=== PATIENT | male | born 1970 | race American Indian/Alaskan Native ===

== ENCOUNTER 2020-10-02 00:33 | Inpatient (IN) | payer BC, OTHER, SELFPAY ==
[2020-10-02] MEDS ORDERED: fentaNYL 100 MCG/2 ML INJ IV PRN (00:53)
[2020-10-02] MEDS ORDERED: MINERAL OIL/PETROLATUM, WHITE OPHTH OINT 3.5 GM OU PRN (00:53)
[2020-10-02] MEDS ORDERED: LIP THERAPY VASELINE TP PRN (00:53)
--- NOTE | 2020-10-02 00:55 | Emergency Department Report ---
ED Altered Mental Status HPI - General Chief Complaint: Altered Mental Status Stated Complaint: POSS STROKE PUI?: No Time Seen by Provider: 10/02/20 00:33 Mode of arrival: Stretcher Limitations: Altered Mental Status, Physical Limitation - History of Present Illness Initial Comments: Patient is a 50-year-old male who presents emergency room for altered mental status and decreased depression. Patient's minimally responsive. Patient is not responsive to pain. Patient brought in by EMS. EMS states that EMS states that patient's last known well time was last night 8 PM on 09/30/2020. Patient family states that the patient was sitting in the recliner at 8 PM on 09/30/2020 and when the family member returned home patient was in the same position but had vomited on himself. Patient was found to be unresponsive by the family and the family called EMS. EMS initiated a stroke alert due to the patient's mental status and minimal responsiveness. Patient has a history of diabetes hypertension. Patient was also diagnosed with COVID-19 1 week ago. MD Complaint: altered mental status, decreased responsiveness -: Sudden Consistency of Symptoms: constant - Related Data Allergies Allergy/AdvReac Type Severity Reaction Status Date / Time No Known Allergies Allergy Verified 10/02/20 01:44 ED Review of Systems ROS: Stated complaint: POSS STROKE Other details as noted in HPI Comment: Unobtainable due to pts medical conditions ED Past Medical Hx - Past Medical History Previous Medical History?: Yes Hx Hypertension: Yes Hx Diabetes: Yes - Surgical History Past Surgical History?: No - Family History Family history: no significant - Social History Smoking Status: Unknown if ever smoked Substance Use Type: None ED Physical Exam - General Limitations: Altered Mental Status, Physical Limitation General appearance: obtunded - Head Head exam: Present: atraumatic, normocephalic - Eye Eye exam: Present: normal appearance, PERRL Pupils: Present: normal accommodation - ENT ENT exam: Present: mucous membranes dry - Neck Neck exam: Present: normal inspection - Respiratory Respiratory exam: Present: normal lung sounds bilaterally. Absent: respiratory distress, wheezes, rales - Cardiovascular Cardiovascular Exam: Present: regular rate, normal rhythm. Absent: systolic murmur, diastolic murmur, rubs, gallop - GI/Abdominal GI/Abdominal exam: Present: soft, normal bowel sounds - Rectal Rectal exam: Present: deferred - Extremities Exam Extremities exam: Present: normal inspection - Back Exam Back exam: Present: normal inspection - Neurological Exam Neurological exam: Present: altered - Expanded Neurological Exam Expanded Best Eye Response (Parlin): (3) open to voice Best Motor Response ([place]): (1) no motor response Best Verbal Response ([place]lin): (1) no verbal response Parlin Total: 5 - Skin Skin exam: Present: warm, dry, intact, normal color. Absent: rash - Assessment Assessment Interval: Baseline - Level of Consciousness 1a. Level of Consciousness: coma/unresponsive - LOC Questions 1b. LOC Questions: dysarthric/intubated - LOC Command 1c. LOC Commands: performs no tasks correctly - Best Gaze 2. Best Gaze: normal - Visual 3. Visual: no visual loss - Facial Palsy 4. Facial Palsy: normal symmetrical movement - Motor Arm 5a. Motor Arm Left: no movement 5b. Motor Arm Right: no movement - Motor Leg 6a. Motor Leg Left: no movement 6b. Motor Leg Right: no movement - Limb Ataxia 7. Limb Ataxia: absent - Sensory 8. Sensory: no response/quadraplegic - Best Language 9. Best Language: coma/unresponsive - Dysarthria 10. Dysarthria: intubated or other barrier - Extinction and Inattention 11. Extinction/Inattention: no abnormality - Scoring Total Score: 27 Stroke Severity: Severe Stroke ED Course Vital Signs 10/01/20 10/01/20 10/01/20 21:30 22:00 22:30 Temperature Pulse Rate Respiratory Rate Blood Pressure 139/78 139/78 139/78 Blood Pressure [Right] O2 Sat by Pulse 95 95 90 Oximetry 10/01/20 10/01/20 10/02/20 23:00 23:30 00:00 Temperature Pulse Rate Respiratory Rate Blood Pressure 139/78 139/78 139/78 Blood Pressure [Right] O2 Sat by Pulse 96 93 92 Oximetry 10/02/20 10/02/20 10/02/20 00:30 01:00 01:11 Temperature Pulse Rate 104 H 96 H Respiratory 20 Rate Blood Pressure 139/78 129/64 129/64 Blood Pressure [Right] O2 Sat by Pulse 92 93 94 Oximetry 10/02/20 10/02/20 10/02/20 01:31 01:37 01:41 Temperature 98.4 F Pulse Rate 90 93 H Respiratory 20 20 Rate Blood Pressure 151/96 Blood Pressure 154/96 [Right] O2 Sat by Pulse 98 97 97 Oximetry 10/02/20 10/02/20 10/02/20 02:29 02:31 02:36 Temperature Pulse Rate 105 H 106 H Respiratory 20 21 Rate Blood Pressure 162/84 162/84 Blood Pressure [Right] O2 Sat by Pulse 93 Oximetry 10/02/20 10/02/20 10/02/20 02:59 03:01 03:31 Temperature Pulse Rate 109 H 93 H 86 Respiratory 20 20 Rate Blood Pressure 162/85 103/61 Blood Pressure [Right] O2 Sat by Pulse 94 94 Oximetry 10/02/20 10/02/20 10/02/20 04:01 04:03 04:31 Temperature Pulse Rate 82 82 76 Respiratory 20 20 Rate Blood Pressure 125/76 125/76 108/63 Blood Pressure [Right] O2 Sat by Pulse 95 95 96 Oximetry 10/02/20 05:01 Temperature Pulse Rate 75 Respiratory 20 Rate Blood Pressure 117/67 Blood Pressure [Right] O2 Sat by Pulse 98 Oximetry - Reevaluation(s) Reevaluation #1: Patient intubated. Patient on monitor. Patient stable on vent. Code stroke has already been initiated. 10/02/20 00:48 Reevaluation #2: Patient's vital signs are stable. Patient is on the ventilator. Patient on sedation. Sedation will be changed as needed. 10/02/20 01:12 Reevaluation #3: Patient's vital signs stable. Patient's heart rate improved. Patient stable. Patient's blood pressure stable. Patient still on the ventilator. 10/02/20 02:13 Reevaluation #4: Patient is starting to move while on the vent. Patient will have propofol added. Patient is already maxed on fentanyl. 10/02/20 03:03 Reevaluation #5: Patient admitted to the hospitalist service. 10/02/20 05:14 - Consultations Consultation #1: I discussed case with neurology. Neurology wants patient having immediate CT and CTA of the head neck. 10/02/20 00:55 Consultation #2: Hospitalist consulted for admission. Hospitalist to admit patient. 10/02/20 05:14 - Intubation Time Out Performed: Yes Sedative: Etomidate Paralytic: Rocuronium Laryngoscope: fiberoptic video scope Assist Device Used: fiberoptic device ET Tube Size: 7.5 Tube Secured Depth (cm): 24 Tube Secured Location: teeth Tube Placement Confirmation: visualized tube passing t, equal breath sounds bilat, no breath sounds over epi, confirmation by capnometr Patient Tolerated Procedure: well, no complications Intubation Complications: none - Lab Data Result diagrams: 10/02/20 01:01 10/02/20 01:01 Lab Results 10/02/20 10/02/20 10/02/20 Range/Units 01:01 01:01 01:01 WBC 11.0 (4.5-11.0) K/mm3 RBC 5.04 H (3.65-5.03) M/mm3 Hgb 13.7 (11.8-15.2) gm/dl Hct 41.0 (35.5-45.6) % MCV 81 L (84-94) fl MCH 27 L (28-32) pg MCHC 33 (32-34) % RDW 14.3 (13.2-15.2) % Plt Count 151 (140-440) K/mm3 Add Manual Diff Complete Total Counted 100 Seg Neuts % (Manual) 85.0 H (40.0-70.0) % Band Neutrophils % 3.0 % Lymphocytes % (Manual) 1.0 L (13.4-35.0) % Monocytes % (Manual) 11.0 H (0.0-7.3) % Nucleated RBC % 1.0 H (0.0-0.9) % Seg Neutrophils # Man 9.4 H (1.8-7.7) K/mm3 Band Neutrophils # 0.3 K/mm3 Lymphocytes # (Manual) 0.1 L (1.2-5.4) K/mm3 Abs React Lymphs (Man) 0.0 K/mm3 Monocytes # (Manual) 1.2 H (0.0-0.8) K/mm3 Eosinophils # (Manual) 0.0 (0.0-0.4) K/mm3 Basophils # (Manual) 0.0 (0.0-0.1) K/mm3 Metamyelocytes # 0.0 K/mm3 Myelocytes # 0.0 K/mm3 Promyelocytes # 0.0 K/mm3 Blast Cells # 0.0 K/mm3 WBC Morphology Not Reportable Hypersegmented Neuts Not Reportable Hyposegmented Neuts Not Reportable Hypogranular Neuts Not Reportable Smudge Cells Not Reportable Toxic Granulation Not Reportable Toxic Vacuolation Not Reportable Dohle Bodies Not Reportable Pelger-Huet Anomaly Not Reportable Yohan Rods Not Reportable Platelet Estimate Consistent w auto Clumped Platelets Not Reportable Plt Clumps, EDTA Not Reportable Large Platelets Few Giant Platelets Not Reportable Platelet Satelliting Not Reportable Plt Morphology Comment Not Reportable RBC Morphology Not Reportable Dimorphic RBCs Not Reportable Polychromasia Not Reportable Hypochromasia Not Reportable Poikilocytosis Not Reportable Anisocytosis 1+ Microcytosis Not Reportable Macrocytosis Not Reportable Spherocytes Not Reportable Pappenheimer Bodies Not Reportable Sickle Cells Not Reportable Target Cells Not Reportable Tear Drop Cells Not Reportable Ovalocytes Not Reportable Helmet Cells Not Reportable [place] Bodies Not Reportable [place] Rings Not Reportable Obdulia Cells Not Reportable Bite Cells Not Reportable Crenated Cell Not Reportable Elliptocytes Not Reportable Acanthocytes (Spur) Not Reportable Rouleaux Not Reportable Hemoglobin C Crystals Not Reportable Schistocytes Not Reportable Malaria parasites Not Reportable Shekhar Bodies Not Reportable Hem Pathologist Commnt No PT 15.3 H (12.2-14.9) Sec. INR 1.16 H (0.87-1.13) APTT 30.9 (24.2-36.6) Sec. Thrombin Time 23.2 H (15.1-19.6) Sec. ABG pH (7.320-7.450) POC ABG pCO2 (32.0-48.0) mmHg POC ABG pO2 (83-108) mmHg POC ABG HCO3 ABG O2 Saturation (0-100) POC ABG Base Excess ABG Hemoglobin (12.0-17.5) ABG Oxyhemoglobin (94-98) ABG Methemoglobin (0.0-1.5) ABG Sodium (136.0-145.0) mmol/L ABG Potassium (3.40-4.50) mmol/L ABG Chloride (98-107) mmol/L ABG Glucose (65-95) mg/dL Carboxyhemoglobin (0.5-1.5) FiO2 % Sodium 133 L (137-145) mmol/L Potassium 4.3 (3.6-5.0) mmol/L Chloride 85.1 L (98-107) mmol/L Carbon Dioxide 28 (22-30) mmol/L Anion Gap 24 mmol/L BUN 66 H (9-20) mg/dL Creatinine 5.6 H (0.8-1.3) mg/dL Estimated GFR 13 ml/min BUN/Creatinine Ratio 12 % Glucose 292 H (75-100) mg/dL Calcium 9.4 (8.4-10.2) mg/dL Total Bilirubin 0.80 (0.1-1.2) mg/dL AST 173 H (5-40) units/L ALT 139 H (7-56) units/L Alkaline Phosphatase 69 (35-129) units/L Total Creatine Kinase 2544 H (55-170) units/L CK-MB (CK-2) 14.8 H (0.0-4.0) ng/mL CK-MB (CK-2) Rel Index 0.5 (0-4) Troponin T 0.036 H (0.00-0.029) ng/mL Total Protein 7.8 (6.3-8.2) g/dL Albumin 3.3 L (3.9-5) g/dL Albumin/Globulin Ratio 0.7 % Triglycerides 427 H (2-149) mg/dL Cholesterol 165 (50-199) mg/dL LDL Cholesterol Direct TNR HDL Cholesterol 31 L (40-59) mg/dL Cholesterol/HDL Ratio 5.32 % Arterial Blood Glucose (65-95) mg/dL Urine Color (Yellow) Urine Turbidity (Clear) Urine pH (5.0-7.0) Ur Specific Adkins (1.003-1.030) Urine Protein (Negative) mg/dL Urine Glucose (UA) (Negative) mg/dL Urine Ketones (Negative) mg/dL Urine Blood (Negative) Urine Nitrite (Negative) Urine Bilirubin (Negative) Urine Urobilinogen (<2.0) mg/dL Ur Leukocyte Esterase (Negative) Urine WBC (Auto) (0.0-6.0) /HPF Urine RBC (Auto) (0.0-6.0) /HPF U Epithel Cells (Auto) (0-13.0) /HPF Amorphous Crystals Urine Mucus /HPF Urine Opiates Screen Urine Methadone Screen Ur Barbiturates Screen Ur Phencyclidine Scrn Ur Amphetamines Screen U Benzodiazepines Scrn Urine Cocaine Screen U Marijuana (THC) Screen Drugs of Abuse Note Plasma/Serum Alcohol (0-0.07) % 10/02/20 10/02/20 10/02/20 Range/Units 01:01 02:59 02:59 WBC (4.5-11.0) K/mm3 RBC (3.65-5.03) M/mm3 Hgb (11.8-15.2) gm/dl Hct (35.5-45.6) % MCV (84-94) fl MCH (28-32) pg MCHC (32-34) % RDW (13.2-15.2) % Plt Count (140-440) K/mm3 Add Manual Diff Total Counted Seg Neuts % (Manual) (40.0-70.0) % Band Neutrophils % % Lymphocytes % (Manual) (13.4-35.0) % Monocytes % (Manual) (0.0-7.3) % Nucleated RBC % (0.0-0.9) % Seg Neutrophils # Man (1.8-7.7) K/mm3 Band Neutrophils # K/mm3 Lymphocytes # (Manual) (1.2-5.4) K/mm3 Abs React Lymphs (Man) K/mm3 Monocytes # (Manual) (0.0-0.8) K/mm3 Eosinophils # (Manual) (0.0-0.4) K/mm3 Basophils # (Manual) (0.0-0.1) K/mm3 Metamyelocytes # K/mm3 Myelocytes # K/mm3 Promyelocytes # K/mm3 Blast Cells # K/mm3 WBC Morphology Hypersegmented Neuts Hyposegmented Neuts Hypogranular Neuts Smudge Cells Toxic Granulation Toxic Vacuolation Dohle Bodies Pelger-Huet Anomaly Yohan Rods Platelet Estimate Clumped Platelets Plt Clumps, EDTA Large Platelets Giant Platelets Platelet Satelliting Plt Morphology Comment RBC Morphology Dimorphic RBCs Polychromasia Hypochromasia Poikilocytosis Anisocytosis Microcytosis Macrocytosis Spherocytes Pappenheimer Bodies Sickle Cells Target Cells Tear Drop Cells Ovalocytes Helmet Cells [place] Bodies [place] Rings Obdulia Cells Bite Cells Crenated Cell Elliptocytes Acanthocytes (Spur) Rouleaux Hemoglobin C Crystals Schistocytes Malaria parasites Shekhar Bodies Hem Pathologist Commnt PT (12.2-14.9) Sec. INR (0.87-1.13) APTT (24.2-36.6) Sec. Thrombin Time (15.1-19.6) Sec. ABG pH (7.320-7.450) POC ABG pCO2 (32.0-48.0) mmHg POC ABG pO2 (83-108) mmHg POC ABG HCO3 ABG O2 Saturation (0-100) POC ABG Base Excess ABG Hemoglobin (12.0-17.5) ABG Oxyhemoglobin (94-98) ABG Methemoglobin (0.0-1.5) ABG Sodium (136.0-145.0) mmol/L ABG Potassium (3.40-4.50) mmol/L ABG Chloride (98-107) mmol/L ABG Glucose (65-95) mg/dL Carboxyhemoglobin (0.5-1.5) FiO2 % Sodium (137-145) mmol/L Potassium (3.6-5.0) mmol/L Chloride (98-107) mmol/L Carbon Dioxide (22-30) mmol/L Anion Gap mmol/L BUN (9-20) mg/dL Creatinine (0.8-1.3) mg/dL Estimated GFR ml/min BUN/Creatinine Ratio % Glucose (75-100) mg/dL Calcium (8.4-10.2) mg/dL Total Bilirubin (0.1-1.2) mg/dL AST (5-40) units/L ALT (7-56) units/L Alkaline Phosphatase (35-129) units/L Total Creatine Kinase (55-170) units/L CK-MB (CK-2) (0.0-4.0) ng/mL CK-MB (CK-2) Rel Index (0-4) Troponin T (0.00-0.029) ng/mL Total Protein (6.3-8.2) g/dL Albumin (3.9-5) g/dL Albumin/Globulin Ratio % Triglycerides (2-149) mg/dL Cholesterol (50-199) mg/dL LDL Cholesterol Direct HDL Cholesterol (40-59) mg/dL Cholesterol/HDL Ratio % Arterial Blood Glucose (65-95) mg/dL Urine Color Alison (Yellow) Urine Turbidity Cloudy (Clear) Urine pH 5.0 (5.0-7.0) Ur Specific Adkins 1.025 (1.003-1.030) Urine Protein >500 (Negative) mg/dL Urine Glucose (UA) 50 (Negative) mg/dL Urine Ketones Neg (Negative) mg/dL Urine Blood Lg (Negative) Urine Nitrite Neg (Negative) Urine Bilirubin Neg (Negative) Urine Urobilinogen < 2.0 (<2.0) mg/dL Ur Leukocyte Esterase Neg (Negative) Urine WBC (Auto) 8.0 H (0.0-6.0) /HPF Urine RBC (Auto) 3.0 (0.0-6.0) /HPF U Epithel Cells (Auto) 2.0 (0-13.0) /HPF Amorphous Crystals Few Urine Mucus Few /HPF Urine Opiates Screen Negative Urine Methadone Screen Negative Ur Barbiturates Screen Negative Ur Phencyclidine Scrn Negative Ur Amphetamines Screen Negative U Benzodiazepines Scrn Negative Urine Cocaine Screen Negative U Marijuana (THC) Screen Negative Drugs of Abuse Note Disclamer Plasma/Serum Alcohol < 0.01 (0-0.07) % // Range/Units 03:51 WBC (4.5-11.0) K/mm3 RBC (3.65-5.03) M/mm3 Hgb (11.8-15.2) gm/dl Hct (35.5-45.6) % MCV (84-94) fl MCH (28-32) pg MCHC (32-34) % RDW (13.2-15.2) % Plt Count (140-440) K/mm3 Add Manual Diff Total Counted Seg Neuts % (Manual) (40.0-70.0) % Band Neutrophils % % Lymphocytes % (Manual) (13.4-35.0) % Monocytes % (Manual) (0.0-7.3) % Nucleated RBC % (0.0-0.9) % Seg Neutrophils # Man (1.8-7.7) K/mm3 Band Neutrophils # K/mm3 Lymphocytes # (Manual) (1.2-5.4) K/mm3 Abs React Lymphs (Man) K/mm3 Monocytes # (Manual) (0.0-0.8) K/mm3 Eosinophils # (Manual) (0.0-0.4) K/mm3 Basophils # (Manual) (0.0-0.1) K/mm3 Metamyelocytes # K/mm3 Myelocytes # K/mm3 Promyelocytes # K/mm3 Blast Cells # K/mm3 WBC Morphology Hypersegmented Neuts Hyposegmented Neuts Hypogranular Neuts Smudge Cells Toxic Granulation Toxic Vacuolation Dohle Bodies Pelger-Huet Anomaly Yohan Rods Platelet Estimate Clumped Platelets Plt Clumps, EDTA Large Platelets Giant Platelets Platelet Satelliting Plt Morphology Comment RBC Morphology Dimorphic RBCs Polychromasia Hypochromasia Poikilocytosis Anisocytosis Microcytosis Macrocytosis Spherocytes Pappenheimer Bodies Sickle Cells Target Cells Tear Drop Cells Ovalocytes Helmet Cells [place] Bodies [place] Rings [place] Cells Bite Cells Crenated Cell Elliptocytes Acanthocytes (Spur) Rouleaux Hemoglobin C Crystals Schistocytes Malaria parasites Shekhar Bodies Hem Pathologist Commnt PT (12.2-14.9) Sec. INR (0.87-1.13) APTT (24.2-36.6) Sec. Thrombin Time (15.1-19.6) Sec. ABG pH 7.393 (7.320-7.450) POC ABG pCO2 46.2 (32.0-48.0) mmHg POC ABG pO2 55.2 L (83-108) mmHg POC ABG HCO3 27.5 ABG O2 Saturation 86.0 (0-100) POC ABG Base Excess 1.9 ABG Hemoglobin 16.5 (12.0-17.5) ABG Oxyhemoglobin 85.4 L (94-98) ABG Methemoglobin 0 (0.0-1.5) ABG Sodium 132.0 L (136.0-145.0) mmol/L ABG Potassium 3.8 (3.40-4.50) mmol/L ABG Chloride 89.0 L (98-107) mmol/L ABG Glucose 372 H (65-95) mg/dL Carboxyhemoglobin 0.7 (0.5-1.5) FiO2 % 100.0 Sodium (137-145) mmol/L Potassium (3.6-5.0) mmol/L Chloride (98-107) mmol/L Carbon Dioxide (22-30) mmol/L Anion Gap mmol/L BUN (9-20) mg/dL Creatinine (0.8-1.3) mg/dL Estimated GFR ml/min BUN/Creatinine Ratio % Glucose (75-100) mg/dL Calcium (8.4-10.2) mg/dL Total Bilirubin (0.1-1.2) mg/dL AST (5-40) units/L ALT (7-56) units/L Alkaline Phosphatase (35-129) units/L Total Creatine Kinase (55-170) units/L CK-MB (CK-2) (0.0-4.0) ng/mL CK-MB (CK-2) Rel Index (0-4) Troponin T (0.00-0.029) ng/mL Total Protein (6.3-8.2) g/dL Albumin (3.9-5) g/dL Albumin/Globulin Ratio % Triglycerides (2-149) mg/dL Cholesterol (50-199) mg/dL LDL Cholesterol Direct HDL Cholesterol (40-59) mg/dL Cholesterol/HDL Ratio % Arterial Blood Glucose 372 H (65-95) mg/dL Urine Color (Yellow) Urine Turbidity (Clear) Urine pH (5.0-7.0) Ur Specific Adkins (1.003-1.030) Urine Protein (Negative) mg/dL Urine Glucose (UA) (Negative) mg/dL Urine Ketones (Negative) mg/dL Urine Blood (Negative) Urine Nitrite (Negative) Urine Bilirubin (Negative) Urine Urobilinogen (<2.0) mg/dL Ur Leukocyte Esterase (Negative) Urine WBC (Auto) (0.0-6.0) /HPF Urine RBC (Auto) (0.0-6.0) /HPF U Epithel Cells (Auto) (0-13.0) /HPF Amorphous Crystals Urine Mucus /HPF Urine Opiates Screen Urine Methadone Screen Ur Barbiturates Screen Ur Phencyclidine Scrn Ur Amphetamines Screen U Benzodiazepines Scrn Urine Cocaine Screen U Marijuana (THC) Screen Drugs of Abuse Note Plasma/Serum Alcohol (0-0.07) % - EKG Data -: EKG Interpreted by Me EKG shows normal: sinus rhythm, axis, intervals, QRS complexes, ST-T waves Rate: tachycardia Interpretation: other (PVCs and bigeminy) - Radiology Data Radiology results: report reviewed, image reviewed interpreted by me: Chest x-ray: Bilateral pneumonia, no pneumothorax, ET tube in good placement, no osseous findings, CHEST 1 VIEW 10/02/2020 1:18 AM INDICATION / CLINICAL INFORMATION: ETT placement. Code stroke. COMPARISON: None available. FINDINGS: SUPPORT DEVICES: Endotracheal tube has been placed with the tip 3.6 cm above the juan daniel. HEART / MEDIASTINUM: Heart is mildly enlarged. LUNGS / PLEURA: Patchy bilateral airspace disease. No pneumothorax. ADDITIONAL FINDINGS: No significant additional findings. IMPRESSION: 1. Endotracheal tube in expected position. 2. Bilateral pneumonia. CT HEAD WITHOUT CONTRAST INDICATION / CLINICAL INFORMATION: CODE STROKE PROTOCOL!!!! Pt has stroke-like symptoms.. TECHNIQUE: All CT scans at this location are performed using CT dose reduction for ALARA by means of automated exposure control. COMPARISON: None available. FINDINGS: HEMORRHAGE: None. EXTRA-AXIAL SPACES: Normal in size and morphology for the patient's age. VENTRICULAR SYSTEM: Normal in size and morphology for the patient's age. CEREBRAL PARENCHYMA: Subtle areas of subcortical white matter hypodensity in the right frontal lobe. MIDLINE SHIFT / HERNIATION: None. CEREBELLUM / BRAINSTEM: No significant abnormality. ORBITS: Normal as visualized. SOFT TISSUES: No significant abnormality. SKULL: No significant abnormality. PARANASAL SINUSES / MASTOID AIR CELLS: Normal as visualized. ADDITIONAL FINDINGS: None. IMPRESSION: 1. Subtle subcortical white matter hypodensity in the right frontal lobe. No acute bleed. CT angio head INDICATION / CLINICAL INFORMATION: 50 years Male; CODE STROKE PROTOCOL!!!! Pt has stroke-like symptoms.. TECHNIQUE: Thin cut axial images obtained through the head during IV bolus contrast administration. Sagittal, coronal, and 3 plane MIP reconstructions performed by the technologist. NASCET type criteria used evaluate stenoses. Automated exposure control utilized for radiation reduction purposes. COMPARISON: None available. FINDINGS: INTERNAL CAROTID ARTERIES: There are foci of calcification involving distal in ternal carotid arteries. The motion degrades image quality in this intubated patient. However, there is no clear evidence of significant focal stenosis involving distal ICAs. The vertebral basilar system VERTEBROBASILAR SYSTEM: Also appears to demonstrate appropriate caliber without significant focal stenosis. CEREBRAL ARTERIES: The proximal cerebral arteries and adjacent segments dem onstrate appropriate caliber without significant focal stenosis or evidence of large vessel occlusi on. ANEURYSM: None identified. ADDITIONAL FINDINGS: Remainder of the surrounding soft tissues are grossly normal. IMPRESSION: There is no CTA evidence of large vessel occlusion CT angio neck INDICATION / CLINICAL INFORMATION: 50 years Male; CODE STROKE PROTOCOL!!!! Pt has stroke-like symptoms.. TECHNIQUE: Thin cut axial images obtained through the head during IV bolus contrast administration. Sagittal, coronal, and 3 plane MIP reconstructions performed by the technologist. NASCET type criteria used evaluate stenoses. All CT scans at this location are performed using CT dose reduction for ALARA by means of automated exposure control. COMPARISON: None available. FINDINGS: CAROTID ARTERIES: The motion and beam hardening degrade the image quality in this intubated patient. However, there is no clear evidence of significant stenosis involving carotid arteries by NASCET criteria. VERTEBRAL ARTERIES: The visualized vertebral arteries also appear to demo nstrate appropriate caliber without significant focal stenosis. ARCH: The arch vessels are particularly obscured by the streak artifact from the dense contrast within the adjacent venous structures. However, there is no clear evidence of significant stenosis involving origins of the arch vessels. ADDITIONAL FINDINGS: There is notable consolidation within the visualized left upper lung. Milder findings are seen on the right. IMPRESSION: The motion degrades the image quality in this intubated patient. However, there is no clear CTA evidence of significant stenosis involving cervical carotid or vertebral arteries by NASCET criteria. There is dense consolidation involving the visualized left upper lung. - Medical Decision Making Patient is a 50-year-old male presents emergency room for altered mental status. Patient diagnosed 1 week ago with Covid. Patient had a code stroke initiated after initial evaluation. During this evaluation, the patient was found to be hypoxic and minimally responsive. Patient was immediately intubated to protect his airway. Patient intubated without difficulty see procedure note. I discussed the case with neurology neurology recommends to proceed with code stroke to include CT of the head, CTA of the head and neck. Patient had a CT scan of the head was negative for acute findings. Patient had a CTA of the head and neck and they were both negative for large vessel occlusions. Patient had labs done which were multiple lab abnormalities including acute renal failure, rhabdomyolysis, elevated troponin. Patient given fluids and early antibiotics. Patient had a chest x-ray which shows bilateral pneumonia mostly consistent with COVID-19. Patient given Decadron, Rocephin and Zithromax. Patient required 2 forms of sedation to tolerate the vent. Patient admitted to the hospital service for further evaluation and treatment and admitted into the ICU. Critical care time documented due to the multiple reassessments, prolonged time at the bedside, interpretation of diagnostics and labs. - Differential Diagnosis Altered mental status, Covid pneumonia, sepsis, CVA, ICH, Critical Care Time: Yes Critical care time in (mins) excluding proc time.: 80 Critical care attestation.: If time is entered above; I have spent that time in minutes in the direct care of this critically ill patient, excluding procedure time. Critical Care Time: 80 minutes ED Disposition Clinical Impression: Unresponsiveness, COVID-19, Elevated CK, Elevated troponin I level, Acute encephalopathy Altered mental status Qualifiers: Altered mental status type: unspecified Qualified Code(s): R41.82 - Altered mental status, unspecified Respiratory failure Qualifiers: Chronicity: acute Respiratory failure complication: hypoxia Qualified Code(s): J96.01 - Acute respiratory failure with hypoxia Acute renal failure Qualifiers: Acute renal failure type: unspecified Qualified Code(s): N17.9 - Acute kidney failure, unspecified Rhabdomyolysis Qualifiers: Rhabdomyolysis type: non-traumatic Qualified Code(s): M62.82 - Rhabdomyolysis Pneumonia Qualifiers: Pneumonia type: due to unspecified organism Laterality: bilateral Lung location: unspecified part of lung Qualified Code(s): J18.9 - Pneumonia, un specified organism Sepsis Qualifiers: Sepsis type: sepsis due to unspecified organism Sepsis acute organ dysfunction status: with acute organ dysfunction Severe sepsis acute organ dysfunction type: acute respiratory failure Acute respiratory failure type: with hypoxia Severe sepsis shock status: without septic shock Qualified Code(s): A41.9 - Sepsis, unspecified organism Disposition: OP ADMIT IP TO THIS HOSP Is pt being admited?: Yes Does the pt Need Aspirin: No Condition: Critical Instructions: Bacterial Pneumonia (ED) Time of Disposition: 05:20
--- NOTE | 2020-10-02 01:25 | Consultation ---
History of Present Illness History of present illness: [facility] Consult Note # Demographics Consult Type: Acute Stroke Level 2 (4.5-24 hrs) Patient Location: Emergency Room First Name: Barron Last Name: Tyler Date of : 1970 Age: 50 Gender: Male Time of Initial Page (Eastern Time): 10/02/2020, 00:39 Time of Return Call (Eastern Time): 10/02/2020, 00:39 # HPI History: 50 year-old male presented to the ED after being found unresponsive. He was intubated upon arrival to the ED for airway protection. EMS was concerned about unilateral weakness (unclear which side). Patient was diagnosed with COVID 1 week ago. # Exam Vitals: vital signs reviewed # PMH-FH-SH Past Medical History: hypertension COVID # Assessment Impression: Acute encephalopathy - possible stroke # Plan Thrombolytic/Intervention: NOT IV Thrombolysis or IA Intervention candidate Thrombolytic Exclusion: > 4.5 hours Intraarterial Exclusion: CTA pending Labs: CBC comprehensive metabolic panel Imaging: (urgency: STAT): CT Head without contrast CT Angiogram Head and CT Angiogram Neck AND call back with results if abnormal Imaging: (urgency: routine): If symptoms persist without clear cause, consider brain MRI. Therapy/Evaluation: NPO until swallow evaluation PT/OT evaluation speech/swallow consultation Medication: aspirin 325 mg daily start statin with goal of LDL < 70 Other: permissive hypertension telemetry monitoring I have discussed my recommendations with the referring provider Disposition: admit Medications and Allergies Active Meds: Active Medications Fentanyl (Fentanyl 100 Mcg/2 Ml Inj) 50 mcg IV Q10MIN PRN PRN Reason: ANALGESIA Hydrophilic Ointment (Lip Therapy Vaseline) 1 applic TP Q2HR PRN PRN Reason: Dry Lips Fentanyl Citrate (Fentanyl Drip Premix) 2,000 mcg in 100 mls @ 0 mls/hr IV TITR MUSTAPHA; Protocol Multi-Ingred Cream/Lotion/Oil/Oint (Mineral Oil/Petrolatum, White Ophth Oint 3.5 Gm) 1 applic OU Q4HR PRN PRN Reason: Dry Eye(s) Physical Examination - Vital Signs Vital Signs: Vital Signs Pulse BP Pulse Ox 96 H 129/64 94 10/02/20 01:11 10/02/20 01:11 10/02/20 01:11
[2020-10-02 01:26] LABS: Hemoglobin 13.7 gm/dl (11.8-15.2); Mean Corpuscular HGB Conc 33 % (32-34); Mean Corpuscular Volume 81 fl (84-94); Red Blood Count 5.04 M/mm3 (3.65-5.03); Red Cell Distribution Width 14.3 % (13.2-15.2)
--- NOTE | 2020-10-02 01:28 | XRay Report ---
CHEST 1 VIEW 10/02/2020 1:18 AM INDICATION / CLINICAL INFORMATION: ETT placement. Code stroke. COMPARISON: None available. FINDINGS: SUPPORT DEVICES: Endotracheal tube has been placed with the tip 3.6 cm above the juan daniel. HEART / MEDIASTINUM: Heart is mildly enlarged. LUNGS / PLEURA: Patchy bilateral airspace disease. No pneumothorax. ADDITIONAL FINDINGS: No significant additional findings. IMPRESSION: 1. Endotracheal tube in expected position. 2. Bilateral pneumonia. Signer Name: Aleida Arteaga MD Signed: 10/02/2020 1:24 AM Workstation Name: [id number]
[2020-10-02 01:31] LABS: Platelet Count 151 K/mm3 (140-440)
[2020-10-02 01:35] LABS: INR 1.16 (0.87-1.13)
[2020-10-02 01:36] LABS: Partial Thromboplastin Time 30.9 Sec. (24.2-36.6); Thrombin Time 23.2 Sec. (15.1-19.6)
[2020-10-02 01:42] LABS: Creatine Kinase MB 14.8 ng/mL (0.0-4.0)
[2020-10-02 01:44] LABS: Alanine Aminotransferase 139 units/L (7-56); Albumin 3.3 g/dL (3.9-5); Blood Urea Nitrogen 66 mg/dL (9-20); Calcium 9.4 mg/dL (8.4-10.2); Hemolysis Index 19
[2020-10-02 01:47] LABS: BUN/Creatinine Ratio 12
[2020-10-02] MEDS: fentaNYL DRIP Premix 2,000 MCG/100 ML BAG IV SCH ×4 (01:59→18:57)
[2020-10-02 02:04] LABS: Band Neutrophils # (Manual) 0.3 K/mm3; Total Cells Counted 100
[2020-10-02 02:05] LABS: Anisocytosis 1+
[2020-10-02 02:06] LABS: Large Platelets Few; Platelet Estimate Consistent w Auto
[2020-10-02 02:17] LABS: Chol/HDL Ratio 5.32 %; HDL Cholesterol 31 mg/dL (40-59); LDL Cholesterol,Direct TNR mg/dL (50-130)
--- NOTE | 2020-10-02 02:57 | Cat Scan Report ---
CT HEAD WITHOUT CONTRAST INDICATION / CLINICAL INFORMATION: CODE STROKE PROTOCOL!!!! Pt has stroke-like symptoms.. TECHNIQUE: All CT scans at this location are performed using CT dose reduction for ALARA by means of automated exposure control. COMPARISON: None available. FINDINGS: HEMORRHAGE: None. EXTRA-AXIAL SPACES: Normal in size and morphology for the patient's age. VENTRICULAR SYSTEM: Normal in size and morphology for the patient's age. CEREBRAL PARENCHYMA: Subtle areas of subcortical white matter hypodensity in the right frontal lobe. MIDLINE SHIFT / HERNIATION: None. CEREBELLUM / BRAINSTEM: No significant abnormality. ORBITS: Normal as visualized. SOFT TISSUES: No significant abnormality. SKULL: No significant abnormality. PARANASAL SINUSES / MASTOID AIR CELLS: Normal as visualized. ADDITIONAL FINDINGS: None. IMPRESSION: 1. Subtle subcortical white matter hypodensity in the right frontal lobe. No acute bleed. CODE STROKE Time of Communication (CASINO DEALER/CDT): 1:51 AM Licensed Practitioner Receiving Report: Dr. Costa in the ED Signer Name: Aleida Arteaga MD Signed: 10/02/2020 2:52 AM Workstation Name: [id number]
[2020-10-02] MEDS ORDERED: cefTRIAXone/NS 2 GM/100 ML 2 GM/100 ML BAG IV ONE (03:01)
[2020-10-02] MEDS ORDERED: dexAMETHasone 4 MG/ML VIAL IV ONE (03:01)
[2020-10-02] MEDS ORDERED: SODIUM CHLORIDE 0.9% 1000 ML 1,000 ML IV ONE (03:01)
--- NOTE | 2020-10-02 03:07 | Cat Scan Report ---
CT angio neck INDICATION / CLINICAL INFORMATION: 50 years Male; CODE STROKE PROTOCOL!!!! Pt has stroke-like symptoms.. TECHNIQUE: Thin cut axial images obtained through the head during IV bolus contrast administration. S agittal, coronal, and 3 plane MIP reconstructions performed by the technologist. NASCET type criteria used evaluate stenoses. All CT scans at this location are performed using CT dose reduction for ALAR A by means of automated exposure control. COMPARISON: None available. FINDINGS: CAROTID ARTERIES: The motion and beam hardening degrade the image quality in this intubated patient. However, there is no clear evidence of significant stenosis involving carotid arteries by NASCET crit eria. VERTEBRAL ARTERIES: The visualized vertebral arteries also appear to demonstrate appropriate caliber without significant focal stenosis. ARCH: The arch vessels are particularly obscured by the streak artifact from the dense contrast withi n the adjacent venous structures. However, there is no clear evidence of significant stenosis involvi ng origins of the arch vessels. ADDITIONAL FINDINGS: There is notable consolidation within the visualized left upper lung. Milder fin dings are seen on the right. IMPRESSION: The motion degrades the image quality in this intubated patient. However, there is no clear CTA evide nce of significant stenosis involving cervical carotid or vertebral arteries by NASCET criteria. There is dense consolidation involving the visualized left upper lung. Signer Name: Sadiq Gibbs MD Signed: 10/02/2020 3:03 AM Workstation Name: [id number]
--- NOTE | 2020-10-02 03:13 | Cat Scan Report ---
CT angio head INDICATION / CLINICAL INFORMATION: 50 years Male; CODE STROKE PROTOCOL!!!! Pt has stroke-like symptoms.. TECHNIQUE: Thin cut axial images obtained through the head during IV bolus contrast administration. S agittal, coronal, and 3 plane MIP reconstructions performed by the technologist. NASCET type criteria used evaluate stenoses. Automated exposure control utilized for radiation reduction purposes. COMPARISON: None available. FINDINGS: INTERNAL CAROTID ARTERIES: There are foci of calcification involving distal internal carotid arteries . The motion degrades image quality in this intubated patient. However, there is no clear evidence of significant focal stenosis involving distal ICAs. The vertebral basilar system VERTEBROBASILAR SYSTEM: Also appears to demonstrate appropriate caliber without significant focal telma nosis. CEREBRAL ARTERIES: The proximal cerebral arteries and adjacent segments demonstrate appropriate calib er without significant focal stenosis or evidence of large vessel occlusion. ANEURYSM: None identified. ADDITIONAL FINDINGS: Remainder of the surrounding soft tissues are grossly normal. IMPRESSION: There is no CTA evidence of large vessel occlusion Signer Name: Sadiq Gibbs MD Signed: 10/02/2020 3:08 AM Workstation Name: [id number]
[2020-10-02 03:21] LABS: Amorphous Crystals,Urine Few; Bilirubin,Urine NEG (Negative); Blood,Urine LG (Negative); Color,Urine Amber (Yellow); Mucus,Urine FEW /HPF; Urobilinogen,Urine < 2.0 mg/dL (<2.0)
[2020-10-02 03:22] LABS: Protein,Urine >500 mg/dL (Negative)
[2020-10-02 03:23] LABS: Amphetamine Screen,Urine Negative; Benzodiazepines Screen,Urine Negative; Cannabinoid Screen,Urine Negative; Cocaine Screen,Urine Negative; Methadone Screen,Urine Negative; Opiate Screen,Urine Negative
[2020-10-02] MEDS ORDERED: AZITHROMYCIN/NS 500 MG/250 ML 500 MG/250 ML BAG IV SCH (04:00)
[2020-10-02] MEDS ORDERED: MORPHINE 2 MG/1 ML INJ IV PRN (05:23)
[2020-10-02] MEDS ORDERED: MAGNESIUM HYDROXIDE (MOM) ORAL LIQD UDC PO PRN (05:23)
[2020-10-02] MEDS ORDERED: METOCLOPRAMIDE 10 MG TAB PO PRN ×2 (05:23→05:53)
[2020-10-02] MEDS ORDERED: MORPHINE 4 MG/1 ML INJ IV PRN (05:23)
[2020-10-02] MEDS ORDERED: PROMETHAZINE 25 MG RECT SUPP PR PRN (05:23)
[2020-10-02] MEDS ORDERED: ACETAMINOPHEN 325 MG TAB PO PRN (05:23)
[2020-10-02] MEDS ORDERED: ONDANSETRON 4 MG/2 ML INJ IV PRN ×2 (05:23)
--- NOTE | 2020-10-02 05:47 | History and Physical Report ---
History of Present Illness Date of examination: 10/02/20 Date of admission: 10/02/2020 Chief complaint: Altered mental status Difficulty breathing History of present illness: 50-year-old male with known history of hypertension and diabetes mellitus brought into the emergency room by EMS for altered mental status and difficulty breathing. Patient was said to have been found at home unresponsive and last well-known time was about 8 PM on 09/30/2020. Patient's family indicates that patient was sitting in the recliner at about 8 PM on 09/30/2020 and was subseque ntly found in the same position today. Was said to have had some vomitus on his clothes and unresponsive. Patient was diagnosed with COVID-19 about a week ago. Most of the history was obtained from the ER staff. A code stroke was called while in the emergency room and CT scan of the head was subsequently ordered. Neurologist was also consulted . No further history was obtainable from patient as he is already intubated and sedated. Family members not available at this time. Work-up in the emergency room today, labs reveal total creatinine kinase of 2554, elevated liver enzymes, elevated troponin, BUN and creatinine of [address] scan of the head shows up to subcortical white matter hypodensity in the right frontal lobe. No acute bleed Chest x-ray reveals bilateral pneumonia Past History Past Medical History: diabetes, hypertension Past Surgical History: No surgical history Social history: no significant social history Family history: no significant family history Medications and Allergies Allergies Allergy/AdvReac Type Severity Reaction Status Date / Time No Known Allergies Allergy Verified 10/02/20 01:44 Active Meds: Active Medications Acetaminophen (Acetaminophen 325 Mg Tab) 650 mg PO Q4H PRN PRN Reason: Pain, Mild (1-3) Acetaminophen (Acetaminophen 325 Mg Tab) 650 mg PO Q6H PRN PRN Reason: Pain MILD(1-3)/Fever >100.5/CLIFTON Bisacodyl (Bisacodyl 10 Mg Rect Supp) 10 mg NH QDAY PRN PRN Reason: Constipation Fentanyl (Fentanyl 100 Mcg/2 Ml Inj) 50 mcg IV Q10MIN PRN PRN Reason: ANALGESIA Hydrophilic Ointment (Lip Therapy Vaseline) 1 applic TP Q2HR PRN PRN Reason: Dry Lips Fentanyl Citrate (Fentanyl Drip Premix) 2,000 mcg in 100 mls @ 4.2 mls/hr IV TITR MUSTAPHA; Protocol Last Titration: 10/02/20 03:00 Dose: 4 mcg/kg/hr, 16.8 mls/hr Documented by: Propofol (Diprivan 10 Mg/Ml) 1,000 mg in 100 mls @ 2.52 mls/hr IV TITR MUSTAPHA; Protocol Azithromycin (Zithromax/Ns) 500 mg in 250 mls @ 250 mls/hr IV Q24H MUSTAPHA Last Admin: 10/02/20 04:38 Dose: 250 mls/hr Documented by: Sodium Chloride (Nacl 0.9% 1000 Ml) 1,000 mls @ 125 mls/hr IV DIRECT MUSTAPHA Ceftriaxone Sodium (Rocephin/Ns 2 Gm/100 Ml) 2 gm in 100 mls @ 200 mls/hr IV Q24H MUSTAPHA; Protocol Azithromycin (Zithromax/Ns) 500 mg in 250 mls @ 250 mls/hr IV Q24H MUSTAPHA; Protocol Magnesium Hydroxide (Magnesium Hydroxide (Mom) Oral Liqd Udc) 30 ml PO Q4H PRN PRN Reason: Constipation Metoclopramide HCl (Metoclopramide 10 Mg Tab) 10 mg PO Q6H PRN PRN Reason: Nausea And Vomiting Morphine Sulfate (Morphine 2 Mg/1 Ml Inj) 2 mg IV Q4H PRN PRN Reason: Pain, Moderate (4-6) Morphine Sulfate (Morphine 4 Mg/1 Ml Inj) 4 mg IV Q4H PRN PRN Reason: Pain , Severe (7-10) Multi-Ingred Cream/Lotion/Oil/Oint (Mineral Oil/Petrolatum, White Ophth Oint 3.5 Gm) 1 applic OU Q4HR PRN PRN Reason: Dry Eye(s) Ondansetron HCl (Ondansetron 4 Mg/2 Ml Inj) 4 mg IV Q8H PRN PRN Reason: Nausea And Vomiting Promethazine HCl (Promethazine 25 Mg Rect Supp) 25 mg NH Q6H PRN PRN Reason: Nausea And Vomiting Sodium Chloride (Sodium Chloride 0.9% 10 Ml Flush Syringe) 10 ml IV BID MUSTAPHA Sodium Chloride (Sodium Chloride 0.9% 10 Ml Flush Syringe) 10 ml IV PRN PRN PRN Reason: LINE FLUSH Review of Systems ROS unobtainable: due to endotracheal tube Exam - Constitutional Vitals: Temp Pulse Resp BP Pulse Ox 98.4 F 75 20 117/67 98 10/02/20 01:41 10/02/20 05:01 10/02/20 05:01 10/02/20 05:01 10/02/20 05:01 General appearance: Present: other (Intubated and sedated) - EENT Eyes: Present: PERRL, EOM intact. Absent: scleral icterus ENT: hearing intact, clear oral mucosa, dentition normal - Neck Neck: Present: supple, normal ROM - Respiratory Respiratory effort: other (Currently intubated on the vent) Respiratory: bilateral: diminished - Cardiovascular Rhythm: regular Heart Sounds: Present: S1 & S2. Absent: gallop, systolic murmur, diastolic murmur, rub, click - Extremities Extremities: no ischemia, pulses intact, pulses symmetrical, No edema, normal temperature, normal color, Full ROM Peripheral Pulses: within normal limits - Abdominal General gastrointestinal: Present: soft, non-tender, non-distended, normal bowel sounds. Absent: mass - Musculoskeletal Musculoskeletal: strength equal bilaterally - Psychiatric Psychiatric: cooperative - Neurologic Neurologic: no focal deficits HEART Score - HEART Score Troponin: Troponin T 0.036 ng/mL (0.00-0.029) H 10/02/20 01:01 Results - Labs CBC & Chem 7: 10/02/20 01:01 10/02/20 01:01 Labs: Abnormal lab results 10/02/20 10/02/20 10/02/20 Range/Units 01:01 01:01 01:01 RBC 5.04 H (3.65-5.03) M/mm3 MCV 81 L (84-94) fl MCH 27 L (28-32) pg Seg Neuts % (Manual) 85.0 H (40.0-70.0) % Lymphocytes % (Manual) 1.0 L (13.4-35.0) % Monocytes % (Manual) 11.0 H (0.0-7.3) % Nucleated RBC % 1.0 H (0.0-0.9) % Seg Neutrophils # Man 9.4 H (1.8-7.7) K/mm3 Lymphocytes # (Manual) 0.1 L (1.2-5.4) K/mm3 Monocytes # (Manual) 1.2 H (0.0-0.8) K/mm3 PT 15.3 H (12.2-14.9) Sec. INR 1.16 H (0.87-1.13) Thrombin Time 23.2 H (15.1-19.6) Sec. POC ABG pO2 (83-108) mmHg ABG Oxyhemoglobin (94-98) ABG Sodium (136.0-145.0) mmol/L ABG Chloride (98-107) mmol/L ABG Glucose (65-95) mg/dL Sodium 133 L (137-145) mmol/L Chloride 85.1 L (98-107) mmol/L BUN 66 H (9-20) mg/dL Creatinine 5.6 H (0.8-1.3) mg/dL Glucose 292 H (75-100) mg/dL AST 173 H (5-40) units/L ALT 139 H (7-56) units/L Total Creatine Kinase 2544 H (55-170) units/L CK-MB (CK-2) 14.8 H (0.0-4.0) ng/mL Troponin T 0.036 H (0.00-0.029) ng/mL Albumin 3.3 L (3.9-5) g/dL Triglycerides 427 H (2-149) mg/dL HDL Cholesterol 31 L (40-59) mg/dL Arterial Blood Glucose (65-95) mg/dL Urine WBC (Auto) (0.0-6.0) /HPF 10/02/20 10/02/20 Range/Units 02:59 03:51 RBC (3.65-5.03) M/mm3 MCV (84-94) fl MCH (28-32) pg Seg Neuts % (Manual) (40.0-70.0) % Lymphocytes % (Manual) (13.4-35.0) % Monocytes % (Manual) (0.0-7.3) % Nucleated RBC % (0.0-0.9) % Seg Neutrophils # Man (1.8-7.7) K/mm3 Lymphocytes # (Manual) (1.2-5.4) K/mm3 Monocytes # (Manual) (0.0-0.8) K/mm3 PT (12.2-14.9) Sec. INR (0.87-1.13) Thrombin Time (15.1-19.6) Sec. POC ABG pO2 55.2 L (83-108) mmHg ABG Oxyhemoglobin 85.4 L (94-98) ABG Sodium 132.0 L (136.0-145.0) mmol/L ABG Chloride 89.0 L (98-107) mmol/L ABG Glucose 372 H (65-95) mg/dL Sodium (137-145) mmol/L Chloride (98-107) mmol/L BUN (9-20) mg/dL Creatinine (0.8-1.3) mg/dL Glucose (75-100) mg/dL AST (5-40) units/L ALT (7-56) units/L Total Creatine Kinase (55-170) units/L CK-MB (CK-2) (0.0-4.0) ng/mL Troponin T (0.00-0.029) ng/mL Albumin (3.9-5) g/dL Triglycerides (2-149) mg/dL HDL Cholesterol (40-59) mg/dL Arterial Blood Glucose 372 H (65-95) mg/dL Urine WBC (Auto) 8.0 H (0.0-6.0) /HPF Assessment and Plan - Patient Problems (1) Respiratory failure Current Visit: Yes Status: Acute Qualifiers: Chronicity: acute Respiratory failure complication: hypoxia Qualified Code(s): J96.01 - Acute respiratory failure with hypoxia Plan to address problem: Possibly secondary to the underlying pneumonia. Patient has been intubated and sedated. Consult placed to cell changer for further evaluation and recommendations. (2) Acute encephalopathy Current Visit: Yes Status: Acute Plan to address problem: Etiology unclear. Possibly secondary to underlying pneumonia and or possible CVA. (3) Acute renal failure Current Visit: Yes Status: Acute Qualifiers: Acute renal failure type: unspecified Qualified Code(s): N17.9 - Acute kidney failure, unspecified Plan to address problem: Patient placed on IV fluid normal saline. Will monitor BUN and creatinine await further recommendations from nephrology. (4) COVID-19 Current Visit: Yes Status: Acute Plan to address problem: Patient has been placed on isolation precautions. Patient started on IV steroid. Consult placed to infectious disease for further recommendations. (5) Elevated CK Current Visit: Yes Status: Acute Plan to address problem: Patient placed on IV fluid. We will monitor CK levels. Will await further evaluation and recommendations from nephrology. (6) Pneumonia Current Visit: Yes Status: Acute Qualifiers: Pneumonia type: due to unspecified organism Laterality: bilateral Lung location: unspecified part of lung Qualified Code(s): J18.9 - Pneumonia, unspecified organism Plan to address problem: Possibly secondary to COVID-19. Patient commenced on empiric IV antibiotics and IV steroid. We await evaluation by infectious disease. (7) DVT prophylaxis Current Visit: Yes Status: Acute Plan to address problem: Patient placed on subcutaneous heparin. (8) Full code status Current Visit: Yes Status: Acute Plan to address problem: Patient is full code.
[2020-10-02] MEDS ORDERED: ROCURONIUM 50 MG/5 ML INJ IV ONE (06:32)
[2020-10-02] MEDS ORDERED: ETOMIDATE 20 MG/10 ML INJ IV ONE (06:32)
[2020-10-02] MEDS ORDERED: MIDAZOLAM 5 MG/5 ML INJ MDV IV ONE (06:32)
[2020-10-02] MEDS: HEPARIN 5,000 UNIT/1 ML VIAL SUB-Q SCH ×3 (06:44→21:53)
[2020-10-02] MEDS ORDERED: DEXTROSE 50% IN WATER (25GM) 50 ML SYRINGE IV PRN (06:44)
[2020-10-02] MEDS ORDERED: INSULIN LISPRO 100 UNIT/ML SUB-Q SCH (07:30)
--- NOTE | 2020-10-02 08:03 | Gastroenterology Consultation ---
History of Present Illness - Reason for Consult Consult date: 10/02/20 elevated LFT Requesting physician: MELLISA SANDOVAL - History of Present Illness Patient intubated unable to respond so history obtained from chart Patient is a 50-year-old male who presents emergency room for altered mental status. Patient family states that the patient was sitting in the recliner at 8 PM on 09/30/2020 and when the family member returned home patient was in the same position but had vomited on himself. Patient was found to be unresponsive by the family and the family called EMS. EMS initiated a stroke alert due to the patient's mental status and minimal responsiveness. Patient has a history of diabetes hypertension. Patient was also diagnosed with COVID-19 1 week ago. Obtained/updated/reviewed patient's current medications Past History Past Medical History: diabetes, hypertension Past Surgical History: No surgical history Social history: no significant social history Family history: no significant family history Medications and Allergies Allergies Allergy/AdvReac Type Severity Reaction Status Date / Time No Known Allergies Allergy Verified 10/02/20 01:44 Active Meds: Active Medications Acetaminophen (Acetaminophen 325 Mg Tab) 650 mg PO Q4H PRN PRN Reason: Pain, Mild (1-3) Acetaminophen (Acetaminophen 325 Mg Tab) 650 mg PO Q6H PRN PRN Reason: Pain MILD(1-3)/Fever >100.5/CLIFTON Bisacodyl (Bisacodyl 10 Mg Rect Supp) [address] QDAY PRN PRN Reason: Constipation Dexamethasone (Dexamethasone 4 Mg/Ml Vial) 6 mg IV Q24H [facility] Dextrose (Dextrose 50% In Water (25gm) 50 Ml Syringe) 50 ml IV Q30MIN PRN; Protocol PRN Reason: Hypoglycemia Fentanyl (Fentanyl 100 Mcg/2 Ml Inj) 50 mcg IV Q10MIN PRN PRN Reason: ANALGESIA Heparin Sodium (Porcine) (Heparin 5,000 Unit/1 Ml Vial) 5,000 unit SUB-Q Q8HR [facility] Last Admin: 10/02/20 06:44 Dose: 5,000 unit Documented by: Hydrophilic Ointment (Lip Therapy Vaseline) 1 applic TP Q2HR PRN PRN Reason: Dry Lips Fentanyl Citrate (Fentanyl Drip Premix) 2,000 mcg in 100 mls @ 4.2 mls/hr IV TITR [facility]; Protocol Last Admin: 10/02/20 05:40 Dose: 4 mcg/kg/hr, 16.8 mls/hr Documented by: Propofol (Diprivan 10 Mg/Ml) 1,000 mg in 100 mls @ 2.52 mls/hr IV TITR [facility]; Protocol Sodium Chloride (Nacl 0.9% 1000 Ml) 1,000 mls @ 125 mls/hr IV DIRECT [facility] Ceftriaxone Sodium (Rocephin/Ns 2 Gm/100 Ml) 2 gm in 100 mls @ 200 mls/hr IV Q24H [facility]; Protocol Azithromycin (Zithromax/Ns) 500 mg in 250 mls @ 250 mls/hr IV Q24H [facility]; Protoco l Insulin Human Lispro (Insulin Lispro 100 Unit/Ml) 0 unit SUB-Q ACHS [facility]; Protocol Magnesium Hydroxide (Magnesium Hydroxide (Mom) Oral Liqd Udc) 30 ml PO Q4H PRN PRN Reason: Constipation Metoclopramide HCl (Metoclopramide 10 Mg Tab) 5 mg PO Q6H PRN PRN Reason: Nausea And Vomiting Morphine Sulfate (Morphine 2 Mg/1 Ml Inj) 2 mg IV Q4H PRN PRN Reason: Pain, Moderate (4-6) Morphine Sulfate (Morphine 4 Mg/1 Ml Inj) 4 mg IV Q4H PRN PRN Reason: Pain , Severe (7-10) Multi-Ingred Cream/Lotion/Oil/Oint (Mineral Oil/Petrolatum, White Ophth Oint 3.5 Gm) 1 applic OU Q4HR PRN PRN Reason: Dry Eye(s) Ondansetron HCl (Ondansetron 4 Mg/2 Ml Inj) 4 mg IV Q8H PRN PRN Reason: Nausea And Vomiting Promethazine HCl (Promethazine 25 Mg Rect Supp) [address] Q6H PRN PRN Reason: Nausea And Vomiting Sodium Chloride (Sodium Chloride 0.9% 10 Ml Flush Syringe) 10 ml IV BID [facility] Sodium Chloride (Sodium Chloride 0.9% 10 Ml Flush Syringe) 10 ml IV PRN PRN PRN Reason: LINE FLUSH Review of Systems - Review of Systems ROS unobtainable: due to mental status Exam - Constitutional Vital Signs: Temp Pulse Resp BP Pulse Ox 98.4 F 66 20 114/64 98 10/02/20 01:41 10/02/20 06:31 10/02/20 06:31 08/05/21 06:31 10/02/20 06:31 General appearance: other (Intubated) - EENT Eyes: other (No scleral icterus) - Neck Neck: other - Respiratory Respiratory effort: other (Patient intubated ) - Cardiovascular Rhythm: regular - Gastrointestinal General gastrointestinal: Present: soft, normal bowel sounds - Integumentary Integumentary: Present: dry - Neurologic Neurological: other (Sedated unresponsive) - Psychiatric Psychiatric: other (Sedated unresponsive) - Labs CBC & Chem 7: 10/02/20 01:01 10/02/20 01:01 Lab Results: Laboratory Results - last 24 hr 10/02/20 10/02/20 10/02/20 01:01 01:01 01:01 WBC 11.0 RBC 5.04 H Hgb 13.7 Hct 41.0 MCV 81 L MCH 27 L MCHC 33 RDW 14.3 Plt Count 151 Add Manual Diff Complete Total Counted 100 Seg Neuts % (Manual) 85.0 H Band Neutrophils % 3.0 Lymphocytes % (Manual) 1.0 L Monocytes % (Manual) 11.0 H Nucleated RBC % 1.0 H Seg Neutrophils # Man 9.4 H Band Neutrophils # 0.3 Lymphocytes # (Manual) 0.1 L Abs React Lymphs (Man) 0.0 Monocytes # (Manual) 1.2 H Eosinophils # (Manual) 0.0 Basophils # (Manual) 0.0 Metamyelocytes # 0.0 Myelocytes # 0.0 Promyelocytes # 0.0 Blast Cells # 0.0 WBC Morphology Not Reportable Hypersegmented Neuts Not Reportable Hyposegmented Neuts Not Reportable Hypogranular Neuts Not Reportable Smudge Cells Not Reportable Toxic Granulation Not Reportable Toxic Vacuolation Not Reportable Dohle Bodies Not Reportable Pelger-Huet Anomaly Not Reportable Yohan Rods Not Reportable Platelet Estimate Consistent w auto Clumped Platelets Not Reportable Plt Clumps, EDTA Not Reportable Large Platelets Few Giant Platelets Not Reportable Platelet Satelliting Not Reportable Plt Morphology Comment Not Reportable RBC Morphology Not Reportable Dimorphic RBCs Not Reportable Polychromasia Not Reportable Hypochromasia Not Reportable Poikilocytosis Not Reportable Anisocytosis 1+ Microcytosis Not Reportable Macrocytosis Not Reportable Spherocytes Not Reportable Pappenheimer Bodies Not Reportable Sickle Cells Not Reportable Target Cells Not Reportable Tear Drop Cells Not Reportable Ovalocytes Not Reportable Helmet Cells Not Reportable De Guzman-Snead Bodies Not Reportable [place] Rings Not Reportable Obdulia Cells Not Reportable Bite Cells Not Reportable Crenated Cell Not Reportable Elliptocytes Not Reportable Acanthocytes (Spur) Not Reportable Rouleaux Not Reportable Hemoglobin C Crystals Not Reportable Schistocytes Not Reportable Malaria parasites Not Reportable Shekhar Bodies Not Reportable Hem Pathologist Commnt No PT 15.3 H INR 1.16 H APTT 30.9 Thrombin Time 23.2 H ABG pH POC ABG pCO2 POC ABG pO2 POC ABG HCO3 ABG O2 Saturation POC ABG Base Excess ABG Hemoglobin ABG Oxyhemoglobin ABG Methemoglobin ABG Sodium ABG Potassium ABG Chloride ABG Glucose Carboxyhemoglobin FiO2 % Sodium 133 L Potassium 4.3 Chloride 85.1 L Carbon Dioxide 28 Anion Gap 24 BUN 66 H Creatinine 5.6 H Estimated GFR 13 BUN/Creatinine Ratio 12 Glucose 292 H Calcium 9.4 Total Bilirubin 0.80 AST 173 H ALT 139 H Alkaline Phosphatase 69 Total Creatine Kinase 2544 H CK-MB (CK-2) 14.8 H CK-MB (CK-2) Rel Index 0.5 Troponin T 0.036 H Total Protein 7.8 Albumin 3.3 L Albumin/Globulin Ratio 0.7 Triglycerides 427 H Cholesterol 165 LDL Cholesterol Direct TNR HDL Cholesterol 31 L Cholesterol/HDL Ratio 5.32 Arterial Blood Glucose Urine Color Urine Turbidity Urine pH Ur Specific [place] Urine Protein Urine Glucose (UA) Urine Ketones Urine Blood Urine Nitrite Urine Bilirubin Urine Urobilinogen Ur Leukocyte Esterase Urine WBC (Auto) Urine RBC (Auto) U Epithel Cells (Auto) Amorphous Crystals Urine Mucus Urine Opiates Screen Urine Methadone Screen Ur Barbiturates Screen Ur Phencyclidine Scrn Ur Amphetamines Screen U Benzodiazepines Scrn Urine Cocaine Screen U Marijuana (THC) Screen Drugs of Abuse Note Plasma/Serum Alcohol 10/02/20 10/02/20 10/02/20 01:01 02:59 02:59 WBC RBC Hgb Hct MCV MCH MCHC RDW Plt Count Add Manual Diff Total Counted Seg Neuts % (Manual) Band Neutrophils % Lymphocytes % (Manual) Monocytes % (Manual) Nucleated RBC % Seg Neutrophils # Man Band Neutrophils # Lymphocytes # (Manual) Abs React Lymphs (Man) Monocytes # (Manual) Eosinophils # (Manual) Basophils # (Manual) Metamyelocytes # Myelocytes # Promyelocytes # Blast Cells # WBC Morphology Hypersegmented Neuts Hyposegmented Neuts Hypogranular Neuts Smudge Cells Toxic Granulation Toxic Vacuolation Dohle Bodies Pelger-Huet Anomaly Yohan Rods Platelet Estimate Clumped Platelets Plt Clumps, EDTA Large Platelets Giant Platelets Platelet Satelliting Plt Morphology Comment RBC Morphology Dimorphic RBCs Polychromasia Hypochromasia Poikilocytosis Anisocytosis Microcytosis Macrocytosis Spherocytes Pappenheimer Bodies Sickle Cells Target Cells Tear Drop Cells Ovalocytes Helmet Cells De Guzman-Snead Bodies [place] Rings [place] Cells Bite Cells Crenated Cell Elliptocytes Acanthocytes (Spur) Rouleaux Hemoglobin C Crystals Schistocytes Malaria parasites Shekhar Bodies Hem Pathologist Commnt PT INR APTT Thrombin Time ABG pH POC ABG pCO2 POC ABG pO2 POC ABG HCO3 ABG O2 Saturation POC ABG Base Excess ABG Hemoglobin ABG Oxyhemoglobin ABG Methemoglobin ABG Sodium ABG Potassium ABG Chloride ABG Glucose Carboxyhemoglobin FiO2 % Sodium Potassium Chloride Carbon Dioxide Anion Gap BUN Creatinine Estimated GFR BUN/Creatinine Ratio Glucose Calcium Total Bilirubin AST ALT Alkaline Phosphatase Total Creatine Kinase CK-MB (CK-2) CK-MB (CK-2) Rel Index Troponin T Total Protein Albumin Albumin/Globulin Ratio Triglycerides Cholesterol LDL Cholesterol Direct HDL Cholesterol Cholesterol/HDL Ratio Arterial Blood Glucose Urine Color Alison Urine Turbidity Cloudy Urine pH 5.0 Ur Specific [place] 1.025 Urine Protein >500 Urine Glucose (UA) 50 Urine Ketones Neg Urine Blood Lg Urine Nitrite Neg Urine Bilirubin Neg Urine Urobilinogen < 2.0 Ur Leukocyte Esterase Neg Urine WBC (Auto) 8.0 H Urine RBC (Auto) 3.0 U Epithel Cells (Auto) 2.0 Amorphous Crystals Few Urine Mucus Few Urine Opiates Screen Negative Urine Methadone Screen Negative Ur Barbiturates Screen Negative Ur Phencyclidine Scrn Negative Ur Amphetamines Screen Negative U Benzodiazepines Scrn Negative Urine Cocaine Screen Negative U Marijuana (THC) Screen Negative Drugs of Abuse Note Disclamer Plasma/Serum Alcohol < 0.01 10/02/20 03:51 WBC RBC Hgb Hct MCV MCH MCHC RDW Plt Count Add Manual Diff Total Counted Seg Neuts % (Manual) Band Neutrophils % Lymphocytes % (Manual) Monocytes % (Manual) Nucleated RBC % Seg Neutrophils # Man Band Neutrophils # Lymphocytes # (Manual) Abs React Lymphs (Man) Monocytes # (Manual) Eosinophils # (Manual) Basophils # (Manual) Metamyelocytes # Myelocytes # Promyelocytes # Blast Cells # WBC Morphology Hypersegmented Neuts Hyposegmented Neuts Hypogranular Neuts Smudge Cells Toxic Granulation Toxic Vacuolation Dohle Bodies Pelger-Huet Anomaly Yohan Rods Platelet Estimate Clumped Platelets Plt Clumps, EDTA Large Platelets Giant Platelets Platelet Satelliting Plt Morphology Comment RBC Morphology Dimorphic RBCs Polychromasia Hypochromasia Poikilocytosis Anisocytosis Microcytosis Macrocytosis Spherocytes Pappenheimer Bodies Sickle Cells Target Cells Tear Drop Cells Ovalocytes Helmet Cells De Guzman-Snead Bodies [place] Rings Obdulia Cells Bite Cells Crenated Cell Elliptocytes Acanthocytes (Spur) Rouleaux Hemoglobin C Crystals Schistocytes Malaria parasites Shekhar Bodies Hem Pathologist Commnt PT INR APTT Thrombin Time ABG pH 7.393 POC ABG pCO2 46.2 POC ABG pO2 55.2 L POC ABG HCO3 27.5 ABG O2 Saturation 86.0 POC ABG Base Excess 1.9 ABG Hemoglobin 16.5 ABG Oxyhemoglobin 85.4 L ABG Methemoglobin 0 ABG Sodium 132.0 L ABG Potassium 3.8 ABG Chloride 89.0 L ABG Glucose 372 H Carboxyhemoglobin 0.7 FiO2 % 100.0 Sodium Potassium Chloride Carbon Dioxide Anion Gap BUN Creatinine Estimated GFR BUN/Creatinine Ratio Glucose Calcium Total Bilirubin AST ALT Alkaline Phosphatase Total Creatine Kinase CK-MB (CK-2) CK-MB (CK-2) Rel Index Troponin T Total Protein Albumin Albumin/Globulin Ratio Triglycerides Cholesterol LDL Cholesterol Direct HDL Cholesterol Cholesterol/HDL Ratio Arterial Blood Glucose 372 H Urine Color Urine Turbidity Urine pH Ur Specific [place] Urine Protein Urine Glucose (UA) Urine Ketones Urine Blood Urine Nitrite Urine Bilirubin Urine Urobilinogen Ur Leukocyte Esterase Urine WBC (Auto) Urine RBC (Auto) U Epithel Cells (Auto) Amorphous Crystals Urine Mucus Urine Opiates Screen Urine Methadone Screen Ur Barbiturates Screen Ur Phencyclidine Scrn Ur Amphetamines Screen U Benzodiazepines Scrn Urine Cocaine Screen U Marijuana (THC) Screen Drugs of Abuse Note Plasma/Serum Alcohol Assessment and Plan differential diagnosis would be ischemic hepatitis, infection related, med related, etc. Hepatic synthetic function intact Recommend checking acute hepatitis panel, recommend right upper quadrant ultrasound with Dopplers (I am ordering both), continue supportive care, avoid hepatotoxins trend LFTs and INR daily and we will continue to follow with you - Patient Problems (1) Transaminitis Current Visit: Yes Status: Acute
[2020-10-02] MEDS ORDERED: LORazepam 2 MG/ML VIAL ONE (09:45)
[2020-10-02] MEDS ORDERED: MIDAZOLAM 2 MG/2 ML INJ IV PRN (09:48)
--- NOTE | 2020-10-02 09:49 | Consultation ---
History of Present Illness - Reason for Consult Consult date: 10/02/20 acute renal failure, chronic renal failure - History of Present Illness The patient is a 50 YO male with history significant for Hypertension and Diabetes mellitus who was brought into [facility] ED 10/02 by EMS for altered mental s tatus and difficulty breathing. Patient was unable to provide any history and there was no family member at the bedside. He was said to have been found at home unresponsive and last well-known time was about 8 PM on 09/30/2020. Patient was diagnosed with COVID-19 about a week ago. A code stroke was called while in the emergency room. CT scan of the head shwoed R frontal white matter hypodensity. Chest x-ray revealed bilateral pneumonia. Labs significant for CK 2554, elevated liver enzymes, elevated troponin, BUN and creatinine of 66 and 5.6 respectively. Nephrology was consulted for further evaluation of OLIVIA. Past History Past Medical History: diabetes, hypertension Past Surgical History: No surgical history Social history: no significant social history Family history: no significant family history Medications and Allergies Allergies Allergy/AdvReac Type Severity Reaction Status Date / Time No Known Allergies Allergy Verified 10/02/20 01:44 Active Meds: Active Medications Acetaminophen (Acetaminophen 325 Mg Tab) 650 mg PO Q4H PRN PRN Reason: Pain, Mild (1-3) Acetaminophen (Acetaminophen 325 Mg Tab) 650 mg PO Q6H PRN PRN Reason: Pain MILD(1-3)/Fever >100.5/CL[place]ON Bisacodyl (Bisacodyl 10 Mg Rect Supp) 10 mg [place] QDAY PRN PRN Reason: Constipation Dexamethasone (Dexamethasone 4 Mg/Ml Vial) 6 mg IV Q24H [facility] Dextrose (Dextrose 50% In Water (25gm) 50 Ml Syringe) 50 ml IV Q30MIN PRN; Protocol PRN Reason: Hypoglycemia Fentanyl (Fentanyl 100 Mcg/2 Ml Inj) 50 mcg IV Q10MIN PRN PRN Reason: ANALGESIA Heparin Sodium (Porcine) (Heparin 5,000 Unit/1 Ml Vial) 5,000 unit SUB-Q Q8HR [facility] Last Admin: 10/02/20 06:44 Dose: 5,000 unit Documented by: Hydrophilic Ointment (Lip Therapy Vaseline) 1 applic TP Q2HR PRN PRN Reason: Dry Lips Fentanyl Citrate (Fentanyl Drip Premix) 2,000 mcg in 100 mls @ 4.2 mls/hr IV TITR [facility]; Protocol Last Admin: 10/02/20 05:40 Dose: 4 mcg/kg/hr, 16.8 mls/hr Documented by: Propofol (Diprivan 10 Mg/Ml) 1,000 mg in 100 mls @ 2.52 mls/hr IV TITR [facility]HA; Protocol Sodium Chloride (Nacl 0.9% 1000 Ml) 1,000 mls @ 125 mls/hr IV DIRECT [facility] Ceftriaxone Sodium (Rocephin/Ns 2 Gm/100 Ml) 2 gm in 100 mls @ 200 mls/hr IV Q24H [facility]; Protocol Azithromycin (Zithromax/Ns) 500 mg in 250 mls @ 250 mls/hr IV Q24H [facility]; Protocol Insulin Human Lispro (Insulin Lispro 100 Unit/Ml) 0 unit SUB-Q ACHS [facility]; Protocol Last Admin: 10/02/20 08:40 Dose: Not Given Documented by: Magnesium Hydroxide (Magnesium Hydroxide (Mom) Oral Liqd Udc) 30 ml PO Q4H PRN PRN Reason: Constipation Metoclopramide HCl (Metoclopramide 10 Mg Tab) 5 mg PO Q6H PRN PRN Reason: Nausea And Vomiting Morphine Sulfate (Morphine 2 Mg/1 Ml Inj) 2 mg IV Q4H PRN PRN Reason: Pain, Moderate (4-6) Morphine Sulfate (Morphine 4 Mg/1 Ml Inj) 4 mg IV Q4H PRN PRN Reason: Pain , Severe (7-10) Multi-Ingred Cream/Lotion/Oil/Oint (Mineral Oil/Petrolatum, White Ophth Oint 3.5 Gm) 1 applic OU Q4HR PRN PRN Reason: Dry Eye(s) Ondansetron HCl (Ondansetron 4 Mg/2 Ml Inj) 4 mg IV Q8H PRN PRN Reason: Nausea And Vomiting Promethazine HCl (Promethazine 25 Mg Rect Supp) 25 mg [place] Q6H PRN PRN Reason: Nausea And Vomiting Sodium Chloride (Sodium Chloride 0.9% 10 Ml Flush Syringe) 10 ml IV BID [facility] Sodium Chloride (Sodium Chloride 0.9% 10 Ml Flush Syringe) 10 ml IV PRN PRN PRN Reason: LINE FLUSH Review of Systems ROS unobtainable: due to mental status Exam - Vital Signs Vital signs: Vital Signs BP Pulse Ox 139/78 95 10/01/20 21:30 10/01/20 21:30 Results - Lab Results 10/02/20 01:01 10/02/20 01:01 Most recent lab results ABG pH 7.393 (7.320-7.450) 10/02/20 03:51 ABG O2 Saturation 86.0 (0-100) 10/02/20 03:51 Calcium 9.4 mg/dL (8.4-10.2) 10/02/20 01:01 Assessment and Plan 1. Acute kidney injury: OLIVIA in the setting of severe Covid infection. Received IV contrast 10/02. Renal US negative for hydro. Urine studies ordered. Monitor renal function. BUN and Creatinine level are very high. Avoid nephrotoxic agents. Meds dosage based on GFR. Monitor for DENTAL FRONT OFFICE ASSISTANT needs. 2. FEN: Monitor lytes and volume status. 3. Acute respiratory failure with hypoxemia: 2/2 Covid PNA. Currently on vent, wean as tolerated. 4. Covid PNA: Followed by ID. 5. Acute encephalopathy, POA: Multifactorial. R/O Seizure. CT brain remarkable for left frontal hypodensity. EEG pending. R/O CVA. 6. Rhabdomyolysis: Trend CK. 7. Elevated ALT & AST: Trend. 8. DM type 2: Monitor. Subjective: Patient was seen and examined at the bedside. Examination: General appearance: well-developed, appears stated age, intubated on vent HEENT: atraumatic, no icterus, pupils equal Neck: trachea midline Respiratory: MV sounds Heart: S1S2, regular, no murmur Abdomen: soft, bowel sounds heard, NT Integumentary: no obvious rash Neurologic: not responding Ext: edema : Blanchard catheter
[2020-10-02] MEDS ORDERED: LORazepam 2 MG/ML VIAL IV ONE (09:54)
[2020-10-02] MEDS ORDERED: MIDAZOLAM 100 MG in SODIUM CHLORIDE 0.9% 80 ML IV SCH (10:00)
--- NOTE | 2020-10-02 10:07 | Consultation ---
History of Present Illness Consult date: 10/02/20 Reason for Consult: found unresponsive at home 8, COVID-19 Positive History of present illness: Altered mental status Difficulty breathing History of present illness: 50-year-old male with known history of hypertension and diabetes mellitus brought into the emergency room by EMS for altered mental status and difficulty breathing. Patient was said to have been found at home unresponsive and last well-known time was about 8 PM on 09/30/2020. Patient's family indicates that patient was sitting in the recliner at about 8 PM on 09/30/2020 and was subsequently found in the same position today. Was said to have had some vomitus on his clothes and unresponsive. Patient was diagnosed with COVID-19 about a week ago. Most of the history was obtained from the ER staff. A code stroke was called while in the emergency room and CT scan of the head was subsequently ordered. tele Neurologist was also consulted . No further history was obtainable from patient as he is already intubated and sedated. Family members not available at this time. Work-up in the emergency room today, labs reveal total creatinine kinase of 2554, elevated liver enzymes, elevated troponin, BUN and creatinine of [address] scan of the head shows up to subcortical white matter hypodensity in the right frontal lobe. No acute bleed Chest x-ray reveals bilateral pneumonia pt. is currently intubated and sedated on fentanyl , versed and propofol initially No seizure is reported. Past History Past Medical History: diabetes, hypertension Past Surgical History: No surgical history Social history: no significant social history Family history: no significant family history Medications and Allergies Allergies Allergy/AdvReac Type Severity Reaction Status Date / Time No Known Allergies Allergy Verified 10/02/20 01:44 Active Meds: Active Medications Acetaminophen (Acetaminophen 325 Mg Tab) 650 mg PO Q4H PRN PRN Reason: Pain, Mild (1-3) Acetaminophen (Acetaminophen 325 Mg Tab) 650 mg PO Q6H PRN PRN Reason: Pain MILD(1-3)/Fever >100.5/CLIFTON Bisacodyl (Bisacodyl 10 Mg Rect Supp) 10 mg NH QDAY PRN PRN Reason: Constipation Fentanyl (Fentanyl 100 Mcg/2 Ml Inj) 50 mcg IV Q10MIN PRN PRN Reason: ANALGESIA Hydrophilic Ointment (Lip Therapy Vaseline) 1 applic TP Q2HR PRN PRN Reason: Dry Lips Fentanyl Citrate (Fentanyl Drip Premix) 2,000 mcg in 100 mls @ 4.2 mls/hr IV TITR MUSTAPHA; Protocol Last Titration: 10/02/20 03:00 Dose: 4 mcg/kg/hr, 16.8 mls/hr Documented by: Propofol (Diprivan 10 Mg/Ml) 1,000 mg in 100 mls @ 2.52 mls/hr IV TITR MUSTAPHA; Protocol Azithromycin (Zithromax/Ns) 500 mg in 250 mls @ 250 mls/hr IV Q24H MUSTAPHA Last Admin: 10/02/20 04:38 Dose: 250 mls/hr Documented by: Sodium Chloride (Nacl 0.9% 1000 Ml) 1,000 mls @ 125 mls/hr IV DIRECT MUSTAPHA Ceftriaxone Sodium (Rocephin/Ns 2 Gm/100 Ml) 2 gm in 100 mls @ 200 mls/hr IV Q24H MUSTAPHA; Protocol Azithromycin (Zithromax/Ns) 500 mg in 250 mls @ 250 mls/hr IV Q24H MUSTAPHA; Protocol Magnesium Hydroxide (Magnesium Hydroxide (Mom) Oral Liqd Udc) 30 ml PO Q4H PRN PRN Reason: Constipation Metoclopramide HCl (Metoclopramide 10 Mg Tab) 10 mg PO Q6H PRN PRN Reason: Nausea And Vomiting Morphine Sulfate (Morphine 2 Mg/1 Ml Inj) 2 mg IV Q4H PRN PRN Reason: Pain, Moderate (4-6) Morphine Sulfate (Morphine 4 Mg/1 Ml Inj) 4 mg IV Q4H PRN PRN Reason: Pain , Severe (7-10) Multi-Ingred Cream/Lotion/Oil/Oint (Mineral Oil/Petrolatum, White Ophth Oint 3.5 Gm) 1 applic OU Q4HR PRN PRN Reason: Dry Eye(s) Ondansetron HCl (Ondansetron 4 Mg/2 Ml Inj) 4 mg IV Q8H PRN PRN Reason: Nausea And Vomiting Promethazine HCl (Promethazine 25 Mg Rect Supp) 25 mg NH Q6H PRN PRN Reason: Nausea And Vomiting Sodium Chloride (Sodium Chloride 0.9% 10 Ml Flush Syringe) 10 ml IV BID MUSTAPHA Sodium Chloride (Sodium Chloride 0.9% 10 Ml Flush Syringe) 10 ml IV PRN PRN PRN Reason: LINE FLUSH Review of Systems ROS unobtainable: due to endotracheal tube Past History Past Medical History: diabetes, hypertension Past Surgical History: No surgical history Social history: no significant social history Family history: no significant family history Medications and Allergies Allergies Allergy/AdvReac Type Severity Reaction Status Date / Time No Known Allergies Allergy Verified 10/02/20 01:44 Active Meds: Active Medications Acetaminophen (Acetaminophen 325 Mg Tab) 650 mg PO Q6H PRN PRN Reason: Pain MILD(1-3)/Fever >100.5/CLIFTON Bisacodyl (Bisacodyl 10 Mg Rect Supp) 10 mg NH QDAY PRN PRN Reason: Constipation Dexamethasone (Dexamethasone 4 Mg/Ml Vial) 6 mg IV Q24H MUSTAPHA Stop: 10/12/20 04:01 Dextrose (Dextrose 50% In Water (25gm) 50 Ml Syringe) 50 ml IV Q30MIN PRN; Protocol PRN Reason: Hypoglycemia Famotidine (Famotidine 20 Mg/2 Ml Inj) 20 mg IV DAILY MUSTAPHA Fentanyl (Fentanyl 100 Mcg/2 Ml Inj) 50 mcg IV Q10MIN PRN PRN Reason: ANALGESIA Heparin Sodium (Porcine) (Heparin 5,000 Unit/1 Ml Vial) 5,000 unit SUB-Q Q8HR MUSTAPHA Last Admin: 10/02/20 06:44 Dose: 5,000 unit Documented by: Hydrophilic Ointment (Lip Therapy Vaseline) 1 applic TP Q2HR PRN PRN Reason: Dry Lips Fentanyl Citrate (Fentanyl Drip Premix) 2,000 mcg in 100 mls @ 4.2 mls/hr IV TITR MUSTAPHA; Protocol Last Admin: 10/02/20 05:40 Dose: 4 mcg/kg/hr, 16.8 mls/hr Documented by: Propofol (Diprivan 10 Mg/Ml) 1,000 mg in 100 mls @ 2.52 mls/hr IV TITR MUSTAPHA; Protocol Sodium Chloride (Nacl 0.9% 1000 Ml) 1,000 mls @ 125 mls/hr IV DIRECT MUSTAPHA Ceftriaxone Sodium (Rocephin/Ns 2 Gm/100 Ml) 2 gm in 100 mls @ 200 mls/hr IV Q24H MUSTAPHA; Protocol Azithromycin (Zithromax/Ns) 500 mg in 250 mls @ 250 mls/hr IV Q24H MUSTAPHA; Protocol Insulin Human Lispro (Insulin Lispro 100 Unit/Ml) 0 unit SUB-Q Q6HR MUSTAPHA; Protocol Magnesium Hydroxide (Magnesium Hydroxide (Mom) Oral Liqd Udc) 30 ml PO Q4H PRN PRN Reason: Constipation Metoclopramide HCl (Metoclopramide 10 Mg Tab) 5 mg PO Q6H PRN PRN Reason: Nausea And Vomiting Midazolam HCl (Midazolam 2 Mg/2 Ml Inj) 2 mg IV Q10MIN PRN PRN Reason: Sedation Multi-Ingred Cream/Lotion/Oil/Oint (Mineral Oil/Petrolatum, White Ophth Oint 3.5 Gm) 1 applic OU Q4HR PRN PRN Reason: Dry Eye(s) Ondansetron HCl (Ondansetron 4 Mg/2 Ml Inj) 4 mg IV Q8H PRN PRN Reason: Nausea And Vomiting Promethazine HCl (Promethazine 25 Mg Rect Supp) 25 mg NH Q6H PRN PRN Reason: Nausea And Vomiting Sodium Chloride (Sodium Chloride 0.9% 10 Ml Flush Syringe) 10 ml IV BID MUSTAPHA Sodium Chloride (Sodium Chloride 0.9% 10 Ml Flush Syringe) 10 ml IV PRN PRN PRN Reason: LINE FLUSH Review of Systems ROS unobtainable: due to endotracheal tube Physical Examination - Vital Signs Vital Signs: Vital Signs BP Pulse Ox 139/78 95 10/01/20 21:30 10/01/20 21:30 - Constitutional General appearance: comfortable, other (intubated and sedated) - EENT EENT: Present: PERRL, mucous membranes moist - Respiratory Respiratory: Present: chest non-tender, lungs clear, rhonchi - Cardiovascular Cardiovascular: Present: regular rate, normal S1, normal S2 Extremities: Present: no peripheral edema bilatateraly, no clubbing, cyanosis - Gastrointestinal Gastrointestinal: Present: normoactive bowel sounds - Integumentary Integumentary: Present: normal - Neurologic Cranial nerve examination: PERRL, other (pupils reactive , EOMI , corneal intact ,gag is intact ) Sensorimotor examination: other (no movment is noted to sternal rub.) Results - Laboratory Findings CBC and BMP: 10/02/20 01:01 10/02/20 01:01 Abnormal Lab Findings: Abnormal Labs 10/02/20 10/02/20 10/02/20 01:01 01:01 01:01 RBC 5.04 H MCV 81 L MCH 27 L Seg Neuts % (Manual) 85.0 H Lymphocytes % (Manual) 1.0 L Monocytes % (Manual) 11.0 H Nucleated RBC % 1.0 H Seg Neutrophils # Man 9.4 H Lymphocytes # (Manual) 0.1 L Monocytes # (Manual) 1.2 H PT 15.3 H INR 1.16 H Thrombin Time 23.2 H POC ABG pO2 ABG Oxyhemoglobin ABG Sodium ABG Chloride ABG Glucose Sodium 133 L Chloride 85.1 L BUN 66 H Creatinine 5.6 H Glucose 292 H AST 173 H ALT 139 H Total Creatine Kinase 2544 H CK-MB (CK-2) 14.8 H Troponin T 0.036 H Albumin 3.3 L Triglycerides 427 H HDL Cholesterol 31 L Arterial Blood Glucose Urine WBC (Auto) 10/02/20 10/02/20 02:59 03:51 RBC MCV MCH Seg Neuts % (Manual) Lymphocytes % (Manual) Monocytes % (Manual) Nucleated RBC % Seg Neutrophils # Man Lymphocytes # (Manual) Monocytes # (Manual) PT INR Thrombin Time POC ABG pO2 55.2 L ABG Oxyhemoglobin 85.4 L ABG Sodium 132.0 L ABG Chloride 89.0 L ABG Glucose 372 H Sodium Chloride BUN Creatinine Glucose AST ALT Total Creatine Kinase CK-MB (CK-2) Troponin T Albumin Triglycerides HDL Cholesterol Arterial Blood Glucose 372 H Urine WBC (Auto) 8.0 H Assessment and Plan Assessment and Plan - Patient Problems # Respiratory failure -Possibly secondary to the underlying pneumonia. -Patient has been intubated and sedated. # Acute encephalopathy -multifactorial -R/O Seizure - Ct brain is remarkable for left frontal hypodensity -EEG pending -Need MRI brain for now wo gd -R/O CVA # Elevated CK -Patient placed on IV fluid. -We will monitor CK levels. -CPK #2544 # Acute renal failure -Patient placed on IV fluid normal saline. -BUN/Cr#66/5.6 # COVID-19 -Patient has been placed on isolation precautions. -Patient started on IV steroid. # Pneumonia -Possibly secondary to COVID-19. -Patient commenced on empiric IV antibiotics and IV steroid. # HLP -elevated LDL and triglycerid -treat as indicated -elevated liver enzymes # DVT prophylaxis -Patient placed on subcutaneous heparin. #Full code status -Patient is full code. PLAN 1-Cut down sedation 2- EEG and brain MRI 3- Treat underlying infection 4- Correct electrolytes and renal function 5- Monitor CPK 6- R/O Seizure will follow
--- NOTE | 2020-10-02 11:14 | Electrocardiograph Report ---
[facility] Test Date: 2020-10-02 Test Time: 02:51:13 Pat Name: LUCERO SANDOVAL Department: Room: [place] [address] Gender: M Technical Systems Architect: ED NURSE : 1970 Requested By: ENZO SALINAS III Order Number: [id number] Reading MD: Nitin Eugene Measurements Intervals [place] Rate: 103 P: 3 MO: 164 QRS: -21 QRSD: 104 T: 1 QT: 359 QTc: 471 Interpretive Statements Sinus tachycardia With frequent PVCs and PACs No previous ECG available for comparison Electronically Signed On 10-02-2020 11:13:48 EDT by Nitin Eugene
[2020-10-02 12:30] LABS: C-Reactive Protein 13.6 mg/dL (0.00-1.30)
--- NOTE | 2020-10-02 13:10 | Consultation ---
History of Present Illness - Reason for Consult Consult date: 10/02/20 - History of Present Illness 50-year-old man past medical history of hypertension, diabetes brought to the hospital complaining of altered mental status and shortness of breath. He was found at home unresponsive with vomit on his clothes. Diagnosed total week prior to admission. He updated. Afebrile with a white count of 11. Poor renal function, elevated laboratory markers. Currently on ceftriaxone and Azithromycin with dexamethasone. Imaging personally reviewed: Chest x-ray: Bilateral pneumonia Past History Past Medical History: diabetes, hypertension Past Surgical History: No surgical history Social history: no significant social history Family history: no significant family history Medications and Allergies Allergies Allergy/AdvReac Type Severity Reaction Status Date / Time No Known Allergies Allergy Verified 10/02/20 01:44 Active Meds: Active Medications Acetaminophen (Acetaminophen 325 Mg Tab) 650 mg PO Q6H PRN PRN Reason: Pain MILD(1-3)/Fever >100.5/CLIFTON Bisacodyl (Bisacodyl 10 Mg Rect Supp) 10 mg IA QDAY PRN PRN Reason: Constipation Dexamethasone (Dexamethasone 4 Mg/Ml Vial) 6 mg IV Q24H MUSTAPHA Stop: 10/12/20 04:01 Dextrose (Dextrose 50% In Water (25gm) 50 Ml Syringe) 50 ml IV Q30MIN PRN; Protocol PRN Reason: Hypoglycemia Famotidine (Famotidine 20 Mg/2 Ml Inj) 20 mg IV DAILY MUSTAPHA Fentanyl (Fentanyl 100 Mcg/2 Ml Inj) 50 mcg IV Q10MIN PRN PRN Reason: ANALGESIA Heparin Sodium (Porcine) (Heparin 5,000 Unit/1 Ml Vial) 5,000 unit SUB-Q Q8HR MUSTAPHA Last Admin: 10/02/20 06:44 Dose: 5,000 unit Documented by: Hydrophilic Ointment (Lip Therapy Vaseline) 1 applic TP Q2HR PRN PRN Reason: Dry Lips Fentanyl Citrate (Fentanyl Drip Premix) 2,000 mcg in 100 mls @ 4.2 mls/hr IV TITR MUSTAPHA; Protocol Last Admin: 10/02/20 05:40 Dose: 4 mcg/kg/hr, 16.8 mls/hr Documented by: Propofol (Diprivan 10 Mg/Ml) 1,000 mg in 100 mls @ 2.52 mls/hr IV TITR MUSTAPHA; Protocol Sodium Chloride (Nacl 0.9% 1000 Ml) 1,000 mls @ 125 mls/hr IV DIRECT MUSTAPHA Ceftriaxone Sodium (Rocephin/Ns 2 Gm/100 Ml) 2 gm in 100 mls @ 200 mls/hr IV Q24H MUSTAPHA; Protocol Azithromycin (Zithromax/Ns) 500 mg in 250 mls @ 250 mls/hr IV Q24H MUSTAPHA; Protocol Insulin Human Lispro (Insulin Lispro 100 Unit/Ml) 0 unit SUB-Q Q6HR MUSTAPHA; Protoc ol Magnesium Hydroxide (Magnesium Hydroxide (Mom) Oral Liqd Udc) 30 ml PO Q4H PRN PRN Reason: Constipation Metoclopramide HCl (Metoclopramide 10 Mg Tab) 5 mg PO Q6H PRN PRN Reason: Nausea And Vomiting Midazolam HCl (Midazolam 2 Mg/2 Ml Inj) 2 mg IV Q10MIN PRN PRN Reason: Sedation Multi-Ingred Cream/Lotion/Oil/Oint (Mineral Oil/Petrolatum, White Ophth Oint 3.5 Gm) 1 applic OU Q4HR PRN PRN Reason: Dry Eye(s) Ondansetron HCl (Ondansetron 4 Mg/2 Ml Inj) 4 mg IV Q8H PRN PRN Reason: Nausea And Vomiting Promethazine HCl (Promethazine 25 Mg Rect Supp) 25 mg IA Q6H PRN PRN Reason: Nausea And Vomiting Sodium Chloride (Sodium Chloride 0.9% 10 Ml Flush Syringe) 10 ml IV BID MUSTAPHA Sodium Chloride (Sodium Chloride 0.9% 10 Ml Flush Syringe) 10 ml IV PRN PRN PRN Reason: LINE FLUSH Review of Systems ROS unobtainable: due to endotracheal tube Physical Examination - Physical Exam Narrative exam: Physical exam deferred to reduce risk of transmission of COVID-19. Please refer to primary team's note. - Constitutional Vitals: Vital Signs Temp Pulse Resp BP Pulse Ox 98.4 F 63 20 113/70 93 10/02/20 01:41 10/02/20 10:58 10/02/20 09:01 10/02/20 10:58 10/02/20 10:58 Temperature -Last 24 Hours Temperature 98.4 F Results - Labs CBC & Chem 7: 10/02/20 01:01 10/02/20 01:01 Labs: Abnormal lab results 10/02/20 10/02/2010/02/21 Range/Units 01:01 01:01 01:01 RBC 5.04 H (3.65-5.03) M/mm3 MCV 81 L (84-94) fl MCH 27 L (28-32) pg Seg Neuts % (Manual) 85.0 H (40.0-70.0) % Lymphocytes % (Manual) 1.0 L (13.4-35.0) % Monocytes % (Manual) 11.0 H (0.0-7.3) % Nucleated RBC % 1.0 H (0.0-0.9) % Seg Neutrophils # Man 9.4 H (1.8-7.7) K/mm3 Lymphocytes # (Manual) 0.1 L (1.2-5.4) K/mm3 Monocytes # (Manual) 1.2 H (0.0-0.8) K/mm3 PT 15.3 H (12.2-14.9) Sec. INR 1.16 H (0.87-1.13) Thrombin Time 23.2 H (15.1-19.6) Sec. D-Dimer (0-234) ng/mlDDU POC ABG pO2 (83-108) mmHg ABG Oxyhemoglobin (94-98) ABG Sodium (136.0-145.0) mmol/L ABG Chloride (98-107) mmol/L ABG Glucose (65-95) mg/dL Sodium 133 L (137-145) mmol/L Chloride 85.1 L (98-107) mmol/L BUN 66 H (9-20) mg/dL Creatinine 5.6 H (0.8-1.3) mg/dL Glucose 292 H (75-100) mg/dL AST 173 H (5-40) units/L ALT 139 H (7-56) units/L Lactate Dehydrogenase (91-180) units/L Total Creatine Kinase 2544 H (55-170) units/L CK-MB (CK-2) 14.8 H (0.0-4.0) ng/mL Troponin T 0.036 H (0.00-0.029) ng/mL C-Reactive Protein (0.00-1.30) mg/dL Albumin 3.3 L (3.9-5) g/dL Triglycerides 427 H (2-149) mg/dL HDL Cholesterol 31 L (40-59) mg/dL Arterial Blood Glucose (65-95) mg/dL Urine WBC (Auto) (0.0-6.0) /HPF 10/02/20 10/02/20 10/02/20 Range/Units 02:59 03:51 11:47 RBC (3.65-5.03) M/mm3 MCV (84-94) fl MCH (28-32) pg Seg Neuts % (Manual) (40.0-70.0) % Lymphocytes % (Manual) (13.4-35.0) % Monocytes % (Manual) (0.0-7.3) % Nucleated RBC % (0.0-0.9) % Seg Neutrophils # Man (1.8-7.7) K/mm3 Lymphocytes # (Manual) (1.2-5.4) K/mm3 Monocytes # (Manual) (0.0-0.8) K/mm3 PT (12.2-14.9) Sec. INR (0.87-1.13) Thrombin Time (15.1-19.6) Sec. D-Dimer 1023.48 H (0-234) ng/mlDDU POC ABG pO2 55.2 L (83-108) mmHg ABG Oxyhemoglobin 85.4 L (94-98) ABG Sodium 132.0 L (136.0-145.0) mmol/L ABG Chloride 89.0 L (98-107) mmol/L ABG Glucose 372 H (65-95) mg/dL Sodium (137-145) mmol/L Chloride (98-107) mmol/L BUN (9-20) mg/dL Creatinine (0.8-1.3) mg/dL Glucose (75-100) mg/dL AST (5-40) units/L ALT (7-56) units/L Lactate Dehydrogenase (91-180) units/L Total Creatine Kinase (55-170) units/L CK-MB (CK-2) (0.0-4.0) ng/mL Troponin T (0.00-0.029) ng/mL C-Reactive Protein (0.00-1.30) mg/dL Albumin (3.9-5) g/dL Triglycerides (2-149) mg/dL HDL Cholesterol (40-59) mg/dL Arterial Blood Glucose 372 H (65-95) mg/dL Urine WBC (Auto) 8.0 H (0.0-6.0) /HPF 10/02/20 Range/Units 11:47 RBC (3.65-5.03) M/mm3 MCV (84-94) fl MCH (28-32) pg Seg Neuts % (Manual) (40.0-70.0) % Lymphocytes % (Manual) (13.4-35.0) % Monocytes % (Manual) (0.0-7.3) % Nucleated RBC % (0.0-0.9) % Seg Neutrophils # Man (1.8-7.7) K/mm3 Lymphocytes # (Manual) (1.2-5.4) K/mm3 Monocytes # (Manual) (0.0-0.8) K/mm3 PT (12.2-14.9) Sec. INR (0.87-1.13) Thrombin Time (15.1-19.6) Sec. D-Dimer (0-234) ng/mlDDU POC ABG pO2 (83-108) mmHg ABG Oxyhemoglobin (94-98) ABG Sodium (136.0-145.0) mmol/L ABG Chloride (98-107) mmol/L ABG Glucose (65-95) mg/dL Sodium (137-145) mmol/L Chloride (98-107) mmol/L BUN (9-20) mg/dL Creatinine (0.8-1.3) mg/dL Glucose (75-100) mg/dL AST (5-40) units/L ALT (7-56) units/L Lactate Dehydrogenase 828 H (91-180) units/L Total Creatine Kinase (55-170) units/L CK-MB (CK-2) (0.0-4.0) ng/mL Troponin T (0.00-0.029) ng/mL C-Reactive Protein 13.60 H (0.00-1.30) mg/dL Albumin (3.9-5) g/dL Triglycerides (2-149) mg/dL HDL Cholesterol (40-59) mg/dL Arterial Blood Glucose (65-95) mg/dL Urine WBC (Auto) (0.0-6.0) /HPF Assessment and Plan Cultures: Blood culture no growth so far Covid PCR: Pending A/P: 50-year-old man past medical history of hypertension, diabetes admitted as COVID PUI #COVID PUI: with bilateral pneumonia. Pending PCR. Was also found to be covered in vomitus, as such concern for aspiration pneumonia. #Acute hypoxic respiratory failure: Currently vent. Secondary to pneumonia #Diabetes: tight glycemic control for best outcomes. #OLIVIA: Renally dose antibiotics Recs: -Continue steroids per pulmonary to complete 10 days. -Procalcitonin likely be falsely elevated in setting of renal abscess complete 5 days of ceftriaxone and azithromycin. -If Covid PCR positive recommend Actemra -Not a candidate for remdesivir due to renal failure. Thank you for the consult, we will continue to follow. Malgorzata Milligan MD [facility] ([facility] O: [phone] F: [phone]
[2020-10-02] MEDS: INSULIN LISPRO 100 UNIT/ML SUB-Q SCH ×3 (13:16→23:58)
[2020-10-02] MEDS: FAMOTIDINE 20 MG/2 ML INJ IV SCH (13:16)
--- NOTE | 2020-10-02 13:18 | Vascular Lab Report ---
DUPLEX DOPPLER ULTRASOUND CAROTID, BILATERAL INDICATION / CLINICAL INFORMATION: stroke. COMPARISON: None available. FINDINGS: RIGHT CAROTID: - PLAQUE ESTIMATE (%): < 50% - CCA velocity: 68 cm/sec. - ICA peak systolic velocity: 45 cm/sec. - ICA/CCA PSV Ratio: Less than 2 Right Vertebral Artery: Antegrade flow. LEFT CAROTID: - PLAQUE ESTIMATE (%): < 50% - CCA velocity: 95 cm/sec. - ICA peak systolic velocity: 46 cm/sec. - ICA/CCA PSV Ratio: Less than 2 Left Vertebral Artery: Antegrade flow. IMPRESSION: 1. Right Internal Carotid Artery: Less than 50% diameter stenosis. 2. Left Internal Carotid Artery: Less than 50% diameter stenosis. Velocity criteria are extrapolated from diameter data as defined by the Society of Radiologists in Ul trasound Consensus Conference, Radiology 2003; 229;340-346. NO STENOSIS (NORMAL) - Plaque = none; ICA PSV < 125 cm/sec; ICA/CCA PSV Ratio < 2.0 <50% STENOSIS - Plaque < 50%; ICA PSV < 125 cm/sec; ICA/CCA PSV Ratio < 2.0 50-69% STENOSIS - Plaque > 50%; ICA PSV = 125-230 cm/sec; ICA/CCA PSV Ratio = 2.0-4.0 >70% BUT <100% STENOSIS - Plaque > 50%; ICA PSV > 230 cm/sec; ICA/CCA PSV Ratio > 4.0 NEAR OCCLUSION - Plaque = visible lumen; ICA PSV = high/low/none; ICA/CCA PSV Ratio = variable TOTAL OCCLUSION - Plaque = no lumen; ICA PSV = none; ICA/CCA PSV Ratio = N/A Signer Name: Perez Merida MD Signed: 10/02/2020 1:14 PM Workstation Name: [id number]
[2020-10-02 13:29] LABS: Hepatitis B Surface Antigen Non-Reactive (Negative); Hepatitis C Virus Antibody Non-Reactive (NonReactive)
--- NOTE | 2020-10-02 15:01 | Event Note ---
Date: 10/02/20 Patient seen and examined, remains intubated, full ventilatory support. Continue current management and adjust as needed
--- NOTE | 2020-10-02 15:46 | Ultrasound Report ---
US abdomen complete with Doppler PROVIDED REASON FOR EXAM: elevated lft, please include doppler of liver TECHNIQUE: A limited examination of the liver, gallbladder, biliary tree, and pancreas was performed. In addition Doppler examination of flow within the portal vein, hepatic veins, and hepatic arteries was performed. COMPARISON: None available FINDINGS: Visualized abdominal aorta is within normal limits. Hepatic veins are patent with appropriate directi on of flow. Portal vein is patent, though demonstrates hepatofugal flow. Visualized portions of the pancreas are unremarkable. Findings in the kidneys are detailed separately . Liver is enlarged measuring 18.8 cm. Liver is enlarged with coarsened heterogeneous echotexture. Fo steven areas of hypoechogenicity in the liver, largest dimension measuring up to 3.1 cm. This could refl ect areas of focal fatty sparing or hepatic lesions. Spleen is mildly enlarged, measuring 13.8 cm. No focal lesion. Trace perihepatic ascites. IMPRESSION: 1. Hepatomegaly with coarsened heterogeneous echotexture of the liver, may reflect chronic liver dise ase/cirrhosis or fatty infiltration. Several indeterminate areas of hypoechogenicity in the liver, wh ich could reflect hepatic lesions or focal fatty sparing. Recommend evaluation with multiphasic CT. 2. Mild splenomegaly and trace perihepatic ascites. The main portal vein is patent with abnormal hepa tofugal flow. Findings may be seen with portal hypertension in the setting of cirrhosis. Signer Name: Baron Mitchell MD Signed: 10/02/2020 2:29 PM Workstation Name: [id number]
--- NOTE | 2020-10-02 15:46 | Ultrasound Report ---
. ULTRASOUND RENAL INDICATION / CLINICAL INFORMATION: OLIVIA. COMPARISON: None available. FINDINGS: RIGHT KIDNEY: Size (in cm): 12.1 - Echogenicity: Normal. - Cortical Thickness: Normal. - Hydronephrosis: None. - Cyst or mass: 1.2 cm cyst at the superior pole. - Stones: None seen. LEFT KIDNEY: Size (in cm): 11.7 - Echogenicity: Normal. - Cortical Thickness: Normal. - Hydronephrosis: None. - Cyst or mass: 7 mm exophytic cyst at the superior pole of the left kidney. - Stones: None seen. URINARY BLADDER: Blanchard catheter decompresses the bladder. FREE FLUID: None. ADDITIONAL FINDINGS: None. IMPRESSION: 1. No acute abnormality. No hydronephrosis. 2. Small bilateral renal cysts. 3. Blanchard catheter decompresses the bladder. Signer Name: Baron Mitchell MD Signed: 10/02/2020 2:18 PM Workstation Name: [id number]
--- NOTE | 2020-10-02 16:35 | Consultation ---
History of Present Illness Consult date: 10/02/20 Requesting physician: MELLISA SANDOVAL Reason for consult: pneumonia, other (COVID-19 infection) History of present illness: PULMONARY/CCM CONSULT NOTE (Full dictation # [id number]) Please see dictated notes for full details Past History Past Medical History: diabetes, hypertension Past Surgical History: No surgical history Social history: no significant social history Family history: no significant family history Medications and Allergies Allergies Allergy/AdvReac Type Severity Reaction Status Date / Time No Known Allergies Allergy Verified 10/02/20 01:44 Active Meds: Active Medications Acetaminophen (Acetaminophen 325 Mg Tab) 650 mg PO Q6H PRN PRN Reason: Pain MILD(1-3)/Fever >100.5/CLIFTON Bisacodyl (Bisacodyl 10 Mg Rect Supp) 10 mg TX QDAY PRN PRN Reason: Constipation Dexamethasone (Dexamethasone 4 Mg/Ml Vial) 6 mg IV Q24H [facility] Stop: 10/12/20 04:01 Dextrose (Dextrose 50% In Water (25gm) 50 Ml Syringe) 50 ml IV Q30MIN PRN; Protocol PRN Reason: Hypoglycemia Famotidine (Famotidine 20 Mg/2 Ml Inj) 20 mg IV DAILY [facility] Last Admin: 10/02/20 13:16 Dose: 20 mg Documented by: Fentanyl (Fentanyl 100 Mcg/2 Ml Inj) 50 mcg IV Q10MIN PRN PRN Reason: ANALGESIA Heparin Sodium (Porcine) (Heparin 5,000 Unit/1 Ml Vial) 5,000 unit SUB-Q Q8HR [facility] Last Admin: 10/02/20 06:44 Dose: 5,000 unit Documented by: Hydrophilic Ointment (Lip Therapy Vaseline) 1 applic TP Q2HR PRN PRN Reason: Dry Lips Fentanyl Citrate (Fentanyl Drip Premix) 2,000 mcg in 100 mls @ 4.2 mls/hr IV TITR [facility]; Protocol Last Admin: 10/02/20 13:17 Dose: 4 mcg/kg/hr, 16.8 mls/hr Documented by: Propofol (Diprivan 10 Mg/Ml) 1,000 mg in 100 mls @ 2.52 mls/hr IV TITR [facility]; Protocol Sodium Chloride (Nacl 0.9% 1000 Ml) 1,000 mls @ 125 mls/hr IV DIRECT [facility] Ceftriaxone Sodium (Rocephin/Ns 2 Gm/100 Ml) 2 gm in 100 mls @ 200 mls/hr IV Q24H [facility]; Protocol Stop: 10/07/20 03:59 Azithromycin (Zithromax/Ns) 500 mg in 250 mls @ 250 mls/hr IV Q24H [facility]; Protocol Stop: 10/07/20 04:59 Insulin Human Lispro (Insulin Lispro 100 Unit/Ml) 0 unit SUB-Q Q6HR [facility]; Protocol Last Admin: 10/02/20 13:16 Dose: Not Given Documented by: Magnesium Hydroxide (Magnesium Hydroxide (Mom) Oral Liqd Udc) 30 ml PO Q4H PRN PRN Reason: Constipation Metoclopramide HCl (Metoclopramide 10 Mg Tab) 5 mg PO Q6H PRN PRN Reason: Nausea And Vomiting Midazolam HCl (Midazolam 2 Mg/2 Ml Inj) 2 mg IV Q10MIN PRN PRN Reason: Sedation Multi-Ingred Cream/Lotion/Oil/Oint (Mineral Oil/Petrolatum, White Ophth Oint 3.5 Gm) 1 applic OU Q4HR PRN PRN Reason: Dry Eye(s) Ondansetron HCl (Ondansetron 4 Mg/2 Ml Inj) 4 mg IV Q8H PRN PRN Reason: Nausea And Vomiting Promethazine HCl (Promethazine 25 Mg Rect Supp) 25 mg [place] Q6H PRN PRN Reason: Nausea And Vomiting Sodium Chloride (Sodium Chloride 0.9% 10 Ml Flush Syringe) 10 ml IV BID [facility] Last Admin: 10/02/20 13:16 Dose: 10 ml Documented by: Sodium Chloride (Sodium Chloride 0.9% 10 Ml Flush Syringe) 10 ml IV PRN PRN PRN Reason: LINE FLUSH Physical Examination Vital signs: Vital Signs BP Pulse Ox 139/78 95 10/01/20 21:30 10/01/20 21:30 Results - Laboratory Findings CBC and BMP: 10/02/20 01:01 10/02/20 01:01 ABG ABG pH 7.393 (7.320-7.450) 10/02/20 03:51 POC ABG pCO2 46.2 mmHg (32.0-48.0) 10/02/20 03:51 POC ABG pO2 55.2 mmHg (83-108) L 10/02/20 03:51 POC ABG HCO3 27.5 10/02/20 03:51 ABG O2 Saturation 86.0 (0-100) 10/02/20 03:51 PT/INR, D-dimer PT 15.3 Sec. (12.2-14.9) H 10/02/20 01:01 INR 1.16 (0.87-1.13) H 10/02/20 01:01 D-Dimer 1023.48 ng/mlDDU (0-234) H 10/02/20 11:47 Abnormal lab findings: Abnormal Labs 10/02/20 10/02/20 10/02/20 01:01 01:01 01:01 RBC 5.04 H MCV 81 L MCH 27 L Seg Neuts % (Manual) 85.0 H Lymphocytes % (Manual) 1.0 L Monocytes % (Manual) 11.0 H Nucleated RBC % 1.0 H Seg Neutrophils # Man 9.4 H Lymphocytes # (Manual) 0.1 L Monocytes # (Manual) 1.2 H PT 15.3 H INR 1.16 H Thrombin Time 23.2 H D-Dimer POC ABG pO2 ABG Oxyhemoglobin ABG Sodium ABG Chloride ABG Glucose Sodium 133 L Chloride 85.1 L BUN 66 H Creatinine 5.6 H Glucose 292 H Ferritin AST 173 H ALT 139 H Lactate Dehydrogenase Total Creatine Kinase 2544 H CK-MB (CK-2) 14.8 H Troponin T 0.036 H C-Reactive Protein Albumin 3.3 L Triglycerides 427 H HDL Cholesterol 31 L Arterial Blood Glucose Urine WBC (Auto) Coronavirus (PCR) 10/02/20 10/02/20 10/02/20 02:59 03:51 11:47 RBC MCV MCH Seg Neuts % (Manual) Lymphocytes % (Manual) Monocytes % (Manual) Nucleated RBC % Seg Neutrophils # Man Lymphocytes # (Manual) Monocytes # (Manual) PT INR Thrombin Time D-Dimer POC ABG pO2 55.2 L ABG Oxyhemoglobin 85.4 L ABG Sodium 132.0 L ABG Chloride 89.0 L ABG Glucose 372 H Sodium Chloride BUN Creatinine Glucose Ferritin AST ALT Lactate Dehydrogenase Total Creatine Kinase 2548 H CK-MB (CK-2) Troponin T C-Reactive Protein Albumin Triglycerides HDL Cholesterol Arterial Blood Glucose 372 H Urine WBC (Auto) 8.0 H Coronavirus (PCR) 10/02/20 10/02/20 10/02/20 11:47 11:47 11:47 RBC MCV MCH Seg Neuts % (Manual) Lymphocytes % (Manual) Monocytes % (Manual) Nucleated RBC % Seg Neutrophils # Man Lymphocytes # (Manual) Monocytes # (Manual) PT INR Thrombin Time D-Dimer 1023.48 H POC ABG pO2 ABG Oxyhemoglobin ABG Sodium ABG Chloride ABG Glucose Sodium Chloride BUN Creatinine Glucose Ferritin 8643.0 H AST ALT Lactate Dehydrogenase 828 H Total Creatine Kinase CK-MB (CK-2) Troponin T C-Reactive Protein 13.60 H Albumin Triglycerides HDL Cholesterol Arterial Blood Glucose Urine WBC (Auto) Coronavirus (PCR) 10/02/20 Unknown RBC MCV MCH Seg Neuts % (Manual) Lymphocytes % (Manual) Monocytes % (Manual) Nucleated RBC % Seg Neutrophils # Man Lymphocytes # (Manual) Monocytes # (Manual) PT INR Thrombin Time D-Dimer POC ABG pO2 ABG Oxyhemoglobin ABG Sodium ABG Chloride ABG Glucose Sodium Chloride BUN Creatinine Glucose Ferritin AST ALT Lactate Dehydrogenase Total Creatine Kinase CK-MB (CK-2) Troponin T C-Reactive Protein Albumin Triglycerides HDL Cholesterol Arterial Blood Glucose Urine WBC (Auto) Coronavirus (PCR) Positive A
[2020-10-02] MEDS: SODIUM CHLORIDE 0.9% 1000 ML 1,000 ML IV SCH (18:58)
[2020-10-02] MEDS: SENNOSIDES/DOCUSATE SODIUM 8.6/50 MG TAB FEEDTUBE SCH (21:49)
[2020-10-03] MEDS: fentaNYL DRIP Premix 2,000 MCG/100 ML BAG IV SCH ×3 (00:54→18:20)
--- NOTE | 2020-10-03 02:04 | Consultation ---
DATE OF CONSULTATION: 10/02/2020 PULMONARY CRITICAL CARE CONSULTATION NOTE DATE OF CONSULTATION: 10/02/2020 CONSULTING PHYSICIAN: Dr. Reji Hernandez. REASON FOR CONSULTATION: Acute hypoxemic respiratory failure, on mechanical ventilatory support. COVID-19 infection. CHIEF COMPLAINT AND HISTORY OF PRESENT ILLNESS: As follows: The patient is a 50-year-old male with a past medical history significant for diabetes and hypertension, brought into the emergency room for altered mental status and decreased alertness as a stroke alert who was not responsive even to pain. His last known well time was the night before presentation. He apparently had a diagnosis of COVID-19 one week prior to coming to the hospital. He was evaluated in the emergency room, had a low GCS score, ultimately was intubated both for airway protection as well as for oxygenation. We are asked to assist with management. When I stopped by to see him, he was resting in bed. He was on a fentanyl drip at 4 mcg/kg per hour. No significant patient-ventilator dyssynchrony, but unable to give me much more of history. I do not have any history of vomiting or overt aspiration. Workup in the ER amongst other things showed an elevated CPK consistent with rhabdomyolysis state. He also had acute kidney injury likely. A CT of the head showed no acute bleed and chest x-rays revealed bilateral pneumonia. This really is as much of the history of presentation as I have. PAST MEDICAL HISTORY: Diabetes, hypertension. PAST SURGICAL HISTORY: Unknown. MEDICATIONS: He was on at the time I stopped by to see him, according to the medication administration record included the following: Tylenol 650 mg p.o. q. 6 hours p.r.n. mild pain or fevers, Zithromax 500 mg IV daily, Rocephin 2 grams IV daily, Decadron 6 mg IV daily, Pepcid 20 mg IV daily, fentanyl drip like I mentioned at 4 mcg/kg per hour, heparin 5000 units subQ q. 8 hours, insulin via sliding scale, Zofran 4 mg IV q. 8 hours p.r.n. nausea and vomiting. Propofol drip was ordered. ALLERGIES: No known drug allergies. DIET: Well-built gentleman, acute weight loss or gain history is unknown. FAMILY AND SOCIAL HISTORY: Lives in the community. Alcohol, tobacco, or illicit drug use or abuse and family history is otherwise unknown. REVIEW OF SYSTEMS: Unobtainable secondary to the patient's medical and mental condition. Since he has been here, no gross hematochezia or melena, no gross hematuria, no hematemesis, no bloody tracheal secretions, no witnessed seizures. Review of systems is otherwise unobtainable or as in the body of the history above. PHYSICAL EXAMINATION: VITAL SIGNS: On presentation, he was afebrile, temperature 98.4 degrees Fahrenheit, pulse was 104, respiratory rate was 20, blood pressure was 139/78, O2 sats were 92%, inspired oxygen concentration at that time was not recorded. When I stopped by to see him, O2 sats were 99% that was on the assist control mode of ventilation, tidal volume 500, rate of 20, PEEP of 10, on 100% FiO2 at that time. GENERAL: He is a well-built male, normocephalic, atraumatic, on the mechanical ventilator without significant patient-ventilator dyssynchrony. HEAD, EYES, EARS, NOSE, AND THROAT: Anicteric. No conjunctival erythema. Oropharynx was moist. ET tube was taped 23-24 cm at the lips. NECK: No gross jugular venous distention. No thyromegaly. He does have a large neck circumference. Grossly, there were no palpable lymph nodes in the supraclavicular or submandibular lymph node chains. LUNGS: Auscultation of both lung miguel was done. He had good bilateral air movement, scant rhonchi, no wheezing. HEART: Sounds 1 and 2 are heard. There were regular rate and rhythm at the time of my evaluation without overt rubs or murmurs. ABDOMEN: Soft, full, protuberant. Bowel sounds positive, nontender, no palpable hepatosplenomegaly. EXTREMITIES: Without overt digital clubbing or cyanosis. No pedal edema. Pedal pulses are 2+ bilaterally. NEUROLOGIC: Pupils were equal, round, about 3 mm, sluggishly reactive to light. Extraocular muscle movements cannot be assessed. He did have spontaneous withdrawal movements to his extremities on stimulation; otherwise, he was sedated. SKIN: Normal turgor in the areas I examined without overt cellulitis or rash. Please see the wound care nurses' notes for full description of his skin. PSYCHIATRIC: Mood and affect could not be assessed. He was sedated. LABORATORY DATA: From my review are as follows: White cell count 11,000, hemoglobin 13.7, hematocrit 41.0, platelet count was 141. 3% band neutrophils on the manual differential. D-dimer was elevated at 1023. INR 1.16. Arterial blood gas showed a pH of 7.39, pCO2 of 46, pO2 of 55 on the above-mentioned vent settings on 100% FiO2. Serum sodium was 133, potassium 4.3, chloride 85, bicarbonate 28, BUN 66, creatinine 5.6, glucose was 292. AST elevated at 173, ALT 139. CPK 2544. Troponin 0.036. CRP 13.6. LDL cholesterol, too numerous to count. Total cholesterol 165. Urinalysis showed large blood; however, 3 rbc's per high power field, negative for nitrites and leukocyte esterase. Urine drug screen was presumptive negative. Alcohol level was nondetectable. Coronavirus PCR positive. Hepatitis screen is negative. Two sets of blood cultures, no growth to date. Radiographic studies have been reviewed. A chest x-ray done at presentation essentially shows endotracheal tube tip appears to be at the level of the aortic knob, it is a rotated film. He does have perihilar infiltrates, borderline cardiomegaly, small lung volumes, bilateral infiltrates. A CT scan was done of the head. It was read as subtle subcortical white matter hypodensity in the right frontal lobe, no acute bleed. A CTA of the neck showed no evidence of significant stenosis involving cervical, carotid, or vertebral arteries. It mentions dense consolidation in the visualized left upper lung. A CTA of the brain, no large vessel occlusion. Renal ultrasound has also been done. ASSESSMENT: 1. Acute hypoxemic respiratory failure, on mechanical ventilatory support. 2. COVID-19 infection. 3. Bilateral pneumonia. 4. Acute kidney injury. 5. Acute toxic metabolic encephalopathy. 6. Rhabdomyolysis. 7. Elevated serum inflammatory markers to include the D-dimers as well as ferritin level. 8. Non-ST elevation myocardial infarction. 9. Oropharyngeal dysphagia. PLAN: We will keep him on full mechanical ventilatory support. Oxygen will be weaned to keep sats greater than or equal to about 92%. Aspiration precautions will be maintained. Ventilator-associated pneumonia bundle has been introduced. He will be kept in COVID-19 isolation to include airborne and contact isolation empirically. He is not a candidate for remdesivir. He is appropriately on systemic steroid therapy. Community-acquired pneumonia therapy is appropriate and will be continued for 5 days. We will trend his procalcitonin and CRP levels to help guide clinical decision making. Nephrology consultation has been placed and is appropriate. He may well end up needing dialysis, we will see how things go. Enteral nutrition will be the feeding modality of choice. He is appropriately on GI prophylaxis as well as DVT prophylaxis. We will be doing a DVT workup and follow VTE workup with first of all bilateral lower extremity Dopplers. Hold on the CT angio at this time as he is still unstable and his creatinine and renal function will not take it, but for now, we will continue DVT prophylaxis doses. Flu and pneumonia vaccination will be addressed per protocol. Thank you very much for the consult. We will follow along and make further recommendations as picture progresses/becomes clearer. He is critically ill on life-sustaining interventions including mechanical ventilatory support at high risk of from cardiopulmonary system decompensation. At this time, I have spent about 35-40 minutes of critical care time without overlap and excluding any procedural time that may be necessary. TID: [id number] RECEIPT: [id number] SMOOTH/JUSTICE
[2020-10-03] MEDS: SODIUM CHLORIDE 0.9% 1000 ML 1,000 ML IV SCH ×3 (02:13→22:44)
--- NOTE | 2020-10-03 02:16 | XRay Report ---
CHEST 1 VIEW 10/03/2020 2:00 AM INDICATION / CLINICAL INFORMATION: follow up respiratory failure. COMPARISON: 10/02/20 FINDINGS: SUPPORT DEVICES: Unchanged. HEART / MEDIASTINUM: Stable. LUNGS / PLEURA: Patchy bilateral pulmonary opacities are unchanged. No pneumothorax. ADDITIONAL FINDINGS: No significant additional findings. IMPRESSION: 1. No significant change. Signer Name: Aleida Arteaga MD Signed: 10/03/2020 2:11 AM Workstation Name: [id number]
[2020-10-03] MEDS: cefTRIAXone/NS 2 GM/100 ML 2 GM/100 ML BAG IV SCH (02:36)
[2020-10-03] MEDS: dexAMETHasone 4 MG/ML VIAL IV SCH (03:36)
[2020-10-03] MEDS: AZITHROMYCIN/NS 500 MG/250 ML 500 MG/250 ML BAG IV SCH (03:36)
[2020-10-03] MEDS: HEPARIN 5,000 UNIT/1 ML VIAL SUB-Q SCH ×3 (06:20→21:49)
[2020-10-03] MEDS: INSULIN LISPRO 100 UNIT/ML SUB-Q SCH ×4 (06:20→23:58)
[2020-10-03 06:23] LABS: Alanine Aminotransferase 88 units/L (7-56); Albumin 2.6 g/dL (3.9-5)
[2020-10-03 06:30] LABS: Bilirubin,Direct < 0.2 mg/dL (0-0.2)
[2020-10-03 07:14] LABS: Creatinine,Urine 156.1 mg/dL (0.1-20.0)
--- NOTE | 2020-10-03 08:37 | Gastroenterology Progress Note ---
Assessment and Plan LFT improving, consistent with combination of mild ischemic hepatitis and related to his covid infection Hepatic synthetic function intact continue supportive care, avoid hepatotoxins and liver enzymes should continue to gradually normalize GI will sign off please call us back if we can be of any further assistance - Patient Problems (1) Transaminitis Current Visit: Yes Status: Acute Subjective Date of service: 10/03/20 Principal diagnosis: elevated lft Interval history: pt remains intubated COVID positive Objective - Constitutional Vitals: Temp Pulse Resp BP Pulse Ox 97.7 F 60 20 124/81 97 10/02/20 22:00 10/03/20 08:01 10/03/20 08:01 10/03/20 08:01 10/03/20 08:01 General appearance: other (intubated) - Respiratory Respiratory effort: other (intubated) - Cardiovascular Rhythm: regular - Integumentary Integumentary: Present: dry - Labs CBC & Chem 7: 10/02/20 01:01 10/02/20 01:01 Labs: Laboratory Results - last 24 hr 10/02/20 10/02/20 10/02/20 01:01 11:47 11:47 D-Dimer 1023.48 H ABG pH POC ABG pCO2 POC ABG pO2 POC ABG HCO3 ABG O2 Saturation POC ABG Base Excess ABG Hemoglobin ABG Oxyhemoglobin ABG Methemoglobin ABG Sodium ABG Potassium ABG Chloride ABG Glucose Carboxyhemoglobin FiO2 % POC Glucose Ferritin Total Bilirubin Direct Bilirubin Indirect Bilirubin AST ALT Alkaline Phosphatase Lactate Dehydrogenase Total Creatine Kinase 2548 H C-Reactive Protein Total Protein Albumin Albumin/Globulin Ratio Arterial Blood Glucose Urine Creatinine Urine Sodium Coronavirus (PCR) Hepatitis A IgM Ab Non-reactive Hep Bs Antigen Non-reactive Hep B Core IgM Ab Non-reactive Hepatitis C Antibody Non-reactive 10/02/20 10/02/20 10/02/20 11:47 11:47 18:48 D-Dimer ABG pH POC ABG pCO2 POC ABG pO2 POC ABG HCO3 ABG O2 Saturation POC ABG Base Excess ABG Hemoglobin ABG Oxyhemoglobin ABG Methemoglobin ABG Sodium ABG Potassium ABG Chloride ABG Glucose Carboxyhemoglobin FiO2 % POC Glucose 441 H Ferritin 8643.0 H Total Bilirubin Direct Bilirubin Indirect Bilirubin AST ALT Alkaline Phosphatase Lactate Dehydrogenase 828 H Total Creatine Kinase C-Reactive Protein 13.60 H Total Protein Albumin Albumin/Globulin Ratio Arterial Blood Glucose Urine Creatinine Urine Sodium Coronavirus (PCR) Hepatitis A IgM Ab Hep Bs Antigen Hep B Core IgM Ab Hepatitis C Antibody 10/02/20 10/02/20 10/03/20 23:51 Unknown 05:22 D-Dimer ABG pH 7.410 POC ABG pCO2 40.6 POC ABG pO2 74.3 L POC ABG HCO3 25.2 ABG O2 Saturation 93.5 POC ABG Base Excess 0.5 ABG Hemoglobin 13.5 ABG Oxyhemoglobin 93.2 L ABG Methemoglobin 0 ABG Sodium 133.6 L ABG Potassium 4.1 ABG Chloride 92.0 L ABG Glucose 399 H Carboxyhemoglobin 0.3 L FiO2 % 100.0 POC Glucose 457 H Ferritin Total Bilirubin Direct Bilirubin Indirect Bilirubin AST ALT Alkaline Phosphatase Lactate Dehydrogenase Total Creatine Kinase C-Reactive Protein Total Protein Albumin Albumin/Globulin Ratio Arterial Blood Glucose 399 H Urine Creatinine Urine Sodium Coronavirus (PCR) Positive A Hepatitis A IgM Ab Hep Bs Antigen Hep B Core IgM Ab Hepatitis C Antibody 10/03/20 10/03/20 10/03/20 05:25 06:09 06:30 D-Dimer ABG pH POC ABG pCO2 POC ABG pO2 POC ABG HCO3 ABG O2 Saturation POC ABG Base Excess ABG Hemoglobin ABG Oxyhemoglobin ABG Methemoglobin ABG Sodium ABG Potassium ABG Chloride ABG Glucose Carboxyhemoglobin FiO2 % POC Glucose 360 H Ferritin Total Bilirubin 0.30 Direct Bilirubin < 0.2 Indirect Bilirubin 0.1 AST 71 H ALT 88 H Alkaline Phosphatase 60 Lactate Dehydrogenase Total Creatine Kinase 1597 H C-Reactive Protein Total Protein 6.7 Albumin 2.6 L Albumin/Globulin Ratio 0.6 Arterial Blood Glucose Urine Creatinine 156.1 H Urine Sodium 22 Coronavirus (PCR) Hepatitis A IgM Ab Hep Bs Antigen Hep B Core IgM Ab Hepatitis C Antibody
--- NOTE | 2020-10-03 08:47 | Progress Note ---
Assessment and Plan 1. Acute kidney injury: OLIVIA in the setting of severe Covid infection. Received IV contrast 10/02. FeNa low. Renal US negative for hydro. Monitor renal function. BUN and Creatinine level continue to increase. Avoid nephrotoxic agents. Meds dosage based on GFR. 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 2. FEN: Monitor lytes and volume status. 3. Acute respiratory failure with hypoxemia: 2/2 Covid PNA. Currently on vent, wean as tolerated. 4. Covid PNA: Followed by ID. 5. Acute encephalopathy, POA: Multifactorial. R/O Seizure. CT brain remarkable for left frontal hypodensity. EEG suggestive of encephalopathy. R/O CVA. 6. Rhabdomyolysis: Trend CK. 7. Elevated ALT & AST: Trend. 8. DM type 2: Monitor. Subjective: Patient was seen and examined at the bedside. Examination: General appearance: well-developed, appears stated age, intubated on vent HEENT: atraumatic, no icterus, pupils equal Neck: trachea midline Respiratory: MV sounds Heart: S1S2, regular, no murmur Abdomen: soft, bowel sounds heard, NT Integumentary: no obvious rash Neurologic: not responding Ext: edema : Blanchard catheter Subjective Date of service: 10/03/20 Principal diagnosis: elevated lft Objective - Vital Signs Vital signs: Vital Signs - 12hr 10/02/20 10/02/20 10/02/20 21:01 21:31 22:00 Temperature 97.7 F Pulse Rate 51 L 55 L Respiratory 20 20 Rate Blood Pressure 144/93 130/85 O2 Sat by Pulse 92 93 Oximetry 10/02/20 10/02/20 10/02/20 22:01 22:31 23:01 Temperature Pulse Rate 52 L 53 L 52 L Respiratory 20 20 20 Rate Blood Pressure 132/83 129/80 129/80 O2 Sat by Pulse 94 94 94 Oximetry 10/02/20 10/02/20 10/03/20 23:31 23:56 00:00 Temperature Pulse Rate 51 L 45 L Respiratory 20 Rate Blood Pressure 122/76 134/83 O2 Sat by Pulse 94 95 95 Oximetry 10/03/20 10/03/20 10/03/20 00:01 00:31 01:01 Temperature Pulse Rate 45 L 47 L 47 L Respiratory 20 20 20 Rate Blood Pressure 134/83 138/84 135/86 O2 Sat by Pulse 94 94 94 Oximetry 10/03/20 10/03/20 10/03/20 01:31 01:45 02:01 Temperature Pulse Rate 71 77 Respiratory 20 20 Rate Blood Pressure 176/103 141/88 O2 Sat by Pulse 96 95 96 Oximetry 10/03/20 10/03/20 10/03/20 02:31 03:01 03:31 Temperature Pulse Rate 73 68 63 Respiratory 20 20 20 Rate Blood Pressure 136/86 111/73 110/73 O2 Sat by Pulse 97 94 95 Oximetry 10/03/20 10/03/20 10/03/20 04:01 04:31 05:01 Temperature Pulse Rate 60 57 L 55 L Respiratory 20 20 20 Rate Blood Pressure 102/67 106/73 108/74 O2 Sat by Pulse 95 97 98 Oximetry 10/03/20 10/03/20 10/03/20 05:21 05:31 05:45 Temperature Pulse Rate 52 L 67 Respiratory 20 Rate Blood Pressure 106/74 158/94 O2 Sat by Pulse 98 96 95 Oximetry 10/03/20 10/03/20 10/03/20 06:01 06:31 07:01 Temperature Pulse Rate 85 78 68 Respiratory 19 20 20 Rate Blood Pressure 187/108 168/108 137/88 O2 Sat by Pulse 100 99 97 Oximetry 10/03/20 10/03/20 07:31 08:01 Temperature Pulse Rate 62 60 Respiratory 20 20 Rate Blood Pressure 126/77 124/81 O2 Sat by Pulse 97 97 Oximetry - Lab 10/02/20 01:01 10/03/20 05:25 Most recent lab results ABG pH 7.410 (7.320-7.450) 10/03/20 05:22 ABG O2 Saturation 93.5 (0-100) 10/03/20 05:22 Calcium 9.4 mg/dL (8.4-10.2) 10/02/20 01:01 Urine Creatinine 156.1 mg/dL (0.1-20.0) H 10/03/20 06:30 Urine Sodium 22 mmol/L 10/03/20 06:30 Medications & Allergies - Medications Allergies/Adverse Reactions: Allergies No Known Allergies Allergy (Verified 10/02/20 01:44) Active Medications: Generic Name Dose Route Start Last Admin Trade Name Freq PRN Reason Stop Dose Admin Acetaminophen 650 mg 10/02/20 05:23 Acetaminophen 325 Mg Tab PO Q6H PRN Pain MILD(1-3)/Fever >100.5/CLIFTON Bisacodyl 10 mg 10/02/20 05:23 Bisacodyl 10 Mg Rect Supp MN QDAY PRN Constipation Dexamethasone 6 mg 10/03/20 04:00 10/03/20 03:36 Dexamethasone 4 Mg/Ml Vial IV 10/12/20 04:01 6 mg Q24H MUSTAPHA Administration Dextrose 50 ml 10/02/20 06:44 Dextrose 50% In Water (25gm) 50 Ml Syringe IV Q30MIN PRN Hypoglycemia Protocol Famotidine 20 mg 10/02/20 10:00 10/02/20 13:16 Famotidine 20 Mg/2 Ml Inj IV 20 mg DAILY MUSTAPHA Administration Fentanyl 50 mcg 10/02/20 00:53 Fentanyl 100 Mcg/2 Ml Inj IV Q10MIN PRN ANALGESIA Heparin Sodium (Porcine) 5,000 unit 10/02/20 06:00 10/03/20 06:20 Heparin 5,000 Unit/1 Ml Vial SUB-Q 5,000 unit Q8HR MUSTAPHA Administration Hydrophilic Ointment 1 applic 10/02/20 00:53 Lip Therapy Vaseline TP Q2HR PRN Dry Lips Fentanyl Citrate 2,000 mcg in 100 mls @ 4.2 mls/hr 10/02/20 01:00 10/03/20 06:15 Fentanyl Drip Premix IV 4 mcg/kg/hr TITR MUSTAPHA 16.8 mls/hr Titration Protocol 1 MCG/KG/HR Propofol 1,000 mg in 100 mls @ 2.52 mls/hr 10/02/20 03:00 Diprivan 10 Mg/Ml IV TITR MUSTAPHA Protocol 5 MCG/KG/MIN Sodium Chloride 1,000 mls @ 125 mls/hr 10/02/20 05:30 10/03/20 02:13 Nacl 0.9% 1000 Ml IV 125 mls/hr DIRECT MUSTAPHA Administration Ceftriaxone Sodium 2 gm in 100 mls @ 200 mls/hr 10/03/20 03:30 10/03/20 02:36 Rocephin/Ns 2 Gm/100 Ml IV 10/07/20 03:59 200 mls/hr Q24H MUSTAPHA Administration Protocol Azithromycin 500 mg in 250 mls @ 250 mls/hr 10/03/20 04:00 10/03/20 03:36 Zithromax/Ns IV 10/07/20 04:59 250 mls/hr Q24H MUSTAPHA Administration Protocol Insulin Human Lispro 0 unit 10/02/20 12:00 10/03/20 06:20 Insulin Lispro 100 Unit/Ml SUB-Q 8 unit Q6HR MUSTAPHA Administration Protocol Magnesium Hydroxide 30 ml 10/02/20 05:23 Magnesium Hydroxide (Mom) Oral Liqd Udc PO Q4H PRN Constipation Metoclopramide HCl 5 mg 10/02/20 05:53 Metoclopramide 10 Mg Tab PO Q6H PRN Nausea And Vomiting Midazolam HCl 2 mg 10/02/20 09:48 Midazolam 2 Mg/2 Ml Inj IV Q10MIN PRN Sedation Multi-Ingred Cream/Lotion/Oil/Oint 1 applic 10/02/20 00:53 Mineral Oil/Petrolatum, White Ophth Oint 3.5 Gm OU Q4HR PRN Dry Eye(s) Ondansetron HCl 4 mg 10/02/20 05:23 Ondansetron 4 Mg/2 Ml Inj IV Q8H PRN Nausea And Vomiting Promethazine HCl 25 mg 10/02/20 05:23 Promethazine 25 Mg Rect Supp MN Q6H PRN Nausea And Vomiting Senna/Docusate Sodium 1 tab 10/02/20 22:00 10/02/20 21:49 Sennosides/Docusate Sodium 8.6/50 Mg Tab FEEDTUBE Not Given BID MUSTAPHA Sodium Chloride 10 ml 10/02/20 10:00 10/02/20 21:53 Sodium Chloride 0.9% 10 Ml Flush Syringe IV 10 ml BID MUSTAPHA Administration Sodium Chloride 10 ml 10/02/20 05:23 Sodium Chloride 0.9% 10 Ml Flush Syringe IV PRN PRN LINE FLUSH
[2020-10-03 09:09] LABS: Calcium 9.3 mg/dL (8.4-10.2)
[2020-10-03] MEDS ORDERED: TOCILIZUMAB 600 MG in SODIUM CHLORIDE 0.9% 100 ML IV ONE (10:33)
--- NOTE | 2020-10-03 10:35 | Progress Note ---
Assessment and Plan Cultures: Blood culture no growth so far Covid PCR: Positive A/P: 50-year-old man past medical history of hypertension, diabetes admitted as COVID #COVID pneumonia: with bilateral pneumonia. Pending PCR. Was also found to be covered in vomitus, as such concern for aspiration pneumonia. #Acute hypoxic respiratory failure: Currently vent. Secondary to pneumonia #Diabetes: tight glycemic control for best outcomes. #OLIVIA: Renally dose antibiotics Recs: -Continue steroids per pulmonary to complete 10 days. -Procalcitonin likely be falsely elevated in setting of renal failure complete 5 days of ceftriaxone and azithromycin. -Recommend Actemra given elevated CRP and intubation -Not a candidate for remdesivir due to renal failure. Thank you for the consult, we will continue to follow. Malgorzata Milligan MD [facility] O: [phone] F: [phone] Subjective Date of service: 10/03/20 Principal diagnosis: elevated lft Interval history: Afebrile, normal white count. Covid positive. Imaging personally viewed: Chest x-ray: No change Remains on the vent Objective - Exam Narrative Exam: Physical exam deferred to reduce risk of transmission of COVID-19. Please refer to primary team's note. - Constitutional Vitals: Vital Signs Temp Pulse Resp BP Pulse Ox 97.7 F 55 L 20 124/81 100 10/02/20 22:00 10/03/20 08:45 10/03/20 08:31 10/03/20 08:45 10/03/20 08:45 Temperature -Last 24 Hours Temperature 97.7 F - Labs CBC & Chem 7: 10/02/20 01:01 10/03/20 05:25 Labs: Abnormal lab results 10/02/20 10/02/20 10/02/20 Range/Units 11:47 11:47 11:47 D-Dimer 1023.48 H (0-234) ng/mlDDU POC ABG pO2 (83-108) mmHg ABG Oxyhemoglobin (94-98) ABG Sodium (136.0-145.0) mmol/L ABG Chloride (98-107) mmol/L ABG Glucose (65-95) mg/dL Carboxyhemoglobin (0.5-1.5) Sodium (137-145) mmol/L Chloride (98-107) mmol/L BUN (9-20) mg/dL Creatinine (0.8-1.3) mg/dL Glucose (75-100) mg/dL POC Glucose (70-105) mg/dL Ferritin 8643.0 H (30.0-300.0) ng/mL AST (5-40) units/L ALT (7-56) units/L Lactate Dehydrogenase (91-180) units/L Total Creatine Kinase 2548 H (55-170) units/L C-Reactive Protein (0.00-1.30) mg/dL Albumin (3.9-5) g/dL Arterial Blood Glucose (65-95) mg/dL Urine Creatinine (0.1-20.0) mg/dL Coronavirus (PCR) (Negative) 10/02/20 10/02/20 10/02/20 Range/Units 11:47 18:48 23:51 D-Dimer (0-234) ng/mlDDU POC ABG pO2 (83-108) mmHg ABG Oxyhemoglobin (94-98) ABG Sodium (136.0-145.0) mmol/L ABG Chloride (98-107) mmol/L ABG Glucose (65-95) mg/dL Carboxyhemoglobin (0.5-1.5) Sodium (137-145) mmol/L Chloride (98-107) mmol/L BUN (9-20) mg/dL Creatinine (0.8-1.3) mg/dL Glucose (75-100) mg/dL POC Glucose 441 H 457 H (70-105) mg/dL Ferritin (30.0-300.0) ng/mL AST (5-40) units/L ALT (7-56) units/L Lactate Dehydrogenase 828 H (91-180) units/L Total Creatine Kinase (55-170) units/L C-Reactive Protein 13.60 H (0.00-1.30) mg/dL Albumin (3.9-5) g/dL Arterial Blood Glucose (65-95) mg/dL Urine Creatinine (0.1-20.0) mg/dL Coronavirus (PCR) (Negative) 10/02/20 10/03/20 10/03/20 Range/Units Unknown 05:22 05:25 D-Dimer (0-234) ng/mlDDU POC ABG pO2 74.3 L (83-108) mmHg ABG Oxyhemoglobin 93.2 L (94-98) ABG Sodium 133.6 L (136.0-145.0) mmol/L ABG Chloride 92.0 L (98-107) mmol/L ABG Glucose 399 H (65-95) mg/dL Carboxyhemoglobin 0.3 L (0.5-1.5) Sodium (137-145) mmol/L Chloride (98-107) mmol/L BUN (9-20) mg/dL Creatinine (0.8-1.3) mg/dL Glucose (75-100) mg/dL POC Glucose (70-105) mg/dL Ferritin (30.0-300.0) ng/mL AST 71 H (5-40) units/L ALT 88 H (7-56) units/L Lactate Dehydrogenase (91-180) units/L Total Creatine Kinase 1597 H (55-170) units/L C-Reactive Protein (0.00-1.30) mg/dL Albumin 2.6 L (3.9-5) g/dL Arterial Blood Glucose 399 H (65-95) mg/dL Urine Creatinine (0.1-20.0) mg/dL Coronavirus (PCR) Positive A (Negative) 10/03/20 10/03/20 10/03/20 Range/Units 05:25 06:09 06:30 D-Dimer (0-234) ng/mlDDU POC ABG pO2 (83-108) mmHg ABG Oxyhemoglobin (94-98) ABG Sodium (136.0-145.0) mmol/L ABG Chloride (98-107) mmol/L ABG Glucose (65-95) mg/dL Carboxyhemoglobin (0.5-1.5) Sodium 135 L (137-145) mmol/L Chloride 88.0 L (98-107) mmol/L BUN 102 H (9-20) mg/dL Creatinine 7.5 H (0.8-1.3) mg/dL Glucose 383 H (75-100) mg/dL POC Glucose 360 H (70-105) mg/dL Ferritin (30.0-300.0) ng/mL AST (5-40) units/L ALT (7-56) units/L Lactate Dehydrogenase (91-180) units/L Total Creatine Kinase (55-170) units/L C-Reactive Protein (0.00-1.30) mg/dL Albumin (3.9-5) g/dL Arterial Blood Glucose (65-95) mg/dL Urine Creatinine 156.1 H (0.1-20.0) mg/dL Coronavirus (PCR) (Negative) 10/03/20 Range/Units 09:06 D-Dimer (0-234) ng/mlDDU POC ABG pO2 (83-108) mmHg ABG Oxyhemoglobin (94-98) ABG Sodium (136.0-145.0) mmol/L ABG Chloride (98-107) mmol/L ABG Glucose (65-95) mg/dL Carboxyhemoglobin (0.5-1.5) Sodium (137-145) mmol/L Chloride (98-107) mmol/L BUN (9-20) mg/dL Creatinine (0.8-1.3) mg/dL Glucose (75-100) mg/dL POC Glucose 298 H (70-105) mg/dL Ferritin (30.0-300.0) ng/mL AST (5-40) units/L ALT (7-56) units/L Lactate Dehydrogenase (91-180) units/L Total Creatine Kinase (55-170) units/L C-Reactive Protein (0.00-1.30) mg/dL Albumin (3.9-5) g/dL Arterial Blood Glucose (65-95) mg/dL Urine Creatinine (0.1-20.0) mg/dL Coronavirus (PCR) (Negative)
--- NOTE | 2020-10-03 11:27 | Progress Note ---
Assessment and Plan Assessment and plan: 50-year-old male with known history of hypertension and diabetes mellitus brought into the emergency room by EMS for altered mental status and difficulty breathing. Patient was said to have been found at home unresponsive and last well-known time was about 8 PM on 09/30/2020. Patient's family indicates that patient was sitting in the recliner at about 8 PM on 09/30/2020 and was subsequently found in the same position today. Was said to have had some vomitus on his clothes and unresponsive. Patient was diagnosed with COVID-19 about a week ago. Most of the history was obtained from the ER staff. A code stroke was called while in the emergency room and CT scan of the head was subsequently ordered. Neurologist was also consulted . No further history was obtainable from patient as he is already intubated and sedated. Family members not available at this time. Work-up in the emergency room today, labs reveal total creatinine kinase of 2554, elevated liver enzymes, elevated troponin, BUN and creatinine of [address] scan of the head shows up to subcortical white matter hypodensity in the right frontal lobe. No acute bleed Chest x-ray reveals bilateral pneumonia 10/03: Patient continues on full ventilator support. Continues on steroids. Recommend Actemra given elevated CRP and intubation. Continue to monitor renal function. [employer] Operations Manager following patient may need dialysis support but will defer to quality checker. Will adjust insulin for better blood sugar control. GI input noted: LFT improving, consistent with combination of mild ischemic hepatitis and related to his covid infection, Hepatic synthetic function intact continue supportive care, avoid hepatotoxins and liver enzymes should continue to gradually normalize" Neurologist input is also noted recommending an MRI for further evaluation of abnormal CT head finding. (1) Acute hypoxic respiratory failure (2) Acute encephalopathy (3) Acute renal failure secondary to COVID-19 with underlying vasomotor nephropathy (4) COVID-19 Current Visit: Yes Status: Acute Plan to address problem: Patient has been placed on isolation precautions. Patient started on IV steroid. Consult placed to infectious disease for further recommendations. (5) acute rhabdomyolysis Current Visit: Yes Status: Acute Plan to address problem: Patient placed on IV fluid. We will monitor CK levels. Will await further evaluation and recommendations from nephrology. (6) Pneumonia Current Visit: Yes Status: Acute Qualifiers: Pneumonia type: due to unspecified organism Laterality: bilateral Lung location: unspecified part of lung Qualified Code(s): J18.9 - Pneumonia, unspecified organism Plan to address problem: Possibly secondary to COVID-19. Patient commenced on empiric IV antibiotics and IV steroid. We await evaluation by infectious disease. (7) hyperglycemia possible underlining diabetes mellitus (8) DVT prophylaxis Current Visit: Yes Status: Acute Plan to address problem: Patient placed on subcutaneous heparin. (9) abnormal CT head (10)full code status Current Visit: Yes Status: Acute Plan to address problem: Patient is full code. The high probability of a clinically significant, sudden or life threatening deterioration of the [PULMONARY, NEUROLOGY] system(s) required my full and direct attention, intervention and personal management. The aggregate critical care time was [35] minutes. This time is in addition to time spent performing reported procedures but includes the following: [X] Data Review and interpretation [X] Patient assessment and monitoring of vital signs [X] Documentation [X] Medication orders and management History Interval history: Patient seen and examined remains on full ventilatory support. Discussed with nursing staff reports that patient when awake moves all extremities follows some commands. No fever documented. Hospitalist Physical - Physical exam Narrative exam: General appearance: Present: other (Intubated and sedated) - EENT Eyes: Present: PERRL, EOM intact. Absent: scleral icterus ENT: hearing intact, clear oral mucosa, dentition normal - Neck Neck: Present: supple, normal ROM - Respiratory Respiratory effort: other (Currently intubated on the vent) Respiratory: bilateral: diminished - Cardiovascular Rhythm: regular Heart Sounds: Present: S1 & S2. Absent: gallop, systolic murmur, diastolic murmur, rub, click - Extremities Extremities: no ischemia, pulses intact, pulses symmetrical, No edema, normal temperature, normal color, Full ROM Peripheral Pulses: within normal limits - Abdominal General gastrointestinal: Present: soft, non-tender, non-distended, normal bowel sounds. Absent: mass - Musculoskeletal Musculoskeletal: strength equal bilaterally - Psychiatric Psychiatric: cooperative - Neurologic Neurologic: no focal deficits - Constitutional Vitals: Temp Pulse Resp BP Pulse Ox 97.7 F 55 L 20 124/81 100 10/02/20 22:00 10/03/20 08:45 10/03/20 08:31 10/03/20 08:45 10/03/20 08:45 General appearance: Present: other (Intubated and sedated) HEART Score - HEART Score Troponin: Troponin T 0.036 ng/mL (0.00-0.029) H 10/02/20 01:01 Results - Labs CBC & Chem 7: 10/02/20 01:01 10/03/20 05:25 Labs: Laboratory Last Values WBC 11.0 K/mm3 (4.5-11.0) 10/02/20 01:01 RBC 5.04 M/mm3 (3.65-5.03) H 10/02/20 01:01 Hgb 13.7 gm/dl (11.8-15.2) 10/02/20 01:01 Hct 41.0 % (35.5-45.6) 10/02/20 01:01 MCV 81 fl (84-94) L 10/02/20 01:01 MCH 27 pg (28-32) L 10/02/20 01:01 MCHC 33 % (32-34) 10/02/20 01:01 RDW 14.3 % (13.2-15.2) 10/02/20 01:01 Plt Count 151 K/mm3 (140-440) 10/02/20 01:01 Add Manual Diff Complete 10/02/20 01:01 Total Counted 100 10/02/20 01:01 Seg Neuts % (Manual) 85.0 % (40.0-70.0) H 10/02/20 01:01 Band Neutrophils % 3.0 % 10/02/20 01:01 Lymphocytes % (Manual) 1.0 % (13.4-35.0) L 10/02/20 01:01 Monocytes % (Manual) 11.0 % (0.0-7.3) H 10/02/20 01:01 Nucleated RBC % 1.0 % (0.0-0.9) H 10/02/20 01:01 Seg Neutrophils # Man 9.4 K/mm3 (1.8-7.7) H 10/02/20 01:01 Band Neutrophils # 0.3 K/mm3 10/02/20 01:01 Lymphocytes # (Manual) 0.1 K/mm3 (1.2-5.4) L 10/02/20 01:01 Abs React Lymphs (Man) 0.0 K/mm3 10/02/20 01:01 Monocytes # (Manual) 1.2 K/mm3 (0.0-0.8) H 10/02/20 01:01 Eosinophils # (Manual) 0.0 K/mm3 (0.0-0.4) 10/02/20 01:01 Basophils # (Manual) 0.0 K/mm3 (0.0-0.1) 10/02/20 01:01 Metamyelocytes # 0.0 K/mm3 10/02/20 01:01 Myelocytes # 0.0 K/mm3 10/02/20 01:01 Promyelocytes # 0.0 K/mm3 10/02/20 01:01 Blast Cells # 0.0 K/mm3 10/02/20 01:01 WBC Morphology Not Reportable 10/02/20 01:01 Hypersegmented Neuts Not Reportable 10/02/20 01:01 Hyposegmented Neuts Not Reportable 10/02/20 01:01 Hypogranular Neuts Not Reportable 10/02/20 01:01 Smudge Cells Not Reportable 10/02/20 01:01 Toxic Granulation Not Reportable 10/02/20 01:01 Toxic Vacuolation Not Reportable 10/02/20 01:01 Dohle Bodies Not Reportable 10/02/20 01:01 Pelger-Huet Anomaly Not Reportable 10/02/20 01:01 Yohan Rods Not Reportable 10/02/20 01:01 Platelet Estimate Consistent w auto 10/02/20 01:01 Clumped Platelets Not Reportable 10/02/20 01:01 Plt Clumps, EDTA Not Reportable 10/02/20 01:01 Large Platelets Few 10/02/20 01:01 Giant Platelets Not Reportable 10/02/20 01:01 Platelet Satelliting Not Reportable 10/02/20 01:01 Plt Morphology Comment Not Reportable 10/02/20 01:01 RBC Morphology Not Reportable 10/02/20 01:01 Dimorphic RBCs Not Reportable 10/02/20 01:01 Polychromasia Not Reportable 10/02/20 01:01 Hypochromasia Not Reportable 10/02/20 01:01 Poikilocytosis Not Reportable 10/02/20 01:01 Anisocytosis 1+ 10/02/20 01:01 Microcytosis Not Reportable 10/02/20 01:01 Macrocytosis Not Reportable 10/02/20 01:01 Spherocytes Not Reportable 10/02/20 01:01 Pappenheimer Bodies Not Reportable 10/02/20 01:01 Sickle Cells Not Reportable 10/02/20 01:01 Target Cells Not Reportable 10/02/20 01:01 Tear Drop Cells Not Reportable 10/02/20 01:01 Ovalocytes Not Reportable 10/02/20 01:01 Helmet Cells Not Reportable 10/02/20 01:01 De Guzman-Tanana Bodies Not Reportable 10/02/20 01:01 [place] Rings Not Reportable 10/02/20 01:01 Obdulia Cells Not Reportable 10/02/20 01:01 Bite Cells Not Reportable 10/02/20 01:01 Crenated Cell Not Reportable 10/02/20 01:01 Elliptocytes Not Reportable 10/02/20 01:01 Acanthocytes (Spur) Not Reportable 10/02/20 01:01 Rouleaux Not Reportable 10/02/20 01:01 Hemoglobin C Crystals Not Reportable 10/02/20 01:01 Schistocytes Not Reportable 10/02/20 01:01 Malaria parasites Not Reportable 10/02/20 01:01 Shekhar Bodies Not Reportable 10/02/20 01:01 Hem Pathologist Commnt No 10/02/20 01:01 PT 15.3 Sec. (12.2-14.9) H 10/02/20 01:01 INR 1.16 (0.87-1.13) H 10/02/20 01:01 APTT 30.9 Sec. (24.2-36.6) 10/02/20 01:01 Thrombin Time 23.2 Sec. (15.1-19.6) H 10/02/20 01:01 D-Dimer 1023.48 ng/mlDDU (0-234) H 10/02/20 11:47 ABG pH 7.410 (7.320-7.450) 10/03/20 05:22 POC ABG pCO2 40.6 mmHg (32.0-48.0) 10/03/20 05:22 POC ABG pO2 74.3 mmHg (83-108) L 10/03/20 05:22 POC ABG HCO3 25.2 10/03/20 05:22 ABG O2 Saturation 93.5 (0-100) 10/03/20 05:22 POC ABG Base Excess 0.5 10/03/20 05:22 ABG Hemoglobin 13.5 (12.0-17.5) 10/03/20 05:22 ABG Oxyhemoglobin 93.2 (94-98) L 10/03/20 05:22 ABG Methemoglobin 0 (0.0-1.5) 10/03/20 05:22 ABG Sodium 133.6 mmol/L (136.0-145.0) L 10/03/20 05:22 ABG Potassium 4.1 mmol/L (3.40-4.50) 10/03/20 05:22 ABG Chloride 92.0 mmol/L (98-107) L 10/03/20 05:22 ABG Glucose 399 mg/dL (65-95) H 10/03/20 05:22 Carboxyhemoglobin 0.3 (0.5-1.5) L 10/03/20 05:22 FiO2 % 100.0 10/03/20 05:22 Sodium 135 mmol/L (137-145) L 10/03/20 05:25 Potassium 4.3 mmol/L (3.6-5.0) 10/03/20 05:25 Chloride 88.0 mmol/L (98-107) L 10/03/20 05:25 Carbon Dioxide 27 mmol/L (22-30) 10/03/20 05:25 Anion Gap 24 mmol/L 10/03/20 05:25 BUN 102 mg/dL (9-20) H 10/03/20 05:25 Creatinine 7.5 mg/dL (0.8-1.3) H 10/03/20 05:25 Estimated GFR 9 ml/min 10/03/20 05:25 BUN/Creatinine Ratio 14 % 10/03/20 05:25 Glucose 383 mg/dL (75-100) H 10/03/20 05:25 POC Glucose 298 mg/dL (70-105) H 10/03/20 09:06 Calcium 9.3 mg/dL (8.4-10.2) 10/03/20 05:25 Ferritin 8643.0 ng/mL (30.0-300.0) H 10/02/20 11:47 Total Bilirubin 0.30 mg/dL (0.1-1.2) 10/03/20 05:25 Direct Bilirubin < 0.2 mg/dL (0-0.2) 10/03/20 05:25 Indirect Bilirubin 0.1 mg/dL 10/03/20 05:25 AST 71 units/L (5-40) H 10/03/20 05:25 ALT 88 units/L (7-56) H 10/03/20 05:25 Alkaline Phosphatase 60 units/L (35-129) 10/03/20 05:25 Lactate Dehydrogenase 828 units/L (91-180) H 10/02/20 11:47 Total Creatine Kinase 1597 units/L (55-170) H 10/03/20 05:25 CK-MB (CK-2) 14.8 ng/mL (0.0-4.0) H 10/02/20 01:01 CK-MB (CK-2) Rel Index 0.5 (0-4) 10/02/20 01:01 Troponin T 0.036 ng/mL (0.00-0.029) H 10/02/20 01:01 C-Reactive Protein 13.60 mg/dL (0.00-1.30) H 10/02/20 11:47 Total Protein 6.7 g/dL (6.3-8.2) 10/03/20 05:25 Albumin 2.6 g/dL (3.9-5) L 10/03/20 05:25 Albumin/Globulin Ratio 0.6 % 10/03/20 05:25 Triglycerides 427 mg/dL (2-149) H 10/02/20 01:01 Cholesterol 165 mg/dL (50-199) 10/02/20 01:01 LDL Cholesterol Direct TNR 10/02/20 01:01 HDL Cholesterol 31 mg/dL (40-59) L 10/02/20 01:01 Cholesterol/HDL Ratio 5.32 % 10/02/20 01:01 Procalcitonin 18.80 ng/mL (<0.15) 10/02/20 11:47 Arterial Blood Glucose 399 mg/dL (65-95) H 10/03/20 05:22 Urine Color Alison (Yellow) 10/02/20 02:59 Urine Turbidity Cloudy (Clear) 10/02/20 02:59 Urine pH 5.0 (5.0-7.0) 10/02/20 02:59 Ur Specific [place] 1.025 (1.003-1.030) 10/02/20 02:59 Urine Protein >500 mg/dL (Negative) 10/02/20 02:59 Urine Glucose (UA) 50 mg/dL (Negative) 10/02/20 02:59 Urine Ketones Neg mg/dL (Negative) 10/02/20 02:59 Urine Blood Lg (Negative) 10/02/20 02:59 Urine Nitrite Neg (Negative) 10/02/20 02:59 Urine Bilirubin Neg (Negative) 10/02/20 02:59 Urine Urobilinogen < 2.0 mg/dL (<2.0) 10/02/20 02:59 Ur Leukocyte Esterase Neg (Negative) 10/02/20 02:59 Urine WBC (Auto) 8.0 /HPF (0.0-6.0) H 10/02/20 02:59 Urine RBC (Auto) 3.0 /HPF (0.0-6.0) 10/02/20 02:59 U Epithel Cells (Auto) 2.0 /HPF (0-13.0) 10/02/20 02:59 Amorphous Crystals Few 10/02/20 02:59 Urine Mucus Few /HPF 10/02/20 02:59 Urine Creatinine 156.1 mg/dL (0.1-20.0) H 10/03/20 06:30 Urine Sodium 22 mmol/L 10/03/20 06:30 Urine Opiates Screen Negative 10/02/20 02:59 Urine Methadone Screen Negative 10/02/20 02:59 Ur Barbiturates Screen Negative 10/02/20 02:59 Ur Phencyclidine Scrn Negative 10/02/20 02:59 Ur Amphetamines Screen Negative 10/02/20 02:59 U Benzodiazepines Scrn Negative 10/02/20 02:59 Urine Cocaine Screen Negative 10/02/20 02:59 U Marijuana (THC) Screen Negative 10/02/20 02:59 Drugs of Abuse Note Disclamer 10/02/20 02:59 Plasma/Serum Alcohol < 0.01 % (0-0.07) 10/02/20 01:01 Coronavirus (PCR) Positive (Negative) A 10/02/20 Unknown Hepatitis A IgM Ab Non-reactive (NonReactive) 10/02/20 01:01 Hep Bs Antigen Non-reactive (Negative) 10/02/20 01:01 Hep B Core IgM Ab Non-reactive (NonReactive) 10/02/20 01:01 Hepatitis C Antibody Non-reactive (NonReactive) 10/02/20 01:01 Microbiology: Microbiology 10/02/20 01:18 Peripheral/Venous Blood Culture - Preliminary NO GROWTH AFTER 24 HOURS 10/02/20 01:13 Peripheral/Venous Blood Culture - Preliminary NO GROWTH AFTER 24 HOURS [place]/IV: Voiding Method Indwelling Catheter Active Medications - Current Medications Current Medications: Generic Name Dose Route Start Last Admin Trade Name Freq PRN Reason Stop Dose Admin Acetaminophen 650 mg 10/02/20 05:23 Acetaminophen 325 Mg Tab PO Q6H PRN Pain MILD(1-3)/Fever >100.5/CLIFTON Bisacodyl 10 mg 10/02/20 05:23 Bisacodyl 10 Mg Rect Supp [place] QDAY PRN Constipation Dexamethasone 6 mg 10/03/20 04:00 10/03/20 03:36 Dexamethasone 4 Mg/Ml Vial IV 10/12/20 04:01 6 mg Q24H MUSTAPHA Administration Dextrose 50 ml 10/02/20 06:44 Dextrose 50% In Water (25gm) 50 Ml Syringe IV Q30MIN PRN Hypoglycemia Protocol Famotidine 20 mg 10/02/20 10:00 10/02/20 13:16 Famotidine 20 Mg/2 Ml Inj IV 20 mg DAILY MUSTAPHA Administration Fentanyl 50 mcg 10/02/20 00:53 Fentanyl 100 Mcg/2 Ml Inj IV Q10MIN PRN ANALGESIA Heparin Sodium (Porcine) 5,000 unit 10/02/20 06:00 10/03/20 06:20 Heparin 5,000 Unit/1 Ml Vial SUB-Q 5,000 unit Q8HR MUSTAPHA Administration Hydrophilic Ointment 1 applic 10/02/20 00:53 Lip Therapy Vaseline TP Q2HR PRN Dry Lips Fentanyl Citrate 2,000 mcg in 100 mls @ 4.2 mls/hr 10/02/20 01:00 10/03/20 06:15 Fentanyl Drip Premix IV 4 mcg/kg/hr TITR MUSTAPHA 16.8 mls/hr Titration Protocol 1 MCG/KG/HR Propofol 1,000 mg in 100 mls @ 2.52 mls/hr 10/02/20 03:00 Diprivan 10 Mg/Ml IV TITR MUSTAPHA Protocol 5 MCG/KG/MIN Sodium Chloride 1,000 mls @ 125 mls/hr 10/02/20 05:30 10/03/20 02:13 Nacl 0.9% 1000 Ml IV 125 mls/hr DIRECT MUSTAPHA Administration Ceftriaxone Sodium 2 gm in 100 mls @ 200 mls/hr 10/03/20 03:30 10/03/20 02:36 Rocephin/Ns 2 Gm/100 Ml IV 10/07/20 03:59 200 mls/hr Q24H MUSTAPHA Administration Protocol Azithromycin 500 mg in 250 mls @ 250 mls/hr 10/03/20 04:00 10/03/20 03:36 Zithromax/Ns IV 10/07/20 04:59 250 mls/hr Q24H MUSTAPHA Administration Protocol TOCILIZUMAB 600 mg/ Sodium 130 mls @ 120 mls/hr 10/03/20 10:33 Chloride IV 10/03/20 11:37 ONCE ONE Insulin Glargine 20 units 10/03/20 22:00 Insulin Glargine 100 Units/Ml SUB-Q QHS [facility]1983 Insulin Human Lispro 0 unit 10/02/20 12:00 10/03/20 06:20 Insulin Lispro 100 Unit/Ml SUB-Q 8 unit Q6HR [facility]1983 Administration Protocol Magnesium Hydroxide 30 ml 10/02/20 05:23 Magnesium Hydroxide (Mom) Oral Liqd Udc PO Q4H PRN Constipation Metoclopramide HCl 5 mg 10/02/20 05:53 Metoclopramide 10 Mg Tab PO Q6H PRN Nausea And Vomiting Midazolam HCl 2 mg 10/02/20 09:48 Midazolam 2 Mg/2 Ml Inj IV Q10MIN PRN Sedation Multi-Ingred Cream/Lotion/Oil/Oint 1 applic 10/02/20 00:53 Mineral Oil/Petrolatum, White Ophth Oint 3.5 Gm OU Q4HR PRN Dry Eye(s) Ondansetron HCl 4 mg 10/02/20 05:23 Ondansetron 4 Mg/2 Ml Inj IV Q8H PRN Nausea And Vomiting Promethazine HCl 25 mg 10/02/20 05:23 Promethazine 25 Mg Rect Supp [place] Q6H PRN Nausea And Vomiting Senna/Docusate Sodium 1 tab 10/02/20 22:00 10/02/20 21:49 Sennosides/Docusate Sodium 8.6/50 Mg Tab FEEDTUBE Not Given BID MUSTAPHA Sodium Chloride 10 ml 10/02/20 10:00 10/03/20 10:50 Sodium Chloride 0.9% 10 Ml Flush Syringe IV Not Given BID MUSTAPHA Sodium Chloride 10 ml 10/02/20 05:23 Sodium Chloride 0.9% 10 Ml Flush Syringe IV PRN PRN LINE FLUSH Nutrition/Malnutrition Assess - Dietary Evaluation Nutrition/Malnutrition Findings: Nutrition Notes Start: 10/02/20 07:33 Freq: Status: Active Protocol: Document 10/02/20 07:33 TODD (Rec: 10/02/20 07:39 [id number]) Nutrition Notes Need for Assessment generated from: MD Order Initial or Follow up Assessment Current Diagnosis Acute Kidney Injury,Diabetes, Hypertension,Respiratory Failure Other Pertinent Diagnosis pneu, COVID Current Diet NPO Labs/Tests BUN 66 Cr 5.6 BG 292 Pertinent Medications reviewed Height 5 ft 9 in Weight 84 kg [place] Body Weight (kg) 72.72 BMI 27.3 Weight Status Overweight Subjective/Other Information MD consult for diet education and nutrition recommendations. Pt on on hold and on vent. Burn Absent Trauma Absent Current % PO Negligible Minimum of two criteria No physical signs of malnutrition #1 Nutrition Diagnosis Inadequate oral intake Etiology respiratory failure As Evidenced by Signs and Symptoms pt on vent and unable to consume PO Is patient on ventilator? Yes Is Patient Ambulatory and/or Out of Bed No REE-([facility]-confined to bed) 2025.344 Calculation Used for Recommendations [facility] Additional Notes Protein: (1.2-2g/kg) 101-168g Fluid: 1 ml/kcal or per MD Nutrition Intervention Change Diet Order: Advance as able or start TF Nutrition Support: Recommend: Vital AF 1.2 at 65 ml/hr Flush 100 ml q4h Kcal 1,872 Protein (gm) 117 Fluid (mL) 1,265 Goal #1 Start TF or extubation Anticipated Discharge Needs: Unable to determine at this time Follow-Up By: 10/06/20 Additional Comments F/u: TF consult or extubation
--- NOTE | 2020-10-03 12:30 | Vascular Lab Report ---
DUPLEX DOPPLER LOWER EXTREMITY VEINS, BILATERAL INDICATION / CLINICAL INFORMATION: Bilateral lower extremity swelling. TECHNIQUE: Duplex doppler imaging was performed through the veins of both lower extremities using venous cortes alexey and other maneuvers. COMPARISON: None available. FINDINGS: RIGHT COMMON FEMORAL VEIN: Negative. RIGHT FEMORAL VEIN: Negative. RIGHT POPLITEAL VEIN: Negative. RIGHT CALF VEINS: Negative. LEFT COMMON FEMORAL VEIN: Negative. LEFT FEMORAL VEIN: Negative. LEFT POPLITEAL VEIN: Negative. LEFT CALF VEINS: Negative. ADDITIONAL FINDINGS: None. IMPRESSION: 1. No sonographic evidence for DVT in either lower extremity. Signer Name: Noman Morales MD Signed: 10/03/2020 12:25 PM Workstation Name: [id number]
[2020-10-03] MEDS: FAMOTIDINE 20 MG/2 ML INJ IV SCH (12:44)
[2020-10-03] MEDS: SENNOSIDES/DOCUSATE SODIUM 8.6/50 MG TAB FEEDTUBE SCH ×2 (12:44→21:49)
--- NOTE | 2020-10-03 13:13 | Progress Note ---
Assessment and Plan Acute hypoxemic respiratory failure on MVS COVID-19 infection Bilateral pneumonia Acute kidney injury Acute toxic metabolic encephalopathy Rhabdomyolysis Elevated serum inflammatory markers to include the D-dimers as well as ferritin level Non-ST elevation myocardial infarction Oropharyngeal dysphagia - increased peep to 14 cm H2O - paced nutrition consult - continue Daily SAT and SBT assessment as tolerated - continue to wean supplemental oxygen for target O2 sat's > 90% acutely - VAP bundle addressed - continue lung protective strategies - continue bronchodilators with pulmonary hygiene per RT - wean per pulmonary driven protocols otherwise - continue accuchecks with glycemic control per SSI (While critically ill target blood glucose of 140-180 mg/dL; avoid hypoglycemia) - sedation prn for target RASS 0 to -1 - avoid nephrotoxins, renally dose all medications - continue to avoid benzodiazepine's, reduce the possibility of delirium - complete AB's per ID rec's - prn analgesia per CPOT score - Maintenance of sleep-wake cycle, avoid delirium - continue enteral nutritional support at goal rate as tolerated - G.I. & VTE prophylaxis - PT/OT/ROM exercises - continue mobility protocols for pressure ulcer prophylaxis - Monitor hemodynamics closely - continue other care per attending / other consultants - discharge planning ongoing concurrently COVID SPECIFIC INTERVENTIONS - To receive Actemra - Remdesivir as per ID/Pulmonary developed protocols (not a candidate) - continue systemic steroids for severe COVID-19 infection empirically - follow repeat COVID tests results - zinc and vitamin C supplementation - Monitor inflammatory markers per facility protocol - ferritin, Ddimer, CRP - therapeutic anticoagulation per system Protocol based on d-dimer and clinical considerations - Continue contact and airborne isolation .... Re-evaluate in am & prn CONDITION: CRITICAL PROGNOSIS: GUARDED CODE STATUS: FULL CODE The high probability of a clinically significant, sudden or life-threatening deterioration of the [respiratory, cardiovascular, renal & neurologic] system(s) required my full and direct attention, intervention and personal management. The aggregate critical care time was [36] minutes without overlap. Time includes spent on; [x] Data Review and interpretation [x] Patient assessment and monitoring of vital signs [x] Documentation [x] Medication orders and management Subjective Date of service: 10/03/20 Principal diagnosis: Ac hypoxemic resp; COVID-19; Pneumonia; OLIVIA; Ac encephalopathy; NSTEMI Interval history: Patient is seen today for: Acute hypoxemic respiratory; COVID-19 infection; Pneumonia; OLIVIA; Acute toxic metabolic encephalopathy; NSTEMI Seen and examined at bedside; 24hour events reviewed; nursing and respiratory care staff consulted; no adverse overnight events reported to me; resting in bed; remains on 100% FiO2; sedated; no emesis or overt aspiration; peep at 10 Objective Vital Signs - 12hr 10/03/20 10/03/20 10/03/20 01:31 01:45 02:01 Pulse Rate 71 77 Respiratory 20 20 Rate Blood Pressure 176/103 141/88 O2 Sat by Pulse 96 95 96 Oximetry 10/03/20 10/03/20 10/03/20 02:31 03:01 03:31 Pulse Rate 73 68 63 Respiratory 20 20 20 Rate Blood Pressure 136/86 111/73 110/73 O2 Sat by Pulse 97 94 95 Oximetry 10/03/20 10/03/20 10/03/20 04:01 04:31 05:01 Pulse Rate 60 57 L 55 L Respiratory 20 20 20 Rate Blood Pressure 102/67 106/73 108/74 O2 Sat by Pulse 95 97 98 Oximetry 10/03/20 10/03/20 10/03/20 05:21 05:31 05:45 Pulse Rate 52 L 67 Respiratory 20 Rate Blood Pressure 106/74 158/94 O2 Sat by Pulse 98 96 95 Oximetry 10/03/20 10/03/20 10/03/20 06:01 06:31 07:01 Pulse Rate 85 78 68 Respiratory 19 20 20 Rate Blood Pressure 187/108 168/108 137/88 O2 Sat by Pulse 100 99 97 Oximetry 10/03/20 10/03/20 10/03/20 07:31 08:01 08:31 Pulse Rate 62 60 59 L Respiratory 20 20 20 Rate Blood Pressure 126/77 124/81 124/80 O2 Sat by Pulse 97 97 98 Oximetry 10/03/20 10/03/20 10/03/20 08:45 09:01 09:11 Pulse Rate 55 L 58 L 57 L Respiratory 20 20 Rate Blood Pressure 124/81 126/80 123/81 O2 Sat by Pulse 100 99 99 Oximetry 10/03/20 10/03/20 10/03/20 09:21 09:31 09:41 Pulse Rate 53 L 56 L 53 L Respiratory 20 20 20 Rate Blood Pressure 123/81 131/86 130/87 O2 Sat by Pulse 100 100 100 Oximetry 10/03/20 10/03/20 10/03/20 09:51 10:01 10:11 Pulse Rate 58 L 57 L 57 L Respiratory 20 20 20 Rate Blood Pressure 130/87 126/84 127/84 O2 Sat by Pulse 99 99 99 Oximetry 10/03/20 10/03/20 10/03/20 10:21 10:31 10:41 Pulse Rate 59 L 59 L 58 L Respiratory 20 20 20 Rate Blood Pressure 127/84 122/80 128/79 O2 Sat by Pulse 98 98 98 Oximetry 10/03/20 10/03/20 10/03/20 10:51 11:01 11:11 Pulse Rate 58 L 66 72 Respiratory 20 21 20 Rate Blood Pressure 128/79 124/83 169/101 O2 Sat by Pulse 99 99 99 Oximetry 10/03/20 10/03/20 10/03/20 11:21 11:31 11:41 Pulse Rate 82 67 74 Respiratory 15 20 20 Rate Blood Pressure 169/101 167/101 155/94 O2 Sat by Pulse 97 97 94 Oximetry Constitutional: no acute distress, other (middle aged male with mildly increased respiratory effort at rest on MVS) Eyes: non-icteric ENT: oropharynx moist, other (ETT 24 cm CARY) Neck: supple, no lymphadenopathy, no JVD, other (large circumference) Effort: mildly labored Ascultation: Bilateral: diminished breath sounds, rhonchi Percussion: Bilateral: not dull Cardiovascular: regular rate and rhythm Gastrointestinal: normoactive bowel sounds, soft, non-tender, non-distended (protuberant) Integumentary: normal Extremities: no cyanosis, no edema, pulses normal, no ischemia or petechiae Neurologic: non-focal exam (grossly), pupils equal and round, unable to assess, other (sedated) Psychiatric: other (unable to assess re: AMS) CBC and BMP: 10/06/20 02:09 10/06/20 02:09 ABG, PT/INR, D-dimer: ABG ABG pH 7.410 (7.320-7.450) 10/03/20 05:22 POC ABG pCO2 40.6 mmHg (32.0-48.0) 10/03/20 05:22 POC ABG pO2 74.3 mmHg (83-108) L 10/03/20 05:22 POC ABG HCO3 25.2 10/03/20 05:22 ABG O2 Saturation 93.5 (0-100) 10/03/20 05:22 PT/INR, D-dimer PT 15.3 Sec. (12.2-14.9) H 10/02/20 01:01 INR 1.16 (0.87-1.13) H 10/02/20 01:01 D-Dimer 1023.48 ng/mlDDU (0-234) H 10/02/20 11:47 Abnormal lab findings: Abnormal Labs 10/02/20 10/02/20 10/02/20 01:01 01:01 01:01 RBC 5.04 H MCV 81 L MCH 27 L Seg Neuts % (Manual) 85.0 H Lymphocytes % (Manual) 1.0 L Monocytes % (Manual) 11.0 H Nucleated RBC % 1.0 H Seg Neutrophils # Man 9.4 H Lymphocytes # (Manual) 0.1 L Monocytes # (Manual) 1.2 H PT 15.3 H INR 1.16 H Thrombin Time 23.2 H D-Dimer POC ABG pO2 ABG Oxyhemoglobin ABG Sodium ABG Chloride ABG Glucose Carboxyhemoglobin Sodium 133 L Chloride 85.1 L BUN 66 H Creatinine 5.6 H Glucose 292 H POC Glucose Ferritin AST 173 H ALT 139 H Lactate Dehydrogenase Total Creatine Kinase 2544 H CK-MB (CK-2) 14.8 H Troponin T 0.036 H C-Reactive Protein Albumin 3.3 L Triglycerides 427 H HDL Cholesterol 31 L Arterial Blood Glucose Urine WBC (Auto) Urine Creatinine Coronavirus (PCR) 10/02/20 10/02/20 10/02/20 02:59 03:51 11:47 RBC MCV MCH Seg Neuts % (Manual) Lymphocytes % (Manual) Monocytes % (Manual) Nucleated RBC % Seg Neutrophils # Man Lymphocytes # (Manual) Monocytes # (Manual) PT INR Thrombin Time D-Dimer POC ABG pO2 55.2 L ABG Oxyhemoglobin 85.4 L ABG Sodium 132.0 L ABG Chloride 89.0 L ABG Glucose 372 H Carboxyhemoglobin Sodium Chloride BUN Creatinine Glucose POC Glucose Ferritin AST ALT Lactate Dehydrogenase Total Creatine Kinase 2548 H CK-MB (CK-2) Troponin T C-Reactive Protein Albumin Triglycerides HDL Cholesterol Arterial Blood Glucose 372 H Urine WBC (Auto) 8.0 H Urine Creatinine Coronavirus (PCR) 10/02/20 10/02/20 10/02/20 11:47 11:47 11:47 RBC MCV MCH Seg Neuts % (Manual) Lymphocytes % (Manual) Monocytes % (Manual) Nucleated RBC % Seg Neutrophils # Man Lymphocytes # (Manual) Monocytes # (Manual) PT INR Thrombin Time D-Dimer 1023.48 H POC ABG pO2 ABG Oxyhemoglobin ABG Sodium ABG Chloride ABG Glucose Carboxyhemoglobin Sodium Chloride BUN Creatinine Glucose POC Glucose Ferritin 8643.0 H AST ALT Lactate Dehydrogenase 828 H Total Creatine Kinase CK-MB (CK-2) Troponin T C-Reactive Protein 13.60 H Albumin Triglycerides HDL Cholesterol Arterial Blood Glucose Urine WBC (Auto) Urine Creatinine Coronavirus (PCR) 10/02/20 10/02/20 10/02/20 18:48 23:51 Unknown RBC MCV MCH Seg Neuts % (Manual) Lymphocytes % (Manual) Monocytes % (Manual) Nucleated RBC % Seg Neutrophils # Man Lymphocytes # (Manual) Monocytes # (Manual) PT INR Thrombin Time D-Dimer POC ABG pO2 ABG Oxyhemoglobin ABG Sodium ABG Chloride ABG Glucose Carboxyhemoglobin Sodium Chloride BUN Creatinine Glucose POC Glucose 441 H 457 H Ferritin AST ALT Lactate Dehydrogenase Total Creatine Kinase CK-MB (CK-2) Troponin T C-Reactive Protein Albumin Triglycerides HDL Cholesterol Arterial Blood Glucose Urine WBC (Auto) Urine Creatinine Coronavirus (PCR) Positive A 10/03/20 10/03/20 10/03/20 05:22 05:25 05:25 RBC MCV MCH Seg Neuts % (Manual) Lymphocytes % (Manual) Monocytes % (Manual) Nucleated RBC % Seg Neutrophils # Man Lymphocytes # (Manual) Monocytes # (Manual) PT INR Thrombin Time D-Dimer POC ABG pO2 74.3 L ABG Oxyhemoglobin 93.2 L ABG Sodium 133.6 L ABG Chloride 92.0 L ABG Glucose 399 H Carboxyhemoglobin 0.3 L Sodium 135 L Chloride 88.0 L BUN 102 H Creatinine 7.5 H Glucose 383 H POC Glucose Ferritin AST 71 H ALT 88 H Lactate Dehydrogenase Total Creatine Kinase 1597 H CK-MB (CK-2) Troponin T C-Reactive Protein Albumin 2.6 L Triglycerides HDL Cholesterol Arterial Blood Glucose 399 H Urine WBC (Auto) Urine Creatinine Coronavirus (PCR) 08/06/21 08/06/21 08/06/21 06:09 06:30 09:06 RBC MCV MCH Seg Neuts % (Manual) Lymphocytes % (Manual) Monocytes % (Manual) Nucleated RBC % Seg Neutrophils # Man Lymphocytes # (Manual) Monocytes # (Manual) PT INR Thrombin Time D-Dimer POC ABG pO2 ABG Oxyhemoglobin ABG Sodium ABG Chloride ABG Glucose Carboxyhemoglobin Sodium Chloride BUN Creatinine Glucose POC Glucose 360 H 298 H Ferritin AST ALT Lactate Dehydrogenase Total Creatine Kinase CK-MB (CK-2) Troponin T C-Reactive Protein Albumin Triglycerides HDL Cholesterol Arterial Blood Glucose Urine WBC (Auto) Urine Creatinine 156.1 H Coronavirus (PCR) 10/03/20 13:07 RBC MCV MCH Seg Neuts % (Manual) Lymphocytes % (Manual) Monocytes % (Manual) Nucleated RBC % Seg Neutrophils # Man Lymphocytes # (Manual) Monocytes # (Manual) PT INR Thrombin Time D-Dimer POC ABG pO2 ABG Oxyhemoglobin ABG Sodium ABG Chloride ABG Glucose Carboxyhemoglobin Sodium Chloride BUN Creatinine Glucose POC Glucose 243 H Ferritin AST ALT Lactate Dehydrogenase Total Creatine Kinase CK-MB (CK-2) Troponin T C-Reactive Protein Albumin Triglycerides HDL Cholesterol Arterial Blood Glucose Urine WBC (Auto) Urine Creatinine Coronavirus (PCR) Chest x-ray: image reviewed (bilateral pilmonary infiltrates stable) Allied health notes reviewed: nursing
[2020-10-03] MEDS: INSULIN GLARGINE 100 UNITS/ML SUB-Q SCH (21:52)
[2020-10-03] MEDS: ACETAMINOPHEN 325 MG TAB PO PRN (23:57)
--- NOTE | 2020-10-04 02:51 | XRay Report ---
CHEST - 1 VIEW INDICATION: follow up respiratory failure COMPARISON: Yesterday FINDINGS: SUPPORT DEVICES: Stable support device positioning. HEART: Stable cardiomediastinal silhouette. LUNGS/PLEURA: Persistent moderate patchy multifocal airspace disease. ADDITIONAL FINDINGS: None. IMPRESSION: Unchanged exam. Signer Name: Perez Merida MD Signed: 10/04/2020 2:47 AM Workstation Name: [id number]
[2020-10-04] MEDS: AZITHROMYCIN/NS 500 MG/250 ML 500 MG/250 ML BAG IV SCH (04:36)
[2020-10-04] MEDS: cefTRIAXone/NS 2 GM/100 ML 2 GM/100 ML BAG IV SCH (04:36)
[2020-10-04] MEDS: dexAMETHasone 4 MG/ML VIAL IV SCH (04:37)
[2020-10-04] MEDS: INSULIN LISPRO 100 UNIT/ML SUB-Q SCH ×3 (05:12→19:09)
--- NOTE | 2020-10-04 05:15 | Progress Note ---
Assessment and Plan Acute hypoxemic respiratory failure on MVS COVID-19 infection Bilateral pneumonia Acute kidney injury Acute toxic metabolic encephalopathy Rhabdomyolysis Elevated serum inflammatory markers to include the D-dimers as well as ferritin level Non-ST elevation myocardial infarction Oropharyngeal dysphagia He continue to desaturate requiring increasing FIO2 and PEEP. Once Trialysis catheter is placed and the patient get hemodialysis, he is to be proned per facility critical care proning protocol - continue to wean supplemental oxygen forSpO2 89-92% - VAP bundle addressed, aspiration precautions HOb >30 - continue lung protective strategies, monitor airway pressures - continue bronchodilators with pulmonary hygiene per RT - continue accuchecks with glycemic control per SSI (While critically ill target blood glucose of 140-180 mg/dL; avoid hypoglycemia) - sedation prn for target RASS -4 to -5 - avoid nephrotoxins, renally dose all medications - continue to avoid benzodiazepines, reduce the possibility of delirium - complete antibiotics per ID - Maintenance of sleep-wake cycle, avoid delirium - continue enteral nutritional support at goal rate as tolerated, adjust goal rate once proned - Stress ulcer and VTE prophylaxis - PT/OT/ROM exercises - continue mobility protocols for pressure ulcer prophylaxis - Monitor hemodynamics closely - continue other care per attending / other consultants - discharge planning ongoing concurrently COVID SPECIFIC INTERVENTIONS - To receive Actemra - Remdesivir as per ID/Pulmonary developed protocols (not a candidate) - continue systemic steroids for severe COVID-19 infection empirically - follow repeat COVID tests results - zinc and vitamin C supplementation - Monitor inflammatory markers per facility protocol - ferritin, Ddimer, CRP - therapeutic anticoagulation per system Protocol based on d-dimer and clinical considerations - Continue contact and airborne isolation CONDITION: CRITICAL PROGNOSIS: GUARDED CODE STATUS: FULL CODE The high probability of a clinically significant, sudden or life-threatening deterioration of the [respiratory, cardiovascular, renal & neurologic] system(s) required my full and direct attention, intervention and personal management. The aggregate critical care time was [35] minutes without overlap. The time excludes procedures . Time includes spent on; [x] Data Review and interpretation [x] Patient assessment and monitoring of vital signs [x] Documentation [x] Medication orders and management Subjective Date of service: 10/04/20 Principal diagnosis: elevated lft Interval history: Patient is seen today for: Acute hypoxemic respiratory; COVID-19 infection; Pn eumonia; OLIVIA; Acute toxic metabolic encephalopathy; NSTEMI Seen and examined at bedside; 24hour events reviewed; nursing and respiratory care staff consulted; no adverse overnight events reported to me; resting in bed; on MVS and heaprin infusion Critically ill, PEEP 14, FIO2 100% with P/F 77. Sedated, not responding. No reported fevers, no vomiting Objective Vital Signs - 12hr 10/03/20 10/03/20 10/03/20 17:21 17:23 17:31 Temperature 98.1 F Pulse Rate 75 80 Respiratory 21 20 Rate Blood Pressure 190/88 151/72 O2 Sat by Pulse 96 96 Oximetry 10/03/20 10/03/20 10/03/20 17:41 17:51 18:00 Temperature Pulse Rate 68 66 65 Respiratory 20 20 20 Rate Blood Pressure 151/72 139/82 136/79 O2 Sat by Pulse 94 93 94 Oximetry 10/03/20 10/03/20 10/03/20 18:11 18:21 18:30 Temperature Pulse Rate 64 66 65 Respiratory 20 19 20 Rate Blood Pressure 136/79 135/80 126/87 O2 Sat by Pulse 96 92 95 Oximetry 10/03/20 10/03/20 10/03/20 18:41 18:51 19:00 Temperature Pulse Rate 65 60 62 Respiratory 20 20 20 Rate Blood Pressure 126/87 145/85 139/84 O2 Sat by Pulse 87 95 96 Oximetry 10/03/20 10/03/20 10/03/20 19:11 19:15 19:21 Temperature Pulse Rate 61 61 61 Respiratory 20 20 Rate Blood Pressure 139/84 143/80 139/84 O2 Sat by Pulse 95 94 94 Oximetry 10/03/20 10/03/20 10/03/20 19:26 19:30 19:41 Temperature 99.8 F H Pulse Rate 61 60 Respiratory 20 20 Rate Blood Pressure 143/82 143/82 O2 Sat by Pulse 96 97 Oximetry 10/03/20 10/03/20 10/03/20 19:45 19:51 20:00 Temperature Pulse Rate 62 61 61 Respiratory 20 20 Rate Blood Pressure 143/83 144/83 O2 Sat by Pulse 92 97 97 Oximetry 10/03/20 10/03/20 10/03/20 20:11 20:21 20:30 Temperature Pulse Rate 64 62 61 Respiratory 20 21 20 Rate Blood Pressure 144/83 144/83 146/81 O2 Sat by Pulse 98 98 98 Oximetry 10/03/20 10/03/20 10/03/20 20:41 20:51 21:00 Temperature Pulse Rate 62 62 60 Respiratory 20 20 20 Rate Blood Pressure 146/81 147/84 153/85 O2 Sat by Pulse 97 96 97 Oximetry 10/03/20 10/03/20 10/03/20 21:11 21:21 21:30 Temperature Pulse Rate 67 63 85 Respiratory 20 20 15 Rate Blood Pressure 153/85 160/87 168/82 O2 Sat by Pulse 97 98 96 Oximetry 10/03/20 10/03/20 10/03/20 21:41 21:45 21:51 Temperature Pulse Rate 74 75 Respiratory 20 22 Rate Blood Pressure 168/82 170/81 O2 Sat by Pulse 97 92 97 Oximetry 10/03/20 10/03/20 10/03/20 22:00 22:11 22:21 Temperature Pulse Rate 70 69 69 Respiratory 21 20 19 Rate Blood Pressure 161/85 161/85 151/83 O2 Sat by Pulse 94 95 95 Oximetry 10/03/20 10/03/20 10/03/20 22:30 22:40 22:51 Temperature Pulse Rate 67 69 70 Respiratory 20 20 21 Rate Blood Pressure 154/83 154/83 156/86 O2 Sat by Pulse 95 95 95 Oximetry 10/03/20 10/03/20 10/03/20 23:00 23:11 23:21 Temperature Pulse Rate 71 67 67 Respiratory 19 20 20 Rate Blood Pressure 145/82 145/82 150/80 O2 Sat by Pulse 91 95 95 Oximetry 10/03/20 10/03/20 10/03/20 23:28 23:30 23:35 Temperature 101.8 F H Pulse Rate 67 75 Respiratory 20 2 L Rate Blood Pressure 152/83 191/102 O2 Sat by Pulse 92 73 L Oximetry 10/03/20 10/03/20 10/03/20 23:41 23:45 23:51 Temperature Pulse Rate 67 89 72 Respiratory 23 22 Rate Blood Pressure 152/83 169/87 O2 Sat by Pulse 96 92 95 Oximetry 10/03/20 10/04/20 10/04/20 23:57 00:00 00:01 Temperature Pulse Rate 76 89 Respiratory 25 H 21 Rate Blood Pressure 191/102 O2 Sat by Pulse 97 Oximetry 10/04/20 10/04/20 10/04/20 00:04 00:11 00:21 Temperature Pulse Rate 77 75 79 Respiratory 23 21 22 Rate Blood Pressure 191/102 191/102 158/84 O2 Sat by Pulse 97 92 92 Oximetry 10/04/20 10/04/20 10/04/20 00:30 00:41 00:51 Temperature Pulse Rate 78 78 78 Respiratory 21 23 24 Rate Blood Pressure 154/85 154/85 138/93 O2 Sat by Pulse 91 91 93 Oximetry 10/04/20 10/04/20 10/04/20 00:57 01:00 01:11 Temperature Pulse Rate 78 77 Respiratory 20 21 19 Rate Blood Pressure 157/85 157/85 O2 Sat by Pulse 91 90 Oximetry 10/04/20 10/04/20 10/04/20 01:21 01:30 01:41 Temperature Pulse Rate 77 75 76 Respiratory 20 20 21 Rate Blood Pressure 149/84 145/80 145/80 O2 Sat by Pulse 93 97 90 Oximetry 10/04/20 10/04/20 10/04/20 01:45 01:51 02:00 Temperature Pulse Rate 72 74 Respiratory 23 22 Rate Blood Pressure 148/80 150/82 O2 Sat by Pulse 92 93 92 Oximetry 10/04/20 10/04/20 10/04/20 02:11 02:21 02:30 Temperature Pulse Rate 72 72 91 H Respiratory 23 24 26 H Rate Blood Pressure 150/82 155/84 173/95 O2 Sat by Pulse 95 94 96 Oximetry 10/04/20 10/04/20 10/04/20 02:41 02:47 02:51 Temperature 102.7 F H Pulse Rate 78 76 Respiratory 16 24 Rate Blood Pressure 173/95 167/87 O2 Sat by Pulse 96 94 Oximetry 10/04/20 10/04/20 10/04/20 03:00 03:11 03:21 Temperature Pulse Rate 73 75 84 Respiratory 24 24 25 H Rate Blood Pressure 166/87 166/87 159/86 O2 Sat by Pulse 95 95 95 Oximetry 10/04/20 10/04/20 10/04/20 03:30 03:40 03:41 Temperature Pulse Rate 78 74 76 Respiratory 25 H 2 L 25 H Rate Blood Pressure 163/85 147/79 163/85 O2 Sat by Pulse 94 94 96 Oximetry 10/04/20 10/04/20 10/04/20 03:51 04:00 04:11 Temperature Pulse Rate 76 75 74 Respiratory 22 22 23 Rate Blood Pressure 151/81 140/76 140/76 O2 Sat by Pulse 92 91 93 Oximetry 10/04/20 04:21 Temperature Pulse Rate 74 Respiratory 22 Rate Blood Pressure 147/79 O2 Sat by Pulse 94 Oximetry Constitutional: no acute distress, other (middle aged male with mildly increased respiratory effort at rest on MVS) Eyes: non-icteric ENT: oropharynx moist, other (ETT 24 cm CARY) Neck: supple, no lymphadenopathy, no JVD, other (large circumference) Effort: mildly labored Ascultation: Bilateral: diminished breath sounds, rhonchi Percussion: Bilateral: not dull Cardiovascular: regular rate and rhythm, other (S1,S2) Gastrointestinal: normoactive bowel sounds, soft, non-tender, non-distended (protuberant) Integumentary: normal Extremities: no cyanosis, no edema, pulses normal, no ischemia or petechiae Neurologic: pupils equal and round, unable to assess, other (sedated) Psychiatric: other (unable to assess re: AMS) CBC and BMP: 10/04/20 14:16 10/05/20 05:04 ABG, PT/INR, D-dimer: ABG ABG pH 7.410 (7.320-7.450) 10/03/20 05:22 POC ABG pCO2 40.6 mmHg (32.0-48.0) 10/03/20 05:22 POC ABG pO2 74.3 mmHg (83-108) L 10/03/20 05:22 POC ABG HCO3 25.2 10/03/20 05:22 ABG O2 Saturation 93.5 (0-100) 10/03/20 05:22 PT/INR, D-dimer PT 15.3 Sec. (12.2-14.9) H 10/02/20 01:01 INR 1.16 (0.87-1.13) H 10/02/20 01:01 D-Dimer 1023.48 ng/mlDDU (0-234) H 10/02/20 11:47 Abnormal lab findings: Abnormal Labs 10/02/20 10/02/20 10/02/20 01:01 01:01 01:01 RBC 5.04 H MCV 81 L MCH 27 L Seg Neuts % (Manual) 85.0 H Lymphocytes % (Manual) 1.0 L Monocytes % (Manual) 11.0 H Nucleated RBC % 1.0 H Seg Neutrophils # Man 9.4 H Lymphocytes # (Manual) 0.1 L Monocytes # (Manual) 1.2 H PT 15.3 H INR 1.16 H Thrombin Time 23.2 H D-Dimer POC ABG pO2 ABG Oxyhemoglobin ABG Sodium ABG Chloride ABG Glucose Carboxyhemoglobin Sodium 133 L Chloride 85.1 L BUN 66 H Creatinine 5.6 H Glucose 292 H POC Glucose Ferritin AST 173 H ALT 139 H Lactate Dehydrogenase Total Creatine Kinase 2544 H CK-MB (CK-2) 14.8 H Troponin T 0.036 H C-Reactive Protein Albumin 3.3 L Triglycerides 427 H HDL Cholesterol 31 L Arterial Blood Glucose Urine WBC (Auto) Urine Creatinine Coronavirus (PCR) 10/02/20 10/02/20 10/02/20 02:59 03:51 11:47 RBC MCV MCH Seg Neuts % (Manual) Lymphocytes % (Manual) Monocytes % (Manual) Nucleated RBC % Seg Neutrophils # Man Lymphocytes # (Manual) Monocytes # (Manual) PT INR Thrombin Time D-Dimer POC ABG pO2 55.2 L ABG Oxyhemoglobin 85.4 L ABG Sodium 132.0 L ABG Chloride 89.0 L ABG Glucose 372 H Carboxyhemoglobin Sodium Chloride BUN Creatinine Glucose POC Glucose Ferritin AST ALT Lactate Dehydrogenase Total Creatine Kinase 2548 H CK-MB (CK-2) Troponin T C-Reactive Protein Albumin Triglycerides HDL Cholesterol Arterial Blood Glucose 372 H Urine WBC (Auto) 8.0 H Urine Creatinine Coronavirus (PCR) 10/02/20 10/02/20 10/02/20 11:47 11:47 11:47 RBC MCV MCH Seg Neuts % (Manual) Lymphocytes % (Manual) Monocytes % (Manual) Nucleated RBC % Seg Neutrophils # Man Lymphocytes # (Manual) Monocytes # (Manual) PT INR Thrombin Time D-Dimer 1023.48 H POC ABG pO2 ABG Oxyhemoglobin ABG Sodium ABG Chloride ABG Glucose Carboxyhemoglobin Sodium Chloride BUN Creatinine Glucose POC Glucose Ferritin 8643.0 H AST ALT Lactate Dehydrogenase 828 H Total Creatine Kinase CK-MB (CK-2) Troponin T C-Reactive Protein 13.60 H Albumin Triglycerides HDL Cholesterol Arterial Blood Glucose Urine WBC (Auto) Urine Creatinine Coronavirus (PCR) 10/02/20 10/02/20 10/02/20 18:48 23:51 Unknown RBC MCV MCH Seg Neuts % (Manual) Lymphocytes % (Manual) Monocytes % (Manual) Nucleated RBC % Seg Neutrophils # Man Lymphocytes # (Manual) Monocytes # (Manual) PT INR Thrombin Time D-Dimer POC ABG pO2 ABG Oxyhemoglobin ABG Sodium ABG Chloride ABG Glucose Carboxyhemoglobin Sodium Chloride BUN Creatinine Glucose POC Glucose 441 H 457 H Ferritin AST ALT Lactate Dehydrogenase Total Creatine Kinase CK-MB (CK-2) Troponin T C-Reactive Protein Albumin Triglycerides HDL Cholesterol Arterial Blood Glucose Urine WBC (Auto) Urine Creatinine Coronavirus (PCR) Positive A 10/03/20 10/03/20 10/03/20 05:22 05:25 05:25 RBC MCV MCH Seg Neuts % (Manual) Lymphocytes % (Manual) Monocytes % (Manual) Nucleated RBC % Seg Neutrophils # Man Lymphocytes # (Manual) Monocytes # (Manual) PT INR Thrombin Time D-Dimer POC ABG pO2 74.3 L ABG Oxyhemoglobin 93.2 L ABG Sodium 133.6 L ABG Chloride 92.0 L ABG Glucose 399 H Carboxyhemoglobin 0.3 L Sodium 135 L Chloride 88.0 L BUN 102 H Creatinine 7.5 H Glucose 383 H POC Glucose Ferritin AST 71 H ALT 88 H Lactate Dehydrogenase Total Creatine Kinase 1597 H CK-MB (CK-2) Troponin T C-Reactive Protein Albumin 2.6 L Triglycerides HDL Cholesterol Arterial Blood Glucose 399 H Urine WBC (Auto) Urine Creatinine Coronavirus (PCR) 10/03/20 10/03/20 10/03/20 06:09 06:30 09:06 RBC MCV MCH Seg Neuts % (Manual) Lymphocytes % (Manual) Monocytes % (Manual) Nucleated RBC % Seg Neutrophils # Man Lymphocytes # (Manual) Monocytes # (Manual) PT INR Thrombin Time D-Dimer POC ABG pO2 ABG Oxyhemoglobin ABG Sodium ABG Chloride ABG Glucose Carboxyhemoglobin Sodium Chloride BUN Creatinine Glucose POC Glucose 360 H 298 H Ferritin AST ALT Lactate Dehydrogenase Total Creatine Kinase CK-MB (CK-2) Troponin T C-Reactive Protein Albumin Triglycerides HDL Cholesterol Arterial Blood Glucose Urine WBC (Auto) Urine Creatinine 156.1 H Coronavirus (PCR) 10/03/20 10/03/20 10/03/20 13:07 16:37 21:32 RBC MCV MCH Seg Neuts % (Manual) Lymphocytes % (Manual) Monocytes % (Manual) Nucleated RBC % Seg Neutrophils # Man Lymphocytes # (Manual) Monocytes # (Manual) PT INR Thrombin Time D-Dimer POC ABG pO2 ABG Oxyhemoglobin ABG Sodium ABG Chloride ABG Glucose Carboxyhemoglobin Sodium Chloride BUN Creatinine Glucose POC Glucose 243 H 229 H 169 H Ferritin AST ALT Lactate Dehydrogenase Total Creatine Kinase CK-MB (CK-2) Troponin T C-Reactive Protein Albumin Triglycerides HDL Cholesterol Arterial Blood Glucose Urine WBC (Auto) Urine Creatinine Coronavirus (PCR) 10/03/20 23:09 RBC MCV MCH Seg Neuts % (Manual) Lymphocytes % (Manual) Monocytes % (Manual) Nucleated RBC % Seg Neutrophils # Man Lymphocytes # (Manual) Monocytes # (Manual) PT INR Thrombin Time D-Dimer POC ABG pO2 ABG Oxyhemoglobin ABG Sodium ABG Chloride ABG Glucose Carboxyhemoglobin Sodium Chloride BUN Creatinine Glucose POC Glucose 150 H Ferritin AST ALT Lactate Dehydrogenase Total Creatine Kinase CK-MB (CK-2) Troponin T C-Reactive Protein Albumin Triglycerides HDL Cholesterol Arterial Blood Glucose Urine WBC (Auto) Urine Creatinine Coronavirus (PCR) Chest x-ray: image reviewed Allied health notes reviewed: RT
[2020-10-04] MEDS: fentaNYL DRIP Premix 2,000 MCG/100 ML BAG IV SCH ×4 (05:41→22:50)
[2020-10-04] MEDS: HEPARIN 5,000 UNIT/1 ML VIAL SUB-Q SCH (05:42)
[2020-10-04 06:32] LABS: Mean Corpuscular HGB Conc 33 % (32-34); Mean Corpuscular Volume 82 fl (84-94); Platelet Count 244 K/mm3 (140-440); Red Blood Count 4.37 M/mm3 (3.65-5.03); Red Cell Distribution Width 14.2 % (13.2-15.2)
[2020-10-04 06:44] LABS: Albumin 2.6 g/dL (3.9-5); Calcium 8.8 mg/dL (8.4-10.2)
[2020-10-04] MEDS: SODIUM CHLORIDE 0.9% 1000 ML 1,000 ML IV SCH ×2 (08:07→15:52)
[2020-10-04] MEDS: SENNOSIDES/DOCUSATE SODIUM 8.6/50 MG TAB FEEDTUBE SCH ×2 (10:58→21:00)
[2020-10-04] MEDS: ACETAMINOPHEN 325 MG TAB PO PRN (10:58)
[2020-10-04] MEDS: FAMOTIDINE 20 MG/2 ML INJ IV SCH (10:59)
[2020-10-04 11:10] LABS: C-Reactive Protein 16.4 mg/dL (0.00-1.30)
--- NOTE | 2020-10-04 11:52 | Progress Note ---
Assessment and Plan Assessment and Plan - Patient Problems # Respiratory failure -Possibly secondary to the underlying pneumonia. -Patient has been intubated and sedated. # Acute encephalopathy -multifactorial -R/O Seizure EEG showed diffuse slowing with no sign of seizure - Ct brain is remarkable for left frontal hypodensity -Need MRI brain wo gd due to ESRD might require with GD ? -R/O CVA # Elevated CK -Patient placed on IV fluid. -We will monitor CK levels. -CPK #2544 # Acute renal failure -Patient placed on IV fluid normal saline. -BUN/Cr#66/5.6 # COVID-19 -Patient has been placed on isolation precautions. -Patient started on IV steroid. # Pneumonia -Possibly secondary to COVID-19. -Patient commenced on empiric IV antibiotics and IV steroid. # HLP -elevated LDL and triglycerid -treat as indicated -elevated liver enzymes and inflammatory markers # DVT prophylaxis -Patient placed on subcutaneous heparin. #Full code status -Patient is full code. PLAN 1-Cut down sedation 2- brain MRI 3- Treat underlying infection 4- Correct electrolytes and renal function will follow as needed Subjective Date of service: 10/04/20 Principal diagnosis: elevated inflammatory markers, COVID positive,ESRD on dialysis Interval history: status is unchanged he is intubated and sedated MRI is pending had dialysis yesterday he is on fentanyl 2 mc Objective - Vital Sign Vital Signs - 12hr 10/03/20 10/03/20 10/04/20 23:51 23:57 00:00 Temperature Pulse Rate 72 76 Respiratory 22 25 H Rate Blood Pressure 169/87 O2 Sat by Pulse 95 Oximetry 10/04/20 10/04/20 10/04/20 00:01 00:04 00:11 Temperature Pulse Rate 89 77 75 Respiratory 21 23 21 Rate Blood Pressure 191/102 191/102 191/102 O2 Sat by Pulse 97 97 92 Oximetry 10/04/20 10/04/20 10/04/20 00:21 00:30 00:41 Temperature Pulse Rate 79 78 78 Respiratory 22 21 23 Rate Blood Pressure 158/84 154/85 154/85 O2 Sat by Pulse 92 91 91 Oximetry 10/04/20 10/04/20 10/04/20 00:51 00:57 01:00 Temperature Pulse Rate 78 78 Respiratory 24 20 21 Rate Blood Pressure 138/93 157/85 O2 Sat by Pulse 93 91 Oximetry 10/04/20 10/04/20 10/04/20 01:11 01:21 01:30 Temperature Pulse Rate 77 77 75 Respiratory 19 20 20 Rate Blood Pressure 157/85 149/84 145/80 O2 Sat by Pulse 90 93 97 Oximetry 10/04/20 10/04/20 10/04/20 01:41 01:45 01:51 Temperature Pulse Rate 76 72 Respiratory 21 23 Rate Blood Pressure 145/80 148/80 O2 Sat by Pulse 90 92 93 Oximetry 10/04/20 10/04/20 10/04/20 02:00 02:11 02:21 Temperature Pulse Rate 74 72 72 Respiratory 22 23 24 Rate Blood Pressure 150/82 150/82 155/84 O2 Sat by Pulse 92 95 94 Oximetry 10/04/20 10/04/20 10/04/20 02:30 02:41 02:47 Temperature 102.7 F H Pulse Rate 91 H 78 Respiratory 26 H 16 Rate Blood Pressure 173/95 173/95 O2 Sat by Pulse 96 96 Oximetry 10/04/20 10/04/20 10/04/20 02:51 03:00 03:11 Temperature Pulse Rate 76 73 75 Respiratory 24 24 24 Rate Blood Pressure 167/87 166/87 166/87 O2 Sat by Pulse 94 95 95 Oximetry 10/04/20 10/04/20 10/04/20 03:21 03:30 03:40 Temperature Pulse Rate 84 78 74 Respiratory 25 H 25 H 2 L Rate Blood Pressure 159/86 163/85 147/79 O2 Sat by Pulse 95 94 94 Oximetry 10/04/20 10/04/20 10/04/20 03:41 03:51 04:00 Temperature Pulse Rate 76 76 75 Respiratory 25 H 22 22 Rate Blood Pressure 163/85 151/81 140/76 O2 Sat by Pulse 96 92 91 Oximetry 10/04/20 10/04/20 10/04/20 04:11 04:21 04:30 Temperature Pulse Rate 74 74 74 Respiratory 23 22 24 Rate Blood Pressure 140/76 147/79 150/81 O2 Sat by Pulse 93 94 95 Oximetry 10/04/20 10/04/20 10/04/20 04:41 04:51 05:00 Temperature Pulse Rate 86 85 82 Respiratory 26 H 22 25 H Rate Blood Pressure 150/81 165/93 133/75 O2 Sat by Pulse 94 95 94 Oximetry 10/04/20 10/04/20 10/04/20 05:11 05:21 05:30 Temperature Pulse Rate 79 79 80 Respiratory 25 H 24 24 Rate Blood Pressure 133/75 125/72 135/75 O2 Sat by Pulse 94 94 93 Oximetry 10/04/20 10/04/20 10/04/20 05:41 05:45 05:51 Temperature Pulse Rate 80 78 79 Respiratory 24 23 Rate Blood Pressure 133/75 138/78 O2 Sat by Pulse 93 92 94 Oximetry 10/04/20 10/04/20 10/04/20 06:00 06:11 06:21 Temperature Pulse Rate 78 78 79 Respiratory 21 22 22 Rate Blood Pressure 131/73 131/73 129/73 O2 Sat by Pulse 92 90 90 Oximetry 10/04/20 10/04/20 10/04/20 06:30 06:41 06:50 Temperature Pulse Rate 77 79 79 Respiratory 20 22 21 Rate Blood Pressure 123/72 123/72 124/72 O2 Sat by Pulse 92 91 90 Oximetry 10/04/20 10/04/20 10/04/20 07:00 07:11 07:21 Temperature Pulse Rate 78 77 75 Respiratory 22 23 23 Rate Blood Pressure 119/72 124/72 128/75 O2 Sat by Pulse 92 91 92 Oximetry 10/04/20 10/04/20 10/04/20 07:22 07:30 07:41 Temperature 101.2 F H Pulse Rate 75 75 Respiratory 22 23 Rate Blood Pressure 123/72 123/72 O2 Sat by Pulse 92 92 Oximetry 10/04/20 10/04/20 10/04/20 07:51 08:00 08:11 Temperature Pulse Rate 84 82 81 Respiratory 26 H 25 H 23 Rate Blood Pressure 145/86 150/84 150/84 O2 Sat by Pulse 94 91 91 Oximetry 10/04/20 10/04/20 10/04/20 08:21 08:30 08:41 Temperature Pulse Rate 81 79 77 Respiratory 24 23 23 Rate Blood Pressure 139/81 138/79 150/84 O2 Sat by Pulse 92 92 94 Oximetry 10/04/20 10/04/20 10/04/20 08:45 08:51 09:00 Temperature Pulse Rate 76 78 76 Respiratory 21 24 Rate Blood Pressure 125/74 125/74 127/74 O2 Sat by Pulse 94 93 94 Oximetry 10/04/20 10/04/20 10/04/20 09:11 09:21 09:30 Temperature Pulse Rate 76 76 75 Respiratory 22 22 21 Rate Blood Pressure 127/74 125/74 129/76 O2 Sat by Pulse 94 94 Oximetry 10/04/20 10/04/20 10/04/20 09:41 09:51 10:00 Temperature Pulse Rate 73 82 73 Respiratory 20 21 23 Rate Blood Pressure 129/76 123/73 131/76 O2 Sat by Pulse 93 89 91 Oximetry 10/04/20 10/04/20 10/04/20 10:11 10:21 10:30 Temperature Pulse Rate 75 72 71 Respiratory 21 20 20 Rate Blood Pressure 131/76 125/74 128/72 O2 Sat by Pulse 88 92 94 Oximetry 10/04/20 10/04/20 10/04/20 10:41 10:51 11:01 Temperature Pulse Rate 71 90 89 Respiratory 19 14 27 H Rate Blood Pressure 128/72 121/75 168/97 O2 Sat by Pulse 93 100 98 Oximetry 10/04/20 10/04/20 10/04/20 11:11 11:21 11:30 Temperature Pulse Rate 91 H 79 78 Respiratory 27 H 22 20 Rate Blood Pressure 168/97 166/94 128/73 O2 Sat by Pulse 90 91 93 Oximetry 10/04/20 11:44 Temperature 100.5 F H Pulse Rate Respiratory Rate Blood Pressure O2 Sat by Pulse Oximetry - General Apperance Constitutional: comfortable - EENT EENT: PERRL, mucous membranes moist - Respiratory Respiratory: chest non-tender, lungs clear, rhonchi - Cardiovascular Cardiovascular: regular rate, normal S1, normal S2 Extremities: no peripheral edema bilat, no clubbing, cyanosis - Gastrointestinal Gastrointestinal: normoactive bowel sounds - Integumentary Integumentary: normal - Neurologic Cranial nerve examination: PERRL, EOMI, ptosis, intact Detailed motor examination: other (slight withdrwal both upper and lower to pain stimuli) - Laboratory Findings CBC and BMP: 10/04/20 04:58 10/04/20 04:58 Abnormal Lab Findings: Abnormal Labs 10/02/20 10/02/20 10/02/20 01:01 01:01 01:01 WBC RBC 5.04 H MCV 81 L MCH 27 L Seg Neuts % (Manual) 85.0 H Lymphocytes % (Manual) 1.0 L Monocytes % (Manual) 11.0 H Nucleated RBC % 1.0 H Seg Neutrophils # Man 9.4 H Lymphocytes # (Manual) 0.1 L Monocytes # (Manual) 1.2 H PT 15.3 H INR 1.16 H Thrombin Time 23.2 H D-Dimer POC ABG pO2 ABG Oxyhemoglobin ABG Sodium ABG Chloride ABG Glucose Carboxyhemoglobin Sodium 133 L Chloride 85.1 L BUN 66 H Creatinine 5.6 H Glucose 292 H POC Glucose Phosphorus Ferritin AST 173 H ALT 139 H Lactate Dehydrogenase Total Creatine Kinase 2544 H CK-MB (CK-2) 14.8 H Troponin T 0.036 H C-Reactive Protein Albumin 3.3 L Triglycerides 427 H HDL Cholesterol 31 L PTH Intact Arterial Blood Glucose Arterial Blood Ionized Calcium Urine WBC (Auto) Urine Creatinine Coronavirus (PCR) 10/02/20 10/02/20 10/02/20 02:59 03:51 11:47 WBC RBC MCV MCH Seg Neuts % (Manual) Lymphocytes % (Manual) Monocytes % (Manual) Nucleated RBC % Seg Neutrophils # Man Lymphocytes # (Manual) Monocytes # (Manual) PT INR Thrombin Time D-Dimer POC ABG pO2 55.2 L ABG Oxyhemoglobin 85.4 L ABG Sodium 132.0 L ABG Chloride 89.0 L ABG Glucose 372 H Carboxyhemoglobin Sodium Chloride BUN Creatinine Glucose POC Glucose Phosphorus Ferritin AST ALT Lactate Dehydrogenase Total Creatine Kinase 2548 H CK-MB (CK-2) Troponin T C-Reactive Protein Albumin Triglycerides HDL Cholesterol PTH Intact Arterial Blood Glucose 372 H Arterial Blood Ionized Calcium Urine WBC (Auto) 8.0 H Urine Creatinine Coronavirus (PCR) 10/02/20 10/02/20 10/02/20 11:47 11:47 11:47 WBC RBC MCV MCH Seg Neuts % (Manual) Lymphocytes % (Manual) Monocytes % (Manual) Nucleated RBC % Seg Neutrophils # Man Lymphocytes # (Manual) Monocytes # (Manual) PT INR Thrombin Time D-Dimer 1023.48 H POC ABG pO2 ABG Oxyhemoglobin ABG Sodium ABG Chloride ABG Glucose Carboxyhemoglobin Sodium Chloride BUN Creatinine Glucose POC Glucose Phosphorus Ferritin 8643.0 H AST ALT Lactate Dehydrogenase 828 H Total Creatine Kinase CK-MB (CK-2) Troponin T C-Reactive Protein 13.60 H Albumin Triglycerides HDL Cholesterol PTH Intact Arterial Blood Glucose Arterial Blood Ionized Calcium Urine WBC (Auto) Urine Creatinine Coronavirus (PCR) 10/02/20 10/02/20 10/02/20 18:48 23:51 Unknown WBC RBC MCV MCH Seg Neuts % (Manual) Lymphocytes % (Manual) Monocytes % (Manual) Nucleated RBC % Seg Neutrophils # Man Lymphocytes # (Manual) Monocytes # (Manual) PT INR Thrombin Time D-Dimer POC ABG pO2 ABG Oxyhemoglobin ABG Sodium ABG Chloride ABG Glucose Carboxyhemoglobin Sodium Chloride BUN Creatinine Glucose POC Glucose 441 H 457 H Phosphorus Ferritin AST ALT Lactate Dehydrogenase Total Creatine Kinase CK-MB (CK-2) Troponin T C-Reactive Protein Albumin Triglycerides HDL Cholesterol PTH Intact Arterial Blood Glucose Arterial Blood Ionized Calcium Urine WBC (Auto) Urine Creatinine Coronavirus (PCR) Positive A 10/03/20 10/03/20 10/03/20 05:22 05:25 05:25 WBC RBC MCV MCH Seg Neuts % (Manual) Lymphocytes % (Manual) Monocytes % (Manual) Nucleated RBC % Seg Neutrophils # Man Lymphocytes # (Manual) Monocytes # (Manual) PT INR Thrombin Time D-Dimer POC ABG pO2 74.3 L ABG Oxyhemoglobin 93.2 L ABG Sodium 133.6 L ABG Chloride 92.0 L ABG Glucose 399 H Carboxyhemoglobin 0.3 L Sodium 135 L Chloride 88.0 L BUN 102 H Creatinine 7.5 H Glucose 383 H POC Glucose Phosphorus Ferritin AST 71 H ALT 88 H Lactate Dehydrogenase Total Creatine Kinase 1597 H CK-MB (CK-2) Troponin T C-Reactive Protein Albumin 2.6 L Triglycerides HDL Cholesterol PTH Intact Arterial Blood Glucose 399 H Arterial Blood Ionized Calcium Urine WBC (Auto) Urine Creatinine Coronavirus (PCR) 10/03/20 10/03/20 10/03/20 06:09 06:30 09:06 WBC RBC MCV MCH Seg Neuts % (Manual) Lymphocytes % (Manual) Monocytes % (Manual) Nucleated RBC % Seg Neutrophils # Man Lymphocytes # (Manual) Monocytes # (Manual) PT INR Thrombin Time D-Dimer POC ABG pO2 ABG Oxyhemoglobin ABG Sodium ABG Chloride ABG Glucose Carboxyhemoglobin Sodium Chloride BUN Creatinine Glucose POC Glucose 360 H 298 H Phosphorus Ferritin AST ALT Lactate Dehydrogenase Total Creatine Kinase CK-MB (CK-2) Troponin T C-Reactive Protein Albumin Triglycerides HDL Cholesterol PTH Intact Arterial Blood Glucose Arterial Blood Ionized Calcium Urine WBC (Auto) Urine Creatinine 156.1 H Coronavirus (PCR) 10/03/20 10/03/20 10/03/20 13:07 16:37 21:32 WBC RBC MCV MCH Seg Neuts % (Manual) Lymphocytes % (Manual) Monocytes % (Manual) Nucleated RBC % Seg Neutrophils # Man Lymphocytes # (Manual) Monocytes # (Manual) PT INR Thrombin Time D-Dimer POC ABG pO2 ABG Oxyhemoglobin ABG Sodium ABG Chloride ABG Glucose Carboxyhemoglobin Sodium Chloride BUN Creatinine Glucose POC Glucose 243 H 229 H 169 H Phosphorus Ferritin AST ALT Lactate Dehydrogenase Total Creatine Kinase CK-MB (CK-2) Troponin T C-Reactive Protein Albumin Triglycerides HDL Cholesterol PTH Intact Arterial Blood Glucose Arterial Blood Ionized Calcium Urine WBC (Auto) Urine Creatinine Coronavirus (PCR) 10/03/20 10/04/20 10/04/20 23:09 03:26 04:58 WBC RBC MCV MCH Seg Neuts % (Manual) Lymphocytes % (Manual) Monocytes % (Manual) Nucleated RBC % Seg Neutrophils # Man Lymphocytes # (Manual) Monocytes # (Manual) PT INR Thrombin Time D-Dimer POC ABG pO2 77.8 L ABG Oxyhemoglobin ABG Sodium ABG Chloride ABG Glucose Carboxyhemoglobin 0.1 L Sodium Chloride 97.1 L BUN 112 H Creatinine 8.2 H Glucose 70 L POC Glucose 150 H Phosphorus 8.10 H Ferritin AST 50 H ALT 66 H Lactate Dehydrogenase Total Creatine Kinase 983 H CK-MB (CK-2) Troponin T C-Reactive Protein Albumin 2.6 L Triglycerides HDL Cholesterol PTH Intact Arterial Blood Glucose Arterial Blood Ionized Calcium 4.5 L Urine WBC (Auto) Urine Creatinine Coronavirus (PCR) 10/04/20 10/04/20 10/04/20 04:58 04:58 09:59 WBC 15.7 H RBC MCV 82 L MCH Seg Neuts % (Manual) Lymphocytes % (Manual) Monocytes % (Manual) Nucleated RBC % Seg Neutrophils # Man Lymphocytes # (Manual) Monocytes # (Manual) PT INR Thrombin Time D-Dimer 2287.60 H POC ABG pO2 ABG Oxyhemoglobin ABG Sodium ABG Chloride ABG Glucose Carboxyhemoglobin Sodium Chloride BUN Creatinine Glucose POC Glucose Phosphorus Ferritin AST ALT Lactate Dehydrogenase Total Creatine Kinase CK-MB (CK-2) Troponin T C-Reactive Protein Albumin Triglycerides HDL Cholesterol PTH Intact 140.3 H Arterial Blood Glucose Arterial Blood Ionized Calcium Urine WBC (Auto) Urine Creatinine Coronavirus (PCR) 10/04/20 10/04/20 10/04/20 09:59 09:59 11:35 WBC RBC MCV MCH Seg Neuts % (Manual) Lymphocytes % (Manual) Monocytes % (Manual) Nucleated RBC % Seg Neutrophils # Man Lymphocytes # (Manual) Monocytes # (Manual) PT INR Thrombin Time D-Dimer POC ABG pO2 ABG Oxyhemoglobin ABG Sodium ABG Chloride ABG Glucose Carboxyhemoglobin Sodium Chloride BUN Creatinine Glucose POC Glucose 126 H Phosphorus Ferritin > 2000.0 H AST ALT Lactate Dehydrogenase 735 H Total Creatine Kinase CK-MB (CK-2) Troponin T C-Reactive Protein 16.40 H Albumin Triglycerides HDL Cholesterol PTH Intact Arterial Blood Glucose Arterial Blood Ionized Calcium Urine WBC (Auto) Urine Creatinine Coronavirus (PCR)
--- NOTE | 2020-10-04 12:01 | XRay Report ---
ABDOMEN 1 VIEW(S) 10/04/2020 10:52 AM INDICATION / CLINICAL INFORMATION: NGT PLACEMENT. COMPARISON: None available. FINDINGS: The tip of an esophagogastric tube projects over the junction of second and third portion duodenum. Signer Name: Roderick Dias MD Signed: 10/04/2020 11:56 AM Workstation Name: [id number]
[2020-10-04] MEDS ORDERED: SIMPLE SYRUP 15 ML FEEDTUBE PRN ×2 (12:06)
[2020-10-04] MEDS ORDERED: LIPASE 10,500/PROTEASE 25,000/AMYLASE 43,750 (UNITS) DR CAP FEEDTUBE PRN (12:06)
[2020-10-04] MEDS ORDERED: SODIUM BICARBONATE 325 MG TAB FEEDTUBE PRN (12:06)
--- NOTE | 2020-10-04 12:14 | Progress Note ---
Assessment and Plan 1. Acute kidney injury: OLIVIA in the setting of severe Covid infection. Received IV contrast 10/02. FeNa low. Renal US negative for hydro. Monitor renal function. BUN and Creatinine level continue to increase. Avoid nephrotoxic agents. Meds dosage based on GFR. Monitor for [employer] needs. Patient need hemodialysis due to above. Requested for Vascath placement. Hemodialysis today. 2. FEN: Monitor lytes and volume status. 3. Acute respiratory failure with hypoxemia: 2/2 Covid PNA. Currently on vent, wean as tolerated. 4. Covid PNA: Followed by ID. 5. Acute encephalopathy, POA: Multifactorial. R/O Seizure. CT brain remarkable for left frontal hypodensity. EEG suggestive of encephalopathy. R/O CVA. 6. Rhabdomyolysis: Trend CK, improving. 7. Elevated ALT & AST: Trend. 8. DM type 2: Monitor. Subjective: Patient was seen and examined at the bedside. Examination: General appearance: well-developed, appears stated age, intubated on vent HEENT: atraumatic, no icterus, pupils equal Neck: trachea midline Respiratory: MV sounds Heart: S1S2, regular, no murmur Abdomen: soft, bowel sounds heard, NT Integumentary: no obvious rash Neurologic: not responding Ext: edema : Blanchard catheter Subjective Date of service: 10/04/20 Principal diagnosis: elevated inflammatory markers, COVID positive,ESRD on dialysis Objective - Vital Signs Vital signs: Vital Signs - 12hr 10/04/20 10/04/20 10/04/20 00:11 00:21 00:30 Temperature Pulse Rate 75 79 78 Respiratory 21 22 21 Rate Blood Pressure 191/102 158/84 154/85 O2 Sat by Pulse 92 92 91 Oximetry 10/04/20 10/04/20 10/04/20 00:41 00:51 00:57 Temperature Pulse Rate 78 78 Respiratory 23 24 20 Rate Blood Pressure 154/85 138/93 O2 Sat by Pulse 91 93 Oximetry 10/04/20 10/04/20 10/04/20 01:00 01:11 01:21 Temperature Pulse Rate 78 77 77 Respiratory 21 19 20 Rate Blood Pressure 157/85 157/85 149/84 O2 Sat by Pulse 91 90 93 Oximetry 10/04/20 10/04/20 10/04/20 01:30 01:41 01:45 Temperature Pulse Rate 75 76 Respiratory 20 21 Rate Blood Pressure 145/80 145/80 O2 Sat by Pulse 97 90 92 Oximetry 10/04/20 10/04/20 10/04/20 01:51 02:00 02:11 Temperature Pulse Rate 72 74 72 Respiratory 23 22 23 Rate Blood Pressure 148/80 150/82 150/82 O2 Sat by Pulse 93 92 95 Oximetry 10/04/20 10/04/20 10/04/20 02:21 02:30 02:41 Temperature Pulse Rate 72 91 H 78 Respiratory 24 26 H 16 Rate Blood Pressure 155/84 173/95 173/95 O2 Sat by Pulse 94 96 96 Oximetry 10/04/20 10/04/20 10/04/20 02:47 02:51 03:00 Temperature 102.7 F H Pulse Rate 76 73 Respiratory 24 24 Rate Blood Pressure 167/87 166/87 O2 Sat by Pulse 94 95 Oximetry 10/04/20 10/04/20 10/04/20 03:11 03:21 03:30 Temperature Pulse Rate 75 84 78 Respiratory 24 25 H 25 H Rate Blood Pressure 166/87 159/86 163/85 O2 Sat by Pulse 95 95 94 Oximetry 10/04/20 10/04/20 10/04/20 03:40 03:41 03:51 Temperature Pulse Rate 74 76 76 Respiratory 2 L 25 H 22 Rate Blood Pressure 147/79 163/85 151/81 O2 Sat by Pulse 94 96 92 Oximetry 10/04/20 10/04/20 10/04/20 04:00 04:11 04:21 Temperature Pulse Rate 75 74 74 Respiratory 22 23 22 Rate Blood Pressure 140/76 140/76 147/79 O2 Sat by Pulse 91 93 94 Oximetry 10/04/20 10/04/20 10/04/20 04:30 04:41 04:51 Temperature Pulse Rate 74 86 85 Respiratory 24 26 H 22 Rate Blood Pressure 150/81 150/81 165/93 O2 Sat by Pulse 95 94 95 Oximetry 10/04/20 10/04/20 10/04/20 05:00 05:11 05:21 Temperature Pulse Rate 82 79 79 Respiratory 25 H 25 H 24 Rate Blood Pressure 133/75 133/75 125/72 O2 Sat by Pulse 94 94 94 Oximetry 10/04/20 10/04/20 10/04/20 05:30 05:41 05:45 Temperature Pulse Rate 80 80 78 Respiratory 24 24 Rate Blood Pressure 135/75 133/75 O2 Sat by Pulse 93 93 92 Oximetry 10/04/20 10/04/20 10/04/20 05:51 06:00 06:11 Temperature Pulse Rate 79 78 78 Respiratory 23 21 22 Rate Blood Pressure 138/78 131/73 131/73 O2 Sat by Pulse 94 92 90 Oximetry 10/04/20 10/04/20 10/04/20 06:21 06:30 06:41 Temperature Pulse Rate 79 77 79 Respiratory 22 20 22 Rate Blood Pressure 129/73 123/72 123/72 O2 Sat by Pulse 90 92 91 Oximetry 10/04/20 10/04/20 10/04/20 06:50 07:00 07:11 Temperature Pulse Rate 79 78 77 Respiratory 21 22 23 Rate Blood Pressure 124/72 119/72 124/72 O2 Sat by Pulse 90 92 91 Oximetry 10/04/20 10/04/20 10/04/20 07:21 07:22 07:30 Temperature 101.2 F H Pulse Rate 75 75 Respiratory 23 22 Rate Blood Pressure 128/75 123/72 O2 Sat by Pulse 92 92 Oximetry 10/04/20 10/04/20 10/04/20 07:41 07:51 08:00 Temperature Pulse Rate 75 84 82 Respiratory 23 26 H 25 H Rate Blood Pressure 123/72 145/86 150/84 O2 Sat by Pulse 92 94 91 Oximetry 10/04/20 10/04/20 10/04/20 08:11 08:21 08:30 Temperature Pulse Rate 81 81 79 Respiratory 23 24 23 Rate Blood Pressure 150/84 139/81 138/79 O2 Sat by Pulse 91 92 92 Oximetry 10/04/20 10/04/20 10/04/20 08:41 08:45 08:51 Temperature Pulse Rate 77 76 78 Respiratory 23 21 Rate Blood Pressure 150/84 125/74 125/74 O2 Sat by Pulse 94 94 93 Oximetry 10/04/20 10/04/20 10/04/20 09:00 09:11 09:21 Temperature Pulse Rate 76 76 76 Respiratory 24 22 22 Rate Blood Pressure 127/74 127/74 125/74 O2 Sat by Pulse 94 94 94 Oximetry 10/04/20 10/04/20 10/04/20 09:30 09:41 09:51 Temperature Pulse Rate 75 73 82 Respiratory 21 20 21 Rate Blood Pressure 129/76 129/76 123/73 O2 Sat by Pulse 93 89 Oximetry 10/04/20 10/04/20 10/04/20 10:00 10:11 10:21 Temperature Pulse Rate 73 75 72 Respiratory 23 21 20 Rate Blood Pressure 131/76 131/76 125/74 O2 Sat by Pulse 91 88 92 Oximetry 10/04/20 10/04/20 10/04/20 10:30 10:41 10:51 Temperature Pulse Rate 71 71 90 Respiratory 20 19 14 Rate Blood Pressure 128/72 128/72 121/75 O2 Sat by Pulse 94 93 100 Oximetry 10/04/20 10/04/20 10/04/20 11:01 11:11 11:21 Temperature Pulse Rate 89 91 H 79 Respiratory 27 H 27 H 22 Rate Blood Pressure 168/97 168/97 166/94 O2 Sat by Pulse 98 90 91 Oximetry 10/04/20 10/04/20 11:30 11:44 Temperature 100.5 F H Pulse Rate 78 Respiratory 20 Rate Blood Pressure 128/73 O2 Sat by Pulse 93 Oximetry - Lab 10/04/20 04:58 10/04/20 04:58 Most recent lab results ABG pH 7.427 (7.320-7.450) 10/04/20 03:26 ABG O2 Saturation 95.4 (0-100) 10/04/20 03:26 Calcium 8.8 mg/dL (8.4-10.2) 10/04/20 04:58 Phosphorus 8.10 mg/dL (2.5-4.5) H 10/04/20 04:58 Urine Creatinine 156.1 mg/dL (0.1-20.0) H 10/03/20 06:30 Urine Sodium 22 mmol/L 10/03/20 06:30 Medications & Allergies - Medications Allergies/Adverse Reactions: Allergies No Known Allergies Allergy (Verified 10/02/20 01:44) Active Medications: Generic Name Dose Route Start Last Admin Trade Name Freq PRN Reason Stop Dose Admin Acetaminophen 650 mg 10/02/20 05:23 10/04/20 10:58 Acetaminophen 325 Mg Tab PO 650 mg Q6H PRN Administration Pain MILD(1-3)/Fever >100.5/[place] Lipase/Protease/Amylase 1 each 10/04/20 12:06 Lipase 10,500/Protease 25,000/Amylase 43,750 (Units) Dr Cap FEEDTUBE PRN PRN For Clogged Feeding Tube Bisacodyl 10 mg 10/02/20 05:23 Bisacodyl 10 Mg Rect Supp NC QDAY PRN Constipation Dexamethasone 6 mg 10/03/20 04:00 10/04/20 04:37 Dexamethasone 4 Mg/Ml Vial IV 10/12/20 04:01 6 mg Q24H MUSTAPHA Administration Dextrose 50 ml 10/02/20 06:44 Dextrose 50% In Water (25gm) 50 Ml Syringe IV Q30MIN PRN Hypoglycemia Protocol Famotidine 20 mg 10/02/20 10:00 10/04/20 10:59 Famotidine 20 Mg/2 Ml Inj IV 20 mg DAILY MUSTAPHA Administration Fentanyl 50 mcg 10/02/20 00:53 Fentanyl 100 Mcg/2 Ml Inj IV Q10MIN PRN ANALGESIA Heparin Sodium (Porcine) 5,000 unit 10/02/20 06:00 10/04/20 05:42 Heparin 5,000 Unit/1 Ml Vial SUB-Q 5,000 unit Q8HR MUSTAPHA Administration Hydrophilic Ointment 1 applic 10/02/20 00:53 Lip Therapy Vaseline TP Q2HR PRN Dry Lips Fentanyl Citrate 2,000 mcg in 100 mls @ 4.2 mls/hr 10/02/20 01:00 10/04/20 11:34 Fentanyl Drip Premix IV 4 mcg/kg/hr TITR MUSTAPHA 16.8 mls/hr Administration Protocol 1 MCG/KG/HR Propofol 1,000 mg in 100 mls @ 2.52 mls/hr 10/02/20 03:00 10/04/20 08:07 Diprivan 10 Mg/Ml IV 25 mcg/kg/min TITR MUSTAPHA 12.6 mls/hr Administration Protocol 5 MCG/KG/MIN Sodium Chloride 1,000 mls @ 125 mls/hr 10/02/20 05:30 10/04/20 08:07 Nacl 0.9% 1000 Ml IV 125 mls/hr DIRECT MUSTAPHA Administration Ceftriaxone Sodium 2 gm in 100 mls @ 200 mls/hr 10/03/20 03:30 10/04/20 04:36 Rocephin/Ns 2 Gm/100 Ml IV 10/07/20 03:59 200 mls/hr Q24H MUSTAPHA Administration Protocol Azithromycin 500 mg in 250 mls @ 250 mls/hr 10/03/20 04:00 10/04/20 04:36 Zithromax/Ns IV 10/07/20 04:59 250 mls/hr Q24H MUSTAPHA Administration Protocol TOCILIZUMAB 600 mg/ Sodium 130 mls @ 120 mls/hr 10/03/20 10:33 Chloride IV 10/03/20 11:37 ONCE ONE Insulin Glargine 20 units 10/03/20 22:00 10/03/20 21:52 Insulin Glargine 100 Units/Ml SUB-Q 20 units QHS MUSTAPHA Administration Insulin Human Lispro 0 unit 10/02/20 12:00 10/04/20 05:12 Insulin Lispro 100 Unit/Ml SUB-Q Not Given Q6HR [facility] Protocol Magnesium Hydroxide 30 ml 10/02/20 05:23 Magnesium Hydroxide (Mom) Oral Liqd Udc PO Q4H PRN Constipation Metoclopramide HCl 5 mg 10/02/20 05:53 Metoclopramide 10 Mg Tab PO Q6H PRN Nausea And Vomiting Midazolam HCl 2 mg 10/02/20 09:48 Midazolam 2 Mg/2 Ml Inj IV Q10MIN PRN Sedation Multi-Ingred Cream/Lotion/Oil/Oint 1 applic 10/02/20 00:53 Mineral Oil/Petrolatum, White Ophth Oint 3.5 Gm OU Q4HR PRN Dry Eye(s) Ondansetron HCl 4 mg 10/02/20 05:23 Ondansetron 4 Mg/2 Ml Inj IV Q8H PRN Nausea And Vomiting Promethazine HCl 25 mg 10/02/20 05:23 Promethazine 25 Mg Rect Supp NC Q6H PRN Nausea And Vomiting Senna/Docusate Sodium 1 tab 10/02/20 22:00 10/04/20 10:58 Sennosides/Docusate Sodium 8.6/50 Mg Tab FEEDTUBE 1 tab BID MUSTAPHA Administration Simple Syrup 15 ml 10/04/20 12:06 Simple Syrup 15 Ml FEEDTUBE PRN PRN Hypoglycemia Simple Syrup 30 ml 10/04/20 12:06 Simple Syrup 15 Ml FEEDTUBE PRN PRN Hypoglycemia Sodium Bicarbonate 325 mg 10/04/20 12:06 Sodium Bicarbonate 325 Mg Tab FEEDTUBE PRN PRN For Clogged Feeding Tube Sodium Chloride 10 ml 10/02/20 10:00 08/07/21 10:58 Sodium Chloride 0.9% 10 Ml Flush Syringe IV 10 ml BID MUSTAPHA Administration Sodium Chloride 10 ml 10/02/20 05:23 Sodium Chloride 0.9% 10 Ml Flush Syringe IV PRN PRN LINE FLUSH
[2020-10-04] MEDS ORDERED: SODIUM CHLORIDE 0.9% 100 ML IV PRN (12:18)
[2020-10-04] MEDS ORDERED: HEPARIN 10,000 UNITS/10 ML VIAL IV PRN ×2 (12:18→12:51)
--- NOTE | 2020-10-04 12:18 | Event Note ---
Date: 10/04/20 Patient require hemodialysis. D/w his sister over the phone about the indications, benefits, risks and alternatives involved in hemodialysis. She voiced understanding and gave verbal consent. Per his sister's request I also talked to patient's friend Ms.Tanya EDOUARD @ [phone].
--- NOTE | 2020-10-04 12:46 | Progress Note ---
Assessment and Plan Assessment and plan: 50-year-old male with known history of hypertension and diabetes mellitus brought into the emergency room by EMS for altered mental status and difficulty breathing. Patient was said to have been found at home unresponsive and last well-known time was about 8 PM on 09/30/2020. Patient's family indicates that patient was sitting in the recliner at about 8 PM on 09/30/2020 and was subsequently found in the same position today. Was said to have had some vomitus on his clothes and unresponsive. Patient was diagnosed with COVID-19 about a week ago. Most of the history was obtained from the ER staff. A code stroke was called while in the emergency room and CT scan of the head was subsequently ordered. Neurologist was also consulted . No further history was obtainable from patient as he is already intubated and sedated. Family members not available at this time. Work-up in the emergency room today, labs reveal total creatinine kinase of 2554, elevated liver enzymes, elevated troponin, BUN and creatinine of [address] scan of the head shows up to subcortical white matter hypodensity in the right frontal lobe. No acute bleed Chest x-ray reveals bilateral pneumonia 10/03: Patient continues on full ventilator support. Continues on steroids. Recommend Actemra given elevated CRP and intubation. Continue to monitor renal function. Staff Electrical Engineer following patient may need dialysis support but will defer to sport psychologist. Will adjust insulin for better blood sugar control. GI input noted: LFT improving, consistent with combination of mild ischemic hepatitis and related to his covid infection, Hepatic synthetic function intact continue supportive care, avoid hepatotoxins and liver enzymes should continue to gradually normalize" Neurologist input is also noted recommending an MRI for further evaluation of abnormal CT head finding. 10/04: Patient seen and examined. D-dimer is elevated. Will start on heparin drip until final embolism is ruled out and DVT is ruled out. Will check creatinine kinase to ensure improvement in the rhabdomyolysis. Called family, unable to Obtain AND COULD NOT LEAVE A MESSAGE PER NURSE PATIENT DOES WAKE UP (1) Acute hypoxic respiratory failure (2) Acute encephalopathy (3) Acute renal failure secondary to COVID-19 with underlying vasomotor nephropathy (4) COVID-19 Current Visit: Yes Status: Acute Plan to address problem: Patient has been placed on isolation precautions. Patient started on IV steroid. Consult placed to infectious disease for further recommendations. (5) acute rhabdomyolysis Current Visit: Yes Status: Acute Plan to address problem: Patient placed on IV fluid. We will monitor CK levels. Will await further evaluation and recommendations from nephrology. (6) Pneumonia Current Visit: Yes Status: Acute Qualifiers: Pneumonia type: due to unspecified organism Laterality: bilateral Lung location: unspecified part of lung Qualified Code(s): J18.9 - Pneumonia, uns pecified organism Plan to address problem: Possibly secondary to COVID-19. Patient commenced on empiric IV antibiotics and IV steroid. We await evaluation by infectious disease. (7) hyperglycemia possible underlining diabetes mellitus (8) DVT prophylaxis Current Visit: Yes Status: Acute Plan to address problem: Patient placed on subcutaneous heparin. (9) abnormal CT head (10)full code status Current Visit: Yes Status: Acute Plan to address problem: Patient is full code. The high probability of a clinically significant, sudden or life threatening deterioration of the [PULMONARY, NEUROLOGY] system(s) required my full and direct attention, intervention and personal management. The aggregate critical care time was [35] minutes. This time is in addition to time spent performing reported procedures but includes the following: [X] Data Review and interpretation [X] Patient assessment and monitoring of vital signs [X] Documentation [X] Medication orders and management History Interval history: Patient seen and examined remains on full ventilatory support. Discussed with nursing staff reports that patient when awake moves all extremities follows some commands. No fever documented. Family had called requesting for update however no one picked up on a call back. Hospitalist Physical - Physical exam Narrative exam: General appearance: Present: other (Intubated and sedated) - EENT Eyes: Present: PERRL, EOM intact. Absent: scleral icterus ENT: hearing intact, clear oral mucosa, dentition normal - Neck Neck: Present: supple, normal ROM - Respiratory Respiratory effort: other (Currently intubated on the vent) Respiratory: bilateral: diminished - Cardiovascular Rhythm: regular Heart Sounds: Present: S1 & S2. Absent: gallop, systolic murmur, diastolic murmur, rub, click - Extremities Extremities: no ischemia, pulses intact, pulses symmetrical, No edema, normal temperature, normal color, Full ROM Peripheral Pulses: within normal limits - Abdominal General gastrointestinal: Present: soft, non-tender, non-distended, normal bowel sounds. Absent: mass - Musculoskeletal Musculoskeletal: strength equal bilaterally - Psychiatric Psychiatric: cooperative - Neurologic Neurologic: no focal deficits - Constitutional Vitals: Temp Pulse Resp BP Pulse Ox 100.5 F H 78 20 128/73 93 10/04/20 11:44 10/04/20 11:30 10/04/20 11:30 10/04/20 11:30 10/04/20 11:30 General appearance: Present: other (Intubated and sedated) HEART Score - HEART Score Troponin: Troponin T 0.036 ng/mL (0.00-0.029) H 10/02/20 01:01 Results - Labs CBC & Chem 7: 10/04/20 14:16 10/04/20 04:58 Labs: Laboratory Last Values WBC 15.7 K/mm3 (4.5-11.0) H 10/04/20 04:58 RBC 4.37 M/mm3 (3.65-5.03) 10/04/20 04:58 Hgb 12.0 gm/dl (11.8-15.2) 10/04/20 04:58 Hct 36.0 % (35.5-45.6) 10/04/20 04:58 MCV 82 fl (84-94) L 10/04/20 04:58 MCH 28 pg (28-32) 10/04/20 04:58 MCHC 33 % (32-34) 10/04/20 04:58 RDW 14.2 % (13.2-15.2) 10/04/20 04:58 Plt Count 244 K/mm3 (140-440) 10/04/20 04:58 Add Manual Diff Complete 10/02/20 01:01 Total Counted 100 10/02/20 01:01 Seg Neuts % (Manual) 85.0 % (40.0-70.0) H 10/02/20 01:01 Band Neutrophils % 3.0 % 10/02/20 01:01 Lymphocytes % (Manual) 1.0 % (13.4-35.0) L 10/02/20 01:01 Monocytes % (Manual) 11.0 % (0.0-7.3) H 10/02/20 01:01 Nucleated RBC % 1.0 % (0.0-0.9) H 10/02/20 01:01 Seg Neutrophils # Man 9.4 K/mm3 (1.8-7.7) H 10/02/20 01:01 Band Neutrophils # 0.3 K/mm3 10/02/20 01:01 Lymphocytes # (Manual) 0.1 K/mm3 (1.2-5.4) L 10/02/20 01:01 Abs React Lymphs (Man) 0.0 K/mm3 10/02/20 01:01 Monocytes # (Manual) 1.2 K/mm3 (0.0-0.8) H 10/02/20 01:01 Eosinophils # (Manual) 0.0 K/mm3 (0.0-0.4) 10/02/20 01:01 Basophils # (Manual) 0.0 K/mm3 (0.0-0.1) 10/02/20 01:01 Metamyelocytes # 0.0 K/mm3 10/02/20 01:01 Myelocytes # 0.0 K/mm3 10/02/20 01:01 Promyelocytes # 0.0 K/mm3 10/02/20 01:01 Blast Cells # 0.0 K/mm3 10/02/20 01:01 WBC Morphology Not Reportable 10/02/20 01:01 Hypersegmented Neuts Not Reportable 10/02/20 01:01 Hyposegmented Neuts Not Reportable 10/02/20 01:01 Hypogranular Neuts Not Reportable 10/02/20 01:01 Smudge Cells Not Reportable 10/02/20 01:01 Toxic Granulation Not Reportable 10/02/20 01:01 Toxic Vacuolation Not Reportable 10/02/20 01:01 Dohle Bodies Not Reportable 10/02/20 01:01 Pelger-Huet Anomaly Not Reportable 10/02/20 01:01 Yohan Rods Not Reportable 10/02/20 01:01 Platelet Estimate Consistent w auto 10/02/20 01:01 Clumped Platelets Not Reportable 10/02/20 01:01 Plt Clumps, EDTA Not Reportable 10/02/20 01:01 Large Platelets Few 10/02/20 01:01 Giant Platelets Not Reportable 10/02/20 01:01 Platelet Satelliting Not Reportable 10/02/20 01:01 Plt Morphology Comment Not Reportable 10/02/20 01:01 RBC Morphology Not Reportable 10/02/20 01:01 Dimorphic RBCs Not Reportable 10/02/20 01:01 Polychromasia Not Reportable 10/02/20 01:01 Hypochromasia Not Reportable 10/02/20 01:01 Poikilocytosis Not Reportable 10/02/20 01:01 Anisocytosis 1+ 10/02/20 01:01 Microcytosis Not Reportable 10/02/20 01:01 Macrocytosis Not Reportable 10/02/20 01:01 Spherocytes Not Reportable 10/02/20 01:01 Pappenheimer Bodies Not Reportable 10/02/20 01:01 Sickle Cells Not Reportable 10/02/20 01:01 Target Cells Not Reportable 10/02/20 01:01 Tear Drop Cells Not Reportable 10/02/20 01:01 Ovalocytes Not Reportable 10/02/20 01:01 Helmet Cells Not Reportable 10/02/20 01:01 De Guzman-Comstock Bodies Not Reportable 10/02/20 01:01 Winton Rings Not Reportable 10/02/20 01:01 Harrod Cells Not Reportable 10/02/20 01:01 Bite Cells Not Reportable 10/02/20 01:01 Crenated Cell Not Reportable 10/02/20 01:01 Elliptocytes Not Reportable 10/02/20 01:01 Acanthocytes (Spur) Not Reportable 10/02/20 01:01 Rouleaux Not Reportable 10/02/20 01:01 Hemoglobin C Crystals Not Reportable 10/02/20 01:01 Schistocytes Not Reportable 10/02/20 01:01 Malaria parasites Not Reportable 10/02/20 01:01 Shekhar Bodies Not Reportable 10/02/20 01:01 Hem Pathologist Commnt No 10/02/20 01:01 PT 15.3 Sec. (12.2-14.9) H 10/02/20 01:01 INR 1.16 (0.87-1.13) H 10/02/20 01:01 APTT 30.9 Sec. (24.2-36.6) 10/02/20 01:01 Thrombin Time 23.2 Sec. (15.1-19.6) H 10/02/20 01:01 D-Dimer 2287.60 ng/mlDDU (0-234) H 10/04/20 09:59 ABG pH 7.427 (7.320-7.450) 10/04/20 03:26 POC ABG pCO2 35.7 mmHg (32.0-48.0) 10/04/20 03:26 POC ABG pO2 77.8 mmHg (83-108) L 10/04/20 03:26 POC ABG HCO3 23.0 10/04/20 03:26 ABG O2 Saturation 95.4 (0-100) 10/04/20 03:26 POC ABG Base Excess -0.9 10/04/20 03:26 ABG Hemoglobin 13.0 (12.0-17.5) 10/04/20 03:26 ABG Oxyhemoglobin 95.0 (94-98) 10/04/20 03:26 ABG Methemoglobin 0.3 (0.0-1.5) 10/04/20 03:26 ABG Sodium 137.9 mmol/L (136.0-145.0) 10/04/20 03:26 ABG Potassium 3.5 mmol/L (3.40-4.50) 10/04/20 03:26 ABG Chloride 101.0 mmol/L (98-107) 10/04/20 03:26 ABG Glucose 80 mg/dL (65-95) 10/04/20 03:26 Carboxyhemoglobin 0.1 (0.5-1.5) L 10/04/20 03:26 FiO2 % 100.0 10/04/20 03:26 Sodium 143 mmol/L (137-145) D 10/04/20 04:58 Potassium 3.7 mmol/L (3.6-5.0) 10/04/20 04:58 Chloride 97.1 mmol/L (98-107) L 10/04/20 04:58 Carbon Dioxide 22 mmol/L (22-30) 10/04/20 04:58 Anion Gap 28 mmol/L 10/04/20 04:58 BUN 112 mg/dL (9-20) H 10/04/20 04:58 Creatinine 8.2 mg/dL (0.8-1.3) H 10/04/20 04:58 Estimated GFR 8 ml/min 10/04/20 04:58 BUN/Creatinine Ratio 14 % 10/04/20 04:58 Glucose 70 mg/dL (75-100) L 10/04/20 04:58 POC Glucose 126 mg/dL (70-105) H 10/04/20 11:35 Calcium 8.8 mg/dL (8.4-10.2) 10/04/20 04:58 Phosphorus 8.10 mg/dL (2.5-4.5) H 10/04/20 04:58 Ferritin > 2000.0 ng/mL (30.0-300.0) H 10/04/20 09:59 Total Bilirubin 0.50 mg/dL (0.1-1.2) 10/04/20 04:58 Direct Bilirubin < 0.2 mg/dL (0-0.2) 10/03/20 05:25 Indirect Bilirubin 0.1 mg/dL 10/03/20 05:25 AST 50 units/L (5-40) H 10/04/20 04:58 ALT 66 units/L (7-56) H 10/04/20 04:58 Alkaline Phosphatase 68 units/L (35-129) 10/04/20 04:58 Lactate Dehydrogenase 735 units/L (91-180) H 10/04/20 09:59 Total Creatine Kinase 983 units/L (55-170) H 10/04/20 04:58 CK-MB (CK-2) 14.8 ng/mL (0.0-4.0) H 10/02/20 01:01 CK-MB (CK-2) Rel Index 0.5 (0-4) 10/02/20 01:01 Troponin T 0.036 ng/mL (0.00-0.029) H 10/02/20 01:01 C-Reactive Protein 16.40 mg/dL (0.00-1.30) H 10/04/20 09:59 Total Protein 6.5 g/dL (6.3-8.2) 10/04/20 04:58 Albumin 2.6 g/dL (3.9-5) L 10/04/20 04:58 Albumin/Globulin Ratio 0.7 % 10/04/20 04:58 Triglycerides 427 mg/dL (2-149) H 10/02/20 01:01 Cholesterol 165 mg/dL (50-199) 10/02/20 01:01 LDL Cholesterol Direct TNR 10/02/20 01:01 HDL Cholesterol 31 mg/dL (40-59) L 10/02/20 01:01 Cholesterol/HDL Ratio 5.32 % 10/02/20 01:01 Procalcitonin 18.80 ng/mL (<0.15) 10/02/20 11:47 PTH Intact 140.3 pg/mL (15-65) H 10/04/20 04:58 Arterial Blood Glucose 80 mg/dL (65-95) 10/04/20 03:26 Arterial Blood Ionized Calcium 4.5 mg/dL (4.6-5.3) L 10/04/20 03:26 Urine Color Alison (Yellow) 10/02/20 02:59 Urine Turbidity Cloudy (Clear) 10/02/20 02:59 Urine pH 5.0 (5.0-7.0) 10/02/20 02:59 Ur Specific Raphine 1.025 (1.003-1.030) 10/02/20 02:59 Urine Protein >500 mg/dL (Negative) 10/02/20 02:59 Urine Glucose (UA) 50 mg/dL (Negative) 10/02/20 02:59 Urine Ketones Neg mg/dL (Negative) 10/02/20 02:59 Urine Blood Lg (Negative) 10/02/20 02:59 Urine Nitrite Neg (Negative) 10/02/20 02:59 Urine Bilirubin Neg (Negative) 10/02/20 02:59 Urine Urobilinogen < 2.0 mg/dL (<2.0) 10/02/20 02:59 Ur Leukocyte Esterase Neg (Negative) 10/02/20 02:59 Urine WBC (Auto) 8.0 /HPF (0.0-6.0) H 10/02/20 02:59 Urine RBC (Auto) 3.0 /HPF (0.0-6.0) 10/02/20 02:59 U Epithel Cells (Auto) 2.0 /HPF (0-13.0) 10/02/20 02:59 Amorphous Crystals Few 10/02/20 02:59 Urine Mucus Few /HPF 10/02/20 02:59 Urine Creatinine 156.1 mg/dL (0.1-20.0) H 10/03/20 06:30 Urine Sodium 22 mmol/L 10/03/20 06:30 Urine Opiates Screen Negative 10/02/20 02:59 Urine Methadone Screen Negative 10/02/20 02:59 Ur Barbiturates Screen Negative 10/02/20 02:59 Ur Phencyclidine Scrn Negative 10/02/20 02:59 Ur Amphetamines Screen Negative 10/02/20 02:59 U Benzodiazepines Scrn Negative 10/02/20 02:59 Urine Cocaine Screen Negative 10/02/20 02:59 U Marijuana (THC) Screen Negative 10/02/20 02:59 Drugs of Abuse Note Disclamer 10/02/20 02:59 Plasma/Serum Alcohol < 0.01 % (0-0.07) 10/02/20 01:01 Coronavirus (PCR) Positive (Negative) A 10/02/20 Unknown Hepatitis A IgM Ab Non-reactive (NonReactive) 10/02/20 01:01 Hep Bs Antigen Non-reactive (Negative) 10/02/20 01:01 Hep B Core IgM Ab Non-reactive (NonReactive) 10/02/20 01:01 Hepatitis C Antibody Non-reactive (NonReactive) 10/02/20 01:01 Microbiology: Microbiology 10/02/20 01:18 Peripheral/Venous Blood Culture - Preliminary NO GROWTH AFTER 48 HOURS 10/02/20 01:13 Peripheral/Venous Blood Culture - Preliminary NO GROWTH AFTER 48 HOURS 10/02/20 00:53 Tracheal Aspirate Sputum Culture - Final Blanchard/IV: Voiding Method Indwelling Catheter Active Medications - Current Medications Current Medications: Generic Name Dose Route Start Last Admin Trade Name Freq PRN Reason Stop Dose Admin Acetaminophen 650 mg 10/02/20 05:23 10/04/20 10:58 Acetaminophen 325 Mg Tab PO 650 mg Q6H PRN Administration Pain MILD(1-3)/Fever >100.5/CLIFTON Lipase/Protease/Amylase 1 each 10/04/20 12:06 Lipase 10,500/Protease 25,000/Amylase 43,750 (Units) Cap FEEDTUBE PRN PRN For Clogged Feeding Tube Bisacodyl 10 mg 10/02/20 05:23 Bisacodyl 10 Mg Rect Supp HI QDAY PRN Constipation Dexamethasone 6 mg 10/03/20 04:00 10/04/20 04:37 Dexamethasone 4 Mg/Ml Vial IV 10/12/20 04:01 6 mg Q24H MUSTAPHA Administration Dextrose 50 ml 10/02/20 06:44 Dextrose 50% In Water (25gm) 50 Ml Syringe IV Q30MIN PRN Hypoglycemia Protocol Famotidine 20 mg 10/02/20 10:00 10/04/20 10:59 Famotidine 20 Mg/2 Ml Inj IV 20 mg DAILY MUSTAPHA Administration Fentanyl 50 mcg 10/02/20 00:53 Fentanyl 100 Mcg/2 Ml Inj IV Q10MIN PRN ANALGESIA Heparin Sodium (Porcine) 5,000 unit 10/02/20 06:00 10/04/20 05:42 Heparin 5,000 Unit/1 Ml Vial SUB-Q 5,000 unit Q8HR MUSTAPHA Administration Heparin Sodium (Porcine) 2,000 unit 10/04/20 12:18 Heparin 10,000 Units/10 Ml Vial IV RADHA PRN hemodialysis Hydrophilic Ointment 1 applic 10/02/20 00:53 Lip Therapy Vaseline TP Q2HR PRN Dry Lips Fentanyl Citrate 2,000 mcg in 100 mls @ 4.2 mls/hr 10/02/20 01:00 10/04/20 11:34 Fentanyl Drip Premix IV 4 mcg/kg/hr TITR MUSTAPHA 16.8 mls/hr Administration Protocol 1 MCG/KG/HR Propofol 1,000 mg in 100 mls @ 2.52 mls/hr 10/02/20 03:00 10/04/20 08:07 Diprivan 10 Mg/Ml IV 25 mcg/kg/min TITR MUSTAPHA 12.6 mls/hr Administration Protocol 5 MCG/KG/MIN Sodium Chloride 1,000 mls @ 125 mls/hr 10/02/20 05:30 10/04/20 08:07 Nacl 0.9% 1000 Ml IV 125 mls/hr DIRECT MUSTAPHA Administration Ceftriaxone Sodium 2 gm in 100 mls @ 200 mls/hr 10/03/20 03:30 10/04/20 04:36 Rocephin/Ns 2 Gm/100 Ml IV 10/07/20 03:59 200 mls/hr Q24H MUSTAPHA Administration Protocol Azithromycin 500 mg in 250 mls @ 250 mls/hr 10/03/20 04:00 10/04/20 04:36 Zithromax/Ns IV 10/07/20 04:59 250 mls/hr Q24H MUSTAPHA Administration Protocol TOCILIZUMAB 600 mg/ Sodium 130 mls @ 120 mls/hr 10/03/20 10:33 Chloride IV 10/03/20 11:37 ONCE ONE Sodium Chloride 100 mls @ 999 mls/hr 10/04/20 12:18 Nacl 0.9% IV RADHA PRN Hypotension Insulin Glargine 20 units 10/03/20 22:00 10/03/20 21:52 Insulin Glargine 100 Units/Ml SUB-Q 20 units QHS MUSTAPHA Administration Insulin Human Lispro 0 unit 10/02/20 12:00 10/04/20 05:12 Insulin Lispro 100 Unit/Ml SUB-Q Not Given Q6HR [facility] Protocol Magnesium Hydroxide 30 ml 10/02/20 05:23 Magnesium Hydroxide (Mom) Oral Liqd Udc PO Q4H PRN Constipation Metoclopramide HCl 5 mg 10/02/20 05:53 Metoclopramide 10 Mg Tab PO Q6H PRN Nausea And Vomiting Midazolam HCl 2 mg 10/02/20 09:48 Midazolam 2 Mg/2 Ml Inj IV Q10MIN PRN Sedation Multi-Ingred Cream/Lotion/Oil/Oint 1 applic 10/02/20 00:53 Mineral Oil/Petrolatum, White Ophth Oint 3.5 Gm OU Q4HR PRN Dry Eye(s) Ondansetron HCl 4 mg 10/02/20 05:23 Ondansetron 4 Mg/2 Ml Inj IV Q8H PRN Nausea And Vomiting Promethazine HCl 25 mg 10/02/20 05:23 Promethazine 25 Mg Rect Supp HI Q6H PRN Nausea And Vomiting Senna/Docusate Sodium 1 tab 10/02/20 22:00 10/04/20 10:58 Sennosides/Docusate Sodium 8.6/50 Mg Tab FEEDTUBE 1 tab BID MUSTAPHA Administration Simple Syrup 15 ml 10/04/20 12:06 Simple Syrup 15 Ml FEEDTUBE PRN PRN Hypoglycemia Simple Syrup 30 ml 10/04/20 12:06 Simple Syrup 15 Ml FEEDTUBE PRN PRN Hypoglycemia Sodium Bicarbonate 325 mg 10/04/20 12:06 Sodium Bicarbonate 325 Mg Tab FEEDTUBE PRN PRN For Clogged Feeding Tube Sodium Chloride 10 ml 10/02/20 10:00 10/04/20 10:58 Sodium Chloride 0.9% 10 Ml Flush Syringe IV 10 ml BID MUSTAPHA Administration Sodium Chloride 10 ml 10/02/20 05:23 Sodium Chloride 0.9% 10 Ml Flush Syringe IV PRN PRN LINE FLUSH Nutrition/Malnutrition Assess - Dietary Evaluation Nutrition/Malnutrition Findings: Nutrition Notes Start: 10/02/20 07:33 Freq: Status: Active Protocol: Document 10/04/20 11:54 CW (Rec: 10/04/20 12:06 CW [id number]) Nutrition Notes Need for Assessment generated from: MD Order Initial or Follow up Reassessment Current Diagnosis Acute Kidney Injury,Diabetes, Hypertension,Respiratory Failure Other Pertinent Diagnosis pneu, COVID Current Diet NPO Labs/Tests BUN 112 Cr 8.2 BG 70 phos 8.1 Pertinent Medications senokot NS at 125 ml/hr propofol at 12.6ml/hr (333 kcal) decadron Lantus Height 5 ft 10.8 in Weight 84 kg Canon Body Weight (kg) 77.63 BMI 25.9 Weight Status Overweight Subjective/Other Information MD consult for write/manage TF . Pt remains on mechanical vent. Renal functioning worsening. Recommend Nepro. Percent of energy/protein needs met: 0%/0% Burn Absent Trauma Absent Current % PO Negligible Minimum of two criteria No physical signs of malnutrition #1 Nutrition Diagnosis Inadequate oral intake Diagnosis Progress(for reassessment Continues documentation) Is patient on ventilator? Yes Is Patient Ambulatory and/or Out of Bed No REE-([facility]-confined to bed) 2059.61 Calculation Used for Recommendations [facility] Additional Notes Protein: (1.2-2g/kg) 101-168g Fluid: 1 ml/kcal or per MD Nutrition Intervention Change Diet Order: Initiate TF Nutrition Support: Nepro at 40 ml/hr. Free water flush of 225 ml q4h Kcal 1,728 Protein (gm) 78 Fluid (mL) 698 Goal #1 Initiate TF regimen Goal #2 Meet at least 75% of EER via TF Anticipated Discharge Needs: unable to determine at this time Follow-Up By: 10/06/20 Additional Comments F/U for TF at goal and tolerance
[2020-10-04 14:52] LABS: Hematocrit 35.2 % (35.5-45.6); Hemoglobin 11.6 gm/dl (11.8-15.2)
[2020-10-04 15:11] LABS: INR 1.12 (0.87-1.13); Partial Thromboplastin Time 28.5 Sec. (24.2-36.6)
[2020-10-04] MEDS: HEPARIN/ 0.45% NACL DRIP 25,000 UNIT/500 ML BAG IV SCH (15:47)
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
--- NOTE | 2020-10-04 21:03 | XRay Report ---
CHEST 1 VIEW 10/04/2020 8:05 PM INDICATION / CLINICAL INFORMATION: Trialysate /HD catheter placemet. COMPARISON: 12:29 AM today FINDINGS: SUPPORT DEVICES: New right IJ trialysis catheter projects over SVC. ET tube and NG tube again project in expected position HEART / MEDIASTINUM: Remains enlarged LUNGS / PLEURA: Moderate multifocal bilateral parenchymal disease has slightly worsened. No pneumotho rax. ADDITIONAL FINDINGS: No significant additional findings. IMPRESSION: 1. Worsening bilateral pneumonia Signer Name: Roderick Dias MD Signed: 10/04/2020 8:58 PM Workstation Name: [id number]
[2020-10-04] MEDS: INSULIN GLARGINE 100 UNITS/ML SUB-Q SCH (21:43)
[2020-10-05] MEDS: INSULIN LISPRO 100 UNIT/ML SUB-Q SCH ×5 (00:30→22:11)
[2020-10-05] MEDS: cefTRIAXone/NS 2 GM/100 ML 2 GM/100 ML BAG IV SCH (02:32)
[2020-10-05] MEDS: fentaNYL DRIP Premix 2,000 MCG/100 ML BAG IV SCH ×3 (04:09→17:02)
[2020-10-05] MEDS: dexAMETHasone 4 MG/ML VIAL IV SCH (04:10)
[2020-10-05] MEDS: AZITHROMYCIN/NS 500 MG/250 ML 500 MG/250 ML BAG IV SCH (04:11)
[2020-10-05 06:31] LABS: Calcium 9.1 mg/dL (8.4-10.2)
--- NOTE | 2020-10-05 07:59 | Progress Note ---
Assessment and Plan Assessment and plan: 50-year-old male with known history of hypertension and diabetes mellitus brought into the emergency room by EMS for altered mental status and difficulty breathing. Patient was said to have been found at home unresponsive and last well-known time was about 8 PM on 09/30/2020. Patient's family indicates that patient was sitting in the recliner at about 8 PM on 09/30/2020 and was subsequently found in the same position today. Was said to have had some vomitus on his clothes and unresponsive. Patient was diagnosed with COVID-19 about a week ago. Most of the history was obtained from the ER staff. A code stroke was called while in the emergency room and CT scan of the head was subsequently ordered. Neurologist was also consulted . No further history was obtainable from patient as he is already intubated and sedated. Family members not available at this time. Work-up in the emergency room today, labs reveal total creatinine kinase of 2554, elevated liver enzymes, elevated troponin, BUN and creatinine of [address] scan of the head shows up to subcortical white matter hypodensity in the right frontal lobe. No acute bleed Chest x-ray reveals bilateral pneumonia 10/03: Patient continues on full ventilator support. Continues on steroids. Recommend Actemra given elevated CRP and intubation. Continue to monitor renal function. Air Gun Operator following patient may need dialysis support but will defer to division leader. Will adjust insulin for better blood sugar control. GI input noted: LFT improving, consistent with combination of mild ischemic hepatitis and related to his covid infection, Hepatic synthetic function intact continue supportive care, avoid hepatotoxins and liver enzymes should continue to gradually normalize" Neurologist input is also noted recommending an MRI for further evaluation of abnormal CT head finding. 10/04: Patient seen and examined. D-dimer is elevated. Will start on heparin drip until final embolism is ruled out and DVT is ruled out. Will check creatinine kinase to ensure improvement in the rhabdomyolysis. Called family, unable to Obtain AND COULD NOT LEAVE A MESSAGE PER NURSE PATIENT DOES WAKE UP 10/05: Patient seen and examined, remains on full ventilatory support. Rhabdomylsis, improving, Patient started on HD, Awaiting MRI for further evaluation. CXR done yesterday showed worsening bilateral infiltrate. ID input noted, Patient still following commands some when off sedation. - Continue Dexamethasone. - Awaiting Acetmara- Out of stock for now in the hospital - Renal function precludes Remdesivir - Continue heparin drip considering elevated D.dimer till VTE ruled out. (1) Acute hypoxic respiratory failure (2) Acute encephalopathy (3) Acute renal failure secondary to COVID-19 with underlying vasomotor nephropathy (4) Acute Spesis seconday to (5) COVID-19 Current Visit: Yes Status: Acute Plan to address problem: Patient has been placed on isolation precautions. Patient started on IV steroid. Consult placed to infectious disease for further recommendations. (6) Acute rhabdomyolysis Resolved with hydration (7) Pneumonia Current Visit: Yes Status: Acute Qualifiers: Pneumonia type: due to unspecified organism Laterality: bilateral Lung location: unspecified part of lung Qualified Code(s): J18.9 - Pneumonia, unspecified organism Plan to address problem: Possibly secondary to COVID-19. Patient commenced on empiric IV antibiotics and IV steroid. We await evaluation by infectious disease. (8) Hyperglycemia possible underlining diabetes mellitus (9) Abnormal CT head (10) DVT prophylaxis Current Visit: Yes Status: Acute Plan to address problem: Patient placed on subcutaneous heparin. (11)full code status Current Visit: Yes Status: Acute Plan to address problem: Patient is full code. The high probability of a clinically significant, sudden or life threatening deterioration of the [PULMONARY, NEUROLOGY] system(s) required my full and direct attention, intervention and personal management. The aggregate critical care time was [35] minutes. This time is in addition to time spent performing reported procedures but includes the following: [X] Data Review and interpretation [X] Patient assessment and monitoring of vital signs [X] Documentation [X] Medication orders and management History Interval history: Patient seen and examined remains on full ventilatory support. Family had called requesting for update however no one picked up on a call back. Hospitalist Physical - Physical exam Narrative exam: General appearance: Present: other (Intubated and sedated) - EENT Eyes: Present: PERRL, EOM intact. Absent: scleral icterus ENT: hearing intact, clear oral mucosa, dentition normal - Neck Neck: Present: supple, normal ROM - Respiratory Respiratory effort: other (Currently intubated on the vent) Respiratory: bilateral: diminished - Cardiovascular Rhythm: regular Heart Sounds: Present: S1 & S2. Absent: gallop, systolic murmur, diastolic murmur, rub, click - Extremities Extremities: no ischemia, pulses intact, pulses symmetrical, No edema, normal temperature, normal color, Full ROM Peripheral Pulses: within normal limits - Abdominal General gastrointestinal: Present: soft, non-tender, non-distended, normal bowel sounds. Absent: mass - Musculoskeletal Musculoskeletal: strength equal bilaterally - Psychiatric Psychiatric: cooperative - Neurologic Neurologic: no focal deficits - Constitutional Vitals: Temp Pulse Resp BP Pulse Ox 97.2 F L 63 20 118/59 96 10/05/20 07:35 10/05/20 07:31 10/05/20 07:30 10/05/20 07:31 10/05/20 07:31 General appearance: Present: other (Intubated and sedated) HEART Score - HEART Score Troponin: Troponin T 0.036 ng/mL (0.00-0.029) H 10/02/20 01:01 Results - Labs CBC & Chem 7: 10/04/20 14:16 10/05/20 05:04 Labs: Laboratory Last Values WBC 15.7 K/mm3 (4.5-11.0) H 10/04/20 04:58 RBC 4.37 M/mm3 (3.65-5.03) 10/04/20 04:58 Hgb 11.6 gm/dl (11.8-15.2) L 10/04/20 14:16 Hct 35.2 % (35.5-45.6) L 10/04/20 14:16 MCV 82 fl (84-94) L 10/04/20 04:58 MCH 28 pg (28-32) 10/04/20 04:58 MCHC 33 % (32-34) 10/04/20 04:58 RDW 14.2 % (13.2-15.2) 10/04/20 04:58 Plt Count 241 K/mm3 (140-440) 10/04/20 14:16 Add Manual Diff Complete 10/02/20 01:01 Total Counted 100 10/02/20 01:01 Seg Neuts % (Manual) 85.0 % (40.0-70.0) H 10/02/20 01:01 Band Neutrophils % 3.0 % 10/02/20 01:01 Lymphocytes % (Manual) 1.0 % (13.4-35.0) L 10/02/20 01:01 Monocytes % (Manual) 11.0 % (0.0-7.3) H 10/02/20 01:01 Nucleated RBC % 1.0 % (0.0-0.9) H 10/02/20 01:01 Seg Neutrophils # Man 9.4 K/mm3 (1.8-7.7) H 10/02/20 01:01 Band Neutrophils # 0.3 K/mm3 10/02/20 01:01 Lymphocytes # (Manual) 0.1 K/mm3 (1.2-5.4) L 10/02/20 01:01 Abs React Lymphs (Man) 0.0 K/mm3 10/02/20 01:01 Monocytes # (Manual) 1.2 K/mm3 (0.0-0.8) H 10/02/20 01:01 Eosinophils # (Manual) 0.0 K/mm3 (0.0-0.4) 10/02/20 01:01 Basophils # (Manual) 0.0 K/mm3 (0.0-0.1) 10/02/20 01:01 Metamyelocytes # 0.0 K/mm3 10/02/20 01:01 Myelocytes # 0.0 K/mm3 10/02/20 01:01 Promyelocytes # 0.0 K/mm3 10/02/20 01:01 Blast Cells # 0.0 K/mm3 10/02/20 01:01 WBC Morphology Not Reportable 10/02/20 01:01 Hypersegmented Neuts Not Reportable 10/02/20 01:01 Hyposegmented Neuts Not Reportable 10/02/20 01:01 Hypogranular Neuts Not Reportable 10/02/20 01:01 Smudge Cells Not Reportable 10/02/20 01:01 Toxic Granulation Not Reportable 10/02/20 01:01 Toxic Vacuolation Not Reportable 10/02/20 01:01 Dohle Bodies Not Reportable 10/02/20 01:01 Pelger-Huet Anomaly Not Reportable 10/02/20 01:01 Yohan Rods Not Reportable 10/02/20 01:01 Platelet Estimate Consistent w auto 10/02/20 01:01 Clumped Platelets Not Reportable 10/02/20 01:01 Plt Clumps, EDTA Not Reportable 10/02/20 01:01 Large Platelets Few 10/02/20 01:01 Giant Platelets Not Reportable 10/02/20 01:01 Platelet Satelliting Not Reportable 10/02/20 01:01 Plt Morphology Comment Not Reportable 10/02/20 01:01 RBC Morphology Not Reportable 10/02/20 01:01 Dimorphic RBCs Not Reportable 10/02/20 01:01 Polychromasia Not Reportable 10/02/20 01:01 Hypochromasia Not Reportable 10/02/20 01:01 Poikilocytosis Not Reportable 10/02/20 01:01 Anisocytosis 1+ 10/02/20 01:01 Microcytosis Not Reportable 10/02/20 01:01 Macrocytosis Not Reportable 10/02/20 01:01 Spherocytes Not Reportable 10/02/20 01:01 Pappenheimer Bodies Not Reportable 10/02/20 01:01 Sickle Cells Not Reportable 10/02/20 01:01 Target Cells Not Reportable 10/02/20 01:01 Tear Drop Cells Not Reportable 10/02/20 01:01 Ovalocytes Not Reportable 10/02/20 01:01 Helmet Cells Not Reportable 10/02/20 01:01 De Guzman-[place] Bodies Not Reportable 10/02/20 01:01 [place] Rings Not Reportable 10/02/20 01:01 [place] Cells Not Reportable 10/02/20 01:01 Bite Cells Not Reportable 10/02/20 01:01 Crenated Cell Not Reportable 10/02/20 01:01 Elliptocytes Not Reportable 10/02/20 01:01 Acanthocytes (Spur) Not Reportable 10/02/20 01:01 Rouleaux Not Reportable 10/02/20 01:01 Hemoglobin C Crystals Not Reportable 10/02/20 01:01 Schistocytes Not Reportable 10/02/20 01:01 Malaria parasites Not Reportable 10/02/20 01:01 Shekhar Bodies Not Reportable 10/02/20 01:01 Hem Pathologist Commnt No 10/02/20 01:01 PT 14.9 Sec. (12.2-14.9) 10/04/20 14:16 INR 1.12 (0.87-1.13) 10/04/20 14:16 APTT 28.5 Sec. (24.2-36.6) 10/04/20 14:16 Thrombin Time 23.2 Sec. (15.1-19.6) H 10/02/20 01:01 D-Dimer 2287.60 ng/mlDDU (0-234) H 10/04/20 09:59 Heparin Anti-Xa Level 0.33 U.I./ml (0.3-0.7) 10/04/20 21:40 ABG pH 7.388 (7.320-7.450) 10/05/20 03:13 POC ABG pCO2 41.7 mmHg (32.0-48.0) 10/05/20 03:13 POC ABG pO2 99.3 mmHg (83-108) 10/05/20 03:13 POC ABG HCO3 24.6 10/05/20 03:13 ABG O2 Saturation 97.1 (0-100) 10/05/20 03:13 POC ABG Base Excess -0.4 10/05/20 03:13 ABG Hemoglobin 12.1 (12.0-17.5) 10/05/20 03:13 ABG Oxyhemoglobin 96.5 (94-98) 10/05/20 03:13 ABG Methemoglobin 0.3 (0.0-1.5) 10/05/20 03:13 ABG Sodium 140.1 mmol/L (136.0-145.0) 10/05/20 03:13 ABG Potassium 4.0 mmol/L (3.40-4.50) 10/05/20 03:13 ABG Chloride 104.0 mmol/L (98-107) 10/05/20 03:13 ABG Glucose 119 mg/dL (65-95) H 10/05/20 03:13 Carboxyhemoglobin 0.3 (0.5-1.5) L 10/05/20 03:13 FiO2 % 100.0 10/05/20 03:13 Sodium 144 mmol/L (137-145) 10/05/20 05:04 Potassium 4.3 mmol/L (3.6-5.0) 10/05/20 05:04 Chloride 102.4 mmol/L (98-107) 10/05/20 05:04 Carbon Dioxide 24 mmol/L (22-30) 10/05/20 05:04 Anion Gap 22 mmol/L 10/05/20 05:04 BUN 90 mg/dL (9-20) H 10/05/20 05:04 Creatinine 5.9 mg/dL (0.8-1.3) H 10/05/20 05:04 Estimated GFR 12 ml/min 10/05/20 05:04 BUN/Creatinine Ratio 15 % 10/05/20 05:04 Glucose 107 mg/dL (75-100) H 10/05/20 05:04 POC Glucose 103 mg/dL (70-105) 10/05/20 05:29 Calcium 9.1 mg/dL (8.4-10.2) 10/05/20 05:04 Phosphorus 8.10 mg/dL (2.5-4.5) H 10/04/20 04:58 Ferritin > 2000.0 ng/mL (30.0-300.0) H 10/04/20 09:59 Total Bilirubin 0.50 mg/dL (0.1-1.2) 10/04/20 04:58 Direct Bilirubin < 0.2 mg/dL (0-0.2) 10/03/20 05:25 Indirect Bilirubin 0.1 mg/dL 10/03/20 05:25 AST 50 units/L (5-40) H 10/04/20 04:58 ALT 66 units/L (7-56) H 10/04/20 04:58 Alkaline Phosphatase 68 units/L (35-129) 10/04/20 04:58 Lactate Dehydrogenase 735 units/L (91-180) H 10/04/20 09:59 Total Creatine Kinase 482 units/L (55-170) H 10/05/20 05:04 CK-MB (CK-2) 14.8 ng/mL (0.0-4.0) H 10/02/20 01:01 CK-MB (CK-2) Rel Index 0.5 (0-4) 10/02/20 01:01 Troponin T 0.036 ng/mL (0.00-0.029) H 10/02/20 01:01 C-Reactive Protein 16.40 mg/dL (0.00-1.30) H 10/04/20 09:59 Total Protein 6.5 g/dL (6.3-8.2) 10/04/20 04:58 Albumin 2.6 g/dL (3.9-5) L 10/04/20 04:58 Albumin/Globulin Ratio 0.7 % 10/04/20 04:58 Triglycerides 427 mg/dL (2-149) H 10/02/20 01:01 Cholesterol 165 mg/dL (50-199) 10/02/20 01:01 LDL Cholesterol Direct TNR 10/02/20 01:01 HDL Cholesterol 31 mg/dL (40-59) L 10/02/20 01:01 Cholesterol/HDL Ratio 5.32 % 10/02/20 01:01 Procalcitonin 18.80 ng/mL (<0.15) 10/02/20 11:47 PTH Intact 140.3 pg/mL (15-65) H 10/04/20 04:58 Arterial Blood Glucose 119 mg/dL (65-95) H 10/05/20 03:13 Arterial Blood Ionized Calcium 4.4 mg/dL (4.6-5.3) L 10/05/20 03:13 Urine Color Alison (Yellow) 10/02/20 02:59 Urine Turbidity Cloudy (Clear) 10/02/20 02:59 Urine pH 5.0 (5.0-7.0) 10/02/20 02:59 Ur Specific [place] 1.025 (1.003-1.030) 10/02/20 02:59 Urine Protein >500 mg/dL (Negative) 10/02/20 02:59 Urine Glucose (UA) 50 mg/dL (Negative) 10/02/20 02:59 Urine Ketones Neg mg/dL (Negative) 10/02/20 02:59 Urine Blood Lg (Negative) 10/02/20 02:59 Urine Nitrite Neg (Negative) 10/02/20 02:59 Urine Bilirubin Neg (Negative) 10/02/20 02:59 Urine Urobilinogen < 2.0 mg/dL (<2.0) 10/02/20 02:59 Ur Leukocyte Esterase Neg (Negative) 10/02/20 02:59 Urine WBC (Auto) 8.0 /HPF (0.0-6.0) H 10/02/20 02:59 Urine RBC (Auto) 3.0 /HPF (0.0-6.0) 10/02/20 02:59 U Epithel Cells (Auto) 2.0 /HPF (0-13.0) 10/02/20 02:59 Amorphous Crystals Few 10/02/20 02:59 Urine Mucus Few /HPF 10/02/20 02:59 Urine Creatinine 156.1 mg/dL (0.1-20.0) H 10/03/20 06:30 Urine Sodium 22 mmol/L 10/03/20 06:30 Urine Opiates Screen Negative 10/02/20 02:59 Urine Methadone Screen Negative 10/02/20 02:59 Ur Barbiturates Screen Negative 10/02/20 02:59 Ur Phencyclidine Scrn Negative 10/02/20 02:59 Ur Amphetamines Screen Negative 10/02/20 02:59 U Benzodiazepines Scrn Negative 10/02/20 02:59 Urine Cocaine Screen Negative 10/02/20 02:59 U Marijuana (THC) Screen Negative 10/02/20 02:59 Drugs of Abuse Note Disclamer 10/02/20 02:59 Plasma/Serum Alcohol < 0.01 % (0-0.07) 10/02/20 01:01 Coronavirus (PCR) Positive (Negative) A 10/02/20 Unknown Hepatitis A IgM Ab Non-reactive (NonReactive) 10/02/20 01:01 Hep Bs Antigen Non-reactive (Negative) 10/02/20 01:01 Hep B Core IgM Ab Non-reactive (NonReactive) 10/02/20 01:01 Hepatitis C Antibody Non-reactive (NonReactive) 10/02/20 01:01 Microbiology: Microbiology 10/02/20 01:18 Peripheral/Venous Blood Culture - Preliminary NO GROWTH AFTER 72 HOURS 10/02/20 01:13 Peripheral/Venous Blood Culture - Preliminary NO GROWTH AFTER 72 HOURS [place]/IV: Voiding Method Indwelling Catheter Active Medications - Current Medications Current Medications: Generic Name Dose Route Start Last Admin Trade Name Freq PRN Reason Stop Dose Admin Acetaminophen 650 mg 10/02/20 05:23 10/04/20 10:58 Acetaminophen 325 Mg Tab PO 650 mg Q6H PRN Administration Pain MILD(1-3)/Fever >100.5/[place] Lipase/Protease/Amylase 1 each 10/04/20 12:06 Lipase 10,500/Protease 25,000/Amylase 43,750 (Units) Dr Cap FEEDTUBE PRN PRN For Clogged Feeding Tube Bisacodyl 10 mg 10/02/20 05:23 Bisacodyl 10 Mg Rect Supp [place] QDAY PRN Constipation Dexamethasone 6 mg 10/03/20 04:00 10/05/20 04:10 Dexamethasone 4 Mg/Ml Vial IV 10/12/20 04:01 6 mg Q24H MUSTAPHA Administration Dextrose 50 ml 10/02/20 06:44 Dextrose 50% In Water (25gm) 50 Ml Syringe IV Q30MIN PRN Hypoglycemia Protocol Famotidine 20 mg 10/02/20 10:00 10/04/20 10:59 Famotidine 20 Mg/2 Ml Inj IV 20 mg DAILY MUSTAPHA Administration Fentanyl 50 mcg 10/02/20 00:53 Fentanyl 100 Mcg/2 Ml Inj IV Q10MIN PRN ANALGESIA Heparin Sodium (Porcine) 2,000 unit 10/04/20 12:18 Heparin 10,000 Units/10 Ml Vial IV RADHA PRN hemodialysis Heparin Sodium (Porcine) 3,400 unit 10/04/20 12:51 Heparin 10,000 Units/10 Ml Vial 40 unit/kg (3400 unit) IV Q6H PRN Anti-Xa Assay < 0.1 units/ml Hydrophilic Ointment 1 applic 10/02/20 00:53 Lip Therapy Vaseline TP Q2HR PRN Dry Lips Fentanyl Citrate 2,000 mcg in 100 mls @ 4.2 mls/hr 10/02/20 01:00 10/05/20 04:09 Fentanyl Drip Premix IV 4 mcg/kg/hr TITR MUSTAPHA 16.8 mls/hr Administration Protocol 1 MCG/KG/HR Propofol 1,000 mg in 100 mls @ 2.52 mls/hr 10/02/20 03:00 10/05/20 06:07 Diprivan 10 Mg/Ml IV 50 mcg/kg/min TITR MUSTAPHA 25.2 mls/hr Administration Protocol 5 MCG/KG/MIN Ceftriaxone Sodium 2 gm in 100 mls @ 200 mls/hr 10/03/20 03:30 10/05/20 02:32 Rocephin/Ns 2 Gm/100 Ml IV 10/07/20 03:59 200 mls/hr Q24H MUSTAPHA Administration Protocol Azithromycin 500 mg in 250 mls @ 250 mls/hr 10/03/20 04:00 10/05/20 04:11 Zithromax/Ns IV 10/07/20 04:59 250 mls/hr Q24H MUSTAPHA Administration Protocol TOCILIZUMAB 600 mg/ Sodium 130 mls @ 120 mls/hr 10/03/20 10:33 Chloride IV 10/03/20 11:37 ONCE ONE Sodium Chloride 100 mls @ 999 mls/hr 10/04/20 12:18 Nacl 0.9% IV RADHA PRN Hypotension Heparin Sodium/Sodium Chloride 25,000 unit in 500 mls @ 20 mls/hr 10/04/20 14:00 10/04/20 22:34 Heparin/ 0.45% Nacl-25,000 Unit/500 Ml IV 1,000 units/hr TITRATE MUSTAPHA 20 mls/hr Titration Protocol 1,000 UNITS/HR Insulin Glargine 20 units 10/03/20 22:00 10/04/20 21:43 Insulin Glargine 100 Units/Ml SUB-Q 20 units QHS [facility] Administration Insulin Human Lispro 0 unit 10/02/20 12:00 10/05/20 07:45 Insulin Lispro 100 Unit/Ml SUB-Q Not Given Q6HR [facility] Protocol Magnesium Hydroxide 30 ml 10/02/20 05:23 Magnesium Hydroxide (Mom) Oral Liqd Udc PO Q4H PRN Constipation Metoclopramide HCl 5 mg 10/02/20 05:53 Metoclopramide 10 Mg Tab PO Q6H PRN Nausea And Vomiting Midazolam HCl 2 mg 10/02/20 09:48 Midazolam 2 Mg/2 Ml Inj IV Q10MIN PRN Sedation Multi-Ingred Cream/Lotion/Oil/Oint 1 applic 10/02/20 00:53 Mineral Oil/Petrolatum, White Ophth Oint 3.5 Gm OU Q4HR PRN Dry Eye(s) Ondansetron HCl 4 mg 10/02/20 05:23 Ondansetron 4 Mg/2 Ml Inj IV Q8H PRN Nausea And Vomiting Promethazine HCl 25 mg 10/02/20 05:23 Promethazine 25 Mg Rect Supp [place] Q6H PRN Nausea And Vomiting Senna/Docusate Sodium 1 tab 10/02/20 22:00 10/04/20 21:00 Sennosides/Docusate Sodium 8.6/50 Mg Tab FEEDTUBE Not Given BID MUSTAPHA Simple Syrup 15 ml 10/04/20 12:06 Simple Syrup 15 Ml FEEDTUBE PRN PRN Hypoglycemia Simple Syrup 30 ml 10/04/20 12:06 Simple Syrup 15 Ml FEEDTUBE PRN PRN Hypoglycemia Sodium Bicarbonate 325 mg 10/04/20 12:06 Sodium Bicarbonate 325 Mg Tab FEEDTUBE PRN PRN For Clogged Feeding Tube Sodium Chloride 10 ml 10/02/20 10:00 10/04/20 22:00 Sodium Chloride 0.9% 10 Ml Flush Syringe IV 10 ml BID MUSTAPHA Administration Sodium Chloride 10 ml 10/02/20 05:23 10/05/20 04:10 Sodium Chloride 0.9% 10 Ml Flush Syringe IV 10 ml PRN PRN Administration LINE FLUSH Nutrition/Malnutrition Assess - Dietary Evaluation Nutrition/Malnutrition Findings: Nutrition Notes Start: 10/02/20 07:33 Freq: Status: Active Protocol: Document 10/04/20 11:54 CW (Rec: 10/04/20 12:06 CW [id number]) Nutrition Notes Need for Assessment generated from: MD Order Initial or Follow up Reassessment Current Diagnosis Acute Kidney Injury,Diabetes, Hypertension,Respiratory Failure Other Pertinent Diagnosis pneu, COVID Current Diet NPO Labs/Tests BUN 112 Cr 8.2 BG 70 phos 8.1 Pertinent Medications senokot NS at 125 ml/hr propofol at 12.6ml/hr (333 kcal) decadron Lantus Height 5 ft 10.8 in Weight 84 kg [place] Body Weight (kg) 77.63 BMI 25.9 Weight Status Overweight Subjective/Other Information MD consult for write/manage TF . Pt remains on mechanical vent. Renal functioning worsening. Recommend Nepro. Percent of energy/protein needs met: 0%/0% Burn Absent Trauma Absent Current % PO Negligible Minimum of two criteria No physical signs of malnutrition #1 Nutrition Diagnosis Inadequate oral intake Diagnosis Progress(for reassessment Continues documentation) Is patient on ventilator? Yes Is Patient Ambulatory and/or Out of Bed No REE-([place]-St. Jeor-confined to bed) 61 Calculation Used for Recommendations [place]-St Jeor Additional Notes Protein: (1.2-2g/kg) 101-168g Fluid: 1 ml/kcal or per Nutrition Intervention Change Diet Order: Initiate TF Nutrition Support: Nepro at 40 ml/hr. Free water flush of 225 ml q4h Kcal 1,728 Protein (gm) 78 Fluid (mL) 698 Goal #1 Initiate TF regimen Goal #2 Meet at least 75% of EER via TF Anticipated Discharge Needs: unable to determine at this time Follow-Up By: 10/06/20 Additional Comments F/U for TF at goal and tolerance
--- NOTE | 2020-10-05 11:40 | Progress Note ---
Assessment and Plan 1. Acute kidney injury: OLIVIA in the setting of severe Covid infection. Received IV contrast 10/02. FeNa low. Renal US negative for hydro. Monitor renal function. BUN and Creatinine level remains high. Avoid nephrotoxic agents. Meds dosage based on GFR. Monitor for [employer] needs. Patient was started on hemodialysis due to worsening renal function. Hemodialysis: 10/04. 2. FEN: Monitor lytes and volume status. 3. Acute respiratory failure with hypoxemia: 2/2 Covid PNA. Currently proned, on vent, wean as tolerated. 4. Covid PNA: Followed by ID. 5. Acute encephalopathy, POA: Multifactorial. R/O Seizure. CT brain remarkable for left frontal hypodensity. EEG suggestive of encephalopathy. R/O CVA. 6. Rhabdomyolysis: Trend CK, improving. 7. Elevated ALT & AST: Trend. 8. DM type 2: Monitor. Subjective: Patient was seen and examined at the bedside. Examination: General appearance: well-developed, appears stated age, intubated on vent, proned HEENT: atraumatic, no icterus Neck: trachea midline Respiratory: MV sounds Heart: S1S2, regular, no murmur Abdomen: soft, bowel sounds heard, NT Integumentary: no obvious rash Neurologic: not responding Ext: no edema : Blanchard catheter Hemodialysis access: R IJ temp catheter Subjective Date of service: 10/05/20 Principal diagnosis: elevated inflammatory markers, COVID positive,ESRD on dialysis Objective - Vital Signs Vital signs: Vital Signs - 12hr 10/04/20 10/04/20 10/05/20 23:42 23:50 00:00 Temperature 99.2 F Pulse Rate 79 78 76 Pulse Rate [ From Monitor] Respiratory 23 14 13 Rate Blood Pressure 111/78 97/59 101/62 O2 Sat by Pulse 92 88 Oximetry 10/05/20 10/05/20 10/05/20 00:10 00:20 00:30 Temperature Pulse Rate 74 74 72 Pulse Rate [ From Monitor] Respiratory 21 20 19 Rate Blood Pressure 95/58 88/56 99/59 O2 Sat by Pulse 95 90 88 Oximetry 10/05/20 10/05/20 10/05/20 00:40 00:50 00:57 Temperature Pulse Rate 70 72 69 Pulse Rate [ From Monitor] Respiratory 20 20 Rate Blood Pressure 96/62 99/59 98/56 O2 Sat by Pulse 91 88 90 Oximetry 10/05/20 10/05/20 10/05/20 01:00 01:10 01:20 Temperature Pulse Rate 70 68 71 Pulse Rate [ From Monitor] Respiratory 20 20 21 Rate Blood Pressure 93/60 99/59 92/58 O2 Sat by Pulse 90 91 90 Oximetry 10/05/20 10/05/20 10/05/20 01:30 01:40 01:50 Temperature Pulse Rate 71 69 69 Pulse Rate [ From Monitor] Respiratory 19 20 20 Rate Blood Pressure 96/61 94/61 102/63 O2 Sat by Pulse 90 92 92 Oximetry 10/05/20 10/05/20 10/05/20 02:00 02:10 02:20 Temperature Pulse Rate 68 70 61 Pulse Rate [ From Monitor] Respiratory 20 20 20 Rate Blood Pressure 100/60 102/57 100/61 O2 Sat by Pulse 93 84 Oximetry 10/05/20 10/05/20 10/05/20 02:30 02:40 02:50 Temperature Pulse Rate 61 65 68 Pulse Rate [ From Monitor] Respiratory 20 20 20 Rate Blood Pressure 104/64 99/59 96/59 O2 Sat by Pulse 98 96 92 Oximetry 10/05/20 10/05/20 10/05/20 02:51 03:00 03:10 Temperature Pulse Rate 70 66 66 Pulse Rate [ From Monitor] Respiratory 21 20 Rate Blood Pressure 104/60 100/62 O2 Sat by Pulse 92 91 Oximetry 10/05/20 10/05/20 10/05/20 03:20 03:30 03:40 Temperature Pulse Rate 66 68 63 Pulse Rate [ From Monitor] Respiratory 20 20 20 Rate Blood Pressure 99/60 100/56 98/58 O2 Sat by Pulse 93 94 98 Oximetry 10/05/20 10/05/20 10/05/20 03:50 04:00 04:10 Temperature Pulse Rate 66 67 66 Pulse Rate [ From Monitor] Respiratory 20 20 20 Rate Blood Pressure 104/63 99/57 103/61 O2 Sat by Pulse 95 93 91 Oximetry 10/05/20 10/05/20 10/05/20 04:20 04:30 04:40 Temperature Pulse Rate 68 68 64 Pulse Rate [ From Monitor] Respiratory 20 20 20 Rate Blood Pressure 98/60 97/54 99/58 O2 Sat by Pulse 94 92 Oximetry 10/05/20 10/05/20 10/05/20 04:50 05:00 05:06 Temperature Pulse Rate 68 68 68 Pulse Rate [ From Monitor] Respiratory 20 19 Rate Blood Pressure 93/57 98/60 114/66 O2 Sat by Pulse 93 91 90 Oximetry 10/05/20 10/05/20 10/05/20 05:10 05:20 05:30 Temperature Pulse Rate 67 57 L 65 Pulse Rate [ From Monitor] Respiratory 20 13 22 Rate Blood Pressure 114/66 117/64 129/78 O2 Sat by Pulse 88 72 L Oximetry 10/05/20 10/05/20 10/05/20 05:40 05:50 06:00 Temperature Pulse Rate 65 63 73 Pulse Rate [ From Monitor] Respiratory 20 20 17 Rate Blood Pressure 120/64 124/72 133/81 O2 Sat by Pulse 88 88 89 Oximetry 10/05/20 10/05/20 10/05/20 06:10 06:20 06:30 Temperature Pulse Rate 64 66 68 Pulse Rate [ From Monitor] Respiratory 20 20 21 Rate Blood Pressure 159/87 138/72 132/64 O2 Sat by Pulse 92 87 90 Oximetry 10/05/20 10/05/20 10/05/20 06:40 06:50 07:00 Temperature Pulse Rate 66 67 65 Pulse Rate [ From Monitor] Respiratory 20 19 22 Rate Blood Pressure 133/69 122/64 124/61 O2 Sat by Pulse 88 91 91 Oximetry 10/05/20 10/05/20 10/05/20 07:10 07:20 07:30 Temperature Pulse Rate 64 64 62 Pulse Rate [ From Monitor] Respiratory 20 20 20 Rate Blood Pressure 112/62 114/60 117/63 O2 Sat by Pulse 93 94 92 Oximetry 10/05/20 10/05/20 10/05/20 07:31 07:35 07:40 Temperature 97.2 F L Pulse Rate 63 63 Pulse Rate [ From Monitor] Respiratory 20 Rate Blood Pressure 118/59 118/59 O2 Sat by Pulse 96 95 Oximetry 10/05/20 10/05/20 10/05/20 07:50 08:00 08:10 Temperature Pulse Rate 60 60 58 L Pulse Rate [ From Monitor] Respiratory 20 20 20 Rate Blood Pressure 120/60 116/59 117/58 O2 Sat by Pulse 95 95 95 Oximetry 10/05/20 10/05/20 10/05/20 08:20 08:30 08:40 Temperature Pulse Rate 58 L 56 L 54 L Pulse Rate [ From Monitor] Respiratory 20 20 20 Rate Blood Pressure 122/63 117/60 115/58 O2 Sat by Pulse 96 96 96 Oximetry 10/05/20 10/05/20 10/05/20 08:50 09:00 09:07 Temperature 97.5 F L Pulse Rate 53 L 52 L Pulse Rate [ From Monitor] Respiratory 20 20 Rate Blood Pressure 114/58 120/60 O2 Sat by Pulse 96 96 Oximetry 10/05/20 10/05/20 10/05/20 09:10 09:13 09:20 Temperature Pulse Rate 53 L 53 L Pulse Rate [ 53 L From Monitor] Respiratory 20 20 20 Rate Blood Pressure 119/59 119/59 O2 Sat by Pulse 98 95 98 Oximetry 10/05/20 10/05/20 10/05/20 09:30 09:40 09:50 Temperature Pulse Rate 52 L 52 L 51 L Pulse Rate [ From Monitor] Respiratory 20 20 20 Rate Blood Pressure 119/59 119/59 119/59 O2 Sat by Pulse 98 98 98 Oximetry 10/05/20 10/05/20 10/05/20 10:00 10:10 10:20 Temperature Pulse Rate 53 L 51 L 45 L Pulse Rate [ From Monitor] Respiratory 20 20 20 Rate Blood Pressure 120/57 120/57 120/57 O2 Sat by Pulse 95 98 94 Oximetry 10/05/20 10/05/20 10/05/20 10:30 10:40 10:50 Temperature Pulse Rate 52 L 49 L 52 L Pulse Rate [ From Monitor] Respiratory 20 20 20 Rate Blood Pressure 120/57 120/57 120/57 O2 Sat by Pulse 93 99 98 Oximetry 10/05/20 10/05/20 10/05/20 11:00 11:10 11:20 Temperature Pulse Rate 51 L 51 L 50 L Pulse Rate [ From Monitor] Respiratory 20 20 20 Rate Blood Pressure 125/58 125/58 125/58 O2 Sat by Pulse 96 98 98 Oximetry 10/05/20 11:30 Temperature Pulse Rate 51 L Pulse Rate [ From Monitor] Respiratory 20 Rate Blood Pressure 125/58 O2 Sat by Pulse 99 Oximetry - Lab 10/04/20 14:16 10/05/20 05:04 Most recent lab results ABG pH 7.388 (7.320-7.450) 10/05/20 03:13 ABG O2 Saturation 97.1 (0-100) 10/05/20 03:13 Calcium 9.1 mg/dL (8.4-10.2) 10/05/20 05:04 Phosphorus 8.10 mg/dL (2.5-4.5) H 10/04/20 04:58 Urine Creatinine 156.1 mg/dL (0.1-20.0) H 10/03/20 06:30 Urine Sodium 22 mmol/L 10/03/20 06:30 Medications & Allergies - Medications Allergies/Adverse Reactions: Allergies No Known Allergies Allergy (Verified 10/02/20 01:44) Active Medications: Generic Name Dose Route Start Last Admin Trade Name Freq PRN Reason Stop Dose Admin Acetaminophen 650 mg 10/02/20 05:23 10/04/20 10:58 Acetaminophen 325 Mg Tab PO 650 mg Q6H PRN Administration Pain MILD(1-3)/Fever >100.5/[place] Lipase/Protease/Amylase 1 each 10/04/20 12:06 Lipase 10,500/Protease 25,000/Amylase 43,750 (Units) Dr Albarran FEEDTUBE PRN PRN For Clogged Feeding Tube Bisacodyl 10 mg 10/02/20 05:23 Bisacodyl 10 Mg Rect Supp IA QDAY PRN Constipation Dexamethasone 6 mg 10/03/20 04:00 10/05/20 04:10 Dexamethasone 4 Mg/Ml Vial IV 10/12/20 04:01 6 mg Q24H MUSTAPHA Administration Dextrose 50 ml 10/02/20 06:44 Dextrose 50% In Water (25gm) 50 Ml Syringe IV Q30MIN PRN Hypoglycemia Protocol Famotidine 20 mg 10/02/20 10:00 10/04/20 10:59 Famotidine 20 Mg/2 Ml Inj IV 20 mg DAILY MUSTAPHA Administration Fentanyl 50 mcg 10/02/20 00:53 Fentanyl 100 Mcg/2 Ml Inj IV Q10MIN PRN ANALGESIA Heparin Sodium (Porcine) 2,000 unit 10/04/20 12:18 Heparin 10,000 Units/10 Ml Vial IV RAHDA PRN hemodialysis Heparin Sodium (Porcine) 3,400 unit 10/04/20 12:51 Heparin 10,000 Units/10 Ml Vial 40 unit/kg (3400 unit) IV Q6H PRN Anti-Xa Assay < 0.1 units/ml Hydrophilic Ointment 1 applic 10/02/20 00:53 Lip Therapy Vaseline TP Q2HR PRN Dry Lips Fentanyl Citrate 2,000 mcg in 100 mls @ 4.2 mls/hr 10/02/20 01:00 10/05/20 10:25 Fentanyl Drip Premix IV 4 mcg/kg/hr TITR MUSTAPHA 16.8 mls/hr Administration Protocol 1 MCG/KG/HR Propofol 1,000 mg in 100 mls @ 2.52 mls/hr 10/02/20 03:00 10/05/20 10:25 Diprivan 10 Mg/Ml IV 50 mcg/kg/min TITR MUSTAPHA 25.2 mls/hr Administration Protocol 5 MCG/KG/MIN Ceftriaxone Sodium 2 gm in 100 mls @ 200 mls/hr 10/03/20 03:30 10/05/20 02:32 Rocephin/Ns 2 Gm/100 Ml IV 10/07/20 03:59 200 mls/hr Q24H MUSTAPHA Administration Protocol Azithromycin 500 mg in 250 mls @ 250 mls/hr 10/03/20 04:00 10/05/20 04:11 Zithromax/Ns IV 10/07/20 04:59 250 mls/hr Q24H MUSTAPHA Administration Protocol TOCILIZUMAB 600 mg/ Sodium 130 mls @ 120 mls/hr 10/03/20 10:33 Chloride IV 10/03/20 11:37 ONCE ONE Sodium Chloride 100 mls @ 999 mls/hr 10/04/20 12:18 Nacl 0.9% IV RADHA PRN Hypotension Heparin Sodium/Sodium Chloride 25,000 unit in 500 mls @ 20 mls/hr 10/04/20 14:00 10/04/20 22:34 Heparin/ 0.45% Nacl-25,000 Unit/500 Ml IV 1,000 units/hr TITRATE MUSTAPHA 20 mls/hr Titration Protocol 1,000 UNITS/HR Insulin Glargine 20 units 10/03/20 22:00 10/04/20 21:43 Insulin Glargine 100 Units/Ml SUB-Q 20 units QHS MUSTAPHA Administration Insulin Human Lispro 0 unit 10/02/20 12:00 10/05/20 11:36 Insulin Lispro 100 Unit/Ml SUB-Q Not Given Q6HR MUSTAPHA Protocol Magnesium Hydroxide 30 ml 10/02/20 05:23 Magnesium Hydroxide (Mom) Oral Liqd Udc PO Q4H PRN Constipation Metoclopramide HCl 5 mg 10/02/20 05:53 Metoclopramide 10 Mg Tab PO Q6H PRN Nausea And Vomiting Midazolam HCl 2 mg 10/02/20 09:48 Midazolam 2 Mg/2 Ml Inj IV Q10MIN PRN Sedation Multi-Ingred Cream/Lotion/Oil/Oint 1 applic 10/02/20 00:53 Mineral Oil/Petrolatum, White Ophth Oint 3.5 Gm OU Q4HR PRN Dry Eye(s) Ondansetron HCl 4 mg 10/02/20 05:23 Ondansetron 4 Mg/2 Ml Inj IV Q8H PRN Nausea And Vomiting Promethazine HCl 25 mg 10/02/20 05:23 Promethazine 25 Mg Rect Supp IA Q6H PRN Nausea And Vomiting Senna/Docusate Sodium 1 tab 10/02/20 22:00 10/04/20 21:00 Sennosides/Docusate Sodium 8.6/50 Mg Tab FEEDTUBE Not Given BID MUSTAPHA Simple Syrup 15 ml 10/04/20 12:06 Simple Syrup 15 Ml FEEDTUBE PRN PRN Hypoglycemia Simple Syrup 30 ml 10/04/20 12:06 Simple Syrup 15 Ml FEEDTUBE PRN PRN Hypoglycemia Sodium Bicarbonate 325 mg 10/04/20 12:06 Sodium Bicarbonate 325 Mg Tab FEEDTUBE PRN PRN For Clogged Feeding Tube Sodium Chloride 10 ml 10/02/20 10:00 10/04/20 22:00 Sodium Chloride 0.9% 10 Ml Flush Syringe IV 10 ml BID MUSTAPHA Administration Sodium Chloride 10 ml 10/02/20 05:23 10/05/20 04:10 Sodium Chloride 0.9% 10 Ml Flush Syringe IV 10 ml PRN PRN Administration LINE FLUSH
[2020-10-05] MEDS: HEPARIN/ 0.45% NACL DRIP 25,000 UNIT/500 ML BAG IV SCH (11:50)
--- NOTE | 2020-10-05 11:52 | Progress Note ---
Assessment and Plan Assessment and Plan - Patient Problems # Respiratory failure -Possibly secondary to the underlying pneumonia. -Patient has been intubated and sedated. # Acute encephalopathy -multifactorial -R/O Seizure EEG showed diffuse slowing with no sign of seizure - Ct brain is remarkable for left frontal hypodensity -Need MRI brain wo gd due to ESRD might require with GD ? -R/O CVA -CAN REPEAT CT brain if MRI is unable to do -Cut doen sedation as possible # Elevated CK -Patient placed on IV fluid. -We will monitor CK levels. -CPK #2544 # Acute renal failure -Patient placed on IV fluid normal saline. -BUN/Cr#66/5.6--5.9 # COVID-19 -Patient has been placed on isolation precautions. -Patient started on IV steroid. # Pneumonia -Possibly secondary to COVID-19. -Patient commenced on empiric IV antibiotics and IV steroid. # HLP -elevated LDL and triglycerid -treat as indicated -elevated liver enzymes and inflammatory markers # DVT prophylaxis -Patient placed on subcutaneous heparin. #Full code status -Patient is full code. PLAN 1-Cut down sedation 2- brain MRI other adams repeat CT brain 3- Treat underlying infection 4- Correct electrolytes and renal function will follow as needed Subjective Date of service: 10/05/20 Principal diagnosis: elevated inflammatory markers, COVID positive,ESRD on dialysis Interval history: status is unchanged he is intubated and sedated MRI is pending had dialysis yesterday he is on fentanyl 4 mc and propofol 50 mc Objective - Vital Sign Vital Signs - 12hr 10/04/20 10/05/20 10/05/20 23:50 00:00 00:10 Temperature 99.2 F Pulse Rate 78 76 74 Pulse Rate [ From Monitor] Respiratory 14 13 21 Rate Blood Pressure 97/59 101/62 95/58 O2 Sat by Pulse 92 88 95 Oximetry 10/05/20 10/05/20 10/05/20 00:20 00:30 00:40 Temperature Pulse Rate 74 72 70 Pulse Rate [ From Monitor] Respiratory 20 19 20 Rate Blood Pressure 88/56 99/59 96/62 O2 Sat by Pulse 90 88 91 Oximetry 10/05/20 10/05/20 10/05/20 00:50 00:57 01:00 Temperature Pulse Rate 72 69 70 Pulse Rate [ From Monitor] Respiratory 20 20 Rate Blood Pressure 99/59 98/56 93/60 O2 Sat by Pulse 88 90 90 Oximetry 10/05/20 10/05/20 10/05/20 01:10 01:20 01:30 Temperature Pulse Rate 68 71 71 Pulse Rate [ From Monitor] Respiratory 20 21 19 Rate Blood Pressure 99/59 92/58 96/61 O2 Sat by Pulse 91 90 90 Oximetry 10/05/20 10/05/20 10/05/20 01:40 01:50 02:00 Temperature Pulse Rate 69 69 68 Pulse Rate [ From Monitor] Respiratory 20 20 20 Rate Blood Pressure 94/61 102/63 100/60 O2 Sat by Pulse 92 92 93 Oximetry 10/05/20 10/05/20 10/05/20 02:10 02:20 02:30 Temperature Pulse Rate 70 61 61 Pulse Rate [ From Monitor] Respiratory 20 20 20 Rate Blood Pressure 102/57 100/61 104/64 O2 Sat by Pulse 84 98 Oximetry 10/05/20 10/05/20 10/05/20 02:40 02:50 02:51 Temperature Pulse Rate 65 68 70 Pulse Rate [ From Monitor] Respiratory 20 20 Rate Blood Pressure 99/59 96/59 O2 Sat by Pulse 96 92 Oximetry 10/05/20 10/05/20 10/05/20 03:00 03:10 03:20 Temperature Pulse Rate 66 66 66 Pulse Rate [ From Monitor] Respiratory 21 20 20 Rate Blood Pressure 104/60 100/62 99/60 O2 Sat by Pulse 92 91 93 Oximetry 10/05/20 10/05/20 10/05/20 03:30 03:40 03:50 Temperature Pulse Rate 68 63 66 Pulse Rate [ From Monitor] Respiratory 20 20 20 Rate Blood Pressure 100/56 98/58 104/63 O2 Sat by Pulse 94 98 95 Oximetry 10/05/20 10/05/20 10/05/20 04:00 04:10 04:20 Temperature Pulse Rate 67 66 68 Pulse Rate [ From Monitor] Respiratory 20 20 20 Rate Blood Pressure 99/57 103/61 98/60 O2 Sat by Pulse 93 91 94 Oximetry 10/05/20 10/05/20 10/05/20 04:30 04:40 04:50 Temperature Pulse Rate 68 64 68 Pulse Rate [ From Monitor] Respiratory 20 20 20 Rate Blood Pressure 97/54 99/58 93/57 O2 Sat by Pulse 92 93 Oximetry 0810/05/20 10/05/20 05:00 05:06 05:10 Temperature Pulse Rate 68 68 67 Pulse Rate [ From Monitor] Respiratory 19 20 Rate Blood Pressure 98/60 114/66 114/66 O2 Sat by Pulse 91 90 88 Oximetry 10/05/20 10/05/20 10/05/20 05:20 05:30 05:40 Temperature Pulse Rate 57 L 65 65 Pulse Rate [ From Monitor] Respiratory 13 22 20 Rate Blood Pressure 117/64 129/78 120/64 O2 Sat by Pulse 72 L 88 Oximetry 10/05/20 10/05/20 10/05/20 05:50 06:00 06:10 Temperature Pulse Rate 63 73 64 Pulse Rate [ From Monitor] Respiratory 20 17 20 Rate Blood Pressure 124/72 133/81 159/87 O2 Sat by Pulse 88 89 92 Oximetry 10/05/20 10/05/20 10/05/20 06:20 06:30 06:40 Temperature Pulse Rate 66 68 66 Pulse Rate [ From Monitor] Respiratory 20 21 20 Rate Blood Pressure 138/72 132/64 133/69 O2 Sat by Pulse 87 90 88 Oximetry 10/05/20 10/05/20 10/05/20 06:50 07:00 07:10 Temperature Pulse Rate 67 65 64 Pulse Rate [ From Monitor] Respiratory 19 22 20 Rate Blood Pressure 122/64 124/61 112/62 O2 Sat by Pulse 91 91 93 Oximetry 10/05/20 10/05/20 10/05/20 07:20 07:30 07:31 Temperature Pulse Rate 64 62 63 Pulse Rate [ From Monitor] Respiratory 20 20 Rate Blood Pressure 114/60 117/63 118/59 O2 Sat by Pulse 94 92 96 Oximetry 10/05/20 10/05/20 10/05/20 07:35 07:40 07:50 Temperature 97.2 F L Pulse Rate 63 60 Pulse Rate [ From Monitor] Respiratory 20 20 Rate Blood Pressure 118/59 120/60 O2 Sat by Pulse 95 95 Oximetry 10/05/20 10/05/20 10/05/20 08:00 08:10 08:20 Temperature Pulse Rate 60 58 L 58 L Pulse Rate [ From Monitor] Respiratory 20 20 20 Rate Blood Pressure 116/59 117/58 122/63 O2 Sat by Pulse 95 95 96 Oximetry 10/05/20 10/05/20 10/05/20 08:30 08:40 08:50 Temperature Pulse Rate 56 L 54 L 53 L Pulse Rate [ From Monitor] Respiratory 20 20 20 Rate Blood Pressure 117/60 115/58 114/58 O2 Sat by Pulse 96 96 96 Oximetry 10/05/20 10/05/20 10/05/20 09:00 09:07 09:10 Temperature 97.5 F L Pulse Rate 52 L 53 L Pulse Rate [ From Monitor] Respiratory 20 20 Rate Blood Pressure 120/60 119/59 O2 Sat by Pulse 96 98 Oximetry 10/05/20 10/05/20 10/05/20 09:13 09:20 09:30 Temperature Pulse Rate 53 L 52 L Pulse Rate [ 53 L From Monitor] Respiratory 20 20 20 Rate Blood Pressure 119/59 119/59 O2 Sat by Pulse 95 98 98 Oximetry 10/05/20 10/05/20 10/05/20 09:40 09:50 10:00 Temperature Pulse Rate 52 L 51 L 53 L Pulse Rate [ From Monitor] Respiratory 20 20 20 Rate Blood Pressure 119/59 119/59 120/57 O2 Sat by Pulse 98 98 95 Oximetry 10/05/20 10/05/20 10/05/20 10:10 10:20 10:30 Temperature Pulse Rate 51 L 45 L 52 L Pulse Rate [ From Monitor] Respiratory 20 20 20 Rate Blood Pressure 120/57 120/57 120/57 O2 Sat by Pulse 98 94 93 Oximetry 10/05/20 10/05/20 10/05/20 10:40 10:50 11:00 Temperature Pulse Rate 49 L 52 L 51 L Pulse Rate [ From Monitor] Respiratory 20 20 20 Rate Blood Pressure 120/57 120/57 125/58 O2 Sat by Pulse 99 98 96 Oximetry 10/05/20 10/05/20 10/05/20 11:10 11:20 11:30 Temperature Pulse Rate 51 L 50 L 51 L Pulse Rate [ From Monitor] Respiratory 20 20 20 Rate Blood Pressure 125/58 125/58 125/58 O2 Sat by Pulse 98 98 99 Oximetry 10/05/20 11:44 Temperature 97.3 F L Pulse Rate Pulse Rate [ From Monitor] Respiratory Rate Blood Pressure O2 Sat by Pulse Oximetry - General Apperance Constitutional: comfortable - EENT EENT: PERRL, mucous membranes moist - Respiratory Respiratory: chest non-tender, lungs clear, rhonchi - Cardiovascular Cardiovascular: regular rate, normal S1, normal S2 Extremities: no peripheral edema bilat - Gastrointestinal Gastrointestinal: normoactive bowel sounds - Integumentary Integumentary: normal - Neurologic Cranial nerve examination: other (pupil consticted poorly reactive, No EOM , no gag or corneal ) Reflex and gait examination: other (no movment to stimuli) - Laboratory Findings CBC and BMP: 10/04/20 14:16 10/05/20 05:04 Abnormal Lab Findings: Abnormal Labs 10/02/20 10/02/20 10/02/20 01:01 01:01 01:01 WBC RBC 5.04 H Hgb Hct MCV 81 L MCH 27 L Seg Neuts % (Manual) 85.0 H Lymphocytes % (Manual) 1.0 L Monocytes % (Manual) 11.0 H Nucleated RBC % 1.0 H Seg Neutrophils # Man 9.4 H Lymphocytes # (Manual) 0.1 L Monocytes # (Manual) 1.2 H PT 15.3 H INR 1.16 H Thrombin Time 23.2 H D-Dimer POC ABG pO2 ABG Oxyhemoglobin ABG Sodium ABG Chloride ABG Glucose Carboxyhemoglobin Sodium 133 L Chloride 85.1 L BUN 66 H Creatinine 5.6 H Glucose 292 H POC Glucose Phosphorus Ferritin AST 173 H ALT 139 H Lactate Dehydrogenase Total Creatine Kinase 2544 H CK-MB (CK-2) 14.8 H Troponin T 0.036 H C-Reactive Protein Albumin 3.3 L Triglycerides 427 H HDL Cholesterol 31 L PTH Intact Arterial Blood Glucose Arterial Blood Ionized Calcium Urine WBC (Auto) Urine Creatinine Coronavirus (PCR) 10/02/20 10/02/20 10/02/20 02:59 03:51 11:47 WBC RBC Hgb Hct MCV MCH Seg Neuts % (Manual) Lymphocytes % (Manual) Monocytes % (Manual) Nucleated RBC % Seg Neutrophils # Man Lymphocytes # (Manual) Monocytes # (Manual) PT INR Thrombin Time D-Dimer POC ABG pO2 55.2 L ABG Oxyhemoglobin 85.4 L ABG Sodium 132.0 L ABG Chloride 89.0 L ABG Glucose 372 H Carboxyhemoglobin Sodium Chloride BUN Creatinine Glucose POC Glucose Phosphorus Ferritin AST ALT Lactate Dehydrogenase Total Creatine Kinase 2548 H CK-MB (CK-2) Troponin T C-Reactive Protein Albumin Triglycerides HDL Cholesterol PTH Intact Arterial Blood Glucose 372 H Arterial Blood Ionized Calcium Urine WBC (Auto) 8.0 H Urine Creatinine Coronavirus (PCR) 10/02/20 10/02/20 10/02/20 11:47 11:47 11:47 WBC RBC Hgb Hct MCV MCH Seg Neuts % (Manual) Lymphocytes % (Manual) Monocytes % (Manual) Nucleated RBC % Seg Neutrophils # Man Lymphocytes # (Manual) Monocytes # (Manual) PT INR Thrombin Time D-Dimer 1023.48 H POC ABG pO2 ABG Oxyhemoglobin ABG Sodium ABG Chloride ABG Glucose Carboxyhemoglobin Sodium Chloride BUN Creatinine Glucose POC Glucose Phosphorus Ferritin 8643.0 H AST ALT Lactate Dehydrogenase 828 H Total Creatine Kinase CK-MB (CK-2) Troponin T C-Reactive Protein 13.60 H Albumin Triglycerides HDL Cholesterol PTH Intact Arterial Blood Glucose Arterial Blood Ionized Calcium Urine WBC (Auto) Urine Creatinine Coronavirus (PCR) 10/02/20 10/02/20 10/02/20 18:48 23:51 Unknown WBC RBC Hgb Hct MCV MCH Seg Neuts % (Manual) Lymphocytes % (Manual) Monocytes % (Manual) Nucleated RBC % Seg Neutrophils # Man Lymphocytes # (Manual) Monocytes # (Manual) PT INR Thrombin Time D-Dimer POC ABG pO2 ABG Oxyhemoglobin ABG Sodium ABG Chloride ABG Glucose Carboxyhemoglobin Sodium Chloride BUN Creatinine Glucose POC Glucose 441 H 457 H Phosphorus Ferritin AST ALT Lactate Dehydrogenase Total Creatine Kinase CK-MB (CK-2) Troponin T C-Reactive Protein Albumin Triglycerides HDL Cholesterol PTH Intact Arterial Blood Glucose Arterial Blood Ionized Calcium Urine WBC (Auto) Urine Creatinine Coronavirus (PCR) Positive A 10/03/20 10/03/20 10/03/20 05:22 05:25 05:25 WBC RBC Hgb Hct MCV MCH Seg Neuts % (Manual) Lymphocytes % (Manual) Monocytes % (Manual) Nucleated RBC % Seg Neutrophils # Man Lymphocytes # (Manual) Monocytes # (Manual) PT INR Thrombin Time D-Dimer POC ABG pO2 74.3 L ABG Oxyhemoglobin 93.2 L ABG Sodium 133.6 L ABG Chloride 92.0 L ABG Glucose 399 H Carboxyhemoglobin 0.3 L Sodium 135 L Chloride 88.0 L BUN 102 H Creatinine 7.5 H Glucose 383 H POC Glucose Phosphorus Ferritin AST 71 H ALT 88 H Lactate Dehydrogenase Total Creatine Kinase 1597 H CK-MB (CK-2) Troponin T C-Reactive Protein Albumin 2.6 L Triglycerides HDL Cholesterol PTH Intact Arterial Blood Glucose 399 H Arterial Blood Ionized Calcium Urine WBC (Auto) Urine Creatinine Coronavirus (PCR) 10/03/20 10/03/20 10/03/20 06:09 06:30 09:06 WBC RBC Hgb Hct MCV MCH Seg Neuts % (Manual) Lymphocytes % (Manual) Monocytes % (Manual) Nucleated RBC % Seg Neutrophils # Man Lymphocytes # (Manual) Monocytes # (Manual) PT INR Thrombin Time D-Dimer POC ABG pO2 ABG Oxyhemoglobin ABG Sodium ABG Chloride ABG Glucose Carboxyhemoglobin Sodium Chloride BUN Creatinine Glucose POC Glucose 360 H 298 H Phosphorus Ferritin AST ALT Lactate Dehydrogenase Total Creatine Kinase CK-MB (CK-2) Troponin T C-Reactive Protein Albumin Triglycerides HDL Cholesterol PTH Intact Arterial Blood Glucose Arterial Blood Ionized Calcium Urine WBC (Auto) Urine Creatinine 156.1 H Coronavirus (PCR) 10/03/20 10/03/20 10/03/20 13:07 16:37 21:32 WBC RBC Hgb Hct MCV MCH Seg Neuts % (Manual) Lymphocytes % (Manual) Monocytes % (Manual) Nucleated RBC % Seg Neutrophils # Man Lymphocytes # (Manual) Monocytes # (Manual) PT INR Thrombin Time D-Dimer POC ABG pO2 ABG Oxyhemoglobin ABG Sodium ABG Chloride ABG Glucose Carboxyhemoglobin Sodium Chloride BUN Creatinine Glucose POC Glucose 243 H 229 H 169 H Phosphorus Ferritin AST ALT Lactate Dehydrogenase Total Creatine Kinase CK-MB (CK-2) Troponin T C-Reactive Protein Albumin Triglycerides HDL Cholesterol PTH Intact Arterial Blood Glucose Arterial Blood Ionized Calcium Urine WBC (Auto) Urine Creatinine Coronavirus (PCR) 10/03/20 10/04/20 10/04/20 23:09 03:26 04:58 WBC RBC Hgb Hct MCV MCH Seg Neuts % (Manual) Lymphocytes % (Manual) Monocytes % (Manual) Nucleated RBC % Seg Neutrophils # Man Lymphocytes # (Manual) Monocytes # (Manual) PT INR Thrombin Time D-Dimer POC ABG pO2 77.8 L ABG Oxyhemoglobin ABG Sodium ABG Chloride ABG Glucose Carboxyhemoglobin 0.1 L Sodium Chloride 97.1 L BUN 112 H Creatinine 8.2 H Glucose 70 L POC Glucose 150 H Phosphorus 8.10 H Ferritin AST 50 H ALT 66 H Lactate Dehydrogenase Total Creatine Kinase 983 H CK-MB (CK-2) Troponin T C-Reactive Protein Albumin 2.6 L Triglycerides HDL Cholesterol PTH Intact Arterial Blood Glucose Arterial Blood Ionized Calcium 4.5 L Urine WBC (Auto) Urine Creatinine Coronavirus (PCR) 10/04/20 10/04/20 10/04/20 04:58 04:58 09:59 WBC 15.7 H RBC Hgb Hct MCV 82 L MCH Seg Neuts % (Manual) Lymphocytes % (Manual) Monocytes % (Manual) Nucleated RBC % Seg Neutrophils # Man Lymphocytes # (Manual) Monocytes # (Manual) PT INR Thrombin Time D-Dimer 2287.60 H POC ABG pO2 ABG Oxyhemoglobin ABG Sodium ABG Chloride ABG Glucose Carboxyhemoglobin Sodium Chloride BUN Creatinine Glucose POC Glucose Phosphorus Ferritin AST ALT Lactate Dehydrogenase Total Creatine Kinase CK-MB (CK-2) Troponin T C-Reactive Protein Albumin Triglycerides HDL Cholesterol PTH Intact 140.3 H Arterial Blood Glucose Arterial Blood Ionized Calcium Urine WBC (Auto) Urine Creatinine Coronavirus (PCR) 10/04/20 10/04/20 10/04/20 09:59 09:59 11:35 WBC RBC Hgb Hct MCV MCH Seg Neuts % (Manual) Lymphocytes % (Manual) Monocytes % (Manual) Nucleated RBC % Seg Neutrophils # Man Lymphocytes # (Manual) Monocytes # (Manual) PT INR Thrombin Time D-Dimer POC ABG pO2 ABG Oxyhemoglobin ABG Sodium ABG Chloride ABG Glucose Carboxyhemoglobin Sodium Chloride BUN Creatinine Glucose POC Glucose 126 H Phosphorus Ferritin > 2000.0 H AST ALT Lactate Dehydrogenase 735 H Total Creatine Kinase CK-MB (CK-2) Troponin T C-Reactive Protein 16.40 H Albumin Triglycerides HDL Cholesterol PTH Intact Arterial Blood Glucose Arterial Blood Ionized Calcium Urine WBC (Auto) Urine Creatinine Coronavirus (PCR) 10/04/20 10/04/20 10/04/20 14:16 17:17 21:39 WBC RBC Hgb 11.6 L Hct 35.2 L MCV MCH Seg Neuts % (Manual) Lymphocytes % (Manual) Monocytes % (Manual) Nucleated RBC % Seg Neutrophils # Man Lymphocytes # (Manual) Monocytes # (Manual) PT INR Thrombin Time D-Dimer POC ABG pO2 ABG Oxyhemoglobin ABG Sodium ABG Chloride ABG Glucose Carboxyhemoglobin Sodium Chloride BUN Creatinine Glucose POC Glucose 178 H 160 H Phosphorus Ferritin AST ALT Lactate Dehydrogenase Total Creatine Kinase CK-MB (CK-2) Troponin T C-Reactive Protein Albumin Triglycerides HDL Cholesterol PTH Intact Arterial Blood Glucose Arterial Blood Ionized Calcium Urine WBC (Auto) Urine Creatinine Coronavirus (PCR) 10/05/20 10/05/20 10/05/20 00:13 03:13 05:04 WBC RBC Hgb Hct MCV MCH Seg Neuts % (Manual) Lymphocytes % (Manual) Monocytes % (Manual) Nucleated RBC % Seg Neutrophils # Man Lymphocytes # (Manual) Monocytes # (Manual) PT INR Thrombin Time D-Dimer POC ABG pO2 ABG Oxyhemoglobin ABG Sodium ABG Chloride ABG Glucose 119 H Carboxyhemoglobin 0.3 L Sodium Chloride BUN 90 H Creatinine 5.9 H Glucose 107 H POC Glucose 141 H Phosphorus Ferritin AST ALT Lactate Dehydrogenase Total Creatine Kinase 482 H CK-MB (CK-2) Troponin T C-Reactive Protein Albumin Triglycerides HDL Cholesterol PTH Intact Arterial Blood Glucose 119 H Arterial Blood Ionized Calcium 4.4 L Urine WBC (Auto) Urine Creatinine Coronavirus (PCR) 10/05/20 11:33 WBC RBC Hgb Hct MCV MCH Seg Neuts % (Manual) Lymphocytes % (Manual) Monocytes % (Manual) Nucleated RBC % Seg Neutrophils # Man Lymphocytes # (Manual) Monocytes # (Manual) PT INR Thrombin Time D-Dimer POC ABG pO2 ABG Oxyhemoglobin ABG Sodium ABG Chloride ABG Glucose Carboxyhemoglobin Sodium Chloride BUN Creatinine Glucose POC Glucose 136 H Phosphorus Ferritin AST ALT Lactate Dehydrogenase Total Creatine Kinase CK-MB (CK-2) Troponin T C-Reactive Protein Albumin Triglycerides HDL Cholesterol PTH Intact Arterial Blood Glucose Arterial Blood Ionized Calcium Urine WBC (Auto) Urine Creatinine Coronavirus (PCR)
--- NOTE | 2020-10-05 14:42 | XRay Report ---
CHEST 1 VIEW 10/05/2020 1:28 PM INDICATION / CLINICAL INFORMATION: follow up respiratory failure. COMPARISON: 10/04/2020 FINDINGS: SUPPORT DEVICES: Lines and tubes again project in expected position HEART / MEDIASTINUM: No significant abnormality. LUNGS / PLEURA: Moderate multifocal bilateral pneumonia, unchanged No pneumothorax. ADDITIONAL FINDINGS: No significant additional findings. IMPRESSION: 1. Stable bilateral pneumonia Signer Name: Roderick Dias MD Signed: 10/05/2020 2:38 PM Workstation Name: [id number]
[2020-10-05] MEDS: FAMOTIDINE 20 MG/2 ML INJ IV SCH (14:53)
[2020-10-05] MEDS: SENNOSIDES/DOCUSATE SODIUM 8.6/50 MG TAB FEEDTUBE SCH ×2 (14:53→22:11)
--- NOTE | 2020-10-05 18:34 | Progress Note ---
Assessment and Plan Acute hypoxemic respiratory failure on MVS COVID-19 infection Bilateral pneumonia Acute kidney injury Acute toxic metabolic encephalopathy Rhabdomyolysis Elevated serum inflammatory markers to include the D-dimers as well as ferritin level Non-ST elevation myocardial infarction Oropharyngeal dysphagia He is to be proned per facility critical care proning protocol tonight HD/UF thing in the morning - continue to wean supplemental oxygen forSpO2 89-92% - VAP bundle addressed, aspiration precautions HOb >30 - continue lung protective strategies, monitor airway pressures - continue bronchodilators with pulmonary hygiene per RT - continue accuchecks with glycemic control per SSI (While critically ill target blood glucose of 140-180 mg/dL; avoid hypoglycemia) - sedation prn for target RASS -4 to -5 - avoid nephrotoxins, renally dose all medications - continue to avoid benzodiazepines, reduce the possibility of delirium - complete antibiotics per ID - Maintenance of sleep-wake cycle, avoid delirium - continue enteral nutritional support at goal rate as tolerated, adjust goal rate once proned - Stress ulcer and VTE prophylaxis - PT/OT/ROM exercises - continue mobility protocols for pressure ulcer prophylaxis - Monitor hemodynamics closely - continue other care per attending / other consultants COVID SPECIFIC INTERVENTIONS - To receive Actemra once available - Remdesivir as per ID/Pulmonary developed protocols (not a candidate) - continue systemic steroids for severe COVID-19 infection - Monitor inflammatory markers per facility protocol - ferritin, Ddimer, CRP - therapeutic anticoagulation per system Protocol based on d-dimer and clinical considerations - Continue contact and airborne isolation CONDITION: CRITICAL PROGNOSIS: GUARDED CODE STATUS: FULL CODE The high probability of a clinically significant, sudden or life-threatening deterioration of the [respiratory, cardiovascular, renal & neurologic] system(s) required my full and direct attention, intervention and personal management. The aggregate critical care time was [35] minutes without overlap. Time includes spent on; [x] Data Review and interpretation [x] Patient assessment and monitoring of vital signs [x] Documentation [x] Medication orders and management Subjective Date of service: 10/05/20 Principal diagnosis: elevated lft Interval history: Patient is seen today for: Acute hypoxemic respiratory; COVID-19 infection; Pneumonia; OLIVIA; Acute toxic metabolic encephalopathy; NSTEMI Seen and examined at bedside; 24hour events reviewed; nursing and respiratory care staff consulted; no adverse overnight events reported to me; resting in bed; on MVS and heparin infusion Critically ill, PEEP 14, FIO2 100% Sedated, not responding. No reported fevers, no vomiting s/p HD last night, Proned last night. Was to get HD/UF today but there was some miscommunication, so it will be done first thing in the morning Objective Vital Signs - 12hr 10/05/20 10/05/20 10/05/20 06:40 06:50 07:00 Temperature Pulse Rate 66 67 65 Pulse Rate [ From Monitor] Respiratory 20 19 22 Rate Blood Pressure 133/69 122/64 124/61 O2 Sat by Pulse 88 91 91 Oximetry 10/05/20 10/05/20 10/05/20 07:10 07:20 07:30 Temperature Pulse Rate 64 64 62 Pulse Rate [ From Monitor] Respiratory 20 20 20 Rate Blood Pressure 112/62 114/60 117/63 O2 Sat by Pulse 93 94 92 Oximetry 10/05/20 10/05/20 10/05/20 07:31 07:35 07:40 Temperature 97.2 F L Pulse Rate 63 63 Pulse Rate [ From Monitor] Respiratory 20 Rate Blood Pressure 118/59 118/59 O2 Sat by Pulse 96 95 Oximetry 10/05/20 10/05/20 10/05/20 07:50 08:00 08:10 Temperature Pulse Rate 60 60 58 L Pulse Rate [ From Monitor] Respiratory 20 20 20 Rate Blood Pressure 120/60 116/59 117/58 O2 Sat by Pulse 95 95 95 Oximetry 10/05/20 10/05/20 10/05/20 08:20 08:30 08:40 Temperature Pulse Rate 58 L 56 L 54 L Pulse Rate [ From Monitor] Respiratory 20 20 20 Rate Blood Pressure 122/63 117/60 115/58 O2 Sat by Pulse 96 96 96 Oximetry 10/05/20 10/05/20 10/05/20 08:50 09:00 09:07 Temperature 97.5 F L Pulse Rate 53 L 52 L Pulse Rate [ From Monitor] Respiratory 20 20 Rate Blood Pressure 114/58 120/60 O2 Sat by Pulse 96 96 Oximetry 10/05/20 10/05/20 10/05/20 09:10 09:13 09:20 Temperature Pulse Rate 53 L 53 L Pulse Rate [ 53 L From Monitor] Respiratory 20 20 20 Rate Blood Pressure 119/59 119/59 O2 Sat by Pulse 98 95 98 Oximetry 10/05/20 10/05/20 10/05/20 09:30 09:40 09:50 Temperature Pulse Rate 52 L 52 L 51 L Pulse Rate [ From Monitor] Respiratory 20 20 20 Rate Blood Pressure 119/59 119/59 119/59 O2 Sat by Pulse 98 98 98 Oximetry 10/05/20 10/05/20 10/05/20 10:00 10:10 10:20 Temperature Pulse Rate 53 L 51 L 45 L Pulse Rate [ From Monitor] Respiratory 20 20 20 Rate Blood Pressure 120/57 120/57 120/57 O2 Sat by Pulse 95 98 94 Oximetry 10/05/20 10/05/20 10/05/20 10:30 10:40 10:50 Temperature Pulse Rate 52 L 49 L 52 L Pulse Rate [ From Monitor] Respiratory 20 20 20 Rate Blood Pressure 120/57 120/57 120/57 O2 Sat by Pulse 93 99 98 Oximetry 10/05/20 10/05/20 10/05/20 11:00 11:10 11:20 Temperature Pulse Rate 51 L 51 L 50 L Pulse Rate [ From Monitor] Respiratory 20 20 20 Rate Blood Pressure 125/58 125/58 125/58 O2 Sat by Pulse 96 98 98 Oximetry 10/05/20 10/05/20 10/05/20 11:30 11:40 11:44 Temperature 97.3 F L Pulse Rate 51 L 49 L Pulse Rate [ From Monitor] Respiratory 20 20 Rate Blood Pressure 125/58 125/58 O2 Sat by Pulse 99 99 Oximetry 10/05/20 10/05/20 10/05/20 11:50 11:52 12:00 Temperature Pulse Rate 50 L 48 L Pulse Rate [ 49 L From Monitor] Respiratory 20 20 20 Rate Blood Pressure 125/58 118/57 O2 Sat by Pulse 99 99 96 Oximetry 10/05/20 10/05/20 10/05/20 12:10 12:15 12:20 Temperature Pulse Rate 49 L 48 L 47 L Pulse Rate [ From Monitor] Respiratory 20 20 Rate Blood Pressure 118/57 125/58 118/57 O2 Sat by Pulse 99 98 99 Oximetry 10/05/20 10/05/20 10/05/20 12:30 12:40 12:50 Temperature Pulse Rate 47 L 49 L 51 L Pulse Rate [ From Monitor] Respiratory 20 20 20 Rate Blood Pressure 118/57 118/57 118/57 O2 Sat by Pulse 100 100 Oximetry 0810/05/20 10/05/20 13:00 13:10 13:20 Temperature Pulse Rate 48 L 47 L 49 L Pulse Rate [ From Monitor] Respiratory 20 20 9 L Rate Blood Pressure 118/57 118/57 118/57 O2 Sat by Pulse 100 100 89 Oximetry 10/05/20 10/05/20 10/05/20 13:30 13:40 13:50 Temperature Pulse Rate 46 L 49 L 48 L Pulse Rate [ From Monitor] Respiratory 20 20 20 Rate Blood Pressure 136/80 136/80 136/80 O2 Sat by Pulse 98 97 97 Oximetry 10/05/20 10/05/20 10/05/20 14:00 14:10 14:20 Temperature Pulse Rate 47 L 46 L 45 L Pulse Rate [ From Monitor] Respiratory 20 20 21 Rate Blood Pressure 114/67 114/67 114/67 O2 Sat by Pulse 94 93 97 Oximetry 10/05/20 10/05/20 10/05/20 14:30 14:40 14:50 Temperature Pulse Rate 52 L 48 L 52 L Pulse Rate [ From Monitor] Respiratory 14 20 21 Rate Blood Pressure 114/67 114/67 114/67 O2 Sat by Pulse 93 98 99 Oximetry 10/05/20 10/05/20 10/05/20 15:01 15:10 15:20 Temperature 97.9 F Pulse Rate 51 L 50 L 51 L Pulse Rate [ From Monitor] Respiratory 20 19 16 Rate Blood Pressure 141/82 141/82 141/82 O2 Sat by Pulse 100 95 95 Oximetry 10/05/20 10/05/20 10/05/20 15:30 15:40 15:50 Temperature Pulse Rate 51 L 51 L 50 L Pulse Rate [ From Monitor] Respiratory 20 19 13 Rate Blood Pressure 141/82 141/82 141/82 O2 Sat by Pulse 93 91 97 Oximetry 10/05/20 10/05/20 10/05/20 16:00 16:10 16:20 Temperature 98.0 F Pulse Rate 51 L 50 L 50 L Pulse Rate [ 44 L From Monitor] Respiratory 20 15 12 Rate Blood Pressure 121/74 121/74 121/74 O2 Sat by Pulse 95 93 93 Oximetry 10/05/20 10/05/20 10/05/20 16:30 16:40 16:50 Temperature Pulse Rate 46 L 48 L 49 L Pulse Rate [ From Monitor] Respiratory 20 15 16 Rate Blood Pressure 121/74 121/74 121/74 O2 Sat by Pulse 96 93 93 Oximetry 10/05/20 10/05/20 10/05/20 17:00 17:10 17:20 Temperature Pulse Rate 47 L 47 L 46 L Pulse Rate [ From Monitor] Respiratory 20 20 16 Rate Blood Pressure 106/65 106/65 106/65 O2 Sat by Pulse 92 95 93 Oximetry 10/05/20 10/05/20 10/05/20 17:30 17:40 17:50 Temperature Pulse Rate 44 L 45 L 44 L Pulse Rate [ From Monitor] Respiratory 21 18 21 Rate Blood Pressure 106/65 106/65 106/65 O2 Sat by Pulse 93 93 95 Oximetry 10/05/20 18:00 Temperature Pulse Rate 46 L Pulse Rate [ From Monitor] Respiratory 21 Rate Blood Pressure 113/69 O2 Sat by Pulse 94 Oximetry Constitutional: no acute distress, other (middle aged male with mildly increased respiratory effort at rest on MVS) Eyes: non-icteric ENT: oropharynx moist, other (ETT 24 cm CARY, RIJ HD catheter) Neck: supple, no lymphadenopathy, no JVD, other (large neck circumference) Effort: mildly labored Ascultation: Bilateral: diminished breath sounds, rhonchi Percussion: Bilateral: not dull Cardiovascular: regular rate and rhythm, other (S1,S2) Gastrointestinal: normoactive bowel sounds, soft, non-tender, non-distended (protuberant) Integumentary: normal Extremities: no cyanosis, no edema, pulses normal, no ischemia or petechiae Neurologic: pupils equal and round, unable to assess, other (sedated) Psychiatric: other (unable to assess re: AMS) CBC and BMP: 10/11/20 04:00 10/11/20 04:00 ABG, PT/INR, D-dimer: ABG ABG pH 7.388 (7.320-7.450) 10/05/20 03:13 POC ABG pCO2 41.7 mmHg (32.0-48.0) 10/05/20 03:13 POC ABG pO2 99.3 mmHg (83-108) 10/05/20 03:13 POC ABG HCO3 24.6 10/05/20 03:13 ABG O2 Saturation 97.1 (0-100) 10/05/20 03:13 PT/INR, D-dimer PT 14.9 Sec. (12.2-14.9) 10/04/20 14:16 INR 1.12 (0.87-1.13) 10/04/20 14:16 D-Dimer 2287.60 ng/mlDDU (0-234) H 10/04/20 09:59 Abnormal lab findings: Abnormal Labs 10/02/20 10/02/20 10/02/20 01:01 01:01 01:01 WBC RBC 5.04 H Hgb Hct MCV 81 L MCH 27 L Seg Neuts % (Manual) 85.0 H Lymphocytes % (Manual) 1.0 L Monocytes % (Manual) 11.0 H Nucleated RBC % 1.0 H Seg Neutrophils # Man 9.4 H Lymphocytes # (Manual) 0.1 L Monocytes # (Manual) 1.2 H PT 15.3 H INR 1.16 H Thrombin Time 23.2 H D-Dimer POC ABG pO2 ABG Oxyhemoglobin ABG Sodium ABG Chloride ABG Glucose Carboxyhemoglobin Sodium 133 L Chloride 85.1 L BUN 66 H Creatinine 5.6 H Glucose 292 H POC Glucose Phosphorus Ferritin AST 173 H ALT 139 H Lactate Dehydrogenase Total Creatine Kinase 2544 H CK-MB (CK-2) 14.8 H Troponin T 0.036 H C-Reactive Protein Albumin 3.3 L Triglycerides 427 H HDL Cholesterol 31 L PTH Intact Arterial Blood Glucose Arterial Blood Ionized Calcium Urine WBC (Auto) Urine Creatinine Coronavirus (PCR) 10/02/20 10/02/20 10/02/20 02:59 03:51 11:47 WBC RBC Hgb Hct MCV MCH Seg Neuts % (Manual) Lymphocytes % (Manual) Monocytes % (Manual) Nucleated RBC % Seg Neutrophils # Man Lymphocytes # (Manual) Monocytes # (Manual) PT INR Thrombin Time D-Dimer POC ABG pO2 55.2 L ABG Oxyhemoglobin 85.4 L ABG Sodium 132.0 L ABG Chloride 89.0 L ABG Glucose 372 H Carboxyhemoglobin Sodium Chloride BUN Creatinine Glucose POC Glucose Phosphorus Ferritin AST ALT Lactate Dehydrogenase Total Creatine Kinase 2548 H CK-MB (CK-2) Troponin T C-Reactive Protein Albumin Triglycerides HDL Cholesterol PTH Intact Arterial Blood Glucose 372 H Arterial Blood Ionized Calcium Urine WBC (Auto) 8.0 H Urine Creatinine Coronavirus (PCR) 10/02/20 10/02/20 10/02/20 11:47 11:47 11:47 WBC RBC Hgb Hct MCV MCH Seg Neuts % (Manual) Lymphocytes % (Manual) Monocytes % (Manual) Nucleated RBC % Seg Neutrophils # Man Lymphocytes # (Manual) Monocytes # (Manual) PT INR Thrombin Time D-Dimer 1023.48 H POC ABG pO2 ABG Oxyhemoglobin ABG Sodium ABG Chloride ABG Glucose Carboxyhemoglobin Sodium Chloride BUN Creatinine Glucose POC Glucose Phosphorus Ferritin 8643.0 H AST ALT Lactate Dehydrogenase 828 H Total Creatine Kinase CK-MB (CK-2) Troponin T C-Reactive Protein 13.60 H Albumin Triglycerides HDL Cholesterol PTH Intact Arterial Blood Glucose Arterial Blood Ionized Calcium Urine WBC (Auto) Urine Creatinine Coronavirus (PCR) 10/02/20 10/02/20 10/02/20 18:48 23:51 Unknown WBC RBC Hgb Hct MCV MCH Seg Neuts % (Manual) Lymphocytes % (Manual) Monocytes % (Manual) Nucleated RBC % Seg Neutrophils # Man Lymphocytes # (Manual) Monocytes # (Manual) PT INR Thrombin Time D-Dimer POC ABG pO2 ABG Oxyhemoglobin ABG Sodium ABG Chloride ABG Glucose Carboxyhemoglobin Sodium Chloride BUN Creatinine Glucose POC Glucose 441 H 457 H Phosphorus Ferritin AST ALT Lactate Dehydrogenase Total Creatine Kinase CK-MB (CK-2) Troponin T C-Reactive Protein Albumin Triglycerides HDL Cholesterol PTH Intact Arterial Blood Glucose Arterial Blood Ionized Calcium Urine WBC (Auto) Urine Creatinine Coronavirus (PCR) Positive A 10/03/20 10/03/20 10/03/20 05:22 05:25 05:25 WBC RBC Hgb Hct MCV MCH Seg Neuts % (Manual) Lymphocytes % (Manual) Monocytes % (Manual) Nucleated RBC % Seg Neutrophils # Man Lymphocytes # (Manual) Monocytes # (Manual) PT INR Thrombin Time D-Dimer POC ABG pO2 74.3 L ABG Oxyhemoglobin 93.2 L ABG Sodium 133.6 L ABG Chloride 92.0 L ABG Glucose 399 H Carboxyhemoglobin 0.3 L Sodium 135 L Chloride 88.0 L BUN 102 H Creatinine 7.5 H Glucose 383 H POC Glucose Phosphorus Ferritin AST 71 H ALT 88 H Lactate Dehydrogenase Total Creatine Kinase 1597 H CK-MB (CK-2) Troponin T C-Reactive Protein Albumin 2.6 L Triglycerides HDL Cholesterol PTH Intact Arterial Blood Glucose 399 H Arterial Blood Ionized Calcium Urine WBC (Auto) Urine Creatinine Coronavirus (PCR) 10/03/20 10/03/20 10/03/20 06:09 06:30 09:06 WBC RBC Hgb Hct MCV MCH Seg Neuts % (Manual) Lymphocytes % (Manual) Monocytes % (Manual) Nucleated RBC % Seg Neutrophils # Man Lymphocytes # (Manual) Monocytes # (Manual) PT INR Thrombin Time D-Dimer POC ABG pO2 ABG Oxyhemoglobin ABG Sodium ABG Chloride ABG Glucose Carboxyhemoglobin Sodium Chloride BUN Creatinine Glucose POC Glucose 360 H 298 H Phosphorus Ferritin AST ALT Lactate Dehydrogenase Total Creatine Kinase CK-MB (CK-2) Troponin T C-Reactive Protein Albumin Triglycerides HDL Cholesterol PTH Intact Arterial Blood Glucose Arterial Blood Ionized Calcium Urine WBC (Auto) Urine Creatinine 156.1 H Coronavirus (PCR) 10/03/20 10/03/20 10/03/20 13:07 16:37 21:32 WBC RBC Hgb Hct MCV MCH Seg Neuts % (Manual) Lymphocytes % (Manual) Monocytes % (Manual) Nucleated RBC % Seg Neutrophils # Man Lymphocytes # (Manual) Monocytes # (Manual) PT INR Thrombin Time D-Dimer POC ABG pO2 ABG Oxyhemoglobin ABG Sodium ABG Chloride ABG Glucose Carboxyhemoglobin Sodium Chloride BUN Creatinine Glucose POC Glucose 243 H 229 H 169 H Phosphorus Ferritin AST ALT Lactate Dehydrogenase Total Creatine Kinase CK-MB (CK-2) Troponin T C-Reactive Protein Albumin Triglycerides HDL Cholesterol PTH Intact Arterial Blood Glucose Arterial Blood Ionized Calcium Urine WBC (Auto) Urine Creatinine Coronavirus (PCR) 10/03/20 10/04/20 10/04/20 23:09 03:26 04:58 WBC RBC Hgb Hct MCV MCH Seg Neuts % (Manual) Lymphocytes % (Manual) Monocytes % (Manual) Nucleated RBC % Seg Neutrophils # Man Lymphocytes # (Manual) Monocytes # (Manual) PT INR Thrombin Time D-Dimer POC ABG pO2 77.8 L ABG Oxyhemoglobin ABG Sodium ABG Chloride ABG Glucose Carboxyhemoglobin 0.1 L Sodium Chloride 97.1 L BUN 112 H Creatinine 8.2 H Glucose 70 L POC Glucose 150 H Phosphorus 8.10 H Ferritin AST 50 H ALT 66 H Lactate Dehydrogenase Total Creatine Kinase 983 H CK-MB (CK-2) Troponin T C-Reactive Protein Albumin 2.6 L Triglycerides HDL Cholesterol PTH Intact Arterial Blood Glucose Arterial Blood Ionized Calcium 4.5 L Urine WBC (Auto) Urine Creatinine Coronavirus (PCR) 10/04/20 10/04/20 10/04/20 04:58 04:58 09:59 WBC 15.7 H RBC Hgb Hct MCV 82 L MCH Seg Neuts % (Manual) Lymphocytes % (Manual) Monocytes % (Manual) Nucleated RBC % Seg Neutrophils # Man Lymphocytes # (Manual) Monocytes # (Manual) PT INR Thrombin Time D-Dimer 2287.60 H POC ABG pO2 ABG Oxyhemoglobin ABG Sodium ABG Chloride ABG Glucose Carboxyhemoglobin Sodium Chloride BUN Creatinine Glucose POC Glucose Phosphorus Ferritin AST ALT Lactate Dehydrogenase Total Creatine Kinase CK-MB (CK-2) Troponin T C-Reactive Protein Albumin Triglycerides HDL Cholesterol PTH Intact 140.3 H Arterial Blood Glucose Arterial Blood Ionized Calcium Urine WBC (Auto) Urine Creatinine Coronavirus (PCR) 10/04/20 10/04/20 10/04/20 09:59 09:59 11:35 WBC RBC Hgb Hct MCV MCH Seg Neuts % (Manual) Lymphocytes % (Manual) Monocytes % (Manual) Nucleated RBC % Seg Neutrophils # Man Lymphocytes # (Manual) Monocytes # (Manual) PT INR Thrombin Time D-Dimer POC ABG pO2 ABG Oxyhemoglobin ABG Sodium ABG Chloride ABG Glucose Carboxyhemoglobin Sodium Chloride BUN Creatinine Glucose POC Glucose 126 H Phosphorus Ferritin > 2000.0 H AST ALT Lactate Dehydrogenase 735 H Total Creatine Kinase CK-MB (CK-2) Troponin T C-Reactive Protein 16.40 H Albumin Triglycerides HDL Cholesterol PTH Intact Arterial Blood Glucose Arterial Blood Ionized Calcium Urine WBC (Auto) Urine Creatinine Coronavirus (PCR) 10/04/20 10/04/20 10/04/20 14:16 17:17 21:39 WBC RBC Hgb 11.6 L Hct 35.2 L MCV MCH Seg Neuts % (Manual) Lymphocytes % (Manual) Monocytes % (Manual) Nucleated RBC % Seg Neutrophils # Man Lymphocytes # (Manual) Monocytes # (Manual) PT INR Thrombin Time D-Dimer POC ABG pO2 ABG Oxyhemoglobin ABG Sodium ABG Chloride ABG Glucose Carboxyhemoglobin Sodium Chloride BUN Creatinine Glucose POC Glucose 178 H 160 H Phosphorus Ferritin AST ALT Lactate Dehydrogenase Total Creatine Kinase CK-MB (CK-2) Troponin T C-Reactive Protein Albumin Triglycerides HDL Cholesterol PTH Intact Arterial Blood Glucose Arterial Blood Ionized Calcium Urine WBC (Auto) Urine Creatinine Coronavirus (PCR) 10/05/20 10/05/20 10/05/20 00:13 03:13 05:04 WBC RBC Hgb Hct MCV MCH Seg Neuts % (Manual) Lymphocytes % (Manual) Monocytes % (Manual) Nucleated RBC % Seg Neutrophils # Man Lymphocytes # (Manual) Monocytes # (Manual) PT INR Thrombin Time D-Dimer POC ABG pO2 ABG Oxyhemoglobin ABG Sodium ABG Chloride ABG Glucose 119 H Carboxyhemoglobin 0.3 L Sodium Chloride BUN 90 H Creatinine 5.9 H Glucose 107 H POC Glucose 141 H Phosphorus Ferritin AST ALT Lactate Dehydrogenase Total Creatine Kinase 482 H CK-MB (CK-2) Troponin T C-Reactive Protein Albumin Triglycerides HDL Cholesterol PTH Intact Arterial Blood Glucose 119 H Arterial Blood Ionized Calcium 4.4 L Urine WBC (Auto) Urine Creatinine Coronavirus (PCR) 10/05/20 10/05/20 11:33 18:04 WBC RBC Hgb Hct MCV MCH Seg Neuts % (Manual) Lymphocytes % (Manual) Monocytes % (Manual) Nucleated RBC % Seg Neutrophils # Man Lymphocytes # (Manual) Monocytes # (Manual) PT INR Thrombin Time D-Dimer POC ABG pO2 ABG Oxyhemoglobin ABG Sodium ABG Chloride ABG Glucose Carboxyhemoglobin Sodium Chloride BUN Creatinine Glucose POC Glucose 136 H 185 H Phosphorus Ferritin AST ALT Lactate Dehydrogenase Total Creatine Kinase CK-MB (CK-2) Troponin T C-Reactive Protein Albumin Triglycerides HDL Cholesterol PTH Intact Arterial Blood Glucose Arterial Blood Ionized Calcium Urine WBC (Auto) Urine Creatinine Coronavirus (PCR) Chest x-ray: image reviewed (Persitent alveolar infiltrates) Allied health notes reviewed: RT
[2020-10-05] MEDS: INSULIN GLARGINE 100 UNITS/ML SUB-Q SCH (22:10)
[2020-10-06] MEDS: fentaNYL DRIP Premix 2,000 MCG/100 ML BAG IV SCH ×5 (00:30→22:57)
[2020-10-06] MEDS: INSULIN LISPRO 100 UNIT/ML SUB-Q SCH ×5 (00:37→17:58)
--- NOTE | 2020-10-06 01:48 | XRay Report ---
CHEST - 1 VIEW INDICATION: follow up respiratory failure COMPARISON: Yesterday FINDINGS: SUPPORT DEVICES: Stable support device positioning. HEART: Stable cardiomediastinal silhouette. LUNGS/PLEURA: Persistent mild patchy multifocal airspace disease. ADDITIONAL FINDINGS: None. IMPRESSION: Unchanged exam. Signer Name: Perez Merida MD Signed: 10/06/2020 1:44 AM Workstation Name: [id number]
[2020-10-06 02:22] LABS: Hematocrit 34.7 % (35.5-45.6); Hemoglobin 11.3 gm/dl (11.8-15.2); Mean Corpuscular HGB Conc 32 % (32-34); Mean Corpuscular Volume 83 fl (84-94); Platelet Count 248 K/mm3 (140-440); Red Blood Count 4.17 M/mm3 (3.65-5.03); Red Cell Distribution Width 14.9 % (13.2-15.2)
[2020-10-06 02:46] LABS: Albumin 2.3 g/dL (3.9-5)
[2020-10-06] MEDS: cefTRIAXone/NS 2 GM/100 ML 2 GM/100 ML BAG IV SCH (03:46)
[2020-10-06] MEDS: dexAMETHasone 4 MG/ML VIAL IV SCH (03:47)
[2020-10-06] MEDS: AZITHROMYCIN/NS 500 MG/250 ML 500 MG/250 ML BAG IV SCH (03:47)
--- NOTE | 2020-10-06 11:16 | Progress Note ---
Assessment and Plan Acute hypoxemic respiratory failure on MVS COVID-19 infection Bilateral pneumonia Acute kidney injury Acute toxic metabolic encephalopathy Rhabdomyolysis Elevated serum inflammatory markers to include the D-dimers as well as ferritin level Non-ST elevation myocardial infarction Oropharyngeal dysphagia - increased peep to 16 cm H2O - begin scopolamine and robinul for copious non-bloody secretions - continue Daily SAT and SBT assessment as tolerated - continue to wean supplemental oxygen for target O2 sat's > 90% acutely - VAP bundle addressed - continue lung protective strategies - continue bronchodilators with pulmonary hygiene per RT - wean per pulmonary driven protocols otherwise - continue accuchecks with glycemic control per SSI (While critically ill target blood glucose of 140-180 mg/dL; avoid hypoglycemia) - sedation prn for target RASS 0 to -1 - avoid nephrotoxins, renally dose all medications - continue to avoid benzodiazepine's, reduce the possibility of delirium - complete AB's per ID rec's - prn analgesia per CPOT score - Maintenance of sleep-wake cycle, avoid delirium - continue enteral nutritional support at goal rate as tolerated - G.I. & VTE prophylaxis - PT/OT/ROM exercises - continue mobility protocols for pressure ulcer prophylaxis - Monitor hemodynamics closely - continue other care per attending / other consultants - discharge planning ongoing concurrently COVID SPECIFIC INTERVENTIONS - To receive Actemra - Remdesivir as per ID/Pulmonary developed protocols (not a candidate) - continue systemic steroids for severe COVID-19 infection empirically - follow repeat COVID tests results - zinc and vitamin C supplementation - Monitor inflammatory markers per facility protocol - ferritin, Ddimer, CRP - therapeutic anticoagulation per system Protocol based on d-dimer and clinical considerations - Continue contact and airborne isolation .... Re-evaluate in am & prn CONDITION: CRITICAL PROGNOSIS: GUARDED CODE STATUS: FULL CODE The high probability of a clinically significant, sudden or life-threatening deterioration of the [respiratory, cardiovascular, renal & neurologic] system(s) required my full and direct attention, intervention and personal management. The aggregate critical care time was [32] minutes without overlap. Time includes spent on; [x] Data Review and interpretation [x] Patient assessment and monitoring of vital signs [x] Documentation [x] Medication orders and management Subjective Date of service: 10/06/20 Principal diagnosis: Ac hypoxemic resp; COVID-19; Pneumonia; OLIVIA; Ac encephalopathy; NSTEMI Interval history: Patient is seen today for: Acute hypoxemic respiratory; COVID-19 infection; Pneumonia; OLIVIA; Acute toxic metabolic encephalopathy; NSTEMI Seen and examined at bedside; 24hour events reviewed; nursing and respiratory care staff consulted; no adverse overnight events reported to me; resting in bed; now on dialysis; AMS is persistent and agitated but not following commands during prompts; no emesis or overt aspiration and no gross bleeding; still becoming hypoxemic on current vent settings though Objective Vital Signs - 12hr 10/05/20 10/05/20 10/05/20 23:20 23:30 23:40 Temperature Pulse Rate 55 L 49 L 51 L Pulse Rate [ From Monitor] Respiratory 18 20 19 Rate Blood Pressure 120/69 120/69 120/69 O2 Sat by Pulse 94 99 96 Oximetry 10/05/20 10/05/20 10/05/20 23:45 23:50 23:52 Temperature 99.1 F Pulse Rate 50 L 50 L Pulse Rate [ From Monitor] Respiratory 20 14 Rate Blood Pressure 120/69 120/69 O2 Sat by Pulse 94 94 Oximetry 10/05/20 10/06/20 10/06/20 23:53 00:00 00:10 Temperature Pulse Rate 48 L 47 L Pulse Rate [ 52 L From Monitor] Respiratory 20 18 16 Rate Blood Pressure 103/59 103/59 O2 Sat by Pulse 93 94 94 Oximetry 10/06/20 10/06/20 10/06/20 00:20 00:30 00:40 Temperature Pulse Rate 47 L 49 L 50 L Pulse Rate [ From Monitor] Respiratory 20 19 19 Rate Blood Pressure 103/59 103/59 103/59 O2 Sat by Pulse 95 95 97 Oximetry 10/06/20 10/06/20 10/06/20 00:50 01:00 01:10 Temperature Pulse Rate 58 L 56 L 62 Pulse Rate [ From Monitor] Respiratory 19 21 22 Rate Blood Pressure 103/59 127/79 127/79 O2 Sat by Pulse 90 95 96 Oximetry 10/06/20 10/06/20 10/06/20 01:20 01:30 01:40 Temperature Pulse Rate 81 66 62 Pulse Rate [ 52 L From Monitor] Respiratory 18 23 21 Rate Blood Pressure 127/79 127/79 127/79 O2 Sat by Pulse 85 94 94 Oximetry 10/06/20 10/06/20 10/06/20 01:50 02:00 02:10 Temperature Pulse Rate 59 L 69 63 Pulse Rate [ From Monitor] Respiratory 23 26 H 22 Rate Blood Pressure 127/79 108/78 127/79 O2 Sat by Pulse 91 96 91 Oximetry 10/06/20 10/06/20 10/06/20 02:20 02:30 02:34 Temperature Pulse Rate 64 110 H Pulse Rate [ From Monitor] Respiratory 22 12 20 Rate Blood Pressure 127/79 127/79 O2 Sat by Pulse 91 92 Oximetry 10/06/20 10/06/20 10/06/20 02:40 02:50 03:00 Temperature Pulse Rate 91 H 86 64 Pulse Rate [ From Monitor] Respiratory 26 H 26 H 23 Rate Blood Pressure 108/78 108/78 110/83 O2 Sat by Pulse 95 80 L 87 Oximetry 10/06/20 10/06/20 10/06/20 03:10 03:11 03:20 Temperature 100.6 F H Pulse Rate 62 60 Pulse Rate [ From Monitor] Respiratory 22 20 Rate Blood Pressure 110/83 110/83 O2 Sat by Pulse 90 88 Oximetry 10/06/20 10/06/20 10/06/20 03:30 03:40 03:50 Temperature Pulse Rate 59 L 61 60 Pulse Rate [ From Monitor] Respiratory 17 21 19 Rate Blood Pressure 110/83 110/83 110/83 O2 Sat by Pulse 86 97 95 Oximetry 10/06/20 10/06/20 10/06/20 04:00 04:10 04:20 Temperature Pulse Rate 60 63 61 Pulse Rate [ 52 L From Monitor] Respiratory 20 21 20 Rate Blood Pressure 106/79 106/79 106/79 O2 Sat by Pulse 93 93 91 Oximetry 10/06/20 10/06/20 10/06/20 04:30 04:36 04:40 Temperature Pulse Rate 62 62 62 Pulse Rate [ From Monitor] Respiratory 22 20 Rate Blood Pressure 106/79 106/79 106/79 O2 Sat by Pulse 91 90 90 Oximetry 10/06/20 10/06/20 10/06/20 04:50 05:00 05:10 Temperature Pulse Rate 65 61 62 Pulse Rate [ From Monitor] Respiratory 15 21 21 Rate Blood Pressure 106/79 106/79 106/79 O2 Sat by Pulse 89 91 89 Oximetry 10/06/20 10/06/20 10/06/20 05:20 05:30 05:40 Temperature Pulse Rate 61 61 58 L Pulse Rate [ From Monitor] Respiratory 20 21 20 Rate Blood Pressure 106/79 106/79 106/79 O2 Sat by Pulse 88 88 88 Oximetry 10/06/20 10/06/20 10/06/20 05:50 06:00 06:10 Temperature Pulse Rate 60 61 58 L Pulse Rate [ From Monitor] Respiratory 18 21 19 Rate Blood Pressure 106/79 119/77 119/77 O2 Sat by Pulse 87 90 89 Oximetry 10/06/20 10/06/20 10/06/20 06:20 06:30 06:40 Temperature Pulse Rate 59 L 59 L 64 Pulse Rate [ From Monitor] Respiratory 20 22 27 H Rate Blood Pressure 119/77 119/77 119/77 O2 Sat by Pulse 90 91 93 Oximetry 10/06/20 10/06/20 10/06/20 06:50 07:00 07:10 Temperature Pulse Rate 65 80 66 Pulse Rate [ From Monitor] Respiratory 29 H 22 29 H Rate Blood Pressure 119/77 119/77 146/85 O2 Sat by Pulse 90 87 79 L Oximetry 10/06/20 10/06/20 10/06/20 07:20 07:28 07:30 Temperature 101.1 F H Pulse Rate 65 65 Pulse Rate [ From Monitor] Respiratory 30 H 27 H Rate Blood Pressure 146/85 146/85 O2 Sat by Pulse 81 L 83 L Oximetry 10/06/20 10/06/20 10/06/20 07:40 07:50 08:00 Temperature Pulse Rate 63 67 65 Pulse Rate [ From Monitor] Respiratory 28 H 22 21 Rate Blood Pressure 146/85 146/85 123/77 O2 Sat by Pulse 82 L 90 95 Oximetry 10/06/20 10/06/20 10/06/20 08:10 08:20 08:30 Temperature Pulse Rate 62 62 62 Pulse Rate [ From Monitor] Respiratory 19 22 18 Rate Blood Pressure 117/71 117/71 117/71 O2 Sat by Pulse 89 89 91 Oximetry 10/06/20 10/06/20 10/06/20 08:40 08:50 09:00 Temperature Pulse Rate 61 62 62 Pulse Rate [ 62 From Monitor] Respiratory 20 22 21 Rate Blood Pressure 117/71 117/71 117/71 O2 Sat by Pulse 89 92 87 Oximetry 10/06/20 10/06/20 10/06/20 09:10 09:20 09:30 Temperature Pulse Rate 71 63 62 Pulse Rate [ From Monitor] Respiratory 22 22 20 Rate Blood Pressure 123/71 123/71 123/71 O2 Sat by Pulse 91 88 88 Oximetry 10/06/20 10/06/20 10/06/20 09:40 09:50 10:00 Temperature Pulse Rate 67 65 62 Pulse Rate [ From Monitor] Respiratory 20 18 19 Rate Blood Pressure 123/71 123/71 105/68 O2 Sat by Pulse 92 96 95 Oximetry Constitutional: appears uncomfortable, other (middle aged male with mildly increased respiratory effort at rest on MVS) Eyes: non-icteric ENT: oropharynx moist, other (ETT 24 cm CARY) Neck: supple, no lymphadenopathy, no JVD, other (large circumference) Effort: mildly labored Ascultation: Bilateral: diminished breath sounds, rhonchi Percussion: Bilateral: not dull Cardiovascular: regular rate and rhythm Gastrointestinal: normoactive bowel sounds, soft, non-tender, non-distended (protuberant) Integumentary: normal Extremities: no cyanosis, no edema, pulses normal, no ischemia or petechiae, edema (peripheral) Neurologic: non-focal exam (grossly), pupils equal and round, unable to assess, other (sedated) Psychiatric: other (unable to assess re: AMS) CBC and BMP: 10/06/20 02:09 10/06/20 02:09 ABG, PT/INR, D-dimer: ABG ABG pH 7.349 (7.320-7.450) 10/06/20 02:37 POC ABG pCO2 37.9 mmHg (32.0-48.0) 10/06/20 02:37 POC ABG pO2 75.5 mmHg (83-108) L 10/06/20 02:37 POC ABG HCO3 20.4 10/06/20 02:37 ABG O2 Saturation 93.7 (0-100) 10/06/20 02:37 PT/INR, D-dimer PT 14.9 Sec. (12.2-14.9) 10/04/20 14:16 INR 1.12 (0.87-1.13) 10/04/20 14:16 D-Dimer 2754.80 ng/mlDDU (0-234) H 10/06/20 06:53 Abnormal lab findings: Abnormal Labs 10/02/20 10/02/20 10/02/20 01:01 01:01 01:01 WBC RBC 5.04 H Hgb Hct MCV 81 L MCH 27 L Seg Neuts % (Manual) 85.0 H Lymphocytes % (Manual) 1.0 L Monocytes % (Manual) 11.0 H Nucleated RBC % 1.0 H Seg Neutrophils # Man 9.4 H Lymphocytes # (Manual) 0.1 L Monocytes # (Manual) 1.2 H PT 15.3 H INR 1.16 H Thrombin Time 23.2 H D-Dimer POC ABG pO2 ABG Oxyhemoglobin ABG Sodium ABG Chloride ABG Glucose Carboxyhemoglobin Sodium 133 L Chloride 85.1 L BUN 66 H Creatinine 5.6 H Glucose 292 H POC Glucose Phosphorus Ferritin AST 173 H ALT 139 H Lactate Dehydrogenase Total Creatine Kinase 2544 H CK-MB (CK-2) 14.8 H Troponin T 0.036 H C-Reactive Protein Total Protein Albumin 3.3 L Triglycerides 427 H HDL Cholesterol 31 L PTH Intact Arterial Blood Glucose Arterial Blood Ionized Calcium Urine WBC (Auto) Urine Creatinine Coronavirus (PCR) 10/02/20 10/02/20 10/02/20 02:59 03:51 11:47 WBC RBC Hgb Hct MCV MCH Seg Neuts % (Manual) Lymphocytes % (Manual) Monocytes % (Manual) Nucleated RBC % Seg Neutrophils # Man Lymphocytes # (Manual) Monocytes # (Manual) PT INR Thrombin Time D-Dimer POC ABG pO2 55.2 L ABG Oxyhemoglobin 85.4 L ABG Sodium 132.0 L ABG Chloride 89.0 L ABG Glucose 372 H Carboxyhemoglobin Sodium Chloride BUN Creatinine Glucose POC Glucose Phosphorus Ferritin AST ALT Lactate Dehydrogenase Total Creatine Kinase 2548 H CK-MB (CK-2) Troponin T C-Reactive Protein Total Protein Albumin Triglycerides HDL Cholesterol PTH Intact Arterial Blood Glucose 372 H Arterial Blood Ionized Calcium Urine WBC (Auto) 8.0 H Urine Creatinine Coronavirus (PCR) 10/02/20 10/02/20 10/02/20 11:47 11:47 11:47 WBC RBC Hgb Hct MCV MCH Seg Neuts % (Manual) Lymphocytes % (Manual) Monocytes % (Manual) Nucleated RBC % Seg Neutrophils # Man Lymphocytes # (Manual) Monocytes # (Manual) PT INR Thrombin Time D-Dimer 1023.48 H POC ABG pO2 ABG Oxyhemoglobin ABG Sodium ABG Chloride ABG Glucose Carboxyhemoglobin Sodium Chloride BUN Creatinine Glucose POC Glucose Phosphorus Ferritin 8643.0 H AST ALT Lactate Dehydrogenase 828 H Total Creatine Kinase CK-MB (CK-2) Troponin T C-Reactive Protein 13.60 H Total Protein Albumin Triglycerides HDL Cholesterol PTH Intact Arterial Blood Glucose Arterial Blood Ionized Calcium Urine WBC (Auto) Urine Creatinine Coronavirus (PCR) 10/02/20 10/02/20 10/02/20 18:48 23:51 Unknown WBC RBC Hgb Hct MCV MCH Seg Neuts % (Manual) Lymphocytes % (Manual) Monocytes % (Manual) Nucleated RBC % Seg Neutrophils # Man Lymphocytes # (Manual) Monocytes # (Manual) PT INR Thrombin Time D-Dimer POC ABG pO2 ABG Oxyhemoglobin ABG Sodium ABG Chloride ABG Glucose Carboxyhemoglobin Sodium Chloride BUN Creatinine Glucose POC Glucose 441 H 457 H Phosphorus Ferritin AST ALT Lactate Dehydrogenase Total Creatine Kinase CK-MB (CK-2) Troponin T C-Reactive Protein Total Protein Albumin Triglycerides HDL Cholesterol PTH Intact Arterial Blood Glucose Arterial Blood Ionized Calcium Urine WBC (Auto) Urine Creatinine Coronavirus (PCR) Positive A 10/03/20 10/03/20 10/03/20 05:22 05:25 05:25 WBC RBC Hgb Hct MCV MCH Seg Neuts % (Manual) Lymphocytes % (Manual) Monocytes % (Manual) Nucleated RBC % Seg Neutrophils # Man Lymphocytes # (Manual) Monocytes # (Manual) PT INR Thrombin Time D-Dimer POC ABG pO2 74.3 L ABG Oxyhemoglobin 93.2 L ABG Sodium 133.6 L ABG Chloride 92.0 L ABG Glucose 399 H Carboxyhemoglobin 0.3 L Sodium 135 L Chloride 88.0 L BUN 102 H Creatinine 7.5 H Glucose 383 H POC Glucose Phosphorus Ferritin AST 71 H ALT 88 H Lactate Dehydrogenase Total Creatine Kinase 1597 H CK-MB (CK-2) Troponin T C-Reactive Protein Total Protein Albumin 2.6 L Triglycerides HDL Cholesterol PTH Intact Arterial Blood Glucose 399 H Arterial Blood Ionized Calcium Urine WBC (Auto) Urine Creatinine Coronavirus (PCR) 10/03/20 10/03/20 10/03/20 06:09 06:30 09:06 WBC RBC Hgb Hct MCV MCH Seg Neuts % (Manual) Lymphocytes % (Manual) Monocytes % (Manual) Nucleated RBC % Seg Neutrophils # Man Lymphocytes # (Manual) Monocytes # (Manual) PT INR Thrombin Time D-Dimer POC ABG pO2 ABG Oxyhemoglobin ABG Sodium ABG Chloride ABG Glucose Carboxyhemoglobin Sodium Chloride BUN Creatinine Glucose POC Glucose 360 H 298 H Phosphorus Ferritin AST ALT Lactate Dehydrogenase Total Creatine Kinase CK-MB (CK-2) Troponin T C-Reactive Protein Total Protein Albumin Triglycerides HDL Cholesterol PTH Intact Arterial Blood Glucose Arterial Blood Ionized Calcium Urine WBC (Auto) Urine Creatinine 156.1 H Coronavirus (PCR) 10/03/20 10/03/20 10/03/20 13:07 16:37 21:32 WBC RBC Hgb Hct MCV MCH Seg Neuts % (Manual) Lymphocytes % (Manual) Monocytes % (Manual) Nucleated RBC % Seg Neutrophils # Man Lymphocytes # (Manual) Monocytes # (Manual) PT INR Thrombin Time D-Dimer POC ABG pO2 ABG Oxyhemoglobin ABG Sodium ABG Chloride ABG Glucose Carboxyhemoglobin Sodium Chloride BUN Creatinine Glucose POC Glucose 243 H 229 H 169 H Phosphorus Ferritin AST ALT Lactate Dehydrogenase Total Creatine Kinase CK-MB (CK-2) Troponin T C-Reactive Protein Total Protein Albumin Triglycerides HDL Cholesterol PTH Intact Arterial Blood Glucose Arterial Blood Ionized Calcium Urine WBC (Auto) Urine Creatinine Coronavirus (PCR) 10/03/20 10/04/20 10/04/20 23:09 03:26 04:58 WBC RBC Hgb Hct MCV MCH Seg Neuts % (Manual) Lymphocytes % (Manual) Monocytes % (Manual) Nucleated RBC % Seg Neutrophils # Man Lymphocytes # (Manual) Monocytes # (Manual) PT INR Thrombin Time D-Dimer POC ABG pO2 77.8 L ABG Oxyhemoglobin ABG Sodium ABG Chloride ABG Glucose Carboxyhemoglobin 0.1 L Sodium Chloride 97.1 L BUN 112 H Creatinine 8.2 H Glucose 70 L POC Glucose 150 H Phosphorus 8.10 H Ferritin AST 50 H ALT 66 H Lactate Dehydrogenase Total Creatine Kinase 983 H CK-MB (CK-2) Troponin T C-Reactive Protein Total Protein Albumin 2.6 L Triglycerides HDL Cholesterol PTH Intact Arterial Blood Glucose Arterial Blood Ionized Calcium 4.5 L Urine WBC (Auto) Urine Creatinine Coronavirus (PCR) 10/04/20 10/04/20 10/04/20 04:58 04:58 09:59 WBC 15.7 H RBC Hgb Hct MCV 82 L MCH Seg Neuts % (Manual) Lymphocytes % (Manual) Monocytes % (Manual) Nucleated RBC % Seg Neutrophils # Man Lymphocytes # (Manual) Monocytes # (Manual) PT INR Thrombin Time D-Dimer 2287.60 H POC ABG pO2 ABG Oxyhemoglobin ABG Sodium ABG Chloride ABG Glucose Carboxyhemoglobin Sodium Chloride BUN Creatinine Glucose POC Glucose Phosphorus Ferritin AST ALT Lactate Dehydrogenase Total Creatine Kinase CK-MB (CK-2) Troponin T C-Reactive Protein Total Protein Albumin Triglycerides HDL Cholesterol PTH Intact 140.3 H Arterial Blood Glucose Arterial Blood Ionized Calcium Urine WBC (Auto) Urine Creatinine Coronavirus (PCR) 10/04/20 10/04/20 10/04/20 09:59 09:59 11:35 WBC RBC Hgb Hct MCV MCH Seg Neuts % (Manual) Lymphocytes % (Manual) Monocytes % (Manual) Nucleated RBC % Seg Neutrophils # Man Lymphocytes # (Manual) Monocytes # (Manual) PT INR Thrombin Time D-Dimer POC ABG pO2 ABG Oxyhemoglobin ABG Sodium ABG Chloride ABG Glucose Carboxyhemoglobin Sodium Chloride BUN Creatinine Glucose POC Glucose 126 H Phosphorus Ferritin > 2000.0 H AST ALT Lactate Dehydrogenase 735 H Total Creatine Kinase CK-MB (CK-2) Troponin T C-Reactive Protein 16.40 H Total Protein Albumin Triglycerides HDL Cholesterol PTH Intact Arterial Blood Glucose Arterial Blood Ionized Calcium Urine WBC (Auto) Urine Creatinine Coronavirus (PCR) 10/04/20 10/04/20 10/04/20 14:16 17:17 21:39 WBC RBC Hgb 11.6 L Hct 35.2 L MCV MCH Seg Neuts % (Manual) Lymphocytes % (Manual) Monocytes % (Manual) Nucleated RBC % Seg Neutrophils # Man Lymphocytes # (Manual) Monocytes # (Manual) PT INR Thrombin Time D-Dimer POC ABG pO2 ABG Oxyhemoglobin ABG Sodium ABG Chloride ABG Glucose Carboxyhemoglobin Sodium Chloride BUN Creatinine Glucose POC Glucose 178 H 160 H Phosphorus Ferritin AST ALT Lactate Dehydrogenase Total Creatine Kinase CK-MB (CK-2) Troponin T C-Reactive Protein Total Protein Albumin Triglycerides HDL Cholesterol PTH Intact Arterial Blood Glucose Arterial Blood Ionized Calcium Urine WBC (Auto) Urine Creatinine Coronavirus (PCR) 10/05/20 10/05/20 10/05/20 00:13 03:13 05:04 WBC RBC Hgb Hct MCV MCH Seg Neuts % (Manual) Lymphocytes % (Manual) Monocytes % (Manual) Nucleated RBC % Seg Neutrophils # Man Lymphocytes # (Manual) Monocytes # (Manual) PT INR Thrombin Time D-Dimer POC ABG pO2 ABG Oxyhemoglobin ABG Sodium ABG Chloride ABG Glucose 119 H Carboxyhemoglobin 0.3 L Sodium Chloride BUN 90 H Creatinine 5.9 H Glucose 107 H POC Glucose 141 H Phosphorus Ferritin AST ALT Lactate Dehydrogenase Total Creatine Kinase 482 H CK-MB (CK-2) Troponin T C-Reactive Protein Total Protein Albumin Triglycerides HDL Cholesterol PTH Intact Arterial Blood Glucose 119 H Arterial Blood Ionized Calcium 4.4 L Urine WBC (Auto) Urine Creatinine Coronavirus (PCR) 10/05/20 10/05/20 10/05/20 11:33 18:04 21:10 WBC RBC Hgb Hct MCV MCH Seg Neuts % (Manual) Lymphocytes % (Manual) Monocytes % (Manual) Nucleated RBC % Seg Neutrophils # Man Lymphocytes # (Manual) Monocytes # (Manual) PT INR Thrombin Time D-Dimer POC ABG pO2 ABG Oxyhemoglobin ABG Sodium ABG Chloride ABG Glucose Carboxyhemoglobin Sodium Chloride BUN Creatinine Glucose POC Glucose 136 H 185 H 162 H Phosphorus Ferritin AST ALT Lactate Dehydrogenase Total Creatine Kinase CK-MB (CK-2) Troponin T C-Reactive Protein Total Protein Albumin Triglycerides HDL Cholesterol PTH Intact Arterial Blood Glucose Arterial Blood Ionized Calcium Urine WBC (Auto) Urine Creatinine Coronavirus (PCR) 10/06/20 10/06/20 10/06/20 02:09 02:09 02:09 WBC 16.3 H RBC Hgb 11.3 L Hct 34.7 L MCV 83 L MCH 27 L Seg Neuts % (Manual) Lymphocytes % (Manual) Monocytes % (Manual) Nucleated RBC % Seg Neutrophils # Man Lymphocytes # (Manual) Monocytes # (Manual) PT INR Thrombin Time D-Dimer POC ABG pO2 ABG Oxyhemoglobin ABG Sodium ABG Chloride ABG Glucose Carboxyhemoglobin Sodium Chloride BUN 107 H Creatinine 6.6 H Glucose 175 H POC Glucose Phosphorus Ferritin AST 52 H ALT Lactate Dehydrogenase 802 H Total Creatine Kinase CK-MB (CK-2) Troponin T C-Reactive Protein 27.00 H Total Protein 5.2 L Albumin 2.3 L Triglycerides HDL Cholesterol PTH Intact Arterial Blood Glucose Arterial Blood Ionized Calcium Urine WBC (Auto) Urine Creatinine Coronavirus (PCR) 10/06/20 10/06/20 10/06/20 02:09 02:37 05:12 WBC RBC Hgb Hct MCV MCH Seg Neuts % (Manual) Lymphocytes % (Manual) Monocytes % (Manual) Nucleated RBC % Seg Neutrophils # Man Lymphocytes # (Manual) Monocytes # (Manual) PT INR Thrombin Time D-Dimer POC ABG pO2 75.5 L ABG Oxyhemoglobin 93.3 L ABG Sodium ABG Chloride ABG Glucose 165 H Carboxyhemoglobin 0.1 L Sodium Chloride BUN Creatinine Glucose POC Glucose 142 H Phosphorus Ferritin AST ALT Lactate Dehydrogenase Total Creatine Kinase CK-MB (CK-2) Troponin T C-Reactive Protein Total Protein Albumin Triglycerides 392 H HDL Cholesterol PTH Intact Arterial Blood Glucose 165 H Arterial Blood Ionized Calcium Urine WBC (Auto) Urine Creatinine Coronavirus (PCR) 10/06/20 06:53 WBC RBC Hgb Hct MCV MCH Seg Neuts % (Manual) Lymphocytes % (Manual) Monocytes % (Manual) Nucleated RBC % Seg Neutrophils # Man Lymphocytes # (Manual) Monocytes # (Manual) PT INR Thrombin Time D-Dimer 2754.80 H POC ABG pO2 ABG Oxyhemoglobin ABG Sodium ABG Chloride ABG Glucose Carboxyhemoglobin Sodium Chloride BUN Creatinine Glucose POC Glucose Phosphorus Ferritin AST ALT Lactate Dehydrogenase Total Creatine Kinase CK-MB (CK-2) Troponin T C-Reactive Protein Total Protein Albumin Triglycerides HDL Cholesterol PTH Intact Arterial Blood Glucose Arterial Blood Ionized Calcium Urine WBC (Auto) Urine Creatinine Coronavirus (PCR) Chest x-ray: image reviewed (persistent non-proogressive bilateral infiltrates from yesterday) Allied health notes reviewed: nursing
[2020-10-06] MEDS: SENNOSIDES/DOCUSATE SODIUM 8.6/50 MG TAB FEEDTUBE SCH ×2 (11:35→21:07)
[2020-10-06] MEDS: FAMOTIDINE 20 MG/2 ML INJ IV SCH (12:31)
[2020-10-06] MEDS: HEPARIN/ 0.45% NACL DRIP 25,000 UNIT/500 ML BAG IV SCH (12:31)
--- NOTE | 2020-10-06 13:00 | Progress Note ---
Assessment and Plan 1. Acute kidney injury: OLIVIA in the setting of severe Covid infection. Received IV contrast 10/02. FeNa low. Renal US negative for hydro. Monitor renal function. BUN and Creatinine level remains high. Avoid nephrotoxic agents. Meds dosage based on GFR. Monitor for [employer] needs. Patient was started on hemodialysis due to worsening renal function. Hemodialysis: 10/04. HD today. 2. FEN: Monitor lytes and volume status. 3. Acute respiratory failure with hypoxemia: 2/2 Covid PNA. Currently proned, on vent, wean as tolerated. 4. Covid PNA: Followed by ID. 5. Acute encephalopathy, POA: Multifactorial. R/O Seizure. CT brain remarkable for left frontal hypodensity. EEG suggestive of encephalopathy. R/O CVA. 6. Rhabdomyolysis: Trend CK, improving. 7. Elevated ALT & AST: Trend. 8. DM type 2: Monitor. Subjective: Patient was seen and examined at the bedside. Examination: General appearance: well-developed, appears stated age, intubated on vent, proned HEENT: atraumatic, no icterus Neck: trachea midline Respiratory: MV sounds Heart: S1S2, regular, no murmur Abdomen: soft, bowel sounds heard, NT Integumentary: no obvious rash Neurologic: not responding Ext: no edema : Blanchard catheter Hemodialysis access: R IJ temp catheter Subjective Date of service: 10/06/20 Principal diagnosis: Ac hypoxemic resp; COVID-19; Pneumonia; OLIVIA; Ac ence phalopathy; NSTEMI Objective - Vital Signs Vital signs: Vital Signs - 12hr 10/06/20 10/06/20 10/06/20 01:00 01:10 01:20 Temperature Pulse Rate 56 L 62 81 Pulse Rate [ From Monitor] Respiratory 21 22 18 Rate Blood Pressure 127/79 127/79 127/79 O2 Sat by Pulse 95 96 85 Oximetry 10/06/20 10/06/20 10/06/20 01:30 01:40 01:50 Temperature Pulse Rate 66 62 59 L Pulse Rate [ 52 L From Monitor] Respiratory 23 21 23 Rate Blood Pressure 127/79 127/79 127/79 O2 Sat by Pulse 94 94 91 Oximetry 10/06/20 10/06/20 10/06/20 02:00 02:10 02:20 Temperature Pulse Rate 69 63 64 Pulse Rate [ From Monitor] Respiratory 26 H 22 22 Rate Blood Pressure 108/78 127/79 127/79 O2 Sat by Pulse 96 91 91 Oximetry 10/06/20 10/06/20 10/06/20 02:30 02:34 02:40 Temperature Pulse Rate 110 H 91 H Pulse Rate [ From Monitor] Respiratory 12 20 26 H Rate Blood Pressure 127/79 108/78 O2 Sat by Pulse 92 95 Oximetry 10/06/20 10/06/20 10/06/20 02:50 03:00 03:10 Temperature Pulse Rate 86 64 62 Pulse Rate [ From Monitor] Respiratory 26 H 23 22 Rate Blood Pressure 108/78 110/83 110/83 O2 Sat by Pulse 80 L 87 90 Oximetry 10/06/20 10/06/20 10/06/20 03:11 03:20 03:30 Temperature 100.6 F H Pulse Rate 60 59 L Pulse Rate [ From Monitor] Respiratory 20 17 Rate Blood Pressure 110/83 110/83 O2 Sat by Pulse 88 86 Oximetry 10/06/20 10/06/20 10/06/20 03:40 03:50 04:00 Temperature Pulse Rate 61 60 60 Pulse Rate [ 52 L From Monitor] Respiratory 19 20 Rate Blood Pressure 110/83 110/83 106/79 O2 Sat by Pulse 97 95 93 Oximetry 10/06/20 10/06/20 10/06/20 04:10 04:20 04:30 Temperature Pulse Rate 63 61 62 Pulse Rate [ From Monitor] Respiratory 21 22 Rate Blood Pressure 106/79 106/79 106/79 O2 Sat by Pulse 93 91 91 Oximetry 10/06/20 10/06/20 10/06/20 04:36 04:40 04:50 Temperature Pulse Rate 62 62 65 Pulse Rate [ From Monitor] Respiratory 20 15 Rate Blood Pressure 106/79 106/79 106/79 O2 Sat by Pulse 90 90 89 Oximetry 10/06/20 10/06/20 10/06/20 05:00 05:10 05:20 Temperature Pulse Rate 61 62 61 Pulse Rate [ From Monitor] Respiratory 21 21 20 Rate Blood Pressure 106/79 106/79 106/79 O2 Sat by Pulse 91 89 88 Oximetry 10/06/20 10/06/20 10/06/20 05:30 05:40 05:50 Temperature Pulse Rate 61 58 L 60 Pulse Rate [ From Monitor] Respiratory 18 Rate Blood Pressure 106/79 106/79 106/79 O2 Sat by Pulse 88 88 87 Oximetry 10/06/20 10/06/20 10/06/20 06:00 06:10 06:20 Temperature Pulse Rate 61 58 L 59 L Pulse Rate [ From Monitor] Respiratory 21 19 20 Rate Blood Pressure 119/77 119/77 119/77 O2 Sat by Pulse 90 89 90 Oximetry 10/06/20 10/06/20 10/06/20 06:30 06:40 06:50 Temperature Pulse Rate 59 L 64 65 Pulse Rate [ From Monitor] Respiratory 22 27 H 29 H Rate Blood Pressure 119/77 119/77 119/77 O2 Sat by Pulse 91 93 90 Oximetry 10/06/20 10/06/20 10/06/20 07:00 07:10 07:20 Temperature Pulse Rate 80 66 65 Pulse Rate [ From Monitor] Respiratory 22 29 H 30 H Rate Blood Pressure 119/77 146/85 146/85 O2 Sat by Pulse 87 79 L 81 L Oximetry 10/06/20 10/06/20 10/06/20 07:28 07:30 07:40 Temperature 101.1 F H Pulse Rate 65 63 Pulse Rate [ From Monitor] Respiratory 27 H 28 H Rate Blood Pressure 146/85 146/85 O2 Sat by Pulse 83 L 82 L Oximetry 10/06/20 10/06/20 10/06/20 07:50 08:00 08:10 Temperature Pulse Rate 67 65 62 Pulse Rate [ From Monitor] Respiratory 22 21 19 Rate Blood Pressure 146/85 123/77 117/71 O2 Sat by Pulse 90 95 89 Oximetry 10/06/20 10/06/20 10/06/20 08:20 08:30 08:40 Temperature Pulse Rate 62 62 61 Pulse Rate [ From Monitor] Respiratory 22 18 20 Rate Blood Pressure 117/71 117/71 117/71 O2 Sat by Pulse 89 91 89 Oximetry 10/06/20 10/06/20 10/06/20 08:50 09:00 09:10 Temperature Pulse Rate 62 62 71 Pulse Rate [ 62 From Monitor] Respiratory 22 21 22 Rate Blood Pressure 117/71 117/71 123/71 O2 Sat by Pulse 92 87 91 Oximetry 10/06/20 10/06/20 10/06/20 09:20 09:30 09:40 Temperature Pulse Rate 63 62 67 Pulse Rate [ From Monitor] Respiratory 22 20 20 Rate Blood Pressure 123/71 123/71 123/71 O2 Sat by Pulse 88 88 92 Oximetry 10/06/20 10/06/20 10/06/20 09:50 10:00 10:10 Temperature Pulse Rate 65 62 61 Pulse Rate [ From Monitor] Respiratory 18 19 22 Rate Blood Pressure 123/71 105/68 105/68 O2 Sat by Pulse 96 95 95 Oximetry 10/06/20 10/06/20 10/06/20 10:20 10:30 10:40 Temperature Pulse Rate 62 62 62 Pulse Rate [ From Monitor] Respiratory 20 21 18 Rate Blood Pressure 105/68 105/68 105/68 O2 Sat by Pulse 96 95 95 Oximetry 10/06/20 10/06/20 10/06/20 10:50 11:00 11:10 Temperature Pulse Rate 61 60 59 L Pulse Rate [ From Monitor] Respiratory 20 19 20 Rate Blood Pressure 105/68 106/66 106/66 O2 Sat by Pulse 95 93 95 Oximetry 10/06/20 10/06/20 10/06/20 11:20 11:30 11:40 Temperature Pulse Rate 60 58 L 59 L Pulse Rate [ From Monitor] Respiratory 20 20 20 Rate Blood Pressure 106/66 106/66 106/66 O2 Sat by Pulse 95 94 93 Oximetry 10/06/20 10/06/20 10/06/20 11:50 11:51 12:00 Temperature 100.0 F H Pulse Rate 58 L 60 Pulse Rate [ From Monitor] Respiratory 22 20 Rate Blood Pressure 106/66 110/67 O2 Sat by Pulse 94 94 Oximetry 10/06/20 10/06/20 12:10 12:20 Temperature Pulse Rate 56 L 59 L Pulse Rate [ From Monitor] Respiratory 22 23 Rate Blood Pressure 110/67 110/67 O2 Sat by Pulse 94 94 Oximetry - Lab 10/06/20 02:09 10/06/20 02:09 Most recent lab results ABG pH 7.349 (7.320-7.450) 10/06/20 02:37 ABG O2 Saturation 93.7 (0-100) 10/06/20 02:37 Calcium 9.0 mg/dL (8.4-10.2) 10/06/20 02:09 Phosphorus 8.10 mg/dL (2.5-4.5) H 10/04/20 04:58 Urine Creatinine 156.1 mg/dL (0.1-20.0) H 10/03/20 06:30 Urine Sodium 22 mmol/L 10/03/20 06:30 Medications & Allergies - Medications Allergies/Adverse Reactions: Allergies No Known Allergies Allergy (Verified 10/02/20 01:44) Active Medications: Generic Name Dose Route Start Last Admin Trade Name Freq PRN Reason Stop Dose Admin Acetaminophen 650 mg 10/02/20 05:23 10/04/20 10:58 Acetaminophen 325 Mg Tab PO 650 mg Q6H PRN Administration Pain MILD(1-3)/Fever >100.5/[place] Lipase/Protease/Amylase 1 each 10/04/20 12:06 Lipase 10,500/Protease 25,000/Amylase 43,750 (Units) Dr Cap FEEDTUBE PRN PRN For Clogged Feeding Tube Bisacodyl 10 mg 10/02/20 05:23 Bisacodyl 10 Mg Rect Supp RI QDAY PRN Constipation Dexamethasone 6 mg 10/03/20 04:00 10/06/20 03:47 Dexamethasone 4 Mg/Ml Vial IV 10/12/20 04:01 6 mg Q24H MUSTAPHA Administration Dextrose 50 ml 10/02/20 06:44 Dextrose 50% In Water (25gm) 50 Ml Syringe IV Q30MIN PRN Hypoglycemia Protocol Famotidine 20 mg 10/02/20 10:00 10/06/20 12:31 Famotidine 20 Mg/2 Ml Inj IV 20 mg DAILY MUSTAPHA Administration Fentanyl 50 mcg 10/02/20 00:53 Fentanyl 100 Mcg/2 Ml Inj IV Q10MIN PRN ANALGESIA Glycopyrrolate 1 mg 10/06/20 14:00 Glycopyrrolate 1 Mg Tab PO TID MUSTAPHA Heparin Sodium (Porcine) 2,000 unit 10/04/20 12:18 Heparin 10,000 Units/10 Ml Vial IV RADHA PRN hemodialysis Heparin Sodium (Porcine) 3,400 unit 10/04/20 12:51 Heparin 10,000 Units/10 Ml Vial 40 unit/kg (3400 unit) IV Q6H PRN Anti-Xa Assay < 0.1 units/ml Hydrophilic Ointment 1 applic 10/02/20 00:53 Lip Therapy Vaseline TP Q2HR PRN Dry Lips Fentanyl Citrate 2,000 mcg in 100 mls @ 4.2 mls/hr 10/02/20 01:00 10/06/20 11:47 Fentanyl Drip Premix IV 4 mcg/kg/hr TITR MUSTAPHA 16.8 mls/hr Administration Protocol 1 MCG/KG/HR Propofol 1,000 mg in 100 mls @ 2.52 mls/hr 10/02/20 03:00 10/06/20 12:30 Diprivan 10 Mg/Ml IV 50 mcg/kg/min TITR MUSTAPHA 25.2 mls/hr Administration Protocol 5 MCG/KG/MIN Ceftriaxone Sodium 2 gm in 100 mls @ 200 mls/hr 10/03/20 03:30 10/06/20 03:46 Rocephin/Ns 2 Gm/100 Ml IV 10/07/20 03:59 200 mls/hr Q24H MUSTAPHA Administration Protocol Azithromycin 500 mg in 250 mls @ 250 mls/hr 10/03/20 04:00 10/06/20 03:47 Zithromax/Ns IV 10/07/20 04:59 250 mls/hr Q24H MUSTAPHA Administration Protocol TOCILIZUMAB 600 mg/ Sodium 130 mls @ 120 mls/hr 10/03/20 10:33 Chloride IV 10/03/20 11:37 ONCE ONE Sodium Chloride 100 mls @ 999 mls/hr 10/04/20 12:18 Nacl 0.9% IV RADHA PRN Hypotension Heparin Sodium/Sodium Chloride 25,000 unit in 500 mls @ 20 mls/hr 10/04/20 14:00 10/06/20 12:31 Heparin/ 0.45% Nacl-25,000 Unit/500 Ml IV 900 units/hr TITRATE MUSTAPHA 18 mls/hr Administration Protocol 1,000 UNITS/HR Insulin Glargine 20 units 10/03/20 22:00 10/05/20 22:10 Insulin Glargine 100 Units/Ml SUB-Q 20 units QHS MUSTAPHA Administration Insulin Human Lispro 0 unit 10/02/20 12:00 10/06/20 11:46 Insulin Lispro 100 Unit/Ml SUB-Q 3 unit Q6HR MUSTAPHA Administration Protocol Magnesium Hydroxide 30 ml 10/02/20 05:23 Magnesium Hydroxide (Mom) Oral Liqd Udc PO Q4H PRN Constipation Metoclopramide HCl 5 mg 10/02/20 05:53 Metoclopramide 10 Mg Tab PO Q6H PRN Nausea And Vomiting Midazolam HCl 2 mg 10/02/20 09:48 Midazolam 2 Mg/2 Ml Inj IV Q10MIN PRN Sedation Multi-Ingred Cream/Lotion/Oil/Oint 1 applic 10/02/20 00:53 Mineral Oil/Petrolatum, White Ophth Oint 3.5 Gm OU Q4HR PRN Dry Eye(s) Ondansetron HCl 4 mg 10/02/20 05:23 Ondansetron 4 Mg/2 Ml Inj IV Q8H PRN Nausea And Vomiting Promethazine HCl 25 mg 10/02/20 05:23 Promethazine 25 Mg Rect Supp RI Q6H PRN Nausea And Vomiting Scopolamine 1 each 10/06/20 13:00 Scopolamine Transdermal Patch 72 Hr TD Q3D MUSTAPHA Senna/Docusate Sodium 1 tab 10/02/20 22:00 10/06/20 11:35 Sennosides/Docusate Sodium 8.6/50 Mg Tab FEEDTUBE 1 tab BID MUSTAPHA Administration Simple Syrup 15 ml 10/04/20 12:06 Simple Syrup 15 Ml FEEDTUBE PRN PRN Hypoglycemia Simple Syrup 30 ml 10/04/20 12:06 Simple Syrup 15 Ml FEEDTUBE PRN PRN Hypoglycemia Sodium Bicarbonate 325 mg 10/04/20 12:06 Sodium Bicarbonate 325 Mg Tab FEEDTUBE PRN PRN For Clogged Feeding Tube Sodium Chloride 10 ml 10/02/20 10:00 10/06/20 12:31 Sodium Chloride 0.9% 10 Ml Flush Syringe IV 10 ml BID MUSTAPHA Administration Sodium Chloride 10 ml 10/02/20 05:23 10/06/20 03:48 Sodium Chloride 0.9% 10 Ml Flush Syringe IV 10 ml PRN PRN Administration LINE FLUSH
--- NOTE | 2020-10-06 13:38 | Progress Note ---
Assessment and Plan Assessment and plan: This is a 50-year-old male with HTN, DM who was diagnosed with COVID-19 approximately 1 week prior to presentation admitted for COVID-19 pneumonia, acute respiratory failure, rule out CVA, acute encephalopathy, sepsis, OLIVIA. pMX: HTN, DM PSX: Unknown Neuro: Acute encephalopathy, rule out CVA -Neurology consulted, appreciate recommendations -Goal RASS -3 to -4 while proned -Sedated with fentanyl and propofol -MRI brain or CT brain pending as patient is too unstable at this time -10/02 CT head with abnormal finding, see reading -10/02 CTA head, see report -10/02 CTA neck, see report -10/02 carotid Doppler ultrasound, see report -EEG pending Cardiology: SRSB, H/O HTN -Blood pressure monitoring per protocol -Patient is now normotensive Respiratory: Acute hypoxic respiratory failure -CM consulted, patient recommendations -OETT 7.5 @ 24 lips on AC Rate 20, PEEP 14, TV 500, FiO2 100% -10/06 CXR reviewed -10/06 ABG 7.3/37/75.5/20 -Serial ABG and CXR -Pulmanory hygiene -VAP bundle -SAT/SBT when able GI: Transaminitis -GI consulted, appreciate recommendations -10/02 abdominal ultrasound shows hepatomegaly, mild splenomegaly and trace perihepatic ascites, see report -No recorded BM since admit however patient had been on trickle feeds till today -BR: As needed MOM/Dulcolax, Senokot -PPI -Trend LFTs : OLIVIA 2/2 COVID 19 with underlying vasomotor nephropathy, acute rhabdomyolysis -Nephrology consulted, patient recommendations -Daily weights -Last 24-hour fluid balance positive 343 mL -Avoid nephrotoxic medications -Renally dose medications -patient received contrast on 10/02 -Initiated hemodialysis 10/04 -HD per nephrology -Trend CK, BMP Endo: Hyperglycemia, h/o DM -Hemoglobin A1c pending -SSI, Accu-Cheks every 6 -Lantus -Avoid hypoglycemia Heme: Elevated D-dimer -Bilateral lower leg Doppler ultrasound negative for DVT/S VT -Transfuse for hemoglobin less than 7 -Systemic anticoagulation with heparin -Trend CBC ID: Sepsis, COVID-19 pneumonia -Infectious disease consulted, appreciate recommendations -Contact/isolation precautions -Steroids (10/03 through 10/13) -Ceftriaxone azithromycin for 5 days (10/03 through 10/07) -Awaiting Actemra x1 which was ordered by infectious disease but has been out of stock -Pulmonary hygiene with VAP bundle -Wean mechanical ventilation as tolerated -Vitamin D/zinc/vitamin C -Patient is on a candidate for remdesivir due to renal function -Trend COVID-19 inflammatory markers The high probability of a clinically significant, sudden or life threatening deterioration of the [PULMONARY, NEUROLOGY] system(s) required my full and direct attention, intervention and personal management. The aggregate critical care time was [90] minutes. This time is in addition to time spent performing reported procedures but includes the following: [X] Data Review and interpretation [X] Patient assessment and monitoring of vital signs [X] Documentation [X] Medication orders and management History Interval history: This is a 50-year-old male with HTN, DM who presented to the emergency department on 10/02 s/p being found unresponsive by his family with last known well at 8 PM on 09/30/2020 and was diagnosed with COVID-19 a week prior to presentation. Work-up in the emergency department revealed CK of 2554, transaminitis, elevated troponin, elevated BUN/creatinine and CT scan of the head showed subcortical white matter hypodensity in the right frontal lobe with no acute bleed and CXR showed bilateral pneumonia. Patient was admitted to the hospitalist service with consults to CCM, infectious disease, GI and nephrology as a COVID-19 PUI, OLIVIA, rhabdomyolysis, elevated liver enzymes, troponin, acute hypoxic respiratory failure with rule out CVA. 10/03: Patient continues on full ventilator support. Continues on steroids. Recommend Actemra given elevated CRP and intubation. Continue to monitor renal function. Cloth Boil Off Machine Operator following patient may need dialysis support but will defer to jewelry bench molder. Will adjust insulin for better blood sugar control. GI input noted: LFT improving, consistent with combination of mild ischemic hepatitis and related to his covid infection, Hepatic synthetic function intact continue supportive care, avoid hepatotoxins and liver enzymes should continue to gradually normalize" Neurologist input is also noted recommending an MRI for further evaluation of a bnormal CT head finding. 10/04: Patient seen and examined. D-dimer is elevated. Will start on heparin drip until final embolism is ruled out and DVT is ruled out. Will check creatinine kinase to ensure improvement in the rhabdomyolysis. Called family, unable to Obtain AND COULD NOT LEAVE A MESSAGE PER NURSE PATIENT DOES WAKE UP 10/05: Patient seen and examined, remains on full ventilatory support. Rhabdomylsis, improving, Patient started on HD, Awaiting MRI for further evaluation. CXR done yesterday showed worsening bilateral infiltrate. ID input noted, Patient still following commands some when off sedation. - Continue Dexamethasone. - Awaiting Acetmara- Out of stock for now in the hospital - Renal function precludes Remdesivir - Continue heparin drip considering elevated D.dimer till VTE ruled out. 10/06: This morning has some examination patient sedated on propofol and fentanyl, MV with a PEEP of 14 and 80% FiO2. T-max 101.1. Patient still awaiting Actemra dose. Patient is prone at the time of my examination and will be supine at 1330. Hospitalist Physical - Constitutional Vitals: Temp Pulse Resp BP Pulse Ox 100.0 F H 59 L 23 110/67 94 10/06/20 11:51 10/06/20 12:20 10/06/20 12:20 10/06/20 12:20 10/06/20 12:20 General appearance: Present: other (Intubated and sedated) - EENT Eyes: Present: PERRL ENT: clear oral mucosa - Respiratory Respiratory effort: normal Respiratory: bilateral: diminished, rhonchi - Cardiovascular Rhythm: regular - Extremities Extremities: no ischemia, pulses intact, pulses symmetrical, normal temperature, normal color Extremity abnormal: edema Peripheral Pulses: within normal limits - Abdominal General gastrointestinal: soft, non-tender, non-distended - Integumentary Integumentary: Present: warm, dry - Psychiatric Psychiatric: other (sedated) - Neurologic Neurologic: other (sedated) - Additional findings Additional findings: Patient was proned at the time of my examination, examination is limited - Allied Health Allied health notes reviewed: nursing, RT, social work HEART Score - HEART Score Troponin: Troponin T 0.036 ng/mL (0.00-0.029) H 10/02/20 01:01 Results - Labs CBC & Chem 7: 10/06/20 02:09 10/06/20 02:09 Labs: Laboratory Last Values WBC 16.3 K/mm3 (4.5-11.0) H 10/06/20 02:09 RBC 4.17 M/mm3 (3.65-5.03) 10/06/20 02:09 Hgb 11.3 gm/dl (11.8-15.2) L 10/06/20 02:09 Hct 34.7 % (35.5-45.6) L 10/06/20 02:09 MCV 83 fl (84-94) L 10/06/20 02:09 MCH 27 pg (28-32) L 10/06/20 02:09 MCHC 32 % (32-34) 10/06/20 02:09 RDW 14.9 % (13.2-15.2) 10/06/20 02:09 Plt Count 248 K/mm3 (140-440) 10/06/20 02:09 Add Manual Diff Complete 10/02/20 01:01 Total Counted 100 10/02/20 01:01 Seg Neuts % (Manual) 85.0 % (40.0-70.0) H 10/02/20 01:01 Band Neutrophils % 3.0 % 10/02/20 01:01 Lymphocytes % (Manual) 1.0 % (13.4-35.0) L 10/02/20 01:01 Monocytes % (Manual) 11.0 % (0.0-7.3) H 10/02/20 01:01 Nucleated RBC % 1.0 % (0.0-0.9) H 10/02/20 01:01 Seg Neutrophils # Man 9.4 K/mm3 (1.8-7.7) H 10/02/20 01:01 Band Neutrophils # 0.3 K/mm3 10/02/20 01:01 Lymphocytes # (Manual) 0.1 K/mm3 (1.2-5.4) L 10/02/20 01:01 Abs React Lymphs (Man) 0.0 K/mm3 10/02/20 01:01 Monocytes # (Manual) 1.2 K/mm3 (0.0-0.8) H 10/02/20 01:01 Eosinophils # (Manual) 0.0 K/mm3 (0.0-0.4) 10/02/20 01:01 Basophils # (Manual) 0.0 K/mm3 (0.0-0.1) 10/02/20 01:01 Metamyelocytes # 0.0 K/mm3 10/02/20 01:01 Myelocytes # 0.0 K/mm3 10/02/20 01:01 Promyelocytes # 0.0 K/mm3 10/02/20 01:01 Blast Cells # 0.0 K/mm3 10/02/20 01:01 WBC Morphology Not Reportable 10/02/20 01:01 Hypersegmented Neuts Not Reportable 10/02/20 01:01 Hyposegmented Neuts Not Reportable 10/02/20 01:01 Hypogranular Neuts Not Reportable 10/02/20 01:01 Smudge Cells Not Reportable 10/02/20 01:01 Toxic Granulation Not Reportable 10/02/20 01:01 Toxic Vacuolation Not Reportable 10/02/20 01:01 Dohle Bodies Not Reportable 10/02/20 01:01 Pelger-Huet Anomaly Not Reportable 10/02/20 01:01 Yohan Rods Not Reportable 10/02/20 01:01 Platelet Estimate Consistent w auto 10/02/20 01:01 Clumped Platelets Not Reportable 10/02/20 01:01 Plt Clumps, EDTA Not Reportable 10/02/20 01:01 Large Platelets Few 10/02/20 01:01 Giant Platelets Not Reportable 10/02/20 01:01 Platelet Satelliting Not Reportable 10/02/20 01:01 Plt Morphology Comment Not Reportable 10/02/20 01:01 RBC Morphology Not Reportable 10/02/20 01:01 Dimorphic RBCs Not Reportable 10/02/20 01:01 Polychromasia Not Reportable 10/02/20 01:01 Hypochromasia Not Reportable 10/02/20 01:01 Poikilocytosis Not Reportable 10/02/20 01:01 Anisocytosis 1+ 10/02/20 01:01 Microcytosis Not Reportable 10/02/20 01:01 Macrocytosis Not Reportable 10/02/20 01:01 Spherocytes Not Reportable 10/02/20 01:01 Pappenheimer Bodies Not Reportable 10/02/20 01:01 Sickle Cells Not Reportable 10/02/20 01:01 Target Cells Not Reportable 10/02/20 01:01 Tear Drop Cells Not Reportable 10/02/20 01:01 Ovalocytes Not Reportable 10/02/20 01:01 Helmet Cells Not Reportable 10/02/20 01:01 [place] Bodies Not Reportable 10/02/20 01:01 [place] Rings Not Reportable 10/02/20 01:01 [place] Cells Not Reportable 10/02/20 01:01 Bite Cells Not Reportable 10/02/20 01:01 Crenated Cell Not Reportable 10/02/20 01:01 Elliptocytes Not Reportable 10/02/20 01:01 Acanthocytes (Spur) Not Reportable 10/02/20 01:01 Rouleaux Not Reportable 10/02/20 01:01 Hemoglobin C Crystals Not Reportable 10/02/20 01:01 Schistocytes Not Reportable 10/02/20 01:01 Malaria parasites Not Reportable 10/02/20 01:01 [place] Bodies Not Reportable 10/02/20 01:01 Hem Pathologist Commnt No 10/02/20 01:01 PT 14.9 Sec. (12.2-14.9) 10/04/20 14:16 INR 1.12 (0.87-1.13) 10/04/20 14:16 APTT 28.5 Sec. (24.2-36.6) 10/04/20 14:16 Thrombin Time 23.2 Sec. (15.1-19.6) H 10/02/20 01:01 D-Dimer 2754.80 ng/mlDDU (0-234) H 10/06/20 06:53 Heparin Anti-Xa Level 0.33 U.I./ml (0.3-0.7) 10/06/20 06:53 ABG pH 7.349 (7.320-7.450) 10/06/20 02:37 POC ABG pCO2 37.9 mmHg (32.0-48.0) 10/06/20 02:37 POC ABG pO2 75.5 mmHg (83-108) L 10/06/20 02:37 POC ABG HCO3 20.4 10/06/20 02:37 ABG O2 Saturation 93.7 (0-100) 10/06/20 02:37 POC ABG Base Excess -4.7 10/06/20 02:37 ABG Hemoglobin 12.3 (12.0-17.5) 10/06/20 02:37 ABG Oxyhemoglobin 93.3 (94-98) L 10/06/20 02:37 ABG Methemoglobin 0.3 (0.0-1.5) 10/06/20 02:37 ABG Sodium 137.6 mmol/L (136.0-145.0) 10/06/20 02:37 ABG Potassium 4.0 mmol/L (3.40-4.50) 10/06/20 02:37 ABG Chloride 103.0 mmol/L (98-107) 10/06/20 02:37 ABG Glucose 165 mg/dL (65-95) H 10/06/20 02:37 Carboxyhemoglobin 0.1 (0.5-1.5) L 10/06/20 02:37 FiO2 % 100.0 10/06/20 02:37 Sodium 142 mmol/L (137-145) 10/06/20 02:09 Potassium 4.6 mmol/L (3.6-5.0) 10/06/20 02:09 Chloride 98.2 mmol/L (98-107) 10/06/20 02:09 Carbon Dioxide 22 mmol/L (22-30) 10/06/20 02:09 Anion Gap 26 mmol/L 10/06/20 02:09 BUN 107 mg/dL (9-20) H 10/06/20 02:09 Creatinine 6.6 mg/dL (0.8-1.3) H 10/06/20 02:09 Estimated GFR 11 ml/min 10/06/20 02:09 BUN/Creatinine Ratio 16 % 10/06/20 02:09 Glucose 175 mg/dL (75-100) H 10/06/20 02:09 POC Glucose 166 mg/dL (70-105) H 10/06/20 11:22 Calcium 9.0 mg/dL (8.4-10.2) 10/06/20 02:09 Phosphorus 8.10 mg/dL (2.5-4.5) H 10/04/20 04:58 Ferritin > 2000.0 ng/mL (30.0-300.0) H 10/06/20 10:38 Total Bilirubin 0.30 mg/dL (0.1-1.2) 10/06/20 02:09 Direct Bilirubin < 0.2 mg/dL (0-0.2) 10/03/20 05:25 Indirect Bilirubin 0.1 mg/dL 08/06/21 05:25 AST 52 units/L (5-40) H 10/06/20 02:09 ALT 50 units/L (7-56) 10/06/20 02:09 Alkaline Phosphatase 80 units/L (35-129) 10/06/20 02:09 Lactate Dehydrogenase 802 units/L (91-180) H 10/06/20 02:09 Total Creatine Kinase 482 units/L (55-170) H 10/05/20 05:04 CK-MB (CK-2) 14.8 ng/mL (0.0-4.0) H 10/02/20 01:01 CK-MB (CK-2) Rel Index 0.5 (0-4) 10/02/20 01:01 Troponin T 0.036 ng/mL (0.00-0.029) H 10/02/20 01:01 C-Reactive Protein 27.00 mg/dL (0.00-1.30) H 10/06/20 02:09 Total Protein 5.2 g/dL (6.3-8.2) L 10/06/20 02:09 Albumin 2.3 g/dL (3.9-5) L 10/06/20 02:09 Albumin/Globulin Ratio 0.8 % 10/06/20 02:09 Triglycerides 392 mg/dL (2-149) H 10/06/20 02:09 Cholesterol 165 mg/dL (50-199) 10/02/20 01:01 LDL Cholesterol Direct TNR 10/02/20 01:01 HDL Cholesterol 31 mg/dL (40-59) L 10/02/20 01:01 Cholesterol/HDL Ratio 5.32 % 10/02/20 01:01 Procalcitonin 18.80 ng/mL (<0.15) 10/02/20 11:47 PTH Intact 140.3 pg/mL (15-65) H 10/04/20 04:58 Arterial Blood Glucose 165 mg/dL (65-95) H 10/06/20 02:37 Arterial Blood Ionized Calcium 4.6 mg/dL (4.6-5.3) 10/06/20 02:37 Urine Color Alison (Yellow) 10/02/20 02:59 Urine Turbidity Cloudy (Clear) 10/02/20 02:59 Urine pH 5.0 (5.0-7.0) 10/02/20 02:59 Ur Specific [place] 1.025 (1.003-1.030) 10/02/20 02:59 Urine Protein >500 mg/dL (Negative) 10/02/20 02:59 Urine Glucose (UA) 50 mg/dL (Negative) 10/02/20 02:59 Urine Ketones Neg mg/dL (Negative) 10/02/20 02:59 Urine Blood Lg (Negative) 10/02/20 02:59 Urine Nitrite Neg (Negative) 10/02/20 02:59 Urine Bilirubin Neg (Negative) 10/02/20 02:59 Urine Urobilinogen < 2.0 mg/dL (<2.0) 10/02/20 02:59 Ur Leukocyte Esterase Neg (Negative) 10/02/20 02:59 Urine WBC (Auto) 8.0 /HPF (0.0-6.0) H 10/02/20 02:59 Urine RBC (Auto) 3.0 /HPF (0.0-6.0) 10/02/20 02:59 U Epithel Cells (Auto) 2.0 /HPF (0-13.0) 10/02/20 02:59 Amorphous Crystals Few 10/02/20 02:59 Urine Mucus Few /HPF 10/02/20 02:59 Urine Creatinine 156.1 mg/dL (0.1-20.0) H 10/03/20 06:30 Urine Sodium 22 mmol/L 10/03/20 06:30 Urine Opiates Screen Negative 10/02/20 02:59 Urine Methadone Screen Negative 10/02/20 02:59 Ur Barbiturates Screen Negative 10/02/20 02:59 Ur Phencyclidine Scrn Negative 10/02/20 02:59 Ur Amphetamines Screen Negative 10/02/20 02:59 U Benzodiazepines Scrn Negative 10/02/20 02:59 Urine Cocaine Screen Negative 10/02/20 02:59 U Marijuana (THC) Screen Negative 10/02/20 02:59 Drugs of Abuse Note Disclamer 10/02/20 02:59 Plasma/Serum Alcohol < 0.01 % (0-0.07) 10/02/20 01:01 Coronavirus (PCR) Positive (Negative) A 10/02/20 Unknown Hepatitis A IgM Ab Non-reactive (NonReactive) 10/02/20 01:01 Hep Bs Antigen Non-reactive (Negative) 10/02/20 01:01 Hep B Core IgM Ab Non-reactive (NonReactive) 10/02/20 01:01 Hepatitis C Antibody Non-reactive (NonReactive) 10/02/20 01:01 Microbiology: Microbiology 10/02/20 01:18 Peripheral/Venous Blood Culture - Preliminary NO GROWTH AFTER 4 DAYS 10/02/20 01:13 Peripheral/Venous Blood Culture - Preliminary NO GROWTH AFTER 4 DAYS [place]/IV: Voiding Method Indwelling Catheter Active Medications - Current Medications Current Medications: Generic Name Dose Route Start Last Admin Trade Name Freq PRN Reason Stop Dose Admin Acetaminophen 650 mg 10/02/20 05:23 10/04/20 10:58 Acetaminophen 325 Mg Tab PO 650 mg Q6H PRN Administration Pain MILD(1-3)/Fever >100.5/CLIFTON Lipase/Protease/Amylase 1 each 10/04/20 12:06 Lipase 10,500/Protease 25,000/Amylase 43,750 (Units) Dr Deion FEEDTUBE PRN PRN For Clogged Feeding Tube Bisacodyl 10 mg 10/02/20 05:23 Bisacodyl 10 Mg Rect Supp NE QDAY PRN Constipation Dexamethasone 6 mg 10/03/20 04:00 10/06/20 03:47 Dexamethasone 4 Mg/Ml Vial IV 10/12/20 04:01 6 mg Q24H MUSTAPHA Administration Dextrose 50 ml 10/02/20 06:44 Dextrose 50% In Water (25gm) 50 Ml Syringe IV Q30MIN PRN Hypoglycemia Protocol Famotidine 20 mg 10/02/20 10:00 10/06/20 12:31 Famotidine 20 Mg/2 Ml Inj IV 20 mg DAILY MUSTAPHA Administration Fentanyl 50 mcg 10/02/20 00:53 Fentanyl 100 Mcg/2 Ml Inj IV Q10MIN PRN ANALGESIA Glycopyrrolate 1 mg 10/06/20 14:00 Glycopyrrolate 1 Mg Tab PO TID MUSTAPHA Heparin Sodium (Porcine) 2,000 unit 10/04/20 12:18 Heparin 10,000 Units/10 Ml Vial IV RADHA PRN hemodialysis Heparin Sodium (Porcine) 3,400 unit 10/04/20 12:51 Heparin 10,000 Units/10 Ml Vial 40 unit/kg (3400 unit) IV Q6H PRN Anti-Xa Assay < 0.1 units/ml Hydrophilic Ointment 1 applic 10/02/20 00:53 Lip Therapy Vaseline TP Q2HR PRN Dry Lips Fentanyl Citrate 2,000 mcg in 100 mls @ 4.2 mls/hr 10/02/20 01:00 10/06/20 11:47 Fentanyl Drip Premix IV 4 mcg/kg/hr TITR MUSTAPHA 16.8 mls/hr Administration Protocol 1 MCG/KG/HR Propofol 1,000 mg in 100 mls @ 2.52 mls/hr 10/02/20 03:00 10/06/20 12:30 Diprivan 10 Mg/Ml IV 50 mcg/kg/min TITR MUSTAPHA 25.2 mls/hr Administration Protocol 5 MCG/KG/MIN Ceftriaxone Sodium 2 gm in 100 mls @ 200 mls/hr 10/03/20 03:30 10/06/20 03:46 Rocephin/Ns 2 Gm/100 Ml IV 10/07/20 03:59 200 mls/hr Q24H MUSTAPHA Administration Protocol Azithromycin 500 mg in 250 mls @ 250 mls/hr 10/03/20 04:00 10/06/20 03:47 Zithromax/Ns IV 10/07/20 04:59 250 mls/hr Q24H MUSTAPHA Administration Protocol TOCILIZUMAB 600 mg/ Sodium 130 mls @ 120 mls/hr 10/03/20 10:33 Chloride IV 10/03/20 11:37 ONCE ONE Sodium Chloride 100 mls @ 999 mls/hr 10/04/20 12:18 Nacl 0.9% IV RADHA PRN Hypotension Heparin Sodium/Sodium Chloride 25,000 unit in 500 mls @ 20 mls/hr 10/04/20 14:00 10/06/20 12:31 Heparin/ 0.45% Nacl-25,000 Unit/500 Ml IV 900 units/hr TITRATE MUSTAPHA 18 mls/hr Administration Protocol 1,000 UNITS/HR Insulin Glargine 20 units 10/03/20 22:00 10/05/20 22:10 Insulin Glargine 100 Units/Ml SUB-Q 20 units QHS MUSTAPHA Administration Insulin Human Lispro 0 unit 10/02/20 12:00 10/06/20 11:46 Insulin Lispro 100 Unit/Ml SUB-Q 3 unit Q6HR MUSTAPHA Administration Protocol Magnesium Hydroxide 30 ml 10/02/20 05:23 Magnesium Hydroxide (Mom) Oral Liqd Udc PO Q4H PRN Constipation Metoclopramide HCl 5 mg 10/02/20 05:53 Metoclopramide 10 Mg Tab PO Q6H PRN Nausea And Vomiting Midazolam HCl 2 mg 10/02/20 09:48 Midazolam 2 Mg/2 Ml Inj IV Q10MIN PRN Sedation Multi-Ingred Cream/Lotion/Oil/Oint 1 applic 10/02/20 00:53 Mineral Oil/Petrolatum, White Ophth Oint 3.5 Gm OU Q4HR PRN Dry Eye(s) Ondansetron HCl 4 mg 10/02/20 05:23 Ondansetron 4 Mg/2 Ml Inj IV Q8H PRN Nausea And Vomiting Promethazine HCl 25 mg 10/02/20 05:23 Promethazine 25 Mg Rect Supp NE Q6H PRN Nausea And Vomiting Scopolamine 1 each 10/06/20 13:00 Scopolamine Transdermal Patch 72 Hr TD Q3D MUSTAPHA Senna/Docusate Sodium 1 tab 10/02/20 22:00 10/06/20 11:35 Sennosides/Docusate Sodium 8.6/50 Mg Tab FEEDTUBE 1 tab BID MUSTAPHA Administration Simple Syrup 15 ml 10/04/20 12:06 Simple Syrup 15 Ml FEEDTUBE PRN PRN Hypoglycemia Simple Syrup 30 ml 10/04/20 12:06 Simple Syrup 15 Ml FEEDTUBE PRN PRN Hypoglycemia Sodium Bicarbonate 325 mg 10/04/20 12:06 Sodium Bicarbonate 325 Mg Tab FEEDTUBE PRN PRN For Clogged Feeding Tube Sodium Chloride 10 ml 10/02/20 10:00 10/06/20 12:31 Sodium Chloride 0.9% 10 Ml Flush Syringe IV 10 ml BID MUSTAPHA Administration Sodium Chloride 10 ml 10/02/20 05:23 10/06/20 03:48 Sodium Chloride 0.9% 10 Ml Flush Syringe IV 10 ml PRN PRN Administration LINE FLUSH Nutrition/Malnutrition Assess - Dietary Evaluation Nutrition/Malnutrition Findings: Nutrition Notes Start: 10/02/20 07:33 Freq: Status: Active Protocol: Document 10/06/20 12:45 MK (Rec: 10/06/20 12:55 MK [id number]) Nutrition Notes Initial or Follow up Reassessment Current Diagnosis Acute Kidney Injury,Diabetes, Hypertension,Respiratory Failure Other Pertinent Diagnosis pneu, COVID Current Diet Nepro 1.8 at 40ml/hr Labs/Tests Reviewed Pertinent Medications Propofol at 25.2 ml/hr (665 kcal) Height 5 ft 10.8 in Weight 84 kg [place] Body Weight (kg) 77.63 BMI 25.9 Weight Status Overweight Subjective/Other Information Per RN, pt being proned for 12h. Will adjust TF. TF at 10 ml/hr Percent of energy/protein needs met: negigible Burn Absent Trauma Absent Current % PO Negligible Minimum of two criteria No physical signs of malnutrition #1 Nutrition Diagnosis Inadequate oral intake Diagnosis Progress(for reassessment Continues documentation) Is patient on ventilator? Yes Is Patient Ambulatory and/or Out of Bed No REE-([facility]-confined to bed) Calculation Used for Recommendations [facility] Additional Notes Protein: (1.2-2g/kg) 101-168g Fluid: 1 ml/kcal or per MD Nutrition Intervention Change Diet Order: continue Nutrition Support: For 12 Prone: 12 h prone: Nepro 1.8 at 10 ml /hr. Flush 50 ml q4h 12 h supine: Nepro 1.8 at 70 ml/hr. Flush 250 ml q4h or per MD. Kcal 1,728 Protein (gm) 78 Fluid (mL) 698 Goal #1 Meet at least 75% of EER via TF Anticipated Discharge Needs: unable to determine at this time Follow-Up By: 10/09/20 Additional Comments F/u: TF at goal and tolerance
--- NOTE | 2020-10-06 15:44 | Progress Note ---
Assessment and Plan Cultures: Blood culture no growth so far Covid PCR: Positive A/P: 50-year-old man past medical history of hypertension, diabetes admitted as COVID #COVID pneumonia: with bilateral pneumonia. Pending PCR. Was also found to be covered in vomitus, as such concern for aspiration pneumonia. #Acute hypoxic respiratory failure: Currently vent. Secondary to pneumonia #Diabetes: tight glycemic control for best outcomes. #OLIVIA: Renally dose antibiotics. on HD,. Recs: -Continue steroids per pulmonary to complete 10 days. -Procalcitonin likely be falsely elevated in setting of renal failure; complete 5 days of ceftriaxone and azithromycin. -Not a candidate for remdesivir due to renal failure. Thank you for the consult, we will continue to follow. Malgorzata Milligan MD [facility] O: [phone] F: [phone] Subjective Date of service: 10/06/20 Principal diagnosis: Ac hypoxemic resp; COVID-19; Pneumonia; OLIVIA; Ac encephalopathy; NSTEMI Interval history: Remains febrile to 101.1 with a white count 16.3. Cultures no growth so far. Imaging personally reviewed: Chest x-ray: Unchanged mild patchy multifocal pneumonia Objective - Exam Narrative Exam: Physical exam deferred to reduce risk of transmission of COVID-19. Please refer to primary team's note. - Constitutional Vitals: Vital Signs Temp Pulse Resp BP Pulse Ox 98.8 F 51 L 18 106/79 94 10/06/20 13:30 10/06/20 15:30 10/06/20 15:00 10/06/20 15:30 10/06/20 15:00 Temperature -Last 24 Hours Temperature 98.8 F Temperature 100.0 F Temperature 101.1 F Temperature 100.6 F Temperature 99.1 F Temperature 98.8 F Temperature 98.0 F - Labs CBC & Chem 7: 10/06/20 02:09 10/06/20 02:09 Labs: Abnormal lab results 10/05/20 10/05/20 10/06/20 Range/Units 18:04 21:10 02:09 WBC (4.5-11.0) K/mm3 Hgb (11.8-15.2) gm/dl Hct (35.5-45.6) % MCV (84-94) fl MCH (28-32) pg D-Dimer (0-234) ng/mlDDU POC ABG pO2 (83-108) mmHg ABG Oxyhemoglobin (94-98) ABG Glucose (65-95) mg/dL Carboxyhemoglobin (0.5-1.5) BUN (9-20) mg/dL Creatinine (0.8-1.3) mg/dL Glucose (75-100) mg/dL POC Glucose 185 H 162 H (70-105) mg/dL Ferritin (30.0-300.0) ng/mL AST (5-40) units/L Lactate Dehydrogenase 802 H (91-180) units/L C-Reactive Protein 27.00 H (0.00-1.30) mg/dL Total Protein (6.3-8.2) g/dL Albumin (3.9-5) g/dL Triglycerides (2-149) mg/dL Arterial Blood Glucose (65-95) mg/dL 10/06/20 10/06/20 10/06/20 Range/Units 02:09 02:09 02:09 WBC 16.3 H (4.5-11.0) K/mm3 Hgb 11.3 L (11.8-15.2) gm/dl Hct 34.7 L (35.5-45.6) % MCV 83 L (84-94) fl MCH 27 L (28-32) pg D-Dimer (0-234) ng/mlDDU POC ABG pO2 (83-108) mmHg ABG Oxyhemoglobin (94-98) ABG Glucose (65-95) mg/dL Carboxyhemoglobin (0.5-1.5) BUN 107 H (9-20) mg/dL Creatinine 6.6 H (0.8-1.3) mg/dL Glucose 175 H (75-100) mg/dL POC Glucose (70-105) mg/dL Ferritin (30.0-300.0) ng/mL AST 52 H (5-40) units/L Lactate Dehydrogenase (91-180) units/L C-Reactive Protein (0.00-1.30) mg/dL Total Protein 5.2 L (6.3-8.2) g/dL Albumin 2.3 L (3.9-5) g/dL Triglycerides 392 H (2-149) mg/dL Arterial Blood Glucose (65-95) mg/dL 10/06/20 10/06/20 10/06/20 Range/Units 02:37 05:12 06:53 WBC (4.5-11.0) K/mm3 Hgb (11.8-15.2) gm/dl Hct (35.5-45.6) % MCV (84-94) fl MCH (28-32) pg D-Dimer 2754.80 H (0-234) ng/mlDDU POC ABG pO2 75.5 L (83-108) mmHg ABG Oxyhemoglobin 93.3 L (94-98) ABG Glucose 165 H (65-95) mg/dL Carboxyhemoglobin 0.1 L (0.5-1.5) BUN (9-20) mg/dL Creatinine (0.8-1.3) mg/dL Glucose (75-100) mg/dL POC Glucose 142 H (70-105) mg/dL Ferritin (30.0-300.0) ng/mL AST (5-40) units/L Lactate Dehydrogenase (91-180) units/L C-Reactive Protein (0.00-1.30) mg/dL Total Protein (6.3-8.2) g/dL Albumin (3.9-5) g/dL Triglycerides (2-149) mg/dL Arterial Blood Glucose 165 H (65-95) mg/dL 10/06/20 10/06/20 Range/Units 10:38 11:22 WBC (4.5-11.0) K/mm3 Hgb (11.8-15.2) gm/dl Hct (35.5-45.6) % MCV (84-94) fl MCH (28-32) pg D-Dimer (0-234) ng/mlDDU POC ABG pO2 (83-108) mmHg ABG Oxyhemoglobin (94-98) ABG Glucose (65-95) mg/dL Carboxyhemoglobin (0.5-1.5) BUN (9-20) mg/dL Creatinine (0.8-1.3) mg/dL Glucose (75-100) mg/dL POC Glucose 166 H (70-105) mg/dL Ferritin > 2000.0 H (30.0-300.0) ng/mL AST (5-40) units/L Lactate Dehydrogenase (91-180) units/L C-Reactive Protein (0.00-1.30) mg/dL Total Protein (6.3-8.2) g/dL Albumin (3.9-5) g/dL Triglycerides (2-149) mg/dL Arterial Blood Glucose (65-95) mg/dL
[2020-10-06] MEDS: SCOPOLAMINE TRANSDERMAL PATCH 72 HR TD SCH (16:18)
[2020-10-06] MEDS: GLYCOPYRROLATE 1 MG TAB PO SCH ×2 (16:18→19:45)
[2020-10-06] MEDS: ASCORBIC ACID 500 MG TAB PO SCH (21:06)
[2020-10-06] MEDS: ZINC SULFATE 220 MG CAP PO SCH (21:07)
[2020-10-06] MEDS: INSULIN GLARGINE 100 UNITS/ML SUB-Q SCH (21:08)
[2020-10-06] MEDS: ACETAMINOPHEN 325 MG TAB PO PRN (22:49)
[2020-10-07] MEDS: INSULIN LISPRO 100 UNIT/ML SUB-Q SCH ×4 (00:13→18:10)
[2020-10-07] MEDS: cefTRIAXone/NS 2 GM/100 ML 2 GM/100 ML BAG IV SCH (03:44)
[2020-10-07] MEDS: dexAMETHasone 4 MG/ML VIAL IV SCH (03:45)
[2020-10-07] MEDS: AZITHROMYCIN/NS 500 MG/250 ML 500 MG/250 ML BAG IV SCH (03:45)
[2020-10-07] MEDS: fentaNYL DRIP Premix 2,000 MCG/100 ML BAG IV SCH ×4 (04:57→19:51)
[2020-10-07 06:21] LABS: Hematocrit 34.7 % (35.5-45.6); Mean Corpuscular HGB Conc 32 % (32-34); Mean Corpuscular Volume 82 fl (84-94); Platelet Count 297 K/mm3 (140-440); Red Blood Count 4.22 M/mm3 (3.65-5.03); Red Cell Distribution Width 14.4 % (13.2-15.2)
[2020-10-07] MEDS: GLYCOPYRROLATE 1 MG TAB PO SCH ×3 (09:35→20:46)
[2020-10-07] MEDS: ASCORBIC ACID 500 MG TAB PO SCH ×2 (09:35→21:48)
[2020-10-07] MEDS: FAMOTIDINE 20 MG TAB PO SCH (09:35)
[2020-10-07] MEDS: ZINC SULFATE 220 MG CAP PO SCH ×2 (09:35→21:43)
[2020-10-07] MEDS: SENNOSIDES/DOCUSATE SODIUM 8.6/50 MG TAB FEEDTUBE SCH ×2 (09:36→21:43)
[2020-10-07] MEDS ORDERED: CHOLECALCIFEROL (VIT D3) 400 UNIT TAB PO SCH (10:00)
--- NOTE | 2020-10-07 13:11 | Progress Note ---
Assessment and Plan Acute hypoxemic respiratory failure on MVS COVID-19 infection Bilateral pneumonia Acute kidney injury Acute toxic metabolic encephalopathy Rhabdomyolysis Elevated serum inflammatory markers to include the D-dimers as well as ferritin level Non-ST elevation myocardial infarction Oropharyngeal dysphagia - get ABG after unproning - begin Versed drip and wean off Propofol re: bradycardia and hypotension - discontinue harvey catheter if ok with nephroplogy - follow 2D ECHO - continue care as below otherwise; - continue scopolamine and robinul for copious non-bloody secretions - continue Daily SAT and SBT assessment as tolerated - continue to wean supplemental oxygen for target O2 sat's > 90% acutely - VAP bundle addressed - continue lung protective strategies - continue bronchodilators with pulmonary hygiene per RT - wean per pulmonary driven protocols otherwise - continue accuchecks with glycemic control per SSI (While critically ill target blood glucose of 140-180 mg/dL; avoid hypoglycemia) - sedation prn for target RASS 0 to -1 - avoid nephrotoxins, renally dose all medications - continue to avoid benzodiazepine's, reduce the possibility of delirium - complete AB's per ID rec's - prn analgesia per CPOT score - Maintenance of sleep-wake cycle, avoid delirium - continue enteral nutritional support at goal rate as tolerated - G.I. & VTE prophylaxis - PT/OT/ROM exercises - continue mobility protocols for pressure ulcer prophylaxis - Monitor hemodynamics closely - continue other care per attending / other consultants - discharge planning ongoing concurrently COVID SPECIFIC INTERVENTIONS - To receive Actemra - Remdesivir as per ID/Pulmonary developed protocols (not a candidate) - continue systemic steroids for severe COVID-19 infection empirically - follow repeat COVID tests results - zinc and vitamin C supplementation - Monitor inflammatory markers per facility protocol - ferritin, Ddimer, CRP - therapeutic anticoagulation per system Protocol based on d-dimer and clinical considerations - Continue contact and airborne isolation .... Re-evaluate in am & prn CONDITION: CRITICAL PROGNOSIS: GUARDED CODE STATUS: FULL CODE The high probability of a clinically significant, sudden or life-threatening deterioration of the [respiratory, cardiovascular, renal & neurologic] system(s) required my full and direct attention, intervention and personal management. The aggregate critical care time was [35] minutes without overlap. Time includes s pent on; [x] Data Review and interpretation [x] Patient assessment and monitoring of vital signs [x] Documentation [x] Medication orders and management Subjective Date of service: 10/07/20 Principal diagnosis: Ac hypoxemic resp; COVID-19; Pneumonia; OLIVIA; Ac encephalopathy; NSTEMI Interval history: Patient is seen today for: Acute hypoxemic respiratory; COVID-19 infection; Pneumonia; OLIVIA; Acute toxic metabolic encephalopathy; NSTEMI Seen and examined at bedside; 24hour events reviewed; nursing and respiratory care staff consulted; no adverse overnight events reported to me; resting in bed; remains with ARDS; proned now; no emesis or overt aspiration; sedated; no gross bleeding; no high grade fevers; now with anton episodes into the 40's and BP's soft Objective Vital Signs - 12hr 10/07/20 10/07/20 10/07/20 01:13 01:21 01:30 Temperature Pulse Rate 77 95 H 74 Pulse Rate [ From Monitor] Respiratory 12 18 29 H Rate Blood Pressure 100/56 150/88 143/80 O2 Sat by Pulse 84 89 Oximetry 10/07/20 10/07/20 10/07/20 01:41 01:51 02:00 Temperature Pulse Rate 72 71 68 Pulse Rate [ From Monitor] Respiratory 25 H 25 H 25 H Rate Blood Pressure 106/60 126/74 117/70 O2 Sat by Pulse 90 88 85 Oximetry 10/07/20 10/07/20 10/07/20 02:11 02:21 02:30 Temperature Pulse Rate 68 67 66 Pulse Rate [ From Monitor] Respiratory 25 H 25 H 22 Rate Blood Pressure 117/70 124/71 117/68 O2 Sat by Pulse 87 85 86 Oximetry 10/07/20 10/07/20 10/07/20 02:40 02:51 03:00 Temperature Pulse Rate 66 66 64 Pulse Rate [ From Monitor] Respiratory 25 H 25 H 23 Rate Blood Pressure 117/68 116/67 115/70 O2 Sat by Pulse 87 89 88 Oximetry 10/07/20 10/07/20 10/07/20 03:11 03:21 03:30 Temperature Pulse Rate 64 64 63 Pulse Rate [ From Monitor] Respiratory 23 26 H 24 Rate Blood Pressure 117/68 121/70 117/69 O2 Sat by Pulse 88 88 88 Oximetry 10/07/20 10/07/20 10/07/20 03:41 03:45 03:51 Temperature 101.2 F H Pulse Rate 61 63 Pulse Rate [ From Monitor] Respiratory 24 26 H Rate Blood Pressure 121/70 126/72 O2 Sat by Pulse 88 87 Oximetry 10/07/20 10/07/20 10/07/20 04:01 04:08 04:11 Temperature Pulse Rate 96 H 70 69 Pulse Rate [ From Monitor] Respiratory 29 H 26 H Rate Blood Pressure 142/90 142/90 142/90 O2 Sat by Pulse 81 L 89 88 Oximetry 10/07/20 10/07/20 10/07/20 04:21 04:30 04:41 Temperature Pulse Rate 68 65 62 Pulse Rate [ From Monitor] Respiratory 26 H 26 H 25 H Rate Blood Pressure 122/73 118/71 118/71 O2 Sat by Pulse 88 88 86 Oximetry 10/07/20 10/07/20 10/07/20 04:51 05:00 05:11 Temperature Pulse Rate 63 61 63 Pulse Rate [ 65 From Monitor] Respiratory 25 H 24 27 H Rate Blood Pressure 117/67 120/69 120/69 O2 Sat by Pulse 86 86 85 Oximetry 10/07/20 10/07/20 10/07/20 05:21 05:30 05:41 Temperature Pulse Rate 68 63 63 Pulse Rate [ From Monitor] Respiratory 21 24 22 Rate Blood Pressure 116/67 117/69 117/69 O2 Sat by Pulse 93 87 86 Oximetry 10/07/20 10/07/20 10/07/20 05:51 06:00 06:11 Temperature Pulse Rate 63 60 63 Pulse Rate [ From Monitor] Respiratory 24 25 H 23 Rate Blood Pressure 114/70 115/73 115/73 O2 Sat by Pulse 86 85 85 Oximetry 10/07/20 10/07/20 10/07/20 06:21 06:30 06:41 Temperature Pulse Rate 59 L 61 60 Pulse Rate [ From Monitor] Respiratory 25 H 27 H 25 H Rate Blood Pressure 117/67 124/70 124/70 O2 Sat by Pulse 81 L 81 L 82 L Oximetry 10/07/20 10/07/20 10/07/20 06:51 07:00 07:11 Temperature Pulse Rate 58 L 59 L 58 L Pulse Rate [ From Monitor] Respiratory 24 24 24 Rate Blood Pressure 110/65 109/65 109/65 O2 Sat by Pulse 83 L 84 83 L Oximetry 10/07/20 10/07/20 10/07/20 07:21 07:30 07:41 Temperature Pulse Rate 57 L 56 L 55 L Pulse Rate [ From Monitor] Respiratory 22 22 20 Rate Blood Pressure 108/59 106/62 106/62 O2 Sat by Pulse 84 85 85 Oximetry 10/07/20 10/07/20 10/07/20 07:51 08:00 08:11 Temperature Pulse Rate 57 L 59 L 56 L Pulse Rate [ From Monitor] Respiratory 26 H 22 21 Rate Blood Pressure 115/63 109/59 109/59 O2 Sat by Pulse 84 85 85 Oximetry 10/07/20 10/07/20 10/07/20 08:21 08:31 08:33 Temperature Pulse Rate 56 L 64 63 Pulse Rate [ From Monitor] Respiratory 22 22 Rate Blood Pressure 110/59 134/76 134/76 O2 Sat by Pulse 85 90 90 Oximetry 10/07/20 10/07/20 10/07/20 08:41 08:51 09:00 Temperature Pulse Rate 62 58 L 61 Pulse Rate [ 59 L From Monitor] Respiratory 24 19 21 Rate Blood Pressure 134/76 134/76 112/65 O2 Sat by Pulse 87 86 87 Oximetry 10/07/20 10/07/20 10/07/20 09:11 09:21 09:30 Temperature Pulse Rate 58 L 60 59 L Pulse Rate [ From Monitor] Respiratory 20 21 20 Rate Blood Pressure 112/65 114/67 108/59 O2 Sat by Pulse 88 88 88 Oximetry 10/07/20 10/07/20 10/07/20 09:41 09:51 10:00 Temperature Pulse Rate 60 61 57 L Pulse Rate [ From Monitor] Respiratory 21 20 19 Rate Blood Pressure 108/59 112/64 105/61 O2 Sat by Pulse 87 87 87 Oximetry 10/07/20 10/07/20 10/07/20 10:11 10:21 10:30 Temperature Pulse Rate 59 L 58 L 53 L Pulse Rate [ From Monitor] Respiratory 19 20 19 Rate Blood Pressure 105/61 111/63 107/58 O2 Sat by Pulse 87 86 87 Oximetry 10/07/20 10/07/20 10/07/20 10:41 10:51 11:00 Temperature Pulse Rate 58 L 57 L 56 L Pulse Rate [ From Monitor] Respiratory 21 18 17 Rate Blood Pressure 107/58 111/63 99/59 O2 Sat by Pulse 87 87 88 Oximetry 10/07/20 10/07/20 10/07/20 11:11 11:21 11:30 Temperature Pulse Rate 57 L 55 L 53 L Pulse Rate [ From Monitor] Respiratory 16 17 17 Rate Blood Pressure 99/59 99/58 107/58 O2 Sat by Pulse 89 88 88 Oximetry 10/07/20 10/07/20 10/07/20 11:41 11:51 12:00 Temperature Pulse Rate 56 L 53 L 54 L Pulse Rate [ From Monitor] Respiratory 17 14 16 Rate Blood Pressure 107/58 103/56 104/56 O2 Sat by Pulse 88 87 88 Oximetry 10/07/20 12:11 Temperature Pulse Rate 54 L Pulse Rate [ From Monitor] Respiratory 16 Rate Blood Pressure 104/56 O2 Sat by Pulse 87 Oximetry Constitutional: no acute distress, other (middle aged male with mildly increased respiratory effort at rest on MVS) Eyes: non-icteric ENT: oropharynx moist, other (ETT 24 cm CARY) Neck: supple, no lymphadenopathy, no JVD, other (large circumference) Effort: mildly labored Ascultation: Bilateral: clear, diminished breath sounds Percussion: Bilateral: not dull Cardiovascular: regular rate and rhythm Gastrointestinal: normoactive bowel sounds, soft, non-tender, non-distended (protuberant) Integumentary: normal Extremities: no cyanosis, no edema, pulses normal, no ischemia or petechiae, edema (peripheral) Neurologic: non-focal exam (grossly), pupils equal and round, unable to assess, other (sedated) Psychiatric: other (unable to assess re: AMS) CBC and BMP: 10/07/20 06:00 10/07/20 06:00 ABG, PT/INR, D-dimer: ABG ABG pH 7.349 (7.320-7.450) 10/06/20 02:37 POC ABG pCO2 37.9 mmHg (32.0-48.0) 10/06/20 02:37 POC ABG pO2 75.5 mmHg (83-108) L 10/06/20 02:37 POC ABG HCO3 20.4 10/06/20 02:37 ABG O2 Saturation 93.7 (0-100) 10/06/20 02:37 PT/INR, D-dimer PT 14.9 Sec. (12.2-14.9) 10/04/20 14:16 INR 1.12 (0.87-1.13) 10/04/20 14:16 D-Dimer 2754.80 ng/mlDDU (0-234) H 10/06/20 06:53 Abnormal lab findings: Abnormal Labs 10/02/20 10/02/20 10/02/20 01:01 01:01 01:01 WBC RBC 5.04 H Hgb Hct MCV 81 L MCH 27 L Seg Neuts % (Manual) 85.0 H Lymphocytes % (Manual) 1.0 L Monocytes % (Manual) 11.0 H Nucleated RBC % 1.0 H Seg Neutrophils # Man 9.4 H Lymphocytes # (Manual) 0.1 L Monocytes # (Manual) 1.2 H PT 15.3 H INR 1.16 H Thrombin Time 23.2 H D-Dimer Heparin Anti-Xa Level POC ABG pO2 ABG Oxyhemoglobin ABG Sodium ABG Chloride ABG Glucose Carboxyhemoglobin Sodium 133 L Chloride 85.1 L BUN 66 H Creatinine 5.6 H Glucose 292 H POC Glucose Phosphorus Ferritin AST 173 H ALT 139 H Lactate Dehydrogenase Total Creatine Kinase 2544 H CK-MB (CK-2) 14.8 H Troponin T 0.036 H C-Reactive Protein Total Protein Albumin 3.3 L Triglycerides 427 H HDL Cholesterol 31 L PTH Intact Arterial Blood Glucose Arterial Blood Ionized Calcium Urine WBC (Auto) Urine Creatinine Coronavirus (PCR) 10/02/20 10/02/20 10/02/20 02:59 03:51 11:47 WBC RBC Hgb Hct MCV MCH Seg Neuts % (Manual) Lymphocytes % (Manual) Monocytes % (Manual) Nucleated RBC % Seg Neutrophils # Man Lymphocytes # (Manual) Monocytes # (Manual) PT INR Thrombin Time D-Dimer Heparin Anti-Xa Level POC ABG pO2 55.2 L ABG Oxyhemoglobin 85.4 L ABG Sodium 132.0 L ABG Chloride 89.0 L ABG Glucose 372 H Carboxyhemoglobin Sodium Chloride BUN Creatinine Glucose POC Glucose Phosphorus Ferritin AST ALT Lactate Dehydrogenase Total Creatine Kinase 2548 H CK-MB (CK-2) Troponin T C-Reactive Protein Total Protein Albumin Triglycerides HDL Cholesterol PTH Intact Arterial Blood Glucose 372 H Arterial Blood Ionized Calcium Urine WBC (Auto) 8.0 H Urine Creatinine Coronavirus (PCR) 10/02/20 10/02/20 10/02/20 11:47 11:47 11:47 WBC RBC Hgb Hct MCV MCH Seg Neuts % (Manual) Lymphocytes % (Manual) Monocytes % (Manual) Nucleated RBC % Seg Neutrophils # Man Lymphocytes # (Manual) Monocytes # (Manual) PT INR Thrombin Time D-Dimer 1023.48 H Heparin Anti-Xa Level POC ABG pO2 ABG Oxyhemoglobin ABG Sodium ABG Chloride ABG Glucose Carboxyhemoglobin Sodium Chloride BUN Creatinine Glucose POC Glucose Phosphorus Ferritin 8643.0 H AST ALT Lactate Dehydrogenase 828 H Total Creatine Kinase CK-MB (CK-2) Troponin T C-Reactive Protein 13.60 H Total Protein Albumin Triglycerides HDL Cholesterol PTH Intact Arterial Blood Glucose Arterial Blood Ionized Calcium Urine WBC (Auto) Urine Creatinine Coronavirus (PCR) 10/02/20 10/02/20 10/02/20 18:48 23:51 Unknown WBC RBC Hgb Hct MCV MCH Seg Neuts % (Manual) Lymphocytes % (Manual) Monocytes % (Manual) Nucleated RBC % Seg Neutrophils # Man Lymphocytes # (Manual) Monocytes # (Manual) PT INR Thrombin Time D-Dimer Heparin Anti-Xa Level POC ABG pO2 ABG Oxyhemoglobin ABG Sodium ABG Chloride ABG Glucose Carboxyhemoglobin Sodium Chloride BUN Creatinine Glucose POC Glucose 441 H 457 H Phosphorus Ferritin AST ALT Lactate Dehydrogenase Total Creatine Kinase CK-MB (CK-2) Troponin T C-Reactive Protein Total Protein Albumin Triglycerides HDL Cholesterol PTH Intact Arterial Blood Glucose Arterial Blood Ionized Calcium Urine WBC (Auto) Urine Creatinine Coronavirus (PCR) Positive A 10/03/20 10/03/20 10/03/20 05:22 05:25 05:25 WBC RBC Hgb Hct MCV MCH Seg Neuts % (Manual) Lymphocytes % (Manual) Monocytes % (Manual) Nucleated RBC % Seg Neutrophils # Man Lymphocytes # (Manual) Monocytes # (Manual) PT INR Thrombin Time D-Dimer Heparin Anti-Xa Level POC ABG pO2 74.3 L ABG Oxyhemoglobin 93.2 L ABG Sodium 133.6 L ABG Chloride 92.0 L ABG Glucose 399 H Carboxyhemoglobin 0.3 L Sodium 135 L Chloride 88.0 L BUN 102 H Creatinine 7.5 H Glucose 383 H POC Glucose Phosphorus Ferritin AST 71 H ALT 88 H Lactate Dehydrogenase Total Creatine Kinase 1597 H CK-MB (CK-2) Troponin T C-Reactive Protein Total Protein Albumin 2.6 L Triglycerides HDL Cholesterol PTH Intact Arterial Blood Glucose 399 H Arterial Blood Ionized Calcium Urine WBC (Auto) Urine Creatinine Coronavirus (PCR) 08/06/21 08/06/21 08/06/21 06:09 06:30 09:06 WBC RBC Hgb Hct MCV MCH Seg Neuts % (Manual) Lymphocytes % (Manual) Monocytes % (Manual) Nucleated RBC % Seg Neutrophils # Man Lymphocytes # (Manual) Monocytes # (Manual) PT INR Thrombin Time D-Dimer Heparin Anti-Xa Level POC ABG pO2 ABG Oxyhemoglobin ABG Sodium ABG Chloride ABG Glucose Carboxyhemoglobin Sodium Chloride BUN Creatinine Glucose POC Glucose 360 H 298 H Phosphorus Ferritin AST ALT Lactate Dehydrogenase Total Creatine Kinase CK-MB (CK-2) Troponin T C-Reactive Protein Total Protein Albumin Triglycerides HDL Cholesterol PTH Intact Arterial Blood Glucose Arterial Blood Ionized Calcium Urine WBC (Auto) Urine Creatinine 156.1 H Coronavirus (PCR) 10/03/20 10/03/20 10/03/20 13:07 16:37 21:32 WBC RBC Hgb Hct MCV MCH Seg Neuts % (Manual) Lymphocytes % (Manual) Monocytes % (Manual) Nucleated RBC % Seg Neutrophils # Man Lymphocytes # (Manual) Monocytes # (Manual) PT INR Thrombin Time D-Dimer Heparin Anti-Xa Level POC ABG pO2 ABG Oxyhemoglobin ABG Sodium ABG Chloride ABG Glucose Carboxyhemoglobin Sodium Chloride BUN Creatinine Glucose POC Glucose 243 H 229 H 169 H Phosphorus Ferritin AST ALT Lactate Dehydrogenase Total Creatine Kinase CK-MB (CK-2) Troponin T C-Reactive Protein Total Protein Albumin Triglycerides HDL Cholesterol PTH Intact Arterial Blood Glucose Arterial Blood Ionized Calcium Urine WBC (Auto) Urine Creatinine Coronavirus (PCR) 10/03/20 10/04/20 10/04/20 23:09 03:26 04:58 WBC RBC Hgb Hct MCV MCH Seg Neuts % (Manual) Lymphocytes % (Manual) Monocytes % (Manual) Nucleated RBC % Seg Neutrophils # Man Lymphocytes # (Manual) Monocytes # (Manual) PT INR Thrombin Time D-Dimer Heparin Anti-Xa Level POC ABG pO2 77.8 L ABG Oxyhemoglobin ABG Sodium ABG Chloride ABG Glucose Carboxyhemoglobin 0.1 L Sodium Chloride 97.1 L BUN 112 H Creatinine 8.2 H Glucose 70 L POC Glucose 150 H Phosphorus 8.10 H Ferritin AST 50 H ALT 66 H Lactate Dehydrogenase Total Creatine Kinase 983 H CK-MB (CK-2) Troponin T C-Reactive Protein Total Protein Albumin 2.6 L Triglycerides HDL Cholesterol PTH Intact Arterial Blood Glucose Arterial Blood Ionized Calcium 4.5 L Urine WBC (Auto) Urine Creatinine Coronavirus (PCR) 10/04/20 10/04/20 10/04/20 04:58 04:58 09:59 WBC 15.7 H RBC Hgb Hct MCV 82 L MCH Seg Neuts % (Manual) Lymphocytes % (Manual) Monocytes % (Manual) Nucleated RBC % Seg Neutrophils # Man Lymphocytes # (Manual) Monocytes # (Manual) PT INR Thrombin Time D-Dimer 2287.60 H Heparin Anti-Xa Level POC ABG pO2 ABG Oxyhemoglobin ABG Sodium ABG Chloride ABG Glucose Carboxyhemoglobin Sodium Chloride BUN Creatinine Glucose POC Glucose Phosphorus Ferritin AST ALT Lactate Dehydrogenase Total Creatine Kinase CK-MB (CK-2) Troponin T C-Reactive Protein Total Protein Albumin Triglycerides HDL Cholesterol PTH Intact 140.3 H Arterial Blood Glucose Arterial Blood Ionized Calcium Urine WBC (Auto) Urine Creatinine Coronavirus (PCR) 10/04/20 10/04/20 10/04/20 09:59 09:59 11:35 WBC RBC Hgb Hct MCV MCH Seg Neuts % (Manual) Lymphocytes % (Manual) Monocytes % (Manual) Nucleated RBC % Seg Neutrophils # Man Lymphocytes # (Manual) Monocytes # (Manual) PT INR Thrombin Time D-Dimer Heparin Anti-Xa Level POC ABG pO2 ABG Oxyhemoglobin ABG Sodium ABG Chloride ABG Glucose Carboxyhemoglobin Sodium Chloride BUN Creatinine Glucose POC Glucose 126 H Phosphorus Ferritin > 2000.0 H AST ALT Lactate Dehydrogenase 735 H Total Creatine Kinase CK-MB (CK-2) Troponin T C-Reactive Protein 16.40 H Total Protein Albumin Triglycerides HDL Cholesterol PTH Intact Arterial Blood Glucose Arterial Blood Ionized Calcium Urine WBC (Auto) Urine Creatinine Coronavirus (PCR) 10/04/20 10/04/20 10/04/20 14:16 17:17 21:39 WBC RBC Hgb 11.6 L Hct 35.2 L MCV MCH Seg Neuts % (Manual) Lymphocytes % (Manual) Monocytes % (Manual) Nucleated RBC % Seg Neutrophils # Man Lymphocytes # (Manual) Monocytes # (Manual) PT INR Thrombin Time D-Dimer Heparin Anti-Xa Level POC ABG pO2 ABG Oxyhemoglobin ABG Sodium ABG Chloride ABG Glucose Carboxyhemoglobin Sodium Chloride BUN Creatinine Glucose POC Glucose 178 H 160 H Phosphorus Ferritin AST ALT Lactate Dehydrogenase Total Creatine Kinase CK-MB (CK-2) Troponin T C-Reactive Protein Total Protein Albumin Triglycerides HDL Cholesterol PTH Intact Arterial Blood Glucose Arterial Blood Ionized Calcium Urine WBC (Auto) Urine Creatinine Coronavirus (PCR) 10/05/20 10/05/20 10/05/20 00:13 03:13 05:04 WBC RBC Hgb Hct MCV MCH Seg Neuts % (Manual) Lymphocytes % (Manual) Monocytes % (Manual) Nucleated RBC % Seg Neutrophils # Man Lymphocytes # (Manual) Monocytes # (Manual) PT INR Thrombin Time D-Dimer Heparin Anti-Xa Level POC ABG pO2 ABG Oxyhemoglobin ABG Sodium ABG Chloride ABG Glucose 119 H Carboxyhemoglobin 0.3 L Sodium Chloride BUN 90 H Creatinine 5.9 H Glucose 107 H POC Glucose 141 H Phosphorus Ferritin AST ALT Lactate Dehydrogenase Total Creatine Kinase 482 H CK-MB (CK-2) Troponin T C-Reactive Protein Total Protein Albumin Triglycerides HDL Cholesterol PTH Intact Arterial Blood Glucose 119 H Arterial Blood Ionized Calcium 4.4 L Urine WBC (Auto) Urine Creatinine Coronavirus (PCR) 10/05/20 10/05/20 10/05/20 11:33 18:04 21:10 WBC RBC Hgb Hct MCV MCH Seg Neuts % (Manual) Lymphocytes % (Manual) Monocytes % (Manual) Nucleated RBC % Seg Neutrophils # Man Lymphocytes # (Manual) Monocytes # (Manual) PT INR Thrombin Time D-Dimer Heparin Anti-Xa Level POC ABG pO2 ABG Oxyhemoglobin ABG Sodium ABG Chloride ABG Glucose Carboxyhemoglobin Sodium Chloride BUN Creatinine Glucose POC Glucose 136 H 185 H 162 H Phosphorus Ferritin AST ALT Lactate Dehydrogenase Total Creatine Kinase CK-MB (CK-2) Troponin T C-Reactive Protein Total Protein Albumin Triglycerides HDL Cholesterol PTH Intact Arterial Blood Glucose Arterial Blood Ionized Calcium Urine WBC (Auto) Urine Creatinine Coronavirus (PCR) 10/06/20 10/06/20 10/06/20 02:09 02:09 02:09 WBC 16.3 H RBC Hgb 11.3 L Hct 34.7 L MCV 83 L MCH 27 L Seg Neuts % (Manual) Lymphocytes % (Manual) Monocytes % (Manual) Nucleated RBC % Seg Neutrophils # Man Lymphocytes # (Manual) Monocytes # (Manual) PT INR Thrombin Time D-Dimer Heparin Anti-Xa Level POC ABG pO2 ABG Oxyhemoglobin ABG Sodium ABG Chloride ABG Glucose Carboxyhemoglobin Sodium Chloride BUN 107 H Creatinine 6.6 H Glucose 175 H POC Glucose Phosphorus Ferritin AST 52 H ALT Lactate Dehydrogenase 802 H Total Creatine Kinase CK-MB (CK-2) Troponin T C-Reactive Protein 27.00 H Total Protein 5.2 L Albumin 2.3 L Triglycerides HDL Cholesterol PTH Intact Arterial Blood Glucose Arterial Blood Ionized Calcium Urine WBC (Auto) Urine Creatinine Coronavirus (PCR) 10/06/20 10/06/20 10/06/20 02:09 02:37 05:12 WBC RBC Hgb Hct MCV MCH Seg Neuts % (Manual) Lymphocytes % (Manual) Monocytes % (Manual) Nucleated RBC % Seg Neutrophils # Man Lymphocytes # (Manual) Monocytes # (Manual) PT INR Thrombin Time D-Dimer Heparin Anti-Xa Level POC ABG pO2 75.5 L ABG Oxyhemoglobin 93.3 L ABG Sodium ABG Chloride ABG Glucose 165 H Carboxyhemoglobin 0.1 L Sodium Chloride BUN Creatinine Glucose POC Glucose 142 H Phosphorus Ferritin AST ALT Lactate Dehydrogenase Total Creatine Kinase CK-MB (CK-2) Troponin T C-Reactive Protein Total Protein Albumin Triglycerides 392 H HDL Cholesterol PTH Intact Arterial Blood Glucose 165 H Arterial Blood Ionized Calcium Urine WBC (Auto) Urine Creatinine Coronavirus (PCR) 10/06/20 10/06/20 10/06/20 06:53 10:38 11:22 WBC RBC Hgb Hct MCV MCH Seg Neuts % (Manual) Lymphocytes % (Manual) Monocytes % (Manual) Nucleated RBC % Seg Neutrophils # Man Lymphocytes # (Manual) Monocytes # (Manual) PT INR Thrombin Time D-Dimer 2754.80 H Heparin Anti-Xa Level POC ABG pO2 ABG Oxyhemoglobin ABG Sodium ABG Chloride ABG Glucose Carboxyhemoglobin Sodium Chloride BUN Creatinine Glucose POC Glucose 166 H Phosphorus Ferritin > 2000.0 H AST ALT Lactate Dehydrogenase Total Creatine Kinase CK-MB (CK-2) Troponin T C-Reactive Protein Total Protein Albumin Triglycerides HDL Cholesterol PTH Intact Arterial Blood Glucose Arterial Blood Ionized Calcium Urine WBC (Auto) Urine Creatinine Coronavirus (PCR) 10/06/20 10/06/20 10/07/20 17:52 23:58 05:29 WBC RBC Hgb Hct MCV MCH Seg Neuts % (Manual) Lymphocytes % (Manual) Monocytes % (Manual) Nucleated RBC % Seg Neutrophils # Man Lymphocytes # (Manual) Monocytes # (Manual) PT INR Thrombin Time D-Dimer Heparin Anti-Xa Level POC ABG pO2 ABG Oxyhemoglobin ABG Sodium ABG Chloride ABG Glucose Carboxyhemoglobin Sodium Chloride BUN Creatinine Glucose POC Glucose 221 H 228 H 147 H Phosphorus Ferritin AST ALT Lactate Dehydrogenase Total Creatine Kinase CK-MB (CK-2) Troponin T C-Reactive Protein Total Protein Albumin Triglycerides HDL Cholesterol PTH Intact Arterial Blood Glucose Arterial Blood Ionized Calcium Urine WBC (Auto) Urine Creatinine Coronavirus (PCR) 10/07/20 10/07/20 10/07/20 06:00 06:00 06:00 WBC 16.2 H RBC Hgb 11.0 L Hct 34.7 L MCV 82 L MCH 26 L Seg Neuts % (Manual) Lymphocytes % (Manual) Monocytes % (Manual) Nucleated RBC % Seg Neutrophils # Man Lymphocytes # (Manual) Monocytes # (Manual) PT INR Thrombin Time D-Dimer Heparin Anti-Xa Level 0.26 L POC ABG pO2 ABG Oxyhemoglobin ABG Sodium ABG Chloride ABG Glucose Carboxyhemoglobin Sodium Chloride 97.3 L BUN 77 H Creatinine 5.7 H Glucose 151 H POC Glucose Phosphorus Ferritin AST ALT Lactate Dehydrogenase Total Creatine Kinase 473 H CK-MB (CK-2) Troponin T C-Reactive Protein Total Protein Albumin Triglycerides HDL Cholesterol PTH Intact Arterial Blood Glucose Arterial Blood Ionized Calcium Urine WBC (Auto) Urine Creatinine Coronavirus (PCR) Chest x-ray: image reviewed (mild interstitial edema) Allied health notes reviewed: nursing
--- NOTE | 2020-10-07 13:37 | Progress Note ---
Assessment and Plan 1. Acute kidney injury: OLIVIA in the setting of severe Covid infection. Received IV contrast 10/02. FeNa low. Renal US negative for hydro. Monitor renal function. BUN and Creatinine level remains high. Avoid nephrotoxic agents. Meds dosage based on GFR. Monitor for [facility] [employer] needs. Patient was started on hemodialysis due to worsening renal function. Hemodialysis: 10/04, 10/06. 2. FEN: Additional UF if needed, d/w Monitor lytes and volume status. 3. Acute respiratory failure with hypoxemia: 2/2 Covid PNA. Currently proned, on vent, wean as tolerated. 4. Covid PNA: Followed by ID. 5. Acute encephalopathy, POA: Multifactorial. R/O Seizure. CT brain remarkable for left frontal hypodensity. EEG suggestive of encephalopathy. R/O CVA. 6. Rhabdomyolysis: Trend CK, improving. 7. Elevated ALT & AST: Trend. 8. DM type 2: Monitor. Subjective: Patient was seen and examined at the bedside. Examination: General appearance: well-developed, appears stated age, intubated on vent, proned HEENT: atraumatic Neck: proned Respiratory: MV sounds Heart: S1S2 Abdomen: proned Integumentary: no obvious rash Neurologic: not responding Ext: no edema : Blanchard catheter Hemodialysis access: R IJ temp catheter Subjective Date of service: 10/07/20 Principal diagnosis: Ac hypoxemic resp; COVID-19; Pneumonia; OLIVIA; Ac encephalopathy; NSTEMI Objective - Vital Signs Vital signs: Vital Signs - 12hr 10/07/20 10/07/20 10/07/20 01:41 01:51 02:00 Temperature Pulse Rate 72 71 68 Pulse Rate [ From Monitor] Respiratory 25 H 25 H 25 H Rate Blood Pressure 106/60 126/74 117/70 O2 Sat by Pulse 90 88 85 Oximetry 10/07/20 10/07/20 10/07/20 02:11 02:21 02:30 Temperature Pulse Rate 68 67 66 Pulse Rate [ From Monitor] Respiratory 25 H 25 H 22 Rate Blood Pressure 117/70 124/71 117/68 O2 Sat by Pulse 87 85 86 Oximetry 10/07/20 10/07/20 10/07/20 02:40 02:51 03:00 Temperature Pulse Rate 66 66 64 Pulse Rate [ From Monitor] Respiratory 25 H 25 H 23 Rate Blood Pressure 117/68 116/67 115/70 O2 Sat by Pulse 87 89 88 Oximetry 10/07/20 10/07/20 10/07/20 03:11 03:21 03:30 Temperature Pulse Rate 64 64 63 Pulse Rate [ From Monitor] Respiratory 23 26 H 24 Rate Blood Pressure 117/68 121/70 117/69 O2 Sat by Pulse 88 88 88 Oximetry 10/07/20 10/07/20 10/07/20 03:41 03:45 03:51 Temperature 101.2 F H Pulse Rate 61 63 Pulse Rate [ From Monitor] Respiratory 24 26 H Rate Blood Pressure 121/70 126/72 O2 Sat by Pulse 88 87 Oximetry 10/07/20 10/07/20 10/07/20 04:01 04:08 04:11 Temperature Pulse Rate 96 H 70 69 Pulse Rate [ From Monitor] Respiratory 29 H 26 H Rate Blood Pressure 142/90 142/90 142/90 O2 Sat by Pulse 81 L 89 88 Oximetry 10/07/20 10/07/20 10/07/20 04:21 04:30 04:41 Temperature Pulse Rate 68 65 62 Pulse Rate [ From Monitor] Respiratory 26 H 26 H 25 H Rate Blood Pressure 122/73 118/71 118/71 O2 Sat by Pulse 88 88 86 Oximetry 10/07/20 10/07/20 10/07/20 04:51 05:00 05:11 Temperature Pulse Rate 63 61 63 Pulse Rate [ 65 From Monitor] Respiratory 25 H 24 27 H Rate Blood Pressure 117/67 120/69 120/69 O2 Sat by Pulse 86 86 85 Oximetry 10/07/20 10/07/20 10/07/20 05:21 05:30 05:41 Temperature Pulse Rate 68 63 63 Pulse Rate [ From Monitor] Respiratory 24 22 Rate Blood Pressure 116/67 117/69 117/69 O2 Sat by Pulse 93 87 86 Oximetry 10/07/20 10/07/20 10/07/20 05:51 06:00 06:11 Temperature Pulse Rate 63 60 63 Pulse Rate [ From Monitor] Respiratory 24 25 H 23 Rate Blood Pressure 114/70 115/73 115/73 O2 Sat by Pulse 86 85 85 Oximetry 10/07/20 10/07/20 10/07/20 06:21 06:30 06:41 Temperature Pulse Rate 59 L 61 60 Pulse Rate [ From Monitor] Respiratory 25 H 27 H 25 H Rate Blood Pressure 117/67 124/70 124/70 O2 Sat by Pulse 81 L 81 L 82 L Oximetry 10/07/20 10/07/20 10/07/20 06:51 07:00 07:11 Temperature Pulse Rate 58 L 59 L 58 L Pulse Rate [ From Monitor] Respiratory 24 24 24 Rate Blood Pressure 110/65 109/65 109/65 O2 Sat by Pulse 83 L 84 83 L Oximetry 10/07/20 10/07/20 10/07/20 07:21 07:30 07:41 Temperature Pulse Rate 57 L 56 L 55 L Pulse Rate [ From Monitor] Respiratory 22 22 20 Rate Blood Pressure 108/59 106/62 106/62 O2 Sat by Pulse 84 85 85 Oximetry 10/07/20 10/07/20 10/07/20 07:51 08:00 08:11 Temperature Pulse Rate 57 L 59 L 56 L Pulse Rate [ From Monitor] Respiratory 26 H 22 21 Rate Blood Pressure 115/63 109/59 109/59 O2 Sat by Pulse 84 85 85 Oximetry 10/07/20 10/07/20 10/07/20 08:21 08:31 08:33 Temperature Pulse Rate 56 L 64 63 Pulse Rate [ From Monitor] Respiratory 22 22 Rate Blood Pressure 110/59 134/76 134/76 O2 Sat by Pulse 85 90 90 Oximetry 10/07/20 10/07/20 10/07/20 08:41 08:51 09:00 Temperature Pulse Rate 62 58 L 61 Pulse Rate [ 59 L From Monitor] Respiratory 24 19 21 Rate Blood Pressure 134/76 134/76 112/65 O2 Sat by Pulse 87 86 87 Oximetry 10/07/20 10/07/20 10/07/20 09:11 09:21 09:30 Temperature Pulse Rate 58 L 60 59 L Pulse Rate [ From Monitor] Respiratory 20 21 20 Rate Blood Pressure 112/65 114/67 108/59 O2 Sat by Pulse 88 88 88 Oximetry 10/07/20 10/07/20 10/07/20 09:41 09:51 10:00 Temperature Pulse Rate 60 61 57 L Pulse Rate [ From Monitor] Respiratory 21 20 19 Rate Blood Pressure 108/59 112/64 105/61 O2 Sat by Pulse 87 87 87 Oximetry 10/07/20 10/07/20 10/07/20 10:11 10:21 10:30 Temperature Pulse Rate 59 L 58 L 53 L Pulse Rate [ From Monitor] Respiratory 19 20 19 Rate Blood Pressure 105/61 111/63 107/58 O2 Sat by Pulse 87 86 87 Oximetry 10/07/20 10/07/20 10/07/20 10:41 10:51 11:00 Temperature Pulse Rate 58 L 57 L 56 L Pulse Rate [ From Monitor] Respiratory 21 18 17 Rate Blood Pressure 107/58 111/63 99/59 O2 Sat by Pulse 87 87 88 Oximetry 10/07/20 10/07/20 10/07/20 11:11 11:21 11:30 Temperature Pulse Rate 57 L 55 L 53 L Pulse Rate [ From Monitor] Respiratory 16 17 17 Rate Blood Pressure 99/59 99/58 107/58 O2 Sat by Pulse 89 88 88 Oximetry 10/07/20 10/07/20 10/07/20 11:41 11:51 12:00 Temperature Pulse Rate 56 L 53 L 54 L Pulse Rate [ From Monitor] Respiratory 17 14 16 Rate Blood Pressure 107/58 103/56 104/56 O2 Sat by Pulse 88 87 88 Oximetry 10/07/20 10/07/20 12:11 13:05 Temperature Pulse Rate 54 L 53 L Pulse Rate [ From Monitor] Respiratory 16 Rate Blood Pressure 104/56 101/62 O2 Sat by Pulse 87 90 Oximetry - Lab 10/07/20 06:00 10/07/20 06:00 Most recent lab results ABG pH 7.349 (7.320-7.450) 10/06/20 02:37 ABG O2 Saturation 93.7 (0-100) 10/06/20 02:37 Calcium 9.0 mg/dL (8.4-10.2) 10/07/20 06:00 Phosphorus 8.10 mg/dL (2.5-4.5) H 10/04/20 04:58 Urine Creatinine 156.1 mg/dL (0.1-20.0) H 10/03/20 06:30 Urine Sodium 22 mmol/L 10/03/20 06:30 Medications & Allergies - Medications Allergies/Adverse Reactions: Allergies No Known Allergies Allergy (Verified 10/02/20 01:44) Active Medications: Generic Name Dose Route Start Last Admin Trade Name Freq PRN Reason Stop Dose Admin Acetaminophen 650 mg 10/02/20 05:23 10/06/20 22:49 Acetaminophen 325 Mg Tab PO 650 mg Q6H PRN Administration Pain MILD(1-3)/Fever >100.5/[place] Lipase/Protease/Amylase 1 each 10/04/20 12:06 Lipase 10,500/Protease 25,000/Amylase 43,750 (Units) Dr Cap FEEDTUBE PRN PRN For Clogged Feeding Tube Ascorbic Acid 1,000 mg 10/06/20 22:00 10/07/20 09:35 Ascorbic Acid 500 Mg Tab PO 1,000 mg BID MUSTAPHA Administration Bisacodyl 10 mg 10/02/20 05:23 Bisacodyl 10 Mg Rect Supp ND QDAY PRN Constipation Cholecalciferol 1,000 unit 10/08/20 10:00 Cholecalciferol (Vit D3) 1000 Unit (25 Mcg) Tab PO DAILY MUSTAPHA Dexamethasone 6 mg 10/03/20 04:00 10/07/20 03:45 Dexamethasone 4 Mg/Ml Vial IV 10/12/20 04:01 6 mg Q24H MUSTAPHA Administration Dextrose 50 ml 10/02/20 06:44 Dextrose 50% In Water (25gm) 50 Ml Syringe IV Q30MIN PRN Hypoglycemia Protocol Famotidine 20 mg 10/07/20 10:00 10/07/20 09:35 Famotidine 20 Mg Tab PO 20 mg DAILY MUSTAPHA Administration Fentanyl 50 mcg 10/02/20 00:53 Fentanyl 100 Mcg/2 Ml Inj IV Q10MIN PRN ANALGESIA Glycopyrrolate 1 mg 10/06/20 14:00 10/07/20 09:35 Glycopyrrolate 1 Mg Tab PO 1 mg TID MUSTAPHA Administration Heparin Sodium (Porcine) 2,000 unit 10/04/20 12:18 Heparin 10,000 Units/10 Ml Vial IV RADHA PRN hemodialysis Heparin Sodium (Porcine) 3,400 unit 10/04/20 12:51 Heparin 10,000 Units/10 Ml Vial 40 unit/kg (3400 unit) IV Q6H PRN Anti-Xa Assay < 0.1 units/ml Hydrophilic Ointment 1 applic 10/02/20 00:53 Lip Therapy Vaseline TP Q2HR PRN Dry Lips Fentanyl Citrate 2,000 mcg in 100 mls @ 4.2 mls/hr 10/02/20 01:00 10/07/20 10:31 Fentanyl Drip Premix IV 4 mcg/kg/hr TITR MUSTAPHA 16.8 mls/hr Administration Protocol 1 MCG/KG/HR Propofol 1,000 mg in 100 mls @ 2.52 mls/hr 10/02/20 03:00 10/07/20 11:14 Diprivan 10 Mg/Ml IV 50 mcg/kg/min TITR MUSTAPHA 25.2 mls/hr Administration Protocol 5 MCG/KG/MIN TOCILIZUMAB 600 mg/ Sodium 130 mls @ 120 mls/hr 10/03/20 10:33 Chloride IV 10/03/20 11:37 ONCE ONE Sodium Chloride 100 mls @ 999 mls/hr 10/04/20 12:18 Nacl 0.9% IV RADHA PRN Hypotension Heparin Sodium/Sodium Chloride 25,000 unit in 500 mls @ 20 mls/hr 10/04/20 14:00 10/06/20 12:31 Heparin/ 0.45% Nacl-25,000 Unit/500 Ml IV 900 units/hr TITRATE MUSTAPHA 18 mls/hr Administration Protocol 1,000 UNITS/HR Insulin Glargine 20 units 10/03/20 22:00 10/06/20 21:08 Insulin Glargine 100 Units/Ml SUB-Q 20 units QHS [facility] Administration Insulin Human Lispro 0 unit 10/02/20 12:00 10/07/20 07:30 Insulin Lispro 100 Unit/Ml SUB-Q Not Given Q6HR [facility] Protocol Magnesium Hydroxide 30 ml 10/02/20 05:23 Magnesium Hydroxide (Mom) Oral Liqd Udc PO Q4H PRN Constipation Metoclopramide HCl 5 mg 10/02/20 05:53 Metoclopramide 10 Mg Tab PO Q6H PRN Nausea And Vomiting Multi-Ingred Cream/Lotion/Oil/Oint 1 applic 10/02/20 00:53 Mineral Oil/Petrolatum, White Ophth Oint 3.5 Gm OU Q4HR PRN Dry Eye(s) Ondansetron HCl 4 mg 10/02/20 05:23 Ondansetron 4 Mg/2 Ml Inj IV Q8H PRN Nausea And Vomiting Promethazine HCl 25 mg 10/02/20 05:23 Promethazine 25 Mg Rect Supp ND Q6H PRN Nausea And Vomiting Scopolamine 1 each 10/06/20 13:00 10/06/20 16:18 Scopolamine Transdermal Patch 72 Hr TD 1 each Q3D MUSTAPHA Administration Senna/Docusate Sodium 1 tab 10/02/20 22:00 10/07/20 09:36 Sennosides/Docusate Sodium 8.6/50 Mg Tab FEEDTUBE 1 tab BID MUSTAPHA Administration Simple Syrup 15 ml 10/04/20 12:06 Simple Syrup 15 Ml FEEDTUBE PRN PRN Hypoglycemia Simple Syrup 30 ml 10/04/20 12:06 Simple Syrup 15 Ml FEEDTUBE PRN PRN Hypoglycemia Sodium Bicarbonate 325 mg 10/04/20 12:06 Sodium Bicarbonate 325 Mg Tab FEEDTUBE PRN PRN For Clogged Feeding Tube Sodium Chloride 10 ml 10/02/20 10:00 10/07/20 09:36 Sodium Chloride 0.9% 10 Ml Flush Syringe IV 10 ml BID MUSTAPHA Administration Sodium Chloride 10 ml 10/02/20 05:23 10/06/20 03:48 Sodium Chloride 0.9% 10 Ml Flush Syringe IV 10 ml PRN PRN Administration LINE FLUSH Zinc Sulfate 220 mg 10/06/20 22:00 10/07/20 09:35 Zinc Sulfate 220 Mg Cap PO 220 mg BID MUSTAPHA Administration
[2020-10-07] MEDS ORDERED: MIDAZOLAM 2 MG/2 ML INJ IV PRN (14:02)
--- NOTE | 2020-10-07 14:24 | Progress Note ---
Assessment and Plan Cultures: Blood culture no growth so far Covid PCR: Positive A/P: 50-year-old man past medical history of hypertension, diabetes admitted as COVID #COVID pneumonia: with bilateral pneumonia. Pending PCR. Was also found to be covered in vomitus, as such concern for aspiration pneumonia. #Acute hypoxic respiratory failure: Currently vent. Secondary to pneumonia #Diabetes: tight glycemic control for best outcomes. #OLIVIA: Renally dose antibiotics. on HD,. Recs: -Continue steroids per pulmonary to complete 10 days. -Procalcitonin likely be falsely elevated in setting of renal failure; complete 5 days of ceftriaxone and azithromycin. -Not a candidate for remdesivir due to renal failure. Thank you for the consult, we will continue to follow. Malgorzata Milligan MD [facility] O: [phone] F: [phone] Subjective Date of service: 10/07/20 Principal diagnosis: Ac hypoxemic resp; COVID-19; Pneumonia; OLIVIA; Ac encephalopathy; NSTEMI Interval history: Remains persistently febrile with an elevated white count. Objective - Exam Narrative Exam: Physical exam deferred to reduce risk of transmission of COVID-19. Please refer to primary team's note. - Constitutional Vitals: Vital Signs Temp Pulse Resp BP Pulse Ox 101.2 F H 53 L 16 101/62 90 10/07/20 03:45 10/07/20 13:05 10/07/20 12:11 10/07/20 13:05 10/07/20 13:05 Temperature -Last 24 Hours Temperature 101.2 F Temperature 101 F Temperature 100.3 F Temperature 99.2 F Temperature 99.2 F - Labs CBC & Chem 7: 10/07/20 06:00 10/07/20 06:00 Labs: Abnormal lab results 10/06/20 10/06/20 10/07/20 Range/Units 17:52 23:58 05:29 WBC (4.5-11.0) K/mm3 Hgb (11.8-15.2) gm/dl Hct (35.5-45.6) % MCV (84-94) fl MCH (28-32) pg Heparin Anti-Xa Level (0.3-0.7) U.I./ml Chloride (98-107) mmol/L BUN (9-20) mg/dL Creatinine (0.8-1.3) mg/dL Glucose (75-100) mg/dL POC Glucose 221 H 228 H 147 H (70-105) mg/dL Total Creatine Kinase (55-170) units/L 10/07/20 10/07/20 10/07/20 Range/Units 06:00 06:00 06:00 WBC 16.2 H (4.5-11.0) K/mm3 Hgb 11.0 L (11.8-15.2) gm/dl Hct 34.7 L (35.5-45.6) % MCV 82 L (84-94) fl MCH 26 L (28-32) pg Heparin Anti-Xa Level 0.26 L (0.3-0.7) U.I./ml Chloride 97.3 L (98-107) mmol/L BUN 77 H (9-20) mg/dL Creatinine 5.7 H (0.8-1.3) mg/dL Glucose 151 H (75-100) mg/dL POC Glucose (70-105) mg/dL Total Creatine Kinase 473 H (55-170) units/L 10/07/20 Range/Units 13:14 WBC (4.5-11.0) K/mm3 Hgb (11.8-15.2) gm/dl Hct (35.5-45.6) % MCV (84-94) fl MCH (28-32) pg Heparin Anti-Xa Level (0.3-0.7) U.I./ml Chloride (98-107) mmol/L BUN (9-20) mg/dL Creatinine (0.8-1.3) mg/dL Glucose (75-100) mg/dL POC Glucose 132 H (70-105) mg/dL Total Creatine Kinase (55-170) units/L
[2020-10-07] MEDS: MIDAZOLAM 100 MG in SODIUM CHLORIDE 0.9% 80 ML IV SCH (14:33)
--- NOTE | 2020-10-07 17:52 | XRay Report ---
XR chest 1V ap INDICATION / CLINICAL INFORMATION: follow up respiratory failure. COMPARISON: Radiograph from yesterday. FINDINGS: SUPPORT DEVICES: Unchanged. HEART / MEDIASTINUM: Unchanged. LUNGS / PLEURA: Persistent diffuse bilateral airspace disease appears mildly worse. No pneumothorax. ADDITIONAL FINDINGS: No significant additional findings. IMPRESSION: 1. Bilateral airspace disease appears mildly worse. Signer Name: Oren Scott MD Signed: 10/07/2020 5:47 PM Workstation Name: [id number]
--- NOTE | 2020-10-07 18:22 | Progress Note ---
Assessment and Plan Assessment and plan: This is a 50-year-old male with HTN, DM who was diagnosed with COVID-19 approximately 1 week prior to presentation admitted for COVID-19 pneumonia, acute respiratory failure, rule out CVA, acute encephalopathy, sepsis, OLIVIA. Neuro: Acute encephalopathy, rule out CVA -Neurology consulted, appreciate recommendations -Goal RASS -3 to -4 while proned -Sedated with fentanyl and propofol -MRI brain or CT brain pending as patient is too unstable at this time -10/02 CT head with abnormal finding, see reading -10/02 CTA head, see report -10/02 CTA neck, see report -10/02 carotid Doppler ultrasound, see report -EEG pending Cardiology: SRSB, H/O HTN -Blood pressure monitoring per protocol -Patient is now normotensive -Echocardiogram shows LVEF 50 to 55%, saline bubble contrast intravenous injection demonstrates PFO, trace MR, mild AR, trace to mild TR, RVSP is 33 mmHg, mild OR with no pleural effusion Respiratory: Acute hypoxic respiratory failure -CM consulted, patient recommendations -OETT 7.5 @ 24 lips on AC Rate 20, PEEP 16, TV 500, FiO2 100% -10/07 CXR reviewed -10/07 ABG 7.305/42.2/49.7/20.5 100% FiO2 -Repeat CXR on 10/07 shows likely volume overload -Repeat ABG on 10/07: 7.313/42.6/45.8/21.1 100% FiO2 -Dr. Storm is aware of this please findings -Serial ABG and CXR -Proning as tolerated (patient will be performed again today at 8 PM) -VAP bundle -SAT/SBT when able GI: Transaminitis -GI consulted, appreciate recommendations -10/02 abdominal ultrasound shows hepatomegaly, mild splenomegaly and trace perihepatic ascites, see report -No recorded BM since admit however patient had been on trickle feeds till 10/06 -BR: As needed MOM/Dulcolax, Senokot -PPI -Trend LFTs : OLIVIA 2/2 COVID 19 with underlying vasomotor nephropathy, acute rhabdomyolysis -Nephrology consulted, appreciate recommendations -Daily weights -Last 24-hour fluid balance positive 328 mL -Avoid nephrotoxic medications -Renally dose medications -patient received contrast on 10/02; Initiated hemodialysis 10/04 -HD per nephrology -Trend CK, BMP Endo: Hyperglycemia, h/o DM -Hemoglobin A1c pending -SSI, Accu-Cheks every 6 -Lantus -Avoid hypoglycemia Heme: Elevated D-dimer -Bilateral lower leg Doppler ultrasound negative for DVT/SVT -Transfuse for hemoglobin less than 7 -Systemic anticoagulation with heparin -Trend CBC ID: Sepsis, COVID-19 pneumonia -Infectious disease consulted, appreciate recommendations -Contact/isolation precautions -Steroids (10/03 through 10/13) -Ceftriaxone azithromycin for 5 days (10/03 through 10/07) -Awaiting Actemra x1 which was ordered by infectious disease but has been out of stock -Vitamin D/zinc/vitamin C -Patient is on a candidate for remdesivir due to renal function -Trend COVID-19 inflammatory markers The high probability of a clinically significant, sudden or life threatening deterioration of the [PULMONARY, NEUROLOGY] system(s) required my full and direct attention, intervention and personal management. The aggregate critical care time was [90] minutes. This time is in addition to time spent performing reported procedures but includes the following: [X] Data Review and interpretation [X] Patient assessment and monitoring of vital signs [X] Documentation [X] Medication orders and management Disposition Plan: ICU Total Time Spent with Patient (Minutes): 90 History Interval history: This is a 50-year-old male with HTN, DM who presented to the emergency department on 10/02 s/p being found unresponsive by his family with last known well at 8 PM on 09/30/2020 and was diagnosed with COVID-19 a week prior to presentation. Work-up in the emergency department revealed CK of 2554, transaminitis, elevated troponin, elevated BUN/creatinine and CT scan of the head showed subcortical white matter hypodensity in the right frontal lobe with no acute bleed and CXR showed bilateral pneumonia. Patient was admitted to the hospitalist service with consults to CCM, infectious disease, GI and nephrology as a COVID-19 PUI, OLIVIA, rhabdomyolysis, elevated liver enzymes, troponin, acute hypoxic respiratory failure with rule out CVA. 10/03: Patient continues on full ventilator support. Continues on steroids. Recommend Actemra given elevated CRP and intubation. Continue to monitor renal function. Control Panel Tester following patient may need dialysis support but will defer to biomedical manager. Will adjust insulin for better blood sugar control. GI input noted: LFT improving, consistent with combination of mild ischemic hepatitis and related to his covid infection, Hepatic synthetic function intact continue supportive care, avoid hepatotoxins and liver enzymes should continue to gradually normalize" Neurologist input is also noted recommending an MRI for further evaluation of abnormal CT head finding. 10/04: Patient seen and examined. D-dimer is elevated. Will start on heparin drip until final embolism is ruled out and DVT is ruled out. Will check creati nine kinase to ensure improvement in the rhabdomyolysis. Called family, unable to Obtain AND COULD NOT LEAVE A MESSAGE PER NURSE PATIENT DOES WAKE UP 10/05: Patient seen and examined, remains on full ventilatory support. Rhabdomylsis, improving, Patient started on HD, Awaiting MRI for further evalua tion. CXR done yesterday showed worsening bilateral infiltrate. ID input noted, Patient still following commands some when off sedation. - Continue Dexamethasone. - Awaiting Acetmara- Out of stock for now in the hospital - Renal function precludes Remdesivir - Continue heparin drip considering elevated D.dimer till VTE ruled out. 10/06: This morning has some examination patient sedated on propofol and fentanyl, MV with a PEEP of 14 and 80% FiO2. T-max 101.1. Patient still awaiting Actemra dose. Patient is prone at the time of my examination and will be supine at 1330. 10/07: Patient patient was proned again overnight and supinated around 1300. Patient's ventilatory settings were changed however he remains hypoxemic. Patient will be proned today at 8 PM per CCM. Versed gtt. Echo to be completed today Hospitalist Physical - Constitutional Vitals: Temp Pulse Resp BP Pulse Ox 101.2 F H 60 22 130/81 81 L 10/07/20 03:45 10/07/20 18:11 10/07/20 18:11 10/07/20 18:11 10/07/20 18:11 General appearance: Present: other (Intubated and sedated) - Respiratory Respiratory effort: normal Respiratory: bilateral: diminished, rhonchi - Cardiovascular Rhythm: regular - Extremities Extremities: no ischemia, pulses intact, pulses symmetrical, normal temperature, normal color Peripheral Pulses: within normal limits - Abdominal General gastrointestinal: soft, non-tender, non-distended - Integumentary Integumentary: Present: warm, dry - Psychiatric Psychiatric: other (sedated) - Neurologic Neurologic: other (sedated) - Additional findings Additional findings: Physical exam limited due to patient being in prone position - Allied Health Allied health notes reviewed: nursing, RT, social work HEART Score - HEART Score Troponin: Troponin T 0.036 ng/mL (0.00-0.029) H 10/02/20 01:01 Results - Labs CBC & Chem 7: 10/07/20 06:00 10/07/20 06:00 Labs: Laboratory Last Values WBC 16.2 K/mm3 (4.5-11.0) H 10/07/20 06:00 RBC 4.22 M/mm3 (3.65-5.03) 10/07/20 06:00 Hgb 11.0 gm/dl (11.8-15.2) L 10/07/20 06:00 Hct 34.7 % (35.5-45.6) L 10/07/20 06:00 MCV 82 fl (84-94) L 10/07/20 06:00 MCH 26 pg (28-32) L 10/07/20 06:00 MCHC 32 % (32-34) 10/07/20 06:00 RDW 14.4 % (13.2-15.2) 10/07/20 06:00 Plt Count 297 K/mm3 (140-440) 10/07/20 06:00 Add Manual Diff Complete 10/02/20 01:01 Total Counted 100 10/02/20 01:01 Seg Neuts % (Manual) 85.0 % (40.0-70.0) H 10/02/20 01:01 Band Neutrophils % 3.0 % 10/02/20 01:01 Lymphocytes % (Manual) 1.0 % (13.4-35.0) L 10/02/20 01:01 Monocytes % (Manual) 11.0 % (0.0-7.3) H 10/02/20 01:01 Nucleated RBC % 1.0 % (0.0-0.9) H 10/02/20 01:01 Seg Neutrophils # Man 9.4 K/mm3 (1.8-7.7) H 10/02/20 01:01 Band Neutrophils # 0.3 K/mm3 10/02/20 01:01 Lymphocytes # (Manual) 0.1 K/mm3 (1.2-5.4) L 10/02/20 01:01 Abs React Lymphs (Man) 0.0 K/mm3 10/02/20 01:01 Monocytes # (Manual) 1.2 K/mm3 (0.0-0.8) H 10/02/20 01:01 Eosinophils # (Manual) 0.0 K/mm3 (0.0-0.4) 10/02/20 01:01 Basophils # (Manual) 0.0 K/mm3 (0.0-0.1) 10/02/20 01:01 Metamyelocytes # 0.0 K/mm3 10/02/20 01:01 Myelocytes # 0.0 K/mm3 10/02/20 01:01 Promyelocytes # 0.0 K/mm3 10/02/20 01:01 Blast Cells # 0.0 K/mm3 10/02/20 01:01 WBC Morphology Not Reportable 10/02/20 01:01 Hypersegmented Neuts Not Reportable 10/02/20 01:01 Hyposegmented Neuts Not Reportable 10/02/20 01:01 Hypogranular Neuts Not Reportable 10/02/20 01:01 Smudge Cells Not Reportable 10/02/20 01:01 Toxic Granulation Not Reportable 10/02/20 01:01 Toxic Vacuolation Not Reportable 10/02/20 01:01 Dohle Bodies Not Reportable 10/02/20 01:01 Pelger-Huet Anomaly Not Reportable 10/02/20 01:01 Yohan Rods Not Reportable 10/02/20 01:01 Platelet Estimate Consistent w auto 10/02/20 01:01 Clumped Platelets Not Reportable 10/02/20 01:01 Plt Clumps, EDTA Not Reportable 10/02/20 01:01 Large Platelets Few 10/02/20 01:01 Giant Platelets Not Reportable 10/02/20 01:01 Platelet Satelliting Not Reportable 10/02/20 01:01 Plt Morphology Comment Not Reportable 10/02/20 01:01 RBC Morphology Not Reportable 10/02/20 01:01 Dimorphic RBCs Not Reportable 10/02/20 01:01 Polychromasia Not Reportable 10/02/20 01:01 Hypochromasia Not Reportable 10/02/20 01:01 Poikilocytosis Not Reportable 10/02/20 01:01 Anisocytosis 1+ 10/02/20 01:01 Microcytosis Not Reportable 10/02/20 01:01 Macrocytosis Not Reportable 10/02/20 01:01 Spherocytes Not Reportable 10/02/20 01:01 Pappenheimer Bodies Not Reportable 10/02/20 01:01 Sickle Cells Not Reportable 10/02/20 01:01 Target Cells Not Reportable 10/02/20 01:01 Tear Drop Cells Not Reportable 10/02/20 01:01 Ovalocytes Not Reportable 10/02/20 01:01 Helmet Cells Not Reportable 10/02/20 01:01 [place] Bodies Not Reportable 10/02/20 01:01 Cook Rings Not Reportable 10/02/20 01:01 [place] Cells Not Reportable 10/02/20 01:01 Bite Cells Not Reportable 10/02/20 01:01 Crenated Cell Not Reportable 10/02/20 01:01 Elliptocytes Not Reportable 10/02/20 01:01 Acanthocytes (Spur) Not Reportable 10/02/20 01:01 Rouleaux Not Reportable 10/02/20 01:01 Hemoglobin C Crystals Not Reportable 10/02/20 01:01 Schistocytes Not Reportable 10/02/20 01:01 Malaria parasites Not Reportable 10/02/20 01:01 [place] Bodies Not Reportable 10/02/20 01:01 Hem Pathologist Commnt No 10/02/20 01:01 PT 14.9 Sec. (12.2-14.9) 10/04/20 14:16 INR 1.12 (0.87-1.13) 10/04/20 14:16 APTT 28.5 Sec. (24.2-36.6) 10/04/20 14:16 Thrombin Time 23.2 Sec. (15.1-19.6) H 10/02/20 01:01 D-Dimer 2754.80 ng/mlDDU (0-234) H 10/06/20 06:53 Heparin Anti-Xa Level 0.26 U.I./ml (0.3-0.7) L 10/07/20 06:00 ABG pH 7.313 (7.320-7.450) L 10/07/20 17:17 POC ABG pCO2 42.6 mmHg (32.0-48.0) 10/07/20 17:17 POC ABG pO2 45.8 mmHg (83-108) L 10/07/20 17:17 POC ABG HCO3 21.1 10/07/20 17:17 ABG O2 Saturation 77.4 (0-100) 10/07/20 17:17 POC ABG Base Excess -4.9 10/07/20 17:17 ABG Hemoglobin 12.1 (12.0-17.5) 10/07/20 17:17 ABG Oxyhemoglobin 76.6 (94-98) L 10/07/20 17:17 ABG Methemoglobin 0.3 (0.0-1.5) 10/07/20 17:17 ABG Sodium 131.4 mmol/L (136.0-145.0) L 10/07/20 17:17 ABG Potassium 4.4 mmol/L (3.40-4.50) 10/07/20 17:17 ABG Chloride 99.0 mmol/L (98-107) 10/07/20 17:17 ABG Glucose 158 mg/dL (65-95) H 10/07/20 17:17 Carboxyhemoglobin 0.7 (0.5-1.5) 10/07/20 17:17 FiO2 % 100.0 10/07/20 17:17 Sodium 139 mmol/L (137-145) 10/07/20 06:00 Potassium 4.1 mmol/L (3.6-5.0) 10/07/20 06:00 Chloride 97.3 mmol/L (98-107) L 10/07/20 06:00 Carbon Dioxide 26 mmol/L (22-30) 10/07/20 06:00 Anion Gap 20 mmol/L 10/07/20 06:00 BUN 77 mg/dL (9-20) H 10/07/20 06:00 Creatinine 5.7 mg/dL (0.8-1.3) H 10/07/20 06:00 Estimated GFR 13 ml/min 10/07/20 06:00 BUN/Creatinine Ratio 14 % 10/07/20 06:00 Glucose 151 mg/dL (75-100) H 10/07/20 06:00 POC Glucose 152 mg/dL (70-105) H 10/07/20 17:40 Calcium 9.0 mg/dL (8.4-10.2) 10/07/20 06:00 Phosphorus 8.10 mg/dL (2.5-4.5) H 10/04/20 04:58 Ferritin > 2000.0 ng/mL (30.0-300.0) H 10/06/20 10:38 Total Bilirubin 0.30 mg/dL (0.1-1.2) 10/06/20 02:09 Direct Bilirubin < 0.2 mg/dL (0-0.2) 10/03/20 05:25 Indirect Bilirubin 0.1 mg/dL 10/03/20 05:25 AST 52 units/L (5-40) H 10/06/20 02:09 ALT 50 units/L (7-56) 10/06/20 02:09 Alkaline Phosphatase 80 units/L (35-129) 10/06/20 02:09 Lactate Dehydrogenase 802 units/L (91-180) H 10/06/20 02:09 Total Creatine Kinase 473 units/L (55-170) H 10/07/20 06:00 CK-MB (CK-2) 14.8 ng/mL (0.0-4.0) H 10/02/20 01:01 CK-MB (CK-2) Rel Index 0.5 (0-4) 10/02/20 01:01 Troponin T 0.036 ng/mL (0.00-0.029) H 10/02/20 01:01 C-Reactive Protein 27.00 mg/dL (0.00-1.30) H 10/06/20 02:09 Total Protein 5.2 g/dL (6.3-8.2) L 10/06/20 02:09 Albumin 2.3 g/dL (3.9-5) L 10/06/20 02:09 Albumin/Globulin Ratio 0.8 % 10/06/20 02:09 Triglycerides 392 mg/dL (2-149) H 10/06/20 02:09 Cholesterol 165 mg/dL (50-199) 10/02/20 01:01 LDL Cholesterol Direct TNR 10/02/20 01:01 HDL Cholesterol 31 mg/dL (40-59) L 10/02/20 01:01 Cholesterol/HDL Ratio 5.32 % 10/02/20 01:01 Procalcitonin 18.80 ng/mL (<0.15) 10/02/20 11:47 PTH Intact 140.3 pg/mL (15-65) H 10/04/20 04:58 Arterial Blood Glucose 158 mg/dL (65-95) H 10/07/20 17:17 Arterial Blood Ionized Calcium 4.5 mg/dL (4.6-5.3) L 10/07/20 17:17 Urine Color Alison (Yellow) 10/02/20 02:59 Urine Turbidity Cloudy (Clear) 10/02/20 02:59 Urine pH 5.0 (5.0-7.0) 10/02/20 02:59 Ur Specific [place] 1.025 (1.003-1.030) 10/02/20 02:59 Urine Protein >500 mg/dL (Negative) 10/02/20 02:59 Urine Glucose (UA) 50 mg/dL (Negative) 10/02/20 02:59 Urine Ketones Neg mg/dL (Negative) 10/02/20 02:59 Urine Blood Lg (Negative) 10/02/20 02:59 Urine Nitrite Neg (Negative) 10/02/20 02:59 Urine Bilirubin Neg (Negative) 10/02/20 02:59 Urine Urobilinogen < 2.0 mg/dL (<2.0) 10/02/20 02:59 Ur Leukocyte Esterase Neg (Negative) 10/02/20 02:59 Urine WBC (Auto) 8.0 /HPF (0.0-6.0) H 10/02/20 02:59 Urine RBC (Auto) 3.0 /HPF (0.0-6.0) 10/02/20 02:59 U Epithel Cells (Auto) 2.0 /HPF (0-13.0) 10/02/20 02:59 Amorphous Crystals Few 10/02/20 02:59 Urine Mucus Few /HPF 10/02/20 02:59 Urine Creatinine 156.1 mg/dL (0.1-20.0) H 10/03/20 06:30 Urine Sodium 22 mmol/L 10/03/20 06:30 Urine Opiates Screen Negative 10/02/20 02:59 Urine Methadone Screen Negative 10/02/20 02:59 Ur Barbiturates Screen Negative 10/02/20 02:59 Ur Phencyclidine Scrn Negative 10/02/20 02:59 Ur Amphetamines Screen Negative 10/02/20 02:59 U Benzodiazepines Scrn Negative 10/02/20 02:59 Urine Cocaine Screen Negative 10/02/20 02:59 U Marijuana (THC) Screen Negative 10/02/20 02:59 Drugs of Abuse Note Disclamer 10/02/20 02:59 Plasma/Serum Alcohol < 0.01 % (0-0.07) 10/02/20 01:01 Coronavirus (PCR) Positive (Negative) A 10/02/20 Unknown Hepatitis A IgM Ab Non-reactive (NonReactive) 10/02/20 01:01 Hep Bs Antigen Non-reactive (Negative) 10/02/20 01:01 Hep B Core IgM Ab Non-reactive (NonReactive) 10/02/20 01:01 Hepatitis C Antibody Non-reactive (NonReactive) 10/02/20 01:01 Microbiology: Microbiology 10/02/20 01:18 Peripheral/Venous Blood Culture - Final NO GROWTH AFTER 5 DAYS 10/02/20 01:13 Peripheral/Venous Blood Culture - Final NO GROWTH AFTER 5 DAYS [place]/IV: Voiding Method Indwelling Catheter Active Medications - Current Medications Current Medications: Generic Name Dose Route Start Last Admin Trade Name Freq PRN Reason Stop Dose Admin Acetaminophen 650 mg 10/02/20 05:23 10/06/20 22:49 Acetaminophen 325 Mg Tab PO 650 mg Q6H PRN Administration Pain MILD(1-3)/Fever >100.5/CL[place] Lipase/Protease/Amylase 1 each 10/04/20 12:06 Lipase 10,500/Protease 25,000/Amylase 43,750 (Units) Dr Albarran FEEDTUBE PRN PRN For Clogged Feeding Tube Ascorbic Acid 1,000 mg 10/06/20 22:00 10/07/20 09:35 Ascorbic Acid 500 Mg Tab PO 1,000 mg BID MUSTAPHA Administration Bisacodyl 10 mg 10/02/20 05:23 Bisacodyl 10 Mg Rect Supp OR QDAY PRN Constipation Cholecalciferol 1,000 unit 10/08/20 10:00 Cholecalciferol (Vit D3) 1000 Unit (25 Mcg) Tab PO DAILY MUSTAPHA Dexamethasone 6 mg 10/03/20 04:00 10/07/20 03:45 Dexamethasone 4 Mg/Ml Vial IV 10/12/20 04:01 6 mg Q24H MUSTAPHA Administration Dextrose 50 ml 10/02/20 06:44 Dextrose 50% In Water (25gm) 50 Ml Syringe IV Q30MIN PRN Hypoglycemia Protocol Famotidine 20 mg 10/07/20 10:00 10/07/20 09:35 Famotidine 20 Mg Tab PO 20 mg DAILY MUSTAPHA Administration Fentanyl 50 mcg 10/02/20 00:53 Fentanyl 100 Mcg/2 Ml Inj IV Q10MIN PRN ANALGESIA Glycopyrrolate 1 mg 10/06/20 14:00 10/07/20 14:33 Glycopyrrolate 1 Mg Tab PO 1 mg TID MUSTAPHA Administration Heparin Sodium (Porcine) 2,000 unit 10/04/20 12:18 Heparin 10,000 Units/10 Ml Vial IV RADHA PRN hemodialysis Heparin Sodium (Porcine) 3,400 unit 10/04/20 12:51 Heparin 10,000 Units/10 Ml Vial 40 unit/kg (3400 unit) IV Q6H PRN Anti-Xa Assay < 0.1 units/ml Hydrophilic Ointment 1 applic 10/02/20 00:53 Lip Therapy Vaseline TP Q2HR PRN Dry Lips Fentanyl Citrate 2,000 mcg in 100 mls @ 4.2 mls/hr 10/02/20 01:00 10/07/20 14:34 Fentanyl Drip Premix IV 4 mcg/kg/hr TITR MUSTAPHA 16.8 mls/hr Administration Protocol 1 MCG/KG/HR Propofol 1,000 mg in 100 mls @ 2.52 mls/hr 10/02/20 03:00 10/07/20 16:58 Diprivan 10 Mg/Ml IV 30 mcg/kg/min TITR MUSTAPHA 15.12 mls/hr Titration Protocol 5 MCG/KG/MIN TOCILIZUMAB 600 mg/ Sodium 130 mls @ 120 mls/hr 10/03/20 10:33 Chloride IV 10/03/20 11:37 ONCE ONE Sodium Chloride 100 mls @ 999 mls/hr 10/04/20 12:18 Nacl 0.9% IV RADHA PRN Hypotension Heparin Sodium/Sodium Chloride 25,000 unit in 500 mls @ 20 mls/hr 10/04/20 14:00 10/06/20 12:31 Heparin/ 0.45% Nacl-25,000 Unit/500 Ml IV 900 units/hr TITRATE MUSTAPHA 18 mls/hr Administration Protocol 1,000 UNITS/HR Midazolam HCl 100 mg/ Sodium 100 mls @ 1 mls/hr 10/07/20 15:00 10/07/20 16:58 Chloride IV 2 mg/hr TITR MUSTAPHA 2 mls/hr Titration Protocol 1 MG/HR Insulin Glargine 20 units 10/03/20 22:00 10/06/20 21:08 Insulin Glargine 100 Units/Ml SUB-Q 20 units QHS MUSTAPHA Administration Insulin Human Lispro 0 unit 10/02/20 12:00 10/07/20 18:10 Insulin Lispro 100 Unit/Ml SUB-Q 3 unit Q6HR MUSTAPHA Administration Protocol Magnesium Hydroxide 30 ml 10/02/20 05:23 Magnesium Hydroxide (Mom) Oral Liqd Udc PO Q4H PRN Constipation Metoclopramide HCl 5 mg 10/02/20 05:53 Metoclopramide 10 Mg Tab PO Q6H PRN Nausea And Vomiting Midazolam HCl 2 mg 10/07/20 14:02 Midazolam 2 Mg/2 Ml Inj IV Q10MIN PRN Sedation Multi-Ingred Cream/Lotion/Oil/Oint 1 applic 10/02/20 00:53 Mineral Oil/Petrolatum, White Ophth Oint 3.5 Gm OU Q4HR PRN Dry Eye(s) Ondansetron HCl 4 mg 10/02/20 05:23 Ondansetron 4 Mg/2 Ml Inj IV Q8H PRN Nausea And Vomiting Promethazine HCl 25 mg 10/02/20 05:23 Promethazine 25 Mg Rect Supp OR Q6H PRN Nausea And Vomiting Scopolamine 1 each 10/06/20 13:00 10/06/20 16:18 Scopolamine Transdermal Patch 72 Hr TD 1 each Q3D MUSTAPHA Administration Senna/Docusate Sodium 1 tab 10/02/20 22:00 10/07/20 09:36 Sennosides/Docusate Sodium 8.6/50 Mg Tab FEEDTUBE 1 tab BID MUSTAPHA Administration Simple Syrup 15 ml 10/04/20 12:06 Simple Syrup 15 Ml FEEDTUBE PRN PRN Hypoglycemia Simple Syrup 30 ml 10/04/20 12:06 Simple Syrup 15 Ml FEEDTUBE PRN PRN Hypoglycemia Sodium Bicarbonate 325 mg 10/04/20 12:06 Sodium Bicarbonate 325 Mg Tab FEEDTUBE PRN PRN For Clogged Feeding Tube Sodium Chloride 10 ml 10/02/20 10:00 10/07/20 09:36 Sodium Chloride 0.9% 10 Ml Flush Syringe IV 10 ml BID MUSTAPHA Administration Sodium Chloride 10 ml 10/02/20 05:23 10/06/20 03:48 Sodium Chloride 0.9% 10 Ml Flush Syringe IV 10 ml PRN PRN Administration LINE FLUSH Zinc Sulfate 220 mg 10/06/20 22:00 10/07/20 09:35 Zinc Sulfate 220 Mg Cap PO 220 mg BID MUSTAPHA Administration Nutrition/Malnutrition Assess - Dietary Evaluation Nutrition/Malnutrition Findings: Nutrition Notes Start: 10/02/20 07:33 Freq: Status: Active Protocol: Document 10/06/20 12:45 (Rec: 10/06/20 12:55 [id number]) Nutrition Notes Initial or Follow up Reassessment Current Diagnosis Acute Kidney Injury,Diabetes, Hypertension,Respiratory Failure Other Pertinent Diagnosis pneu, COVID Current Diet Nepro 1.8 at 40ml/hr Labs/Tests Reviewed Pertinent Medications Propofol at 25.2 ml/hr (665 kcal) Height 5 ft 10.8 in Weight 84 kg [place] Body Weight (kg) 77.63 BMI 25.9 Weight Status Overweight Subjective/Other Information Per RN, pt being proned for 12h. Will adjust TF. TF at 10 ml/hr Percent of energy/protein needs met: negigible Burn Absent Trauma Absent Current % PO Negligible Minimum of two criteria No physical signs of malnutrition #1 Nutrition Diagnosis Inadequate oral intake Diagnosis Progress(for reassessment Continues documentation) Is patient on ventilator? Yes Is Patient Ambulatory and/or Out of Bed No REE-([facility]-confined to bed) Calculation Used for Recommendations [facility] Additional Notes Protein: (1.2-2g/kg) 101-168g Fluid: 1 ml/kcal or per MD Nutrition Intervention Change Diet Order: continue Nutrition Support: For 12 Prone: 12 h prone: Nepro 1.8 at 10 ml /hr. Flush 50 ml q4h 12 h supine: Nepro 1.8 at 70 ml/hr. Flush 250 ml q4h or per MD. Kcal 1,728 Protein (gm) 78 Fluid (mL) 698 Goal #1 Meet at least 75% of EER via TF Anticipated Discharge Needs: unable to determine at this time Follow-Up By: 10/09/20 Additional Comments F/u: TF at goal and tolerance
[2020-10-07] MEDS: HEPARIN/ 0.45% NACL DRIP 25,000 UNIT/500 ML BAG IV SCH (19:50)
[2020-10-07] MEDS: ACETAMINOPHEN 325 MG TAB PO PRN (21:42)
[2020-10-07] MEDS: INSULIN GLARGINE 100 UNITS/ML SUB-Q SCH (21:45)
[2020-10-08] MEDS: fentaNYL DRIP Premix 2,000 MCG/100 ML BAG IV SCH ×5 (00:17→23:04)
[2020-10-08] MEDS: dexAMETHasone 4 MG/ML VIAL IV SCH (04:10)
[2020-10-08 05:03] LABS: Hematocrit 36.6 % (35.5-45.6); Hemoglobin 11.7 gm/dl (11.8-15.2); Mean Corpuscular HGB Conc 32 % (32-34); Mean Corpuscular Volume 82 fl (84-94); Platelet Count 296 K/mm3 (140-440); Red Blood Count 4.46 M/mm3 (3.65-5.03)
[2020-10-08 05:23] LABS: C-Reactive Protein 28.7 mg/dL (0.00-1.30)
[2020-10-08] MEDS: INSULIN LISPRO 100 UNIT/ML SUB-Q SCH ×4 (05:43→18:08)
[2020-10-08] MEDS: GLYCOPYRROLATE 1 MG TAB PO SCH ×3 (10:21→22:42)
[2020-10-08] MEDS: CHOLECALCIFEROL (VIT D3) 1000 UNIT (25 mcg) TAB PO SCH (10:21)
[2020-10-08] MEDS: MIDAZOLAM 100 MG in SODIUM CHLORIDE 0.9% 80 ML IV SCH (10:21)
[2020-10-08] MEDS: ZINC SULFATE 220 MG CAP PO SCH ×2 (10:21→22:42)
[2020-10-08] MEDS: ASCORBIC ACID 500 MG TAB PO SCH ×2 (10:21→22:55)
[2020-10-08] MEDS: FAMOTIDINE 20 MG TAB PO SCH (10:22)
[2020-10-08] MEDS: SENNOSIDES/DOCUSATE SODIUM 8.6/50 MG TAB FEEDTUBE SCH ×2 (10:22→22:42)
--- NOTE | 2020-10-08 11:29 | Progress Note ---
Assessment and Plan 1. Acute kidney injury: OLIVIA in the setting of severe Covid infection. Received IV contrast 10/02. FeNa low. Renal US negative for hydro. Monitor renal function. BUN and Creatinine level remains high. Avoid nephrotoxic agents. Meds dosage based on GFR. Monitor for [employer] needs. Patient was started on hemodialysis due to worsening renal function. Hemodialysis: 10/04, 10/06. HD today. 2. FEN: ICU requested me to do dialysis last night, but pt was proned at that time. HD today. Monitor lytes and volume status. 3. Acute respiratory failure with hypoxemia: 2/2 Covid PNA. On vent, wean as tolerated. 4. Covid PNA: Followed by ID. 5. Acute encephalopathy, POA: Multifactorial. R/O Seizure. CT brain remarkable for left frontal hypodensity. EEG suggestive of encephalopathy. R/O CVA. 6. Rhabdomyolysis: Trend CK, improving. 7. Elevated ALT & AST: Trend. 8. DM type 2: Monitor. Subjective: Patient was seen and examined at the bedside. D/w ICU PA. Examination: General appearance: well-developed, appears stated age, intubated on vent HEENT: atraumatic Neck: proned Respiratory: MV sounds Heart: S1S2 Abdomen: proned Integumentary: no obvious rash Neurologic: not responding Ext: no edema : Blanchard catheter Hemodialysis access: R IJ temp catheter Subjective Date of service: 10/08/20 Principal diagnosis: Ac hypoxemic resp; COVID-19; Pneumonia; OLIVIA; Ac encephalopathy; NSTEMI Objective - Vital Signs Vital signs: Vital Signs - 12hr 10/07/20 10/07/20 10/07/20 23:30 23:41 23:51 Temperature Pulse Rate 77 77 73 Pulse Rate [ From Monitor] Respiratory 22 21 23 Rate Blood Pressure 100/62 100/62 109/66 O2 Sat by Pulse 84 83 L 83 L Oximetry 10/08/20 10/08/20 10/08/20 00:00 00:11 00:21 Temperature 100.4 F H Pulse Rate 73 76 72 Pulse Rate [ 82 From Monitor] Respiratory 22 23 25 H Rate Blood Pressure 101/65 101/65 103/64 O2 Sat by Pulse 82 L 83 L 79 L Oximetry 10/08/20 10/08/20 10/08/20 00:26 00:30 00:41 Temperature Pulse Rate 74 72 76 Pulse Rate [ From Monitor] Respiratory 25 H 22 Rate Blood Pressure 103/64 105/72 105/72 O2 Sat by Pulse 82 L 79 L 81 L Oximetry 10/08/20 10/08/20 10/08/20 00:51 01:00 01:11 Temperature Pulse Rate 77 74 80 Pulse Rate [ From Monitor] Respiratory 24 23 23 Rate Blood Pressure 121/69 113/67 113/67 O2 Sat by Pulse 81 L 82 L 82 L Oximetry 10/08/20 10/08/20 10/08/20 01:21 01:30 01:41 Temperature Pulse Rate 78 75 77 Pulse Rate [ From Monitor] Respiratory 23 23 23 Rate Blood Pressure 122/65 122/70 122/70 O2 Sat by Pulse 82 L 82 L 83 L Oximetry 10/08/20 10/08/20 10/08/20 01:51 02:00 02:11 Temperature Pulse Rate 76 75 73 Pulse Rate [ From Monitor] Respiratory 22 23 24 Rate Blood Pressure 126/67 113/67 113/67 O2 Sat by Pulse 82 L 82 L 83 L Oximetry 10/08/20 10/08/20 10/08/20 02:21 02:30 02:41 Temperature Pulse Rate 77 79 75 Pulse Rate [ From Monitor] Respiratory 22 23 23 Rate Blood Pressure 128/69 128/68 128/68 O2 Sat by Pulse 82 L 82 L 82 L Oximetry 10/08/20 10/08/20 10/08/20 02:51 03:00 03:11 Temperature Pulse Rate 78 73 74 Pulse Rate [ From Monitor] Respiratory 24 20 23 Rate Blood Pressure 116/67 119/67 119/67 O2 Sat by Pulse 83 L 82 L 82 L Oximetry 10/08/20 10/08/20 10/08/20 03:21 03:30 03:41 Temperature Pulse Rate 72 75 73 Pulse Rate [ From Monitor] Respiratory 22 22 23 Rate Blood Pressure 120/68 124/66 124/66 O2 Sat by Pulse 83 L 83 L 82 L Oximetry 10/08/20 10/08/20 10/08/20 03:45 03:47 03:51 Temperature 100.7 F H Pulse Rate 75 72 Pulse Rate [ From Monitor] Respiratory 23 Rate Blood Pressure 125/65 125/65 O2 Sat by Pulse 83 L 83 L Oximetry 10/08/20 10/08/20 10/08/20 04:00 04:11 04:21 Temperature Pulse Rate 75 74 71 Pulse Rate [ 76 From Monitor] Respiratory 23 23 24 Rate Blood Pressure 117/66 117/66 125/65 O2 Sat by Pulse 83 L 83 L 82 L Oximetry 10/08/20 10/08/20 10/08/20 04:30 04:41 04:51 Temperature Pulse Rate 71 72 71 Pulse Rate [ From Monitor] Respiratory 24 24 24 Rate Blood Pressure 129/69 129/69 128/69 O2 Sat by Pulse 81 L 81 L 80 L Oximetry 10/08/20 10/08/20 10/08/20 05:00 05:11 05:21 Temperature Pulse Rate 71 72 72 Pulse Rate [ From Monitor] Respiratory 24 24 25 H Rate Blood Pressure 123/70 123/70 131/73 O2 Sat by Pulse 79 L 81 L 81 L Oximetry 10/08/20 10/08/20 10/08/20 05:30 05:41 05:51 Temperature Pulse Rate 71 71 73 Pulse Rate [ From Monitor] Respiratory 26 H 25 H 24 Rate Blood Pressure 141/72 141/72 127/70 O2 Sat by Pulse 82 L 77 L 79 L Oximetry 10/08/20 10/08/20 10/08/20 06:00 06:11 06:21 Temperature Pulse Rate 73 72 71 Pulse Rate [ From Monitor] Respiratory 25 H 25 H 24 Rate Blood Pressure 141/76 141/76 138/70 O2 Sat by Pulse 76 L 77 L 79 L Oximetry 10/08/20 10/08/20 10/08/20 06:30 06:41 06:51 Temperature Pulse Rate 71 70 68 Pulse Rate [ From Monitor] Respiratory 24 23 23 Rate Blood Pressure 127/69 127/69 138/70 O2 Sat by Pulse 79 L 80 L 81 L Oximetry 10/08/20 10/08/20 10/08/20 07:00 07:11 07:21 Temperature Pulse Rate 71 67 68 Pulse Rate [ From Monitor] Respiratory 23 22 22 Rate Blood Pressure 130/71 130/71 127/68 O2 Sat by Pulse 81 L 81 L 82 L Oximetry 10/08/20 10/08/20 10/08/20 07:30 07:41 07:51 Temperature Pulse Rate 67 66 66 Pulse Rate [ From Monitor] Respiratory 21 20 22 Rate Blood Pressure 123/76 123/76 129/71 O2 Sat by Pulse 82 L 82 L 83 L Oximetry 10/08/20 10/08/20 10/08/20 08:00 08:11 08:15 Temperature Pulse Rate 68 63 63 Pulse Rate [ 80 From Monitor] Respiratory 24 21 Rate Blood Pressure 124/69 124/69 125/73 O2 Sat by Pulse 79 L 83 L 83 L Oximetry 10/08/20 10/08/20 10/08/20 08:21 08:30 08:41 Temperature Pulse Rate 66 64 64 Pulse Rate [ From Monitor] Respiratory 21 22 21 Rate Blood Pressure 125/73 129/70 129/70 O2 Sat by Pulse 83 L 83 L 82 L Oximetry 10/08/20 10/08/20 10/08/20 08:51 09:00 09:11 Temperature Pulse Rate 66 66 64 Pulse Rate [ From Monitor] Respiratory 22 22 19 Rate Blood Pressure 122/69 123/69 123/69 O2 Sat by Pulse 83 L 83 L 84 Oximetry 10/08/20 10/08/20 10/08/20 09:21 09:30 09:41 Temperature Pulse Rate 67 66 67 Pulse Rate [ From Monitor] Respiratory 21 21 Rate Blood Pressure 121/68 118/68 118/68 O2 Sat by Pulse 83 L 85 82 L Oximetry 10/08/20 10/08/20 10/08/20 09:51 10:00 10:11 Temperature Pulse Rate 64 61 Pulse Rate [ From Monitor] Respiratory 24 24 Rate Blood Pressure 124/66 126/68 126/68 O2 Sat by Pulse 83 L 83 L 65 L Oximetry 10/08/20 10/08/20 10/08/20 10:21 10:30 10:41 Temperature Pulse Rate 89 86 81 Pulse Rate [ From Monitor] Respiratory 24 26 H 24 Rate Blood Pressure 163/90 143/83 143/83 O2 Sat by Pulse 84 85 87 Oximetry 10/08/20 10/08/20 10:51 11:00 Temperature Pulse Rate 81 85 Pulse Rate [ From Monitor] Respiratory 24 24 Rate Blood Pressure 128/79 129/74 O2 Sat by Pulse 80 L 88 Oximetry - Lab 10/08/20 04:20 10/08/20 04:20 Most recent lab results ABG pH 7.341 (7.320-7.450) 10/08/20 04:00 ABG O2 Saturation 78.6 (0-100) 10/08/20 04:00 Calcium 9.0 mg/dL (8.4-10.2) 10/08/20 04:20 Phosphorus 8.10 mg/dL (2.5-4.5) H 10/04/20 04:58 Urine Creatinine 156.1 mg/dL (0.1-20.0) H 10/03/20 06:30 Urine Sodium 22 mmol/L 10/03/20 06:30 Medications & Allergies - Medications Allergies/Adverse Reactions: Allergies No Known Allergies Allergy (Verified 10/02/20 01:44) Active Medications: Generic Name Dose Route Start Last Admin Trade Name Freq PRN Reason Stop Dose Admin Acetaminophen 650 mg 10/02/20 05:23 08 21:42 Acetaminophen 325 Mg Tab PO 650 mg Q6H PRN Administration Pain MILD(1-3)/Fever >100.5/[place] Lipase/Protease/Amylase 1 each 10/04/20 12:06 Lipase 10,500/Protease 25,000/Amylase 43,750 (Units) Dr Albarran FEEDTUBE PRN PRN For Clogged Feeding Tube Ascorbic Acid 1,000 mg 10/06/20 22:00 10/08/20 10:21 Ascorbic Acid 500 Mg Tab PO 1,000 mg BID MUSTAPHA Administration Bisacodyl 10 mg 10/02/20 05:23 Bisacodyl 10 Mg Rect Supp MS QDAY PRN Constipation Cholecalciferol 1,000 unit 10/08/20 10:00 10/08/20 10:21 Cholecalciferol (Vit D3) 1000 Unit (25 Mcg) Tab PO 1,000 unit DAILY MUSTAPHA Administration Dexamethasone 6 mg 10/03/20 04:00 10/08/20 04:10 Dexamethasone 4 Mg/Ml Vial IV 10/12/20 04:01 6 mg Q24H MUSTAPHA Administration Dextrose 50 ml 10/02/20 06:44 Dextrose 50% In Water (25gm) 50 Ml Syringe IV Q30MIN PRN Hypoglycemia Protocol Famotidine 20 mg 10/07/20 10:00 10/08/20 10:22 Famotidine 20 Mg Tab PO 20 mg DAILY MUSTAPHA Administration Fentanyl 50 mcg 10/02/20 00:53 Fentanyl 100 Mcg/2 Ml Inj IV Q10MIN PRN ANALGESIA Glycopyrrolate 1 mg 10/06/20 14:00 10/08/20 10:21 Glycopyrrolate 1 Mg Tab PO 1 mg TID MUSTAPHA Administration Heparin Sodium (Porcine) 2,000 unit 10/04/20 12:18 Heparin 10,000 Units/10 Ml Vial IV RADHA PRN hemodialysis Heparin Sodium (Porcine) 3,400 unit 10/04/20 12:51 Heparin 10,000 Units/10 Ml Vial 40 unit/kg (3400 unit) IV Q6H PRN Anti-Xa Assay < 0.1 units/ml Hydrophilic Ointment 1 applic 10/02/20 00:53 Lip Therapy Vaseline TP Q2HR PRN Dry Lips Fentanyl Citrate 2,000 mcg in 100 mls @ 4.2 mls/hr 10/02/20 01:00 10/08/20 06:06 Fentanyl Drip Premix IV 4 mcg/kg/hr TITR MUSTAPHA 16.8 mls/hr Administration Protocol 1 MCG/KG/HR Propofol 1,000 mg in 100 mls @ 2.52 mls/hr 10/02/20 03:00 10/08/20 06:06 Diprivan 10 Mg/Ml IV 5 mcg/kg/min TITR MUSTAPHA 2.52 mls/hr Titration Protocol 5 MCG/KG/MIN Sodium Chloride 100 mls @ 999 mls/hr 10/04/20 12:18 Nacl 0.9% IV RADHA PRN Hypotension Heparin Sodium/Sodium Chloride 25,000 unit in 500 mls @ 20 mls/hr 10/04/20 14:00 10/07/20 19:50 Heparin/ 0.45% Nacl-25,000 Unit/500 Ml IV 900 units/hr TITRATE MUSTAPHA 18 mls/hr Administration Protocol 1,000 UNITS/HR Midazolam HCl 100 mg/ Sodium 100 mls @ 1 mls/hr 10/07/20 15:00 10/08/20 10:21 Chloride IV 5 mg/hr TITR MUSTAPHA 5 mls/hr Administration Protocol 1 MG/HR TOCILIZUMAB 648 mg/ Sodium 103.6 mls @ 103.6 mls/hr 10/08/20 12:00 Chloride IV 10/08/20 12:59 ONCE ONE Insulin Glargine 20 units 10/03/20 22:00 10/07/20 21:45 Insulin Glargine 100 Units/Ml SUB-Q 20 units QHS MUSTAPHA Administration Insulin Human Lispro 0 unit 10/02/20 12:00 10/08/20 05:43 Insulin Lispro 100 Unit/Ml SUB-Q Not Given Q6HR [facility] Protocol Magnesium Hydroxide 30 ml 10/02/20 05:23 Magnesium Hydroxide (Mom) Oral Liqd Udc PO Q4H PRN Constipation Metoclopramide HCl 5 mg 10/02/20 05:53 Metoclopramide 10 Mg Tab PO Q6H PRN Nausea And Vomiting Midazolam HCl 2 mg 10/07/20 14:02 Midazolam 2 Mg/2 Ml Inj IV Q10MIN PRN Sedation Multi-Ingred Cream/Lotion/Oil/Oint 1 applic 10/02/20 00:53 Mineral Oil/Petrolatum, White Ophth Oint 3.5 Gm OU Q4HR PRN Dry Eye(s) Ondansetron HCl 4 mg 10/02/20 05:23 Ondansetron 4 Mg/2 Ml Inj IV Q8H PRN Nausea And Vomiting Promethazine HCl 25 mg 10/02/20 05:23 Promethazine 25 Mg Rect Supp MS Q6H PRN Nausea And Vomiting Scopolamine 1 each 10/06/20 13:00 10/06/20 16:18 Scopolamine Transdermal Patch 72 Hr TD 1 each Q3D MUSTAPHA Administration Senna/Docusate Sodium 1 tab 10/02/20 22:00 10/08/20 10:22 Sennosides/Docusate Sodium 8.6/50 Mg Tab FEEDTUBE 1 tab BID MUSTAPHA Administration Simple Syrup 15 ml 10/04/20 12:06 Simple Syrup 15 Ml FEEDTUBE PRN PRN Hypoglycemia Simple Syrup 30 ml 10/04/20 12:06 Simple Syrup 15 Ml FEEDTUBE PRN PRN Hypoglycemia Sodium Bicarbonate 325 mg 10/04/20 12:06 Sodium Bicarbonate 325 Mg Tab FEEDTUBE PRN PRN For Clogged Feeding Tube Sodium Chloride 10 ml 10/02/20 10:00 10/07/20 21:46 Sodium Chloride 0.9% 10 Ml Flush Syringe IV 10 ml BID MUSTAPHA Administration Sodium Chloride 10 ml 10/02/20 05:23 10/06/20 03:48 Sodium Chloride 0.9% 10 Ml Flush Syringe IV 10 ml PRN PRN Administration LINE FLUSH Zinc Sulfate 220 mg 10/06/20 22:00 10/08/20 10:21 Zinc Sulfate 220 Mg Cap PO 220 mg BID MUSTAPHA Administration
--- NOTE | 2020-10-08 11:32 | Progress Note ---
Assessment and Plan Assessment and plan: This is a 50-year-old male with HTN, DM who was diagnosed with COVID-19 approximately 1 week prior to presentation admitted for COVID-19 pneumonia, acute respiratory failure, rule out CVA, acute encephalopathy, sepsis, OLIVIA. Neuro: Acute encephalopathy, rule out CVA -Neurology consulted, appreciate recommendations -Goal RASS -3 to -4 while proned -Sedated with fentanyl and propofol -MRI brain or CT brain pending as patient is too unstable at this time -10/02 CT head with abnormal finding, see reading -10/02 CTA head, see report -10/02 CTA neck, see report -10/02 carotid Doppler ultrasound, see report -EEG pending Cardiology: SRSB, H/O HTN -Blood pressure monitoring per protocol -Patient is now normotensive -Echocardiogram shows LVEF 50 to 55%, saline bubble contrast intravenous injection demonstrates PFO, trace MR, mild AR, trace to mild TR, RVSP is 33 mmHg, mild KS with no pleural effusion Respiratory: Acute hypoxic respiratory failure -CM consulted, appreciate recommendations -OETT 7.5 @ 24 lips on AC Rate 20, PEEP 16, TV 500, FiO2 100% -10/08 CXR reviewed -10/08 ABG 7.305/42.2/47/22 100% FiO2 -Repeat CXR on 10/08 reviewed -10/08 aBG reviewed -Serial ABG and CXR -Proning as tolerated -VAP bundle -SAT/SBT when able -Prone as needed GI: Transaminitis, TF -GI and NTR consulted, appreciate recommendations -10/02 abdominal ultrasound shows hepatomegaly, mild splenomegaly and trace perihepatic ascites, see report -BR: Senokot, miralax; PRN MOM/Dulcolax, -will give mag citrate -PPI -Trend LFTs : OLIVIA 2/2 COVID 19 with underlying vasomotor nephropathy, acute rhabdomyolysis -Nephrology consulted, appreciate recommendations -Daily weights -Last 24-hour fluid balance positive 2211 -Avoid nephrotoxic medications -Renally dose medications -patient received contrast on 10/02; Initiated hemodialysis 10/04 -HD per nephrology -Trend CK, BMP Endo: Hyperglycemia, h/o DM -Hemoglobin A1c pending -SSI, Accu-Cheks every 6 -Lantus -Avoid hypoglycemia Heme: Elevated D-dimer -Bilateral lower leg Doppler ultrasound negative for DVT/SVT -Transfuse for hemoglobin less than 7 -Systemic anticoagulation with heparin gtt -Trend CBC ID: Sepsis, COVID-19 pneumonia -Infectious disease consulted, appreciate recommendations -Contact/isolation precautions -Steroids (10/03 through 10/13) -Ceftriaxone azithromycin for 5 days (10/03 through 10/07) -Awaiting Actemra x1 which was ordered by infectious disease but has been out of stock -Vitamin D/zinc/vitamin C -Patient is on a candidate for remdesivir due to renal function -Trend COVID-19 inflammatory markers -Prone as needed The high probability of a clinically significant, sudden or life threatening deterioration of the [PULMONARY, NEUROLOGY] system(s) required my full and direct attention, intervention and personal management. The aggregate critical care time was [90] minutes. This time is in addition to time spent performing reported procedures but includes the following: [X] Data Review and interpretation [X] Patient assessment and monitoring of vital signs [X] Documentation [X] Medication orders and management Disposition Plan: icu Total Time Spent with Patient (Minutes): 90 History Interval history: This is a 50-year-old male with HTN, DM who presented to the emergency department on 10/02 s/p being found unresponsive by his family with last known well at 8 PM on 09/30/2020 and was diagnosed with COVID-19 a week prior to presentation. Work-up in the emergency department revealed CK of 2554, transaminitis, elevated troponin, elevated BUN/creatinine and CT scan of the head showed subcortical white matter hypodensity in the right frontal lobe with no acute bleed and CXR showed bilateral pneumonia. Patient was admitted to the hospitalist service with consults to [facility], infectious disease, GI and nephrology as a COVID-19 PUI, OLIVIA, rhabdomyolysis, elevated liver enzymes, troponin, acute hypoxic respiratory failure with rule out CVA. 10/03: Patient continues on full ventilator support. Continues on steroids. Recommend Actemra given elevated CRP and intubation. Continue to monitor renal function. Baseball Sewer Hand following patient may need dialysis support but will defer to filling station laborer. Will adjust insulin for better blood sugar control. GI input noted: LFT improving, consistent with combination of mild ischemic hepatitis and related to his covid infection, Hepatic synthetic function intact continue supportive care, avoid hepatotoxins and liver enzymes should continue to gradually normalize" Neurologist input is also noted recommending an MRI for further evaluation of abnormal CT head finding. 10/04: Patient seen and examined. D-dimer is elevated. Will start on heparin drip until final embolism is ruled out and DVT is ruled out. Will check creatinine kinase to ensure improvement in the rhabdomyolysis. Called family, unable to Obtain AND COULD NOT LEAVE A MESSAGE PER NURSE PATIENT DOES WAKE UP 10/05: Patient seen and examined, remains on full ventilatory support. Rhabd omylsis, improving, Patient started on HD, Awaiting MRI for further evaluation. CXR done yesterday showed worsening bilateral infiltrate. ID input noted, Patient still following commands some when off sedation. - Continue Dexamethasone. - Awaiting Acetmara- Out of stock for now in the hospital - Renal function precludes Remdesivir - Continue heparin drip considering elevated D.dimer till VTE ruled out. 10/06: This morning has some examination patient sedated on propofol and fentanyl, MV with a PEEP of 14 and 80% FiO2. T-max 101.1. Patient still awaiting Actemra dose. Patient is prone at the time of my examination and will be supine at 1330. 10/07: Patient patient was proned again overnight and supinated around 1300. Patient's ventilatory settings were changed however he remains hypoxemic. Patient will be proned today at 8 PM per CCM. Versed gtt. Echo to be completed today 10/08: Patient was proned at 2000 and supine now, SP02 now 90%. Remains on AC at 100% FiO2. Possible HD today. Overnight the patient consistently satted in the 80s. Hospitalist Physical - Constitutional Vitals: Temp Pulse Resp BP Pulse Ox 100.7 F H 85 24 129/74 88 10/08/20 03:45 10/08/20 11:00 10/08/20 11:00 10/08/20 11:00 10/08/20 11:00 General appearance: Present: other (Intubated and sedated) HEART Score - HEART Score Troponin: Troponin T 0.036 ng/mL (0.00-0.029) H 10/02/20 01:01 Results - Labs CBC & Chem 7: 10/08/20 04:20 10/08/20 04:20 Labs: Laboratory Last Values WBC 17.1 K/mm3 (4.5-11.0) H 10/08/20 04:20 RBC 4.46 M/mm3 (3.65-5.03) 10/08/20 04:20 Hgb 11.7 gm/dl (11.8-15.2) L 10/08/20 04:20 Hct 36.6 % (35.5-45.6) 10/08/20 04:20 MCV 82 fl (84-94) L 10/08/20 04:20 MCH 26 pg (28-32) L 10/08/20 04:20 MCHC 32 % (32-34) 10/08/20 04:20 RDW 15.0 % (13.2-15.2) 10/08/20 04:20 Plt Count 296 K/mm3 (140-440) 10/08/20 04:20 Add Manual Diff Complete 10/02/20 01:01 Total Counted 100 10/02/20 01:01 Seg Neuts % (Manual) 85.0 % (40.0-70.0) H 10/02/20 01:01 Band Neutrophils % 3.0 % 10/02/20 01:01 Lymphocytes % (Manual) 1.0 % (13.4-35.0) L 10/02/20 01:01 Monocytes % (Manual) 11.0 % (0.0-7.3) H 10/02/20 01:01 Nucleated RBC % 1.0 % (0.0-0.9) H 10/02/20 01:01 Seg Neutrophils # Man 9.4 K/mm3 (1.8-7.7) H 10/02/20 01:01 Band Neutrophils # 0.3 K/mm3 10/02/20 01:01 Lymphocytes # (Manual) 0.1 K/mm3 (1.2-5.4) L 10/02/20 01:01 Abs React Lymphs (Man) 0.0 K/mm3 10/02/20 01:01 Monocytes # (Manual) 1.2 K/mm3 (0.0-0.8) H 10/02/20 01:01 Eosinophils # (Manual) 0.0 K/mm3 (0.0-0.4) 10/02/20 01:01 Basophils # (Manual) 0.0 K/mm3 (0.0-0.1) 10/02/20 01:01 Metamyelocytes # 0.0 K/mm3 10/02/20 01:01 Myelocytes # 0.0 K/mm3 10/02/20 01:01 Promyelocytes # 0.0 K/mm3 10/02/20 01:01 Blast Cells # 0.0 K/mm3 10/02/20 01:01 WBC Morphology Not Reportable 10/02/20 01:01 Hypersegmented Neuts Not Reportable 10/02/20 01:01 Hyposegmented Neuts Not Reportable 10/02/20 01:01 Hypogranular Neuts Not Reportable 10/02/20 01:01 Smudge Cells Not Reportable 10/02/20 01:01 Toxic Granulation Not Reportable 10/02/20 01:01 Toxic Vacuolation Not Reportable 10/02/20 01:01 Dohle Bodies Not Reportable 10/02/20 01:01 Pelger-Huet Anomaly Not Reportable 10/02/20 01:01 Yohan Rods Not Reportable 10/02/20 01:01 Platelet Estimate Consistent w auto 10/02/20 01:01 Clumped Platelets Not Reportable 10/02/20 01:01 Plt Clumps, EDTA Not Reportable 10/02/20 01:01 Large Platelets Few 10/02/20 01:01 Giant Platelets Not Reportable 10/02/20 01:01 Platelet Satelliting Not Reportable 10/02/20 01:01 Plt Morphology Comment Not Reportable 10/02/20 01:01 RBC Morphology Not Reportable 10/02/20 01:01 Dimorphic RBCs Not Reportable 10/02/20 01:01 Polychromasia Not Reportable 10/02/20 01:01 Hypochromasia Not Reportable 10/02/20 01:01 Poikilocytosis Not Reportable 10/02/20 01:01 Anisocytosis 1+ 10/02/20 01:01 Microcytosis Not Reportable 10/02/20 01:01 Macrocytosis Not Reportable 10/02/20 01:01 Spherocytes Not Reportable 10/02/20 01:01 Pappenheimer Bodies Not Reportable 10/02/20 01:01 Sickle Cells Not Reportable 10/02/20 01:01 Target Cells Not Reportable 10/02/20 01:01 Tear Drop Cells Not Reportable 10/02/20 01:01 Ovalocytes Not Reportable 10/02/20 01:01 Helmet Cells Not Reportable 10/02/20 01:01 [place] Bodies Not Reportable 10/02/20 01:01 [place] Rings Not Reportable 10/02/20 01:01 Obdulia Cells Not Reportable 10/02/20 01:01 Bite Cells Not Reportable 10/02/20 01:01 Crenated Cell Not Reportable 10/02/20 01:01 Elliptocytes Not Reportable 10/02/20 01:01 Acanthocytes (Spur) Not Reportable 10/02/20 01:01 Rouleaux Not Reportable 10/02/20 01:01 Hemoglobin C Crystals Not Reportable 10/02/20 01:01 Schistocytes Not Reportable 10/02/20 01:01 Malaria parasites Not Reportable 10/02/20 01:01 Shekhar Bodies Not Reportable 10/02/20 01:01 Hem Pathologist Commnt No 10/02/20 01:01 PT 14.9 Sec. (12.2-14.9) 10/04/20 14:16 INR 1.12 (0.87-1.13) 10/04/20 14:16 APTT 28.5 Sec. (24.2-36.6) 10/04/20 14:16 Thrombin Time 23.2 Sec. (15.1-19.6) H 10/02/20 01:01 D-Dimer 4280.35 ng/mlDDU (0-234) H 10/08/20 04:20 Heparin Anti-Xa Level 0.14 U.I./ml (0.3-0.7) L 10/08/20 04:20 ABG pH 7.341 (7.320-7.450) 10/08/20 04:00 POC ABG pCO2 41.7 mmHg (32.0-48.0) 10/08/20 04:00 POC ABG pO2 46.9 mmHg (83-108) L 10/08/20 04:00 POC ABG HCO3 22.0 10/08/20 04:00 ABG O2 Saturation 78.6 (0-100) 10/08/20 04:00 POC ABG Base Excess -3.5 10/08/20 04:00 ABG Hemoglobin 12.6 (12.0-17.5) 10/08/20 04:00 ABG Oxyhemoglobin 77.7 (94-98) L 10/08/20 04:00 ABG Methemoglobin 0.3 (0.0-1.5) 10/08/20 04:00 ABG Sodium 134.1 mmol/L (136.0-145.0) L 10/08/20 04:00 ABG Potassium 4.6 mmol/L (3.40-4.50) H 10/08/20 04:00 ABG Chloride 99.0 mmol/L (98-107) 10/08/20 04:00 ABG Glucose 120 mg/dL (65-95) H 10/08/20 04:00 Carboxyhemoglobin 0.8 (0.5-1.5) 10/08/20 04:00 FiO2 % 100.0 10/08/20 04:00 Sodium 138 mmol/L (137-145) 10/08/20 04:20 Potassium 5.1 mmol/L (3.6-5.0) H D 10/08/20 04:20 Chloride 94.8 mmol/L (98-107) L 10/08/20 04:20 Carbon Dioxide 22 mmol/L (22-30) 10/08/20 04:20 Anion Gap 26 mmol/L 10/08/20 04:20 BUN 103 mg/dL (9-20) H 10/08/20 04:20 Creatinine 7.3 mg/dL (0.8-1.3) H 10/08/20 04:20 Estimated GFR 10 ml/min 10/08/20 04:20 BUN/Creatinine Ratio 14 % 10/08/20 04:20 Glucose 107 mg/dL (75-100) H 10/08/20 04:20 POC Glucose 101 mg/dL (70-105) 10/08/20 05:24 Calcium 9.0 mg/dL (8.4-10.2) 10/08/20 04:20 Phosphorus 8.10 mg/dL (2.5-4.5) H 10/04/20 04:58 Ferritin > 2000.0 ng/mL (30.0-300.0) H 10/06/20 10:38 Total Bilirubin 0.30 mg/dL (0.1-1.2) 10/06/20 02:09 Direct Bilirubin < 0.2 mg/dL (0-0.2) 10/03/20 05:25 Indirect Bilirubin 0.1 mg/dL 10/03/20 05:25 AST 52 units/L (5-40) H 10/06/20 02:09 ALT 50 units/L (7-56) 10/06/20 02:09 Alkaline Phosphatase 80 units/L (35-129) 10/06/20 02:09 Lactate Dehydrogenase 786 units/L (91-180) H 10/08/20 04:20 Total Creatine Kinase 473 units/L (55-170) H 10/07/20 06:00 CK-MB (CK-2) 14.8 ng/mL (0.0-4.0) H 10/02/20 01:01 CK-MB (CK-2) Rel Index 0.5 (0-4) 10/02/20 01:01 Troponin T 0.036 ng/mL (0.00-0.029) H 10/02/20 01:01 C-Reactive Protein 28.70 mg/dL (0.00-1.30) H 10/08/20 04:20 Total Protein 5.2 g/dL (6.3-8.2) L 10/06/20 02:09 Albumin 2.3 g/dL (3.9-5) L 10/06/20 02:09 Albumin/Globulin Ratio 0.8 % 10/06/20 02:09 Triglycerides 392 mg/dL (2-149) H 10/06/20 02:09 Cholesterol 165 mg/dL (50-199) 10/02/20 01:01 LDL Cholesterol Direct TNR 10/02/20 01:01 HDL Cholesterol 31 mg/dL (40-59) L 10/02/20 01:01 Cholesterol/HDL Ratio 5.32 % 10/02/20 01:01 Procalcitonin 18.80 ng/mL (<0.15) 10/02/20 11:47 PTH Intact 140.3 pg/mL (15-65) H 10/04/20 04:58 Arterial Blood Glucose 120 mg/dL (65-95) H 10/08/20 04:00 Arterial Blood Ionized Calcium 4.3 mg/dL (4.6-5.3) L 10/08/20 04:00 Urine Color Alison (Yellow) 10/02/20 02:59 Urine Turbidity Cloudy (Clear) 10/02/20 02:59 Urine pH 5.0 (5.0-7.0) 10/02/20 02:59 Ur Specific [place] 1.025 (1.003-1.030) 10/02/20 02:59 Urine Protein >500 mg/dL (Negative) 10/02/20 02:59 Urine Glucose (UA) 50 mg/dL (Negative) 10/02/20 02:59 Urine Ketones Neg mg/dL (Negative) 10/02/20 02:59 Urine Blood Lg (Negative) 10/02/20 02:59 Urine Nitrite Neg (Negative) 10/02/20 02:59 Urine Bilirubin Neg (Negative) 10/02/20 02:59 Urine Urobilinogen < 2.0 mg/dL (<2.0) 10/02/20 02:59 Ur Leukocyte Esterase Neg (Negative) 10/02/20 02:59 Urine WBC (Auto) 8.0 /HPF (0.0-6.0) H 10/02/20 02:59 Urine RBC (Auto) 3.0 /HPF (0.0-6.0) 10/02/20 02:59 U Epithel Cells (Auto) 2.0 /HPF (0-13.0) 10/02/20 02:59 Amorphous Crystals Few 10/02/20 02:59 Urine Mucus Few /HPF 10/02/20 02:59 Urine Creatinine 156.1 mg/dL (0.1-20.0) H 10/03/20 06:30 Urine Sodium 22 mmol/L 10/03/20 06:30 Urine Opiates Screen Negative 10/02/20 02:59 Urine Methadone Screen Negative 10/02/20 02:59 Ur Barbiturates Screen Negative 10/02/20 02:59 Ur Phencyclidine Scrn Negative 10/02/20 02:59 Ur Amphetamines Screen Negative 10/02/20 02:59 U Benzodiazepines Scrn Negative 10/02/20 02:59 Urine Cocaine Screen Negative 10/02/20 02:59 U Marijuana (THC) Screen Negative 10/02/20 02:59 Drugs of Abuse Note Disclamer 10/02/20 02:59 Plasma/Serum Alcohol < 0.01 % (0-0.07) 10/02/20 01:01 Coronavirus (PCR) Positive (Negative) A 10/02/20 Unknown Hepatitis A IgM Ab Non-reactive (NonReactive) 10/02/20 01:01 Hep Bs Antigen Non-reactive (Negative) 10/02/20 01:01 Hep B Core IgM Ab Non-reactive (NonReactive) 10/02/20 01:01 Hepatitis C Antibody Non-reactive (NonReactive) 10/02/20 01:01 [place]/IV: Voiding Method Indwelling Catheter Active Medications - Current Medications Current Medications: Generic Name Dose Route Start Last Admin Trade Name Freq PRN Reason Stop Dose Admin Acetaminophen 650 mg 10/02/20 05:23 10/07/20 21:42 Acetaminophen 325 Mg Tab PO 650 mg Q6H PRN Administration Pain MILD(1-3)/Fever >100.5/CLIFTON Lipase/Protease/Amylase 1 each 10/04/20 12:06 Lipase 10,500/Protease 25,000/Amylase 43,750 (Units) Dr Cap FEEDTUBE PRN PRN For Clogged Feeding Tube Ascorbic Acid 1,000 mg 10/06/20 22:00 10/08/20 10:21 Ascorbic Acid 500 Mg Tab PO 1,000 mg BID MUSTAPHA Administration Bisacodyl 10 mg 10/02/20 05:23 Bisacodyl 10 Mg Rect Supp [place] QDAY PRN Constipation Cholecalciferol 1,000 unit 10/08/20 10:00 10/08/20 10:21 Cholecalciferol (Vit D3) 1000 Unit (25 Mcg) Tab PO 1,000 unit DAILY MUSTAPHA Administration Dexamethasone 6 mg 10/03/20 04:00 10/08/20 04:10 Dexamethasone 4 Mg/Ml Vial IV 10/12/20 04:01 6 mg Q24H MUSTAPHA Administration Dextrose 50 ml 10/02/20 06:44 Dextrose 50% In Water (25gm) 50 Ml Syringe IV Q30MIN PRN Hypoglycemia Protocol Famotidine 20 mg 10/07/20 10:00 10/08/20 10:22 Famotidine 20 Mg Tab PO 20 mg DAILY MUSTAPHA Administration Fentanyl 50 mcg 10/02/20 00:53 Fentanyl 100 Mcg/2 Ml Inj IV Q10MIN PRN ANALGESIA Glycopyrrolate 1 mg 10/06/20 14:00 10/08/20 10:21 Glycopyrrolate 1 Mg Tab PO 1 mg TID MUSTAPHA Administration Heparin Sodium (Porcine) 2,000 unit 10/04/20 12:18 Heparin 10,000 Units/10 Ml Vial IV RADHA PRN hemodialysis Heparin Sodium (Porcine) 3,400 unit 10/04/20 12:51 Heparin 10,000 Units/10 Ml Vial 40 unit/kg (3400 unit) IV Q6H PRN Anti-Xa Assay < 0.1 units/ml Hydrophilic Ointment 1 applic 10/02/20 00:53 Lip Therapy Vaseline TP Q2HR PRN Dry Lips Fentanyl Citrate 2,000 mcg in 100 mls @ 4.2 mls/hr 10/02/20 01:00 10/08/20 06:06 Fentanyl Drip Premix IV 4 mcg/kg/hr TITR MUSTAPHA 16.8 mls/hr Administration Protocol 1 MCG/KG/HR Propofol 1,000 mg in 100 mls @ 2.52 mls/hr 10/02/20 03:00 10/08/20 06:06 Diprivan 10 Mg/Ml IV 5 mcg/kg/min TITR MUSTAPHA 2.52 mls/hr Titration Protocol 5 MCG/KG/MIN TOCILIZUMAB 600 mg/ Sodium 130 mls @ 120 mls/hr 10/03/20 10:33 Chloride IV 10/03/20 11:37 ONCE ONE Sodium Chloride 100 mls @ 999 mls/hr 10/04/20 12:18 Nacl 0.9% IV RADHA PRN Hypotension Heparin Sodium/Sodium Chloride 25,000 unit in 500 mls @ 20 mls/hr 10/04/20 14:00 10/07/20 19:50 Heparin/ 0.45% Nacl-25,000 Unit/500 Ml IV 900 units/hr TITRATE MUSTAPHA 18 mls/hr Administration Protocol 1,000 UNITS/HR Midazolam HCl 100 mg/ Sodium 100 mls @ 1 mls/hr 10/07/20 15:00 10/08/20 10:21 Chloride IV 5 mg/hr TITR MUSTAPHA 5 mls/hr Administration Protocol 1 MG/HR Insulin Glargine 20 units 10/03/20 22:00 10/07/20 21:45 Insulin Glargine 100 Units/Ml SUB-Q 20 units QHS [facility] Administration Insulin Human Lispro 0 unit 10/02/20 12:00 10/08/20 05:43 Insulin Lispro 100 Unit/Ml SUB-Q Not Given Q6HR [facility] Protocol Magnesium Hydroxide 30 ml 10/02/20 05:23 Magnesium Hydroxide (Mom) Oral Liqd Udc PO Q4H PRN Constipation Metoclopramide HCl 5 mg 10/02/20 05:53 Metoclopramide 10 Mg Tab PO Q6H PRN Nausea And Vomiting Midazolam HCl 2 mg 10/07/20 14:02 Midazolam 2 Mg/2 Ml Inj IV Q10MIN PRN Sedation Multi-Ingred Cream/Lotion/Oil/Oint 1 applic 10/02/20 00:53 Mineral Oil/Petrolatum, White Ophth Oint 3.5 Gm OU Q4HR PRN Dry Eye(s) Ondansetron HCl 4 mg 10/02/20 05:23 Ondansetron 4 Mg/2 Ml Inj IV Q8H PRN Nausea And Vomiting Promethazine HCl 25 mg 10/02/20 05:23 Promethazine 25 Mg Rect Supp [place] Q6H PRN Nausea And Vomiting Scopolamine 1 each 10/06/20 13:00 10/06/20 16:18 Scopolamine Transdermal Patch 72 Hr TD 1 each Q3D MUSTAPHA Administration Senna/Docusate Sodium 1 tab 10/02/20 22:00 10/08/20 10:22 Sennosides/Docusate Sodium 8.6/50 Mg Tab FEEDTUBE 1 tab BID MUSTAPHA Administration Simple Syrup 15 ml 10/04/20 12:06 Simple Syrup 15 Ml FEEDTUBE PRN PRN Hypoglycemia Simple Syrup 30 ml 10/04/20 12:06 Simple Syrup 15 Ml FEEDTUBE PRN PRN Hypoglycemia Sodium Bicarbonate 325 mg 10/04/20 12:06 Sodium Bicarbonate 325 Mg Tab FEEDTUBE PRN PRN For Clogged Feeding Tube Sodium Chloride 10 ml 10/02/20 10:00 10/07/20 21:46 Sodium Chloride 0.9% 10 Ml Flush Syringe IV 10 ml BID MUSTAPHA Administration Sodium Chloride 10 ml 10/02/20 05:23 10/06/20 03:48 Sodium Chloride 0.9% 10 Ml Flush Syringe IV 10 ml PRN PRN Administration LINE FLUSH Zinc Sulfate 220 mg 10/06/20 22:00 10/08/20 10:21 Zinc Sulfate 220 Mg Cap PO 220 mg BID MUSTAPHA Administration Nutrition/Malnutrition Assess - Dietary Evaluation Nutrition/Malnutrition Findings: Nutrition Notes Start: 10/02/20 07:33 Freq: Status: Active Protocol: Document 10/06/20 12:45 MK (Rec: 10/06/20 12:55 TODD [id number]) Nutrition Notes Initial or Follow up Reassessment Current Diagnosis Acute Kidney Injury,Diabetes, Hypertension,Respiratory Failure Other Pertinent Diagnosis pneu, COVID Current Diet Nepro 1.8 at 40ml/hr Labs/Tests Reviewed Pertinent Medications Propofol at 25.2 ml/hr (665 kcal) Height 5 ft 10.8 in Weight 84 kg [place] Body Weight (kg) 77.63 BMI 25.9 Weight Status Overweight Subjective/Other Information Per RN, pt being proned for 12h. Will adjust TF. TF at 10 ml/hr Percent of energy/protein needs met: negigible Burn Absent Trauma Absent Current % PO Negligible Minimum of two criteria No physical signs of malnutrition #1 Nutrition Diagnosis Inadequate oral intake Diagnosis Progress(for reassessment Continues documentation) Is patient on ventilator? Yes Is Patient Ambulatory and/or Out of Bed No REE-(Runnels-St Jeor-confined to bed) Calculation Used for Recommendations [facility] Additional Notes Protein: (1.2-2g/kg) 101-168g Fluid: 1 ml/kcal or per MD Nutrition Intervention Change Diet Order: continue Nutrition Support: For 12 Prone: 12 h prone: Nepro 1.8 at 10 ml /hr. Flush 50 ml q4h 12 h supine: Nepro 1.8 at 70 ml/hr. Flush 250 ml q4h or per MD. Kcal 1,728 Protein (gm) 78 Fluid (mL) 698 Goal #1 Meet at least 75% of EER via TF Anticipated Discharge Needs: unable to determine at this time Follow-Up By: 10/09/20 Additional Comments F/u: TF at goal and tolerance
[2020-10-08] MEDS ORDERED: TOCILIZUMAB 648 MG in SODIUM CHLORIDE 0.9% 100 ML IV ONE (12:00)
--- NOTE | 2020-10-08 12:07 | Progress Note ---
Assessment and Plan Acute hypoxemic respiratory failure on MVS COVID-19 infection Bilateral pneumonia Acute kidney injury Acute toxic metabolic encephalopathy Rhabdomyolysis Elevated serum inflammatory markers to include the D-dimers as well as ferritin level Non-ST elevation myocardial infarction Oropharyngeal dysphagia - repeat ABG re: O2 sat's / pO2 discrepancy - give 300 ml's mag citrate - begin qhs Miralax - continue proning - continue HD/UF for toxin and volume clearance - follow 2D ECHO - continue care as below otherwise; - continue scopolamine and robinul for copious non-bloody secretions - continue Daily SAT and SBT assessment as tolerated - continue to wean supplemental oxygen for target O2 sat's > 90% acutely - VAP bundle addressed - continue lung protective strategies - continue bronchodilators with pulmonary hygiene per RT - wean per pulmonary driven protocols otherwise - continue accuchecks with glycemic control per SSI (While critically ill target blood glucose of 140-180 mg/dL; avoid hypoglycemia) - sedation prn for target RASS 0 to -1 - avoid nephrotoxins, renally dose all medications - continue to avoid benzodiazepine's, reduce the possibility of delirium - complete AB's per ID rec's - prn analgesia per CPOT score - Maintenance of sleep-wake cycle, avoid delirium - continue enteral nutritional support at goal rate as tolerated - G.I. & VTE prophylaxis - PT/OT/ROM exercises - continue mobility protocols for pressure ulcer prophylaxis - Monitor hemodynamics closely - continue other care per attending / other consultants - discharge planning ongoing concurrently COVID SPECIFIC INTERVENTIONS - To receive Actemra - Remdesivir as per ID/Pulmonary developed protocols (not a candidate) - continue systemic steroids for severe COVID-19 infection empirically - follow repeat COVID tests results - zinc and vitamin C supplementation - Monitor inflammatory markers per facility protocol - ferritin, Ddimer, CRP - therapeutic anticoagulation per system Protocol based on d-dimer and clinical considerations - Continue contact and airborne isolation .... Re-evaluate in am & prn CONDITION: CRITICAL PROGNOSIS: GUARDED CODE STATUS: FULL CODE The high probability of a clinically significant, sudden or life-threatening deterioration of the [respiratory, cardiovascular, renal & neurologic] system(s) required my full and direct attention, intervention and personal management. The aggregate critical care time was [34] minutes without overlap. Time includes spent on; [x] Data Review and interpretation [x] Patient assessment and monitoring of vital signs [x] Documentation [x] Medication orders and management Subjective Date of service: 10/08/20 Principal diagnosis: Ac hypoxemic resp; COVID-19; Pneumonia; OLIVIA; Ac encephalopathy; NSTEMI Interval history: Patient is seen today for: Acute hypoxemic respiratory; COVID-19 infection; Pneumonia; OLIVIA; Acute toxic metabolic encephalopathy; NSTEMI Seen and examined at bedside; 24hour events reviewed; nursing and respiratory care staff consulted; no adverse overnight events reported to me; resting in bed; remains with ARDS; O2 sat's in low 90's now with pulse ox change-out; sedated; for dialysis today; no BM's in past few days Objective Vital Signs - 12hr 10/08/20 10/08/20 10/08/20 00:11 00:21 00:26 Temperature Pulse Rate 76 72 74 Pulse Rate [ From Monitor] Respiratory 23 25 H Rate Blood Pressure 101/65 103/64 103/64 O2 Sat by Pulse 83 L 79 L 82 L Oximetry 10/08/20 10/08/20 10/08/20 00:30 00:41 00:51 Temperature Pulse Rate 72 76 77 Pulse Rate [ From Monitor] Respiratory 25 H 22 24 Rate Blood Pressure 105/72 105/72 121/69 O2 Sat by Pulse 79 L 81 L 81 L Oximetry 10/08/20 10/08/20 10/08/20 01:00 01:11 01:21 Temperature Pulse Rate 74 80 78 Pulse Rate [ From Monitor] Respiratory 23 23 23 Rate Blood Pressure 113/67 113/67 122/65 O2 Sat by Pulse 82 L 82 L 82 L Oximetry 10/08/20 10/08/20 10/08/20 01:30 01:41 01:51 Temperature Pulse Rate 75 77 76 Pulse Rate [ From Monitor] Respiratory 23 23 22 Rate Blood Pressure 122/70 122/70 126/67 O2 Sat by Pulse 82 L 83 L 82 L Oximetry 10/08/20 10/08/20 10/08/20 02:00 02:11 02:21 Temperature Pulse Rate 75 73 77 Pulse Rate [ From Monitor] Respiratory 23 24 22 Rate Blood Pressure 113/67 113/67 128/69 O2 Sat by Pulse 82 L 83 L 82 L Oximetry 10/08/20 10/08/20 10/08/20 02:30 02:41 02:51 Temperature Pulse Rate 79 75 78 Pulse Rate [ From Monitor] Respiratory 23 23 24 Rate Blood Pressure 128/68 128/68 116/67 O2 Sat by Pulse 82 L 82 L 83 L Oximetry 10/08/20 10/08/20 10/08/20 03:00 03:11 03:21 Temperature Pulse Rate 73 74 72 Pulse Rate [ From Monitor] Respiratory 20 23 22 Rate Blood Pressure 119/67 119/67 120/68 O2 Sat by Pulse 82 L 82 L 83 L Oximetry 10/08/20 10/08/20 10/08/20 03:30 03:41 03:45 Temperature 100.7 F H Pulse Rate 75 73 Pulse Rate [ From Monitor] Respiratory 22 23 Rate Blood Pressure 124/66 124/66 O2 Sat by Pulse 83 L 82 L Oximetry 10/08/20 10/08/20 10/08/20 03:47 03:51 04:00 Temperature Pulse Rate 75 72 75 Pulse Rate [ 76 From Monitor] Respiratory 23 23 Rate Blood Pressure 125/65 125/65 117/66 O2 Sat by Pulse 83 L 83 L 83 L Oximetry 10/08/20 10/08/20 10/08/20 04:11 04:21 04:30 Temperature Pulse Rate 74 71 71 Pulse Rate [ From Monitor] Respiratory 23 24 24 Rate Blood Pressure 117/66 125/65 129/69 O2 Sat by Pulse 83 L 82 L 81 L Oximetry 10/08/20 10/08/20 10/08/20 04:41 04:51 05:00 Temperature Pulse Rate 72 71 71 Pulse Rate [ From Monitor] Respiratory 24 24 24 Rate Blood Pressure 129/69 128/69 123/70 O2 Sat by Pulse 81 L 80 L 79 L Oximetry 10/08/20 10/08/20 10/08/20 05:11 05:21 05:30 Temperature Pulse Rate 72 72 71 Pulse Rate [ From Monitor] Respiratory 24 25 H 26 H Rate Blood Pressure 123/70 131/73 141/72 O2 Sat by Pulse 81 L 81 L 82 L Oximetry 10/08/20 10/08/20 10/08/20 05:41 05:51 06:00 Temperature Pulse Rate 71 73 73 Pulse Rate [ From Monitor] Respiratory 25 H 24 25 H Rate Blood Pressure 141/72 127/70 141/76 O2 Sat by Pulse 77 L 79 L 76 L Oximetry 10/08/20 10/08/20 10/08/20 06:11 06:21 06:30 Temperature Pulse Rate 72 71 71 Pulse Rate [ From Monitor] Respiratory 25 H 24 24 Rate Blood Pressure 141/76 138/70 127/69 O2 Sat by Pulse 77 L 79 L 79 L Oximetry 10/08/20 10/08/20 10/08/20 06:41 06:51 07:00 Temperature Pulse Rate 70 68 71 Pulse Rate [ From Monitor] Respiratory 23 23 23 Rate Blood Pressure 127/69 138/70 130/71 O2 Sat by Pulse 80 L 81 L 81 L Oximetry 10/08/20 10/08/20 10/08/20 07:11 07:21 07:30 Temperature Pulse Rate 67 68 67 Pulse Rate [ From Monitor] Respiratory 22 22 21 Rate Blood Pressure 130/71 127/68 123/76 O2 Sat by Pulse 81 L 82 L 82 L Oximetry 10/08/20 10/08/20 10/08/20 07:41 07:51 08:00 Temperature Pulse Rate 66 66 68 Pulse Rate [ 80 From Monitor] Respiratory 20 22 24 Rate Blood Pressure 123/76 129/71 124/69 O2 Sat by Pulse 82 L 83 L 79 L Oximetry 10/08/20 10/08/20 10/08/20 08:11 08:15 08:21 Temperature Pulse Rate 63 63 66 Pulse Rate [ From Monitor] Respiratory 21 21 Rate Blood Pressure 124/69 125/73 125/73 O2 Sat by Pulse 83 L 83 L 83 L Oximetry 10/08/20 10/08/20 10/08/20 08:30 08:41 08:51 Temperature Pulse Rate 64 64 66 Pulse Rate [ From Monitor] Respiratory 22 21 22 Rate Blood Pressure 129/70 129/70 122/69 O2 Sat by Pulse 83 L 82 L 83 L Oximetry 10/08/20 10/08/20 10/08/20 09:00 09:11 09:21 Temperature Pulse Rate 66 64 67 Pulse Rate [ From Monitor] Respiratory 22 19 21 Rate Blood Pressure 123/69 123/69 121/68 O2 Sat by Pulse 83 L 84 83 L Oximetry 10/08/20 10/08/20 10/08/20 09:30 09:41 09:51 Temperature Pulse Rate 66 67 64 Pulse Rate [ From Monitor] Respiratory 21 21 24 Rate Blood Pressure 118/68 118/68 124/66 O2 Sat by Pulse 85 82 L 83 L Oximetry 10/08/20 10/08/20 10/08/20 10:00 10:11 10:21 Temperature Pulse Rate 61 89 Pulse Rate [ From Monitor] Respiratory 24 24 Rate Blood Pressure 126/68 126/68 163/90 O2 Sat by Pulse 83 L 65 L 84 Oximetry 10/08/20 10/08/20 10/08/20 10:30 10:41 10:51 Temperature Pulse Rate 86 81 81 Pulse Rate [ From Monitor] Respiratory 26 H 24 24 Rate Blood Pressure 143/83 143/83 128/79 O2 Sat by Pulse 85 87 80 L Oximetry 10/08/20 11:00 Temperature Pulse Rate 85 Pulse Rate [ From Monitor] Respiratory 24 Rate Blood Pressure 129/74 O2 Sat by Pulse 88 Oximetry Constitutional: no acute distress, other (middle aged male with mildly increased respiratory effort at rest on MVS) Eyes: non-icteric ENT: oropharynx moist, other (ETT 24 cm CARY) Neck: supple, no lymphadenopathy, no JVD, other (large circumference) Effort: mildly labored Ascultation: Bilateral: diminished breath sounds, rhonchi Percussion: Bilateral: not dull Cardiovascular: regular rate and rhythm Gastrointestinal: normoactive bowel sounds, soft, non-tender, non-distended (protuberant) Integumentary: normal Extremities: no cyanosis, no edema, pulses normal, no ischemia or petechiae, edema (peripheral) Neurologic: non-focal exam (grossly), pupils equal and round, unable to assess, other (sedated) Psychiatric: other (unable to assess re: AMS) CBC and BMP: 10/08/20 04:20 10/08/20 04:20 ABG, PT/INR, D-dimer: ABG ABG pH 7.341 (7.320-7.450) 10/08/20 04:00 POC ABG pCO2 41.7 mmHg (32.0-48.0) 10/08/20 04:00 POC ABG pO2 46.9 mmHg (83-108) L 10/08/20 04:00 POC ABG HCO3 22.0 10/08/20 04:00 ABG O2 Saturation 78.6 (0-100) 10/08/20 04:00 PT/INR, D-dimer PT 14.9 Sec. (12.2-14.9) 10/04/20 14:16 INR 1.12 (0.87-1.13) 10/04/20 14:16 D-Dimer 4280.35 ng/mlDDU (0-234) H 10/08/20 04:20 Abnormal lab findings: Abnormal Labs 10/02/20 10/02/20 10/02/20 01:01 01:01 01:01 WBC RBC 5.04 H Hgb Hct MCV 81 L MCH 27 L Seg Neuts % (Manual) 85.0 H Lymphocytes % (Manual) 1.0 L Monocytes % (Manual) 11.0 H Nucleated RBC % 1.0 H Seg Neutrophils # Man 9.4 H Lymphocytes # (Manual) 0.1 L Monocytes # (Manual) 1.2 H PT 15.3 H INR 1.16 H Thrombin Time 23.2 H D-Dimer Heparin Anti-Xa Level ABG pH POC ABG pO2 ABG Oxyhemoglobin ABG Sodium ABG Potassium ABG Chloride ABG Glucose Carboxyhemoglobin Sodium 133 L Potassium Chloride 85.1 L BUN 66 H Creatinine 5.6 H Glucose 292 H POC Glucose Phosphorus Ferritin AST 173 H ALT 139 H Lactate Dehydrogenase Total Creatine Kinase 2544 H CK-MB (CK-2) 14.8 H Troponin T 0.036 H C-Reactive Protein Total Protein Albumin 3.3 L Triglycerides 427 H HDL Cholesterol 31 L PTH Intact Arterial Blood Glucose Arterial Blood Ionized Calcium Urine WBC (Auto) Urine Creatinine Coronavirus (PCR) 10/02/20 10/02/20 10/02/20 02:59 03:51 11:47 WBC RBC Hgb Hct MCV MCH Seg Neuts % (Manual) Lymphocytes % (Manual) Monocytes % (Manual) Nucleated RBC % Seg Neutrophils # Man Lymphocytes # (Manual) Monocytes # (Manual) PT INR Thrombin Time D-Dimer Heparin Anti-Xa Level ABG pH POC ABG pO2 55.2 L ABG Oxyhemoglobin 85.4 L ABG Sodium 132.0 L ABG Potassium ABG Chloride 89.0 L ABG Glucose 372 H Carboxyhemoglobin Sodium Potassium Chloride BUN Creatinine Glucose POC Glucose Phosphorus Ferritin AST ALT Lactate Dehydrogenase Total Creatine Kinase 2548 H CK-MB (CK-2) Troponin T C-Reactive Protein Total Protein Albumin Triglycerides HDL Cholesterol PTH Intact Arterial Blood Glucose 372 H Arterial Blood Ionized Calcium Urine WBC (Auto) 8.0 H Urine Creatinine Coronavirus (PCR) 10/02/20 10/02/20 10/02/20 11:47 11:47 11:47 WBC RBC Hgb Hct MCV MCH Seg Neuts % (Manual) Lymphocytes % (Manual) Monocytes % (Manual) Nucleated RBC % Seg Neutrophils # Man Lymphocytes # (Manual) Monocytes # (Manual) PT INR Thrombin Time D-Dimer 1023.48 H Heparin Anti-Xa Level ABG pH POC ABG pO2 ABG Oxyhemoglobin ABG Sodium ABG Potassium ABG Chloride ABG Glucose Carboxyhemoglobin Sodium Potassium Chloride BUN Creatinine Glucose POC Glucose Phosphorus Ferritin 8643.0 H AST ALT Lactate Dehydrogenase 828 H Total Creatine Kinase CK-MB (CK-2) Troponin T C-Reactive Protein 13.60 H Total Protein Albumin Triglycerides HDL Cholesterol PTH Intact Arterial Blood Glucose Arterial Blood Ionized Calcium Urine WBC (Auto) Urine Creatinine Coronavirus (PCR) 10/02/20 10/02/20 10/02/20 18:48 23:51 Unknown WBC RBC Hgb Hct MCV MCH Seg Neuts % (Manual) Lymphocytes % (Manual) Monocytes % (Manual) Nucleated RBC % Seg Neutrophils # Man Lymphocytes # (Manual) Monocytes # (Manual) PT INR Thrombin Time D-Dimer Heparin Anti-Xa Level ABG pH POC ABG pO2 ABG Oxyhemoglobin ABG Sodium ABG Potassium ABG Chloride ABG Glucose Carboxyhemoglobin Sodium Potassium Chloride BUN Creatinine Glucose POC Glucose 441 H 457 H Phosphorus Ferritin AST ALT Lactate Dehydrogenase Total Creatine Kinase CK-MB (CK-2) Troponin T C-Reactive Protein Total Protein Albumin Triglycerides HDL Cholesterol PTH Intact Arterial Blood Glucose Arterial Blood Ionized Calcium Urine WBC (Auto) Urine Creatinine Coronavirus (PCR) Positive A 10/03/20 10/03/20 10/03/20 05:22 05:25 05:25 WBC RBC Hgb Hct MCV MCH Seg Neuts % (Manual) Lymphocytes % (Manual) Monocytes % (Manual) Nucleated RBC % Seg Neutrophils # Man Lymphocytes # (Manual) Monocytes # (Manual) PT INR Thrombin Time D-Dimer Heparin Anti-Xa Level ABG pH POC ABG pO2 74.3 L ABG Oxyhemoglobin 93.2 L ABG Sodium 133.6 L ABG Potassium ABG Chloride 92.0 L ABG Glucose 399 H Carboxyhemoglobin 0.3 L Sodium 135 L Potassium Chloride 88.0 L BUN 102 H Creatinine 7.5 H Glucose 383 H POC Glucose Phosphorus Ferritin AST 71 H ALT 88 H Lactate Dehydrogenase Total Creatine Kinase 1597 H CK-MB (CK-2) Troponin T C-Reactive Protein Total Protein Albumin 2.6 L Triglycerides HDL Cholesterol PTH Intact Arterial Blood Glucose 399 H Arterial Blood Ionized Calcium Urine WBC (Auto) Urine Creatinine Coronavirus (PCR) 10/03/20 10/03/20 10/03/20 06:09 06:30 09:06 WBC RBC Hgb Hct MCV MCH Seg Neuts % (Manual) Lymphocytes % (Manual) Monocytes % (Manual) Nucleated RBC % Seg Neutrophils # Man Lymphocytes # (Manual) Monocytes # (Manual) PT INR Thrombin Time D-Dimer Heparin Anti-Xa Level ABG pH POC ABG pO2 ABG Oxyhemoglobin ABG Sodium ABG Potassium ABG Chloride ABG Glucose Carboxyhemoglobin Sodium Potassium Chloride BUN Creatinine Glucose POC Glucose 360 H 298 H Phosphorus Ferritin AST ALT Lactate Dehydrogenase Total Creatine Kinase CK-MB (CK-2) Troponin T C-Reactive Protein Total Protein Albumin Triglycerides HDL Cholesterol PTH Intact Arterial Blood Glucose Arterial Blood Ionized Calcium Urine WBC (Auto) Urine Creatinine 156.1 H Coronavirus (PCR) 10/03/20 10/03/20 10/03/20 13:07 16:37 21:32 WBC RBC Hgb Hct MCV MCH Seg Neuts % (Manual) Lymphocytes % (Manual) Monocytes % (Manual) Nucleated RBC % Seg Neutrophils # Man Lymphocytes # (Manual) Monocytes # (Manual) PT INR Thrombin Time D-Dimer Heparin Anti-Xa Level ABG pH POC ABG pO2 ABG Oxyhemoglobin ABG Sodium ABG Potassium ABG Chloride ABG Glucose Carboxyhemoglobin Sodium Potassium Chloride BUN Creatinine Glucose POC Glucose 243 H 229 H 169 H Phosphorus Ferritin AST ALT Lactate Dehydrogenase Total Creatine Kinase CK-MB (CK-2) Troponin T C-Reactive Protein Total Protein Albumin Triglycerides HDL Cholesterol PTH Intact Arterial Blood Glucose Arterial Blood Ionized Calcium Urine WBC (Auto) Urine Creatinine Coronavirus (PCR) 10/03/20 10/04/20 10/04/20 23:09 03:26 04:58 WBC RBC Hgb Hct MCV MCH Seg Neuts % (Manual) Lymphocytes % (Manual) Monocytes % (Manual) Nucleated RBC % Seg Neutrophils # Man Lymphocytes # (Manual) Monocytes # (Manual) PT INR Thrombin Time D-Dimer Heparin Anti-Xa Level ABG pH POC ABG pO2 77.8 L ABG Oxyhemoglobin ABG Sodium ABG Potassium ABG Chloride ABG Glucose Carboxyhemoglobin 0.1 L Sodium Potassium Chloride 97.1 L BUN 112 H Creatinine 8.2 H Glucose 70 L POC Glucose 150 H Phosphorus 8.10 H Ferritin AST 50 H ALT 66 H Lactate Dehydrogenase Total Creatine Kinase 983 H CK-MB (CK-2) Troponin T C-Reactive Protein Total Protein Albumin 2.6 L Triglycerides HDL Cholesterol PTH Intact Arterial Blood Glucose Arterial Blood Ionized Calcium 4.5 L Urine WBC (Auto) Urine Creatinine Coronavirus (PCR) 10/04/20 10/04/20 10/04/20 04:58 04:58 09:59 WBC 15.7 H RBC Hgb Hct MCV 82 L MCH Seg Neuts % (Manual) Lymphocytes % (Manual) Monocytes % (Manual) Nucleated RBC % Seg Neutrophils # Man Lymphocytes # (Manual) Monocytes # (Manual) PT INR Thrombin Time D-Dimer 2287.60 H Heparin Anti-Xa Level ABG pH POC ABG pO2 ABG Oxyhemoglobin ABG Sodium ABG Potassium ABG Chloride ABG Glucose Carboxyhemoglobin Sodium Potassium Chloride BUN Creatinine Glucose POC Glucose Phosphorus Ferritin AST ALT Lactate Dehydrogenase Total Creatine Kinase CK-MB (CK-2) Troponin T C-Reactive Protein Total Protein Albumin Triglycerides HDL Cholesterol PTH Intact 140.3 H Arterial Blood Glucose Arterial Blood Ionized Calcium Urine WBC (Auto) Urine Creatinine Coronavirus (PCR) 10/04/20 10/04/20 10/04/20 09:59 09:59 11:35 WBC RBC Hgb Hct MCV MCH Seg Neuts % (Manual) Lymphocytes % (Manual) Monocytes % (Manual) Nucleated RBC % Seg Neutrophils # Man Lymphocytes # (Manual) Monocytes # (Manual) PT INR Thrombin Time D-Dimer Heparin Anti-Xa Level ABG pH POC ABG pO2 ABG Oxyhemoglobin ABG Sodium ABG Potassium ABG Chloride ABG Glucose Carboxyhemoglobin Sodium Potassium Chloride BUN Creatinine Glucose POC Glucose 126 H Phosphorus Ferritin > 2000.0 H AST ALT Lactate Dehydrogenase 735 H Total Creatine Kinase CK-MB (CK-2) Troponin T C-Reactive Protein 16.40 H Total Protein Albumin Triglycerides HDL Cholesterol PTH Intact Arterial Blood Glucose Arterial Blood Ionized Calcium Urine WBC (Auto) Urine Creatinine Coronavirus (PCR) 10/04/20 10/04/20 10/04/20 14:16 17:17 21:39 WBC RBC Hgb 11.6 L Hct 35.2 L MCV MCH Seg Neuts % (Manual) Lymphocytes % (Manual) Monocytes % (Manual) Nucleated RBC % Seg Neutrophils # Man Lymphocytes # (Manual) Monocytes # (Manual) PT INR Thrombin Time D-Dimer Heparin Anti-Xa Level ABG pH POC ABG pO2 ABG Oxyhemoglobin ABG Sodium ABG Potassium ABG Chloride ABG Glucose Carboxyhemoglobin Sodium Potassium Chloride BUN Creatinine Glucose POC Glucose 178 H 160 H Phosphorus Ferritin AST ALT Lactate Dehydrogenase Total Creatine Kinase CK-MB (CK-2) Troponin T C-Reactive Protein Total Protein Albumin Triglycerides HDL Cholesterol PTH Intact Arterial Blood Glucose Arterial Blood Ionized Calcium Urine WBC (Auto) Urine Creatinine Coronavirus (PCR) 10/05/20 10/05/20 10/05/20 00:13 03:13 05:04 WBC RBC Hgb Hct MCV MCH Seg Neuts % (Manual) Lymphocytes % (Manual) Monocytes % (Manual) Nucleated RBC % Seg Neutrophils # Man Lymphocytes # (Manual) Monocytes # (Manual) PT INR Thrombin Time D-Dimer Heparin Anti-Xa Level ABG pH POC ABG pO2 ABG Oxyhemoglobin ABG Sodium ABG Potassium ABG Chloride ABG Glucose 119 H Carboxyhemoglobin 0.3 L Sodium Potassium Chloride BUN 90 H Creatinine 5.9 H Glucose 107 H POC Glucose 141 H Phosphorus Ferritin AST ALT Lactate Dehydrogenase Total Creatine Kinase 482 H CK-MB (CK-2) Troponin T C-Reactive Protein Total Protein Albumin Triglycerides HDL Cholesterol PTH Intact Arterial Blood Glucose 119 H Arterial Blood Ionized Calcium 4.4 L Urine WBC (Auto) Urine Creatinine Coronavirus (PCR) 10/05/20 10/05/20 10/05/20 11:33 18:04 21:10 WBC RBC Hgb Hct MCV MCH Seg Neuts % (Manual) Lymphocytes % (Manual) Monocytes % (Manual) Nucleated RBC % Seg Neutrophils # Man Lymphocytes # (Manual) Monocytes # (Manual) PT INR Thrombin Time D-Dimer Heparin Anti-Xa Level ABG pH POC ABG pO2 ABG Oxyhemoglobin ABG Sodium ABG Potassium ABG Chloride ABG Glucose Carboxyhemoglobin Sodium Potassium Chloride BUN Creatinine Glucose POC Glucose 136 H 185 H 162 H Phosphorus Ferritin AST ALT Lactate Dehydrogenase Total Creatine Kinase CK-MB (CK-2) Troponin T C-Reactive Protein Total Protein Albumin Triglycerides HDL Cholesterol PTH Intact Arterial Blood Glucose Arterial Blood Ionized Calcium Urine WBC (Auto) Urine Creatinine Coronavirus (PCR) 10/06/20 10/06/20 10/06/20 02:09 02:09 02:09 WBC 16.3 H RBC Hgb 11.3 L Hct 34.7 L MCV 83 L MCH 27 L Seg Neuts % (Manual) Lymphocytes % (Manual) Monocytes % (Manual) Nucleated RBC % Seg Neutrophils # Man Lymphocytes # (Manual) Monocytes # (Manual) PT INR Thrombin Time D-Dimer Heparin Anti-Xa Level ABG pH POC ABG pO2 ABG Oxyhemoglobin ABG Sodium ABG Potassium ABG Chloride ABG Glucose Carboxyhemoglobin Sodium Potassium Chloride BUN 107 H Creatinine 6.6 H Glucose 175 H POC Glucose Phosphorus Ferritin AST 52 H ALT Lactate Dehydrogenase 802 H Total Creatine Kinase CK-MB (CK-2) Troponin T C-Reactive Protein 27.00 H Total Protein 5.2 L Albumin 2.3 L Triglycerides HDL Cholesterol PTH Intact Arterial Blood Glucose Arterial Blood Ionized Calcium Urine WBC (Auto) Urine Creatinine Coronavirus (PCR) 10/06/20 10/06/20 10/06/20 02:09 02:37 05:12 WBC RBC Hgb Hct MCV MCH Seg Neuts % (Manual) Lymphocytes % (Manual) Monocytes % (Manual) Nucleated RBC % Seg Neutrophils # Man Lymphocytes # (Manual) Monocytes # (Manual) PT INR Thrombin Time D-Dimer Heparin Anti-Xa Level ABG pH POC ABG pO2 75.5 L ABG Oxyhemoglobin 93.3 L ABG Sodium ABG Potassium ABG Chloride ABG Glucose 165 H Carboxyhemoglobin 0.1 L Sodium Potassium Chloride BUN Creatinine Glucose POC Glucose 142 H Phosphorus Ferritin AST ALT Lactate Dehydrogenase Total Creatine Kinase CK-MB (CK-2) Troponin T C-Reactive Protein Total Protein Albumin Triglycerides 392 H HDL Cholesterol PTH Intact Arterial Blood Glucose 165 H Arterial Blood Ionized Calcium Urine WBC (Auto) Urine Creatinine Coronavirus (PCR) 10/06/20 10/06/20 10/06/20 06:53 10:38 11:22 WBC RBC Hgb Hct MCV MCH Seg Neuts % (Manual) Lymphocytes % (Manual) Monocytes % (Manual) Nucleated RBC % Seg Neutrophils # Man Lymphocytes # (Manual) Monocytes # (Manual) PT INR Thrombin Time D-Dimer 2754.80 H Heparin Anti-Xa Level ABG pH POC ABG pO2 ABG Oxyhemoglobin ABG Sodium ABG Potassium ABG Chloride ABG Glucose Carboxyhemoglobin Sodium Potassium Chloride BUN Creatinine Glucose POC Glucose 166 H Phosphorus Ferritin > 2000.0 H AST ALT Lactate Dehydrogenase Total Creatine Kinase CK-MB (CK-2) Troponin T C-Reactive Protein Total Protein Albumin Triglycerides HDL Cholesterol PTH Intact Arterial Blood Glucose Arterial Blood Ionized Calcium Urine WBC (Auto) Urine Creatinine Coronavirus (PCR) 10/06/20 10/06/20 10/07/20 17:52 23:58 05:29 WBC RBC Hgb Hct MCV MCH Seg Neuts % (Manual) Lymphocytes % (Manual) Monocytes % (Manual) Nucleated RBC % Seg Neutrophils # Man Lymphocytes # (Manual) Monocytes # (Manual) PT INR Thrombin Time D-Dimer Heparin Anti-Xa Level ABG pH POC ABG pO2 ABG Oxyhemoglobin ABG Sodium ABG Potassium ABG Chloride ABG Glucose Carboxyhemoglobin Sodium Potassium Chloride BUN Creatinine Glucose POC Glucose 221 H 228 H 147 H Phosphorus Ferritin AST ALT Lactate Dehydrogenase Total Creatine Kinase CK-MB (CK-2) Troponin T C-Reactive Protein Total Protein Albumin Triglycerides HDL Cholesterol PTH Intact Arterial Blood Glucose Arterial Blood Ionized Calcium Urine WBC (Auto) Urine Creatinine Coronavirus (PCR) 10/07/20 10/07/20 10/07/20 06:00 06:00 06:00 WBC 16.2 H RBC Hgb 11.0 L Hct 34.7 L MCV 82 L MCH 26 L Seg Neuts % (Manual) Lymphocytes % (Manual) Monocytes % (Manual) Nucleated RBC % Seg Neutrophils # Man Lymphocytes # (Manual) Monocytes # (Manual) PT INR Thrombin Time D-Dimer Heparin Anti-Xa Level 0.26 L ABG pH POC ABG pO2 ABG Oxyhemoglobin ABG Sodium ABG Potassium ABG Chloride ABG Glucose Carboxyhemoglobin Sodium Potassium Chloride 97.3 L BUN 77 H Creatinine 5.7 H Glucose 151 H POC Glucose Phosphorus Ferritin AST ALT Lactate Dehydrogenase Total Creatine Kinase 473 H CK-MB (CK-2) Troponin T C-Reactive Protein Total Protein Albumin Triglycerides HDL Cholesterol PTH Intact Arterial Blood Glucose Arterial Blood Ionized Calcium Urine WBC (Auto) Urine Creatinine Coronavirus (PCR) 10/07/20 10/07/20 10/07/20 13:14 13:58 17:17 WBC RBC Hgb Hct MCV MCH Seg Neuts % (Manual) Lymphocytes % (Manual) Monocytes % (Manual) Nucleated RBC % Seg Neutrophils # Man Lymphocytes # (Manual) Monocytes # (Manual) PT INR Thrombin Time D-Dimer Heparin Anti-Xa Level ABG pH 7.305 L 7.313 L POC ABG pO2 49.7 L 45.8 L ABG Oxyhemoglobin 80.5 L 76.6 L ABG Sodium 133.3 L 131.4 L ABG Potassium 4.6 H ABG Chloride ABG Glucose 125 H 158 H Carboxyhemoglobin Sodium Potassium Chloride BUN Creatinine Glucose POC Glucose 132 H Phosphorus Ferritin AST ALT Lactate Dehydrogenase Total Creatine Kinase CK-MB (CK-2) Troponin T C-Reactive Protein Total Protein Albumin Triglycerides HDL Cholesterol PTH Intact Arterial Blood Glucose 125 H 158 H Arterial Blood Ionized Calcium 4.5 L 4.5 L Urine WBC (Auto) Urine Creatinine Coronavirus (PCR) 10/07/20 10/07/20 10/08/20 17:40 23:11 04:00 WBC RBC Hgb Hct MCV MCH Seg Neuts % (Manual) Lymphocytes % (Manual) Monocytes % (Manual) Nucleated RBC % Seg Neutrophils # Man Lymphocytes # (Manual) Monocytes # (Manual) PT INR Thrombin Time D-Dimer Heparin Anti-Xa Level ABG pH POC ABG pO2 46.9 L ABG Oxyhemoglobin 77.7 L ABG Sodium 134.1 L ABG Potassium 4.6 H ABG Chloride ABG Glucose 120 H Carboxyhemoglobin Sodium Potassium Chloride BUN Creatinine Glucose POC Glucose 152 H 108 H Phosphorus Ferritin AST ALT Lactate Dehydrogenase Total Creatine Kinase CK-MB (CK-2) Troponin T C-Reactive Protein Total Protein Albumin Triglycerides HDL Cholesterol PTH Intact Arterial Blood Glucose 120 H Arterial Blood Ionized Calcium 4.3 L Urine WBC (Auto) Urine Creatinine Coronavirus (PCR) 10/08/20 10/08/20 10/08/20 04:20 04:20 04:20 WBC 17.1 H RBC Hgb 11.7 L Hct MCV 82 L MCH 26 L Seg Neuts % (Manual) Lymphocytes % (Manual) Monocytes % (Manual) Nucleated RBC % Seg Neutrophils # Man Lymphocytes # (Manual) Monocytes # (Manual) PT INR Thrombin Time D-Dimer 4280.35 H Heparin Anti-Xa Level 0.14 L ABG pH POC ABG pO2 ABG Oxyhemoglobin ABG Sodium ABG Potassium ABG Chloride ABG Glucose Carboxyhemoglobin Sodium Potassium 5.1 H D Chloride 94.8 L BUN 103 H Creatinine 7.3 H Glucose 107 H POC Glucose Phosphorus Ferritin AST ALT Lactate Dehydrogenase 786 H Total Creatine Kinase CK-MB (CK-2) Troponin T C-Reactive Protein 28.70 H Total Protein Albumin Triglycerides HDL Cholesterol PTH Intact Arterial Blood Glucose Arterial Blood Ionized Calcium Urine WBC (Auto) Urine Creatinine Coronavirus (PCR) Chest x-ray: image reviewed (persistent bilateral infiltrates without pleural effusions) Allied health notes reviewed: nursing
[2020-10-08] MEDS ORDERED: MAGNESIUM CITRATE 300 ML ORAL LIQD PO ONE (15:00)
--- NOTE | 2020-10-08 15:10 | XRay Report ---
CHEST 1 VIEW INDICATION: follow up respiratory failure. COMPARISON: 10/07/2010 FINDINGS: Support devices: Right IJ venous catheter and endotracheal tube remain in adequate position. Nasogast chau tube transverses the esophagus. Heart: Within normal limits. Lungs/Pleura: Given differences in technique, bilateral lung infiltrates appear stable. No pneumothor ax. Additional findings: None. IMPRESSION: No significant change. ABDOMEN 1 VIEW(S) INDICATION / CLINICAL INFORMATION: Rule out small bowel obstruction. COMPARISON: 10/04/2020 FINDINGS: TUBES / LINES: Nasogastric tube terminates in the descending duodenum. BOWEL GAS PATTERN: No significant abnormality. FREE AIR / EXTRALUMINAL GAS: None seen. ADDITIONAL FINDINGS: No significant additional findings. IMPRESSION: No significant abnormality. No evidence for obstruction. Signer Name: Ian Tan Jr, MD Signed: 10/08/2020 3:06 PM Workstation Name: [id number]
--- NOTE | 2020-10-08 16:43 | Progress Note ---
Assessment and Plan Cultures: Blood culture no growth so far Covid PCR: Positive A/P: 50-year-old man past medical history of hypertension, diabetes admitted as COVID #COVID pneumonia: with bilateral pneumonia. Was also found to be covered in vomitus, as such concern for aspiration pneumonia. #Acute hypoxic respiratory failure: Currently vent. Secondary to pneumonia #Diabetes: tight glycemic control for best outcomes. #OLIVIA: Renally dose antibiotics. on HD,. Recs: -Continue steroids per pulmonary to complete 10 days. -Procalcitonin likely be falsely elevated in setting of renal failure; complete 5 days of ceftriaxone and azithromycin. -given Actemra 10/08/2020 -Not a candidate for remdesivir due to renal failure. Thank you for the consult, we will continue to follow. Malgorzata Milligan MD [facility] ([facility]) O: [phone] F: [phone] Subjective Date of service: 10/08/20 Principal diagnosis: Ac hypoxemic resp; COVID-19; Pneumonia; OLIVIA; Ac en cephalopathy; NSTEMI Interval history: Remains febrile to 100.7 with a white count 17.1. Imaging personally reviewed: Chest x-ray: Stable bilateral lung infiltrates Objective - Exam Narrative Exam: Physical exam deferred to reduce risk of transmission of COVID-19. Please refer to primary team's note. - Constitutional Vitals: Vital Signs Temp Pulse Resp BP Pulse Ox 99.7 F H 76 20 97/71 91 10/08/20 14:00 10/08/20 16:30 10/08/20 16:11 10/08/20 16:30 10/08/20 16:11 Temperature -Last 24 Hours Temperature 99.7 F Temperature 100.7 F Temperature 100.4 F - Labs CBC & Chem 7: 10/08/20 04:20 10/08/20 04:20 Labs: Abnormal lab results 10/07/20 10/07/20 10/07/20 Range/Units 17:17 17:40 23:11 WBC (4.5-11.0) K/mm3 Hgb (11.8-15.2) gm/dl MCV (84-94) fl MCH (28-32) pg D-Dimer (0-234) ng/mlDDU Heparin Anti-Xa Level (0.3-0.7) U.I./ml ABG pH 7.313 L (7.320-7.450) POC ABG pO2 45.8 L (83-108) mmHg ABG Hemoglobin (12.0-17.5) ABG Oxyhemoglobin 76.6 L (94-98) ABG Sodium 131.4 L (136.0-145.0) mmol/L ABG Potassium (3.40-4.50) mmol/L ABG Glucose 158 H (65-95) mg/dL Potassium (3.6-5.0) mmol/L Chloride (98-107) mmol/L BUN (9-20) mg/dL Creatinine (0.8-1.3) mg/dL Glucose (75-100) mg/dL POC Glucose 152 H 108 H (70-105) mg/dL Lactate Dehydrogenase (91-180) units/L C-Reactive Protein (0.00-1.30) mg/dL Arterial Blood Glucose 158 H (65-95) mg/dL Arterial Blood Ionized Calcium 4.5 L (4.6-5.3) mg/dL 10/08/20 10/08/20 10/08/20 Range/Units 04:00 04:20 04:20 WBC 17.1 H (4.5-11.0) K/mm3 Hgb 11.7 L (11.8-15.2) gm/dl MCV 82 L (84-94) fl MCH 26 L (28-32) pg D-Dimer (0-234) ng/mlDDU Heparin Anti-Xa Level (0.3-0.7) U.I./ml ABG pH (7.320-7.450) POC ABG pO2 46.9 L (83-108) mmHg ABG Hemoglobin (12.0-17.5) ABG Oxyhemoglobin 77.7 L (94-98) ABG Sodium 134.1 L (136.0-145.0) mmol/L ABG Potassium 4.6 H (3.40-4.50) mmol/L ABG Glucose 120 H (65-95) mg/dL Potassium 5.1 H D (3.6-5.0) mmol/L Chloride 94.8 L (98-107) mmol/L BUN 103 H (9-20) mg/dL Creatinine 7.3 H (0.8-1.3) mg/dL Glucose 107 H (75-100) mg/dL POC Glucose (70-105) mg/dL Lactate Dehydrogenase 786 H (91-180) units/L C-Reactive Protein 28.70 H (0.00-1.30) mg/dL Arterial Blood Glucose 120 H (65-95) mg/dL Arterial Blood Ionized Calcium 4.3 L (4.6-5.3) mg/dL 10/08/20 10/08/20 10/08/20 Range/Units 04:20 12:19 14:12 WBC (4.5-11.0) K/mm3 Hgb (11.8-15.2) gm/dl MCV (84-94) fl MCH (28-32) pg D-Dimer 4280.35 H (0-234) ng/mlDDU Heparin Anti-Xa Level 0.14 L (0.3-0.7) U.I./ml ABG pH 7.293 L (7.320-7.450) POC ABG pO2 48.4 L (83-108) mmHg ABG Hemoglobin 11.7 L (12.0-17.5) ABG Oxyhemoglobin 77.4 L (94-98) ABG Sodium 131.4 L (136.0-145.0) mmol/L ABG Potassium 4.8 H (3.40-4.50) mmol/L ABG Glucose 184 H (65-95) mg/dL Potassium (3.6-5.0) mmol/L Chloride (98-107) mmol/L BUN (9-20) mg/dL Creatinine (0.8-1.3) mg/dL Glucose (75-100) mg/dL POC Glucose 169 H (70-105) mg/dL Lactate Dehydrogenase (91-180) units/L C-Reactive Protein (0.00-1.30) mg/dL Arterial Blood Glucose 184 H (65-95) mg/dL Arterial Blood Ionized Calcium 4.5 L (4.6-5.3) mg/dL
[2020-10-08] MEDS: INSULIN GLARGINE 100 UNITS/ML SUB-Q SCH (22:41)
[2020-10-08] MEDS: POLYETHYLENE GLYCOL 3350 17 GM POWDER PO SCH (22:42)
[2020-10-08] MEDS: HEPARIN/ 0.45% NACL DRIP 25,000 UNIT/500 ML BAG IV SCH (23:01)
[2020-10-09] MEDS: INSULIN LISPRO 100 UNIT/ML SUB-Q SCH ×4 (01:51→18:11)
[2020-10-09] MEDS: fentaNYL DRIP Premix 2,000 MCG/100 ML BAG IV SCH ×3 (05:07→16:41)
[2020-10-09] MEDS: MIDAZOLAM 100 MG in SODIUM CHLORIDE 0.9% 80 ML IV SCH (05:16)
[2020-10-09 07:32] LABS: Hematocrit 36.8 % (35.5-45.6); Hemoglobin 12.2 gm/dl (11.8-15.2); Mean Corpuscular HGB Conc 33 % (32-34); Mean Corpuscular Volume 82 fl (84-94); Platelet Count 246 K/mm3 (140-440); Red Blood Count 4.47 M/mm3 (3.65-5.03); Red Cell Distribution Width 14.7 % (13.2-15.2)
[2020-10-09] MEDS: GLYCOPYRROLATE 1 MG TAB PO SCH ×3 (08:31→20:15)
[2020-10-09] MEDS: dexAMETHasone 4 MG/ML VIAL IV SCH (08:31)
--- NOTE | 2020-10-09 09:30 | Progress Note ---
Assessment and Plan 1. Acute kidney injury: OLIVIA in the setting of severe Covid infection. Received IV contrast 10/02. FeNa low. Renal US negative for hydro. Monitor renal function. BUN and Creatinine level remains high. Avoid nephrotoxic agents. Meds dosage based on GFR. Monitor for [employer] needs. Patient was started on hemodialysis due to worsening renal function. Hemodialysis: 10/04, 10/06, 10/08. HD today. 2. FEN: Hyperkalemia, meds ordered, Hd today, monitor. Monitor lytes and volume status. 3. Acute respiratory failure with hypoxemia: 2/2 Covid PNA. On vent, wean as tolerated. 4. Covid PNA: Followed by ID. 5. Acute encephalopathy, POA: Multifactorial. R/O Seizure. CT brain remarkable for left frontal hypodensity. EEG suggestive of encephalopathy. R/O CVA. 6. Rhabdomyolysis: Trend CK, improving. 7. Elevated ALT & AST: Trend. 8. DM type 2: Monitor. Subjective: Patient was seen and examined at the bedside. D/w ICU PA. Examination: General appearance: well-developed, appears stated age, intubated on vent, proned, FiO2 100%, PEEP 20 HEENT: atraumatic Neck: proned Respiratory: MV sounds Heart: S1S2 Abdomen: proned Integumentary: no obvious rash Neurologic: not responding Ext: no edema : Blanchard catheter Hemodialysis access: R IJ temp catheter Subjective Date of service: 10/09/20 Principal diagnosis: Ac hypoxemic resp; COVID-19; Pneumonia; OLIVIA; Ac encephalopathy; NSTEMI Objective - Vital Signs Vital signs: Vital Signs - 12hr 10/08/20 10/08/20 10/08/20 21:41 21:51 22:00 Temperature Pulse Rate 88 87 Pulse Rate [ From Monitor] Respiratory 22 22 Rate Blood Pressure 105/67 105/66 107/70 O2 Sat by Pulse 86 86 86 Oximetry 10/08/20 10/08/20 10/08/20 22:11 22:21 22:30 Temperature Pulse Rate 108 H 105 H 103 H Pulse Rate [ From Monitor] Respiratory 27 H 26 H 27 H Rate Blood Pressure 107/70 133/88 129/79 O2 Sat by Pulse 77 L 79 L 72 L Oximetry 10/08/20 10/08/20 10/08/20 22:41 22:51 23:00 Temperature Pulse Rate 99 H 103 H 98 H Pulse Rate [ From Monitor] Respiratory 25 H 26 H 26 H Rate Blood Pressure 107/70 129/77 121/78 O2 Sat by Pulse 76 L 75 L 76 L Oximetry 10/08/20 10/08/20 10/08/20 23:11 23:21 23:30 Temperature Pulse Rate 101 H 102 H 98 H Pulse Rate [ From Monitor] Respiratory 26 H 27 H 28 H Rate Blood Pressure 133/88 126/80 127/80 O2 Sat by Pulse 75 L 75 L 74 L Oximetry 10/08/20 10/08/20 10/09/20 23:41 23:51 00:00 Temperature 100.9 F H Pulse Rate 107 H 108 H 79 Pulse Rate [ 107 H From Monitor] Respiratory 29 H 30 H 28 H Rate Blood Pressure 127/80 123/87 137/85 O2 Sat by Pulse 71 L 72 L 86 Oximetry 10/09/20 10/09/20 10/09/20 00:11 00:21 00:30 Temperature Pulse Rate 108 H 107 H 109 H Pulse Rate [ From Monitor] Respiratory 27 H 27 H 22 Rate Blood Pressure 137/85 144/82 119/76 O2 Sat by Pulse 72 L 75 L 89 Oximetry 10/09/20 10/09/20 10/09/20 00:41 00:51 01:00 Temperature Pulse Rate 108 H 106 H 103 H Pulse Rate [ From Monitor] Respiratory 24 24 24 Rate Blood Pressure 144/82 120/76 130/76 O2 Sat by Pulse 85 84 85 Oximetry 10/09/20 10/09/20 10/09/20 01:11 01:21 01:30 Temperature Pulse Rate 105 H 103 H 100 H Pulse Rate [ From Monitor] Respiratory 23 23 23 Rate Blood Pressure 119/76 115/76 132/69 O2 Sat by Pulse 84 84 84 Oximetry 10/09/20 10/09/20 10/09/20 01:41 01:51 02:00 Temperature Pulse Rate 100 H 99 H 100 H Pulse Rate [ From Monitor] Respiratory 23 22 24 Rate Blood Pressure 132/69 129/75 123/67 O2 Sat by Pulse 83 L 83 L 72 L Oximetry 10/09/20 10/09/20 10/09/20 02:11 02:21 02:30 Temperature Pulse Rate 94 H 90 88 Pulse Rate [ From Monitor] Respiratory 24 23 24 Rate Blood Pressure 123/67 117/64 112/64 O2 Sat by Pulse 77 L 77 L 77 L Oximetry 10/09/20 10/09/20 10/09/20 02:41 02:51 03:00 Temperature Pulse Rate 88 91 H 95 H Pulse Rate [ From Monitor] Respiratory 24 25 H 26 H Rate Blood Pressure 112/64 119/67 114/72 O2 Sat by Pulse 77 L 77 L 76 L Oximetry 10/09/20 10/09/20 10/09/20 03:11 03:21 03:30 Temperature Pulse Rate 100 H 102 H 102 H Pulse Rate [ From Monitor] Respiratory 26 H 25 H 26 H Rate Blood Pressure 114/72 108/69 109/76 O2 Sat by Pulse 75 L 75 L 75 L Oximetry 10/09/20 10/09/20 10/09/20 03:34 03:41 03:51 Temperature 100.9 F H Pulse Rate 97 H 109 H Pulse Rate [ From Monitor] Respiratory 25 H 22 Rate Blood Pressure 108/69 105/81 O2 Sat by Pulse 74 L 70 L Oximetry 10/09/20 10/09/20 10/09/20 04:00 04:11 04:21 Temperature Pulse Rate 98 H 94 H 94 H Pulse Rate [ 94 H From Monitor] Respiratory 26 H 25 H 26 H Rate Blood Pressure 91/73 91/73 101/80 O2 Sat by Pulse 80 L 75 L 75 L Oximetry 10/09/20 10/09/20 10/09/20 04:31 04:41 04:51 Temperature Pulse Rate 96 H 102 H 98 H Pulse Rate [ From Monitor] Respiratory 25 H 25 H 25 H Rate Blood Pressure 107/71 101/80 111/75 O2 Sat by Pulse 75 L 75 L 75 L Oximetry 10/09/20 10/09/20 10/09/20 05:01 05:11 05:21 Temperature Pulse Rate 97 H 97 H 107 H Pulse Rate [ From Monitor] Respiratory 24 25 H 27 H Rate Blood Pressure 109/76 111/75 107/62 O2 Sat by Pulse 74 L 75 L 86 Oximetry 10/09/20 10/09/20 10/09/20 05:30 05:41 05:51 Temperature Pulse Rate 97 H 94 H 100 H Pulse Rate [ From Monitor] Respiratory 25 H 26 H 25 H Rate Blood Pressure 121/70 107/62 122/75 O2 Sat by Pulse 80 L 77 L 75 L Oximetry 10/09/20 10/09/20 10/09/20 06:00 06:11 06:21 Temperature Pulse Rate 98 H 100 H 99 H Pulse Rate [ From Monitor] Respiratory 25 H 25 H 25 H Rate Blood Pressure 124/77 124/77 130/76 O2 Sat by Pulse 76 L 76 L 77 L Oximetry 10/09/20 10/09/20 10/09/20 06:30 06:41 06:51 Temperature Pulse Rate 96 H 97 H 92 H Pulse Rate [ From Monitor] Respiratory 24 24 24 Rate Blood Pressure 112/75 112/75 114/75 O2 Sat by Pulse 78 L 78 L 78 L Oximetry 10/09/20 10/09/20 10/09/20 07:00 07:10 07:11 Temperature 100.9 F H Pulse Rate 94 H 95 H Pulse Rate [ From Monitor] Respiratory 24 24 Rate Blood Pressure 107/71 107/71 O2 Sat by Pulse 78 L 78 L Oximetry 10/09/20 10/09/20 10/09/20 07:21 07:30 07:41 Temperature Pulse Rate 88 93 H 91 H Pulse Rate [ From Monitor] Respiratory 25 H 24 23 Rate Blood Pressure 117/77 119/73 119/73 O2 Sat by Pulse 79 L 79 L 79 L Oximetry 10/09/20 10/09/20 10/09/20 07:51 08:00 08:11 Temperature 100.6 F H Pulse Rate 92 H 92 H 88 Pulse Rate [ From Monitor] Respiratory 23 22 23 Rate Blood Pressure 118/70 113/74 113/74 O2 Sat by Pulse 79 L 79 L 80 L Oximetry 10/09/20 10/09/20 10/09/20 08:14 08:21 08:29 Temperature Pulse Rate 91 H 92 H Pulse Rate [ 92 H From Monitor] Respiratory 22 22 Rate Blood Pressure 113/74 121/75 O2 Sat by Pulse 80 L 81 L 81 L Oximetry - Lab 10/09/20 07:15 10/09/20 07:15 Most recent lab results ABG pH 7.365 (7.320-7.450) 10/09/20 04:00 ABG O2 Saturation 65.3 (0-100) 10/09/20 04:00 Calcium 9.0 mg/dL (8.4-10.2) 10/09/20 07:15 Phosphorus 8.10 mg/dL (2.5-4.5) H 10/04/20 04:58 Urine Creatinine 156.1 mg/dL (0.1-20.0) H 10/03/20 06:30 Urine Sodium 22 mmol/L 10/03/20 06:30 Medications & Allergies - Medications Allergies/Adverse Reactions: Allergies No Known Allergies Allergy (Verified 10/02/20 01:44) Active Medications: Generic Name Dose Route Start Last Admin Trade Name Freq PRN Reason Stop Dose Admin Acetaminophen 650 mg 10/02/20 05:23 10/07/20 21:42 Acetaminophen 325 Mg Tab PO 650 mg Q6H PRN Administration Pain MILD(1-3)/Fever >100.5/[place] Lipase/Protease/Amylase 1 each 10/04/20 12:06 Lipase 10,500/Protease 25,000/Amylase 43,750 (Units) Dr Cap FEEDTUBE PRN PRN For Clogged Feeding Tube Ascorbic Acid 1,000 mg 10/06/20 22:00 10/08/20 22:55 Ascorbic Acid 500 Mg Tab PO 1,000 mg BID MUSTAPHA Administration Bisacodyl 10 mg 10/02/20 05:23 Bisacodyl 10 Mg Rect Supp NC QDAY PRN Constipation Cholecalciferol 1,000 unit 10/08/20 10:00 10/08/20 10:21 Cholecalciferol (Vit D3) 1000 Unit (25 Mcg) Tab PO 1,000 unit DAILY MUSTAPHA Administration Dexamethasone 6 mg 10/03/20 04:00 10/09/20 08:31 Dexamethasone 4 Mg/Ml Vial IV 10/12/20 04:01 6 mg Q24H MUSTAPHA Administration Dextrose 50 ml 10/02/20 06:44 Dextrose 50% In Water (25gm) 50 Ml Syringe IV Q30MIN PRN Hypoglycemia Protocol Dextrose 50 ml 10/09/20 09:29 Dextrose 50% In Water (25gm) 50 Ml Syringe IV 10/09/20 09:30 ONCE ONE Protocol Famotidine 20 mg 10/07/20 10:00 10/08/20 10:22 Famotidine 20 Mg Tab PO 20 mg DAILY MUSTAPHA Administration Fentanyl 50 mcg 10/02/20 00:53 Fentanyl 100 Mcg/2 Ml Inj IV Q10MIN PRN ANALGESIA Glycopyrrolate 1 mg 10/06/20 14:00 10/09/20 08:31 Glycopyrrolate 1 Mg Tab PO 1 mg TID MUSTAPHA Administration Heparin Sodium (Porcine) 2,000 unit 10/04/20 12:18 Heparin 10,000 Units/10 Ml Vial IV RADHA PRN hemodialysis Heparin Sodium (Porcine) 3,400 unit 10/04/20 12:51 Heparin 10,000 Units/10 Ml Vial 40 unit/kg (3400 unit) IV Q6H PRN Anti-Xa Assay < 0.1 units/ml Hydrophilic Ointment 1 applic 10/02/20 00:53 Lip Therapy Vaseline TP Q2HR PRN Dry Lips Fentanyl Citrate 2,000 mcg in 100 mls @ 4.2 mls/hr 10/02/20 01:00 10/09/20 05:07 Fentanyl Drip Premix IV 4 mcg/kg/hr TITR MUSTAPHA 16.8 mls/hr Administration Protocol 1 MCG/KG/HR Propofol 1,000 mg in 100 mls @ 2.52 mls/hr 10/02/20 03:00 10/09/20 05:08 Diprivan 10 Mg/Ml IV 25 mcg/kg/min TITR MUSTAPHA 12.6 mls/hr Administration Protocol 5 MCG/KG/MIN Sodium Chloride 100 mls @ 999 mls/hr 10/04/20 12:18 Nacl 0.9% IV RADHA PRN Hypotension Heparin Sodium/Sodium Chloride 25,000 unit in 500 mls @ 20 mls/hr 10/04/20 14:00 10/08/20 23:01 Heparin/ 0.45% Nacl-25,000 Unit/500 Ml IV 900 units/hr TITRATE MUSTPAHA 18 mls/hr Administration Protocol 1,000 UNITS/HR Midazolam HCl 100 mg/ Sodium 100 mls @ 1 mls/hr 10/07/20 15:00 10/09/20 05:16 Chloride IV 5 mg/hr TITR MUSTAPHA 5 mls/hr Administration Protocol 1 MG/HR Insulin Glargine 25 units 10/09/20 22:00 Insulin Glargine 100 Units/Ml SUB-Q QHS [facility] Insulin Human Lispro 0 unit 10/02/20 12:00 10/09/20 05:12 Insulin Lispro 100 Unit/Ml SUB-Q 6 unit Q6HR [facility] Administration Protocol Insulin Human Regular 10 units 10/09/20 09:29 Insulin Regular, Human 100 Units/1 Ml IV 10/09/20 09:30 ONCE ONE Magnesium Hydroxide 30 ml 10/02/20 05:23 Magnesium Hydroxide (Mom) Oral Liqd Udc PO Q4H PRN Constipation Metoclopramide HCl 5 mg 10/02/20 05:53 Metoclopramide 10 Mg Tab PO Q6H PRN Nausea And Vomiting Midazolam HCl 2 mg 10/07/20 14:02 Midazolam 2 Mg/2 Ml Inj IV Q10MIN PRN Sedation Multi-Ingred Cream/Lotion/Oil/Oint 1 applic 10/02/20 00:53 Mineral Oil/Petrolatum, White Ophth Oint 3.5 Gm OU Q4HR PRN Dry Eye(s) Ondansetron HCl 4 mg 10/02/20 05:23 Ondansetron 4 Mg/2 Ml Inj IV Q8H PRN Nausea And Vomiting Polyethylene Glycol 17 gm 10/08/20 22:00 10/08/20 22:42 Polyethylene Glycol 3350 17 Gm Powder PO 17 gm QHS MUSTAPHA Administration Promethazine HCl 25 mg 10/02/20 05:23 Promethazine 25 Mg Rect Supp NC Q6H PRN Nausea And Vomiting Scopolamine 1 each 10/06/20 13:00 10/06/20 16:18 Scopolamine Transdermal Patch 72 Hr TD 1 each Q3D MUSTAPHA Administration Senna/Docusate Sodium 1 tab 10/02/20 22:00 10/08/20 22:42 Sennosides/Docusate Sodium 8.6/50 Mg Tab FEEDTUBE 1 tab BID MUSTAPHA Administration Simple Syrup 15 ml 10/04/20 12:06 Simple Syrup 15 Ml FEEDTUBE PRN PRN Hypoglycemia Simple Syrup 30 ml 10/04/20 12:06 Simple Syrup 15 Ml FEEDTUBE PRN PRN Hypoglycemia Sodium Bicarbonate 325 mg 10/04/20 12:06 Sodium Bicarbonate 325 Mg Tab FEEDTUBE PRN PRN For Clogged Feeding Tube Sodium Chloride 10 ml 10/02/20 10:00 10/08/20 11:31 Sodium Chloride 0.9% 10 Ml Flush Syringe IV 10 ml BID MUSTAPHA Administration Sodium Chloride 10 ml 10/02/20 05:23 10/06/20 03:48 Sodium Chloride 0.9% 10 Ml Flush Syringe IV 10 ml PRN PRN Administration LINE FLUSH Zinc Sulfate 220 mg 10/06/20 22:00 08/11/21 22:42 Zinc Sulfate 220 Mg Cap PO 220 mg BID MUSTAPHA Administration
[2020-10-09] MEDS: CHOLECALCIFEROL (VIT D3) 1000 UNIT (25 mcg) TAB PO SCH (09:40)
[2020-10-09] MEDS: SENNOSIDES/DOCUSATE SODIUM 8.6/50 MG TAB FEEDTUBE SCH ×2 (09:40→21:48)
[2020-10-09] MEDS: SCOPOLAMINE TRANSDERMAL PATCH 72 HR TD SCH (09:40)
[2020-10-09] MEDS: FAMOTIDINE 20 MG TAB PO SCH (09:40)
[2020-10-09] MEDS: ZINC SULFATE 220 MG CAP PO SCH ×2 (09:40→21:53)
[2020-10-09] MEDS: ASCORBIC ACID 500 MG TAB PO SCH ×2 (09:40→21:50)
[2020-10-09] MEDS ORDERED: INSULIN REGULAR, HUMAN 100 UNITS/1 ML IV ONE (10:00)
[2020-10-09] MEDS ORDERED: DEXTROSE 50% IN WATER (25GM) 50 ML SYRINGE IV ONE (10:00)
--- NOTE | 2020-10-09 12:37 | Progress Note ---
Assessment and Plan Acute hypoxemic respiratory failure on MVS COVID-19 infection Bilateral pneumonia Acute kidney injury Acute toxic metabolic encephalopathy Rhabdomyolysis Elevated serum inflammatory markers to include the D-dimers as well as ferritin level Non-ST elevation myocardial infarction Oropharyngeal dysphagia - continue proning for 16 hours total - changed to APRV and oxygenation better - repeat ABG after 1 hour - hold Propofol while on APRV - lactulose 30 mls q4h scheduled till has BM (max 48 hrs) - begin Reglan 5m IV bid - get lactate level - continue HD/UF for toxin and volume clearance - 2D ECHO with impaired relaxation - continue care as below otherwise; - continue scopolamine and robinul for copious non-bloody secretions - continue Daily SAT and SBT assessment as tolerated - continue to wean supplemental oxygen for target O2 sat's > 90% acutely - VAP bundle addressed - continue lung protective strategies - continue bronchodilators with pulmonary hygiene per RT - wean per pulmonary driven protocols otherwise - continue accuchecks with glycemic control per SSI (While critically ill target blood glucose of 140-180 mg/dL; avoid hypoglycemia) - sedation prn for target RASS 0 to -1 - avoid nephrotoxins, renally dose all medications - continue to avoid benzodiazepine's, reduce the possibility of delirium - complete AB's per ID rec's - prn analgesia per CPOT score - Maintenance of sleep-wake cycle, avoid delirium - continue enteral nutritional support at goal rate as tolerated - G.I. & VTE prophylaxis - PT/OT/ROM exercises - continue mobility protocols for pressure ulcer prophylaxis - Monitor hemodynamics closely - continue other care per attending / other consultants - discharge planning ongoing concurrently COVID SPECIFIC INTERVENTIONS - To receive Actemra - Remdesivir as per ID/Pulmonary developed protocols (not a candidate) - continue systemic steroids for severe COVID-19 infection empirically - follow repeat COVID tests results - zinc and vitamin C supplementation - Monitor inflammatory markers per facility protocol - ferritin, Ddimer, CRP - therapeutic anticoagulation per system Protocol based on d-dimer and clinical considerations - Continue contact and airborne isolation .... Re-evaluate in am & prn CONDITION: CRITICAL PROGNOSIS: GUARDED CODE STATUS: FULL CODE The high probability of a clinically significant, sudden or life-threatening deterioration of the [respiratory, cardiovascular, renal & neurologic] system(s) required my full and direct attention, intervention and personal management. The aggregate critical care time was [37] minutes without overlap. Time includes spent on; [x] Data Review and interpretation [x] Patient assessment and monitoring of vital signs [x] Documentation [x] Medication orders and management Subjective Date of service: 10/09/20 Principal diagnosis: Ac hypoxemic resp; COVID-19; Pneumonia; OLIVIA; Ac enc ephalopathy; NSTEMI Interval history: Patient is seen today for: Acute hypoxemic respiratory; COVID-19 infection; Pneumonia; OLIVIA; Acute toxic metabolic encephalopathy; NSTEMI Seen and examined at bedside; 24hour events reviewed; nursing and respiratory care staff consulted; no adverse overnight events reported to me; resting in bed; proned; O2 sats remain in the 80's; no emesis or overt aspiration; remains off vasopressors; triglycerides elevated Objective Vital Signs - 12hr 10/09/20 10/09/20 10/09/20 00:41 00:51 01:00 Temperature Pulse Rate 108 H 106 H 103 H Pulse Rate [ From Monitor] Respiratory 24 24 24 Rate Blood Pressure 144/82 120/76 130/76 O2 Sat by Pulse 85 84 85 Oximetry 10/09/20 10/09/20 10/09/20 01:11 01:21 01:30 Temperature Pulse Rate 105 H 103 H 100 H Pulse Rate [ From Monitor] Respiratory 23 23 23 Rate Blood Pressure 119/76 115/76 132/69 O2 Sat by Pulse 84 84 84 Oximetry 10/09/20 10/09/20 10/09/20 01:41 01:51 02:00 Temperature Pulse Rate 100 H 99 H 100 H Pulse Rate [ From Monitor] Respiratory 23 22 24 Rate Blood Pressure 132/69 129/75 123/67 O2 Sat by Pulse 83 L 83 L 72 L Oximetry 10/09/20 10/09/20 10/09/20 02:11 02:21 02:30 Temperature Pulse Rate 94 H 90 88 Pulse Rate [ From Monitor] Respiratory 24 23 24 Rate Blood Pressure 123/67 117/64 112/64 O2 Sat by Pulse 77 L 77 L 77 L Oximetry 10/09/20 10/09/20 10/09/20 02:41 02:51 03:00 Temperature Pulse Rate 88 91 H 95 H Pulse Rate [ From Monitor] Respiratory 24 25 H 26 H Rate Blood Pressure 112/64 119/67 114/72 O2 Sat by Pulse 77 L 77 L 76 L Oximetry 0810/09/20 10/09/20 03:11 03:21 03:30 Temperature Pulse Rate 100 H 102 H 102 H Pulse Rate [ From Monitor] Respiratory 26 H 25 H 26 H Rate Blood Pressure 114/72 108/69 109/76 O2 Sat by Pulse 75 L 75 L 75 L Oximetry 10/09/20 10/09/20 10/09/20 03:34 03:41 03:51 Temperature 100.9 F H Pulse Rate 97 H 109 H Pulse Rate [ From Monitor] Respiratory 25 H 22 Rate Blood Pressure 108/69 105/81 O2 Sat by Pulse 74 L 70 L Oximetry 10/09/20 10/09/20 10/09/20 04:00 04:11 04:21 Temperature Pulse Rate 98 H 94 H 94 H Pulse Rate [ 94 H From Monitor] Respiratory 26 H 25 H 26 H Rate Blood Pressure 91/73 91/73 101/80 O2 Sat by Pulse 80 L 75 L 75 L Oximetry 10/09/20 10/09/20 10/09/20 04:31 04:41 04:51 Temperature Pulse Rate 96 H 102 H 98 H Pulse Rate [ From Monitor] Respiratory 25 H 25 H 25 H Rate Blood Pressure 107/71 101/80 111/75 O2 Sat by Pulse 75 L 75 L 75 L Oximetry 10/09/20 10/09/20 10/09/20 05:01 05:11 05:21 Temperature Pulse Rate 97 H 97 H 107 H Pulse Rate [ From Monitor] Respiratory 24 25 H 27 H Rate Blood Pressure 109/76 111/75 107/62 O2 Sat by Pulse 74 L 75 L 86 Oximetry 10/09/20 10/09/20 10/09/20 05:30 05:41 05:51 Temperature Pulse Rate 97 H 94 H 100 H Pulse Rate [ From Monitor] Respiratory 25 H 26 H 25 H Rate Blood Pressure 121/70 107/62 122/75 O2 Sat by Pulse 80 L 77 L 75 L Oximetry 10/09/20 10/09/20 10/09/20 06:00 06:11 06:21 Temperature Pulse Rate 98 H 100 H 99 H Pulse Rate [ From Monitor] Respiratory 25 H 25 H 25 H Rate Blood Pressure 124/77 124/77 130/76 O2 Sat by Pulse 76 L 76 L 77 L Oximetry 10/09/20 10/09/20 10/09/20 06:30 06:41 06:51 Temperature Pulse Rate 96 H 97 H 92 H Pulse Rate [ From Monitor] Respiratory 24 24 24 Rate Blood Pressure 112/75 112/75 114/75 O2 Sat by Pulse 78 L 78 L 78 L Oximetry 10/09/20 10/09/20 10/09/20 07:00 07:10 07:11 Temperature 100.9 F H Pulse Rate 94 H 95 H Pulse Rate [ From Monitor] Respiratory 24 24 Rate Blood Pressure 107/71 107/71 O2 Sat by Pulse 78 L 78 L Oximetry 10/09/20 10/09/20 10/09/20 07:21 07:30 07:41 Temperature Pulse Rate 88 93 H 91 H Pulse Rate [ From Monitor] Respiratory 25 H 24 23 Rate Blood Pressure 117/77 119/73 119/73 O2 Sat by Pulse 79 L 79 L 79 L Oximetry 10/09/20 10/09/20 10/09/20 07:51 08:00 08:11 Temperature 100.6 F H Pulse Rate 92 H 92 H 88 Pulse Rate [ From Monitor] Respiratory 23 22 23 Rate Blood Pressure 118/70 113/74 113/74 O2 Sat by Pulse 79 L 79 L 80 L Oximetry 10/09/20 10/09/20 10/09/20 08:14 08:21 08:23 Temperature Pulse Rate 91 H 92 H 93 H Pulse Rate [ From Monitor] Respiratory 22 Rate Blood Pressure 113/74 121/75 O2 Sat by Pulse 80 L 81 L Oximetry 10/09/20 10/09/20 10/09/20 08:29 08:30 08:41 Temperature Pulse Rate 92 H 92 H Pulse Rate [ 92 H From Monitor] Respiratory 22 22 22 Rate Blood Pressure 117/74 117/74 O2 Sat by Pulse 81 L 81 L 82 L Oximetry 10/09/20 10/09/20 10/09/20 08:51 09:00 09:11 Temperature Pulse Rate 92 H 84 89 Pulse Rate [ From Monitor] Respiratory 22 21 22 Rate Blood Pressure 121/75 113/74 113/74 O2 Sat by Pulse 82 L 83 L 81 L Oximetry 10/09/20 10/09/20 10/09/20 09:21 09:30 09:41 Temperature Pulse Rate 87 88 87 Pulse Rate [ From Monitor] Respiratory 22 22 21 Rate Blood Pressure 115/65 112/71 112/71 O2 Sat by Pulse 81 L 81 L 80 L Oximetry 10/09/20 10/09/20 10/09/20 09:51 10:00 10:11 Temperature Pulse Rate 84 83 88 Pulse Rate [ From Monitor] Respiratory 21 Rate Blood Pressure 116/66 118/67 118/67 O2 Sat by Pulse 80 L 81 L 81 L Oximetry 10/09/20 10/09/20 10/09/20 10:21 10:30 10:41 Temperature Pulse Rate 84 83 83 Pulse Rate [ From Monitor] Respiratory Rate Blood Pressure 115/70 99/69 99/69 O2 Sat by Pulse 81 L 81 L 80 L Oximetry 10/09/20 10/09/20 10/09/20 10:51 11:00 11:11 Temperature Pulse Rate 83 80 81 Pulse Rate [ From Monitor] Respiratory 23 Rate Blood Pressure 112/69 114/73 114/73 O2 Sat by Pulse 81 L 80 L 80 L Oximetry 10/09/20 10/09/20 11:21 12:12 Temperature 100.4 F H Pulse Rate 83 Pulse Rate [ From Monitor] Respiratory 23 Rate Blood Pressure 102/72 O2 Sat by Pulse 80 L Oximetry Constitutional: no acute distress, other (middle aged male with mildly increased respiratory effort at rest on MVS) Eyes: non-icteric ENT: oropharynx moist, other (ETT 24 cm CARY) Neck: supple, no lymphadenopathy, no JVD, other (large circumference) Effort: mildly labored Ascultation: Bilateral: diminished breath sounds, rhonchi Percussion: Bilateral: not dull Cardiovascular: regular rate and rhythm Gastrointestinal: normoactive bowel sounds, soft, non-tender, non-distended (protuberant) Integumentary: normal Extremities: no cyanosis, no edema, pulses normal, no ischemia or petechiae, edema (peripheral) Neurologic: non-focal exam (grossly), pupils equal and round, unable to assess, other (sedated) Psychiatric: other (unable to assess re: AMS) CBC and BMP: 10/09/20 07:15 10/09/20 07:15 ABG, PT/INR, D-dimer: ABG ABG pH 7.365 (7.320-7.450) 10/09/20 04:00 POC ABG pCO2 39.0 mmHg (32.0-48.0) 10/09/20 04:00 POC ABG pO2 38.5 mmHg (83-108) L 10/09/20 04:00 POC ABG HCO3 21.8 10/09/20 04:00 ABG O2 Saturation 65.3 (0-100) 10/09/20 04:00 PT/INR, D-dimer PT 14.9 Sec. (12.2-14.9) 10/04/20 14:16 INR 1.12 (0.87-1.13) 10/04/20 14:16 D-Dimer 4280.35 ng/mlDDU (0-234) H 10/08/20 04:20 Abnormal lab findings: Abnormal Labs 10/02/20 10/02/20 10/02/20 01:01 01:01 01:01 WBC RBC 5.04 H Hgb Hct MCV 81 L MCH 27 L Seg Neuts % (Manual) 85.0 H Lymphocytes % (Manual) 1.0 L Monocytes % (Manual) 11.0 H Nucleated RBC % 1.0 H Seg Neutrophils # Man 9.4 H Lymphocytes # (Manual) 0.1 L Monocytes # (Manual) 1.2 H PT 15.3 H INR 1.16 H Thrombin Time 23.2 H D-Dimer Heparin Anti-Xa Level ABG pH POC ABG pO2 ABG Hemoglobin ABG Oxyhemoglobin ABG Sodium ABG Potassium ABG Chloride ABG Glucose Carboxyhemoglobin Sodium 133 L Potassium Chloride 85.1 L BUN 66 H Creatinine 5.6 H Glucose 292 H POC Glucose Phosphorus Ferritin AST 173 H ALT 139 H Lactate Dehydrogenase Total Creatine Kinase 2544 H CK-MB (CK-2) 14.8 H Troponin T 0.036 H C-Reactive Protein Total Protein Albumin 3.3 L Triglycerides 427 H HDL Cholesterol 31 L PTH Intact Arterial Blood Glucose Arterial Blood Ionized Calcium Urine WBC (Auto) Urine Creatinine Coronavirus (PCR) 10/02/20 10/02/20 10/02/20 02:59 03:51 11:47 WBC RBC Hgb Hct MCV MCH Seg Neuts % (Manual) Lymphocytes % (Manual) Monocytes % (Manual) Nucleated RBC % Seg Neutrophils # Man Lymphocytes # (Manual) Monocytes # (Manual) PT INR Thrombin Time D-Dimer Heparin Anti-Xa Level ABG pH POC ABG pO2 55.2 L ABG Hemoglobin ABG Oxyhemoglobin 85.4 L ABG Sodium 132.0 L ABG Potassium ABG Chloride 89.0 L ABG Glucose 372 H Carboxyhemoglobin Sodium Potassium Chloride BUN Creatinine Glucose POC Glucose Phosphorus Ferritin AST ALT Lactate Dehydrogenase Total Creatine Kinase 2548 H CK-MB (CK-2) Troponin T C-Reactive Protein Total Protein Albumin Triglycerides HDL Cholesterol PTH Intact Arterial Blood Glucose 372 H Arterial Blood Ionized Calcium Urine WBC (Auto) 8.0 H Urine Creatinine Coronavirus (PCR) 10/02/20 10/02/20 10/02/20 11:47 11:47 11:47 WBC RBC Hgb Hct MCV MCH Seg Neuts % (Manual) Lymphocytes % (Manual) Monocytes % (Manual) Nucleated RBC % Seg Neutrophils # Man Lymphocytes # (Manual) Monocytes # (Manual) PT INR Thrombin Time D-Dimer 1023.48 H Heparin Anti-Xa Level ABG pH POC ABG pO2 ABG Hemoglobin ABG Oxyhemoglobin ABG Sodium ABG Potassium ABG Chloride ABG Glucose Carboxyhemoglobin Sodium Potassium Chloride BUN Creatinine Glucose POC Glucose Phosphorus Ferritin 8643.0 H AST ALT Lactate Dehydrogenase 828 H Total Creatine Kinase CK-MB (CK-2) Troponin T C-Reactive Protein 13.60 H Total Protein Albumin Triglycerides HDL Cholesterol PTH Intact Arterial Blood Glucose Arterial Blood Ionized Calcium Urine WBC (Auto) Urine Creatinine Coronavirus (PCR) 10/02/20 10/02/20 10/02/20 18:48 23:51 Unknown WBC RBC Hgb Hct MCV MCH Seg Neuts % (Manual) Lymphocytes % (Manual) Monocytes % (Manual) Nucleated RBC % Seg Neutrophils # Man Lymphocytes # (Manual) Monocytes # (Manual) PT INR Thrombin Time D-Dimer Heparin Anti-Xa Level ABG pH POC ABG pO2 ABG Hemoglobin ABG Oxyhemoglobin ABG Sodium ABG Potassium ABG Chloride ABG Glucose Carboxyhemoglobin Sodium Potassium Chloride BUN Creatinine Glucose POC Glucose 441 H 457 H Phosphorus Ferritin AST ALT Lactate Dehydrogenase Total Creatine Kinase CK-MB (CK-2) Troponin T C-Reactive Protein Total Protein Albumin Triglycerides HDL Cholesterol PTH Intact Arterial Blood Glucose Arterial Blood Ionized Calcium Urine WBC (Auto) Urine Creatinine Coronavirus (PCR) Positive A 10/03/20 10/03/20 10/03/20 05:22 05:25 05:25 WBC RBC Hgb Hct MCV MCH Seg Neuts % (Manual) Lymphocytes % (Manual) Monocytes % (Manual) Nucleated RBC % Seg Neutrophils # Man Lymphocytes # (Manual) Monocytes # (Manual) PT INR Thrombin Time D-Dimer Heparin Anti-Xa Level ABG pH POC ABG pO2 74.3 L ABG Hemoglobin ABG Oxyhemoglobin 93.2 L ABG Sodium 133.6 L ABG Potassium ABG Chloride 92.0 L ABG Glucose 399 H Carboxyhemoglobin 0.3 L Sodium 135 L Potassium Chloride 88.0 L BUN 102 H Creatinine 7.5 H Glucose 383 H POC Glucose Phosphorus Ferritin AST 71 H ALT 88 H Lactate Dehydrogenase Total Creatine Kinase 1597 H CK-MB (CK-2) Troponin T C-Reactive Protein Total Protein Albumin 2.6 L Triglycerides HDL Cholesterol PTH Intact Arterial Blood Glucose 399 H Arterial Blood Ionized Calcium Urine WBC (Auto) Urine Creatinine Coronavirus (PCR) 10/03/20 10/03/20 10/03/20 06:09 06:30 09:06 WBC RBC Hgb Hct MCV MCH Seg Neuts % (Manual) Lymphocytes % (Manual) Monocytes % (Manual) Nucleated RBC % Seg Neutrophils # Man Lymphocytes # (Manual) Monocytes # (Manual) PT INR Thrombin Time D-Dimer Heparin Anti-Xa Level ABG pH POC ABG pO2 ABG Hemoglobin ABG Oxyhemoglobin ABG Sodium ABG Potassium ABG Chloride ABG Glucose Carboxyhemoglobin Sodium Potassium Chloride BUN Creatinine Glucose POC Glucose 360 H 298 H Phosphorus Ferritin AST ALT Lactate Dehydrogenase Total Creatine Kinase CK-MB (CK-2) Troponin T C-Reactive Protein Total Protein Albumin Triglycerides HDL Cholesterol PTH Intact Arterial Blood Glucose Arterial Blood Ionized Calcium Urine WBC (Auto) Urine Creatinine 156.1 H Coronavirus (PCR) 10/03/20 10/03/20 10/03/20 13:07 16:37 21:32 WBC RBC Hgb Hct MCV MCH Seg Neuts % (Manual) Lymphocytes % (Manual) Monocytes % (Manual) Nucleated RBC % Seg Neutrophils # Man Lymphocytes # (Manual) Monocytes # (Manual) PT INR Thrombin Time D-Dimer Heparin Anti-Xa Level ABG pH POC ABG pO2 ABG Hemoglobin ABG Oxyhemoglobin ABG Sodium ABG Potassium ABG Chloride ABG Glucose Carboxyhemoglobin Sodium Potassium Chloride BUN Creatinine Glucose POC Glucose 243 H 229 H 169 H Phosphorus Ferritin AST ALT Lactate Dehydrogenase Total Creatine Kinase CK-MB (CK-2) Troponin T C-Reactive Protein Total Protein Albumin Triglycerides HDL Cholesterol PTH Intact Arterial Blood Glucose Arterial Blood Ionized Calcium Urine WBC (Auto) Urine Creatinine Coronavirus (PCR) 10/03/20 10/04/20 10/04/20 23:09 03:26 04:58 WBC RBC Hgb Hct MCV MCH Seg Neuts % (Manual) Lymphocytes % (Manual) Monocytes % (Manual) Nucleated RBC % Seg Neutrophils # Man Lymphocytes # (Manual) Monocytes # (Manual) PT INR Thrombin Time D-Dimer Heparin Anti-Xa Level ABG pH POC ABG pO2 77.8 L ABG Hemoglobin ABG Oxyhemoglobin ABG Sodium ABG Potassium ABG Chloride ABG Glucose Carboxyhemoglobin 0.1 L Sodium Potassium Chloride 97.1 L BUN 112 H Creatinine 8.2 H Glucose 70 L POC Glucose 150 H Phosphorus 8.10 H Ferritin AST 50 H ALT 66 H Lactate Dehydrogenase Total Creatine Kinase 983 H CK-MB (CK-2) Troponin T C-Reactive Protein Total Protein Albumin 2.6 L Triglycerides HDL Cholesterol PTH Intact Arterial Blood Glucose Arterial Blood Ionized Calcium 4.5 L Urine WBC (Auto) Urine Creatinine Coronavirus (PCR) 10/04/20 10/04/20 10/04/20 04:58 04:58 09:59 WBC 15.7 H RBC Hgb Hct MCV 82 L MCH Seg Neuts % (Manual) Lymphocytes % (Manual) Monocytes % (Manual) Nucleated RBC % Seg Neutrophils # Man Lymphocytes # (Manual) Monocytes # (Manual) PT INR Thrombin Time D-Dimer 2287.60 H Heparin Anti-Xa Level ABG pH POC ABG pO2 ABG Hemoglobin ABG Oxyhemoglobin ABG Sodium ABG Potassium ABG Chloride ABG Glucose Carboxyhemoglobin Sodium Potassium Chloride BUN Creatinine Glucose POC Glucose Phosphorus Ferritin AST ALT Lactate Dehydrogenase Total Creatine Kinase CK-MB (CK-2) Troponin T C-Reactive Protein Total Protein Albumin Triglycerides HDL Cholesterol PTH Intact 140.3 H Arterial Blood Glucose Arterial Blood Ionized Calcium Urine WBC (Auto) Urine Creatinine Coronavirus (PCR) 10/04/20 10/04/20 10/04/20 09:59 09:59 11:35 WBC RBC Hgb Hct MCV MCH Seg Neuts % (Manual) Lymphocytes % (Manual) Monocytes % (Manual) Nucleated RBC % Seg Neutrophils # Man Lymphocytes # (Manual) Monocytes # (Manual) PT INR Thrombin Time D-Dimer Heparin Anti-Xa Level ABG pH POC ABG pO2 ABG Hemoglobin ABG Oxyhemoglobin ABG Sodium ABG Potassium ABG Chloride ABG Glucose Carboxyhemoglobin Sodium Potassium Chloride BUN Creatinine Glucose POC Glucose 126 H Phosphorus Ferritin > 2000.0 H AST ALT Lactate Dehydrogenase 735 H Total Creatine Kinase CK-MB (CK-2) Troponin T C-Reactive Protein 16.40 H Total Protein Albumin Triglycerides HDL Cholesterol PTH Intact Arterial Blood Glucose Arterial Blood Ionized Calcium Urine WBC (Auto) Urine Creatinine Coronavirus (PCR) 10/04/20 10/04/20 10/04/20 14:16 17:17 21:39 WBC RBC Hgb 11.6 L Hct 35.2 L MCV MCH Seg Neuts % (Manual) Lymphocytes % (Manual) Monocytes % (Manual) Nucleated RBC % Seg Neutrophils # Man Lymphocytes # (Manual) Monocytes # (Manual) PT INR Thrombin Time D-Dimer Heparin Anti-Xa Level ABG pH POC ABG pO2 ABG Hemoglobin ABG Oxyhemoglobin ABG Sodium ABG Potassium ABG Chloride ABG Glucose Carboxyhemoglobin Sodium Potassium Chloride BUN Creatinine Glucose POC Glucose 178 H 160 H Phosphorus Ferritin AST ALT Lactate Dehydrogenase Total Creatine Kinase CK-MB (CK-2) Troponin T C-Reactive Protein Total Protein Albumin Triglycerides HDL Cholesterol PTH Intact Arterial Blood Glucose Arterial Blood Ionized Calcium Urine WBC (Auto) Urine Creatinine Coronavirus (PCR) 10/05/20 10/05/20 10/05/20 00:13 03:13 05:04 WBC RBC Hgb Hct MCV MCH Seg Neuts % (Manual) Lymphocytes % (Manual) Monocytes % (Manual) Nucleated RBC % Seg Neutrophils # Man Lymphocytes # (Manual) Monocytes # (Manual) PT INR Thrombin Time D-Dimer Heparin Anti-Xa Level ABG pH POC ABG pO2 ABG Hemoglobin ABG Oxyhemoglobin ABG Sodium ABG Potassium ABG Chloride ABG Glucose 119 H Carboxyhemoglobin 0.3 L Sodium Potassium Chloride BUN 90 H Creatinine 5.9 H Glucose 107 H POC Glucose 141 H Phosphorus Ferritin AST ALT Lactate Dehydrogenase Total Creatine Kinase 482 H CK-MB (CK-2) Troponin T C-Reactive Protein Total Protein Albumin Triglycerides HDL Cholesterol PTH Intact Arterial Blood Glucose 119 H Arterial Blood Ionized Calcium 4.4 L Urine WBC (Auto) Urine Creatinine Coronavirus (PCR) 10/05/20 10/05/20 10/05/20 11:33 18:04 21:10 WBC RBC Hgb Hct MCV MCH Seg Neuts % (Manual) Lymphocytes % (Manual) Monocytes % (Manual) Nucleated RBC % Seg Neutrophils # Man Lymphocytes # (Manual) Monocytes # (Manual) PT INR Thrombin Time D-Dimer Heparin Anti-Xa Level ABG pH POC ABG pO2 ABG Hemoglobin ABG Oxyhemoglobin ABG Sodium ABG Potassium ABG Chloride ABG Glucose Carboxyhemoglobin Sodium Potassium Chloride BUN Creatinine Glucose POC Glucose 136 H 185 H 162 H Phosphorus Ferritin AST ALT Lactate Dehydrogenase Total Creatine Kinase CK-MB (CK-2) Troponin T C-Reactive Protein Total Protein Albumin Triglycerides HDL Cholesterol PTH Intact Arterial Blood Glucose Arterial Blood Ionized Calcium Urine WBC (Auto) Urine Creatinine Coronavirus (PCR) 10/06/20 10/06/20 10/06/20 02:09 02:09 02:09 WBC 16.3 H RBC Hgb 11.3 L Hct 34.7 L MCV 83 L MCH 27 L Seg Neuts % (Manual) Lymphocytes % (Manual) Monocytes % (Manual) Nucleated RBC % Seg Neutrophils # Man Lymphocytes # (Manual) Monocytes # (Manual) PT INR Thrombin Time D-Dimer Heparin Anti-Xa Level ABG pH POC ABG pO2 ABG Hemoglobin ABG Oxyhemoglobin ABG Sodium ABG Potassium ABG Chloride ABG Glucose Carboxyhemoglobin Sodium Potassium Chloride BUN 107 H Creatinine 6.6 H Glucose 175 H POC Glucose Phosphorus Ferritin AST 52 H ALT Lactate Dehydrogenase 802 H Total Creatine Kinase CK-MB (CK-2) Troponin T C-Reactive Protein 27.00 H Total Protein 5.2 L Albumin 2.3 L Triglycerides HDL Cholesterol PTH Intact Arterial Blood Glucose Arterial Blood Ionized Calcium Urine WBC (Auto) Urine Creatinine Coronavirus (PCR) 10/06/20 10/06/20 10/06/20 02:09 02:37 05:12 WBC RBC Hgb Hct MCV MCH Seg Neuts % (Manual) Lymphocytes % (Manual) Monocytes % (Manual) Nucleated RBC % Seg Neutrophils # Man Lymphocytes # (Manual) Monocytes # (Manual) PT INR Thrombin Time D-Dimer Heparin Anti-Xa Level ABG pH POC ABG pO2 75.5 L ABG Hemoglobin ABG Oxyhemoglobin 93.3 L ABG Sodium ABG Potassium ABG Chloride ABG Glucose 165 H Carboxyhemoglobin 0.1 L Sodium Potassium Chloride BUN Creatinine Glucose POC Glucose 142 H Phosphorus Ferritin AST ALT Lactate Dehydrogenase Total Creatine Kinase CK-MB (CK-2) Troponin T C-Reactive Protein Total Protein Albumin Triglycerides 392 H HDL Cholesterol PTH Intact Arterial Blood Glucose 165 H Arterial Blood Ionized Calcium Urine WBC (Auto) Urine Creatinine Coronavirus (PCR) 10/06/20 10/06/20 10/06/20 06:53 10:38 11:22 WBC RBC Hgb Hct MCV MCH Seg Neuts % (Manual) Lymphocytes % (Manual) Monocytes % (Manual) Nucleated RBC % Seg Neutrophils # Man Lymphocytes # (Manual) Monocytes # (Manual) PT INR Thrombin Time D-Dimer 2754.80 H Heparin Anti-Xa Level ABG pH POC ABG pO2 ABG Hemoglobin ABG Oxyhemoglobin ABG Sodium ABG Potassium ABG Chloride ABG Glucose Carboxyhemoglobin Sodium Potassium Chloride BUN Creatinine Glucose POC Glucose 166 H Phosphorus Ferritin > 2000.0 H AST ALT Lactate Dehydrogenase Total Creatine Kinase CK-MB (CK-2) Troponin T C-Reactive Protein Total Protein Albumin Triglycerides HDL Cholesterol PTH Intact Arterial Blood Glucose Arterial Blood Ionized Calcium Urine WBC (Auto) Urine Creatinine Coronavirus (PCR) 10/06/20 10/06/20 10/07/20 17:52 23:58 05:29 WBC RBC Hgb Hct MCV MCH Seg Neuts % (Manual) Lymphocytes % (Manual) Monocytes % (Manual) Nucleated RBC % Seg Neutrophils # Man Lymphocytes # (Manual) Monocytes # (Manual) PT INR Thrombin Time D-Dimer Heparin Anti-Xa Level ABG pH POC ABG pO2 ABG Hemoglobin ABG Oxyhemoglobin ABG Sodium ABG Potassium ABG Chloride ABG Glucose Carboxyhemoglobin Sodium Potassium Chloride BUN Creatinine Glucose POC Glucose 221 H 228 H 147 H Phosphorus Ferritin AST ALT Lactate Dehydrogenase Total Creatine Kinase CK-MB (CK-2) Troponin T C-Reactive Protein Total Protein Albumin Triglycerides HDL Cholesterol PTH Intact Arterial Blood Glucose Arterial Blood Ionized Calcium Urine WBC (Auto) Urine Creatinine Coronavirus (PCR) 10/07/20 10/07/20 10/07/20 06:00 06:00 06:00 WBC 16.2 H RBC Hgb 11.0 L Hct 34.7 L MCV 82 L MCH 26 L Seg Neuts % (Manual) Lymphocytes % (Manual) Monocytes % (Manual) Nucleated RBC % Seg Neutrophils # Man Lymphocytes # (Manual) Monocytes # (Manual) PT INR Thrombin Time D-Dimer Heparin Anti-Xa Level 0.26 L ABG pH POC ABG pO2 ABG Hemoglobin ABG Oxyhemoglobin ABG Sodium ABG Potassium ABG Chloride ABG Glucose Carboxyhemoglobin Sodium Potassium Chloride 97.3 L BUN 77 H Creatinine 5.7 H Glucose 151 H POC Glucose Phosphorus Ferritin AST ALT Lactate Dehydrogenase Total Creatine Kinase 473 H CK-MB (CK-2) Troponin T C-Reactive Protein Total Protein Albumin Triglycerides HDL Cholesterol PTH Intact Arterial Blood Glucose Arterial Blood Ionized Calcium Urine WBC (Auto) Urine Creatinine Coronavirus (PCR) 10/07/20 10/07/20 10/07/20 13:14 13:58 17:17 WBC RBC Hgb Hct MCV MCH Seg Neuts % (Manual) Lymphocytes % (Manual) Monocytes % (Manual) Nucleated RBC % Seg Neutrophils # Man Lymphocytes # (Manual) Monocytes # (Manual) PT INR Thrombin Time D-Dimer Heparin Anti-Xa Level ABG pH 7.305 L 7.313 L POC ABG pO2 49.7 L 45.8 L ABG Hemoglobin ABG Oxyhemoglobin 80.5 L 76.6 L ABG Sodium 133.3 L 131.4 L ABG Potassium 4.6 H ABG Chloride ABG Glucose 125 H 158 H Carboxyhemoglobin Sodium Potassium Chloride BUN Creatinine Glucose POC Glucose 132 H Phosphorus Ferritin AST ALT Lactate Dehydrogenase Total Creatine Kinase CK-MB (CK-2) Troponin T C-Reactive Protein Total Protein Albumin Triglycerides HDL Cholesterol PTH Intact Arterial Blood Glucose 125 H 158 H Arterial Blood Ionized Calcium 4.5 L 4.5 L Urine WBC (Auto) Urine Creatinine Coronavirus (PCR) 10/07/20 10/07/20 10/08/20 17:40 23:11 04:00 WBC RBC Hgb Hct MCV MCH Seg Neuts % (Manual) Lymphocytes % (Manual) Monocytes % (Manual) Nucleated RBC % Seg Neutrophils # Man Lymphocytes # (Manual) Monocytes # (Manual) PT INR Thrombin Time D-Dimer Heparin Anti-Xa Level ABG pH POC ABG pO2 46.9 L ABG Hemoglobin ABG Oxyhemoglobin 77.7 L ABG Sodium 134.1 L ABG Potassium 4.6 H ABG Chloride ABG Glucose 120 H Carboxyhemoglobin Sodium Potassium Chloride BUN Creatinine Glucose POC Glucose 152 H 108 H Phosphorus Ferritin AST ALT Lactate Dehydrogenase Total Creatine Kinase CK-MB (CK-2) Troponin T C-Reactive Protein Total Protein Albumin Triglycerides HDL Cholesterol PTH Intact Arterial Blood Glucose 120 H Arterial Blood Ionized Calcium 4.3 L Urine WBC (Auto) Urine Creatinine Coronavirus (PCR) 10/08/20 10/08/20 10/08/20 04:20 04:20 04:20 WBC 17.1 H RBC Hgb 11.7 L Hct MCV 82 L MCH 26 L Seg Neuts % (Manual) Lymphocytes % (Manual) Monocytes % (Manual) Nucleated RBC % Seg Neutrophils # Man Lymphocytes # (Manual) Monocytes # (Manual) PT INR Thrombin Time D-Dimer 4280.35 H Heparin Anti-Xa Level 0.14 L ABG pH POC ABG pO2 ABG Hemoglobin ABG Oxyhemoglobin ABG Sodium ABG Potassium ABG Chloride ABG Glucose Carboxyhemoglobin Sodium Potassium 5.1 H D Chloride 94.8 L BUN 103 H Creatinine 7.3 H Glucose 107 H POC Glucose Phosphorus Ferritin AST ALT Lactate Dehydrogenase 786 H Total Creatine Kinase CK-MB (CK-2) Troponin T C-Reactive Protein 28.70 H Total Protein Albumin Triglycerides HDL Cholesterol PTH Intact Arterial Blood Glucose Arterial Blood Ionized Calcium Urine WBC (Auto) Urine Creatinine Coronavirus (PCR) 10/08/20 10/08/20 10/08/20 12:19 14:12 17:51 WBC RBC Hgb Hct MCV MCH Seg Neuts % (Manual) Lymphocytes % (Manual) Monocytes % (Manual) Nucleated RBC % Seg Neutrophils # Man Lymphocytes # (Manual) Monocytes # (Manual) PT INR Thrombin Time D-Dimer Heparin Anti-Xa Level ABG pH 7.293 L POC ABG pO2 48.4 L ABG Hemoglobin 11.7 L ABG Oxyhemoglobin 77.4 L ABG Sodium 131.4 L ABG Potassium 4.8 H ABG Chloride ABG Glucose 184 H Carboxyhemoglobin Sodium Potassium Chloride BUN Creatinine Glucose POC Glucose 169 H 165 H Phosphorus Ferritin AST ALT Lactate Dehydrogenase Total Creatine Kinase CK-MB (CK-2) Troponin T C-Reactive Protein Total Protein Albumin Triglycerides HDL Cholesterol PTH Intact Arterial Blood Glucose 184 H Arterial Blood Ionized Calcium 4.5 L Urine WBC (Auto) Urine Creatinine Coronavirus (PCR) 10/08/20 10/09/20 10/09/20 22:35 04:00 05:08 WBC RBC Hgb Hct MCV MCH Seg Neuts % (Manual) Lymphocytes % (Manual) Monocytes % (Manual) Nucleated RBC % Seg Neutrophils # Man Lymphocytes # (Manual) Monocytes # (Manual) PT INR Thrombin Time D-Dimer Heparin Anti-Xa Level ABG pH POC ABG pO2 38.5 L ABG Hemoglobin ABG Oxyhemoglobin 64.5 L ABG Sodium 126.7 L ABG Potassium 4.8 H ABG Chloride 95.0 L ABG Glucose 250 H Carboxyhemoglobin Sodium Potassium Chloride BUN Creatinine Glucose POC Glucose 221 H 228 H Phosphorus Ferritin AST ALT Lactate Dehydrogenase Total Creatine Kinase CK-MB (CK-2) Troponin T C-Reactive Protein Total Protein Albumin Triglycerides HDL Cholesterol PTH Intact Arterial Blood Glucose 250 H Arterial Blood Ionized Calcium 4.4 L Urine WBC (Auto) Urine Creatinine Coronavirus (PCR) 10/09/20 10/09/20 10/09/20 07:15 07:15 07:15 WBC 19.0 H RBC Hgb Hct MCV 82 L MCH 27 L Seg Neuts % (Manual) Lymphocytes % (Manual) Monocytes % (Manual) Nucleated RBC % Seg Neutrophils # Man Lymphocytes # (Manual) Monocytes # (Manual) PT INR Thrombin Time D-Dimer Heparin Anti-Xa Level 0.16 L ABG pH POC ABG pO2 ABG Hemoglobin ABG Oxyhemoglobin ABG Sodium ABG Potassium ABG Chloride ABG Glucose Carboxyhemoglobin Sodium 134 L Potassium 5.3 H Chloride 90.6 L BUN 86 H Creatinine 6.3 H Glucose 207 H POC Glucose Phosphorus Ferritin AST ALT Lactate Dehydrogenase Total Creatine Kinase CK-MB (CK-2) Troponin T C-Reactive Protein Total Protein Albumin Triglycerides 864 H HDL Cholesterol PTH Intact Arterial Blood Glucose Arterial Blood Ionized Calcium Urine WBC (Auto) Urine Creatinine Coronavirus (PCR) 10/09/20 11:17 WBC RBC Hgb Hct MCV MCH Seg Neuts % (Manual) Lymphocytes % (Manual) Monocytes % (Manual) Nucleated RBC % Seg Neutrophils # Man Lymphocytes # (Manual) Monocytes # (Manual) PT INR Thrombin Time D-Dimer Heparin Anti-Xa Level ABG pH POC ABG pO2 ABG Hemoglobin ABG Oxyhemoglobin ABG Sodium ABG Potassium ABG Chloride ABG Glucose Carboxyhemoglobin Sodium Potassium Chloride BUN Creatinine Glucose POC Glucose 197 H Phosphorus Ferritin AST ALT Lactate Dehydrogenase Total Creatine Kinase CK-MB (CK-2) Troponin T C-Reactive Protein Total Protein Albumin Triglycerides HDL Cholesterol PTH Intact Arterial Blood Glucose Arterial Blood Ionized Calcium Urine WBC (Auto) Urine Creatinine Coronavirus (PCR) Chest x-ray: other (none today) Allied health notes reviewed: nursing
[2020-10-09] MEDS: LACTULOSE 20 GM/30 ML ORAL LIQD PO SCH ×2 (15:45→21:50)
[2020-10-09] MEDS: METOCLOPRAMIDE 10 MG/2 ML INJ IV SCH ×2 (15:50→21:49)
--- NOTE | 2020-10-09 17:07 | Progress Note ---
Assessment and Plan Assessment and plan: This is a 50-year-old male with HTN, DM who was diagnosed with COVID-19 approximately 1 week prior to presentation admitted for COVID-19 pneumonia, acute respiratory failure, rule out CVA, acute encephalopathy, sepsis, OLIVIA. Neuro: Acute encephalopathy, rule out CVA -Neurology consulted, appreciate recommendations -Goal RASS -3 to -4 while proned -Sedated with fentanyl, propofol off while on APRV but Triglyceride is >700, propofol d/c -MRI brain or CT brain pending as patient is too unstable at this time -10/02 CT head with abnormal finding, see reading -10/02 CTA head, see report -10/02 CTA neck, see report -10/02 carotid Doppler ultrasound, see report -10/02 EEG ,see report Cardiology: SRSB, H/O HTN -Blood pressure monitoring per protocol -Patient is normotensive -Echocardiogram shows LVEF 50 to 55%, saline bubble contrast intravenous injection demonstrates PFO, trace MR, mild AR, trace to mild TR, RVSP is 33 mmHg, mild WA with no pleural effusion Respiratory: Acute hypoxic respiratory failure -CM consulted, appreciate recommendations -OETT 7.5 @ 24 lips and currently on APRV -10/09 CXR and ABG reviewed and CCM made vent changes with improved SpO2 -Serial ABG and CXR -Proning as tolerated for 16 hours -VAP bundle -SAT/SBT when able GI: Transaminitis, TF, constipation, Triglyceridemia -GI and NTR consulted, appreciate recommendations -10/02 abdominal ultrasound shows hepatomegaly, mild splenomegaly and trace perihepatic ascites, see report -BR: Senokot, miralax; Mag citrate 10/08 with out success and now on lactulose -PPI -Trend LFTs -10/09 [id number]-> lipase ordered, RUQ US pending : OLIVIA 2/2 COVID 19 with underlying vasomotor nephropathy, acute rhabdomyolysis -Nephrology consulted, appreciate recommendations -Daily weights -Last 24-hour fluid balance positive 1865 -Avoid nephrotoxic medications -Renally dose medications -Per nephro: patient received contrast on 10/02; Initiated hemodialysis 10/04 -HD per nephrology -Trend CK, BMP Endo: Hyperglycemia, h/o DM -Hemoglobin A1c pending -SSI, Accu-Cheks every 6 -Lantus, titrate as needed -Avoid hypoglycemia Heme: Elevated D-dimer, leukocytosis -Bilateral lower leg Doppler ultrasound negative for DVT/SVT -Transfuse for hemoglobin less than 7 -Systemic anticoagulation with heparin gtt -Trend CBC ID: Sepsis, COVID-19 pneumonia -Infectious disease consulted, appreciate recommendations -Contact/isolation precautions -Steroids (10/03 through 10/13) -Ceftriaxone azithromycin for 5 days (10/03 through 10/07) -Actemra x1 on 10/08 -Vitamin D/zinc/vitamin C -Patient is not a candidate for remdesivir due to renal function -Trend COVID-19 inflammatory markers -Prone as needed -Recultured today and restarted on vancomycin and cefepime today per ID The high probability of a clinically significant, sudden or life threatening deterioration of the [PULMONARY, NEUROLOGY] system(s) required my full and direct attention, intervention and personal management. The aggregate critical c are time was [90] minutes. This time is in addition to time spent performing reported procedures but includes the following: [X] Data Review and interpretation [X] Patient assessment and monitoring of vital signs [X] Documentation [X] Medication orders and management Disposition Plan: ICU for now Total Time Spent with Patient (Minutes): 90 History Interval history: This is a 50-year-old male with HTN, DM who presented to the emergency department on 10/02 s/p being found unresponsive by his family with last known well at 8 PM on 09/30/2020 and was diagnosed with COVID-19 a week prior to presentation. Work-up in the emergency department revealed CK of 2554, transaminitis, elevated troponin, elevated BUN/creatinine and CT scan of the head showed subcortical white matter hypodensity in the right frontal lobe with no acute bleed and CXR showed bilateral pneumonia. Patient was admitted to the hospitalist service with consults to [facility], infectious disease, GI and nephrology as a COVID-19 PUI, OLIVIA, rhabdomyolysis, elevated liver enzymes, troponin, acute hypoxic respiratory failure with rule out CVA. 10/03: Patient continues on full ventilator support. Continues on steroids. Recommend Actemra given elevated CRP and intubation. Continue to monitor renal function. Cable Mechanic following patient may need dialysis support but will defer to food operations manager. Will adjust insulin for better blood sugar control. GI input noted: LFT improving, consistent with combination of mild ischemic hepatitis and related to his covid infection, Hepatic synthetic function intact continue supportive care, avoid hepatotoxins and liver enzymes should continue to gradually normalize" Neurologist input is also noted recommending an MRI for further evaluation of abnormal CT head finding. 10/04: Patient seen and examined. D-dimer is elevated. Will start on heparin drip until final embolism is ruled out and DVT is ruled out. Will check creatinine kinase to ensure improvement in the rhabdomyolysis. Called family, unable to Obtain AND COULD NOT LEAVE A MESSAGE PER NURSE PATIENT DOES WAKE UP 10/05: Patient seen and examined, remains on full ventilatory support. Rhabdomylsis, improving, Patient started on HD, Awaiting MRI for further evaluation. CXR done yesterday showed worsening bilateral infiltrate. ID input noted, Patient still following commands some when off sedation. - Continue Dexamethasone. - Awaiting Acetmara- Out of stock for now in the hospital - Renal function precludes Remdesivir - Continue heparin drip considering elevated D.dimer till VTE ruled out. 10/06: This morning has some examination patient sedated on propofol and fentanyl, MV with a PEEP of 14 and 80% FiO2. T-max 101.1. Patient still awaiting Actemra dose. Patient is prone at the time of my examination and will be supine at 1330. 10/07: Patient patient was proned again overnight and supinated around 1300. Patient's ventilatory settings were changed however he remains hypoxemic. Patient will be proned today at 8 PM per CCM. Versed gtt. Echo to be completed today 10/08: Patient was proned at 2000 and supine now, SP02 now 90%. Remains on AC at 100% FiO2. Possible HD today. Overnight the patient consistently satted in the 80s. 10/09: Patient did not have a bowel movement yesterday and has been ordered lactulose and Reglan patient to have hemodialysis today. Continue proning for 16 hours/day as tolerated. Patient hypoxic into the 80s overnight and vent settings were changed today to APRV this afternoon. Hospitalist Physical - Constitutional Vitals: Temp Pulse Resp BP Pulse Ox 100.0 F H 107 H 16 129/70 95 10/09/20 15:52 10/09/20 15:57 10/09/20 15:41 10/09/20 15:57 10/09/20 15:57 General appearance: Present: other (Intubated and sedated) - Respiratory Respiratory: bilateral: diminished - Cardiovascular Rhythm: regular Heart Sounds: Present: S1 & S2 - Abdominal General gastrointestinal: soft - Integumentary Integumentary: Present: warm - Psychiatric Psychiatric: other (sedated) - Neurologic Neurologic: other (sedated) - Allied Health Allied health notes reviewed: nursing, RT, social work HEART Score - HEART Score Troponin: Troponin T 0.036 ng/mL (0.00-0.029) H 10/02/20 01:01 Results - Labs CBC & Chem 7: 10/09/20 07:15 10/09/20 07:15 Labs: Laboratory Last Values WBC 19.0 K/mm3 (4.5-11.0) H 10/09/20 07:15 RBC 4.47 M/mm3 (3.65-5.03) 10/09/20 07:15 Hgb 12.2 gm/dl (11.8-15.2) 10/09/20 07:15 Hct 36.8 % (35.5-45.6) 10/09/20 07:15 MCV 82 fl (84-94) L 10/09/20 07:15 MCH 27 pg (28-32) L 10/09/20 07:15 MCHC 33 % (32-34) 10/09/20 07:15 RDW 14.7 % (13.2-15.2) 10/09/20 07:15 Plt Count 246 K/mm3 (140-440) 10/09/20 07:15 Add Manual Diff Complete 10/02/20 01:01 Total Counted 100 10/02/20 01:01 Seg Neuts % (Manual) 85.0 % (40.0-70.0) H 10/02/20 01:01 Band Neutrophils % 3.0 % 10/02/20 01:01 Lymphocytes % (Manual) 1.0 % (13.4-35.0) L 10/02/20 01:01 Monocytes % (Manual) 11.0 % (0.0-7.3) H 10/02/20 01:01 Nucleated RBC % 1.0 % (0.0-0.9) H 10/02/20 01:01 Seg Neutrophils # Man 9.4 K/mm3 (1.8-7.7) H 10/02/20 01:01 Band Neutrophils # 0.3 K/mm3 10/02/20 01:01 Lymphocytes # (Manual) 0.1 K/mm3 (1.2-5.4) L 10/02/20 01:01 Abs React Lymphs (Man) 0.0 K/mm3 10/02/20 01:01 Monocytes # (Manual) 1.2 K/mm3 (0.0-0.8) H 10/02/20 01:01 Eosinophils # (Manual) 0.0 K/mm3 (0.0-0.4) 10/02/20 01:01 Basophils # (Manual) 0.0 K/mm3 (0.0-0.1) 10/02/20 01:01 Metamyelocytes # 0.0 K/mm3 10/02/20 01:01 Myelocytes # 0.0 K/mm3 10/02/20 01:01 Promyelocytes # 0.0 K/mm3 10/02/20 01:01 Blast Cells # 0.0 K/mm3 10/02/20 01:01 WBC Morphology Not Reportable 10/02/20 01:01 Hypersegmented Neuts Not Reportable 10/02/20 01:01 Hyposegmented Neuts Not Reportable 10/02/20 01:01 Hypogranular Neuts Not Reportable 10/02/20 01:01 Smudge Cells Not Reportable 10/02/20 01:01 Toxic Granulation Not Reportable 10/02/20 01:01 Toxic Vacuolation Not Reportable 10/02/20 01:01 Dohle Bodies Not Reportable 10/02/20 01:01 Pelger-Huet Anomaly Not Reportable 10/02/20 01:01 Yohan Rods Not Reportable 10/02/20 01:01 Platelet Estimate Consistent w auto 10/02/20 01:01 Clumped Platelets Not Reportable 10/02/20 01:01 Plt Clumps, EDTA Not Reportable 10/02/20 01:01 Large Platelets Few 10/02/20 01:01 Giant Platelets Not Reportable 10/02/20 01:01 Platelet Satelliting Not Reportable 10/02/20 01:01 Plt Morphology Comment Not Reportable 10/02/20 01:01 RBC Morphology Not Reportable 10/02/20 01:01 Dimorphic RBCs Not Reportable 10/02/20 01:01 Polychromasia Not Reportable 10/02/20 01:01 Hypochromasia Not Reportable 10/02/20 01:01 Poikilocytosis Not Reportable 10/02/20 01:01 Anisocytosis 1+ 10/02/20 01:01 Microcytosis Not Reportable 10/02/20 01:01 Macrocytosis Not Reportable 10/02/20 01:01 Spherocytes Not Reportable 10/02/20 01:01 Pappenheimer Bodies Not Reportable 10/02/20 01:01 Sickle Cells Not Reportable 10/02/20 01:01 Target Cells Not Reportable 10/02/20 01:01 Tear Drop Cells Not Reportable 10/02/20 01:01 Ovalocytes Not Reportable 10/02/20 01:01 Helmet Cells Not Reportable 10/02/20 01:01 De Guzman-[place] Bodies Not Reportable 10/02/20 01:01 [place] Rings Not Reportable 10/02/20 01:01 Obdulia Cells Not Reportable 10/02/20 01:01 Bite Cells Not Reportable 10/02/20 01:01 Crenated Cell Not Reportable 10/02/20 01:01 Elliptocytes Not Reportable 10/02/20 01:01 Acanthocytes (Spur) Not Reportable 10/02/20 01:01 Rouleaux Not Reportable 10/02/20 01:01 Hemoglobin C Crystals Not Reportable 10/02/20 01:01 Schistocytes Not Reportable 10/02/20 01:01 Malaria parasites Not Reportable 10/02/20 01:01 Shekhar Bodies Not Reportable 10/02/20 01:01 Hem Pathologist Commnt No 10/02/20 01:01 PT 14.9 Sec. (12.2-14.9) 10/04/20 14:16 INR 1.12 (0.87-1.13) 10/04/20 14:16 APTT 28.5 Sec. (24.2-36.6) 10/04/20 14:16 Thrombin Time 23.2 Sec. (15.1-19.6) H 10/02/20 01:01 D-Dimer 4280.35 ng/mlDDU (0-234) H 10/08/20 04:20 Heparin Anti-Xa Level 0.16 U.I./ml (0.3-0.7) L 10/09/20 07:15 ABG pH 7.164 (7.320-7.450) L 10/09/20 13:34 POC ABG pCO2 67.6 mmHg (32.0-48.0) H 10/09/20 13:34 POC ABG pO2 74.5 mmHg (83-108) L 10/09/20 13:34 POC ABG HCO3 23.8 10/09/20 13:34 ABG O2 Saturation 90.6 (0-100) 10/09/20 13:34 POC ABG Base Excess -6.0 10/09/20 13:34 ABG Hemoglobin 13.2 (12.0-17.5) 10/09/20 13:34 ABG Oxyhemoglobin 89.8 (94-98) L 10/09/20 13:34 ABG Methemoglobin 0.1 (0.0-1.5) 10/09/20 13:34 ABG Sodium 128.0 mmol/L (136.0-145.0) L 10/09/20 13:34 ABG Potassium 5.9 mmol/L (3.40-4.50) H 10/09/20 13:34 ABG Chloride 94.0 mmol/L (98-107) L 10/09/20 13:34 ABG Glucose 255 mg/dL (65-95) H 10/09/20 13:34 Carboxyhemoglobin 0.8 (0.5-1.5) 10/09/20 13:34 FiO2 % 100.0 10/09/20 13:34 Sodium 134 mmol/L (137-145) L 10/09/20 07:15 Potassium 5.3 mmol/L (3.6-5.0) H 10/09/20 07:15 Chloride 90.6 mmol/L (98-107) L 10/09/20 07:15 Carbon Dioxide 24 mmol/L (22-30) 10/09/20 07:15 Anion Gap 25 mmol/L 10/09/20 07:15 BUN 86 mg/dL (9-20) H 10/09/20 07:15 Creatinine 6.3 mg/dL (0.8-1.3) H 10/09/20 07:15 Estimated GFR 11 ml/min 10/09/20 07:15 BUN/Creatinine Ratio 14 % 10/09/20 07:15 Glucose 207 mg/dL (75-100) H 10/09/20 07:15 POC Glucose 197 mg/dL (70-105) H 10/09/20 11:17 Calcium 9.0 mg/dL (8.4-10.2) 10/09/20 07:15 Phosphorus 8.10 mg/dL (2.5-4.5) H 10/04/20 04:58 Ferritin > 2000.0 ng/mL (30.0-300.0) H 10/06/20 10:38 Total Bilirubin 0.30 mg/dL (0.1-1.2) 10/06/20 02:09 Direct Bilirubin < 0.2 mg/dL (0-0.2) 10/03/20 05:25 Indirect Bilirubin 0.1 mg/dL 10/03/20 05:25 AST 52 units/L (5-40) H 10/06/20 02:09 ALT 50 units/L (7-56) 10/06/20 02:09 Alkaline Phosphatase 80 units/L (35-129) 10/06/20 02:09 Lactate Dehydrogenase 786 units/L (91-180) H 10/08/20 04:20 Total Creatine Kinase 473 units/L (55-170) H 10/07/20 06:00 CK-MB (CK-2) 14.8 ng/mL (0.0-4.0) H 10/02/20 01:01 CK-MB (CK-2) Rel Index 0.5 (0-4) 10/02/20 01:01 Troponin T 0.036 ng/mL (0.00-0.029) H 10/02/20 01:01 C-Reactive Protein 28.70 mg/dL (0.00-1.30) H 10/08/20 04:20 Total Protein 5.2 g/dL (6.3-8.2) L 10/06/20 02:09 Albumin 2.3 g/dL (3.9-5) L 10/06/20 02:09 Albumin/Globulin Ratio 0.8 % 10/06/20 02:09 Triglycerides 864 mg/dL (2-149) H 10/09/20 07:15 Cholesterol 165 mg/dL (50-199) 10/02/20 01:01 LDL Cholesterol Direct TNR 10/02/20 01:01 HDL Cholesterol 31 mg/dL (40-59) L 10/02/20 01:01 Cholesterol/HDL Ratio 5.32 % 10/02/20 01:01 Procalcitonin 18.80 ng/mL (<0.15) 10/02/20 11:47 PTH Intact 140.3 pg/mL (15-65) H 10/04/20 04:58 Arterial Blood Glucose 255 mg/dL (65-95) H 10/09/20 13:34 Arterial Blood Ionized Calcium 4.4 mg/dL (4.6-5.3) L 10/09/20 13:34 Urine Color Alison (Yellow) 10/02/20 02:59 Urine Turbidity Cloudy (Clear) 10/02/20 02:59 Urine pH 5.0 (5.0-7.0) 10/02/20 02:59 Ur Specific Jordan 1.025 (1.003-1.030) 10/02/20 02:59 Urine Protein >500 mg/dL (Negative) 10/02/20 02:59 Urine Glucose (UA) 50 mg/dL (Negative) 10/02/20 02:59 Urine Ketones Neg mg/dL (Negative) 10/02/20 02:59 Urine Blood Lg (Negative) 10/02/20 02:59 Urine Nitrite Neg (Negative) 10/02/20 02:59 Urine Bilirubin Neg (Negative) 10/02/20 02:59 Urine Urobilinogen < 2.0 mg/dL (<2.0) 10/02/20 02:59 Ur Leukocyte Esterase Neg (Negative) 10/02/20 02:59 Urine WBC (Auto) 8.0 /HPF (0.0-6.0) H 10/02/20 02:59 Urine RBC (Auto) 3.0 /HPF (0.0-6.0) 10/02/20 02:59 U Epithel Cells (Auto) 2.0 /HPF (0-13.0) 10/02/20 02:59 Amorphous Crystals Few 10/02/20 02:59 Urine Mucus Few /HPF 10/02/20 02:59 Urine Creatinine 156.1 mg/dL (0.1-20.0) H 10/03/20 06:30 Urine Sodium 22 mmol/L 10/03/20 06:30 Urine Opiates Screen Negative 10/02/20 02:59 Urine Methadone Screen Negative 10/02/20 02:59 Ur Barbiturates Screen Negative 10/02/20 02:59 Ur Phencyclidine Scrn Negative 10/02/20 02:59 Ur Amphetamines Screen Negative 10/02/20 02:59 U Benzodiazepines Scrn Negative 10/02/20 02:59 Urine Cocaine Screen Negative 10/02/20 02:59 U Marijuana (THC) Screen Negative 10/02/20 02:59 Drugs of Abuse Note Disclamer 10/02/20 02:59 Plasma/Serum Alcohol < 0.01 % (0-0.07) 10/02/20 01:01 Coronavirus (PCR) Positive (Negative) A 10/02/20 Unknown Hepatitis A IgM Ab Non-reactive (NonReactive) 10/02/20 01:01 Hep Bs Antigen Non-reactive (Negative) 10/02/20 01:01 Hep B Core IgM Ab Non-reactive (NonReactive) 10/02/20 01:01 Hepatitis C Antibody Non-reactive (NonReactive) 10/02/20 01:01 Blanchard/IV: Voiding Method Indwelling Catheter Active Medications - Current Medications Current Medications: Generic Name Dose Route Start Last Admin Trade Name Freq PRN Reason Stop Dose Admin Acetaminophen 650 mg 10/02/20 05:23 10/07/20 21:42 Acetaminophen 325 Mg Tab PO 650 mg Q6H PRN Administration Pain MILD(1-3)/Fever >100.5/CLIFTON Lipase/Protease/Amylase 1 each 10/04/20 12:06 Lipase 10,500/Protease 25,000/Amylase 43,750 (Units) Dr Albarran FEEDTUBE PRN PRN For Clogged Feeding Tube Ascorbic Acid 1,000 mg 10/06/20 22:00 10/09/20 09:40 Ascorbic Acid 500 Mg Tab PO 1,000 mg BID MUSTAPHA Administration Bisacodyl 10 mg 10/02/20 05:23 Bisacodyl 10 Mg Rect Supp WA QDAY PRN Constipation Cholecalciferol 1,000 unit 10/08/20 10:00 10/09/20 09:40 Cholecalciferol (Vit D3) 1000 Unit (25 Mcg) Tab PO 1,000 unit DAILY MUSTAPHA Administration Dexamethasone 6 mg 10/03/20 04:00 10/09/20 08:31 Dexamethasone 4 Mg/Ml Vial IV 10/12/20 04:01 6 mg Q24H MUSTAPHA Administration Dextrose 50 ml 10/02/20 06:44 Dextrose 50% In Water (25gm) 50 Ml Syringe IV Q30MIN PRN Hypoglycemia Protocol Famotidine 20 mg 10/07/20 10:00 10/09/20 09:40 Famotidine 20 Mg Tab PO 20 mg DAILY MUSTAPHA Administration Fentanyl 50 mcg 10/02/20 00:53 Fentanyl 100 Mcg/2 Ml Inj IV Q10MIN PRN ANALGESIA Glycopyrrolate 1 mg 10/06/20 14:00 10/09/20 13:08 Glycopyrrolate 1 Mg Tab PO 1 mg TID MUSTAPHA Administration Heparin Sodium (Porcine) 2,000 unit 10/04/20 12:18 Heparin 10,000 Units/10 Ml Vial IV RADHA PRN hemodialysis Heparin Sodium (Porcine) 3,400 unit 10/04/20 12:51 Heparin 10,000 Units/10 Ml Vial 40 unit/kg (3400 unit) IV Q6H PRN Anti-Xa Assay < 0.1 units/ml Hydrophilic Ointment 1 applic 10/02/20 00:53 Lip Therapy Vaseline TP Q2HR PRN Dry Lips Fentanyl Citrate 2,000 mcg in 100 mls @ 4.2 mls/hr 10/02/20 01:00 10/09/20 16:41 Fentanyl Drip Premix IV 4 mcg/kg/hr TITR MUSTAPHA 16.8 mls/hr Administration Protocol 1 MCG/KG/HR Propofol 1,000 mg in 100 mls @ 2.52 mls/hr 10/02/20 03:00 10/09/20 13:41 Diprivan 10 Mg/Ml IV 0 mcg/kg/min TITR MUSTAPHA 0 mls/hr Titration Protocol 5 MCG/KG/MIN Sodium Chloride 100 mls @ 999 mls/hr 10/04/20 12:18 Nacl 0.9% IV RADHA PRN Hypotension Heparin Sodium/Sodium Chloride 25,000 unit in 500 mls @ 20 mls/hr 10/04/20 14:00 10/08/20 23:01 Heparin/ 0.45% Nacl-25,000 Unit/500 Ml IV 900 units/hr TITRATE MUSTAPHA 18 mls/hr Administration Protocol 1,000 UNITS/HR Midazolam HCl 100 mg/ Sodium 100 mls @ 1 mls/hr 10/07/20 15:00 10/09/20 05:16 Chloride IV 5 mg/hr TITR MUSTAPHA 5 mls/hr Administration Protocol 1 MG/HR Insulin Glargine 25 units 10/09/20 22:00 Insulin Glargine 100 Units/Ml SUB-Q QHS [facility] Insulin Human Lispro 0 unit 10/02/20 12:00 10/09/20 13:08 Insulin Lispro 100 Unit/Ml SUB-Q 4 unit Q6HR MUSTAPHA Administration Protocol Lactulose 20 gm 10/09/20 14:00 10/09/20 15:45 Lactulose 20 Gm/30 Ml Oral Liqd PO 10/11/20 13:59 20 gm Q4H MUSTAPHA Administration Magnesium Hydroxide 30 ml 10/02/20 05:23 Magnesium Hydroxide (Mom) Oral Liqd Udc PO Q4H PRN Constipation Metoclopramide HCl 5 mg 10/02/20 05:53 Metoclopramide 10 Mg Tab PO Q6H PRN Nausea And Vomiting Metoclopramide HCl 5 mg 10/09/20 14:00 10/09/20 15:50 Metoclopramide 10 Mg/2 Ml Inj IV 5 mg BID MUSTAPHA Administration Midazolam HCl 2 mg 10/07/20 14:02 Midazolam 2 Mg/2 Ml Inj IV Q10MIN PRN Sedation Multi-Ingred Cream/Lotion/Oil/Oint 1 applic 10/02/20 00:53 Mineral Oil/Petrolatum, White Ophth Oint 3.5 Gm OU Q4HR PRN Dry Eye(s) Ondansetron HCl 4 mg 10/02/20 05:23 Ondansetron 4 Mg/2 Ml Inj IV Q8H PRN Nausea And Vomiting Polyethylene Glycol 17 gm 10/08/20 22:00 10/08/20 22:42 Polyethylene Glycol 3350 17 Gm Powder PO 17 gm QHS [facility] Administration Promethazine HCl 25 mg 10/02/20 05:23 Promethazine 25 Mg Rect Supp [place] Q6H PRN Nausea And Vomiting Scopolamine 1 each 10/06/20 13:00 10/09/20 09:40 Scopolamine Transdermal Patch 72 Hr TD 1 each Q3D MUSTAPHA Administration Senna/Docusate Sodium 1 tab 10/02/20 22:00 10/09/20 09:40 Sennosides/Docusate Sodium 8.6/50 Mg Tab FEEDTUBE 1 tab BID MUSTAPHA Administration Simple Syrup 15 ml 10/04/20 12:06 Simple Syrup 15 Ml FEEDTUBE PRN PRN Hypoglycemia Simple Syrup 30 ml 10/04/20 12:06 Simple Syrup 15 Ml FEEDTUBE PRN PRN Hypoglycemia Sodium Bicarbonate 325 mg 10/04/20 12:06 Sodium Bicarbonate 325 Mg Tab FEEDTUBE PRN PRN For Clogged Feeding Tube Sodium Chloride 10 ml 10/02/20 10:00 10/09/20 09:40 Sodium Chloride 0.9% 10 Ml Flush Syringe IV 10 ml BID MUSTAPHA Administration Sodium Chloride 10 ml 10/02/20 05:23 10/06/20 03:48 Sodium Chloride 0.9% 10 Ml Flush Syringe IV 10 ml PRN PRN Administration LINE FLUSH Zinc Sulfate 220 mg 10/06/20 22:00 10/09/20 09:40 Zinc Sulfate 220 Mg Cap PO 220 mg BID MUSTAPHA Administration Nutrition/Malnutrition Assess - Dietary Evaluation Nutrition/Malnutrition Findings: Nutrition Notes Start: 10/02/20 07:33 Freq: Status: Active Protocol: Document 10/09/20 11:42 (Rec: 10/09/20 12:13 [id number]) Nutrition Notes Initial or Follow up Reassessment Current Diagnosis Acute Kidney Injury,Diabetes, Hypertension,Respiratory Failure Other Pertinent Diagnosis pneu, COVID Current Diet Nepro 1.8 at 40ml/hr Labs/Tests Na 134 K 5.3 BUN 86 Cr 6.3 BG 207 Pertinent Medications Propofol at 12.6 ml/hr (333 kcal) Decadron Miralax Height 5 ft 10.8 in Weight 96.9 kg [place] Body Weight (kg) 77.63 BMI 29.9 Weight change and time frame Wt change noted. Pt on HD PRN and with edema. Weight Status Overweight Subjective/Other Information Pt proned at time of visit. TF off due to potential fluoroscopy, per RN. RN reports she will turn TF on when confirmed d/c fluoroscopy . Pt was tolerating TF at goal rate. Percent of energy/protein needs met: negigible Burn Absent Trauma Absent Current % PO Negligible Minimum of two criteria No physical signs of malnutrition #1 Nutrition Diagnosis Inadequate oral intake Diagnosis Progress(for reassessment Continues documentation) Is patient on ventilator? Yes Is Patient Ambulatory and/or Out of Bed No REE-([facility]-confined to bed) [phone] Calculation Used for Recommendations Moses Foster Additional Notes Protein: (1.2-2g/kg) 101-168g Fluid: 1 ml/kcal or per MD Nutrition Intervention Change Diet Order: continue Nutrition Support: For 12 Prone: 12 h prone: Nepro 1.8 at 10 ml /hr. Flush 50 ml q4h 12 h supine: Nepro 1.8 at 70 ml/hr. Flush 75 ml q4h or per MD. Kcal 1,728 Protein (gm) 78 Fluid (mL) 698 Goal #1 Meet at least 75% of protein and kcal needs via TF Anticipated Discharge Needs: Unable to determine at this time Follow-Up By: 10/13/20 Additional Comments F/u: TF at goal and tolerance
--- NOTE | 2020-10-09 17:22 | Progress Note ---
Assessment and Plan Cultures: Blood culture no growth so far Covid PCR: Positive A/P: 50-year-old man past medical history of hypertension, diabetes admitted as COVID #COVID pneumonia: with bilateral pneumonia. Was also found to be covered in vomitus, as such concern for aspiration pneumonia. Completed initial course of ceftriaxone/azithromycin. #Acute hypoxic respiratory failure: Currently vent. Secondary to pneumonia #Diabetes: tight glycemic control for best outcomes. #OLIVIA: Renally dose antibiotics. on HD,. Recs: -Continue steroids per pulmonary to complete 10 days. -Given persistent fevers and risign white count I have re-cultured -Started vancomycin and cefepime -Check MRSA PCR. -given Actemra 10/08/2020 -Not a candidate for remdesivir due to renal failure. Thank you for the consult, we will continue to follow. Malgorzata Milligan MD [facility] ([facility]) O: [phone] F: [phone] Subjective Date of service: 10/09/20 Principal diagnosis: Ac hypoxemic resp; COVID-19; Pneumonia; OLIVIA; Ac encephalopathy; NSTEMI Interval history: Remains persistently febrile today, white count 19. Objective - Exam Narrative Exam: Physical exam deferred to reduce risk of transmission of COVID-19. Please refer to primary team's note. - Constitutional Vitals: Vital Signs Temp Pulse Resp BP Pulse Ox 100.0 F H 107 H 16 129/70 95 10/09/20 15:52 10/09/20 15:57 10/09/20 15:41 10/09/20 15:57 10/09/20 15:57 Temperature -Last 24 Hours Temperature 100.0 F Temperature 100.4 F Temperature 100.6 F Temperature 100.9 F Temperature 100.9 F Temperature 100.9 F Temperature 100.9 F Temperature 99.9 F - Labs CBC & Chem 7: 10/09/20 07:15 10/09/20 07:15 Labs: Abnormal lab results 10/08/20 10/08/20 10/09/20 Range/Units 17:51 22:35 04:00 WBC (4.5-11.0) K/mm3 MCV (84-94) fl MCH (28-32) pg Heparin Anti-Xa Level (0.3-0.7) U.I./ml ABG pH (7.320-7.450) POC ABG pCO2 (32.0-48.0) mmHg POC ABG pO2 38.5 L (83-108) mmHg ABG Oxyhemoglobin 64.5 L (94-98) ABG Sodium 126.7 L (136.0-145.0) mmol/L ABG Potassium 4.8 H (3.40-4.50) mmol/L ABG Chloride 95.0 L (98-107) mmol/L ABG Glucose 250 H (65-95) mg/dL Sodium (137-145) mmol/L Potassium (3.6-5.0) mmol/L Chloride (98-107) mmol/L BUN (9-20) mg/dL Creatinine (0.8-1.3) mg/dL Glucose (75-100) mg/dL POC Glucose 165 H 221 H (70-105) mg/dL Triglycerides (2-149) mg/dL Arterial Blood Glucose 250 H (65-95) mg/dL Arterial Blood Ionized Calcium 4.4 L (4.6-5.3) mg/dL 10/09/20 10/09/20 10/09/20 Range/Units 05:08 07:15 07:15 WBC 19.0 H (4.5-11.0) K/mm3 MCV 82 L (84-94) fl MCH 27 L (28-32) pg Heparin Anti-Xa Level (0.3-0.7) U.I./ml ABG pH (7.320-7.450) POC ABG pCO2 (32.0-48.0) mmHg POC ABG pO2 (83-108) mmHg ABG Oxyhemoglobin (94-98) ABG Sodium (136.0-145.0) mmol/L ABG Potassium (3.40-4.50) mmol/L ABG Chloride (98-107) mmol/L ABG Glucose (65-95) mg/dL Sodium 134 L (137-145) mmol/L Potassium 5.3 H (3.6-5.0) mmol/L Chloride 90.6 L (98-107) mmol/L BUN 86 H (9-20) mg/dL Creatinine 6.3 H (0.8-1.3) mg/dL Glucose 207 H (75-100) mg/dL POC Glucose 228 H (70-105) mg/dL Triglycerides 864 H (2-149) mg/dL Arterial Blood Glucose (65-95) mg/dL Arterial Blood Ionized Calcium (4.6-5.3) mg/dL 10/09/20 10/09/20 10/09/20 Range/Units 07:15 11:17 13:34 WBC (4.5-11.0) K/mm3 MCV (84-94) fl MCH (28-32) pg Heparin Anti-Xa Level 0.16 L (0.3-0.7) U.I./ml ABG pH 7.164 L (7.320-7.450) POC ABG pCO2 67.6 H (32.0-48.0) mmHg POC ABG pO2 74.5 L (83-108) mmHg ABG Oxyhemoglobin 89.8 L (94-98) ABG Sodium 128.0 L (136.0-145.0) mmol/L ABG Potassium 5.9 H (3.40-4.50) mmol/L ABG Chloride 94.0 L (98-107) mmol/L ABG Glucose 255 H (65-95) mg/dL Sodium (137-145) mmol/L Potassium (3.6-5.0) mmol/L Chloride (98-107) mmol/L BUN (9-20) mg/dL Creatinine (0.8-1.3) mg/dL Glucose (75-100) mg/dL POC Glucose 197 H (70-105) mg/dL Triglycerides (2-149) mg/dL Arterial Blood Glucose 255 H (65-95) mg/dL Arterial Blood Ionized Calcium 4.4 L (4.6-5.3) mg/dL
--- NOTE | 2020-10-09 18:03 | XRay Report ---
XR chest 1V ap INDICATION / CLINICAL INFORMATION: follow up respiratory failure. COMPARISON: Radiograph from yesterday. FINDINGS: SUPPORT DEVICES: Unchanged. HEART / MEDIASTINUM: Unchanged. LUNGS / PLEURA: Diffuse bilateral airspace disease is not significantly changed. No pneumothorax. ADDITIONAL FINDINGS: No significant additional findings. IMPRESSION: 1. No significant interval change. Signer Name: Oren Scott MD Signed: 10/09/2020 5:58 PM Workstation Name: [id number]
[2020-10-09 19:32] LABS: Bacteria,Urine 2+ /HPF (Negative); Bilirubin,Urine NEG (Negative); Blood,Urine MOD (Negative); Color,Urine Amber (Yellow); Mucus,Urine FEW /HPF; Urobilinogen,Urine < 2.0 mg/dL (<2.0)
[2020-10-09] MEDS: CEFEPIME/NS 2 GM/100 ML 2 GM/100 ML BAG IV SCH (20:15)
[2020-10-09] MEDS: POLYETHYLENE GLYCOL 3350 17 GM POWDER PO SCH (21:49)
[2020-10-09] MEDS ORDERED: INSULIN GLARGINE 100 UNITS/ML SUB-Q SCH (22:00)
[2020-10-10] MEDS ORDERED: SODIUM BICARB 8.4% 50 MEQ/50 ML SYRINGE IV ONE ×3 (00:59→13:00)
[2020-10-10] MEDS: fentaNYL DRIP Premix 2,000 MCG/100 ML BAG IV SCH ×5 (01:43→22:37)
[2020-10-10] MEDS: MIDAZOLAM 100 MG in SODIUM CHLORIDE 0.9% 80 ML IV SCH ×2 (01:45→22:36)
[2020-10-10] MEDS: HEPARIN/ 0.45% NACL DRIP 25,000 UNIT/500 ML BAG IV SCH (01:46)
--- NOTE | 2020-10-10 02:34 | XRay Report ---
CHEST - 1 VIEW INDICATION: hypoxia COMPARISON: Yesterday FINDINGS: SUPPORT DEVICES: Stable support device positioning. HEART: Stable cardiomediastinal silhouette. LUNGS/PLEURA: Persistent mild patchy multifocal airspace disease. ADDITIONAL FINDINGS: None. IMPRESSION: Unchanged exam. Signer Name: Perez Merida MD Signed: 10/10/2020 2:30 AM Workstation Name: [id number]
[2020-10-10] MEDS ORDERED: dilTIAZem 25 MG/5 ML INJ IV ONE (03:27)
[2020-10-10] MEDS: dexAMETHasone 4 MG/ML VIAL IV SCH (03:36)
[2020-10-10] MEDS: INSULIN LISPRO 100 UNIT/ML SUB-Q SCH ×4 (05:29→18:10)
[2020-10-10 05:31] LABS: Hematocrit 37.4 % (35.5-45.6); Hemoglobin 12.1 gm/dl (11.8-15.2); Mean Corpuscular HGB Conc 32 % (32-34); Mean Corpuscular Volume 83 fl (84-94); Platelet Count 198 K/mm3 (140-440); Red Blood Count 4.49 M/mm3 (3.65-5.03); Red Cell Distribution Width 14.9 % (13.2-15.2)
[2020-10-10 05:51] LABS: Albumin 2.5 g/dL (3.9-5); C-Reactive Protein 9.9 mg/dL (0.00-1.30); Calcium 9.1 mg/dL (8.4-10.2)
[2020-10-10] MEDS: GLYCOPYRROLATE 1 MG TAB PO SCH ×3 (08:34→22:10)
[2020-10-10] MEDS ORDERED: VANCOMYCIN PHARMACY TO DOSE IV SCH (09:00)
[2020-10-10] MEDS ORDERED: VANCOMYCIN 2,000 MG in SODIUM CHLORIDE 0.9% 500 ML 500 ML IV ONE (09:00)
--- NOTE | 2020-10-10 09:22 | Electrocardiograph Report ---
[facility] Test Date: 2020-10-10 Test Time: 03:46:22 Pat Name: LUCERO SANDOVAL Department: Room: A252 1 Gender: M Inspector [place]: RAMON : 1970 Requested By: MANDA GLEASON Order Number: [id number] Reading MD: Noé Morris Measurements Intervals [place] Rate: 132 P: 62 NE: 134 QRS: 23 QRSD: 86 T: 68 QT: 326 QTc: 450 Interpretive Statements Sinus tachycardia with irregular rate Borderline ST depression, lateral leads Compared to ECG 10/02/2020 02:51:13 ST (T wave) deviation now present Ventricular premature complex(es) no longer present Electronically Signed On 10-10-2020 9:22:13 EDT by Noé Morris
--- NOTE | 2020-10-10 09:29 | Progress Note ---
Assessment and Plan 1. Acute kidney injury: OLIVIA in the setting of severe Covid infection. Received IV contrast 10/02. FeNa low. Renal US negative for hydro. Monitor renal function. BUN and Creatinine level remains high. UOP low. Avoid nephrotoxic agents. Meds dosage based on GFR. Monitor for HPLC CHEMIST needs. Patient was started on hemodialysis due to worsening renal function. Hemodialysis: 10/04, 10/06, 10/08, 10/09. HD today. 2. FEN: Hyperkalemia, meds ordered, HD today, monitor. Low K bath with HD. Monitor lytes and volume status. 3. Acute respiratory failure with hypoxemia: 2/2 Covid PNA. On vent, wean as tolerated. 4. Covid PNA: Followed by ID. 5. Acute encephalopathy, POA: Multifactorial. CT brain remarkable for left frontal hypodensity. EEG suggestive of encephalopathy. 6. Rhabdomyolysis: CK level is better. 7. Elevated ALT & AST: Trend. 8. DM type 2: Monitor. Subjective: Patient was seen and examined at the bedside. D/w ICU [employer] TE[employer]ER. Examination: General appearance: well-developed, appears stated age, intubated on vent, FiO2 100% HEENT: atraumatic Neck: Trachea midline Respiratory: MV sounds Heart: S1S2, regular Abdomen: soft, BS heard Integumentary: no obvious rash Neurologic: not responding Ext: no edema : Blanchard catheter Hemodialysis access: R IJ temp catheter Subjective Date of service: 10/10/20 Principal diagnosis: Ac hypoxemic resp; COVID-19; Pneumonia; OLIVIA; Ac encephalopathy; NSTEMI Objective - Vital Signs Vital signs: Vital Signs - 12hr 10/09/20 10/09/20 10/09/20 21:30 21:40 21:41 Temperature Pulse Rate 109 H 116 H 106 H Pulse Rate [ From Monitor] Respiratory 13 13 Rate Blood Pressure 96/58 72/44 96/58 O2 Sat by Pulse 97 81 L 97 Oximetry O2 Sat by Pulse Oximetry [ Anterior Bilateral Throughout] 10/09/20 10/09/20 10/09/20 21:51 22:00 22:11 Temperature Pulse Rate 109 H 104 H 106 H Pulse Rate [ From Monitor] Respiratory 13 13 13 Rate Blood Pressure 109/63 109/63 120/64 O2 Sat by Pulse 97 96 95 Oximetry O2 Sat by Pulse Oximetry [ Anterior Bilateral Throughout] 10/09/20 10/09/20 10/09/20 22:21 22:25 22:30 Temperature 101.1 F H Pulse Rate 103 H 103 H 101 H Pulse Rate [ From Monitor] Respiratory 13 15 14 Rate Blood Pressure 116/62 116/62 99/66 O2 Sat by Pulse 95 96 Oximetry O2 Sat by Pulse 96 Oximetry [ Anterior Bilateral Throughout] 10/09/20 10/09/20 10/09/20 22:40 22:45 22:50 Temperature Pulse Rate 102 H 106 H 103 H Pulse Rate [ From Monitor] Respiratory 14 13 Rate Blood Pressure 102/63 102/63 109/69 O2 Sat by Pulse 94 93 Oximetry O2 Sat by Pulse Oximetry [ Anterior Bilateral Throughout] 10/09/20 10/09/20 10/09/20 23:00 23:10 23:15 Temperature Pulse Rate 104 H 105 H 103 H Pulse Rate [ From Monitor] Respiratory 13 20 Rate Blood Pressure 109/69 102/66 102/66 O2 Sat by Pulse 93 89 Oximetry O2 Sat by Pulse Oximetry [ Anterior Bilateral Throughout] 10/09/20 10/09/20 10/09/20 23:21 23:30 23:31 Temperature Pulse Rate 116 H 99 H 107 H Pulse Rate [ From Monitor] Respiratory 21 22 Rate Blood Pressure 102/66 92/53 92/53 O2 Sat by Pulse 78 L 85 Oximetry O2 Sat by Pulse Oximetry [ Anterior Bilateral Throughout] 10/09/20 10/09/20 10/09/20 23:40 23:45 23:50 Temperature Pulse Rate 100 H 109 H 115 H Pulse Rate [ From Monitor] Respiratory 25 H 25 H Rate Blood Pressure 113/70 113/70 98/77 O2 Sat by Pulse 77 L 80 L Oximetry O2 Sat by Pulse Oximetry [ Anterior Bilateral Throughout] 10/09/20 10/10/20 10/10/20 23:53 00:00 00:01 Temperature 100 F H Pulse Rate 111 H 79 Pulse Rate [ 106 H From Monitor] Respiratory 27 H 28 H Rate Blood Pressure 98/77 136/68 O2 Sat by Pulse 98 66 L Oximetry O2 Sat by Pulse Oximetry [ Anterior Bilateral Throughout] 10/10/20 10/10/20 10/10/20 00:11 00:15 00:21 Temperature Pulse Rate 124 H 112 H 121 H Pulse Rate [ From Monitor] Respiratory 21 21 Rate Blood Pressure 93/36 136/68 110/80 O2 Sat by Pulse 75 L Oximetry O2 Sat by Pulse Oximetry [ Anterior Bilateral Throughout] 10/10/20 10/10/20 10/10/20 00:30 00:40 00:45 Temperature 101.3 F H Pulse Rate 121 H 125 H 118 H Pulse Rate [ From Monitor] Respiratory 19 23 22 Rate Blood Pressure 101/60 93/36 95/66 O2 Sat by Pulse 77 L 83 L Oximetry O2 Sat by Pulse 86 Oximetry [ Anterior Bilateral Throughout] 10/10/20 10/10/20 10/10/20 00:51 01:00 01:11 Temperature Pulse Rate 110 H 114 H 116 H Pulse Rate [ From Monitor] Respiratory 23 21 17 Rate Blood Pressure 95/66 104/65 118/67 O2 Sat by Pulse 86 86 87 Oximetry O2 Sat by Pulse Oximetry [ Anterior Bilateral Throughout] 10/10/20 10/10/20 10/10/20 01:20 01:30 01:40 Temperature Pulse Rate 116 H 119 H 116 H Pulse Rate [ From Monitor] Respiratory 20 20 17 Rate Blood Pressure 114/61 115/64 107/60 O2 Sat by Pulse 88 89 88 Oximetry O2 Sat by Pulse Oximetry [ Anterior Bilateral Throughout] 10/10/20 10/10/20 10/10/20 01:50 02:01 02:10 Temperature Pulse Rate 110 H 117 H 112 H Pulse Rate [ From Monitor] Respiratory 19 19 22 Rate Blood Pressure 100/68 100/64 118/82 O2 Sat by Pulse 88 88 88 Oximetry O2 Sat by Pulse Oximetry [ Anterior Bilateral Throughout] 10/10/20 10/10/20 10/10/20 02:20 02:30 02:40 Temperature Pulse Rate 118 H 120 H 124 H Pulse Rate [ From Monitor] Respiratory 19 20 16 Rate Blood Pressure 108/75 117/70 98/67 O2 Sat by Pulse 89 88 85 Oximetry O2 Sat by Pulse Oximetry [ Anterior Bilateral Throughout] 10/10/20 10/10/20 10/10/20 02:50 03:01 03:11 Temperature Pulse Rate 126 H 128 H 131 H Pulse Rate [ From Monitor] Respiratory 13 16 20 Rate Blood Pressure 91/67 90/66 113/68 O2 Sat by Pulse 86 87 88 Oximetry O2 Sat by Pulse Oximetry [ Anterior Bilateral Throughout] 10/10/20 10/10/20 10/10/20 03:20 03:28 03:31 Temperature 102.9 F H Pulse Rate 132 H 132 H Pulse Rate [ From Monitor] Respiratory 17 17 Rate Blood Pressure 106/73 112/65 O2 Sat by Pulse 88 88 Oximetry O2 Sat by Pulse Oximetry [ Anterior Bilateral Throughout] 10/10/20 10/10/20 10/10/20 03:40 03:50 03:51 Temperature Pulse Rate 136 H 121 H 138 H Pulse Rate [ From Monitor] Respiratory 17 19 Rate Blood Pressure 97/65 106/72 106/72 O2 Sat by Pulse 87 87 Oximetry O2 Sat by Pulse Oximetry [ Anterior Bilateral Throughout] 10/10/20 10/10/20 10/10/20 04:00 04:10 04:20 Temperature Pulse Rate 119 H 127 H 128 H Pulse Rate [ 130 H From Monitor] Respiratory 18 20 18 Rate Blood Pressure 102/58 106/62 119/62 O2 Sat by Pulse 87 87 87 Oximetry O2 Sat by Pulse Oximetry [ Anterior Bilateral Throughout] 10/10/20 10/10/20 10/10/20 04:30 04:40 04:50 Temperature Pulse Rate 129 H 108 H 108 H Pulse Rate [ From Monitor] Respiratory 20 16 14 Rate Blood Pressure 107/65 107/57 114/55 O2 Sat by Pulse 88 88 88 Oximetry O2 Sat by Pulse Oximetry [ Anterior Bilateral Throughout] 10/10/20 10/10/20 10/10/20 05:00 05:10 05:20 Temperature Pulse Rate 110 H 110 H 113 H Pulse Rate [ From Monitor] Respiratory 18 15 17 Rate Blood Pressure 107/55 105/58 97/58 O2 Sat by Pulse 89 89 89 Oximetry O2 Sat by Pulse Oximetry [ Anterior Bilateral Throughout] 10/10/20 10/10/20 10/10/20 05:30 05:40 05:50 Temperature Pulse Rate 113 H 115 H 113 H Pulse Rate [ From Monitor] Respiratory 17 17 18 Rate Blood Pressure 109/58 100/58 110/62 O2 Sat by Pulse 89 89 88 Oximetry O2 Sat by Pulse Oximetry [ Anterior Bilateral Throughout] 10/10/20 10/10/20 10/10/20 06:01 06:10 06:20 Temperature Pulse Rate 111 H 115 H 112 H Pulse Rate [ From Monitor] Respiratory 21 13 15 Rate Blood Pressure 108/57 98/63 93/60 O2 Sat by Pulse 87 88 90 Oximetry O2 Sat by Pulse Oximetry [ Anterior Bilateral Throughout] 10/10/20 10/10/20 10/10/20 06:30 06:40 06:51 Temperature Pulse Rate 112 H 111 H 119 H Pulse Rate [ From Monitor] Respiratory 20 21 17 Rate Blood Pressure 91/67 95/68 95/68 O2 Sat by Pulse 90 90 92 Oximetry O2 Sat by Pulse Oximetry [ Anterior Bilateral Throughout] 10/10/20 10/10/20 10/10/20 07:00 07:10 07:20 Temperature 101.7 F H Pulse Rate 116 H 117 H 119 H Pulse Rate [ From Monitor] Respiratory 13 15 15 Rate Blood Pressure 103/62 101/62 111/62 O2 Sat by Pulse 89 90 89 Oximetry O2 Sat by Pulse Oximetry [ Anterior Bilateral Throughout] 10/10/20 10/10/20 10/10/20 07:30 07:40 07:50 Temperature Pulse Rate 114 H 114 H 116 H Pulse Rate [ From Monitor] Respiratory 14 14 14 Rate Blood Pressure 101/60 108/61 106/64 O2 Sat by Pulse 89 89 89 Oximetry O2 Sat by Pulse Oximetry [ Anterior Bilateral Throughout] 10/10/20 10/10/20 10/10/20 08:00 08:10 08:20 Temperature 101.5 F H Pulse Rate 115 H 118 H 111 H Pulse Rate [ From Monitor] Respiratory 13 14 18 Rate Blood Pressure 116/56 112/62 95/55 O2 Sat by Pulse 89 89 86 Oximetry O2 Sat by Pulse Oximetry [ Anterior Bilateral Throughout] 10/10/20 10/10/20 08:30 08:37 Temperature Pulse Rate 111 H Pulse Rate [ 112 H From Monitor] Respiratory 14 19 Rate Blood Pressure 101/59 O2 Sat by Pulse 88 88 Oximetry O2 Sat by Pulse Oximetry [ Anterior Bilateral Throughout] - Lab 10/10/20 04:47 10/10/20 04:47 Most recent lab results ABG pH 7.121 (7.320-7.450) L 10/09/20 21:00 ABG O2 Saturation 91.5 (0-100) 10/09/20 21:00 Calcium 9.1 mg/dL (8.4-10.2) 10/10/20 04:47 Phosphorus 8.10 mg/dL (2.5-4.5) H 10/04/20 04:58 Urine Creatinine 156.1 mg/dL (0.1-20.0) H 10/03/20 06:30 Urine Sodium 22 mmol/L 10/03/20 06:30 Medications & Allergies - Medications Allergies/Adverse Reactions: Allergies No Known Allergies Allergy (Verified 10/02/20 01:44) Active Medications: Generic Name Dose Route Start Last Admin Trade Name Freq PRN Reason Stop Dose Admin Acetaminophen 650 mg 10/02/20 05:23 10/07/20 21:42 Acetaminophen 325 Mg Tab PO 650 mg Q6H PRN Administration Pain MILD(1-3)/Fever >100.5/[place] Lipase/Protease/Amylase 1 each 10/04/20 12:06 Lipase 10,500/Protease 25,000/Amylase 43,750 (Units) Dr Albarran FEEDTUBE PRN PRN For Clogged Feeding Tube Ascorbic Acid 1,000 mg 10/06/20 22:00 10/09/20 21:50 Ascorbic Acid 500 Mg Tab PO 1,000 mg BID MUSTAPHA Administration Bisacodyl 10 mg 10/02/20 05:23 Bisacodyl 10 Mg Rect Supp VT QDAY PRN Constipation Cholecalciferol 1,000 unit 10/08/20 10:00 10/09/20 09:40 Cholecalciferol (Vit D3) 1000 Unit (25 Mcg) Tab PO 1,000 unit DAILY MUSTAPHA Administration Dexamethasone 6 mg 10/03/20 04:00 10/10/20 03:36 Dexamethasone 4 Mg/Ml Vial IV 10/12/20 04:01 6 mg Q24H MUSTAPHA Administration Dextrose 50 ml 10/02/20 06:44 Dextrose 50% In Water (25gm) 50 Ml Syringe IV Q30MIN PRN Hypoglycemia Protocol Famotidine 20 mg 10/07/20 10:00 10/09/20 09:40 Famotidine 20 Mg Tab PO 20 mg DAILY MUSTAPHA Administration Fentanyl 50 mcg 10/02/20 00:53 Fentanyl 100 Mcg/2 Ml Inj IV Q10MIN PRN ANALGESIA Glycopyrrolate 1 mg 10/06/20 14:00 10/10/20 08:34 Glycopyrrolate 1 Mg Tab PO 1 mg TID MUSTAPHA Administration Heparin Sodium (Porcine) 2,000 unit 10/04/20 12:18 Heparin 10,000 Units/10 Ml Vial IV RADHA PRN hemodialysis Heparin Sodium (Porcine) 3,400 unit 10/04/20 12:51 Heparin 10,000 Units/10 Ml Vial 40 unit/kg (3400 unit) IV Q6H PRN Anti-Xa Assay < 0.1 units/ml Hydrophilic Ointment 1 applic 10/02/20 00:53 Lip Therapy Vaseline TP Q2HR PRN Dry Lips Fentanyl Citrate 2,000 mcg in 100 mls @ 4.2 mls/hr 10/02/20 01:00 10/10/20 05:30 Fentanyl Drip Premix IV 4 mcg/kg/hr TITR MUSTAPHA 16.8 mls/hr Administration Protocol 1 MCG/KG/HR Sodium Chloride 100 mls @ 999 mls/hr 10/04/20 12:18 Nacl 0.9% IV RADHA PRN Hypotension Heparin Sodium/Sodium Chloride 25,000 unit in 500 mls @ 20 mls/hr 10/04/20 14:00 10/10/20 06:32 Heparin/ 0.45% Nacl-25,000 Unit/500 Ml IV 1,000 units/hr TITRATE MUSTAPHA 20 mls/hr Titration Protocol 1,000 UNITS/HR Midazolam HCl 100 mg/ Sodium 100 mls @ 1 mls/hr 10/07/20 15:00 10/10/20 01:45 Chloride IV 5 mg/hr TITR MUSTAPHA 5 mls/hr Administration Protocol 1 MG/HR Cefepime HCl 2 gm in 100 mls @ 200 mls/hr 10/09/20 18:00 10/09/20 20:15 Cefepime/Ns 2 Gm/100 Ml IV 200 mls/hr Q24H MUSTAPHA Administration Protocol Propofol 1,000 mg in 100 mls @ 2.907 mls/hr 10/10/20 02:00 10/10/20 04:30 Diprivan 10 Mg/Ml IV 10 mcg/kg/min TITR MUSTAPHA 5.814 mls/hr Titration Protocol 5 MCG/KG/MIN Vancomycin HCl 2,000 mg/ 540 mls @ 250 mls/hr 10/10/20 09:00 Sodium Chloride IV 10/10/20 11:09 ONCE ONE Insulin Glargine 30 units 10/10/20 22:00 Insulin Glargine 100 Units/Ml SUB-Q QHS [facility] Insulin Human Lispro 0 unit 10/02/20 12:00 10/10/20 05:30 Insulin Lispro 100 Unit/Ml SUB-Q 4 unit Q6HR [facility] Administration Protocol Magnesium Hydroxide 30 ml 10/02/20 05:23 Magnesium Hydroxide (Mom) Oral Liqd Udc PO Q4H PRN Constipation Metoclopramide HCl 5 mg 10/02/20 05:53 Metoclopramide 10 Mg Tab PO Q6H PRN Nausea And Vomiting Metoclopramide HCl 5 mg 10/09/20 14:00 10/09/20 21:49 Metoclopramide 10 Mg/2 Ml Inj IV 5 mg BID MUSTAPHA Administration Midazolam HCl 2 mg 10/07/20 14:02 10/09/20 21:48 Midazolam 2 Mg/2 Ml Inj IV 2 mg Q10MIN PRN Administration Sedation Multi-Ingred Cream/Lotion/Oil/Oint 1 applic 10/02/20 00:53 Mineral Oil/Petrolatum, White Ophth Oint 3.5 Gm OU Q4HR PRN Dry Eye(s) Ondansetron HCl 4 mg 10/02/20 05:23 Ondansetron 4 Mg/2 Ml Inj IV Q8H PRN Nausea And Vomiting Polyethylene Glycol 17 gm 10/08/20 22:00 10/09/20 21:49 Polyethylene Glycol 3350 17 Gm Powder PO 17 gm QHS MUSTAPHA Administration Promethazine HCl 25 mg 10/02/20 05:23 Promethazine 25 Mg Rect Supp VT Q6H PRN Nausea And Vomiting Scopolamine 1 each 10/06/20 13:00 10/09/20 09:40 Scopolamine Transdermal Patch 72 Hr TD 1 each Q3D MUSTAPHA Administration Senna/Docusate Sodium 1 tab 10/02/20 22:00 10/09/20 21:48 Sennosides/Docusate Sodium 8.6/50 Mg Tab FEEDTUBE 1 tab BID MUSTAPHA Administration Simple Syrup 15 ml 10/04/20 12:06 Simple Syrup 15 Ml FEEDTUBE PRN PRN Hypoglycemia Simple Syrup 30 ml 10/04/20 12:06 Simple Syrup 15 Ml FEEDTUBE PRN PRN Hypoglycemia Sodium Bicarbonate 325 mg 10/04/20 12:06 Sodium Bicarbonate 325 Mg Tab FEEDTUBE PRN PRN For Clogged Feeding Tube Sodium Chloride 10 ml 10/02/20 10:00 10/09/20 09:40 Sodium Chloride 0.9% 10 Ml Flush Syringe IV 10 ml BID MUSTAPHA Administration Sodium Chloride 10 ml 10/02/20 05:23 10/06/20 03:48 Sodium Chloride 0.9% 10 Ml Flush Syringe IV 10 ml PRN PRN Administration LINE FLUSH Zinc Sulfate 220 mg 10/06/20 22:00 10/09/20 21:53 Zinc Sulfate 220 Mg Cap PO 220 mg BID MUSTAPHA Administration
[2020-10-10] MEDS ORDERED: INSULIN REGULAR, HUMAN 100 UNITS/1 ML IV ONE (10:00)
[2020-10-10] MEDS: SENNOSIDES/DOCUSATE SODIUM 8.6/50 MG TAB FEEDTUBE SCH (10:31)
[2020-10-10] MEDS: METOCLOPRAMIDE 10 MG/2 ML INJ IV SCH ×2 (10:31→22:09)
[2020-10-10] MEDS: ASCORBIC ACID 500 MG TAB PO SCH ×2 (10:31→22:10)
[2020-10-10] MEDS: FAMOTIDINE 20 MG TAB PO SCH (10:31)
[2020-10-10] MEDS: CHOLECALCIFEROL (VIT D3) 1000 UNIT (25 mcg) TAB PO SCH (10:31)
[2020-10-10] MEDS: ZINC SULFATE 220 MG CAP PO SCH ×2 (10:31→22:09)
[2020-10-10] MEDS: ACETAMINOPHEN 325 MG TAB PO PRN (10:32)
[2020-10-10] MEDS ORDERED: NORepinephrine/NS 4 MG-250 ML 4 MG/250 ML BAG IV ONE (11:28)
[2020-10-10] MEDS ORDERED: NORepinephrine/NS 4 MG-250 ML 4 MG/250 ML BAG IV SCH (12:00)
--- NOTE | 2020-10-10 12:31 | Progress Note ---
Assessment and Plan Acute hypoxemic respiratory failure on MVS COVID-19 infection Bilateral pneumonia Acute kidney injury Acute toxic metabolic encephalopathy Rhabdomyolysis Elevated serum inflammatory markers to include the D-dimers as well as ferritin level Non-ST elevation myocardial infarction Oropharyngeal dysphagia - lighten sedation to aid spontaneous minute ventilation - begin IV bicarbonate drip to try and keep pH >/= 7.20 - discontinue laxatives as now with good BM - for HD/UF today - repeat ABG at 9pm tonight and address - continue proning - continue HD/UF for toxin and volume clearance - continue care as below otherwise; - continue scopolamine and robinul for copious non-bloody secretions - continue Daily SAT and SBT assessment as tolerated - continue to wean supplemental oxygen for target O2 sat's > 90% acutely - VAP bundle addressed - continue lung protective strategies - continue bronchodilators with pulmonary hygiene per RT - wean per pulmonary driven protocols otherwise - continue accuchecks with glycemic control per SSI (While critically ill target blood glucose of 140-180 mg/dL; avoid hypoglycemia) - sedation prn for target RASS 0 to -1 - avoid nephrotoxins, renally dose all medications - continue to avoid benzodiazepine's, reduce the possibility of delirium - complete AB's per ID rec's - prn analgesia per CPOT score - Maintenance of sleep-wake cycle, avoid delirium - continue enteral nutritional support at goal rate as tolerated - G.I. & VTE prophylaxis - PT/OT/ROM exercises - continue mobility protocols for pressure ulcer prophylaxis - Monitor hemodynamics closely - continue other care per attending / other consultants - discharge planning ongoing concurrently COVID SPECIFIC INTERVENTIONS - To receive Actemra - Remdesivir as per ID/Pulmonary developed protocols (not a candidate) - continue systemic steroids for severe COVID-19 infection empirically - follow repeat COVID tests results - zinc and vitamin C supplementation - Monitor inflammatory markers per facility protocol - ferritin, Ddimer, CRP - therapeutic anticoagulation per system Protocol based on d-dimer and clinical considerations - Continue contact and airborne isolation .... Re-evaluate in am & prn CONDITION: CRITICAL PROGNOSIS: GUARDED CODE STATUS: FULL CODE The high probability of a clinically significant, sudden or life-threatening deterioration of the [respiratory, cardiovascular, renal & neurologic] system(s) required my full and direct attention, intervention and personal management. The aggregate critical care time was [33] minutes without overlap. Time includes spent on; [x] Data Review and interpretation [x] Patient assessment and monitoring of vital signs [x] Documentation [x] Medication orders and management Subjective Date of service: 10/10/20 Principal diagnosis: Ac hypoxemic resp; COVID-19; Pneumonia; OLIVIA; Ac encephalopathy; NSTEMI Interval history: Patient is seen today for: Acute hypoxemic respiratory; COVID-19 infection; Pneumonia; OLIVIA; Acute toxic metabolic encephalopathy; NSTEMI Seen and examined at bedside; 24hour events reviewed; nursing and respiratory care staff consulted; no adverse overnight events reported to me; resting in bed; remains on MVS; hypoxemic and not tolerating conventional ventilation; now on ARDS; + hypercapnia but oxygenation 88-91% now (was in 60's on conventional mode) Objective Vital Signs - 12hr 10/10/20 10/10/20 10/10/20 00:40 00:45 00:51 Temperature 101.3 F H Pulse Rate 125 H 118 H 110 H Pulse Rate [ From Monitor] Respiratory 23 22 23 Rate Blood Pressure 93/36 95/66 95/66 O2 Sat by Pulse 83 L 86 Oximetry O2 Sat by Pulse 86 Oximetry [ Anterior Bilateral Throughout] 10/10/20 10/10/20 10/10/20 01:00 01:11 01:20 Temperature Pulse Rate 114 H 116 H 116 H Pulse Rate [ From Monitor] Respiratory 21 17 20 Rate Blood Pressure 104/65 118/67 114/61 O2 Sat by Pulse 86 87 88 Oximetry O2 Sat by Pulse Oximetry [ Anterior Bilateral Throughout] 10/10/20 10/10/20 10/10/20 01:30 01:40 01:50 Temperature Pulse Rate 119 H 116 H 110 H Pulse Rate [ From Monitor] Respiratory 20 17 19 Rate Blood Pressure 115/64 107/60 100/68 O2 Sat by Pulse 89 88 88 Oximetry O2 Sat by Pulse Oximetry [ Anterior Bilateral Throughout] 10/10/20 10/10/20 10/10/20 02:01 02:10 02:20 Temperature Pulse Rate 117 H 112 H 118 H Pulse Rate [ From Monitor] Respiratory 19 22 19 Rate Blood Pressure 100/64 118/82 108/75 O2 Sat by Pulse 88 88 89 Oximetry O2 Sat by Pulse Oximetry [ Anterior Bilateral Throughout] 10/10/20 10/10/20 10/10/20 02:30 02:40 02:50 Temperature Pulse Rate 120 H 124 H 126 H Pulse Rate [ From Monitor] Respiratory 20 16 13 Rate Blood Pressure 117/70 98/67 91/67 O2 Sat by Pulse 88 85 86 Oximetry O2 Sat by Pulse Oximetry [ Anterior Bilateral Throughout] 10/10/20 10/10/20 10/10/20 03:01 03:11 03:20 Temperature Pulse Rate 128 H 131 H 132 H Pulse Rate [ From Monitor] Respiratory 16 20 17 Rate Blood Pressure 90/66 113/68 106/73 O2 Sat by Pulse 87 88 88 Oximetry O2 Sat by Pulse Oximetry [ Anterior Bilateral Throughout] 10/10/20 10/10/20 10/10/20 03:28 03:31 03:40 Temperature 102.9 F H Pulse Rate 132 H 136 H Pulse Rate [ From Monitor] Respiratory 17 17 Rate Blood Pressure 112/65 97/65 O2 Sat by Pulse 88 87 Oximetry O2 Sat by Pulse Oximetry [ Anterior Bilateral Throughout] 10/10/20 10/10/20 10/10/20 03:50 03:51 04:00 Temperature Pulse Rate 121 H 138 H 119 H Pulse Rate [ 130 H From Monitor] Respiratory 19 18 Rate Blood Pressure 106/72 106/72 102/58 O2 Sat by Pulse 87 87 Oximetry O2 Sat by Pulse Oximetry [ Anterior Bilateral Throughout] 10/10/20 10/10/20 10/10/20 04:10 04:20 04:30 Temperature Pulse Rate 127 H 128 H 129 H Pulse Rate [ From Monitor] Respiratory 20 18 20 Rate Blood Pressure 106/62 119/62 107/65 O2 Sat by Pulse 87 87 88 Oximetry O2 Sat by Pulse Oximetry [ Anterior Bilateral Throughout] 10/10/20 10/10/20 10/10/20 04:40 04:50 05:00 Temperature Pulse Rate 108 H 108 H 110 H Pulse Rate [ From Monitor] Respiratory 16 14 18 Rate Blood Pressure 107/57 114/55 107/55 O2 Sat by Pulse 88 88 89 Oximetry O2 Sat by Pulse Oximetry [ Anterior Bilateral Throughout] 10/10/20 10/10/20 10/10/20 05:10 05:20 05:30 Temperature Pulse Rate 110 H 113 H 113 H Pulse Rate [ From Monitor] Respiratory 15 17 17 Rate Blood Pressure 105/58 97/58 109/58 O2 Sat by Pulse 89 89 89 Oximetry O2 Sat by Pulse Oximetry [ Anterior Bilateral Throughout] 10/10/20 10/10/2010/10/21 05:40 05:50 06:01 Temperature Pulse Rate 115 H 113 H 111 H Pulse Rate [ From Monitor] Respiratory 17 18 21 Rate Blood Pressure 100/58 110/62 108/57 O2 Sat by Pulse 89 88 87 Oximetry O2 Sat by Pulse Oximetry [ Anterior Bilateral Throughout] 10/10/20 10/10/20 10/10/20 06:10 06:20 06:30 Temperature Pulse Rate 115 H 112 H 112 H Pulse Rate [ From Monitor] Respiratory 13 15 20 Rate Blood Pressure 98/63 93/60 91/67 O2 Sat by Pulse 88 90 90 Oximetry O2 Sat by Pulse Oximetry [ Anterior Bilateral Throughout] 10/10/20 10/10/20 10/10/20 06:40 06:51 07:00 Temperature 101.7 F H Pulse Rate 111 H 119 H 116 H Pulse Rate [ From Monitor] Respiratory 21 17 13 Rate Blood Pressure 95/68 95/68 103/62 O2 Sat by Pulse 90 92 89 Oximetry O2 Sat by Pulse Oximetry [ Anterior Bilateral Throughout] 10/10/20 10/10/20 10/10/20 07:10 07:20 07:30 Temperature Pulse Rate 117 H 119 H 114 H Pulse Rate [ From Monitor] Respiratory 15 15 14 Rate Blood Pressure 101/62 111/62 101/60 O2 Sat by Pulse 90 89 89 Oximetry O2 Sat by Pulse Oximetry [ Anterior Bilateral Throughout] 10/10/20 10/10/20 10/10/20 07:40 07:50 08:00 Temperature 101.5 F H Pulse Rate 114 H 116 H 115 H Pulse Rate [ From Monitor] Respiratory 14 14 13 Rate Blood Pressure 108/61 106/64 116/56 O2 Sat by Pulse 89 89 89 Oximetry O2 Sat by Pulse Oximetry [ Anterior Bilateral Throughout] 10/10/20 10/10/20 10/10/20 08:10 08:20 08:30 Temperature Pulse Rate 118 H 111 H 111 H Pulse Rate [ From Monitor] Respiratory 14 18 14 Rate Blood Pressure 112/62 95/55 101/59 O2 Sat by Pulse 89 86 88 Oximetry O2 Sat by Pulse Oximetry [ Anterior Bilateral Throughout] 10/10/20 10/10/20 10/10/20 08:37 08:40 08:50 Temperature Pulse Rate 112 H 113 H Pulse Rate [ 112 H From Monitor] Respiratory 19 20 14 Rate Blood Pressure 100/62 105/62 O2 Sat by Pulse 88 88 88 Oximetry O2 Sat by Pulse Oximetry [ Anterior Bilateral Throughout] 10/10/20 10/10/20 10/10/20 09:00 09:10 09:21 Temperature Pulse Rate 115 H 113 H 115 H Pulse Rate [ From Monitor] Respiratory 16 16 18 Rate Blood Pressure 90/55 95/56 85/54 O2 Sat by Pulse 88 88 88 Oximetry O2 Sat by Pulse Oximetry [ Anterior Bilateral Throughout] 10/10/20 10/10/20 10/10/20 09:30 09:40 09:50 Temperature Pulse Rate 116 H 115 H 115 H Pulse Rate [ From Monitor] Respiratory 16 16 14 Rate Blood Pressure 80/62 98/65 97/61 O2 Sat by Pulse 88 89 89 Oximetry O2 Sat by Pulse Oximetry [ Anterior Bilateral Throughout] 10/10/20 10/10/20 10/10/20 10:00 10:10 10:20 Temperature Pulse Rate 116 H 115 H 117 H Pulse Rate [ From Monitor] Respiratory 16 13 16 Rate Blood Pressure 102/60 95/59 102/55 O2 Sat by Pulse 89 89 89 Oximetry O2 Sat by Pulse Oximetry [ Anterior Bilateral Throughout] 10/10/20 10/10/20 10/10/20 10:30 10:41 10:50 Temperature Pulse Rate 117 H 119 H 124 H Pulse Rate [ From Monitor] Respiratory 14 14 20 Rate Blood Pressure 88/58 101/48 96/59 O2 Sat by Pulse 89 88 88 Oximetry O2 Sat by Pulse Oximetry [ Anterior Bilateral Throughout] 10/10/20 10/10/20 10/10/20 11:01 11:11 11:21 Temperature Pulse Rate 119 H 124 H 121 H Pulse Rate [ From Monitor] Respiratory 15 10 L 20 Rate Blood Pressure 80/44 80/44 82/39 O2 Sat by Pulse 88 90 91 Oximetry O2 Sat by Pulse Oximetry [ Anterior Bilateral Throughout] 10/10/20 10/10/20 10/10/20 11:30 11:41 11:51 Temperature Pulse Rate 124 H 124 H 124 H Pulse Rate [ From Monitor] Respiratory 22 13 13 Rate Blood Pressure 87/58 87/58 87/58 O2 Sat by Pulse 94 95 95 Oximetry O2 Sat by Pulse Oximetry [ Anterior Bilateral Throughout] 10/10/20 10/10/20 10/10/20 12:00 12:06 12:19 Temperature 100.6 F H 100.6 F H Pulse Rate 124 H Pulse Rate [ 124 H From Monitor] Respiratory 13 13 Rate Blood Pressure 95/63 O2 Sat by Pulse 95 92 Oximetry O2 Sat by Pulse Oximetry [ Anterior Bilateral Throughout] Constitutional: appears uncomfortable, other (middle aged male with mildly increased respiratory effort at rest on MVS) Eyes: non-icteric ENT: oropharynx moist, other (ETT 24 cm CARY) Neck: supple, no lymphadenopathy, no JVD, other (large circumference) Effort: mildly labored Ascultation: Bilateral: diminished breath sounds, rhonchi Percussion: Bilateral: not dull Cardiovascular: regular rate and rhythm Gastrointestinal: normoactive bowel sounds, soft, non-tender, non-distended (protuberant) Integumentary: normal Extremities: no cyanosis, no edema, pulses normal, no ischemia or petechiae, edema (peripheral) Neurologic: non-focal exam (grossly), pupils equal and round, unable to assess, other (sedated) Psychiatric: other (unable to assess re: AMS) CBC and BMP: 10/10/20 04:47 10/10/20 04:47 ABG, PT/INR, D-dimer: ABG ABG pH 7.102 (7.320-7.450) L 10/10/20 12:10 POC ABG pCO2 66.6 mmHg (32.0-48.0) H 10/10/20 12:10 POC ABG pO2 94.4 mmHg (83-108) 10/10/20 12:10 POC ABG HCO3 20.3 10/10/20 12:10 ABG O2 Saturation 95.3 (0-100) 10/10/20 12:10 PT/INR, D-dimer PT 14.9 Sec. (12.2-14.9) 10/04/20 14:16 INR 1.12 (0.87-1.13) 10/04/20 14:16 D-Dimer > 19562 ng/mlDDU (0-234) H 10/10/20 04:47 Abnormal lab findings: Abnormal Labs 10/02/20 10/02/20 10/02/20 01:01 01:01 01:01 WBC RBC 5.04 H Hgb Hct MCV 81 L MCH 27 L Seg Neuts % (Manual) 85.0 H Lymphocytes % (Manual) 1.0 L Monocytes % (Manual) 11.0 H Nucleated RBC % 1.0 H Seg Neutrophils # Man 9.4 H Lymphocytes # (Manual) 0.1 L Monocytes # (Manual) 1.2 H PT 15.3 H INR 1.16 H Thrombin Time 23.2 H D-Dimer Heparin Anti-Xa Level ABG pH POC ABG pCO2 POC ABG pO2 ABG Hemoglobin ABG Oxyhemoglobin ABG Sodium ABG Potassium ABG Chloride ABG Glucose Carboxyhemoglobin Sodium 133 L Potassium Chloride 85.1 L BUN 66 H Creatinine 5.6 H Glucose 292 H POC Glucose Hemoglobin A1c Lactic Acid Phosphorus Ferritin AST 173 H ALT 139 H Alkaline Phosphatase Lactate Dehydrogenase Total Creatine Kinase 2544 H CK-MB (CK-2) 14.8 H Troponin T 0.036 H C-Reactive Protein Total Protein Albumin 3.3 L Triglycerides 427 H HDL Cholesterol 31 L PTH Intact Arterial Blood Glucose Arterial Blood Ionized Calcium Urine WBC (Auto) Urine Creatinine Coronavirus (PCR) 10/02/20 10/02/20 10/02/20 02:59 03:51 11:47 WBC RBC Hgb Hct MCV MCH Seg Neuts % (Manual) Lymphocytes % (Manual) Monocytes % (Manual) Nucleated RBC % Seg Neutrophils # Man Lymphocytes # (Manual) Monocytes # (Manual) PT INR Thrombin Time D-Dimer Heparin Anti-Xa Level ABG pH POC ABG pCO2 POC ABG pO2 55.2 L ABG Hemoglobin ABG Oxyhemoglobin 85.4 L ABG Sodium 132.0 L ABG Potassium ABG Chloride 89.0 L ABG Glucose 372 H Carboxyhemoglobin Sodium Potassium Chloride BUN Creatinine Glucose POC Glucose Hemoglobin A1c Lactic Acid Phosphorus Ferritin AST ALT Alkaline Phosphatase Lactate Dehydrogenase Total Creatine Kinase 2548 H CK-MB (CK-2) Troponin T C-Reactive Protein Total Protein Albumin Triglycerides HDL Cholesterol PTH Intact Arterial Blood Glucose 372 H Arterial Blood Ionized Calcium Urine WBC (Auto) 8.0 H Urine Creatinine Coronavirus (PCR) 10/02/20 10/02/20 10/02/20 11:47 11:47 11:47 WBC RBC Hgb Hct MCV MCH Seg Neuts % (Manual) Lymphocytes % (Manual) Monocytes % (Manual) Nucleated RBC % Seg Neutrophils # Man Lymphocytes # (Manual) Monocytes # (Manual) PT INR Thrombin Time D-Dimer 1023.48 H Heparin Anti-Xa Level ABG pH POC ABG pCO2 POC ABG pO2 ABG Hemoglobin ABG Oxyhemoglobin ABG Sodium ABG Potassium ABG Chloride ABG Glucose Carboxyhemoglobin Sodium Potassium Chloride BUN Creatinine Glucose POC Glucose Hemoglobin A1c Lactic Acid Phosphorus Ferritin 8643.0 H AST ALT Alkaline Phosphatase Lactate Dehydrogenase 828 H Total Creatine Kinase CK-MB (CK-2) Troponin T C-Reactive Protein 13.60 H Total Protein Albumin Triglycerides HDL Cholesterol PTH Intact Arterial Blood Glucose Arterial Blood Ionized Calcium Urine WBC (Auto) Urine Creatinine Coronavirus (PCR) 10/02/20 10/02/20 10/02/20 18:48 23:51 Unknown WBC RBC Hgb Hct MCV MCH Seg Neuts % (Manual) Lymphocytes % (Manual) Monocytes % (Manual) Nucleated RBC % Seg Neutrophils # Man Lymphocytes # (Manual) Monocytes # (Manual) PT INR Thrombin Time D-Dimer Heparin Anti-Xa Level ABG pH POC ABG pCO2 POC ABG pO2 ABG Hemoglobin ABG Oxyhemoglobin ABG Sodium ABG Potassium ABG Chloride ABG Glucose Carboxyhemoglobin Sodium Potassium Chloride BUN Creatinine Glucose POC Glucose 441 H 457 H Hemoglobin A1c Lactic Acid Phosphorus Ferritin AST ALT Alkaline Phosphatase Lactate Dehydrogenase Total Creatine Kinase CK-MB (CK-2) Troponin T C-Reactive Protein Total Protein Albumin Triglycerides HDL Cholesterol PTH Intact Arterial Blood Glucose Arterial Blood Ionized Calcium Urine WBC (Auto) Urine Creatinine Coronavirus (PCR) Positive A 10/03/20 10/03/20 10/03/20 05:22 05:25 05:25 WBC RBC Hgb Hct MCV MCH Seg Neuts % (Manual) Lymphocytes % (Manual) Monocytes % (Manual) Nucleated RBC % Seg Neutrophils # Man Lymphocytes # (Manual) Monocytes # (Manual) PT INR Thrombin Time D-Dimer Heparin Anti-Xa Level ABG pH POC ABG pCO2 POC ABG pO2 74.3 L ABG Hemoglobin ABG Oxyhemoglobin 93.2 L ABG Sodium 133.6 L ABG Potassium ABG Chloride 92.0 L ABG Glucose 399 H Carboxyhemoglobin 0.3 L Sodium 135 L Potassium Chloride 88.0 L BUN 102 H Creatinine 7.5 H Glucose 383 H POC Glucose Hemoglobin A1c Lactic Acid Phosphorus Ferritin AST 71 H ALT 88 H Alkaline Phosphatase Lactate Dehydrogenase Total Creatine Kinase 1597 H CK-MB (CK-2) Troponin T C-Reactive Protein Total Protein Albumin 2.6 L Triglycerides HDL Cholesterol PTH Intact Arterial Blood Glucose 399 H Arterial Blood Ionized Calcium Urine WBC (Auto) Urine Creatinine Coronavirus (PCR) 10/03/20 10/03/20 10/03/20 06:09 06:30 09:06 WBC RBC Hgb Hct MCV MCH Seg Neuts % (Manual) Lymphocytes % (Manual) Monocytes % (Manual) Nucleated RBC % Seg Neutrophils # Man Lymphocytes # (Manual) Monocytes # (Manual) PT INR Thrombin Time D-Dimer Heparin Anti-Xa Level ABG pH POC ABG pCO2 POC ABG pO2 ABG Hemoglobin ABG Oxyhemoglobin ABG Sodium ABG Potassium ABG Chloride ABG Glucose Carboxyhemoglobin Sodium Potassium Chloride BUN Creatinine Glucose POC Glucose 360 H 298 H Hemoglobin A1c Lactic Acid Phosphorus Ferritin AST ALT Alkaline Phosphatase Lactate Dehydrogenase Total Creatine Kinase CK-MB (CK-2) Troponin T C-Reactive Protein Total Protein Albumin Triglycerides HDL Cholesterol PTH Intact Arterial Blood Glucose Arterial Blood Ionized Calcium Urine WBC (Auto) Urine Creatinine 156.1 H Coronavirus (PCR) 10/03/20 10/03/20 10/03/20 13:07 16:37 21:32 WBC RBC Hgb Hct MCV MCH Seg Neuts % (Manual) Lymphocytes % (Manual) Monocytes % (Manual) Nucleated RBC % Seg Neutrophils # Man Lymphocytes # (Manual) Monocytes # (Manual) PT INR Thrombin Time D-Dimer Heparin Anti-Xa Level ABG pH POC ABG pCO2 POC ABG pO2 ABG Hemoglobin ABG Oxyhemoglobin ABG Sodium ABG Potassium ABG Chloride ABG Glucose Carboxyhemoglobin Sodium Potassium Chloride BUN Creatinine Glucose POC Glucose 243 H 229 H 169 H Hemoglobin A1c Lactic Acid Phosphorus Ferritin AST ALT Alkaline Phosphatase Lactate Dehydrogenase Total Creatine Kinase CK-MB (CK-2) Troponin T C-Reactive Protein Total Protein Albumin Triglycerides HDL Cholesterol PTH Intact Arterial Blood Glucose Arterial Blood Ionized Calcium Urine WBC (Auto) Urine Creatinine Coronavirus (PCR) 10/03/20 10/04/20 10/04/20 23:09 03:26 04:58 WBC RBC Hgb Hct MCV MCH Seg Neuts % (Manual) Lymphocytes % (Manual) Monocytes % (Manual) Nucleated RBC % Seg Neutrophils # Man Lymphocytes # (Manual) Monocytes # (Manual) PT INR Thrombin Time D-Dimer Heparin Anti-Xa Level ABG pH POC ABG pCO2 POC ABG pO2 77.8 L ABG Hemoglobin ABG Oxyhemoglobin ABG Sodium ABG Potassium ABG Chloride ABG Glucose Carboxyhemoglobin 0.1 L Sodium Potassium Chloride 97.1 L BUN 112 H Creatinine 8.2 H Glucose 70 L POC Glucose 150 H Hemoglobin A1c Lactic Acid Phosphorus 8.10 H Ferritin AST 50 H ALT 66 H Alkaline Phosphatase Lactate Dehydrogenase Total Creatine Kinase 983 H CK-MB (CK-2) Troponin T C-Reactive Protein Total Protein Albumin 2.6 L Triglycerides HDL Cholesterol PTH Intact Arterial Blood Glucose Arterial Blood Ionized Calcium 4.5 L Urine WBC (Auto) Urine Creatinine Coronavirus (PCR) 10/04/20 10/04/20 10/04/20 04:58 04:58 09:59 WBC 15.7 H RBC Hgb Hct MCV 82 L MCH Seg Neuts % (Manual) Lymphocytes % (Manual) Monocytes % (Manual) Nucleated RBC % Seg Neutrophils # Man Lymphocytes # (Manual) Monocytes # (Manual) PT INR Thrombin Time D-Dimer 2287.60 H Heparin Anti-Xa Level ABG pH POC ABG pCO2 POC ABG pO2 ABG Hemoglobin ABG Oxyhemoglobin ABG Sodium ABG Potassium ABG Chloride ABG Glucose Carboxyhemoglobin Sodium Potassium Chloride BUN Creatinine Glucose POC Glucose Hemoglobin A1c Lactic Acid Phosphorus Ferritin AST ALT Alkaline Phosphatase Lactate Dehydrogenase Total Creatine Kinase CK-MB (CK-2) Troponin T C-Reactive Protein Total Protein Albumin Triglycerides HDL Cholesterol PTH Intact 140.3 H Arterial Blood Glucose Arterial Blood Ionized Calcium Urine WBC (Auto) Urine Creatinine Coronavirus (PCR) 10/04/20 10/04/20 10/04/20 09:59 09:59 11:35 WBC RBC Hgb Hct MCV MCH Seg Neuts % (Manual) Lymphocytes % (Manual) Monocytes % (Manual) Nucleated RBC % Seg Neutrophils # Man Lymphocytes # (Manual) Monocytes # (Manual) PT INR Thrombin Time D-Dimer Heparin Anti-Xa Level ABG pH POC ABG pCO2 POC ABG pO2 ABG Hemoglobin ABG Oxyhemoglobin ABG Sodium ABG Potassium ABG Chloride ABG Glucose Carboxyhemoglobin Sodium Potassium Chloride BUN Creatinine Glucose POC Glucose 126 H Hemoglobin A1c Lactic Acid Phosphorus Ferritin > 2000.0 H AST ALT Alkaline Phosphatase Lactate Dehydrogenase 735 H Total Creatine Kinase CK-MB (CK-2) Troponin T C-Reactive Protein 16.40 H Total Protein Albumin Triglycerides HDL Cholesterol PTH Intact Arterial Blood Glucose Arterial Blood Ionized Calcium Urine WBC (Auto) Urine Creatinine Coronavirus (PCR) 10/04/20 10/04/20 10/04/20 14:16 17:17 21:39 WBC RBC Hgb 11.6 L Hct 35.2 L MCV MCH Seg Neuts % (Manual) Lymphocytes % (Manual) Monocytes % (Manual) Nucleated RBC % Seg Neutrophils # Man Lymphocytes # (Manual) Monocytes # (Manual) PT INR Thrombin Time D-Dimer Heparin Anti-Xa Level ABG pH POC ABG pCO2 POC ABG pO2 ABG Hemoglobin ABG Oxyhemoglobin ABG Sodium ABG Potassium ABG Chloride ABG Glucose Carboxyhemoglobin Sodium Potassium Chloride BUN Creatinine Glucose POC Glucose 178 H 160 H Hemoglobin A1c Lactic Acid Phosphorus Ferritin AST ALT Alkaline Phosphatase Lactate Dehydrogenase Total Creatine Kinase CK-MB (CK-2) Troponin T C-Reactive Protein Total Protein Albumin Triglycerides HDL Cholesterol PTH Intact Arterial Blood Glucose Arterial Blood Ionized Calcium Urine WBC (Auto) Urine Creatinine Coronavirus (PCR) 10/05/20 10/05/20 10/05/20 00:13 03:13 05:04 WBC RBC Hgb Hct MCV MCH Seg Neuts % (Manual) Lymphocytes % (Manual) Monocytes % (Manual) Nucleated RBC % Seg Neutrophils # Man Lymphocytes # (Manual) Monocytes # (Manual) PT INR Thrombin Time D-Dimer Heparin Anti-Xa Level ABG pH POC ABG pCO2 POC ABG pO2 ABG Hemoglobin ABG Oxyhemoglobin ABG Sodium ABG Potassium ABG Chloride ABG Glucose 119 H Carboxyhemoglobin 0.3 L Sodium Potassium Chloride BUN 90 H Creatinine 5.9 H Glucose 107 H POC Glucose 141 H Hemoglobin A1c Lactic Acid Phosphorus Ferritin AST ALT Alkaline Phosphatase Lactate Dehydrogenase Total Creatine Kinase 482 H CK-MB (CK-2) Troponin T C-Reactive Protein Total Protein Albumin Triglycerides HDL Cholesterol PTH Intact Arterial Blood Glucose 119 H Arterial Blood Ionized Calcium 4.4 L Urine WBC (Auto) Urine Creatinine Coronavirus (PCR) 10/05/20 10/05/20 10/05/20 11:33 18:04 21:10 WBC RBC Hgb Hct MCV MCH Seg Neuts % (Manual) Lymphocytes % (Manual) Monocytes % (Manual) Nucleated RBC % Seg Neutrophils # Man Lymphocytes # (Manual) Monocytes # (Manual) PT INR Thrombin Time D-Dimer Heparin Anti-Xa Level ABG pH POC ABG pCO2 POC ABG pO2 ABG Hemoglobin ABG Oxyhemoglobin ABG Sodium ABG Potassium ABG Chloride ABG Glucose Carboxyhemoglobin Sodium Potassium Chloride BUN Creatinine Glucose POC Glucose 136 H 185 H 162 H Hemoglobin A1c Lactic Acid Phosphorus Ferritin AST ALT Alkaline Phosphatase Lactate Dehydrogenase Total Creatine Kinase CK-MB (CK-2) Troponin T C-Reactive Protein Total Protein Albumin Triglycerides HDL Cholesterol PTH Intact Arterial Blood Glucose Arterial Blood Ionized Calcium Urine WBC (Auto) Urine Creatinine Coronavirus (PCR) 10/06/20 10/06/20 10/06/20 02:09 02:09 02:09 WBC 16.3 H RBC Hgb 11.3 L Hct 34.7 L MCV 83 L MCH 27 L Seg Neuts % (Manual) Lymphocytes % (Manual) Monocytes % (Manual) Nucleated RBC % Seg Neutrophils # Man Lymphocytes # (Manual) Monocytes # (Manual) PT INR Thrombin Time D-Dimer Heparin Anti-Xa Level ABG pH POC ABG pCO2 POC ABG pO2 ABG Hemoglobin ABG Oxyhemoglobin ABG Sodium ABG Potassium ABG Chloride ABG Glucose Carboxyhemoglobin Sodium Potassium Chloride BUN 107 H Creatinine 6.6 H Glucose 175 H POC Glucose Hemoglobin A1c Lactic Acid Phosphorus Ferritin AST 52 H ALT Alkaline Phosphatase Lactate Dehydrogenase 802 H Total Creatine Kinase CK-MB (CK-2) Troponin T C-Reactive Protein 27.00 H Total Protein 5.2 L Albumin 2.3 L Triglycerides HDL Cholesterol PTH Intact Arterial Blood Glucose Arterial Blood Ionized Calcium Urine WBC (Auto) Urine Creatinine Coronavirus (PCR) 10/06/20 10/06/20 10/06/20 02:09 02:37 05:12 WBC RBC Hgb Hct MCV MCH Seg Neuts % (Manual) Lymphocytes % (Manual) Monocytes % (Manual) Nucleated RBC % Seg Neutrophils # Man Lymphocytes # (Manual) Monocytes # (Manual) PT INR Thrombin Time D-Dimer Heparin Anti-Xa Level ABG pH POC ABG pCO2 POC ABG pO2 75.5 L ABG Hemoglobin ABG Oxyhemoglobin 93.3 L ABG Sodium ABG Potassium ABG Chloride ABG Glucose 165 H Carboxyhemoglobin 0.1 L Sodium Potassium Chloride BUN Creatinine Glucose POC Glucose 142 H Hemoglobin A1c Lactic Acid Phosphorus Ferritin AST ALT Alkaline Phosphatase Lactate Dehydrogenase Total Creatine Kinase CK-MB (CK-2) Troponin T C-Reactive Protein Total Protein Albumin Triglycerides 392 H HDL Cholesterol PTH Intact Arterial Blood Glucose 165 H Arterial Blood Ionized Calcium Urine WBC (Auto) Urine Creatinine Coronavirus (PCR) 10/06/20 10/06/20 10/06/20 06:53 10:38 11:22 WBC RBC Hgb Hct MCV MCH Seg Neuts % (Manual) Lymphocytes % (Manual) Monocytes % (Manual) Nucleated RBC % Seg Neutrophils # Man Lymphocytes # (Manual) Monocytes # (Manual) PT INR Thrombin Time D-Dimer 2754.80 H Heparin Anti-Xa Level ABG pH POC ABG pCO2 POC ABG pO2 ABG Hemoglobin ABG Oxyhemoglobin ABG Sodium ABG Potassium ABG Chloride ABG Glucose Carboxyhemoglobin Sodium Potassium Chloride BUN Creatinine Glucose POC Glucose 166 H Hemoglobin A1c Lactic Acid Phosphorus Ferritin > 2000.0 H AST ALT Alkaline Phosphatase Lactate Dehydrogenase Total Creatine Kinase CK-MB (CK-2) Troponin T C-Reactive Protein Total Protein Albumin Triglycerides HDL Cholesterol PTH Intact Arterial Blood Glucose Arterial Blood Ionized Calcium Urine WBC (Auto) Urine Creatinine Coronavirus (PCR) 10/06/20 10/06/20 10/07/20 17:52 23:58 05:29 WBC RBC Hgb Hct MCV MCH Seg Neuts % (Manual) Lymphocytes % (Manual) Monocytes % (Manual) Nucleated RBC % Seg Neutrophils # Man Lymphocytes # (Manual) Monocytes # (Manual) PT INR Thrombin Time D-Dimer Heparin Anti-Xa Level ABG pH POC ABG pCO2 POC ABG pO2 ABG Hemoglobin ABG Oxyhemoglobin ABG Sodium ABG Potassium ABG Chloride ABG Glucose Carboxyhemoglobin Sodium Potassium Chloride BUN Creatinine Glucose POC Glucose 221 H 228 H 147 H Hemoglobin A1c Lactic Acid Phosphorus Ferritin AST ALT Alkaline Phosphatase Lactate Dehydrogenase Total Creatine Kinase CK-MB (CK-2) Troponin T C-Reactive Protein Total Protein Albumin Triglycerides HDL Cholesterol PTH Intact Arterial Blood Glucose Arterial Blood Ionized Calcium Urine WBC (Auto) Urine Creatinine Coronavirus (PCR) 10/07/20 10/07/20 10/07/20 06:00 06:00 06:00 WBC 16.2 H RBC Hgb 11.0 L Hct 34.7 L MCV 82 L MCH 26 L Seg Neuts % (Manual) Lymphocytes % (Manual) Monocytes % (Manual) Nucleated RBC % Seg Neutrophils # Man Lymphocytes # (Manual) Monocytes # (Manual) PT INR Thrombin Time D-Dimer Heparin Anti-Xa Level 0.26 L ABG pH POC ABG pCO2 POC ABG pO2 ABG Hemoglobin ABG Oxyhemoglobin ABG Sodium ABG Potassium ABG Chloride ABG Glucose Carboxyhemoglobin Sodium Potassium Chloride 97.3 L BUN 77 H Creatinine 5.7 H Glucose 151 H POC Glucose Hemoglobin A1c Lactic Acid Phosphorus Ferritin AST ALT Alkaline Phosphatase Lactate Dehydrogenase Total Creatine Kinase 473 H CK-MB (CK-2) Troponin T C-Reactive Protein Total Protein Albumin Triglycerides HDL Cholesterol PTH Intact Arterial Blood Glucose Arterial Blood Ionized Calcium Urine WBC (Auto) Urine Creatinine Coronavirus (PCR) 10/07/20 10/07/20 10/07/20 13:14 13:58 17:17 WBC RBC Hgb Hct MCV MCH Seg Neuts % (Manual) Lymphocytes % (Manual) Monocytes % (Manual) Nucleated RBC % Seg Neutrophils # Man Lymphocytes # (Manual) Monocytes # (Manual) PT INR Thrombin Time D-Dimer Heparin Anti-Xa Level ABG pH 7.305 L 7.313 L POC ABG pCO2 POC ABG pO2 49.7 L 45.8 L ABG Hemoglobin ABG Oxyhemoglobin 80.5 L 76.6 L ABG Sodium 133.3 L 131.4 L ABG Potassium 4.6 H ABG Chloride ABG Glucose 125 H 158 H Carboxyhemoglobin Sodium Potassium Chloride BUN Creatinine Glucose POC Glucose 132 H Hemoglobin A1c Lactic Acid Phosphorus Ferritin AST ALT Alkaline Phosphatase Lactate Dehydrogenase Total Creatine Kinase CK-MB (CK-2) Troponin T C-Reactive Protein Total Protein Albumin Triglycerides HDL Cholesterol PTH Intact Arterial Blood Glucose 125 H 158 H Arterial Blood Ionized Calcium 4.5 L 4.5 L Urine WBC (Auto) Urine Creatinine Coronavirus (PCR) 10/07/20 10/07/20 10/08/20 17:40 23:11 04:00 WBC RBC Hgb Hct MCV MCH Seg Neuts % (Manual) Lymphocytes % (Manual) Monocytes % (Manual) Nucleated RBC % Seg Neutrophils # Man Lymphocytes # (Manual) Monocytes # (Manual) PT INR Thrombin Time D-Dimer Heparin Anti-Xa Level ABG pH POC ABG pCO2 POC ABG pO2 46.9 L ABG Hemoglobin ABG Oxyhemoglobin 77.7 L ABG Sodium 134.1 L ABG Potassium 4.6 H ABG Chloride ABG Glucose 120 H Carboxyhemoglobin Sodium Potassium Chloride BUN Creatinine Glucose POC Glucose 152 H 108 H Hemoglobin A1c Lactic Acid Phosphorus Ferritin AST ALT Alkaline Phosphatase Lactate Dehydrogenase Total Creatine Kinase CK-MB (CK-2) Troponin T C-Reactive Protein Total Protein Albumin Triglycerides HDL Cholesterol PTH Intact Arterial Blood Glucose 120 H Arterial Blood Ionized Calcium 4.3 L Urine WBC (Auto) Urine Creatinine Coronavirus (PCR) 10/08/20 10/08/20 10/08/20 04:20 04:20 04:20 WBC 17.1 H RBC Hgb 11.7 L Hct MCV 82 L MCH 26 L Seg Neuts % (Manual) Lymphocytes % (Manual) Monocytes % (Manual) Nucleated RBC % Seg Neutrophils # Man Lymphocytes # (Manual) Monocytes # (Manual) PT INR Thrombin Time D-Dimer 4280.35 H Heparin Anti-Xa Level 0.14 L ABG pH POC ABG pCO2 POC ABG pO2 ABG Hemoglobin ABG Oxyhemoglobin ABG Sodium ABG Potassium ABG Chloride ABG Glucose Carboxyhemoglobin Sodium Potassium 5.1 H D Chloride 94.8 L BUN 103 H Creatinine 7.3 H Glucose 107 H POC Glucose Hemoglobin A1c Lactic Acid Phosphorus Ferritin AST ALT Alkaline Phosphatase Lactate Dehydrogenase 786 H Total Creatine Kinase CK-MB (CK-2) Troponin T C-Reactive Protein 28.70 H Total Protein Albumin Triglycerides HDL Cholesterol PTH Intact Arterial Blood Glucose Arterial Blood Ionized Calcium Urine WBC (Auto) Urine Creatinine Coronavirus (PCR) 10/08/20 10/08/20 10/08/20 12:19 14:12 17:51 WBC RBC Hgb Hct MCV MCH Seg Neuts % (Manual) Lymphocytes % (Manual) Monocytes % (Manual) Nucleated RBC % Seg Neutrophils # Man Lymphocytes # (Manual) Monocytes # (Manual) PT INR Thrombin Time D-Dimer Heparin Anti-Xa Level ABG pH 7.293 L POC ABG pCO2 POC ABG pO2 48.4 L ABG Hemoglobin 11.7 L ABG Oxyhemoglobin 77.4 L ABG Sodium 131.4 L ABG Potassium 4.8 H ABG Chloride ABG Glucose 184 H Carboxyhemoglobin Sodium Potassium Chloride BUN Creatinine Glucose POC Glucose 169 H 165 H Hemoglobin A1c Lactic Acid Phosphorus Ferritin AST ALT Alkaline Phosphatase Lactate Dehydrogenase Total Creatine Kinase CK-MB (CK-2) Troponin T C-Reactive Protein Total Protein Albumin Triglycerides HDL Cholesterol PTH Intact Arterial Blood Glucose 184 H Arterial Blood Ionized Calcium 4.5 L Urine WBC (Auto) Urine Creatinine Coronavirus (PCR) 10/08/20 10/09/20 10/09/20 22:35 04:00 05:08 WBC RBC Hgb Hct MCV MCH Seg Neuts % (Manual) Lymphocytes % (Manual) Monocytes % (Manual) Nucleated RBC % Seg Neutrophils # Man Lymphocytes # (Manual) Monocytes # (Manual) PT INR Thrombin Time D-Dimer Heparin Anti-Xa Level ABG pH POC ABG pCO2 POC ABG pO2 38.5 L ABG Hemoglobin ABG Oxyhemoglobin 64.5 L ABG Sodium 126.7 L ABG Potassium 4.8 H ABG Chloride 95.0 L ABG Glucose 250 H Carboxyhemoglobin Sodium Potassium Chloride BUN Creatinine Glucose POC Glucose 221 H 228 H Hemoglobin A1c Lactic Acid Phosphorus Ferritin AST ALT Alkaline Phosphatase Lactate Dehydrogenase Total Creatine Kinase CK-MB (CK-2) Troponin T C-Reactive Protein Total Protein Albumin Triglycerides HDL Cholesterol PTH Intact Arterial Blood Glucose 250 H Arterial Blood Ionized Calcium 4.4 L Urine WBC (Auto) Urine Creatinine Coronavirus (PCR) 10/09/20 10/09/20 10/09/20 07:15 07:15 07:15 WBC 19.0 H RBC Hgb Hct MCV 82 L MCH 27 L Seg Neuts % (Manual) Lymphocytes % (Manual) Monocytes % (Manual) Nucleated RBC % Seg Neutrophils # Man Lymphocytes # (Manual) Monocytes # (Manual) PT INR Thrombin Time D-Dimer Heparin Anti-Xa Level 0.16 L ABG pH POC ABG pCO2 POC ABG pO2 ABG Hemoglobin ABG Oxyhemoglobin ABG Sodium ABG Potassium ABG Chloride ABG Glucose Carboxyhemoglobin Sodium 134 L Potassium 5.3 H Chloride 90.6 L BUN 86 H Creatinine 6.3 H Glucose 207 H POC Glucose Hemoglobin A1c Lactic Acid Phosphorus Ferritin AST ALT Alkaline Phosphatase Lactate Dehydrogenase Total Creatine Kinase CK-MB (CK-2) Troponin T C-Reactive Protein Total Protein Albumin Triglycerides 864 H HDL Cholesterol PTH Intact Arterial Blood Glucose Arterial Blood Ionized Calcium Urine WBC (Auto) Urine Creatinine Coronavirus (PCR) 10/09/20 10/09/20 10/09/20 11:17 13:34 17:38 WBC RBC Hgb Hct MCV MCH Seg Neuts % (Manual) Lymphocytes % (Manual) Monocytes % (Manual) Nucleated RBC % Seg Neutrophils # Man Lymphocytes # (Manual) Monocytes # (Manual) PT INR Thrombin Time D-Dimer Heparin Anti-Xa Level ABG pH 7.164 L POC ABG pCO2 67.6 H POC ABG pO2 74.5 L ABG Hemoglobin ABG Oxyhemoglobin 89.8 L ABG Sodium 128.0 L ABG Potassium 5.9 H ABG Chloride 94.0 L ABG Glucose 255 H Carboxyhemoglobin Sodium Potassium Chloride BUN Creatinine Glucose POC Glucose 197 H 246 H Hemoglobin A1c Lactic Acid Phosphorus Ferritin AST ALT Alkaline Phosphatase Lactate Dehydrogenase Total Creatine Kinase CK-MB (CK-2) Troponin T C-Reactive Protein Total Protein Albumin Triglycerides HDL Cholesterol PTH Intact Arterial Blood Glucose 255 H Arterial Blood Ionized Calcium 4.4 L Urine WBC (Auto) Urine Creatinine Coronavirus (PCR) 10/09/20 10/09/20 10/09/20 18:00 21:00 21:36 WBC RBC Hgb Hct MCV MCH Seg Neuts % (Manual) Lymphocytes % (Manual) Monocytes % (Manual) Nucleated RBC % Seg Neutrophils # Man Lymphocytes # (Manual) Monocytes # (Manual) PT INR Thrombin Time D-Dimer Heparin Anti-Xa Level ABG pH 7.121 L POC ABG pCO2 60.4 H POC ABG pO2 72.8 L ABG Hemoglobin ABG Oxyhemoglobin 91.0 L ABG Sodium 130.2 L ABG Potassium 6.6 H ABG Chloride 96.0 L ABG Glucose 198 H Carboxyhemoglobin Sodium Potassium Chloride BUN Creatinine Glucose POC Glucose 200 H Hemoglobin A1c Lactic Acid Phosphorus Ferritin AST ALT Alkaline Phosphatase Lactate Dehydrogenase Total Creatine Kinase CK-MB (CK-2) Troponin T C-Reactive Protein Total Protein Albumin Triglycerides HDL Cholesterol PTH Intact Arterial Blood Glucose 198 H Arterial Blood Ionized Calcium 4.4 L Urine WBC (Auto) 20.0 H Urine Creatinine Coronavirus (PCR) 10/09/20 10/10/20 10/10/20 23:49 04:47 04:47 WBC 17.8 H RBC Hgb Hct MCV 83 L MCH 27 L Seg Neuts % (Manual) Lymphocytes % (Manual) Monocytes % (Manual) Nucleated RBC % Seg Neutrophils # Man Lymphocytes # (Manual) Monocytes # (Manual) PT INR Thrombin Time D-Dimer > 21412 H Heparin Anti-Xa Level ABG pH POC ABG pCO2 POC ABG pO2 ABG Hemoglobin ABG Oxyhemoglobin ABG Sodium ABG Potassium ABG Chloride ABG Glucose Carboxyhemoglobin Sodium Potassium Chloride BUN Creatinine Glucose POC Glucose 186 H Hemoglobin A1c Lactic Acid Phosphorus Ferritin AST ALT Alkaline Phosphatase Lactate Dehydrogenase Total Creatine Kinase CK-MB (CK-2) Troponin T C-Reactive Protein Total Protein Albumin Triglycerides HDL Cholesterol PTH Intact Arterial Blood Glucose Arterial Blood Ionized Calcium Urine WBC (Auto) Urine Creatinine Coronavirus (PCR) 10/10/20 10/10/20 10/10/20 04:47 04:47 04:47 WBC RBC Hgb Hct MCV MCH Seg Neuts % (Manual) Lymphocytes % (Manual) Monocytes % (Manual) Nucleated RBC % Seg Neutrophils # Man Lymphocytes # (Manual) Monocytes # (Manual) PT INR Thrombin Time D-Dimer Heparin Anti-Xa Level ABG pH POC ABG pCO2 POC ABG pO2 ABG Hemoglobin ABG Oxyhemoglobin ABG Sodium ABG Potassium ABG Chloride ABG Glucose Carboxyhemoglobin Sodium Potassium 5.8 H Chloride 93.4 L BUN 83 H Creatinine 6.8 H Glucose 191 H POC Glucose Hemoglobin A1c Lactic Acid 2.20 H* Phosphorus Ferritin AST 61 H ALT 63 H Alkaline Phosphatase 156 H Lactate Dehydrogenase 688 H Total Creatine Kinase CK-MB (CK-2) Troponin T C-Reactive Protein 9.90 H Total Protein Albumin 2.5 L Triglycerides 602 H HDL Cholesterol PTH Intact Arterial Blood Glucose Arterial Blood Ionized Calcium Urine WBC (Auto) Urine Creatinine Coronavirus (PCR) 10/10/20 10/10/20 10/10/20 04:47 04:47 05:15 WBC RBC Hgb Hct MCV MCH Seg Neuts % (Manual) Lymphocytes % (Manual) Monocytes % (Manual) Nucleated RBC % Seg Neutrophils # Man Lymphocytes # (Manual) Monocytes # (Manual) PT INR Thrombin Time D-Dimer Heparin Anti-Xa Level 0.11 L ABG pH POC ABG pCO2 POC ABG pO2 ABG Hemoglobin ABG Oxyhemoglobin ABG Sodium ABG Potassium ABG Chloride ABG Glucose Carboxyhemoglobin Sodium Potassium Chloride BUN Creatinine Glucose POC Glucose 212 H Hemoglobin A1c 10.0 H Lactic Acid Phosphorus Ferritin AST ALT Alkaline Phosphatase Lactate Dehydrogenase Total Creatine Kinase CK-MB (CK-2) Troponin T C-Reactive Protein Total Protein Albumin Triglycerides HDL Cholesterol PTH Intact Arterial Blood Glucose Arterial Blood Ionized Calcium Urine WBC (Auto) Urine Creatinine Coronavirus (PCR) 10/10/20 10/10/20 11:43 12:10 WBC RBC Hgb Hct MCV MCH Seg Neuts % (Manual) Lymphocytes % (Manual) Monocytes % (Manual) Nucleated RBC % Seg Neutrophils # Man Lymphocytes # (Manual) Monocytes # (Manual) PT INR Thrombin Time D-Dimer Heparin Anti-Xa Level ABG pH 7.102 L POC ABG pCO2 66.6 H POC ABG pO2 ABG Hemoglobin ABG Oxyhemoglobin ABG Sodium 131.3 L ABG Potassium 6.3 H ABG Chloride ABG Glucose 317 H Carboxyhemoglobin 0.4 L Sodium Potassium Chloride BUN Creatinine Glucose POC Glucose 297 H Hemoglobin A1c Lactic Acid Phosphorus Ferritin AST ALT Alkaline Phosphatase Lactate Dehydrogenase Total Creatine Kinase CK-MB (CK-2) Troponin T C-Reactive Protein Total Protein Albumin Triglycerides HDL Cholesterol PTH Intact Arterial Blood Glucose 317 H Arterial Blood Ionized Calcium 4.3 L Urine WBC (Auto) Urine Creatinine Coronavirus (PCR) Chest x-ray: image reviewed (persistent bilateral infiltrates) Allied health notes reviewed: nursing
--- NOTE | 2020-10-10 13:07 | Progress Note ---
Assessment and Plan Assessment and plan: This is a 50-year-old male with HTN, DM who was diagnosed with COVID-19 approximately 1 week prior to presentation admitted for COVID-19 pneumonia, acute respiratory failure, rule out CVA, acute encephalopathy, sepsis, OLIVIA. Neuro: Acute encephalopathy, rule out CVA -Neurology consulted, appreciate recommendations -Goal RASS -3 to -4 while proned -Sedated with fentanyl, propofol weansed to 5mcg -MRI brain or CT brain pending as patient is too unstable at this time -10/02 CT head with abnormal finding, see reading -10/02 CTA head, see report -10/02 CTA neck, see report -10/02 carotid Doppler ultrasound, see report -10/02 EEG ,see report Cardiology: SRSB, H/O HTN -Blood pressure monitoring per protocol -levophed gtt for goal MAP>65 -Echocardiogram shows LVEF 50 to 55%, saline bubble contrast intravenous injection demonstrates PFO, trace MR, mild AR, trace to mild TR, RVSP is 33 mmHg, mild MD with no pleural effusion Respiratory: Acute hypoxic respiratory failure -CM consulted, appreciate recommendations -OETT 7.5 @ 24 lips and currently on APRV 100% -10/10 CXR and ABG reviewed and given Bicarb with bicarb gtt ordered -Serial ABG and CXR -Proning as tolerated for 16 hours -VAP bundle -SAT/SBT when able GI: Transaminitis, TF, constipation, Triglyceridemia -GI and NTR consulted, appreciate recommendations -10/02 abdominal ultrasound shows hepatomegaly, mild splenomegaly and trace perihepatic ascites, see report -BR: Senokot qday . lactulose/miralax dc r/t need for FMS -PPI -Trend LFTs and triglyceride -10/09 triglyceride 864-> lipase 41, RUQ US pending : OLIVIA 2/2 COVID 19 with underlying vasomotor nephropathy, acute rhabdomyolysis -Nephrology consulted, appreciate recommendations -Daily weights -Last 24-hour fluid balance positive 300 -Avoid nephrotoxic medications -Renally dose medications -Per nephro: patient received contrast on 10/02; Initiated hemodialysis 10/04 -HD per nephrology -Trend CK, BMP -Sodium Bicarb gtt for 2 liters Endo: Hyperglycemia, h/o DM -Hemoglobin A1c 10 -SSI, Accu-Cheks every 6 -Lantus, titrate as needed -Avoid hypoglycemia Heme: Elevated D-dimer, leukocytosis -Bilateral lower leg Doppler ultrasound negative for DVT/SVT -Transfuse for hemoglobin less than 7 -Systemic anticoagulation with heparin gtt -Trend CBC ID: Sepsis, COVID-19 pneumonia, lactic acidosis -Infectious disease consulted, appreciate recommendations -Contact/isolation precautions -Steroids (10/03 through 10/13) -Ceftriaxone azithromycin for 5 days (10/03 through 10/07) -Actemra x1 on 10/08 -Vitamin D/zinc/vitamin C -Patient is not a candidate for remdesivir due to renal function -Trend COVID-19 inflammatory markers -Prone as needed -Recultured and restarted on vancomycin and cefepime 10/09 The high probability of a clinically significant, sudden or life threatening deterioration of the [PULMONARY, NEUROLOGY] system(s) required my full and direct attention, intervention and personal management. The aggregate critical care time was [60] minutes. This time is in addition to time spent performing reported procedures but includes the following: [X] Data Review and interpretation [X] Patient assessment and monitoring of vital signs [X] Documentation [X] Medication orders and management Disposition Plan: TBD, ICU for now Total Time Spent with Patient (Minutes): 60 History Interval history: This is a 50-year-old male with HTN, DM who presented to the emergency department on 10/02 s/ being found unresponsive by his family with last known well at 8 PM on 09/30/2020 and was diagnosed with COVID-19 a week prior to presentation. Work-up in the emergency department revealed CK of 2554, transaminitis, elevated troponin, elevated BUN/creatinine and CT scan of the head showed subcortical white matter hypodensity in the right frontal lobe with no acute bleed and CXR showed bilateral pneumonia. Patient was admitted to the hospitalist service with consults to CCM, infectious disease, GI and nephrology as a COVID-19 PUI, OLIVIA, rhabdomyolysis, elevated liver enzymes, troponin, acute hypoxic respiratory failure with rule out CVA. 10/03: Patient continues on full ventilator support. Continues on steroids. Recommend Actemra given elevated CRP and intubation. Continue to monitor renal function. [facility] [employer] following patient may need dialysis support but will defer to certified coding specialist. Will adjust insulin for better blood sugar control. GI input noted: LFT improving, consistent with combination of mild ischemic hepatitis and related to his covid infection, Hepatic synthetic function intact continue supportive care, avoid hepatotoxins and liver enzymes should continue to gradually normalize" Neurologist input is also noted recommending an MRI for further evaluation of abnormal CT head finding. 10/04: Patient seen and examined. D-dimer is elevated. Will start on heparin drip until final embolism is ruled out and DVT is ruled out. Will check creatinine kinase to ensure improvement in the rhabdomyolysis. Called family, juan carlos chatman to Obtain AND COULD NOT LEAVE A MESSAGE PER NURSE PATIENT DOES WAKE UP 10/05: Patient seen and examined, remains on full ventilatory support. Rhabdomylsis, improving, Patient started on HD, Awaiting MRI for further evaluation. CXR done yesterday showed worsening bilateral infiltrate. ID input noted, Patient still following commands some when off sedation. - Continue Dexamethasone. - Awaiting Acetmara- Out of stock for now in the hospital - Renal function precludes Remdesivir - Continue heparin drip considering elevated D.dimer till VTE ruled out. 10/06: This morning has some examination patient sedated on propofol and fentanyl, MV with a PEEP of 14 and 80% FiO2. T-max 101.1. Patient still awaiting Actemra dose. Patient is prone at the time of my examination and will be supine at 1330. 10/07: Patient patient was proned again overnight and supinated around 1300. Patient's ventilatory settings were changed however he remains hypoxemic. Patient will be proned today at 8 PM per [facility]. Versed gtt. Echo to be completed today 10/08: Patient was proned at 2000 and supine now, SP02 now 90%. Remains on AC at 100% FiO2. Possible HD today. Overnight the patient consistently satted in the 80s. 10/09: Patient did not have a bowel movement yesterday and has been ordered lactulose and Reglan patient to have hemodialysis today. Continue proning for 16 hours/day as tolerated. Patient hypoxic into the 80s overnight and vent settings were changed today to APRV this afternoon. 10/10: Remains on APRV, latest ABG shows acidosis and given 2 amps bicarb in addition to starting on a bicarb gtt. Levophed ordered for hypotension. Hospitalist Physical - Constitutional Vitals: Temp Pulse Resp BP Pulse Ox 100.6 F H 124 H 13 95/63 92 10/10/20 12:19 10/10/20 12:06 10/10/20 12:06 10/10/20 12:00 10/10/20 12:06 General appearance: Present: other (Intubated and sedated) HEART Score - HEART Score Troponin: Troponin T 0.036 ng/mL (0.00-0.029) H 10/02/20 01:01 Results - Labs CBC & Chem 7: 10/10/20 04:47 10/10/20 04:47 Labs: Laboratory Last Values WBC 17.8 K/mm3 (4.5-11.0) H 10/10/20 04:47 RBC 4.49 M/mm3 (3.65-5.03) 10/10/20 04:47 Hgb 12.1 gm/dl (11.8-15.2) 10/10/20 04:47 Hct 37.4 % (35.5-45.6) 10/10/20 04:47 MCV 83 fl (84-94) L 10/10/20 04:47 MCH 27 pg (28-32) L 10/10/20 04:47 MCHC 32 % (32-34) 10/10/20 04:47 RDW 14.9 % (13.2-15.2) 10/10/20 04:47 Plt Count 198 K/mm3 (140-440) 10/10/20 04:47 Add Manual Diff Complete 10/02/20 01:01 Total Counted 100 10/02/20 01:01 Seg Neuts % (Manual) 85.0 % (40.0-70.0) H 10/02/20 01:01 Band Neutrophils % 3.0 % 10/02/20 01:01 Lymphocytes % (Manual) 1.0 % (13.4-35.0) L 10/02/20 01:01 Monocytes % (Manual) 11.0 % (0.0-7.3) H 10/02/20 01:01 Nucleated RBC % 1.0 % (0.0-0.9) H 10/02/20 01:01 Seg Neutrophils # Man 9.4 K/mm3 (1.8-7.7) H 10/02/20 01:01 Band Neutrophils # 0.3 K/mm3 10/02/20 01:01 Lymphocytes # (Manual) 0.1 K/mm3 (1.2-5.4) L 10/02/20 01:01 Abs React Lymphs (Man) 0.0 K/mm3 10/02/20 01:01 Monocytes # (Manual) 1.2 K/mm3 (0.0-0.8) H 10/02/20 01:01 Eosinophils # (Manual) 0.0 K/mm3 (0.0-0.4) 10/02/20 01:01 Basophils # (Manual) 0.0 K/mm3 (0.0-0.1) 10/02/20 01:01 Metamyelocytes # 0.0 K/mm3 10/02/20 01:01 Myelocytes # 0.0 K/mm3 10/02/20 01:01 Promyelocytes # 0.0 K/mm3 10/02/20 01:01 Blast Cells # 0.0 K/mm3 10/02/20 01:01 WBC Morphology Not Reportable 10/02/20 01:01 Hypersegmented Neuts Not Reportable 10/02/20 01:01 Hyposegmented Neuts Not Reportable 10/02/20 01:01 Hypogranular Neuts Not Reportable 10/02/20 01:01 Smudge Cells Not Reportable 10/02/20 01:01 Toxic Granulation Not Reportable 10/02/20 01:01 Toxic Vacuolation Not Reportable 10/02/20 01:01 Dohle Bodies Not Reportable 10/02/20 01:01 Pelger-Huet Anomaly Not Reportable 10/02/20 01:01 Yohan Rods Not Reportable 10/02/20 01:01 Platelet Estimate Consistent w auto 10/02/20 01:01 Clumped Platelets Not Reportable 10/02/20 01:01 Plt Clumps, EDTA Not Reportable 10/02/20 01:01 Large Platelets Few 10/02/20 01:01 Giant Platelets Not Reportable 10/02/20 01:01 Platelet Satelliting Not Reportable 10/02/20 01:01 Plt Morphology Comment Not Reportable 10/02/20 01:01 RBC Morphology Not Reportable 10/02/20 01:01 Dimorphic RBCs Not Reportable 10/02/20 01:01 Polychromasia Not Reportable 10/02/20 01:01 Hypochromasia Not Reportable 10/02/20 01:01 Poikilocytosis Not Reportable 10/02/20 01:01 Anisocytosis 1+ 10/02/20 01:01 Microcytosis Not Reportable 10/02/20 01:01 Macrocytosis Not Reportable 10/02/20 01:01 Spherocytes Not Reportable 10/02/20 01:01 Pappenheimer Bodies Not Reportable 10/02/20 01:01 Sickle Cells Not Reportable 10/02/20 01:01 Target Cells Not Reportable 10/02/20 01:01 Tear Drop Cells Not Reportable 10/02/20 01:01 Ovalocytes Not Reportable 10/02/20 01:01 Helmet Cells Not Reportable 10/02/20 01:01 De Guzman-Schlusser Bodies Not Reportable 10/02/20 01:01 [place] Rings Not Reportable 10/02/20 01:01 Obdulia Cells Not Reportable 10/02/20 01:01 Bite Cells Not Reportable 10/02/20 01:01 Crenated Cell Not Reportable 10/02/20 01:01 Elliptocytes Not Reportable 10/02/20 01:01 Acanthocytes (Spur) Not Reportable 10/02/20 01:01 Rouleaux Not Reportable 10/02/20 01:01 Hemoglobin C Crystals Not Reportable 10/02/20 01:01 Schistocytes Not Reportable 10/02/20 01:01 Malaria parasites Not Reportable 10/02/20 01:01 Shekhar Bodies Not Reportable 10/02/20 01:01 Hem Pathologist Commnt No 10/02/20 01:01 PT 14.9 Sec. (12.2-14.9) 10/04/20 14:16 INR 1.12 (0.87-1.13) 10/04/20 14:16 APTT 28.5 Sec. (24.2-36.6) 10/04/20 14:16 Thrombin Time 23.2 Sec. (15.1-19.6) H 10/02/20 01:01 D-Dimer > 49320 ng/mlDDU (0-234) H 10/10/20 04:47 Heparin Anti-Xa Level 0.11 U.I./ml (0.3-0.7) L 10/10/20 04:47 ABG pH 7.102 (7.320-7.450) L 10/10/20 12:10 POC ABG pCO2 66.6 mmHg (32.0-48.0) H 10/10/20 12:10 POC ABG pO2 94.4 mmHg (83-108) 10/10/20 12:10 POC ABG HCO3 20.3 10/10/20 12:10 ABG O2 Saturation 95.3 (0-100) 10/10/20 12:10 POC ABG Base Excess -10.0 10/10/20 12:10 ABG Hemoglobin 12.6 (12.0-17.5) 10/10/20 12:10 ABG Oxyhemoglobin 94.6 (94-98) 10/10/20 12:10 ABG Methemoglobin 0.3 (0.0-1.5) 10/10/20 12:10 ABG Sodium 131.3 mmol/L (136.0-145.0) L 10/10/20 12:10 ABG Potassium 6.3 mmol/L (3.40-4.50) H 10/10/20 12:10 ABG Chloride 98.0 mmol/L (98-107) 10/10/20 12:10 ABG Glucose 317 mg/dL (65-95) H 10/10/20 12:10 Carboxyhemoglobin 0.4 (0.5-1.5) L 10/10/20 12:10 FiO2 % 100.0 10/10/20 12:10 Sodium 137 mmol/L (137-145) 10/10/20 04:47 Potassium 5.8 mmol/L (3.6-5.0) H 10/10/20 04:47 Chloride 93.4 mmol/L (98-107) L 10/10/20 04:47 Carbon Dioxide 24 mmol/L (22-30) 10/10/20 04:47 Anion Gap 25 mmol/L 10/10/20 04:47 BUN 83 mg/dL (9-20) H 10/10/20 04:47 Creatinine 6.8 mg/dL (0.8-1.3) H 10/10/20 04:47 Estimated GFR 10 ml/min 10/10/20 04:47 BUN/Creatinine Ratio 12 % 10/10/20 04:47 Glucose 191 mg/dL (75-100) H 10/10/20 04:47 POC Glucose 297 mg/dL (70-105) H 10/10/20 11:43 Hemoglobin A1c 10.0 % (4-6) H 10/10/20 04:47 Lactic Acid 2.20 mmol/L (0.7-2.0) H* 10/10/20 04:47 Calcium 9.1 mg/dL (8.4-10.2) 10/10/20 04:47 Phosphorus 8.10 mg/dL (2.5-4.5) H 10/04/20 04:58 Ferritin > 2000.0 ng/mL (30.0-300.0) H 10/06/20 10:38 Total Bilirubin 0.30 mg/dL (0.1-1.2) 10/10/20 04:47 Direct Bilirubin < 0.2 mg/dL (0-0.2) 10/03/20 05:25 Indirect Bilirubin 0.1 mg/dL 10/03/20 05:25 AST 61 units/L (5-40) H 10/10/20 04:47 ALT 63 units/L (7-56) H 10/10/20 04:47 Alkaline Phosphatase 156 units/L (35-129) H 10/10/20 04:47 Lactate Dehydrogenase 688 units/L (91-180) H 10/10/20 04:47 Total Creatine Kinase 473 units/L (55-170) H 10/07/20 06:00 CK-MB (CK-2) 14.8 ng/mL (0.0-4.0) H 10/02/20 01:01 CK-MB (CK-2) Rel Index 0.5 (0-4) 10/02/20 01:01 Troponin T 0.036 ng/mL (0.00-0.029) H 10/02/20 01:01 C-Reactive Protein 9.90 mg/dL (0.00-1.30) H 10/10/20 04:47 Total Protein 7.1 g/dL (6.3-8.2) D 10/10/20 04:47 Albumin 2.5 g/dL (3.9-5) L 10/10/20 04:47 Albumin/Globulin Ratio 0.5 % 10/10/20 04:47 Triglycerides 602 mg/dL (2-149) H 10/10/20 04:47 Cholesterol 165 mg/dL (50-199) 10/02/20 01:01 LDL Cholesterol Direct TNR 10/02/20 01:01 HDL Cholesterol 31 mg/dL (40-59) L 10/02/20 01:01 Cholesterol/HDL Ratio 5.32 % 10/02/20 01:01 Lipase 41 units/L (13-60) 10/09/20 18:50 Procalcitonin 18.80 ng/mL (<0.15) 10/02/20 11:47 PTH Intact 140.3 pg/mL (15-65) H 10/04/20 04:58 Arterial Blood Glucose 317 mg/dL (65-95) H 10/10/20 12:10 Arterial Blood Ionized Calcium 4.3 mg/dL (4.6-5.3) L 10/10/20 12:10 Urine Color Alison (Yellow) 10/09/20 18:00 Urine Turbidity Cloudy (Clear) 10/09/20 18:00 Urine pH 5.0 (5.0-7.0) 10/09/20 18:00 Ur Specific [place] 1.018 (1.003-1.030) 10/09/20 18:00 Urine Protein 100 mg/dl mg/dL (Negative) 10/09/20 18:00 Urine Glucose (UA) Neg mg/dL (Negative) 10/09/20 18:00 Urine Ketones Neg mg/dL (Negative) 10/09/20 18:00 Urine Blood Mod (Negative) 10/09/20 18:00 Urine Nitrite Neg (Negative) 10/09/20 18:00 Urine Bilirubin Neg (Negative) 10/09/20 18:00 Urine Urobilinogen < 2.0 mg/dL (<2.0) 10/09/20 18:00 Ur Leukocyte Esterase Tr (Negative) 10/09/20 18:00 Urine WBC (Auto) 20.0 /HPF (0.0-6.0) H 10/09/20 18:00 Urine RBC (Auto) 58.0 /HPF (0.0-6.0) 10/09/20 18:00 U Epithel Cells (Auto) 2.0 /HPF (0-13.0) 10/09/20 18:00 Urine Bacteria (Auto) 2+ /HPF (Negative) 10/09/20 18:00 Amorphous Crystals Few 10/02/20 02:59 Urine Mucus Few /HPF 10/09/20 18:00 Urine Creatinine 156.1 mg/dL (0.1-20.0) H 10/03/20 06:30 Urine Sodium 22 mmol/L 10/03/20 06:30 Urine Opiates Screen Negative 10/02/20 02:59 Urine Methadone Screen Negative 10/02/20 02:59 Ur Barbiturates Screen Negative 10/02/20 02:59 Ur Phencyclidine Scrn Negative 10/02/20 02:59 Ur Amphetamines Screen Negative 10/02/20 02:59 U Benzodiazepines Scrn Negative 10/02/20 02:59 Urine Cocaine Screen Negative 10/02/20 02:59 U Marijuana (THC) Screen Negative 10/02/20 02:59 Drugs of Abuse Note Disclamer 10/02/20 02:59 Plasma/Serum Alcohol < 0.01 % (0-0.07) 10/02/20 01:01 Coronavirus (PCR) Positive (Negative) A 10/02/20 Unknown Hepatitis A IgM Ab Non-reactive (NonReactive) 10/02/20 01:01 Hep Bs Antigen Non-reactive (Negative) 10/02/20 01:01 Hep B Core IgM Ab Non-reactive (NonReactive) 10/02/20 01:01 Hepatitis C Antibody Non-reactive (NonReactive) 10/02/20 01:01 Microbiology: Microbiology 10/09/20 18:00 Urine,Clean Catch Urine Culture - Preliminary NO GROWTH AFTER 24 HOURS 10/09/20 18:50 Peripheral/Venous Blood Culture - Preliminary Culture in Progress 10/09/20 18:50 Peripheral/Venous Blood Culture - Preliminary Culture in Progress [place]/IV: Voiding Method Indwelling Catheter Active Medications - Current Medications Current Medications: Generic Name Dose Route Start Last Admin Trade Name Freq PRN Reason Stop Dose Admin Acetaminophen 650 mg 10/02/20 05:23 10/10/20 10:32 Acetaminophen 325 Mg Tab PO 650 mg Q6H PRN Administration Pain MILD(1-3)/Fever >100.5/CLIFTON Lipase/Protease/Amylase 1 each 10/04/20 12:06 Lipase 10,500/Protease 25,000/Amylase 43,750 (Units) Dr Albarran FEEDTUBE PRN PRN For Clogged Feeding Tube Ascorbic Acid 1,000 mg 10/06/20 22:00 10/10/20 10:31 Ascorbic Acid 500 Mg Tab PO 1,000 mg BID MUSTAPHA Administration Bisacodyl 10 mg 10/02/20 05:23 Bisacodyl 10 Mg Rect Supp MD QDAY PRN Constipation Cholecalciferol 1,000 unit 10/08/20 10:00 10/10/20 10:31 Cholecalciferol (Vit D3) 1000 Unit (25 Mcg) Tab PO 1,000 unit DAILY MUSTAPHA Administration Dexamethasone 6 mg 10/03/20 04:00 10/10/20 03:36 Dexamethasone 4 Mg/Ml Vial IV 10/12/20 04:01 6 mg Q24H MUSTAPHA Administration Dextrose 50 ml 10/02/20 06:44 Dextrose 50% In Water (25gm) 50 Ml Syringe IV Q30MIN PRN Hypoglycemia Protocol Famotidine 20 mg 10/07/20 10:00 10/10/20 10:31 Famotidine 20 Mg Tab PO 20 mg DAILY MUSTAPHA Administration Fentanyl 50 mcg 10/02/20 00:53 Fentanyl 100 Mcg/2 Ml Inj IV Q10MIN PRN ANALGESIA Glycopyrrolate 1 mg 10/06/20 14:00 10/10/20 08:34 Glycopyrrolate 1 Mg Tab PO 1 mg TID MUSTAPHA Administration Heparin Sodium (Porcine) 2,000 unit 10/04/20 12:18 Heparin 10,000 Units/10 Ml Vial IV RADHA PRN hemodialysis Heparin Sodium (Porcine) 3,400 unit 10/04/20 12:51 Heparin 10,000 Units/10 Ml Vial 40 unit/kg (3400 unit) IV Q6H PRN Anti-Xa Assay < 0.1 units/ml Hydrophilic Ointment 1 applic 10/02/20 00:53 Lip Therapy Vaseline TP Q2HR PRN Dry Lips Fentanyl Citrate 2,000 mcg in 100 mls @ 4.2 mls/hr 10/02/20 01:00 10/10/20 11:44 Fentanyl Drip Premix IV 4 mcg/kg/hr TITR MUSTAPHA 16.8 mls/hr Administration Protocol 1 MCG/KG/HR Sodium Chloride 100 mls @ 999 mls/hr 10/04/20 12:18 Nacl 0.9% IV RADHA PRN Hypotension Heparin Sodium/Sodium Chloride 25,000 unit in 500 mls @ 20 mls/hr 10/04/20 14:00 10/10/20 06:32 Heparin/ 0.45% Nacl-25,000 Unit/500 Ml IV 1,000 units/hr TITRATE MUSTAPHA 20 mls/hr Titration Protocol 1,000 UNITS/HR Midazolam HCl 100 mg/ Sodium 100 mls @ 1 mls/hr 10/07/20 15:00 10/10/20 01:45 Chloride IV 5 mg/hr TITR MUSTAPHA 5 mls/hr Administration Protocol 1 MG/HR Cefepime HCl 2 gm in 100 mls @ 200 mls/hr 10/09/20 18:00 10/09/20 20:15 Cefepime/Ns 2 Gm/100 Ml IV 200 mls/hr Q24H MUSTAPHA Administration Protocol Propofol 1,000 mg in 100 mls @ 2.907 mls/hr 10/10/20 02:00 10/10/20 04:30 Diprivan 10 Mg/Ml IV 10 mcg/kg/min TITR MUSTAPHA 5.814 mls/hr Titration Protocol 5 MCG/KG/MIN Norepinephrine 4 mg in 250 mls @ 7.5 mls/hr 10/10/20 12:00 10/10/20 11:46 Levophed Drip 4 Mg/Ns 250 Ml IV 4 mcg/min TITR MUSTAPHA 15 mls/hr Titration Protocol 2 MCG/MIN Sodium Bicarbonate 150 meq/ 1,150 mls @ 50 mls/hr 10/10/20 14:00 Dextrose IV 10/12/20 12:59 DIRECT [facility] Insulin Glargine 30 units 10/10/20 22:00 Insulin Glargine 100 Units/Ml SUB-Q QHS [facility] Insulin Human Lispro 0 unit 10/02/20 12:00 10/10/20 12:05 Insulin Lispro 100 Unit/Ml SUB-Q 6 unit Q6HR [facility] Administration Protocol Magnesium Hydroxide 30 ml 10/02/20 05:23 Magnesium Hydroxide (Mom) Oral Liqd Udc PO Q4H PRN Constipation Metoclopramide HCl 5 mg 10/02/20 05:53 Metoclopramide 10 Mg Tab PO Q6H PRN Nausea And Vomiting Metoclopramide HCl 5 mg 10/09/20 14:00 10/10/20 10:31 Metoclopramide 10 Mg/2 Ml Inj IV 5 mg BID MUSTAPHA Administration Midazolam HCl 2 mg 10/07/20 14:02 10/09/20 21:48 Midazolam 2 Mg/2 Ml Inj IV 2 mg Q10MIN PRN Administration Sedation Multi-Ingred Cream/Lotion/Oil/Oint 1 applic 10/02/20 00:53 Mineral Oil/Petrolatum, White Ophth Oint 3.5 Gm OU Q4HR PRN Dry Eye(s) Ondansetron HCl 4 mg 10/02/20 05:23 Ondansetron 4 Mg/2 Ml Inj IV Q8H PRN Nausea And Vomiting Promethazine HCl 25 mg 10/02/20 05:23 Promethazine 25 Mg Rect Supp MD Q6H PRN Nausea And Vomiting Scopolamine 1 each 10/06/20 13:00 10/09/20 09:40 Scopolamine Transdermal Patch 72 Hr TD 1 each Q3D MUSTAPHA Administration Senna/Docusate Sodium 1 tab 10/11/20 22:00 Sennosides/Docusate Sodium 8.6/50 Mg Tab FEEDTUBE QHS MUSTAPHA Simple Syrup 15 ml 10/04/20 12:06 Simple Syrup 15 Ml FEEDTUBE PRN PRN Hypoglycemia Simple Syrup 30 ml 10/04/20 12:06 Simple Syrup 15 Ml FEEDTUBE PRN PRN Hypoglycemia Sodium Bicarbonate 325 mg 10/04/20 12:06 Sodium Bicarbonate 325 Mg Tab FEEDTUBE PRN PRN For Clogged Feeding Tube Sodium Chloride 10 ml 10/02/20 10:00 10/10/20 10:32 Sodium Chloride 0.9% 10 Ml Flush Syringe IV 10 ml BID MUSTAPHA Administration Sodium Chloride 10 ml 10/02/20 05:23 10/06/20 03:48 Sodium Chloride 0.9% 10 Ml Flush Syringe IV 10 ml PRN PRN Administration LINE FLUSH Zinc Sulfate 220 mg 10/06/20 22:00 10/10/20 10:31 Zinc Sulfate 220 Mg Cap PO 220 mg BID MUSTAPHA Administration Nutrition/Malnutrition Assess - Dietary Evaluation Nutrition/Malnutrition Findings: Nutrition Notes Start: 10/02/20 07:33 Freq: Status: Active Protocol: Document 10/09/20 11:42 (Rec: 10/09/20 12:13 [id number]) Nutrition Notes Initial or Follow up Reassessment Current Diagnosis Acute Kidney Injury,Diabetes, Hypertension,Respiratory Failure Other Pertinent Diagnosis pneu, COVID Current Diet Nepro 1.8 at 40ml/hr Labs/Tests Na 134 K 5.3 BUN 86 Cr 6.3 BG 207 Pertinent Medications Propofol at 12.6 ml/hr (333 kcal) Decadron Miralax Height 5 ft 10.8 in Weight 96.9 kg [place] Body Weight (kg) 77.63 BMI 29.9 Weight change and time frame Wt change noted. Pt on HD PRN and with edema. Weight Status Overweight Subjective/Other Information Pt proned at time of visit. TF off due to potential fluoroscopy, per RN. RN reports she will turn TF on when confirmed d/c fluoroscopy . Pt was tolerating TF at goal rate. Percent of energy/protein needs met: negigible Burn Absent Trauma Absent Current % PO Negligible Minimum of two criteria No physical signs of malnutrition #1 Nutrition Diagnosis Inadequate oral intake Diagnosis Progress(for reassessment Continues documentation) Is patient on ventilator? Yes Is Patient Ambulatory and/or Out of Bed No REE-(Fluker-St. Jeor-confined to bed) [phone] Calculation Used for Recommendations [facility] Additional Notes Protein: (1.2-2g/kg) 101-168g Fluid: 1 ml/kcal or per MD Nutrition Intervention Change Diet Order: continue Nutrition Support: For 12 Prone: 12 h prone: Nepro 1.8 at 10 ml /hr. Flush 50 ml q4h 12 h supine: Nepro 1.8 at 70 ml/hr. Flush 75 ml q4h or per MD. Kcal 1,728 Protein (gm) 78 Fluid (mL) 698 Goal #1 Meet at least 75% of protein and kcal needs via TF Anticipated Discharge Needs: Unable to determine at this time Follow-Up By: 10/13/20 Additional Comments F/u: TF at goal and tolerance
[2020-10-10] MEDS: NORepinephrine/NS 4 MG-250 ML 4 MG/250 ML BAG IV SCH (13:58)
[2020-10-10] MEDS ORDERED: SODIUM BICARBONATE 150 MEQ in DEXTROSE 5% IN WATER 1,000 ML IV SCH (14:00)
--- NOTE | 2020-10-10 16:50 | Progress Note ---
Assessment and Plan Cultures: Blood culture no growth so far Covid PCR: Positive A/P: 50-year-old man past medical history of hypertension, diabetes admitted as COVID #COVID pneumonia: with bilateral pneumonia. Was also found to be covered in vomitus, as such concern for aspiration pneumonia. Completed initial course of ceftriaxone/azithromycin. #Acute hypoxic respiratory failure: Currently vent. #Diabetes: tight glycemic control for best outcomes. #OLIVIA: Renally dose antibiotics. on HD #Elevated LFTs: improving. Recs: -Continue steroids per pulmonary to complete 10 days. -Follow up blood, urine, sputum cultures -Started vancomycin and cefepime -Stop vancomycin if MRSA PCR negative. -Fevers may be central at this point. -If no response after the weekend consider stopping cefepime. -Check MRSA PCR. -given Actemra 10/08/2020 -Not a candidate for remdesivir due to renal failure. Very poor prognosis. Thank you for the consult, we will continue to follow. Dr. Donohue covering this weekend, Dr. De La Rosa taking over Tuesday. Malgorzata Milligan MD [facility] ([facility] O: [phone] F: [phone] Subjective Date of service: 10/10/20 Principal diagnosis: Ac hypoxemic resp; COVID-19; Pneumonia; OLIVIA; Ac encephalopathy; NSTEMI Interval history: Remains persistently febrile, T-max 101.5. White count 17.8 which is approxim ately stable. Cultures are remain no growth so far Imaging personally reviewed: Chest x-ray: Unchanged mild patchy multifocal airspace disease. Objective - Exam Narrative Exam: Physical exam deferred to reduce risk of transmission of COVID-19. Please refer to primary team's note. - Constitutional Vitals: Vital Signs Temp Pulse Resp BP Pulse Ox 98.6 F 123 H 15 90/59 89 10/10/20 16:33 10/10/20 16:45 10/10/20 14:11 10/10/20 16:45 10/10/20 14:11 Temperature -Last 24 Hours Temperature 98.6 F Temperature 99.7 F Temperature 100.6 F Temperature 100.6 F Temperature 101.5 F Temperature 101.7 F Temperature 102.9 F Temperature 101.3 F Temperature 100 F Temperature 101.1 F Temperature 98.3 F Temperature 100.4 F Temperature 99.9 F - Labs CBC & Chem 7: 10/10/20 04:47 10/10/20 04:47 Labs: Abnormal lab results 10/09/20 10/09/20 10/09/20 Range/Units 17:38 18:00 21:00 WBC (4.5-11.0) K/mm3 MCV (84-94) fl MCH (28-32) pg D-Dimer (0-234) ng/mlDDU Heparin Anti-Xa Level (0.3-0.7) U.I./ml ABG pH 7.121 L (7.320-7.450) POC ABG pCO2 60.4 H (32.0-48.0) mmHg POC ABG pO2 72.8 L (83-108) mmHg ABG Oxyhemoglobin 91.0 L (94-98) ABG Sodium 130.2 L (136.0-145.0) mmol/L ABG Potassium 6.6 H (3.40-4.50) mmol/L ABG Chloride 96.0 L (98-107) mmol/L ABG Glucose 198 H (65-95) mg/dL Carboxyhemoglobin (0.5-1.5) Potassium (3.6-5.0) mmol/L Chloride (98-107) mmol/L BUN (9-20) mg/dL Creatinine (0.8-1.3) mg/dL Glucose (75-100) mg/dL POC Glucose 246 H (70-105) mg/dL Hemoglobin A1c (4-6) % Lactic Acid (0.7-2.0) mmol/L AST (5-40) units/L ALT (7-56) units/L Alkaline Phosphatase (35-129) units/L Lactate Dehydrogenase (91-180) units/L C-Reactive Protein (0.00-1.30) mg/dL Albumin (3.9-5) g/dL Triglycerides (2-149) mg/dL Arterial Blood Glucose 198 H (65-95) mg/dL Arterial Blood Ionized Calcium 4.4 L (4.6-5.3) mg/dL Urine WBC (Auto) 20.0 H (0.0-6.0) /HPF 10/09/20 10/09/20 10/10/20 Range/Units 21:36 23:49 04:47 WBC 17.8 H (4.5-11.0) K/mm3 MCV 83 L (84-94) fl MCH 27 L (28-32) pg D-Dimer (0-234) ng/mlDDU Heparin Anti-Xa Level (0.3-0.7) U.I./ml ABG pH (7.320-7.450) POC ABG pCO2 (32.0-48.0) mmHg POC ABG pO2 (83-108) mmHg ABG Oxyhemoglobin (94-98) ABG Sodium (136.0-145.0) mmol/L ABG Potassium (3.40-4.50) mmol/L ABG Chloride (98-107) mmol/L ABG Glucose (65-95) mg/dL Carboxyhemoglobin (0.5-1.5) Potassium (3.6-5.0) mmol/L Chloride (98-107) mmol/L BUN (9-20) mg/dL Creatinine (0.8-1.3) mg/dL Glucose (75-100) mg/dL POC Glucose 200 H 186 H (70-105) mg/dL Hemoglobin A1c (4-6) % Lactic Acid (0.7-2.0) mmol/L AST (5-40) units/L ALT (7-56) units/L Alkaline Phosphatase (35-129) units/L Lactate Dehydrogenase (91-180) units/L C-Reactive Protein (0.00-1.30) mg/dL Albumin (3.9-5) g/dL Triglycerides (2-149) mg/dL Arterial Blood Glucose (65-95) mg/dL Arterial Blood Ionized Calcium (4.6-5.3) mg/dL Urine WBC (Auto) (0.0-6.0) /HPF 10/10/20 10/10/20 10/10/20 Range/Units 04:47 04:47 04:47 WBC (4.5-11.0) K/mm3 MCV (84-94) fl MCH (28-32) pg D-Dimer > 33040 H (0-234) ng/mlDDU Heparin Anti-Xa Level (0.3-0.7) U.I./ml ABG pH (7.320-7.450) POC ABG pCO2 (32.0-48.0) mmHg POC ABG pO2 (83-108) mmHg ABG Oxyhemoglobin (94-98) ABG Sodium (136.0-145.0) mmol/L ABG Potassium (3.40-4.50) mmol/L ABG Chloride (98-107) mmol/L ABG Glucose (65-95) mg/dL Carboxyhemoglobin (0.5-1.5) Potassium 5.8 H (3.6-5.0) mmol/L Chloride 93.4 L (98-107) mmol/L BUN 83 H (9-20) mg/dL Creatinine 6.8 H (0.8-1.3) mg/dL Glucose 191 H (75-100) mg/dL POC Glucose (70-105) mg/dL Hemoglobin A1c (4-6) % Lactic Acid (0.7-2.0) mmol/L AST 61 H (5-40) units/L ALT 63 H (7-56) units/L Alkaline Phosphatase 156 H (35-129) units/L Lactate Dehydrogenase 688 H (91-180) units/L C-Reactive Protein 9.90 H (0.00-1.30) mg/dL Albumin 2.5 L (3.9-5) g/dL Triglycerides 602 H (2-149) mg/dL Arterial Blood Glucose (65-95) mg/dL Arterial Blood Ionized Calcium (4.6-5.3) mg/dL Urine WBC (Auto) (0.0-6.0) /HPF 10/10/20 10/10/20 10/10/20 Range/Units 04:47 04:47 04:47 WBC (4.5-11.0) K/mm3 MCV (84-94) fl MCH (28-32) pg D-Dimer (0-234) ng/mlDDU Heparin Anti-Xa Level 0.11 L (0.3-0.7) U.I./ml ABG pH (7.320-7.450) POC ABG pCO2 (32.0-48.0) mmHg POC ABG pO2 (83-108) mmHg ABG Oxyhemoglobin (94-98) ABG Sodium (136.0-145.0) mmol/L ABG Potassium (3.40-4.50) mmol/L ABG Chloride (98-107) mmol/L ABG Glucose (65-95) mg/dL Carboxyhemoglobin (0.5-1.5) Potassium (3.6-5.0) mmol/L Chloride (98-107) mmol/L BUN (9-20) mg/dL Creatinine (0.8-1.3) mg/dL Glucose (75-100) mg/dL POC Glucose (70-105) mg/dL Hemoglobin A1c 10.0 H (4-6) % Lactic Acid 2.20 H* (0.7-2.0) mmol/L AST (5-40) units/L ALT (7-56) units/L Alkaline Phosphatase (35-129) units/L Lactate Dehydrogenase (91-180) units/L C-Reactive Protein (0.00-1.30) mg/dL Albumin (3.9-5) g/dL Triglycerides (2-149) mg/dL Arterial Blood Glucose (65-95) mg/dL Arterial Blood Ionized Calcium (4.6-5.3) mg/dL Urine WBC (Auto) (0.0-6.0) /HPF 10/10/20 10/10/20 10/10/20 Range/Units 05:15 11:43 12:10 WBC (4.5-11.0) K/mm3 MCV (84-94) fl MCH (28-32) pg D-Dimer (0-234) ng/mlDDU Heparin Anti-Xa Level (0.3-0.7) U.I./ml ABG pH 7.102 L (7.320-7.450) POC ABG pCO2 66.6 H (32.0-48.0) mmHg POC ABG pO2 (83-108) mmHg ABG Oxyhemoglobin (94-98) ABG Sodium 131.3 L (136.0-145.0) mmol/L ABG Potassium 6.3 H (3.40-4.50) mmol/L ABG Chloride (98-107) mmol/L ABG Glucose 317 H (65-95) mg/dL Carboxyhemoglobin 0.4 L (0.5-1.5) Potassium (3.6-5.0) mmol/L Chloride (98-107) mmol/L BUN (9-20) mg/dL Creatinine (0.8-1.3) mg/dL Glucose (75-100) mg/dL POC Glucose 212 H 297 H (70-105) mg/dL Hemoglobin A1c (4-6) % Lactic Acid (0.7-2.0) mmol/L AST (5-40) units/L ALT (7-56) units/L Alkaline Phosphatase (35-129) units/L Lactate Dehydrogenase (91-180) units/L C-Reactive Protein (0.00-1.30) mg/dL Albumin (3.9-5) g/dL Triglycerides (2-149) mg/dL Arterial Blood Glucose 317 H (65-95) mg/dL Arterial Blood Ionized Calcium 4.3 L (4.6-5.3) mg/dL Urine WBC (Auto) (0.0-6.0) /HPF 10/10/20 10/10/20 Range/Units 12:48 12:48 WBC (4.5-11.0) K/mm3 MCV (84-94) fl MCH (28-32) pg D-Dimer (0-234) ng/mlDDU Heparin Anti-Xa Level < 0.10 L (0.3-0.7) U.I./ml ABG pH (7.320-7.450) POC ABG pCO2 (32.0-48.0) mmHg POC ABG pO2 (83-108) mmHg ABG Oxyhemoglobin (94-98) ABG Sodium (136.0-145.0) mmol/L ABG Potassium (3.40-4.50) mmol/L ABG Chloride (98-107) mmol/L ABG Glucose (65-95) mg/dL Carboxyhemoglobin (0.5-1.5) Potassium (3.6-5.0) mmol/L Chloride (98-107) mmol/L BUN (9-20) mg/dL Creatinine (0.8-1.3) mg/dL Glucose (75-100) mg/dL POC Glucose (70-105) mg/dL Hemoglobin A1c (4-6) % Lactic Acid 2.70 H* (0.7-2.0) mmol/L AST (5-40) units/L ALT (7-56) units/L Alkaline Phosphatase (35-129) units/L Lactate Dehydrogenase (91-180) units/L C-Reactive Protein (0.00-1.30) mg/dL Albumin (3.9-5) g/dL Triglycerides (2-149) mg/dL Arterial Blood Glucose (65-95) mg/dL Arterial Blood Ionized Calcium (4.6-5.3) mg/dL Urine WBC (Auto) (0.0-6.0) /HPF
[2020-10-10] MEDS: CEFEPIME/NS 2 GM/100 ML 2 GM/100 ML BAG IV SCH (18:07)
[2020-10-10] MEDS: VASOPRESSIN 20 UNIT in SODIUM CHLORIDE 0.9% 100 ML IV SCH (18:15)
[2020-10-10] MEDS ORDERED: METOPROLOL TARTRATE 5 MG/5 ML INJ IV ONE (19:00)
[2020-10-10] MEDS ORDERED: INSULIN GLARGINE 100 UNITS/ML SUB-Q SCH (22:00)
[2020-10-11] MEDS: NORepinephrine/NS 4 MG-250 ML 4 MG/250 ML BAG IV SCH ×2 (02:07→09:00)
[2020-10-11] MEDS: VASOPRESSIN 20 UNIT in SODIUM CHLORIDE 0.9% 100 ML IV SCH (02:08)
[2020-10-11] MEDS: HEPARIN/ 0.45% NACL DRIP 25,000 UNIT/500 ML BAG IV SCH (02:09)
--- NOTE | 2020-10-11 02:47 | XRay Report ---
CHEST 1 VIEW 10/11/2020 1:13 AM INDICATION / CLINICAL INFORMATION: hypoxia. COMPARISON: 10/10/2020 FINDINGS: SUPPORT DEVICES: Lines and tubes again project in expected position HEART / MEDIASTINUM: No significant abnormality. LUNGS / PLEURA: Multifocal bilateral infiltrates, unchanged No pneumothorax. ADDITIONAL FINDINGS: Moderate subcutaneous emphysema both supraclavicular regions, new since prior st udy IMPRESSION: 1. Stable bilateral pneumonia 2. Bilateral subcutaneous emphysema. No visualized pneumothorax or pneumomediastinum although CT ches t would be more sensitive. Signer Name: Roderick Dias MD Signed: 10/11/2020 2:42 AM Workstation Name: [id number]
[2020-10-11 05:49] LABS: Hematocrit 34.7 % (35.5-45.6); Hemoglobin 11.4 gm/dl (11.8-15.2); Mean Corpuscular HGB Conc 33 % (32-34); Mean Corpuscular Volume 84 fl (84-94); Platelet Count 146 K/mm3 (140-440); Red Blood Count 4.13 M/mm3 (3.65-5.03); Red Cell Distribution Width 15.1 % (13.2-15.2)
[2020-10-11] MEDS: INSULIN LISPRO 100 UNIT/ML SUB-Q SCH ×2 (06:40)
[2020-10-11] MEDS: dexAMETHasone 4 MG/ML VIAL IV SCH (06:40)
[2020-10-11] MEDS ORDERED: SODIUM POLYSTYRENE 15 GM/60 ML ORAL LIQD PO ONE ×2 (08:15→18:00)
[2020-10-11] MEDS: GLYCOPYRROLATE 1 MG TAB PO SCH ×2 (08:19→13:41)
[2020-10-11] MEDS: fentaNYL DRIP Premix 2,000 MCG/100 ML BAG IV SCH ×3 (08:59→19:31)
[2020-10-11] MEDS: CHOLECALCIFEROL (VIT D3) 1000 UNIT (25 mcg) TAB PO SCH (09:01)
[2020-10-11] MEDS: FAMOTIDINE 20 MG TAB PO SCH (09:01)
[2020-10-11] MEDS: ZINC SULFATE 220 MG CAP PO SCH (09:01)
[2020-10-11] MEDS: METOCLOPRAMIDE 10 MG/2 ML INJ IV SCH (09:01)
[2020-10-11] MEDS: ASCORBIC ACID 500 MG TAB PO SCH (09:01)
[2020-10-11] MEDS ORDERED: DEXTROSE 50% IN WATER (25GM) 50 ML SYRINGE IV PRN (09:24)
--- NOTE | 2020-10-11 10:11 | Progress Note ---
Assessment and Plan 1. Acute kidney injury: OLIVIA in the setting of severe Covid infection. Received IV contrast 10/02. FeNa low. Renal US negative for hydro. Monitor renal function. BUN and Creatinine level remains high. UOP low. Avoid nephrotoxic agents. Meds dosage based on GFR. 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 Patient was started on hemodialysis due to worsening renal function. Hemodialysis: 10/04, 10/06, 10/08, 10/09, 10/10. HD today. 2. FEN: Hyperkalemia, additional dose of Insulin ordered, HD today, monitor. Low K bath with HD. Cathflo to the dialysis catheter prior to dialysis today, spoke to mandarin speaking nanny. Monitor lytes and volume status. 3. Acute respiratory failure with hypoxemia: 2/2 Covid PNA. On vent, with high settings. Remain hypoxic. 4. Covid PNA: Followed by ID. 5. Acute encephalopathy, POA: Multifactorial. CT brain remarkable for left frontal hypodensity. EEG suggestive of encephalopathy. 6. Rhabdomyolysis: CK level is better. 7. Elevated ALT & AST: Trend. 8. DM type 2: Monitor. Subjective: Patient was seen and examined at the bedside. D/w ICU NAVAL AIRCREWMAN. Examination: General appearance: well-developed, appears stated age, intubated on vent, FiO2 100% HEENT: atraumatic Neck: Trachea midline Respiratory: MV sounds Heart: S1S2, regular Abdomen: soft, BS heard Integumentary: no obvious rash Neurologic: not responding Ext: no edema : Blanchard catheter Hemodialysis access: R IJ temp catheter Subjective Date of service: 10/11/20 Principal diagnosis: elevated lft Objective - Vital Signs Vital signs: Vital Signs - 12hr 10/10/20 10/10/20 10/10/20 22:11 22:21 22:30 Temperature Pulse Rate 120 H 126 H 112 H Pulse Rate [ From Monitor] Respiratory 15 15 15 Rate Blood Pressure 93/53 89/63 93/52 O2 Sat by Pulse 89 88 90 Oximetry 10/10/20 10/10/20 10/10/20 22:41 22:51 23:00 Temperature Pulse Rate 113 H 119 H 116 H Pulse Rate [ From Monitor] Respiratory 15 15 15 Rate Blood Pressure 93/52 98/57 94/58 O2 Sat by Pulse 88 89 89 Oximetry 10/10/20 10/10/20 10/10/20 23:11 23:21 23:30 Temperature Pulse Rate 120 H 130 H 114 H Pulse Rate [ From Monitor] Respiratory 15 15 15 Rate Blood Pressure 94/58 102/57 98/57 O2 Sat by Pulse 92 89 89 Oximetry 10/10/20 10/10/20 10/10/20 23:41 23:45 23:51 Temperature Pulse Rate 119 H 120 H 125 H Pulse Rate [ From Monitor] Respiratory 15 15 Rate Blood Pressure 98/57 98/57 102/60 O2 Sat by Pulse 93 92 92 Oximetry 10/10/20 10/11/20 10/11/20 23:57 00:00 00:11 Temperature 99.4 F Pulse Rate 116 H 118 H Pulse Rate [ 121 H From Monitor] Respiratory 15 15 Rate Blood Pressure 115/71 102/57 O2 Sat by Pulse 91 91 Oximetry 10/11/20 10/11/20 10/11/20 00:21 00:30 00:41 Temperature Pulse Rate 117 H 116 H 110 H Pulse Rate [ From Monitor] Respiratory 15 15 15 Rate Blood Pressure 118/61 123/59 123/59 O2 Sat by Pulse 91 91 93 Oximetry 10/11/20 10/11/20 10/11/20 00:51 01:00 01:11 Temperature Pulse Rate 119 H 109 H 107 H Pulse Rate [ From Monitor] Respiratory 15 15 15 Rate Blood Pressure 122/60 120/57 123/59 O2 Sat by Pulse 92 92 93 Oximetry 10/11/20 10/11/20 10/11/20 01:21 01:30 01:41 Temperature Pulse Rate 106 H 104 H 110 H Pulse Rate [ From Monitor] Respiratory 15 15 15 Rate Blood Pressure 104/72 109/73 109/73 O2 Sat by Pulse 94 94 94 Oximetry 10/11/20 10/11/20 10/11/20 01:51 02:00 02:10 Temperature Pulse Rate 108 H 124 H 110 H Pulse Rate [ From Monitor] Respiratory 15 15 15 Rate Blood Pressure 120/76 107/54 107/54 O2 Sat by Pulse 92 91 89 Oximetry 10/11/20 10/11/20 10/11/20 02:21 02:30 02:41 Temperature Pulse Rate 114 H 111 H 118 H Pulse Rate [ From Monitor] Respiratory 15 16 16 Rate Blood Pressure 108/74 127/72 108/74 O2 Sat by Pulse 93 94 92 Oximetry 10/11/20 10/11/20 10/11/20 02:51 02:54 03:00 Temperature 100.9 F H Pulse Rate 114 H 115 H Pulse Rate [ From Monitor] Respiratory 15 15 Rate Blood Pressure 121/71 135/61 O2 Sat by Pulse 93 93 Oximetry 10/11/20 10/11/20 10/11/20 03:11 03:21 03:30 Temperature Pulse Rate 103 H 116 H 95 H Pulse Rate [ From Monitor] Respiratory 17 5 L 13 Rate Blood Pressure 135/61 110/74 111/73 O2 Sat by Pulse 92 93 93 Oximetry 10/11/20 10/11/20 10/11/20 03:40 03:41 03:51 Temperature Pulse Rate 104 H 115 H 105 H Pulse Rate [ From Monitor] Respiratory 15 15 Rate Blood Pressure 111/73 135/61 126/73 O2 Sat by Pulse 94 93 93 Oximetry 10/11/20 10/11/20 10/11/20 04:00 04:11 04:21 Temperature Pulse Rate 112 H 102 H 106 H Pulse Rate [ 102 H From Monitor] Respiratory 15 15 15 Rate Blood Pressure 102/63 102/63 125/75 O2 Sat by Pulse 94 94 94 Oximetry 10/11/20 10/11/20 10/11/20 04:30 04:41 04:51 Temperature Pulse Rate 101 H 103 H 109 H Pulse Rate [ From Monitor] Respiratory 15 14 16 Rate Blood Pressure 121/73 121/73 95/63 O2 Sat by Pulse 95 93 94 Oximetry 10/11/20 10/11/20 10/11/20 05:00 05:11 05:21 Temperature Pulse Rate 114 H 102 H 102 H Pulse Rate [ From Monitor] Respiratory 15 15 15 Rate Blood Pressure 98/57 121/73 113/68 O2 Sat by Pulse 93 94 94 Oximetry 10/11/20 10/11/20 10/11/20 05:30 05:41 05:51 Temperature Pulse Rate 100 H 97 H 101 H Pulse Rate [ From Monitor] Respiratory 15 15 15 Rate Blood Pressure 106/72 106/72 109/73 O2 Sat by Pulse 95 95 95 Oximetry 10/11/20 10/11/20 10/11/20 06:00 06:11 06:21 Temperature Pulse Rate 98 H 101 H 95 H Pulse Rate [ From Monitor] Respiratory 15 15 16 Rate Blood Pressure 113/68 113/68 106/71 O2 Sat by Pulse 95 94 95 Oximetry 10/11/20 10/11/20 10/11/20 06:30 06:41 06:51 Temperature Pulse Rate 94 H 94 H 97 H Pulse Rate [ From Monitor] Respiratory 15 15 15 Rate Blood Pressure 102/72 102/72 111/69 O2 Sat by Pulse 95 95 95 Oximetry 10/11/20 10/11/20 10/11/20 07:00 07:11 07:21 Temperature Pulse Rate 97 H 101 H 102 H Pulse Rate [ From Monitor] Respiratory 15 15 16 Rate Blood Pressure 110/69 110/69 108/73 O2 Sat by Pulse 95 94 95 Oximetry 10/11/20 10/11/20 10/11/20 07:30 07:41 07:45 Temperature Pulse Rate 98 H 104 H 113 H Pulse Rate [ From Monitor] Respiratory 15 15 Rate Blood Pressure 108/70 108/70 103/60 O2 Sat by Pulse 95 95 94 Oximetry 10/11/20 10/11/20 10/11/20 07:51 08:00 08:11 Temperature 100.6 F H Pulse Rate 119 H 112 H 120 H Pulse Rate [ From Monitor] Respiratory 16 19 17 Rate Blood Pressure 103/60 93/57 93/57 O2 Sat by Pulse 95 88 90 Oximetry 10/11/20 10/11/20 10/11/20 08:21 08:31 08:41 Temperature Pulse Rate 120 H 101 H 106 H Pulse Rate [ From Monitor] Respiratory 16 18 20 Rate Blood Pressure 86/53 116/68 116/68 O2 Sat by Pulse 89 91 92 Oximetry 10/11/20 10/11/20 10/11/20 08:51 09:00 09:11 Temperature Pulse Rate 113 H 126 H 118 H Pulse Rate [ From Monitor] Respiratory 20 22 22 Rate Blood Pressure 125/70 120/63 120/63 O2 Sat by Pulse 92 91 88 Oximetry - Lab 10/11/20 04:00 10/11/20 04:00 Most recent lab results ABG pH 7.246 (7.320-7.450) L 10/10/20 20:00 ABG O2 Saturation 90.3 (0-100) 10/10/20 20:00 Calcium 8.0 mg/dL (8.4-10.2) L 10/11/20 04:00 Phosphorus 10.60 mg/dL (2.5-4.5) H 10/11/20 04:00 Magnesium 2.40 mg/dL (1.7-2.3) H 10/11/20 04:00 Urine Creatinine 156.1 mg/dL (0.1-20.0) H 10/03/20 06:30 Urine Sodium 22 mmol/L 10/03/20 06:30 Medications & Allergies - Medications Allergies/Adverse Reactions: Allergies No Known Allergies Allergy (Verified 10/02/20 01:44) Active Medications: Generic Name Dose Route Start Last Admin Trade Name Freq PRN Reason Stop Dose Admin Acetaminophen 650 mg 10/02/20 05:23 10/10/20 10:32 Acetaminophen 325 Mg Tab PO 650 mg Q6H PRN Administration Pain MILD(1-3)/Fever >100.5/[place] Lipase/Protease/Amylase 1 each 10/04/20 12:06 Lipase 10,500/Protease 25,000/Amylase 43,750 (Units) Dr Cap FEEDTUBE PRN PRN For Clogged Feeding Tube Ascorbic Acid 1,000 mg 10/06/20 22:00 10/11/20 09:01 Ascorbic Acid 500 Mg Tab PO 1,000 mg BID MUSTAPHA Administration Bisacodyl 10 mg 10/02/20 05:23 Bisacodyl 10 Mg Rect Supp OR QDAY PRN Constipation Calcium Acetate 1,334 mg 10/11/20 14:00 Calcium Acetate 667 Mg Cap FEEDTUBE TID MUSTAPHA Cholecalciferol 1,000 unit 10/08/20 10:00 10/11/20 09:01 Cholecalciferol (Vit D3) 1000 Unit (25 Mcg) Tab PO 1,000 unit DAILY MUSTAPHA Administration Dexamethasone 6 mg 10/03/20 04:00 10/11/20 06:40 Dexamethasone 4 Mg/Ml Vial IV 10/12/20 04:01 6 mg Q24H MUSTAPHA Administration Dextrose 50 ml 10/02/20 06:44 Dextrose 50% In Water (25gm) 50 Ml Syringe IV Q30MIN PRN Hypoglycemia Protocol Dextrose 50 ml 10/11/20 08:51 Dextrose 50% In Water (25gm) 50 Ml Syringe IV 10/11/20 08:52 ONCE ONE Protocol Dextrose 50 ml 10/11/20 09:24 Dextrose 50% In Water (25gm) 50 Ml Syringe IV Q30MIN PRN Hypoglycemia Protocol Famotidine 20 mg 10/07/20 10:00 10/11/20 09:01 Famotidine 20 Mg Tab PO 20 mg DAILY MUSTAPHA Administration Fentanyl 50 mcg 10/02/20 00:53 Fentanyl 100 Mcg/2 Ml Inj IV Q10MIN PRN ANALGESIA Glycopyrrolate 1 mg 10/06/20 14:00 10/11/20 08:19 Glycopyrrolate 1 Mg Tab PO 1 mg TID MUSTAPHA Administration Heparin Sodium (Porcine) 2,000 unit 10/04/20 12:18 Heparin 10,000 Units/10 Ml Vial IV RADHA PRN hemodialysis Heparin Sodium (Porcine) 3,400 unit 10/04/20 12:51 Heparin 10,000 Units/10 Ml Vial 40 unit/kg (3400 unit) IV Q6H PRN Anti-Xa Assay < 0.1 units/ml Hydrophilic Ointment 1 applic 10/02/20 00:53 Lip Therapy Vaseline TP Q2HR PRN Dry Lips Fentanyl Citrate 2,000 mcg in 100 mls @ 4.2 mls/hr 10/02/20 01:00 10/11/20 08:59 Fentanyl Drip Premix IV 4 mcg/kg/hr TITR MUSTAPHA 16.8 mls/hr Administration Protocol 1 MCG/KG/HR Sodium Chloride 100 mls @ 999 mls/hr 10/04/20 12:18 Nacl 0.9% IV RADHA PRN Hypotension Heparin Sodium/Sodium Chloride 25,000 unit in 500 mls @ 20 mls/hr 10/04/20 14:00 10/11/20 02:09 Heparin/ 0.45% Nacl-25,000 Unit/500 Ml IV 1,000 units/hr TITRATE MUSTAPHA 20 mls/hr Administration Protocol 1,000 UNITS/HR Midazolam HCl 100 mg/ Sodium 100 mls @ 1 mls/hr 10/07/20 15:00 10/10/20 22:36 Chloride IV 2 mg/hr TITR MUSTAPHA 2 mls/hr Administration Protocol 1 MG/HR Cefepime HCl 2 gm in 100 mls @ 200 mls/hr 10/09/20 18:00 10/10/20 18:07 Cefepime/Ns 2 Gm/100 Ml IV 200 mls/hr Q24H MUSTAPHA Administration Protocol Propofol 1,000 mg in 100 mls @ 2.907 mls/hr 10/10/20 02:00 10/10/20 13:14 Diprivan 10 Mg/Ml IV 0 mcg/kg/min TITR MUSTAPHA 0 mls/hr Titration Protocol 5 MCG/KG/MIN Sodium Bicarbonate 150 meq/ 1,150 mls @ 50 mls/hr 10/10/20 14:00 10/10/20 13:47 Dextrose IV 10/12/20 12:59 50 mls/hr DIRECT MUSTAPHA Administration Norepinephrine 4 mg in 250 mls @ 7.5 mls/hr 10/10/20 14:00 10/11/20 09:14 Levophed Drip 4 Mg/Ns 250 Ml IV 0 mcg/min TITR MUSTAPHA 0 mls/hr Titration Protocol 2 MCG/MIN Vasopressin 20 unit/ Sodium 101 mls @ 9.09 mls/hr 10/10/20 16:00 10/11/20 09:14 Chloride IV 0 units/min TITR MUSTAPHA 0 mls/hr Titration Protocol 0.03 UNITS/MIN Insulin Glargine 35 units 10/11/20 22:00 Insulin Glargine 100 Units/Ml SUB-Q QHS [facility] Insulin Human Regular 8 units 10/11/20 08:51 Insulin Regular, Human 100 Units/1 Ml IV 10/11/20 08:52 ONCE ONE Insulin Human Regular 0 units 10/11/20 10:00 Insulin Regular, Human 100 Units/1 Ml SUB-Q Q6H [facility] Protocol Magnesium Hydroxide 30 ml 10/02/20 05:23 Magnesium Hydroxide (Mom) Oral Liqd Udc PO Q4H PRN Constipation Metoclopramide HCl 5 mg 10/02/20 05:53 Metoclopramide 10 Mg Tab PO Q6H PRN Nausea And Vomiting Metoclopramide HCl 5 mg 10/09/20 14:00 10/11/20 09:01 Metoclopramide 10 Mg/2 Ml Inj IV 5 mg BID MUSTAPHA Administration Midazolam HCl 2 mg 10/07/20 14:02 10/09/20 21:48 Midazolam 2 Mg/2 Ml Inj IV 2 mg Q10MIN PRN Administration Sedation Multi-Ingred Cream/Lotion/Oil/Oint 1 applic 10/02/20 00:53 Mineral Oil/Petrolatum, White Ophth Oint 3.5 Gm OU Q4HR PRN Dry Eye(s) Ondansetron HCl 4 mg 10/02/20 05:23 Ondansetron 4 Mg/2 Ml Inj IV Q8H PRN Nausea And Vomiting Promethazine HCl 25 mg 10/02/20 05:23 Promethazine 25 Mg Rect Supp OR Q6H PRN Nausea And Vomiting Scopolamine 1 each 10/06/20 13:00 10/09/20 09:40 Scopolamine Transdermal Patch 72 Hr TD 1 each Q3D MUSTAPHA Administration Senna/Docusate Sodium 1 tab 10/11/20 22:00 Sennosides/Docusate Sodium 8.6/50 Mg Tab FEEDTUBE QHS MUSTAPHA Simple Syrup 15 ml 10/04/20 12:06 Simple Syrup 15 Ml FEEDTUBE PRN PRN Hypoglycemia Simple Syrup 30 ml 10/04/20 12:06 Simple Syrup 15 Ml FEEDTUBE PRN PRN Hypoglycemia Sodium Bicarbonate 325 mg 10/04/20 12:06 Sodium Bicarbonate 325 Mg Tab FEEDTUBE PRN PRN For Clogged Feeding Tube Sodium Chloride 10 ml 10/02/20 10:00 10/11/20 09:02 Sodium Chloride 0.9% 10 Ml Flush Syringe IV 10 ml BID MUSTAPHA Administration Sodium Chloride 10 ml 10/02/20 05:23 10/06/20 03:48 Sodium Chloride 0.9% 10 Ml Flush Syringe IV 10 ml PRN PRN Administration LINE FLUSH Zinc Sulfate 220 mg 10/06/20 22:00 10/11/20 09:01 Zinc Sulfate 220 Mg Cap PO 220 mg BID MUSTAPHA Administration
[2020-10-11] MEDS ORDERED: INSULIN REGULAR, HUMAN 100 UNITS/1 ML IV ONE (12:00)
[2020-10-11] MEDS ORDERED: DEXTROSE 50% IN WATER (25GM) 50 ML SYRINGE IV ONE (12:00)
[2020-10-11] MEDS: INSULIN REGULAR, HUMAN 100 UNITS/1 ML SUB-Q SCH ×2 (13:42→17:59)
[2020-10-11] MEDS ORDERED: CALCIUM ACETATE 667 MG CAP FEEDTUBE SCH (14:00)
--- NOTE | 2020-10-11 14:37 | Progress Note ---
Assessment and Plan Acute hypoxemic respiratory failure on MVS COVID-19 infection Bilateral pneumonia Acute kidney injury Acute toxic metabolic encephalopathy Rhabdomyolysis Elevated serum inflammatory markers to include the D-dimers as well as ferritin level Non-ST elevation myocardial infarction Oropharyngeal dysphagia - reduced T-high and PIP's dropped from 51 to low 40's - repeat ABG after dialysis - adjust APRV settings further if pO2 acceptable - repeat CXR in am to surveil for pneumothorax - continue HD/UF for toxin and volume clearance - hold proning re: current hemodynamic - continue care as below otherwise; - continue scopolamine and robinul for copious non-bloody secretions - continue Daily SAT and SBT assessment as tolerated - continue to wean supplemental oxygen for target O2 sat's > 90% acutely - VAP bundle addressed - continue lung protective strategies - continue bronchodilators with pulmonary hygiene per RT - wean per pulmonary driven protocols otherwise - continue accuchecks with glycemic control per SSI (While critically ill target blood glucose of 140-180 mg/dL; avoid hypoglycemia) - sedation prn for target RASS 0 to -1 - avoid nephrotoxins, renally dose all medications - continue to avoid benzodiazepine's, reduce the possibility of delirium - complete AB's per ID rec's - prn analgesia per CPOT score - Maintenance of sleep-wake cycle, avoid delirium - continue enteral nutritional support at goal rate as tolerated - G.I. & VTE prophylaxis - PT/OT/ROM exercises - continue mobility protocols for pressure ulcer prophylaxis - Monitor hemodynamics closely - continue other care per attending / other consultants - discharge planning ongoing concurrently COVID SPECIFIC INTERVENTIONS - To receive Actemra - Remdesivir as per ID/Pulmonary developed protocols (not a candidate) - continue systemic steroids for severe COVID-19 infection empirically - follow repeat COVID tests results - zinc and vitamin C supplementation - Monitor inflammatory markers per facility protocol - ferritin, Ddimer, CRP - therapeutic anticoagulation per system Protocol based on d-dimer and clinical considerations - Continue contact and airborne isolation .... Re-evaluate in am & prn CONDITION: CRITICAL PROGNOSIS: GUARDED CODE STATUS: FULL CODE The high probability of a clinically significant, sudden or life-threatening deterioration of the [respiratory, cardiovascular, renal & neurologic] system(s) required my full and direct attention, intervention and personal management. The aggregate critical care time was [33] minutes without overlap. Time includes spent on; [x] Data Review and interpretation [x] Patient assessment and monitoring of vital signs [x] Documentation [x] Medication orders and management Subjective Date of service: 10/11/20 Principal diagnosis: Ac hypoxemic resp; COVID-19; Pneumonia; OLIVIA; Ac encephalopathy; NSTEMI Interval history: Patient is seen today for: Acute hypoxemic respiratory; COVID-19 infection; P neumonia; OLIVIA; Acute toxic metabolic encephalopathy; NSTEMI Seen and examined at bedside; 24hour events reviewed; nursing and respiratory care staff consulted; no adverse overnight events reported to me; resting in bed; remains on MVS; developed SQ emphysema overnight but intolerant of non-APRV mode at this time; HD/UF ongoing Objective Vital Signs - 12hr 10/11/20 10/11/20 10/11/20 02:41 02:51 02:54 Temperature 100.9 F H Pulse Rate 118 H 114 H Pulse Rate [ From Monitor] Respiratory 16 15 Rate Blood Pressure 108/74 121/71 O2 Sat by Pulse 92 93 Oximetry 10/11/20 10/11/20 10/11/20 03:00 03:11 03:21 Temperature Pulse Rate 115 H 103 H 116 H Pulse Rate [ From Monitor] Respiratory 15 17 5 L Rate Blood Pressure 135/61 135/61 110/74 O2 Sat by Pulse 93 92 93 Oximetry 10/11/20 10/11/20 10/11/20 03:30 03:40 03:41 Temperature Pulse Rate 95 H 104 H 115 H Pulse Rate [ From Monitor] Respiratory 13 15 Rate Blood Pressure 111/73 111/73 135/61 O2 Sat by Pulse 93 94 93 Oximetry 10/11/20 10/11/20 10/11/20 03:51 04:00 04:11 Temperature Pulse Rate 105 H 112 H 102 H Pulse Rate [ 102 H From Monitor] Respiratory 15 15 15 Rate Blood Pressure 126/73 102/63 102/63 O2 Sat by Pulse 93 94 94 Oximetry 10/11/20 10/11/20 10/11/20 04:21 04:30 04:41 Temperature Pulse Rate 106 H 101 H 103 H Pulse Rate [ From Monitor] Respiratory 15 15 14 Rate Blood Pressure 125/75 121/73 121/73 O2 Sat by Pulse 94 95 93 Oximetry 10/11/20 10/11/20 10/11/20 04:51 05:00 05:11 Temperature Pulse Rate 109 H 114 H 102 H Pulse Rate [ From Monitor] Respiratory 16 15 15 Rate Blood Pressure 95/63 98/57 121/73 O2 Sat by Pulse 94 93 94 Oximetry 10/11/20 10/11/20 10/11/20 05:21 05:30 05:41 Temperature Pulse Rate 102 H 100 H 97 H Pulse Rate [ From Monitor] Respiratory 15 15 15 Rate Blood Pressure 113/68 106/72 106/72 O2 Sat by Pulse 94 95 95 Oximetry 10/11/20 10/11/20 10/11/20 05:51 06:00 06:11 Temperature Pulse Rate 101 H 98 H 101 H Pulse Rate [ From Monitor] Respiratory 15 15 15 Rate Blood Pressure 109/73 113/68 113/68 O2 Sat by Pulse 95 95 94 Oximetry 10/11/20 10/11/20 10/11/20 06:21 06:30 06:41 Temperature Pulse Rate 95 H 94 H 94 H Pulse Rate [ From Monitor] Respiratory 16 15 15 Rate Blood Pressure 106/71 102/72 102/72 O2 Sat by Pulse 95 95 95 Oximetry 10/11/20 10/11/20 10/11/20 06:51 07:00 07:11 Temperature Pulse Rate 97 H 97 H 101 H Pulse Rate [ From Monitor] Respiratory 15 15 15 Rate Blood Pressure 111/69 110/69 110/69 O2 Sat by Pulse 95 95 94 Oximetry 10/11/20 10/11/20 10/11/20 07:21 07:30 07:41 Temperature Pulse Rate 102 H 98 H 104 H Pulse Rate [ From Monitor] Respiratory 16 15 15 Rate Blood Pressure 108/73 108/70 108/70 O2 Sat by Pulse 95 95 95 Oximetry 10/11/20 10/11/20 10/11/20 07:45 07:51 08:00 Temperature 99.5 F Pulse Rate 113 H 119 H 112 H Pulse Rate [ From Monitor] Respiratory 16 19 Rate Blood Pressure 103/60 103/60 93/57 O2 Sat by Pulse 94 95 88 Oximetry 10/11/20 10/11/20 10/11/20 08:11 08:21 08:31 Temperature Pulse Rate 120 H 120 H 101 H Pulse Rate [ 120 H From Monitor] Respiratory 17 16 18 Rate Blood Pressure 93/57 86/53 116/68 O2 Sat by Pulse 90 89 91 Oximetry 10/11/20 10/11/20 10/11/20 08:41 08:51 09:00 Temperature Pulse Rate 106 H 113 H 126 H Pulse Rate [ From Monitor] Respiratory 20 20 22 Rate Blood Pressure 116/68 125/70 120/63 O2 Sat by Pulse 92 92 91 Oximetry 10/11/20 10/11/20 10/11/20 09:11 09:21 09:30 Temperature Pulse Rate 118 H 120 H 124 H Pulse Rate [ From Monitor] Respiratory 22 21 22 Rate Blood Pressure 120/63 110/54 92/53 O2 Sat by Pulse 88 88 89 Oximetry 10/11/20 10/11/20 10/11/20 09:41 09:51 10:00 Temperature Pulse Rate 121 H 121 H 118 H Pulse Rate [ From Monitor] Respiratory 22 21 19 Rate Blood Pressure 92/53 107/53 98/48 O2 Sat by Pulse 90 90 89 Oximetry 10/11/20 10/11/20 10/11/20 10:11 10:21 10:30 Temperature Pulse Rate 121 H 118 H 118 H Pulse Rate [ From Monitor] Respiratory 20 20 19 Rate Blood Pressure 98/48 94/48 98/51 O2 Sat by Pulse 89 91 89 Oximetry 10/11/20 10/11/20 10/11/20 10:41 10:51 11:00 Temperature Pulse Rate 123 H 121 H 120 H Pulse Rate [ From Monitor] Respiratory 20 21 20 Rate Blood Pressure 98/51 105/56 101/52 O2 Sat by Pulse 90 91 91 Oximetry 10/11/20 10/11/20 10/11/20 11:04 11:11 11:21 Temperature Pulse Rate 117 H 120 H 119 H Pulse Rate [ From Monitor] Respiratory 20 20 Rate Blood Pressure 101/52 101/52 104/49 O2 Sat by Pulse 90 91 89 Oximetry 10/11/20 10/11/20 10/11/20 11:30 11:41 11:51 Temperature Pulse Rate 120 H 121 H 126 H Pulse Rate [ From Monitor] Respiratory 20 20 20 Rate Blood Pressure 105/50 105/50 105/50 O2 Sat by Pulse 90 89 89 Oximetry 10/11/20 10/11/20 10/11/20 12:00 12:08 12:11 Temperature 99.7 F H Pulse Rate 125 H 118 H 116 H Pulse Rate [ 118 H From Monitor] Respiratory 20 20 20 Rate Blood Pressure 99/54 99/54 O2 Sat by Pulse 89 88 88 Oximetry 10/11/20 10/11/20 10/11/20 12:20 12:30 12:41 Temperature Pulse Rate 115 H 122 H 119 H Pulse Rate [ From Monitor] Respiratory 19 20 19 Rate Blood Pressure 99/54 100/57 100/57 O2 Sat by Pulse 89 88 88 Oximetry 10/11/20 10/11/20 10/11/20 12:51 13:00 13:11 Temperature Pulse Rate 120 H 122 H 121 H Pulse Rate [ From Monitor] Respiratory 20 20 20 Rate Blood Pressure 113/53 114/58 114/58 O2 Sat by Pulse 89 89 89 Oximetry 10/11/20 10/11/20 10/11/20 13:21 13:30 13:41 Temperature Pulse Rate 117 H 122 H 122 H Pulse Rate [ From Monitor] Respiratory 19 20 19 Rate Blood Pressure 112/49 103/55 103/55 O2 Sat by Pulse 90 89 88 Oximetry 10/11/20 10/11/20 13:51 14:00 Temperature Pulse Rate 123 H 110 H Pulse Rate [ From Monitor] Respiratory 20 18 Rate Blood Pressure 94/51 104/63 O2 Sat by Pulse 93 94 Oximetry Constitutional: no acute distress, other (middle aged male with mildly increased respiratory effort at rest on MVS) Eyes: non-icteric ENT: oropharynx moist, other (ETT 24 cm CARY, RIJ HD catheter) Neck: supple, no lymphadenopathy, no JVD, other (large neck circumference) Effort: mildly labored Ascultation: Bilateral: diminished breath sounds, rhonchi, other (+ SQ emphysema to upper chest wall) Percussion: Bilateral: not dull Cardiovascular: regular rate and rhythm, other (S1,S2) Gastrointestinal: normoactive bowel sounds, soft, non-tender, non-distended (protuberant) Integumentary: normal Extremities: no cyanosis, no edema, pulses normal, no ischemia or petechiae Neurologic: pupils equal and round, unable to assess, other (sedated) Psychiatric: other (unable to assess re: AMS) CBC and BMP: 10/11/20 04:00 10/11/20 04:00 ABG, PT/INR, D-dimer: ABG ABG pH 7.246 (7.320-7.450) L 10/10/20 20:00 POC ABG pCO2 53.5 mmHg (32.0-48.0) H 10/10/20 20:00 POC ABG pO2 65.3 mmHg (83-108) L 10/10/20 20:00 POC ABG HCO3 22.7 10/10/20 20:00 ABG O2 Saturation 90.3 (0-100) 10/10/20 20:00 PT/INR, D-dimer PT 14.9 Sec. (12.2-14.9) 10/04/20 14:16 INR 1.12 (0.87-1.13) 10/04/20 14:16 D-Dimer > 12193 ng/mlDDU (0-234) H 10/10/20 04:47 Abnormal lab findings: Abnormal Labs 10/02/20 10/02/20 10/02/20 01:01 01:01 01:01 WBC RBC 5.04 H Hgb Hct MCV 81 L MCH 27 L Seg Neuts % (Manual) 85.0 H Lymphocytes % (Manual) 1.0 L Monocytes % (Manual) 11.0 H Nucleated RBC % 1.0 H Seg Neutrophils # Man 9.4 H Lymphocytes # (Manual) 0.1 L Monocytes # (Manual) 1.2 H PT 15.3 H INR 1.16 H Thrombin Time 23.2 H D-Dimer Heparin Anti-Xa Level ABG pH POC ABG pCO2 POC ABG pO2 ABG Hemoglobin ABG Oxyhemoglobin ABG Sodium ABG Potassium ABG Chloride ABG Glucose Carboxyhemoglobin Sodium 133 L Potassium Chloride 85.1 L BUN 66 H Creatinine 5.6 H Glucose 292 H POC Glucose Hemoglobin A1c Lactic Acid Calcium Phosphorus Magnesium Ferritin AST 173 H ALT 139 H Alkaline Phosphatase Lactate Dehydrogenase Total Creatine Kinase 2544 H CK-MB (CK-2) 14.8 H Troponin T 0.036 H C-Reactive Protein Total Protein Albumin 3.3 L Triglycerides 427 H HDL Cholesterol 31 L PTH Intact Arterial Blood Glucose Arterial Blood Ionized Calcium Urine WBC (Auto) Urine Creatinine Coronavirus (PCR) 10/02/20 10/02/20 10/02/20 02:59 03:51 11:47 WBC RBC Hgb Hct MCV MCH Seg Neuts % (Manual) Lymphocytes % (Manual) Monocytes % (Manual) Nucleated RBC % Seg Neutrophils # Man Lymphocytes # (Manual) Monocytes # (Manual) PT INR Thrombin Time D-Dimer Heparin Anti-Xa Level ABG pH POC ABG pCO2 POC ABG pO2 55.2 L ABG Hemoglobin ABG Oxyhemoglobin 85.4 L ABG Sodium 132.0 L ABG Potassium ABG Chloride 89.0 L ABG Glucose 372 H Carboxyhemoglobin Sodium Potassium Chloride BUN Creatinine Glucose POC Glucose Hemoglobin A1c Lactic Acid Calcium Phosphorus Magnesium Ferritin AST ALT Alkaline Phosphatase Lactate Dehydrogenase Total Creatine Kinase 2548 H CK-MB (CK-2) Troponin T C-Reactive Protein Total Protein Albumin Triglycerides HDL Cholesterol PTH Intact Arterial Blood Glucose 372 H Arterial Blood Ionized Calcium Urine WBC (Auto) 8.0 H Urine Creatinine Coronavirus (PCR) 10/02/20 10/02/20 10/02/20 11:47 11:47 11:47 WBC RBC Hgb Hct MCV MCH Seg Neuts % (Manual) Lymphocytes % (Manual) Monocytes % (Manual) Nucleated RBC % Seg Neutrophils # Man Lymphocytes # (Manual) Monocytes # (Manual) PT INR Thrombin Time D-Dimer 1023.48 H Heparin Anti-Xa Level ABG pH POC ABG pCO2 POC ABG pO2 ABG Hemoglobin ABG Oxyhemoglobin ABG Sodium ABG Potassium ABG Chloride ABG Glucose Carboxyhemoglobin Sodium Potassium Chloride BUN Creatinine Glucose POC Glucose Hemoglobin A1c Lactic Acid Calcium Phosphorus Magnesium Ferritin 8643.0 H AST ALT Alkaline Phosphatase Lactate Dehydrogenase 828 H Total Creatine Kinase CK-MB (CK-2) Troponin T C-Reactive Protein 13.60 H Total Protein Albumin Triglycerides HDL Cholesterol PTH Intact Arterial Blood Glucose Arterial Blood Ionized Calcium Urine WBC (Auto) Urine Creatinine Coronavirus (PCR) 10/02/20 10/02/20 10/02/20 18:48 23:51 Unknown WBC RBC Hgb Hct MCV MCH Seg Neuts % (Manual) Lymphocytes % (Manual) Monocytes % (Manual) Nucleated RBC % Seg Neutrophils # Man Lymphocytes # (Manual) Monocytes # (Manual) PT INR Thrombin Time D-Dimer Heparin Anti-Xa Level ABG pH POC ABG pCO2 POC ABG pO2 ABG Hemoglobin ABG Oxyhemoglobin ABG Sodium ABG Potassium ABG Chloride ABG Glucose Carboxyhemoglobin Sodium Potassium Chloride BUN Creatinine Glucose POC Glucose 441 H 457 H Hemoglobin A1c Lactic Acid Calcium Phosphorus Magnesium Ferritin AST ALT Alkaline Phosphatase Lactate Dehydrogenase Total Creatine Kinase CK-MB (CK-2) Troponin T C-Reactive Protein Total Protein Albumin Triglycerides HDL Cholesterol PTH Intact Arterial Blood Glucose Arterial Blood Ionized Calcium Urine WBC (Auto) Urine Creatinine Coronavirus (PCR) Positive A 10/03/20 10/03/2010/03/21 05:22 05:25 05:25 WBC RBC Hgb Hct MCV MCH Seg Neuts % (Manual) Lymphocytes % (Manual) Monocytes % (Manual) Nucleated RBC % Seg Neutrophils # Man Lymphocytes # (Manual) Monocytes # (Manual) PT INR Thrombin Time D-Dimer Heparin Anti-Xa Level ABG pH POC ABG pCO2 POC ABG pO2 74.3 L ABG Hemoglobin ABG Oxyhemoglobin 93.2 L ABG Sodium 133.6 L ABG Potassium ABG Chloride 92.0 L ABG Glucose 399 H Carboxyhemoglobin 0.3 L Sodium 135 L Potassium Chloride 88.0 L BUN 102 H Creatinine 7.5 H Glucose 383 H POC Glucose Hemoglobin A1c Lactic Acid Calcium Phosphorus Magnesium Ferritin AST 71 H ALT 88 H Alkaline Phosphatase Lactate Dehydrogenase Total Creatine Kinase 1597 H CK-MB (CK-2) Troponin T C-Reactive Protein Total Protein Albumin 2.6 L Triglycerides HDL Cholesterol PTH Intact Arterial Blood Glucose 399 H Arterial Blood Ionized Calcium Urine WBC (Auto) Urine Creatinine Coronavirus (PCR) 10/03/20 10/03/20 10/03/20 06:09 06:30 09:06 WBC RBC Hgb Hct MCV MCH Seg Neuts % (Manual) Lymphocytes % (Manual) Monocytes % (Manual) Nucleated RBC % Seg Neutrophils # Man Lymphocytes # (Manual) Monocytes # (Manual) PT INR Thrombin Time D-Dimer Heparin Anti-Xa Level ABG pH POC ABG pCO2 POC ABG pO2 ABG Hemoglobin ABG Oxyhemoglobin ABG Sodium ABG Potassium ABG Chloride ABG Glucose Carboxyhemoglobin Sodium Potassium Chloride BUN Creatinine Glucose POC Glucose 360 H 298 H Hemoglobin A1c Lactic Acid Calcium Phosphorus Magnesium Ferritin AST ALT Alkaline Phosphatase Lactate Dehydrogenase Total Creatine Kinase CK-MB (CK-2) Troponin T C-Reactive Protein Total Protein Albumin Triglycerides HDL Cholesterol PTH Intact Arterial Blood Glucose Arterial Blood Ionized Calcium Urine WBC (Auto) Urine Creatinine 156.1 H Coronavirus (PCR) 10/03/20 10/03/20 10/03/20 13:07 16:37 21:32 WBC RBC Hgb Hct MCV MCH Seg Neuts % (Manual) Lymphocytes % (Manual) Monocytes % (Manual) Nucleated RBC % Seg Neutrophils # Man Lymphocytes # (Manual) Monocytes # (Manual) PT INR Thrombin Time D-Dimer Heparin Anti-Xa Level ABG pH POC ABG pCO2 POC ABG pO2 ABG Hemoglobin ABG Oxyhemoglobin ABG Sodium ABG Potassium ABG Chloride ABG Glucose Carboxyhemoglobin Sodium Potassium Chloride BUN Creatinine Glucose POC Glucose 243 H 229 H 169 H Hemoglobin A1c Lactic Acid Calcium Phosphorus Magnesium Ferritin AST ALT Alkaline Phosphatase Lactate Dehydrogenase Total Creatine Kinase CK-MB (CK-2) Troponin T C-Reactive Protein Total Protein Albumin Triglycerides HDL Cholesterol PTH Intact Arterial Blood Glucose Arterial Blood Ionized Calcium Urine WBC (Auto) Urine Creatinine Coronavirus (PCR) 10/03/20 10/04/20 10/04/20 23:09 03:26 04:58 WBC RBC Hgb Hct MCV MCH Seg Neuts % (Manual) Lymphocytes % (Manual) Monocytes % (Manual) Nucleated RBC % Seg Neutrophils # Man Lymphocytes # (Manual) Monocytes # (Manual) PT INR Thrombin Time D-Dimer Heparin Anti-Xa Level ABG pH POC ABG pCO2 POC ABG pO2 77.8 L ABG Hemoglobin ABG Oxyhemoglobin ABG Sodium ABG Potassium ABG Chloride ABG Glucose Carboxyhemoglobin 0.1 L Sodium Potassium Chloride 97.1 L BUN 112 H Creatinine 8.2 H Glucose 70 L POC Glucose 150 H Hemoglobin A1c Lactic Acid Calcium Phosphorus 8.10 H Magnesium Ferritin AST 50 H ALT 66 H Alkaline Phosphatase Lactate Dehydrogenase Total Creatine Kinase 983 H CK-MB (CK-2) Troponin T C-Reactive Protein Total Protein Albumin 2.6 L Triglycerides HDL Cholesterol PTH Intact Arterial Blood Glucose Arterial Blood Ionized Calcium 4.5 L Urine WBC (Auto) Urine Creatinine Coronavirus (PCR) 10/04/20 10/04/20 10/04/20 04:58 04:58 09:59 WBC 15.7 H RBC Hgb Hct MCV 82 L MCH Seg Neuts % (Manual) Lymphocytes % (Manual) Monocytes % (Manual) Nucleated RBC % Seg Neutrophils # Man Lymphocytes # (Manual) Monocytes # (Manual) PT INR Thrombin Time D-Dimer 2287.60 H Heparin Anti-Xa Level ABG pH POC ABG pCO2 POC ABG pO2 ABG Hemoglobin ABG Oxyhemoglobin ABG Sodium ABG Potassium ABG Chloride ABG Glucose Carboxyhemoglobin Sodium Potassium Chloride BUN Creatinine Glucose POC Glucose Hemoglobin A1c Lactic Acid Calcium Phosphorus Magnesium Ferritin AST ALT Alkaline Phosphatase Lactate Dehydrogenase Total Creatine Kinase CK-MB (CK-2) Troponin T C-Reactive Protein Total Protein Albumin Triglycerides HDL Cholesterol PTH Intact 140.3 H Arterial Blood Glucose Arterial Blood Ionized Calcium Urine WBC (Auto) Urine Creatinine Coronavirus (PCR) 10/04/20 10/04/20 10/04/20 09:59 09:59 11:35 WBC RBC Hgb Hct MCV MCH Seg Neuts % (Manual) Lymphocytes % (Manual) Monocytes % (Manual) Nucleated RBC % Seg Neutrophils # Man Lymphocytes # (Manual) Monocytes # (Manual) PT INR Thrombin Time D-Dimer Heparin Anti-Xa Level ABG pH POC ABG pCO2 POC ABG pO2 ABG Hemoglobin ABG Oxyhemoglobin ABG Sodium ABG Potassium ABG Chloride ABG Glucose Carboxyhemoglobin Sodium Potassium Chloride BUN Creatinine Glucose POC Glucose 126 H Hemoglobin A1c Lactic Acid Calcium Phosphorus Magnesium Ferritin > 2000.0 H AST ALT Alkaline Phosphatase Lactate Dehydrogenase 735 H Total Creatine Kinase CK-MB (CK-2) Troponin T C-Reactive Protein 16.40 H Total Protein Albumin Triglycerides HDL Cholesterol PTH Intact Arterial Blood Glucose Arterial Blood Ionized Calcium Urine WBC (Auto) Urine Creatinine Coronavirus (PCR) 10/04/20 10/04/20 10/04/20 14:16 17:17 21:39 WBC RBC Hgb 11.6 L Hct 35.2 L MCV MCH Seg Neuts % (Manual) Lymphocytes % (Manual) Monocytes % (Manual) Nucleated RBC % Seg Neutrophils # Man Lymphocytes # (Manual) Monocytes # (Manual) PT INR Thrombin Time D-Dimer Heparin Anti-Xa Level ABG pH POC ABG pCO2 POC ABG pO2 ABG Hemoglobin ABG Oxyhemoglobin ABG Sodium ABG Potassium ABG Chloride ABG Glucose Carboxyhemoglobin Sodium Potassium Chloride BUN Creatinine Glucose POC Glucose 178 H 160 H Hemoglobin A1c Lactic Acid Calcium Phosphorus Magnesium Ferritin AST ALT Alkaline Phosphatase Lactate Dehydrogenase Total Creatine Kinase CK-MB (CK-2) Troponin T C-Reactive Protein Total Protein Albumin Triglycerides HDL Cholesterol PTH Intact Arterial Blood Glucose Arterial Blood Ionized Calcium Urine WBC (Auto) Urine Creatinine Coronavirus (PCR) 10/05/20 10/05/20 10/05/20 00:13 03:13 05:04 WBC RBC Hgb Hct MCV MCH Seg Neuts % (Manual) Lymphocytes % (Manual) Monocytes % (Manual) Nucleated RBC % Seg Neutrophils # Man Lymphocytes # (Manual) Monocytes # (Manual) PT INR Thrombin Time D-Dimer Heparin Anti-Xa Level ABG pH POC ABG pCO2 POC ABG pO2 ABG Hemoglobin ABG Oxyhemoglobin ABG Sodium ABG Potassium ABG Chloride ABG Glucose 119 H Carboxyhemoglobin 0.3 L Sodium Potassium Chloride BUN 90 H Creatinine 5.9 H Glucose 107 H POC Glucose 141 H Hemoglobin A1c Lactic Acid Calcium Phosphorus Magnesium Ferritin AST ALT Alkaline Phosphatase Lactate Dehydrogenase Total Creatine Kinase 482 H CK-MB (CK-2) Troponin T C-Reactive Protein Total Protein Albumin Triglycerides HDL Cholesterol PTH Intact Arterial Blood Glucose 119 H Arterial Blood Ionized Calcium 4.4 L Urine WBC (Auto) Urine Creatinine Coronavirus (PCR) 10/05/20 10/05/20 10/05/20 11:33 18:04 21:10 WBC RBC Hgb Hct MCV MCH Seg Neuts % (Manual) Lymphocytes % (Manual) Monocytes % (Manual) Nucleated RBC % Seg Neutrophils # Man Lymphocytes # (Manual) Monocytes # (Manual) PT INR Thrombin Time D-Dimer Heparin Anti-Xa Level ABG pH POC ABG pCO2 POC ABG pO2 ABG Hemoglobin ABG Oxyhemoglobin ABG Sodium ABG Potassium ABG Chloride ABG Glucose Carboxyhemoglobin Sodium Potassium Chloride BUN Creatinine Glucose POC Glucose 136 H 185 H 162 H Hemoglobin A1c Lactic Acid Calcium Phosphorus Magnesium Ferritin AST ALT Alkaline Phosphatase Lactate Dehydrogenase Total Creatine Kinase CK-MB (CK-2) Troponin T C-Reactive Protein Total Protein Albumin Triglycerides HDL Cholesterol PTH Intact Arterial Blood Glucose Arterial Blood Ionized Calcium Urine WBC (Auto) Urine Creatinine Coronavirus (PCR) 10/06/20 10/06/20 10/06/20 02:09 02:09 02:09 WBC 16.3 H RBC Hgb 11.3 L Hct 34.7 L MCV 83 L MCH 27 L Seg Neuts % (Manual) Lymphocytes % (Manual) Monocytes % (Manual) Nucleated RBC % Seg Neutrophils # Man Lymphocytes # (Manual) Monocytes # (Manual) PT INR Thrombin Time D-Dimer Heparin Anti-Xa Level ABG pH POC ABG pCO2 POC ABG pO2 ABG Hemoglobin ABG Oxyhemoglobin ABG Sodium ABG Potassium ABG Chloride ABG Glucose Carboxyhemoglobin Sodium Potassium Chloride BUN 107 H Creatinine 6.6 H Glucose 175 H POC Glucose Hemoglobin A1c Lactic Acid Calcium Phosphorus Magnesium Ferritin AST 52 H ALT Alkaline Phosphatase Lactate Dehydrogenase 802 H Total Creatine Kinase CK-MB (CK-2) Troponin T C-Reactive Protein 27.00 H Total Protein 5.2 L Albumin 2.3 L Triglycerides HDL Cholesterol PTH Intact Arterial Blood Glucose Arterial Blood Ionized Calcium Urine WBC (Auto) Urine Creatinine Coronavirus (PCR) 10/06/20 10/06/20 10/06/20 02:09 02:37 05:12 WBC RBC Hgb Hct MCV MCH Seg Neuts % (Manual) Lymphocytes % (Manual) Monocytes % (Manual) Nucleated RBC % Seg Neutrophils # Man Lymphocytes # (Manual) Monocytes # (Manual) PT INR Thrombin Time D-Dimer Heparin Anti-Xa Level ABG pH POC ABG pCO2 POC ABG pO2 75.5 L ABG Hemoglobin ABG Oxyhemoglobin 93.3 L ABG Sodium ABG Potassium ABG Chloride ABG Glucose 165 H Carboxyhemoglobin 0.1 L Sodium Potassium Chloride BUN Creatinine Glucose POC Glucose 142 H Hemoglobin A1c Lactic Acid Calcium Phosphorus Magnesium Ferritin AST ALT Alkaline Phosphatase Lactate Dehydrogenase Total Creatine Kinase CK-MB (CK-2) Troponin T C-Reactive Protein Total Protein Albumin Triglycerides 392 H HDL Cholesterol PTH Intact Arterial Blood Glucose 165 H Arterial Blood Ionized Calcium Urine WBC (Auto) Urine Creatinine Coronavirus (PCR) 10/06/20 10/06/20 10/06/20 06:53 10:38 11:22 WBC RBC Hgb Hct MCV MCH Seg Neuts % (Manual) Lymphocytes % (Manual) Monocytes % (Manual) Nucleated RBC % Seg Neutrophils # Man Lymphocytes # (Manual) Monocytes # (Manual) PT INR Thrombin Time D-Dimer 2754.80 H Heparin Anti-Xa Level ABG pH POC ABG pCO2 POC ABG pO2 ABG Hemoglobin ABG Oxyhemoglobin ABG Sodium ABG Potassium ABG Chloride ABG Glucose Carboxyhemoglobin Sodium Potassium Chloride BUN Creatinine Glucose POC Glucose 166 H Hemoglobin A1c Lactic Acid Calcium Phosphorus Magnesium Ferritin > 2000.0 H AST ALT Alkaline Phosphatase Lactate Dehydrogenase Total Creatine Kinase CK-MB (CK-2) Troponin T C-Reactive Protein Total Protein Albumin Triglycerides HDL Cholesterol PTH Intact Arterial Blood Glucose Arterial Blood Ionized Calcium Urine WBC (Auto) Urine Creatinine Coronavirus (PCR) 10/06/20 10/06/20 10/07/20 17:52 23:58 05:29 WBC RBC Hgb Hct MCV MCH Seg Neuts % (Manual) Lymphocytes % (Manual) Monocytes % (Manual) Nucleated RBC % Seg Neutrophils # Man Lymphocytes # (Manual) Monocytes # (Manual) PT INR Thrombin Time D-Dimer Heparin Anti-Xa Level ABG pH POC ABG pCO2 POC ABG pO2 ABG Hemoglobin ABG Oxyhemoglobin ABG Sodium ABG Potassium ABG Chloride ABG Glucose Carboxyhemoglobin Sodium Potassium Chloride BUN Creatinine Glucose POC Glucose 221 H 228 H 147 H Hemoglobin A1c Lactic Acid Calcium Phosphorus Magnesium Ferritin AST ALT Alkaline Phosphatase Lactate Dehydrogenase Total Creatine Kinase CK-MB (CK-2) Troponin T C-Reactive Protein Total Protein Albumin Triglycerides HDL Cholesterol PTH Intact Arterial Blood Glucose Arterial Blood Ionized Calcium Urine WBC (Auto) Urine Creatinine Coronavirus (PCR) 10/07/20 10/07/20 10/07/20 06:00 06:00 06:00 WBC 16.2 H RBC Hgb 11.0 L Hct 34.7 L MCV 82 L MCH 26 L Seg Neuts % (Manual) Lymphocytes % (Manual) Monocytes % (Manual) Nucleated RBC % Seg Neutrophils # Man Lymphocytes # (Manual) Monocytes # (Manual) PT INR Thrombin Time D-Dimer Heparin Anti-Xa Level 0.26 L ABG pH POC ABG pCO2 POC ABG pO2 ABG Hemoglobin ABG Oxyhemoglobin ABG Sodium ABG Potassium ABG Chloride ABG Glucose Carboxyhemoglobin Sodium Potassium Chloride 97.3 L BUN 77 H Creatinine 5.7 H Glucose 151 H POC Glucose Hemoglobin A1c Lactic Acid Calcium Phosphorus Magnesium Ferritin AST ALT Alkaline Phosphatase Lactate Dehydrogenase Total Creatine Kinase 473 H CK-MB (CK-2) Troponin T C-Reactive Protein Total Protein Albumin Triglycerides HDL Cholesterol PTH Intact Arterial Blood Glucose Arterial Blood Ionized Calcium Urine WBC (Auto) Urine Creatinine Coronavirus (PCR) 10/07/20 10/07/20 10/07/20 13:14 13:58 17:17 WBC RBC Hgb Hct MCV MCH Seg Neuts % (Manual) Lymphocytes % (Manual) Monocytes % (Manual) Nucleated RBC % Seg Neutrophils # Man Lymphocytes # (Manual) Monocytes # (Manual) PT INR Thrombin Time D-Dimer Heparin Anti-Xa Level ABG pH 7.305 L 7.313 L POC ABG pCO2 POC ABG pO2 49.7 L 45.8 L ABG Hemoglobin ABG Oxyhemoglobin 80.5 L 76.6 L ABG Sodium 133.3 L 131.4 L ABG Potassium 4.6 H ABG Chloride ABG Glucose 125 H 158 H Carboxyhemoglobin Sodium Potassium Chloride BUN Creatinine Glucose POC Glucose 132 H Hemoglobin A1c Lactic Acid Calcium Phosphorus Magnesium Ferritin AST ALT Alkaline Phosphatase Lactate Dehydrogenase Total Creatine Kinase CK-MB (CK-2) Troponin T C-Reactive Protein Total Protein Albumin Triglycerides HDL Cholesterol PTH Intact Arterial Blood Glucose 125 H 158 H Arterial Blood Ionized Calcium 4.5 L 4.5 L Urine WBC (Auto) Urine Creatinine Coronavirus (PCR) 10/07/20 10/07/20 10/08/20 17:40 23:11 04:00 WBC RBC Hgb Hct MCV MCH Seg Neuts % (Manual) Lymphocytes % (Manual) Monocytes % (Manual) Nucleated RBC % Seg Neutrophils # Man Lymphocytes # (Manual) Monocytes # (Manual) PT INR Thrombin Time D-Dimer Heparin Anti-Xa Level ABG pH POC ABG pCO2 POC ABG pO2 46.9 L ABG Hemoglobin ABG Oxyhemoglobin 77.7 L ABG Sodium 134.1 L ABG Potassium 4.6 H ABG Chloride ABG Glucose 120 H Carboxyhemoglobin Sodium Potassium Chloride BUN Creatinine Glucose POC Glucose 152 H 108 H Hemoglobin A1c Lactic Acid Calcium Phosphorus Magnesium Ferritin AST ALT Alkaline Phosphatase Lactate Dehydrogenase Total Creatine Kinase CK-MB (CK-2) Troponin T C-Reactive Protein Total Protein Albumin Triglycerides HDL Cholesterol PTH Intact Arterial Blood Glucose 120 H Arterial Blood Ionized Calcium 4.3 L Urine WBC (Auto) Urine Creatinine Coronavirus (PCR) 10/08/20 10/08/20 10/08/20 04:20 04:20 04:20 WBC 17.1 H RBC Hgb 11.7 L Hct MCV 82 L MCH 26 L Seg Neuts % (Manual) Lymphocytes % (Manual) Monocytes % (Manual) Nucleated RBC % Seg Neutrophils # Man Lymphocytes # (Manual) Monocytes # (Manual) PT INR Thrombin Time D-Dimer 4280.35 H Heparin Anti-Xa Level 0.14 L ABG pH POC ABG pCO2 POC ABG pO2 ABG Hemoglobin ABG Oxyhemoglobin ABG Sodium ABG Potassium ABG Chloride ABG Glucose Carboxyhemoglobin Sodium Potassium 5.1 H D Chloride 94.8 L BUN 103 H Creatinine 7.3 H Glucose 107 H POC Glucose Hemoglobin A1c Lactic Acid Calcium Phosphorus Magnesium Ferritin AST ALT Alkaline Phosphatase Lactate Dehydrogenase 786 H Total Creatine Kinase CK-MB (CK-2) Troponin T C-Reactive Protein 28.70 H Total Protein Albumin Triglycerides HDL Cholesterol PTH Intact Arterial Blood Glucose Arterial Blood Ionized Calcium Urine WBC (Auto) Urine Creatinine Coronavirus (PCR) 10/08/20 10/08/20 10/08/20 12:19 14:12 17:51 WBC RBC Hgb Hct MCV MCH Seg Neuts % (Manual) Lymphocytes % (Manual) Monocytes % (Manual) Nucleated RBC % Seg Neutrophils # Man Lymphocytes # (Manual) Monocytes # (Manual) PT INR Thrombin Time D-Dimer Heparin Anti-Xa Level ABG pH 7.293 L POC ABG pCO2 POC ABG pO2 48.4 L ABG Hemoglobin 11.7 L ABG Oxyhemoglobin 77.4 L ABG Sodium 131.4 L ABG Potassium 4.8 H ABG Chloride ABG Glucose 184 H Carboxyhemoglobin Sodium Potassium Chloride BUN Creatinine Glucose POC Glucose 169 H 165 H Hemoglobin A1c Lactic Acid Calcium Phosphorus Magnesium Ferritin AST ALT Alkaline Phosphatase Lactate Dehydrogenase Total Creatine Kinase CK-MB (CK-2) Troponin T C-Reactive Protein Total Protein Albumin Triglycerides HDL Cholesterol PTH Intact Arterial Blood Glucose 184 H Arterial Blood Ionized Calcium 4.5 L Urine WBC (Auto) Urine Creatinine Coronavirus (PCR) 10/08/20 10/09/20 10/09/20 22:35 04:00 05:08 WBC RBC Hgb Hct MCV MCH Seg Neuts % (Manual) Lymphocytes % (Manual) Monocytes % (Manual) Nucleated RBC % Seg Neutrophils # Man Lymphocytes # (Manual) Monocytes # (Manual) PT INR Thrombin Time D-Dimer Heparin Anti-Xa Level ABG pH POC ABG pCO2 POC ABG pO2 38.5 L ABG Hemoglobin ABG Oxyhemoglobin 64.5 L ABG Sodium 126.7 L ABG Potassium 4.8 H ABG Chloride 95.0 L ABG Glucose 250 H Carboxyhemoglobin Sodium Potassium Chloride BUN Creatinine Glucose POC Glucose 221 H 228 H Hemoglobin A1c Lactic Acid Calcium Phosphorus Magnesium Ferritin AST ALT Alkaline Phosphatase Lactate Dehydrogenase Total Creatine Kinase CK-MB (CK-2) Troponin T C-Reactive Protein Total Protein Albumin Triglycerides HDL Cholesterol PTH Intact Arterial Blood Glucose 250 H Arterial Blood Ionized Calcium 4.4 L Urine WBC (Auto) Urine Creatinine Coronavirus (PCR) 10/09/20 10/09/20 10/09/20 07:15 07:15 07:15 WBC 19.0 H RBC Hgb Hct MCV 82 L MCH 27 L Seg Neuts % (Manual) Lymphocytes % (Manual) Monocytes % (Manual) Nucleated RBC % Seg Neutrophils # Man Lymphocytes # (Manual) Monocytes # (Manual) PT INR Thrombin Time D-Dimer Heparin Anti-Xa Level 0.16 L ABG pH POC ABG pCO2 POC ABG pO2 ABG Hemoglobin ABG Oxyhemoglobin ABG Sodium ABG Potassium ABG Chloride ABG Glucose Carboxyhemoglobin Sodium 134 L Potassium 5.3 H Chloride 90.6 L BUN 86 H Creatinine 6.3 H Glucose 207 H POC Glucose Hemoglobin A1c Lactic Acid Calcium Phosphorus Magnesium Ferritin AST ALT Alkaline Phosphatase Lactate Dehydrogenase Total Creatine Kinase CK-MB (CK-2) Troponin T C-Reactive Protein Total Protein Albumin Triglycerides 864 H HDL Cholesterol PTH Intact Arterial Blood Glucose Arterial Blood Ionized Calcium Urine WBC (Auto) Urine Creatinine Coronavirus (PCR) 10/09/20 10/09/20 10/09/20 11:17 13:34 17:38 WBC RBC Hgb Hct MCV MCH Seg Neuts % (Manual) Lymphocytes % (Manual) Monocytes % (Manual) Nucleated RBC % Seg Neutrophils # Man Lymphocytes # (Manual) Monocytes # (Manual) PT INR Thrombin Time D-Dimer Heparin Anti-Xa Level ABG pH 7.164 L POC ABG pCO2 67.6 H POC ABG pO2 74.5 L ABG Hemoglobin ABG Oxyhemoglobin 89.8 L ABG Sodium 128.0 L ABG Potassium 5.9 H ABG Chloride 94.0 L ABG Glucose 255 H Carboxyhemoglobin Sodium Potassium Chloride BUN Creatinine Glucose POC Glucose 197 H 246 H Hemoglobin A1c Lactic Acid Calcium Phosphorus Magnesium Ferritin AST ALT Alkaline Phosphatase Lactate Dehydrogenase Total Creatine Kinase CK-MB (CK-2) Troponin T C-Reactive Protein Total Protein Albumin Triglycerides HDL Cholesterol PTH Intact Arterial Blood Glucose 255 H Arterial Blood Ionized Calcium 4.4 L Urine WBC (Auto) Urine Creatinine Coronavirus (PCR) 10/09/20 10/09/20 10/09/20 18:00 21:00 21:36 WBC RBC Hgb Hct MCV MCH Seg Neuts % (Manual) Lymphocytes % (Manual) Monocytes % (Manual) Nucleated RBC % Seg Neutrophils # Man Lymphocytes # (Manual) Monocytes # (Manual) PT INR Thrombin Time D-Dimer Heparin Anti-Xa Level ABG pH 7.121 L POC ABG pCO2 60.4 H POC ABG pO2 72.8 L ABG Hemoglobin ABG Oxyhemoglobin 91.0 L ABG Sodium 130.2 L ABG Potassium 6.6 H ABG Chloride 96.0 L ABG Glucose 198 H Carboxyhemoglobin Sodium Potassium Chloride BUN Creatinine Glucose POC Glucose 200 H Hemoglobin A1c Lactic Acid Calcium Phosphorus Magnesium Ferritin AST ALT Alkaline Phosphatase Lactate Dehydrogenase Total Creatine Kinase CK-MB (CK-2) Troponin T C-Reactive Protein Total Protein Albumin Triglycerides HDL Cholesterol PTH Intact Arterial Blood Glucose 198 H Arterial Blood Ionized Calcium 4.4 L Urine WBC (Auto) 20.0 H Urine Creatinine Coronavirus (PCR) 10/09/20 10/10/20 10/10/20 23:49 04:47 04:47 WBC 17.8 H RBC Hgb Hct MCV 83 L MCH 27 L Seg Neuts % (Manual) Lymphocytes % (Manual) Monocytes % (Manual) Nucleated RBC % Seg Neutrophils # Man Lymphocytes # (Manual) Monocytes # (Manual) PT INR Thrombin Time D-Dimer > 09780 H Heparin Anti-Xa Level ABG pH POC ABG pCO2 POC ABG pO2 ABG Hemoglobin ABG Oxyhemoglobin ABG Sodium ABG Potassium ABG Chloride ABG Glucose Carboxyhemoglobin Sodium Potassium Chloride BUN Creatinine Glucose POC Glucose 186 H Hemoglobin A1c Lactic Acid Calcium Phosphorus Magnesium Ferritin AST ALT Alkaline Phosphatase Lactate Dehydrogenase Total Creatine Kinase CK-MB (CK-2) Troponin T C-Reactive Protein Total Protein Albumin Triglycerides HDL Cholesterol PTH Intact Arterial Blood Glucose Arterial Blood Ionized Calcium Urine WBC (Auto) Urine Creatinine Coronavirus (PCR) 10/10/20 10/10/20 10/10/20 04:47 04:47 04:47 WBC RBC Hgb Hct MCV MCH Seg Neuts % (Manual) Lymphocytes % (Manual) Monocytes % (Manual) Nucleated RBC % Seg Neutrophils # Man Lymphocytes # (Manual) Monocytes # (Manual) PT INR Thrombin Time D-Dimer Heparin Anti-Xa Level ABG pH POC ABG pCO2 POC ABG pO2 ABG Hemoglobin ABG Oxyhemoglobin ABG Sodium ABG Potassium ABG Chloride ABG Glucose Carboxyhemoglobin Sodium Potassium 5.8 H Chloride 93.4 L BUN 83 H Creatinine 6.8 H Glucose 191 H POC Glucose Hemoglobin A1c Lactic Acid 2.20 H* Calcium Phosphorus Magnesium Ferritin AST 61 H ALT 63 H Alkaline Phosphatase 156 H Lactate Dehydrogenase 688 H Total Creatine Kinase CK-MB (CK-2) Troponin T C-Reactive Protein 9.90 H Total Protein Albumin 2.5 L Triglycerides 602 H HDL Cholesterol PTH Intact Arterial Blood Glucose Arterial Blood Ionized Calcium Urine WBC (Auto) Urine Creatinine Coronavirus (PCR) 10/10/20 10/10/20 10/10/20 04:47 04:47 05:15 WBC RBC Hgb Hct MCV MCH Seg Neuts % (Manual) Lymphocytes % (Manual) Monocytes % (Manual) Nucleated RBC % Seg Neutrophils # Man Lymphocytes # (Manual) Monocytes # (Manual) PT INR Thrombin Time D-Dimer Heparin Anti-Xa Level 0.11 L ABG pH POC ABG pCO2 POC ABG pO2 ABG Hemoglobin ABG Oxyhemoglobin ABG Sodium ABG Potassium ABG Chloride ABG Glucose Carboxyhemoglobin Sodium Potassium Chloride BUN Creatinine Glucose POC Glucose 212 H Hemoglobin A1c 10.0 H Lactic Acid Calcium Phosphorus Magnesium Ferritin AST ALT Alkaline Phosphatase Lactate Dehydrogenase Total Creatine Kinase CK-MB (CK-2) Troponin T C-Reactive Protein Total Protein Albumin Triglycerides HDL Cholesterol PTH Intact Arterial Blood Glucose Arterial Blood Ionized Calcium Urine WBC (Auto) Urine Creatinine Coronavirus (PCR) 10/10/20 10/10/20 10/10/20 11:43 12:10 12:48 WBC RBC Hgb Hct MCV MCH Seg Neuts % (Manual) Lymphocytes % (Manual) Monocytes % (Manual) Nucleated RBC % Seg Neutrophils # Man Lymphocytes # (Manual) Monocytes # (Manual) PT INR Thrombin Time D-Dimer Heparin Anti-Xa Level ABG pH 7.102 L POC ABG pCO2 66.6 H POC ABG pO2 ABG Hemoglobin ABG Oxyhemoglobin ABG Sodium 131.3 L ABG Potassium 6.3 H ABG Chloride ABG Glucose 317 H Carboxyhemoglobin 0.4 L Sodium Potassium Chloride BUN Creatinine Glucose POC Glucose 297 H Hemoglobin A1c Lactic Acid 2.70 H* Calcium Phosphorus Magnesium Ferritin AST ALT Alkaline Phosphatase Lactate Dehydrogenase Total Creatine Kinase CK-MB (CK-2) Troponin T C-Reactive Protein Total Protein Albumin Triglycerides HDL Cholesterol PTH Intact Arterial Blood Glucose 317 H Arterial Blood Ionized Calcium 4.3 L Urine WBC (Auto) Urine Creatinine Coronavirus (PCR) 10/10/20 10/10/20 10/10/20 12:48 17:31 20:00 WBC RBC Hgb Hct MCV MCH Seg Neuts % (Manual) Lymphocytes % (Manual) Monocytes % (Manual) Nucleated RBC % Seg Neutrophils # Man Lymphocytes # (Manual) Monocytes # (Manual) PT INR Thrombin Time D-Dimer Heparin Anti-Xa Level < 0.10 L ABG pH 7.246 L POC ABG pCO2 53.5 H POC ABG pO2 65.3 L ABG Hemoglobin ABG Oxyhemoglobin 89.7 L ABG Sodium 131.4 L ABG Potassium 5.2 H ABG Chloride 97.0 L ABG Glucose 264 H Carboxyhemoglobin 0.4 L Sodium Potassium Chloride BUN Creatinine Glucose POC Glucose 247 H Hemoglobin A1c Lactic Acid Calcium Phosphorus Magnesium Ferritin AST ALT Alkaline Phosphatase Lactate Dehydrogenase Total Creatine Kinase CK-MB (CK-2) Troponin T C-Reactive Protein Total Protein Albumin Triglycerides HDL Cholesterol PTH Intact Arterial Blood Glucose 264 H Arterial Blood Ionized Calcium 4.2 L Urine WBC (Auto) Urine Creatinine Coronavirus (PCR) 10/10/20 10/11/20 10/11/20 22:08 04:00 04:00 WBC 20.9 H RBC Hgb 11.4 L Hct 34.7 L MCV MCH Seg Neuts % (Manual) Lymphocytes % (Manual) Monocytes % (Manual) Nucleated RBC % Seg Neutrophils # Man Lymphocytes # (Manual) Monocytes # (Manual) PT INR Thrombin Time D-Dimer Heparin Anti-Xa Level ABG pH POC ABG pCO2 POC ABG pO2 ABG Hemoglobin ABG Oxyhemoglobin ABG Sodium ABG Potassium ABG Chloride ABG Glucose Carboxyhemoglobin Sodium 134 L Potassium 5.5 H Chloride 91.9 L BUN 75 H Creatinine 6.7 H Glucose 340 H POC Glucose 253 H Hemoglobin A1c Lactic Acid Calcium 8.0 L Phosphorus 10.60 H Magnesium 2.40 H Ferritin AST ALT Alkaline Phosphatase Lactate Dehydrogenase Total Creatine Kinase CK-MB (CK-2) Troponin T C-Reactive Protein Total Protein Albumin Triglycerides HDL Cholesterol PTH Intact Arterial Blood Glucose Arterial Blood Ionized Calcium Urine WBC (Auto) Urine Creatinine Coronavirus (PCR) 10/11/20 10/11/20 10/11/20 04:49 04:59 05:00 WBC RBC Hgb Hct MCV MCH Seg Neuts % (Manual) Lymphocytes % (Manual) Monocytes % (Manual) Nucleated RBC % Seg Neutrophils # Man Lymphocytes # (Manual) Monocytes # (Manual) PT INR Thrombin Time D-Dimer Heparin Anti-Xa Level < 0.10 L ABG pH POC ABG pCO2 POC ABG pO2 ABG Hemoglobin ABG Oxyhemoglobin ABG Sodium ABG Potassium ABG Chloride ABG Glucose Carboxyhemoglobin Sodium Potassium Chloride BUN Creatinine Glucose POC Glucose 338 H Hemoglobin A1c Lactic Acid Calcium Phosphorus Magnesium Ferritin AST ALT Alkaline Phosphatase Lactate Dehydrogenase Total Creatine Kinase CK-MB (CK-2) Troponin T C-Reactive Protein Total Protein Albumin Triglycerides 752 H HDL Cholesterol PTH Intact Arterial Blood Glucose Arterial Blood Ionized Calcium Urine WBC (Auto) Urine Creatinine Coronavirus (PCR) 10/11/20 13:07 WBC RBC Hgb Hct MCV MCH Seg Neuts % (Manual) Lymphocytes % (Manual) Monocytes % (Manual) Nucleated RBC % Seg Neutrophils # Man Lymphocytes # (Manual) Monocytes # (Manual) PT INR Thrombin Time D-Dimer Heparin Anti-Xa Level ABG pH POC ABG pCO2 POC ABG pO2 ABG Hemoglobin ABG Oxyhemoglobin ABG Sodium ABG Potassium ABG Chloride ABG Glucose Carboxyhemoglobin Sodium Potassium Chloride BUN Creatinine Glucose POC Glucose 298 H Hemoglobin A1c Lactic Acid Calcium Phosphorus Magnesium Ferritin AST ALT Alkaline Phosphatase Lactate Dehydrogenase Total Creatine Kinase CK-MB (CK-2) Troponin T C-Reactive Protein Total Protein Albumin Triglycerides HDL Cholesterol PTH Intact Arterial Blood Glucose Arterial Blood Ionized Calcium Urine WBC (Auto) Urine Creatinine Coronavirus (PCR) Chest x-ray: image reviewed (SQ emphysema with pneumothorax) Allied health notes reviewed: RT
--- NOTE | 2020-10-11 17:14 | Progress Note ---
Assessment and Plan Assessment and plan: This is a 50-year-old male with HTN, DM who was diagnosed with COVID-19 approximately 1 week prior to presentation admitted for COVID-19 pneumonia, acute respiratory failure, rule out CVA, acute encephalopathy, sepsis, OLIVIA. Neuro: Acute encephalopathy, rule out CVA -Neurology consulted, appreciate recommendations -Goal RASS -3 to -4 while proned, -120 while supine -Sedated with fentanyl, Versed -MRI brain or CT brain pending as patient is too unstable at this time -10/02 CT head with abnormal finding, see reading -10/02 CTA head, see report -10/02 CTA neck, see report -10/02 carotid Doppler ultrasound, see report -10/02 EEG ,see report Cardiology: SR with PAC, H/O HTN -Blood pressure monitoring per protocol -levophed gtt for goal MAP>65, wean as tolerated -Echocardiogram shows LVEF 50 to 55%, saline bubble contrast intravenous injection demonstrates PFO, trace MR, mild AR, trace to mild TR, RVSP is 33 mmHg, mild MS with no pleural effusion -TSH pending Respiratory: Subcu air, acute hypoxic respiratory failure -CM consulted, appreciate recommendations -OETT 7.5 @ 24 lips and currently on APRV 100% -10/11 CXR and ABG reviewed -Serial ABG and CXR -Proning as tolerated for 16 hours-> hold for now -VAP bundle -SAT/SBT when able -Patient has subcu air in upper right and left chest however no pneumothorax demonstrated on CXR GI: Transaminitis, TF,Triglyceridemia -GI and NTR consulted, appreciate recommendations -10/02 abdominal ultrasound shows hepatomegaly, mild splenomegaly and trace perihepatic ascites, see report -BR: Senokot qday . lactulose/miralax dc r/t need for FMS -PPI -Trend LFTs and triglyceride -10/09 triglyceride 864-> lipase 41 -10/02 abdominal ultrasound-> see report : OLIVIA 2/2 COVID 19 with underlying vasomotor nephropathy, acute rhabdomyolysis -Nephrology consulted, appreciate recommendations -Daily weights -Last 24-hour fluid balance positive 2650 however HD removal does not cross over into I and O -Avoid nephrotoxic medications -Renally dose medications -Per nephro: patient received contrast on 10/02; Initiated hemodialysis 10/04 -HD per nephrology -Trend CK, BMP -Sodium Bicarb gtt for 2 liters Endo: Hyperglycemia, h/o DM -Hemoglobin A1c 10 -SSI, Accu-Cheks every 6 -Lantus, titrate as needed -Avoid hypoglycemia Heme: Elevated D-dimer, leukocytosis -Bilateral lower leg Doppler ultrasound negative for DVT/SVT -Transfuse for hemoglobin less than 7 -Systemic anticoagulation with heparin gtt until PE ruled out -Trend CBC ID: Sepsis, COVID-19 pneumonia, lactic acidosis, febrile -Infectious disease consulted, appreciate recommendations -Contact/isolation precautions -Steroids (10/03 through 10/13) -Ceftriaxone azithromycin for 5 days (10/03 through 10/07) -Actemra x1 on 10/08 -Vitamin D/zinc/vitamin C -Patient is not a candidate for remdesivir due to renal function -Trend COVID-19 inflammatory markers -Prone as needed -Recultured and restarted on vancomycin and cefepime 10/09 The high probability of a clinically significant, sudden or life threatening deterioration of the [PULMONARY, NEUROLOGY] system(s) required my full and direct attention, intervention and personal management. The aggregate critical care time was [60] minutes. This time is in addition to time spent performing reported procedures but includes the following: [X] Data Review and interpretation [X] Patient assessment and monitoring of vital signs [X] Documentation [X] Medication orders and management Disposition Plan: icu Total Time Spent with Patient (Minutes): 60 History Interval history: This is a 50-year-old male with HTN, DM who presented to the emergency department on 10/02 s/p being found unresponsive by his family with last known well at 8 PM on 09/30/2020 and was diagnosed with COVID-19 a week prior to presentation. Work-up in the emergency department revealed CK of 2554, transaminitis, elevated troponin, elevated BUN/creatinine and CT scan of the head showed subcortical white matter hypodensity in the right frontal lobe with no acute bleed and CXR showed bilateral pneumonia. Patient was admitted to the hospitalist service with consults to CCM, infectious disease, GI and nephrology as a COVID-19 PUI, OLIVIA, rhabdomyolysis, elevated liver enzymes, troponin, acute hypoxic respiratory failure with rule out CVA. 10/03: Patient continues on full ventilator support. Continues on steroids. Recommend Actemra given elevated CRP and intubation. Continue to monitor renal function. Outbound Sales Professional following patient may need dialysis support but will defer to occupational therapy aide. Will adjust insulin for better blood sugar control. GI input noted: LFT improving, consistent with combination of mild ischemic hepatitis and related to his covid infection, Hepatic synthetic function intact continue supportive care, avoid hepatotoxins and liver enzymes should continue to gradually normalize" Neurologist input is also noted recommending an MRI for further evaluation of abnormal CT head finding. 10/04: Patient seen and examined. D-dimer is elevated. Will start on heparin drip until final embolism is ruled out and DVT is ruled out. Will check creatinine kinase to ensure improvement in the rhabdomyolysis. Called family, unable to Obtain AND COULD NOT LEAVE A MESSAGE PER NURSE PATIENT DOES WAKE UP 10/05: Patient seen and examined, remains on full ventilatory support. Rhabdomylsis, improving, Patient started on HD, Awaiting MRI for further evaluation. CXR done yesterday showed worsening bilateral infiltrate. ID input noted, Patient still following commands some when off sedation. - Continue Dexamethasone. - Awaiting Acetmara- Out of stock for now in the hospital - Renal function precludes Remdesivir - Continue heparin drip considering elevated D.dimer till VTE ruled out. 10/06: This morning has some examination patient sedated on propofol and fentanyl, MV with a PEEP of 14 and 80% FiO2. T-max 101.1. Patient still awaiting Actemra dose. Patient is prone at the time of my examination and will be supine at 1330. 10/07: Patient patient was proned again overnight and supinated around 1300. Patient's ventilatory settings were changed however he remains hypoxemic. Patient will be proned today at 8 PM per [facility]. Versed gtt. Echo to be completed today 10/08: Patient was proned at 2000 and supine now, SP02 now 90%. Remains on AC at 100% FiO2. Possible HD today. Overnight the patient consistently satted in the 8 0s. 10/09: Patient did not have a bowel movement yesterday and has been ordered lactulose and Reglan patient to have hemodialysis today. Continue proning for 16 hours/day as tolerated. Patient hypoxic into the 80s overnight and vent settings were changed today to APRV this afternoon. 10/10: Remains on APRV, latest ABG shows acidosis and given 2 amps bicarb in addition to starting on a bicarb gtt. Levophed ordered for hypotension. 10/11: Nephrology will perform HD today, CCM made vent changes by reducing T-high and PEEP remains on APRV. Patient remains tachycardic with PACs. We will obtain a TSH. Patient with hyperkalemia today. Levophed was titrated off Hospitalist Physical - Constitutional Vitals: Temp Pulse Resp BP Pulse Ox 99.7 F H 116 H 24 152/71 86 10/11/20 14:00 10/11/20 16:45 10/11/20 16:20 10/11/20 16:45 10/11/20 16:20 General appearance: Present: other (Intubated and sedated) - EENT Eyes: Absent: scleral icterus ENT: poor dentition - Neck Neck: Absent: masses or JVD, cervical LAD - Respiratory Respiratory effort: normal, labored Respiratory: bilateral: diminished, rhonchi - Cardiovascular Rhythm: regularly irregular Heart Sounds: Present: S1 & S2. Absent: systolic murmur, diastolic murmur - Extremities Extremities: no ischemia, pulses intact Extremity abnormal: edema Peripheral Pulses: within normal limits - Abdominal General gastrointestinal: soft, non-tender, non-distended, normal bowel sounds - Integumentary Integumentary: Present: warm, dry - Psychiatric Psychiatric: other (Sedated) - Neurologic Neurologic: other (Sedated, intact cough/) HEART Score - HEART Score Troponin: Troponin T 0.036 ng/mL (0.00-0.029) H 10/02/20 01:01 Results - Labs CBC & Chem 7: 10/11/20 04:00 10/11/20 04:00 Labs: Laboratory Last Values WBC 20.9 K/mm3 (4.5-11.0) H 10/11/20 04:00 RBC 4.13 M/mm3 (3.65-5.03) 10/11/20 04:00 Hgb 11.4 gm/dl (11.8-15.2) L 10/11/20 04:00 Hct 34.7 % (35.5-45.6) L 10/11/20 04:00 MCV 84 fl (84-94) 10/11/20 04:00 MCH 28 pg (28-32) 10/11/20 04:00 MCHC 33 % (32-34) 10/11/20 04:00 RDW 15.1 % (13.2-15.2) 10/11/20 04:00 Plt Count 146 K/mm3 (140-440) 10/11/20 04:00 Add Manual Diff Complete 10/02/20 01:01 Total Counted 100 10/02/20 01:01 Seg Neuts % (Manual) 85.0 % (40.0-70.0) H 10/02/20 01:01 Band Neutrophils % 3.0 % 10/02/20 01:01 Lymphocytes % (Manual) 1.0 % (13.4-35.0) L 10/02/20 01:01 Monocytes % (Manual) 11.0 % (0.0-7.3) H 10/02/20 01:01 Nucleated RBC % 1.0 % (0.0-0.9) H 10/02/20 01:01 Seg Neutrophils # Man 9.4 K/mm3 (1.8-7.7) H 10/02/20 01:01 Band Neutrophils # 0.3 K/mm3 10/02/20 01:01 Lymphocytes # (Manual) 0.1 K/mm3 (1.2-5.4) L 10/02/20 01:01 Abs React Lymphs (Man) 0.0 K/mm3 10/02/20 01:01 Monocytes # (Manual) 1.2 K/mm3 (0.0-0.8) H 10/02/20 01:01 Eosinophils # (Manual) 0.0 K/mm3 (0.0-0.4) 10/02/20 01:01 Basophils # (Manual) 0.0 K/mm3 (0.0-0.1) 10/02/20 01:01 Metamyelocytes # 0.0 K/mm3 10/02/20 01:01 Myelocytes # 0.0 K/mm3 10/02/20 01:01 Promyelocytes # 0.0 K/mm3 10/02/20 01:01 Blast Cells # 0.0 K/mm3 10/02/20 01:01 WBC Morphology Not Reportable 10/02/20 01:01 Hypersegmented Neuts Not Reportable 10/02/20 01:01 Hyposegmented Neuts Not Reportable 10/02/20 01:01 Hypogranular Neuts Not Reportable 10/02/20 01:01 Smudge Cells Not Reportable 10/02/20 01:01 Toxic Granulation Not Reportable 10/02/20 01:01 Toxic Vacuolation Not Reportable 10/02/20 01:01 Dohle Bodies Not Reportable 10/02/20 01:01 Pelger-Huet Anomaly Not Reportable 10/02/20 01:01 Yohan Rods Not Reportable 10/02/20 01:01 Platelet Estimate Consistent w auto 10/02/20 01:01 Clumped Platelets Not Reportable 10/02/20 01:01 Plt Clumps, EDTA Not Reportable 10/02/20 01:01 Large Platelets Few 10/02/20 01:01 Giant Platelets Not Reportable 10/02/20 01:01 Platelet Satelliting Not Reportable 10/02/20 01:01 Plt Morphology Comment Not Reportable 10/02/20 01:01 RBC Morphology Not Reportable 10/02/20 01:01 Dimorphic RBCs Not Reportable 10/02/20 01:01 Polychromasia Not Reportable 10/02/20 01:01 Hypochromasia Not Reportable 10/02/20 01:01 Poikilocytosis Not Reportable 10/02/20 01:01 Anisocytosis 1+ 10/02/20 01:01 Microcytosis Not Reportable 10/02/20 01:01 Macrocytosis Not Reportable 10/02/20 01:01 Spherocytes Not Reportable 10/02/20 01:01 Pappenheimer Bodies Not Reportable 10/02/20 01:01 Sickle Cells Not Reportable 10/02/20 01:01 Target Cells Not Reportable 10/02/20 01:01 Tear Drop Cells Not Reportable 10/02/20 01:01 Ovalocytes Not Reportable 10/02/20 01:01 Helmet Cells Not Reportable 10/02/20 01:01 [place] Bodies Not Reportable 10/02/20 01:01 [place] Rings Not Reportable 10/02/20 01:01 [place] Cells Not Reportable 10/02/20 01:01 Bite Cells Not Reportable 10/02/20 01:01 Crenated Cell Not Reportable 10/02/20 01:01 Elliptocytes Not Reportable 10/02/20 01:01 Acanthocytes (Spur) Not Reportable 10/02/20 01:01 Rouleaux Not Reportable 10/02/20 01:01 Hemoglobin C Crystals Not Reportable 10/02/20 01:01 Schistocytes Not Reportable 10/02/20 01:01 Malaria parasites Not Reportable 10/02/20 01:01 [place] Bodies Not Reportable 10/02/20 01:01 Hem Pathologist Commnt No 10/02/20 01:01 PT 14.9 Sec. (12.2-14.9) 10/04/20 14:16 INR 1.12 (0.87-1.13) 10/04/20 14:16 APTT 28.5 Sec. (24.2-36.6) 10/04/20 14:16 Thrombin Time 23.2 Sec. (15.1-19.6) H 10/02/20 01:01 D-Dimer > 35547 ng/mlDDU (0-234) H 10/10/20 04:47 Heparin Anti-Xa Level < 0.10 U.I./ml (0.3-0.7) L 10/11/20 04:49 ABG pH 7.246 (7.320-7.450) L 10/10/20 20:00 POC ABG pCO2 53.5 mmHg (32.0-48.0) H 10/10/20 20:00 POC ABG pO2 65.3 mmHg (83-108) L 10/10/20 20:00 POC ABG HCO3 22.7 10/10/20 20:00 ABG O2 Saturation 90.3 (0-100) 10/10/20 20:00 POC ABG Base Excess -5.0 10/10/20 20:00 ABG Hemoglobin 13.0 (12.0-17.5) 10/10/20 20:00 ABG Oxyhemoglobin 89.7 (94-98) L 10/10/20 20:00 ABG Methemoglobin 0.3 (0.0-1.5) 10/10/20 20:00 ABG Sodium 131.4 mmol/L (136.0-145.0) L 10/10/20 20:00 ABG Potassium 5.2 mmol/L (3.40-4.50) H 10/10/20 20:00 ABG Chloride 97.0 mmol/L (98-107) L 10/10/20 20:00 ABG Glucose 264 mg/dL (65-95) H 10/10/20 20:00 Carboxyhemoglobin 0.4 (0.5-1.5) L 10/10/20 20:00 FiO2 % 100.0 10/10/20 20:00 Sodium 134 mmol/L (137-145) L 10/11/20 04:00 Potassium 5.5 mmol/L (3.6-5.0) H 10/11/20 04:00 Chloride 91.9 mmol/L (98-107) L 10/11/20 04:00 Carbon Dioxide 23 mmol/L (22-30) 10/11/20 04:00 Anion Gap 25 mmol/L 10/11/20 04:00 BUN 75 mg/dL (9-20) H 10/11/20 04:00 Creatinine 6.7 mg/dL (0.8-1.3) H 10/11/20 04:00 Estimated GFR 11 ml/min 10/11/20 04:00 BUN/Creatinine Ratio 11 % 10/11/20 04:00 Glucose 340 mg/dL (75-100) H 10/11/20 04:00 POC Glucose 298 mg/dL (70-105) H 10/11/20 13:07 Hemoglobin A1c 10.0 % (4-6) H 10/10/20 04:47 Lactic Acid 2.70 mmol/L (0.7-2.0) H* 10/10/20 12:48 Calcium 8.0 mg/dL (8.4-10.2) L 10/11/20 04:00 Phosphorus 10.60 mg/dL (2.5-4.5) H 10/11/20 04:00 Magnesium 2.40 mg/dL (1.7-2.3) H 10/11/20 04:00 Ferritin > 2000.0 ng/mL (30.0-300.0) H 10/06/20 10:38 Total Bilirubin 0.30 mg/dL (0.1-1.2) 10/10/20 04:47 Direct Bilirubin < 0.2 mg/dL (0-0.2) 10/03/20 05:25 Indirect Bilirubin 0.1 mg/dL 10/03/20 05:25 AST 61 units/L (5-40) H 10/10/20 04:47 ALT 63 units/L (7-56) H 10/10/20 04:47 Alkaline Phosphatase 156 units/L (35-129) H 10/10/20 04:47 Lactate Dehydrogenase 688 units/L (91-180) H 10/10/20 04:47 Total Creatine Kinase 473 units/L (55-170) H 10/07/20 06:00 CK-MB (CK-2) 14.8 ng/mL (0.0-4.0) H 10/02/20 01:01 CK-MB (CK-2) Rel Index 0.5 (0-4) 10/02/20 01:01 Troponin T 0.036 ng/mL (0.00-0.029) H 10/02/20 01:01 C-Reactive Protein 9.90 mg/dL (0.00-1.30) H 10/10/20 04:47 Total Protein 7.1 g/dL (6.3-8.2) D 10/10/20 04:47 Albumin 2.5 g/dL (3.9-5) L 10/10/20 04:47 Albumin/Globulin Ratio 0.5 % 10/10/20 04:47 Triglycerides 752 mg/dL (2-149) H 10/11/20 05:00 Cholesterol 165 mg/dL (50-199) 10/02/20 01:01 LDL Cholesterol Direct TNR 10/02/20 01:01 HDL Cholesterol 31 mg/dL (40-59) L 10/02/20 01:01 Cholesterol/HDL Ratio 5.32 % 10/02/20 01:01 Lipase 41 units/L (13-60) 10/09/20 18:50 Procalcitonin 18.80 ng/mL (<0.15) 10/02/20 11:47 TSH 0.866 mlU/mL (0.270-4.200) 10/11/20 13:00 PTH Intact 140.3 pg/mL (15-65) H 10/04/20 04:58 Arterial Blood Glucose 264 mg/dL (65-95) H 10/10/20 20:00 Arterial Blood Ionized Calcium 4.2 mg/dL (4.6-5.3) L 10/10/20 20:00 Urine Color Alison (Yellow) 10/09/20 18:00 Urine Turbidity Cloudy (Clear) 10/09/20 18:00 Urine pH 5.0 (5.0-7.0) 10/09/20 18:00 Ur Specific Reasnor 1.018 (1.003-1.030) 10/09/20 18:00 Urine Protein 100 mg/dl mg/dL (Negative) 10/09/20 18:00 Urine Glucose (UA) Neg mg/dL (Negative) 10/09/20 18:00 Urine Ketones Neg mg/dL (Negative) 10/09/20 18:00 Urine Blood Mod (Negative) 10/09/20 18:00 Urine Nitrite Neg (Negative) 10/09/20 18:00 Urine Bilirubin Neg (Negative) 10/09/20 18:00 Urine Urobilinogen < 2.0 mg/dL (<2.0) 10/09/20 18:00 Ur Leukocyte Esterase Tr (Negative) 10/09/20 18:00 Urine WBC (Auto) 20.0 /HPF (0.0-6.0) H 10/09/20 18:00 Urine RBC (Auto) 58.0 /HPF (0.0-6.0) 10/09/20 18:00 U Epithel Cells (Auto) 2.0 /HPF (0-13.0) 10/09/20 18:00 Urine Bacteria (Auto) 2+ /HPF (Negative) 10/09/20 18:00 Amorphous Crystals Few 10/02/20 02:59 Urine Mucus Few /HPF 10/09/20 18:00 Urine Creatinine 156.1 mg/dL (0.1-20.0) H 10/03/20 06:30 Urine Sodium 22 mmol/L 10/03/20 06:30 Random Vancomycin 16.4 ug/mL (0-40.0) 10/11/20 05:00 Urine Opiates Screen Negative 10/02/20 02:59 Urine Methadone Screen Negative 10/02/20 02:59 Ur Barbiturates Screen Negative 10/02/20 02:59 Ur Phencyclidine Scrn Negative 10/02/20 02:59 Ur Amphetamines Screen Negative 10/02/20 02:59 U Benzodiazepines Scrn Negative 10/02/20 02:59 Urine Cocaine Screen Negative 10/02/20 02:59 U Marijuana (THC) Screen Negative 10/02/20 02:59 Drugs of Abuse Note Disclamer 10/02/20 02:59 Plasma/Serum Alcohol < 0.01 % (0-0.07) 10/02/20 01:01 Coronavirus (PCR) Positive (Negative) A 10/02/20 Unknown Hepatitis A IgM Ab Non-reactive (NonReactive) 10/02/20 01:01 Hep Bs Antigen Non-reactive (Negative) 10/02/20 01:01 Hep B Core IgM Ab Non-reactive (NonReactive) 10/02/20 01:01 Hepatitis C Antibody Non-reactive (NonReactive) 10/02/20 01:01 Microbiology: Microbiology 10/10/20 18:15 Tracheal Aspirate Sputum Culture - Preliminary 10/09/20 18:00 Urine,Clean Catch Urine Culture - Final NO GROWTH AFTER 48 HOURS 10/09/20 18:50 Peripheral/Venous Blood Culture - Preliminary NO GROWTH AFTER 24 HOURS 10/09/20 18:50 Peripheral/Venous Blood Culture - Preliminary NO GROWTH AFTER 24 HOURS [place]/IV: Voiding Method Indwelling Catheter Active Medications - Current Medications Current Medications: Generic Name Dose Route Start Last Admin Trade Name Freq PRN Reason Stop Dose Admin Acetaminophen 650 mg 10/02/20 05:23 10/10/20 10:32 Acetaminophen 325 Mg Tab PO 650 mg Q6H PRN Administration Pain MILD(1-3)/Fever >100.5/CLIFTON Lipase/Protease/Amylase 1 each 10/04/20 12:06 Lipase 10,500/Protease 25,000/Amylase 43,750 (Units) Cap FEEDTUBE PRN PRN For Clogged Feeding Tube Ascorbic Acid 1,000 mg 10/06/20 22:00 10/11/20 09:01 Ascorbic Acid 500 Mg Tab PO 1,000 mg BID MUSTAPHA Administration Bisacodyl 10 mg 10/02/20 05:23 Bisacodyl 10 Mg Rect Supp MS QDAY PRN Constipation Calcium Acetate 1,334 mg 10/11/20 14:00 10/11/20 13:41 Calcium Acetate 667 Mg Cap FEEDTUBE 1,334 mg TID MUSTAPHA Administration Cholecalciferol 1,000 unit 10/08/20 10:00 10/11/20 09:01 Cholecalciferol (Vit D3) 1000 Unit (25 Mcg) Tab PO 1,000 unit DAILY MUSTAPHA Administration Dexamethasone 6 mg 10/03/20 04:00 10/11/20 06:40 Dexamethasone 4 Mg/Ml Vial IV 10/12/20 04:01 6 mg Q24H MUSTAPHA Administration Dextrose 50 ml 10/02/20 06:44 Dextrose 50% In Water (25gm) 50 Ml Syringe IV Q30MIN PRN Hypoglycemia Protocol Famotidine 20 mg 10/07/20 10:00 10/11/20 09:01 Famotidine 20 Mg Tab PO 20 mg DAILY MUSTAPHA Administration Fentanyl 50 mcg 10/02/20 00:53 Fentanyl 100 Mcg/2 Ml Inj IV Q10MIN PRN ANALGESIA Glycopyrrolate 1 mg 10/06/20 14:00 10/11/20 13:41 Glycopyrrolate 1 Mg Tab PO 1 mg TID MUSTAPHA Administration Heparin Sodium (Porcine) 2,000 unit 10/04/20 12:18 Heparin 10,000 Units/10 Ml Vial IV RADHA PRN hemodialysis Heparin Sodium (Porcine) 3,400 unit 10/04/20 12:51 Heparin 10,000 Units/10 Ml Vial 40 unit/kg (3400 unit) IV Q6H PRN Anti-Xa Assay < 0.1 units/ml Hydrophilic Ointment 1 applic 10/02/20 00:53 Lip Therapy Vaseline TP Q2HR PRN Dry Lips Fentanyl Citrate 2,000 mcg in 100 mls @ 4.2 mls/hr 10/02/20 01:00 10/11/20 13:39 Fentanyl Drip Premix IV 4 mcg/kg/hr TITR MUSTAPHA 16.8 mls/hr Administration Protocol 1 MCG/KG/HR Sodium Chloride 100 mls @ 999 mls/hr 10/04/20 12:18 Nacl 0.9% IV RADHA PRN Hypotension Heparin Sodium/Sodium Chloride 25,000 unit in 500 mls @ 20 mls/hr 10/04/20 14:00 10/11/20 13:53 Heparin/ 0.45% Nacl-25,000 Unit/500 Ml IV 1,200 units/hr TITRATE MUSTAPHA 24 mls/hr Titration Protocol 1,000 UNITS/HR Midazolam HCl 100 mg/ Sodium 100 mls @ 1 mls/hr 10/07/20 15:00 10/10/20 22:36 Chloride IV 2 mg/hr TITR MUSTAPHA 2 mls/hr Administration Protocol 1 MG/HR Cefepime HCl 2 gm in 100 mls @ 200 mls/hr 10/09/20 18:00 10/10/20 18:07 Cefepime/Ns 2 Gm/100 Ml IV 200 mls/hr Q24H MUSTAPHA Administration Protocol Propofol 1,000 mg in 100 mls @ 2.907 mls/hr 10/10/20 02:00 10/10/20 13:14 Diprivan 10 Mg/Ml IV 0 mcg/kg/min TITR MUSTAPHA 0 mls/hr Titration Protocol 5 MCG/KG/MIN Sodium Bicarbonate 150 meq/ 1,150 mls @ 50 mls/hr 10/10/20 14:00 10/10/20 13 :47 Dextrose IV 10/12/20 12:59 50 mls/hr DIRECT MUSTAPHA Administration Norepinephrine 4 mg in 250 mls @ 7.5 mls/hr 10/10/20 14:00 10/11/20 13:59 Levophed Drip 4 Mg/Ns 250 Ml IV 2 mcg/min TITR MUSTAPHA 7.5 mls/hr Titration Protocol 2 MCG/MIN Vasopressin 20 unit/ Sodium 101 mls @ 9.09 mls/hr 10/10/20 16:00 10/11/20 14:00 Chloride IV 0.03 units/min TITR MUSTAPHA 9.09 mls/hr Titration Protocol 0.03 UNITS/MIN Insulin Glargine 35 units 10/11/20 22:00 Insulin Glargine 100 Units/Ml SUB-Q QHS [facility] Insulin Human Regular 0 units 10/11/20 12:00 10/11/20 13:42 Insulin Regular, Human 100 Units/1 Ml SUB-Q 6 units Q6HR [facility] Administration Protocol Magnesium Hydroxide 30 ml 10/02/20 05:23 Magnesium Hydroxide (Mom) Oral Liqd Udc PO Q4H PRN Constipation Metoclopramide HCl 5 mg 10/02/20 05:53 Metoclopramide 10 Mg Tab PO Q6H PRN Nausea And Vomiting Metoclopramide HCl 5 mg 10/09/20 14:00 10/11/20 09:01 Metoclopramide 10 Mg/2 Ml Inj IV 5 mg BID MUSTAPHA Administration Midazolam HCl 2 mg 10/07/20 14:02 10/09/20 21:48 Midazolam 2 Mg/2 Ml Inj IV 2 mg Q10MIN PRN Administration Sedation Multi-Ingred Cream/Lotion/Oil/Oint 1 applic 10/02/20 00:53 Mineral Oil/Petrolatum, White Ophth Oint 3.5 Gm OU Q4HR PRN Dry Eye(s) Ondansetron HCl 4 mg 10/02/20 05:23 Ondansetron 4 Mg/2 Ml Inj IV Q8H PRN Nausea And Vomiting Promethazine HCl 25 mg 10/02/20 05:23 Promethazine 25 Mg Rect Supp MS Q6H PRN Nausea And Vomiting Scopolamine 1 each 10/06/20 13:00 10/09/20 09:40 Scopolamine Transdermal Patch 72 Hr TD 1 each Q3D MUSTAPHA Administration Senna/Docusate Sodium 1 tab 10/11/20 22:00 Sennosides/Docusate Sodium 8.6/50 Mg Tab FEEDTUBE QHS MUSTAPHA Simple Syrup 15 ml 10/04/20 12:06 Simple Syrup 15 Ml FEEDTUBE PRN PRN Hypoglycemia Simple Syrup 30 ml 10/04/20 12:06 Simple Syrup 15 Ml FEEDTUBE PRN PRN Hypoglycemia Sodium Bicarbonate 325 mg 10/04/20 12:06 Sodium Bicarbonate 325 Mg Tab FEEDTUBE PRN PRN For Clogged Feeding Tube Sodium Chloride 10 ml 10/02/20 10:00 10/11/20 09:02 Sodium Chloride 0.9% 10 Ml Flush Syringe IV 10 ml BID MUSTAPHA Administration Sodium Chloride 10 ml 10/02/20 05:23 10/06/20 03:48 Sodium Chloride 0.9% 10 Ml Flush Syringe IV 10 ml PRN PRN Administration LINE FLUSH Zinc Sulfate 220 mg 10/06/20 22:00 10/11/20 09:01 Zinc Sulfate 220 Mg Cap PO 220 mg BID MUSTAPHA Administration Nutrition/Malnutrition Assess - Dietary Evaluation Nutrition/Malnutrition Findings: Nutrition Notes Start: 10/02/20 07:33 Freq: Status: Active Protocol: Document 10/09/20 11:42 (Rec: 10/09/20 12:13 [email or web address]) Nutrition Notes Initial or Follow up Reassessment Current Diagnosis Acute Kidney Injury,Diabetes, Hypertension,Respiratory Failure Other Pertinent Diagnosis pneu, COVID Current Diet Nepro 1.8 at 40ml/hr Labs/Tests Na 134 K 5.3 BUN 86 Cr 6.3 BG 207 Pertinent Medications Propofol at 12.6 ml/hr (333 kcal) Decadron Miralax Height 5 ft 10.8 in Weight 96.9 kg [place] Body Weight (kg) 77.63 BMI 29.9 Weight change and time frame Wt change noted. Pt on HD PRN and with edema. Weight Status Overweight Subjective/Other Information Pt proned at time of visit. TF off due to potential fluoroscopy, per RN. RN reports she will turn TF on when confirmed d/c fluoroscopy . Pt was tolerating TF at goal rate. Percent of energy/protein needs met: negigible Burn Absent Trauma Absent Current % PO Negligible Minimum of two criteria No physical signs of malnutrition #1 Nutrition Diagnosis Inadequate oral intake Diagnosis Progress(for reassessment Continues documentation) Is patient on ventilator? Yes Is Patient Ambulatory and/or Out of Bed No REE-([place]-[facility] Jeor-confined to bed) [phone] Calculation [facility] Additional Notes Protein: (1.2-2g/kg) 101-168g Fluid: 1 ml/kcal or per MD Nutrition Intervention Change Diet Order: continue Nutrition Support: For 12 Prone: 12 h prone: Nepro 1.8 at 10 ml /hr. Flush 50 ml q4h 12 h supine: Nepro 1.8 at 70 ml/hr. Flush 75 ml q4h or per MD. Kcal 1,728 Protein (gm) 78 Fluid (mL) 698 Goal #1 Meet at least 75% of protein and kcal needs via TF Anticipated Discharge Needs: Unable to determine at this time Follow-Up By: 10/13/20 Additional Comments F/u: TF at goal and tolerance
[2020-10-11] MEDS: CEFEPIME/NS 2 GM/100 ML 2 GM/100 ML BAG IV SCH (17:34)
[2020-10-11] MEDS ORDERED: METOPROLOL TARTRATE 5 MG/5 ML INJ IV ONE (18:52)
[2020-10-11] MEDS ORDERED: AMIODARONE 900 MG in DEXTROSE 5% IN WATER 482 ML IV SCH (21:00)
[2020-10-11] MEDS ORDERED: CALCIUM CHLORIDE 1,000 MG/10 ML SYRINGE IV ONE (21:11)
[2020-10-11] MEDS ORDERED: SODIUM BICARB 8.4% 50 MEQ/50 ML SYRINGE IV ONE (21:11)
[2020-10-11] MEDS ORDERED: EPINEPHrine 30 MG/30 ML INJ IV ONE (21:11)
[2020-10-11] MEDS ORDERED: EPINEPHrine 1 MG/10 ML SYRINGE ONE (21:11)
[2020-10-11] MEDS ORDERED: ATROPINE 0.1% (1 MG/10 ML) CARDIAC SYRINGE ONE (21:11)
[2020-10-11] MEDS ORDERED: SENNOSIDES/DOCUSATE SODIUM 8.6/50 MG TAB FEEDTUBE SCH (22:00)
[2020-10-11] MEDS ORDERED: EPINEPHrine 1 MG/1 ML 8 MG in SODIUM CHLORIDE 0.9% 250ML 242 ML IV SCH (22:00)
[2020-10-11] MEDS ORDERED: INSULIN GLARGINE 100 UNITS/ML SUB-Q SCH (22:00)
--- NOTE | 2020-10-11 22:31 | Death Note ---
Note Date of : 10/11/20 Time of : 10:13 Time Pronounced: 10:13 - Preliminary Cause of (problem) (1) Acute encephalopathy Preliminary cause of Called by the nurse that the patient is coding. Patient is coded multiple times . Patient coded 10 times. Patient was given multiple AP, atropine, multiple calcium gluconate and bicarb. Patient is coding for last couple of hours. At 10:13 PM patient lost pulse and blood pressure. Patient was found asystole. Patient at 10:30 PM on 10/11/2020 due to cardiopulmonary arrest. Covid pneumonia, sepsis, metabolic encephalopathy. Family and daughter is informed. Prognosis is very poor. (2) COVID-19 Preliminary cause of (3) Sepsis Qualifiers: Sepsis type: sepsis due to unspecified organism Sepsis acute organ dysfunction status: with acute organ dysfunction Severe sepsis acute organ dysfunction type: acute respiratory failure Acute respiratory failure type: with hypoxia Severe sepsis shock status: without septic shock Qualified Code(s): A41.9 - Sepsis, unspecified organism; R65.20 - Severe sepsis without septic shock; J96.01 - Acute respiratory failure with hypoxia Preliminary cause of
--- NOTE | 2020-10-11 22:53 | XRay Report ---
CHEST 1 VIEW 10/11/2020 9:45 PM INDICATION / CLINICAL INFORMATION: R/O Pneumothorax. COMPARISON: 1:32 AM same day FINDINGS: SUPPORT DEVICES: Lines and tubes again project in expected position. HEART / MEDIASTINUM: No significant abnormality. LUNGS / PLEURA: Bilateral parenchymal disease, unchanged. No pneumothorax. ADDITIONAL FINDINGS: Bilateral subcutaneous emphysema has moderately improved. IMPRESSION: 1. Resolving subcutaneous emphysema. No visualized pneumomediastinum or pneumothorax. 2. Stable bilateral pneumonia Signer Name: Roderick Dias MD Signed: 10/11/2020 10:48 PM Workstation Name: [id number]
[2020-10-12 00:13] VITALS: BP 174/122
--- NOTE | 2020-10-12 17:35 | Death Summary ---
Summary - Providers Consults: 10/02/20 05:24 Consult to Dietitian/Nutrition [CONS] Routine Physician Instructions: Reason For Exam: Reason for Consult: Diet education Consult to Dietitian/Nutrition [CONS] Routine Physician Instructions: Reason For Exam: Reason for Consult: Nutrition Recommendations Reason for Consult: Diet education Consult to Physician [CONS] Routine Comment: Consulting Provider: BRAXTON GUTIERREZ Physician Instructions: Reason For Exam: RESPIRATORY FAILURE,COVID -19 PNEUMONIA Occupational Therapy Evaluate and Treat [CONS] Routine Comment: Reason For Exam: Neuro deficits Physical Therapy Evaluation and Treat [CONS] Routine Comment: Reason For Exam: Neuro deficits 10/02/20 06:36 Consult to Physician [CONS] Routine Comment: Consulting Provider: DOV SANTANA Physician Instructions: Reason For Exam: OLIVIA,RHABDO. 10/02/20 06:38 Consult to Physician [CONS] Routine Comment: Consulting Provider: TROY RAMON Physician Instructions: Reason For Exam: PNEUMONIA,COVID -19 10/02/20 06:56 Consult to Physician [CONS] Routine Comment: Consulting Provider: GALI LARES Physician Instructions: Reason For Exam: ALTERED MENTAL STATUS, R/O CVA 10/02/20 07:01 Consult to Physician [CONS] Routine Comment: Consulting Provider: SHAHBAZ DOLAN Physician Instructions: Reason For Exam: ELEVATED LFT 10/03/20 16:21 Consult to Dietitian/Nutrition [CONS] Stat Physician Instructions: Reason For Exam: Reason for Consult: Write/Manage Tube Feeding 10/04/20 20:23 Consult to Dietitian/Nutrition [CONS] Routine Physician Instructions: Reason For Exam: Reason for Consult: Write/Manage Tube Feeding Attending: MANDA GLEASON MD - summary Date of admission: 10/02/20 05:23 Date of : 10/11/20 Procedures/treatments rendered: This is a 50-year-old male with HTN, DM who presented to the emergency department on 10/02 s/p being found unresponsive by his family with last known well at 8 PM on 09/30/2020 and was diagnosed with COVID-19 a week prior to presentation. Work-up in the emergency department revealed CK of 2554, transaminitis, elevated troponin, elevated BUN/creatinine and CT scan of the h ead showed subcortical white matter hypodensity in the right frontal lobe with no acute bleed and CXR showed bilateral pneumonia. Patient was admitted to the hospitalist service with consults to CCM, infectious disease, GI and nephrology as a COVID-19 PUI, OLIVIA, rhabdomyolysis, elevated liver enzymes, troponin, acute hypoxic respiratory failure with rule out CVA. On 10/03 we deferred Actemra and hemodialysis to consulting services and insulin was adjusted for blood sugar control, transaminitis noted to be a mix of mild ischemic hepatitis and related to COVID-19 infection, neurologist recommended MRI given eval patient with abdominal CT head finding. On 10/04 patient was started on a heparin drip due to elevated D-dimer there is proven to rhabdomyolysis. On 10/15 patient remained on full ventilatory support with started on hemodialysis and was awaiting MRI for further evaluation and he continued COVID-19 protocol. Patient was proned for several days with minimal improvement. Patient was noted to have constipation and was given lactulose and MiraLAX and mag citrate today for distal bowel movement. Patient ventilator settings were changed from assist control to APRV for improved ventilation. Patient was acidotic which was also treated and was placed on Levophed drip for blood pressure maintenance. Patient was receiving hemodialysis and having PACs which are further investigated. Unfortunately despite efforts to improve patient status he eventually had cardiac arrests multiple times overnight and eventually ROSC was unable to be obtained. Patient was pronounced by nighttime hospitalist who also informed his family. Acute encephalopathy Rule Out CVA SR with PAC H/O HTN Subcu air Acute hypoxic respiratory failure Transaminitis Triglyceridemia OLIVIA 2/2 COVID 19 with underlying vasomotor nephropathy Acute rhabdomyolysis Hyperglycemia h/o DM Elevated D-dimer Leukocytosis Sepsis COVID-19 pneumonia Lactic Acidosis Febrile illness CCT: 30 mins - Final diagnosis (1) Acute encephalopathy Note: Final diagnosis: (2) Acute renal failure Qualifiers: Acute renal failure type: unspecified Qualified Code(s): N17.9 - Acute kidney failure, unspecified Note: Final diagnosis: (3) COVID-19 Note: Final diagnosis: (4) Pneumonia Qualifiers: Pneumonia type: due to unspecified organism Laterality: bilateral Lung location: unspecified part of lung Qualified Code(s): J18.9 - Pneumonia, unspecified organism Note: Final diagnosis: (5) Respiratory failure Qualifiers: Chronicity: acute Respiratory failure complication: hypoxia Qualified Code(s): J96.01 - Acute respiratory failure with hypoxia Note: Final diagnosis: (6) Sepsis Qualifiers: Sepsis type: sepsis due to unspecified organism Sepsis acute organ dysfunction status: with acute organ dysfunction Severe sepsis acute organ dysfunction type: acute respiratory failure Acute respiratory failure type: with hypoxia Severe sepsis shock status: without septic shock Qualified Code(s): A41.9 - Sepsis, unspecified organism; R65.20 - Severe sepsis without septic shock; J96.01 - Acute respiratory failure with hypoxia Note: Final diagnosis: (7) Transaminitis Note: Final diagnosis:
--- NOTE | 2020-10-13 10:58 | Electrocardiograph Report ---
[facility] Test Date: 2020-10-11 Test Time: 19:33:14 Pat Name: LUCERO SANDOVAL Department: Room: A252 1 Gender: M [employer]ic: FER : 1970 Requested By: MANDA GLEASON Order Number: [id number] Reading MD: Roland Sol Measurements Intervals [place] Rate: 146 P: 40 MN: 122 QRS: -11 QRSD: 89 T: 164 QT: 274 QTc: 427 Interpretive Statements Sinus tachycardia Probable left atrial enlargement Compared to ECG 10/10/2020 03:46:22 ST (T wave) deviation no longer present Electronically Signed On 10-13-2020 10:58:40 EDT by Roland Sol
== END 2020-10-11 23:30 | DRG 207 ==
LOC: ED 00:33 → CC1 05:23
PROVIDERS: ADMIT Internal Medicine Geriatric Medicine; ATTEND Internal Medicine
PROC: 5A1955Z Respiratory Ventilation, Greater than 96 Consecutive Hours (ICD-10-PCS; principal; 2020-10-02)
PROC: 0BH17EZ Insertion of Endotracheal Airway into Trachea, Via Natural or Artificial Opening (ICD-10-PCS; 2020-10-02)
PROC: XW033H5 Introduction of Tocilizumab into Peripheral Vein, Percutaneous Approach, New Technology Group 5 (ICD-10-PCS; 2020-10-03)
PROC: 02HV33Z Insertion of Infusion Device into Superior Vena Cava, Percutaneous Approach (ICD-10-PCS; 2020-10-04)
PROC: B548ZZA Ultrasonography of Superior Vena Cava, Guidance (ICD-10-PCS; 2020-10-04)
PROC: 5A1D70Z Performance of Urinary Filtration, Intermittent, Less than 6 Hours Per Day (ICD-10-PCS; 2020-10-04)
PROC: 5A1D70Z Performance of Urinary Filtration, Intermittent, Less than 6 Hours Per Day (ICD-10-PCS; 2020-10-06)
PROC: 4A033R1 Measurement of Arterial Saturation, Peripheral, Percutaneous Approach (ICD-10-PCS; 2020-10-07)
PROC: 5A1D70Z Performance of Urinary Filtration, Intermittent, Less than 6 Hours Per Day (ICD-10-PCS; 2020-10-08)
PROC: 5A1D70Z Performance of Urinary Filtration, Intermittent, Less than 6 Hours Per Day (ICD-10-PCS; 2020-10-09)
PROC: 5A1D70Z Performance of Urinary Filtration, Intermittent, Less than 6 Hours Per Day (ICD-10-PCS; 2020-10-10)
PROC: 5A1D70Z Performance of Urinary Filtration, Intermittent, Less than 6 Hours Per Day (ICD-10-PCS; 2020-10-11)
DX: U07.1 COVID-19 (principal); A41.89 Other specified sepsis; J96.01 Acute respiratory failure with hypoxia; G92 Toxic encephalopathy; I21.4 Non-ST elevation (NSTEMI) myocardial infarction; J12.82 Pneumonia due to coronavirus disease 2019; N17.0 Acute kidney failure with tubular necrosis; N18.6 End stage renal disease; I63.9 Cerebral infarction, unspecified; R65.20 Severe sepsis without septic shock; M62.82 Rhabdomyolysis; I12.0 Hypertensive chronic kidney disease with stage 5 chronic kidney disease or end stage renal disease; R74.8 Abnormal levels of other serum enzymes; F32.9 Major depressive disorder, single episode, unspecified; E78.5 Hyperlipidemia, unspecified; R13.13 Dysphagia, pharyngeal phase; E11.22 Type 2 diabetes mellitus with diabetic chronic kidney disease; E11.65 Type 2 diabetes mellitus with hyperglycemia; K59.00 Constipation, unspecified
CPT/HCPCS: 36415; 36600; 70450; 70496; 70498; 71045; 74018; 76700; 76770; 80048; 80053; 80061; 80074; 80076; 80202; 80307; 80320; 81001; 82140; 82550; 82553; 82570; 82728; 82805; 82962; 83036; 83615; 83690; 83735; 83970; 84100; 84145; 84300; 84443; 84478; 84484; 85007; 85014; 85018; 85025; 85027; 85049; 85379; 85520; 85610; 85670; 85730; 86140; 87040; 87070; 87076; 87086; 87186; 87205; 87641; 93005; 93306; 93880; 93970; 94002; 94003; 95819; 99291; 99292; G0378; G0480; J0171; J0456; J0461; J0692; J0696; J1100; J1644; J1815; J2060; J2250; J2704; J2765; J3010; J3370; J7030; J7040; J7070; Q9967; U0003